=== PATIENT | male | born 1945 | race Caucasian/White ===

== ENCOUNTER 2017-07-08 20:18 | Inpatient (IN) | payer MEDICARE, SELFPAY ==
[2017-07-08 20:19] VITALS: BP 157/92; PULSE 97; RESP 16; TEMP 36.9; O2SAT 94; BMI 36.1
--- NOTE | 2017-07-08 20:49 | CT_ITS ---
STUDY: CT ABDOMEN AND PELVIS WITH CONTRAST REASON FOR EXAM: Male, 71 years old. Abdominal pain and constipation RADIATION DOSAGE (If Supplied By Facility): CTDIvol = ( 16.93 ) mGy, DLP = ( 1282.82 ) mGycm TECHNIQUE: Transaxial images were obtained from the dome of the diaphragm to the symphysis pubis without oral contrast. 100 ml of Isovue 300 contrast was administered. Sagittal and coronal images were reconstructed. Individualized dose optimization techniques were used for this CT. COMPARISON: None. FINDINGS: The visualized lung bases are unremarkable. Calcific aortic valve disease. Normal liver. Normal gallbladder and extrahepatic biliary system. Normal spleen. Normal pancreas. Normal bilateral adrenal glands. Normal right kidney. Normal left kidney. Normal visualized stomach. Normal small intestine. There is a sigmoid volvulus with swirling of the mesentery noted near its root. There is increased gas and stool throughout the colon. There is no bowel wall thickening or pneumatosis. Appendix is not visualized. Normal abdominal aorta. Normal inferior vena cava. Normal retroperitoneum. Normal urinary bladder. There are bilateral fat-containing inguinal hernias. Normal abdominal wall. Mild dextroconvex scoliosis. CT/Abdomen/Pelvis W IV Cont ONLY IMPRESSION: Sigmoid volvulus and colonic ileus. N.B. : The above information has been verbally conveyed by Papa Duke MD to , Covering Physician, on 07/08/2017 22:25:05 (ET). Electronically Signed: Papa Duke MD at 22:22 EST , Service support , N.B. : The above information has been verbally conveyed by Papa Duke MD to , Covering Physician, on 07/08/2017 22:25:05 (ET).
--- NOTE | 2017-07-08 20:53 | ED.VISSUMM ---
- ER Visit Summary Date of Service: 07/08/17 Chief Complaint: Periumbilical abdominal pain History of Present Illness: The patient is a 71 M no prior abdominal surgeries. Patient states that he has had periumbilical abdominal pain since Sunday. Associated constipation with no bowel movement since Sunday. Denies any back pain. No history of aneurysms. Denies any fever. No dysuria. No melena. He has had this before but has never had diverticulitis. States his primary care physician put him on Cipro because that typically seems to help. He denies any fever. He denies any abdominal trauma. Physical Examination: Well-appearing older male. Vital signs are stable afebrile. He does not look septic or toxic. He is in no acute distress. HEENT exam unremarkable. Neck nontender. Lungs clear to auscultation bilaterally. Heart for 6 systolic ejection murmur history of a murmur. Abdomen is distended but soft. Positive bowel sounds. No peritoneal signs. No hernias or masses. Both the right upper right lower quadrants are unremarkable. I do not appreciate any pulsatile mass. He is moving all 4 extremities. Neurovascular intact. Back exam nontender. Neurologically is awake alert without focal deficits. Test Results: CBC normal with a white count 7 H&H 15 and 42. BMP unremarkable potassium of 3.2 with normal BUN and creatinine and gap. Liver enzymes normal. Lipase normal. UA normal. Recent labs including clinic I reviewed his brought and they were unremarkable. CT abdomen pelvis done with IV contrast only as read by the radiologist shows a sigmoid volvulus. No perforation. I did review the CAT scan. Emergency Department Course and Treatment: Abdominal labs and a CT abdomen and we obtained with IV contrast only. He will be treated with IV fluids, morphine and Zofran. Treatment Plan: I spoke with Dr. Heydi Bean general surgeon education paraprofessional should be and evaluate the patient. Disposition: [] Impression: Acute abdominal pain secondary to acute sigmoid volvulus This note was generated with [employer] dictation software. It may contain incorrect words, spelling, and punctuation that were not noted in review of the chart prior to signing ED Disposition - Plan for ED Patient: Chief Complaint: Abd Pain Referrals: Antonio Rangel MD [Primary Care Provider] -
[2017-07-08 21:14] LABS: Absolute Lymphocyte Count 0.68 X10^3/ul (0.83-4.51); Absolute Neutrophil Count 5.7 X10^3/uL (2.0-7.7); Basophil# 0.01 X10^3/uL; Basophil% 0.1 % (0-1); Eosinophil# 0.07 X10^3/uL; Hematocrit 42.3 % (40-54); Lymphocyte # 0.68 X10^3/ul (4.0); Lymphocyte % 9.7 % (19-41); Mean Corp Hgb Conc 35.5 g/gl (32-36); Mean Corpuscular Hgb 30.7 pg (27.0-32.0); Mean Corpuscular Volume 86.7 fL (80-94); Mean Platelet Vol. 10.6 fl (6.2-12.0); Monocyte# 0.56 X10^3/uL; Neutrophil # 5.68 X10^3/uL (2.7-7.7); Neutrophil % 81.1 % (47-70); Platelet Count 151 K/mm3 (150-450); RBC Distribution Width CV 14.1 % (11.6-14.6); RBC Distribution Width SD 44.2 fl (35.1-43.9); Red Blood Count 4.88 M/mm3 (4.6-6.2)
[2017-07-08 21:17] LABS: POSITIVE COUNT NO; POSITIVE DIFFERENTIAL NO; POSITIVE MORPHOLOGY NO
[2017-07-08] MEDS: 0.9% Normal Saline 1,000 ML 125 ML IV (21:22)
[2017-07-08 21:27] LABS: AST(SGOT) 19 U/L (15-37); Alanine Aminotransfer ALT/SGPT 34 U/L (16-61); Alkaline Phosphatase 73 U/L (45-117); Anion Gap 10 (5-15); BUN 13 mg/dL (7-18); Bilirubin, Direct 0.15 mg/dL (0.00-0.30); Calcium,Total 8.7 mg/dL (8.5-10.1); Chloride 101 mmol/L (98-107); Creatinine, Serum 0.86 mg/dL (0.70-1.30); EST Glomerular Filtration Rate 93 mL/min (>60); Est Glom Filt Rate - Afr Amer 112 mL/min (>60); Estimated Creatinine Clearance 88.98 ml/min; Globulin 3.4 g/dL (2.2-4.2); Glucose 113 mg/dL (74-106); Lipase 64 U/L (73-393); Potassium 3.2 mmol/L (3.5-5.1); Protein, Total 7.4 g/dL (6.4-8.2); Sodium Level 138 mmol/L (136-145)
[2017-07-08 21:30] LABS: Bacteria 0 SEEN /hpf (None Seen); Mucous, Urine 0 SEEN /hpf (<or=2+); Red Blood Cells-Urine 0 SEEN /hpf (0-5); White Blood Cells 0 SEEN /hpf (0-5)
[2017-07-08 21:32] LABS: Color, Urine Yellow (Yellow); Glucose, Dipstick Normal (Normal); Ketone-Dipstick 5 mg/dl (Negative); Leukocyte Esterase-Dipstick Negative /ul (Negative); Nitrite-Dipstick Negative (Negative); Occult Blood-Urine Negative /ul (Negative); Protein-Dipstick Negative (Negative); Specific Gravity, Urine 1.015 (1.002-1.030); Urine Bilirubin Dipstick Negative (Negative); Urine Clarity Sl. Cloudy (Clear); Urine Urobilinogen Normal (Normal)
[2017-07-08 21:41] LABS: Squamous Epithelial Cells - UA 0-5 SEEN /hpf (0-5)
[2017-07-08] MEDS: HYDROcodone Bitartrate/Apap 5/325 Tablet PO (22:29)
[2017-07-08 23:09] VITALS: BP 166/95; PULSE 111; RESP 15; TEMP 36.9; O2SAT 94; BMI 36.1
--- NOTE | 2017-07-08 23:16 | ED.RN ---
Dr. Bean at bedside.
--- NOTE | 2017-07-08 23:48 | HP.PCM_ITS ---
History and Physical Date of Admission: 07/08/17 Chief Complaint: abdominal pain History of Present Illness: 71 y/o WM presents with abdominal pain. Noted since Sunday (4 days prior to presentation), has had previous episodes of such pain, he states usually treated with Cipro. He has been dx'd with colitis in past. Denies blood in stools. Has never had a complete colonoscopy, attempts were made at 2014, then had a virtual colonoscopy in 2015. Had attempted colonoscopy in 2009 - could not reach past hepatic flexure. Has constipation, but usually with a bowel movement every day or every other day. Has not had a bowel movement since Sunday, last passed normal flatus on . Denies nausea/emesis. 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 surgery vein laser surgery Medications: flomax effexor ativan bentyl proscar protonix mobic calcium MVI Allergies: augmentin ibuprofen Social history: TOB use denies , lives with Review of Systems: General - denies fevers, denies weight loss Cardiovascular denies chest pain, denies history of heart attack, has known mild aortic stenosis Pulmonary denies shortness of breath, denies coughing up blood Gastrointestinal as per HPI, denies blood in stools Neurological denies numbness/weakness of extremities, denies seizures, denies history of stroke Genitourinary denies burning with urination, denies blood in urine Hematological denies spontaneous/prolonged bleeding Skin denies open nonhealing wounds, has had BCCa removed from face Musculoskeletal has chronic joint pain due to eosinophilic fasciitis, right shoulder pain Endocrine denies diabetes Psychological denies hallucinations Physical examination: Vital signs Ht: 6' Wt: 271# Temp 98.5 HR 97 RR 16 BP 157/92 General WD/WN obese WM in no apparent distress, alert and oriented HEENT Normocephalic. EOM intact with sclera clear and no icterus noted. Wearing glasses. Neck is supple with no jugular venous distention noted. Trachea is midline. Lungs clear to auscultation, normal breath sounds in all lung murray. No rales/rhonchi/wheezing noted. No labored breathing noted, such as retractions. Heart normal S1 and S2 auscultated. No rubs/clicks/murmurs noted. Abdomen soft and tender but no peritoneal signs, distended, protuberant/ obese, difficult to determine if any masses due to body habitus. Extremities no calf tenderness noted. Genitourinary/Rectal deferred Skin normal skin integrity. Neurological non focal. Psychological normal affect, patient is calm and appropriate Impression: bowel obstruction sigmoid volvulus Discussion/Plan: I have discussed the above with the patient and his who is present with him. Will attempt decompressive colonoscopy and placement of rectal tube. Recommend laparoscopic sigmoid colectomy in the near future. However, given the fact that the patient has a known tortuous and redundant colon (no one has been able to complete a colonoscopy on this patient), this may not be successful. In which case, then I will proceed to open sigmoid colectomy. I have counseled the patient as to the risks of the procedure, including but not limited to: infection, bleeding, injury to any blood vessels/nerves, scar tissue, injury to any intraabdominal organs, injury to kidney/ureters, injury to bowel/bladder, intraabdominal abscess/bleeding, hernias at incisional sites, wound infections, need for colostomy, complications of anesthesia, postoperative pneumonia/cardiac problems/blood clots etc. the patient understands. I have answered all questions to the patient?s satisfaction and the patient has no further questions.
[2017-07-09] VITALS (10 sets, daily range): BP systolic 112–157; BP diastolic 50–92; PULSE 60–83; RESP 16–18; TEMP 36.4–36.9; O2SAT 93–99; BMI 35.4; BMI 35.5
--- NOTE | 2017-07-09 00:07 | EKG12_ITS ---
Test Reason : PRE OP Blood Pressure : / mmHG Vent. Rate : 095 BPM Atrial Rate : 095 BPM P-R Int : 258 ms QRS Dur : 120 ms QT Int : 360 ms P-R-T Axes : 043 -24 037 degrees QTc Int : 452 ms Sinus rhythm with 1st degree A-V block Right bundle branch block Abnormal ECG Confirmed by RADHA SOLIMAN, RAUDEL ([id number]), film and video editor CONSTANZA MENA ([id number]) on 07/11/2017 1:48:56 PM Referred By: JOSSY Confirmed By:RAUDEL GARCIA MD
[2017-07-09] MEDS: 0.9% Normal Saline 1,000 ML 125 ML IV ×3 (04:36→20:05)
--- NOTE | 2017-07-09 04:42 | PCM.IMDPSTOP ---
Immediate Post-Op Note Date of Procedure: 07/09/17 Primary Surgeon/Physician: Heydi Bean vision specialist: NOT,DEFINED Pre-Operative Diagnosis: sigmoid volvulus Post-Operative Diagnosis: same Surgery/Procedure Performed:: flexible sigmoidoscopy, placement of rectal tube Description of Surgical Findings:: sigmoid volvulus, no evidence of gangrene Estimated Blood Loss: none Specimen's removed: none Type of Anesthesia:: General/Supplemental, IV Sedation - 5 mg versed, 100 micrograms of fentayl ASA Class: ASA3 Plus Emergency - Admit VTE Documentation VTE Present on Admission: Yes VTE Mechan Device Prophylaxis: SCD's
--- NOTE | 2017-07-09 04:43 | PCM.OPRPT ---
Report of Operation Date of Procedure: 07/09/17 Pre-Operative Diagnosis: sigmoid volvulus Post-Operative Diagnosis: same Surgery/Procedure Performed:: colonoscopy to hepatic flexure for decompression, placement of rectal tube Description of Surgical Findings:: sigmoid volvulus, no evidence of gangrene coding advisor: NOT,DEFINED Type of Anesthesia:: IV Sedation - 5 mg versed, 100 micrograms of fentayl Anesthesiologist: Heydi Bean Specimen's removed: none Estimated Blood Loss (mL): none Fluids Replaced: 300 ml RL Description of Procedure: After informed consent was given, the patient was brought to the endoscopy suite and placed in the supine position. Appropriate time out protocol was followed. Appropriate cardiac, blood pressure, and pulse oximetry monitoring was placed. After stable vital signs were noted, the patient was given intravenous conscious sedation by me. The patient was then placed in the left lateral decubitis position. The colonoscope was lubricated and carefully inserted into the patients anus. It was then advanced into the rectum. Very carefully it was advanced to the apex and with gentle dilatation with air, the colonoscope was then advanced past the point of volvulus into the left descending colon. The colonoscopy was advanced past the splenic flexure, into the transverse colon. However, the scope could not be advanced beyond the hepatic flexure into the ascending colon. The patient had a redundant and tortuous colon. At this point, the colonoscope was slowly retracted back. There was no evidence of gangrene, the mucosa appeared pink and healthy. No masses or ulcers were noted. No mucosal changes were noted. Where feasible, any insufflated gas was aspirated out to further decompress the bowel. A 36 Fr Pezzar catheter was placed proximal to the point of volvulus. It was taped to the patient's buttocks. The colonoscope was removed intact. Patient tolerated procedure well. - Complications none noted - Admit VTE Documentation VTE Present on Admission: Yes VTE Mechan Device Prophylaxis: SCD's
--- NOTE | 2017-07-09 04:46 | OP.PCM_ITS ---
Report of Operation Date of Procedure: 07/09/17 Pre-Operative Diagnosis: sigmoid volvulus Post-Operative Diagnosis: same Surgery/Procedure Performed:: colonoscopy to hepatic flexure for decompression, placement of rectal tube Description of Surgical Findings:: sigmoid volvulus, no evidence of gangrene yoke presser: NOT,DEFINED Type of Anesthesia:: IV Sedation - 5 mg versed, 100 micrograms of fentayl Anesthesiologist: Heydi Bean Specimen's removed: none Estimated Blood Loss (mL): none Fluids Replaced: 300 ml RL Description of Procedure: After informed consent was given, the patient was brought to the endoscopy suite and placed in the supine position. Appropriate time out protocol was followed. Appropriate cardiac, blood pressure, and pulse oximetry monitoring was placed. After stable vital signs were noted, the patient was given intravenous conscious sedation by me. The patient was then placed in the left lateral decubitis position. The colonoscope was lubricated and carefully inserted into the patient?s anus. It was then advanced into the rectum. Very carefully it was advanced to the apex and with gentle dilatation with air, the colonoscope was then advanced past the point of volvulus into the left descending colon. The colonoscopy was advanced past the splenic flexure, into the transverse colon. However, the scope could not be advanced beyond the hepatic flexure into the ascending colon. The patient had a redundant and tortuous colon. At this point, the colonoscope was slowly retracted back. There was no evidence of gangrene, the mucosa appeared pink and healthy. No masses or ulcers were noted. No mucosal changes were noted. Where feasible, any insufflated gas was aspirated out to further decompress the bowel. A 36 Fr Pezzar catheter was placed proximal to the point of volvulus. It was taped to the patient's buttocks. The colonoscope was removed intact. Patient tolerated procedure well. - Complications none noted - Admit VTE Documentation VTE Present on Admission: Yes VTE Mechan Device Prophylaxis: SCD's
--- NOTE | 2017-07-09 07:39 | PCM.PN.SRG ---
Subjective: Patient feeling much improved, slight lower abdominal crampy discomfort, passing flatus, has had liquid bowel movements - Physical Exam General: Alert Oral: Moist Mucosa Neck: Supple Abdomen: Bowel Sounds Present, Soft Vital Signs Temp Pulse Resp BP Pulse Ox 98.5 F 75 18 139/72 H 93 07/09/17 02:10 07/09/17 02:10 07/09/17 02:10 07/09/17 02:10 07/09/17 02:10 Oxygen Flow Rate 2 Oxygen Delivery Method Room Air Weight: 118.7 kg Body Mass Index (BMI) 35.4 Intake and Output for Last 24 Hours 07/07/17 07/08/17 07/09/17 23:59 23:59 23:59 Intake Total 646 / 646 Output Total 700 / 700 Balance -54 / -54 Assessment/Plan Impression: sigmoid volvulus, s/p decompressive colonoscopy Plan: Recommend laparoscopic sigmoid colectomy, will discuss with Dr. Fox for date and time
--- NOTE | 2017-07-09 10:42 | CASEMGMT ---
RN MARY Face to Face with patient for initial transition planning/care coordination assessment. RN CM introduced self and role at [facility]. Patient lying in bed, alert and oriented. Patient willing to participate in assessment and is able to answer all questions appropriately. Care providers, pharmacy, and demographics verified. See link attached. Patient wishes to discharge home, denies need for home health at this time. Patient states he has no further needs or concerns at this time. CM to follow for discharge planning needs that may arise. Disposition Plan: Patient to discharge home with family support and follow-up plans in place.
[2017-07-09] MEDS: Tamsulosin HCl 0.4 MG Capsule PO (11:16)
[2017-07-09] MEDS: Venlafaxine XR 37.5 MG Capsule PO (11:16)
[2017-07-09] MEDS: Finasteride 5 MG Tablet PO (21:51)
[2017-07-09] MEDS: LORazepam 0.5 MG Tablet PO (23:21)
[2017-07-10 02:50] VITALS: BP 116/54; PULSE 67; RESP 14; TEMP 36.6; O2SAT 97
[2017-07-10] MEDS: 0.9% Normal Saline 1,000 ML 125 ML IV ×3 (02:59→19:43)
[2017-07-10 10:08] VITALS: BP 138/73; PULSE 74; RESP 20; TEMP 36.7; O2SAT 95
[2017-07-10] MEDS: Tamsulosin HCl 0.4 MG Capsule PO (10:10)
[2017-07-10] MEDS: Venlafaxine XR 37.5 MG Capsule PO (10:10)
[2017-07-10] MEDS: Electrolyte Solution/Peg's 4000 ML PO (10:10)
[2017-07-10] MEDS: Meloxicam 15 MG Tablet PO (10:10)
[2017-07-10] MEDS: Pantoprazole Sodium 40 MG Tablet PO (10:10)
[2017-07-10] MEDS: 0.9% NaCl Peripheral Flush Adult/Peds IV (10:46)
[2017-07-10 15:43] VITALS: BP 148/86; PULSE 77; RESP 18; TEMP 36.5; O2SAT 98
--- NOTE | 2017-07-10 17:36 | ECHOD_ITS ---
Reason For Study: MURMUR Procedure This was a 2D Doppler, Color Flow transthoracic echocardiogram. Contrast injection was performed. The study was technically difficult. Exam performed portable in patient room. Left Ventricle Normal size and thickness. The estimated ejection fraction is 65 %. Stage 2 diastolic dysfunction. No regional wall motion abnormalities noted. Right Ventricle Normal size and thickness. Normal systolic function. Atria The left atrium is mildly enlarged. The right atrium is mildly enlarged. Normal atrial septum. Mitral Valve The mitral valve is structurally normal. No prolapse or stenosis seen. Trivial mitral valve insufficiency. Tricuspid Valve Normal tricuspid valve. Trivial tricuspid valve insufficiency. Right ventricular systolic pressure estimated to be 22 mmHg. Aortic Valve Trisinus/trileaflet aortic valve. Severe focal aortic valve thickening. Mild focal aortic valve calcification. Fixed non coronary cusp, normal opening of left and right coronary cusps. Moderate aortic stenosis. Peak aortic valve gradient 33 mmHg. Mean aortic valve gradient 20 mmHg. Calculated aortic valve area (continuity equation) is 1.3 cm2. Pulmonic Valve The pulmonic valve is not well visualized. Great Vessels Calcified aortic root. Normal arch. Normal inferior vena cava. Inferior vena cava collapse with sniff. Pericardium/Pleural No pericardial effusion. Medication Diluted definity 3ml given slow IV push to enhance endocardial definition. MMode/2D Measurements & Calculations LVIDd: 4.0 cm IVSd: 0.84 cm LVOT diam: 2.2 cm LVIDs: 2.8 cm LVPWd: 0.95 cm LVOT area: 3.7 cm2 RVDd: 3.3 cm FS: 30.1 % Ao root diam: 3.8 cm LAV(MOD-bp): 63.4 ml EDV(MOD-sp4): 149.6 ml LA dimension: 4.4 cm LAV(MOD-bp) Indexed: 26.6 ml/m2 ESV(MOD-sp4): 39.7 ml LAV(MOD-sp2): 68.8 ml EF(MOD-sp4): 73.5 % LAV(MOD-sp4): 56.5 ml EDV(MOD-sp2): 84.4 ml SV(MOD-sp4): 110.0 ml SV(MOD-sp2): 57.2 ml EF(MOD-sp2): 67.7 % LA A4 area: 20.9 cm2 RA A4 area: 20.5 cm2 Doppler Measurements & Calculations MV E max anna: 111.9 cm/sec Ao V2 max: 287.3 cm/sec LV V1 max: 102.7 cm/sec MV A max anna: 67.9 cm/sec Ao max P.2 mmHg LV V1 max P.2 mmHg MV E/A: 1.6 Ao V2 mean: 201.3 cm/sec LV V1 mean P.0 mmHg Ao mean P.0 mmHg LV V1 mean: 64.8 cm/sec Ao V2 VTI: 64.1 cm LV V1 VTI: 23.5 cm ADRIANA(I,D): 1.3 cm2 ADRIANA(V,D): 1.3 cm2 SV(LVOT): 85.9 ml PA V2 max: 116.3 cm/sec TR max anna: 204.9 cm/sec TR max P.8 mmHg Interpretation Summary The estimated ejection fraction is 65 %. Stage 2 diastolic dysfunction. Trivial mitral valve insufficiency. Trivial tricuspid valve insufficiency. Right ventricular systolic pressure estimated to be 22 mmHg. Fixed non coronary cusp, normal opening of left and right coronary cusps. Moderate aortic stenosis by estimated aortic valve area. The study was technically difficult. Contrast injection was performed. There is no comparison study available. Ordering Physician: Jordan Fox Referring Physician: TALITA STEWART Performed By: Anuradha Zhang, JONNIE, RVT
--- NOTE | 2017-07-10 17:52 | EKG12_ITS ---
Test Reason : Blood Pressure : / mmHG Vent. Rate : 074 BPM Atrial Rate : 074 BPM P-R Int : 282 ms QRS Dur : 122 ms QT Int : 396 ms P-R-T Axes : 043 -41 021 degrees QTc Int : 439 ms Sinus rhythm with 1st degree A-V block Left axis deviation Right bundle branch block Abnormal ECG When compared with ECG of 08-JUL-2017 23:55, MANUAL COMPARISON REQUIRED, DATA IS UNCONFIRMED Confirmed by RADHA SOLIMAN, RAUDEL ([id number]), photography editor CONSTANZA MENA ([id number]) on 07/23/2017 3:30:56 PM Referred By: JOSSY Confirmed By:RAUDEL GARCIA MD
--- NOTE | 2017-07-10 18:33 | PCM.PN.SRG ---
Subjective: moving bowels, with slow bowel prep, mild abdominal discomfort - Physical Exam General: Alert, Oriented x3, Cooperative Lungs: Clear to auscultation, Normal air movement Cardiovascular: Regular rate, Murmur - systolic ejection murmur that radiates Abdomen: Bowel Sounds Present, Soft, Non Tender, Distended Vital Signs Temp Pulse Resp BP Pulse Ox 97.7 F L 77 18 148/86 H 98 07/10/17 15:43 07/10/17 15:43 07/10/17 15:43 07/10/17 15:43 07/10/17 15:43 Oxygen Flow Rate 2 Oxygen Delivery Method Room Air Weight: 118.7 kg Body Mass Index (BMI) 35.4 Intake and Output for Last 24 Hours 07/08/17 07/09/17 07/10/17 23:59 23:59 23:59 Intake Total 4540 / 4540 1216 / 1216 Output Total 2350 / 2350 1425 / 1425 Balance 2190 / 2190 -209 / -209 Assessment/Plan patient with sigmoid volvulus, status post decompressive colonoscopy and rectal tube placement. Rectal tube has since fallen out. the patient is currently comfortable and tolerating a slow bowel prep with some abdominal distention but no obstipation or constipation. We will plan for neomycin and Flagyl later tonight. We'll make the patient nothing by mouth at 6 AM and then plan for laparoscopic assisted sigmoid colectomy for volvulus tomorrow afternoon. Patient notes an allergy to amoxicillin, but has had no issues with Keflex. We will plan for 2 g of cefotetan on-call to surgery. Patient has a history of aortic stenosis. Last echocardiogram was 1 year previously and this demonstrated aortic valve area of 1.26. Spoke with Dr. Melisa ruff. Will obtain repeat echocardiogram and EKG in morning. Potassium mildly low 2 days previously, we will recheck labs in morning and adjust electrolytes as necessary. Plan for SCDs for DVT prophylaxis. Will have incentive spirometry for pulmonary toilet now and postoperatively.
[2017-07-10] MEDS: metroNIDAZOLE 500 MG Tablet PO ×2 (19:33→21:30)
[2017-07-10 20:00] VITALS: BP 136/80; PULSE 76; RESP 18; TEMP 36.6; O2SAT 97
[2017-07-10] MEDS: Finasteride 5 MG Tablet PO (21:30)
[2017-07-11] VITALS (11 sets, daily range): BP systolic 139–166; BP diastolic 74–92; PULSE 65–88; RESP 16–18; TEMP 36.4–36.9; O2SAT 84–100; BMI 35.4
[2017-07-11] MEDS: 0.9% Normal Saline 1,000 ML 125 ML IV ×3 (03:54→22:06)
[2017-07-11] MEDS: metroNIDAZOLE 500 MG Tablet PO (05:27)
[2017-07-11 06:42] LABS: Absolute Lymphocyte Count 0.66 X10^3/ul (0.83-4.51); Absolute Neutrophil Count 2.8 X10^3/uL (2.0-7.7); Basophil# 0.02 X10^3/uL; Basophil% 0.5 % (0-1); Eosinophil# 0.14 X10^3/uL; Eosinophils% 3.6 % (0-5); Hematocrit 39.5 % (40-54); Hemoglobin 13.4 g/dl (13.0-16.5); Lymphocyte # 0.66 X10^3/ul (4.0); Lymphocyte % 17.1 % (19-41); Mean Corp Hgb Conc 33.9 g/gl (32-36); Mean Corpuscular Volume 88.6 fL (80-94); Mean Platelet Vol. 10.6 fl (6.2-12.0); Monocyte# 0.27 X10^3/uL; Neutrophil # 2.77 X10^3/uL (2.7-7.7); Neutrophil % 71.8 % (47-70); Platelet Count 128 K/mm3 (150-450); Red Blood Count 4.46 M/mm3 (4.6-6.2); White Blood Count 3.9 K/mm3 (4.4-11.0)
[2017-07-11 06:46] LABS: POSITIVE COUNT NO; POSITIVE DIFFERENTIAL NO; POSITIVE MORPHOLOGY NO
--- NOTE | 2017-07-11 07:01 | RAD_ITS ---
STUDY: X-RAY - ABDOMEN/PELVIS REASON FOR EXAM: Male, 71 years old. Abdominal pain. History of sigmoid volvulus. TECHNIQUE: AP supine and upright views of the abdomen and pelvis. COMPARISON: Comparison is made with prior CT scan of the abdomen dated July 08, 2017. FINDINGS: Gaseous distention of the colon. Findings suggestive of a sigmoid volvulus with the dilated sigmoid and the right mid abdomen. There is no demonstrated free abdominal air. The visualized liver, spleen and kidneys are grossly normal in size and morphology. Normal soft tissue structures. There are diffuse degenerative changes of the visualized lumbar spine. Dextroscoliosis of the lumbar spine. RAD/Abd Inc Decub and/or Erect IMPRESSION: Findings in keeping with a sigmoid volvulus and colonic distention. Electronically Signed: Waqas Yee MD at 12:28 EST Tel [phone], Service support ,
[2017-07-11 07:02] LABS: Anion Gap 8 (5-15); BUN 5 mg/dL (7-18); Chloride 108 mmol/L (98-107); Creatinine, Serum 0.83 mg/dL (0.70-1.30); EST Glomerular Filtration Rate 97 mL/min (>60); Est Glom Filt Rate - Afr Amer 118 mL/min (>60); Glucose 104 mg/dL (74-106); Sodium Level 143 mmol/L (136-145)
[2017-07-11] MEDS: Venlafaxine XR 37.5 MG Capsule PO (08:41)
[2017-07-11] MEDS: Tamsulosin HCl 0.4 MG Capsule PO (08:41)
--- NOTE | 2017-07-11 15:00 | COL_PTH ---
PATIENT: JAHAIRA MAYORGA LOC: [id number] U#:[id number] AGE/SX: 71/M ROOM: [facility] [place] RE07/08/[address]: Dr. Heydi Bean MD : [id number] BED: 1 DIS: 07/14/2017 SPEC #: [id number] RECD: 07/12/17 12:12 STATUS: DANITA REJaime #: [id number] NICHOLAS: 07/11/17 15:[address]: Heydi Bean DEPT: SURGICAL PATHOLOGY RECD BY: Jordan Coreas ENTERED: 07/12/17 13:12 SP TYPE: COLON OTHR DR: Dr. Antonio Rangel MD Tissues: Colon, NOS Procedures: Surgery Specimen Level V HEADER OPERATION: Sigmoid colectomy PRE-OP DIAGNOSIS: Bowel obstruction, sigmoid volvulus TISSUE SUBMITTED: Sigmoid colon MICROSCOPIC DIAGNOSIS Sigmoid colon, colectomy: Dilated portion of sigmoid colon, consistent with clinical impression of sigmoid volvulus. Focal minimal diverticulosis. Focal changes consistent with hyperplastic polyp. Pericolonic adipose tissue a minute benign lymph node. RAAD:wesley 07/16/17 MICROSCOPIC DESCRIPTION Slides are reviewed. GROSS DESCRIPTION Received in fixative is one container labeled with the patient's name and designated sigmoid colon. The specimen consists of a dilated segment of colon with attached pericolonic adipose tissue measuring 47 cm in length and 3 to 8 cm in diameter. The serosal surface shows a glistening, focal congested area. No mucosal lesion is identified. The mucosa in the dilated portion of the bowel shows reduced to flattened mucosal fold. At one end, a 16 cm segment of mucosa show normal mucosal fold. Both resection margins are stapled. Sections will be submitted after overnight fixation. Attached pericolonic adipose tissue focally also show portion of omental tissue. / RAAD:wesley 07/12/17 The mucosa shows a focally thickened area. Sections of the nondilated portion of the bowel also reveal a few small diverticula. No ruptured diverticula are noted. Sections of the pericolonic adipose tissue do not reveal any obviously enlarged lymph nodes. Society Reporter sections are submitted in eight cassettes as follows: 1 ? resection margin, dilated portion of the bowel, 2 - opposite resection margin, 3 ? focally thickened mucosal area, 4 & 5 - healthcare representative sections from the dilated portion of the bowel, 6 & 7 ? diverticula, 8 ? pericolonic adipose tissue. / RAAD:wesley 07/13/17 TC:5 [facility]: [id number]
[2017-07-11] MEDS: Bupivacaine 0.25% 30 ML Vial (18:38)
--- NOTE | 2017-07-11 18:38 | PCM.OPRPT ---
Report of Operation Date of Procedure: 07/11/17 Pre-Operative Diagnosis: sigmoid volvulus Post-Operative Diagnosis: sigmoid volvulus Surgery/Procedure Performed:: segmental sigmoid resection digital color press operator: Rosaura Gallardo Type of Anesthesia:: General Anesthesiologist: Familia Steele - ASA3 Specimen's removed: sigmoid colon Estimated Blood Loss (mL): 50 Fluids Replaced: 1600 Description of Procedure: The patient was brought to the operating suite. Sign in was performed verifying patient, site, procedure, position, and DVT prophylaxis with SCDs. Patient 2 g of cefotetan. Preoperative bowel prep of mechanical and antibiotic comprised of GoLYTELY and then neomycin and Flagyl 1 g 3 doses evening before was given Following induction of general anesthetic. The patients abdomen was prepped and draped in the usual fashion. Timeout was performed verifying patient, site, position. Local anesthetic was injected below the umbilicus. Incision made and dissection carried down to the umbilical root fascia. . A 10 mm Rucker trocar was inserted and secured with the stay sutures. Pneumoperitoneum to 15 mmHg was insufflated. Visual inspection revealed significantly distended colon, consistent with a sigmoid volvulus with an inability to make any other good visualization . 2 5mm ports were placed in the standard midline position. The umbilical incision was extended inferiorly to a length of about 6 cm and a wound protector placed. the loop of sigmoid colon was brought up through the incision proximally and distally as far as possible.. Complete division of the mesentery to the bowel was undertaken sequentially using harmonic scalpel, with larger vessels ligated with 0 Vicryl ties and then divided. The proximal and distal bowel was transected with an intestinal load echelon stapler. Following this a functional stapled end-to-end anastomosis was performed between the two divided colon ends with an echelon stapler. The staple line was checked for hemostasis and following this the anastomosis closed with a TA stapler creating a wide triangle opening that was easily palpable. A 3-0 silk suture was used to take tension off the apex of the staple line. Gown and gloves were changed. The umbilical fascial defect was closed with a running 0 Prolene suture. Subcutaneous fat reapproximated with interrupted 3-0 Vicryl sutures. Skin was closed with 4-0 Monocryl subcuticular sutures. Steri-Strips and bandages were applied. The patient was brought to recovery room in stable condition. - Admit VTE Documentation VTE Present on Admission: No VTE Mechan Device Prophylaxis: SCD's
[2017-07-11] MEDS: Finasteride 5 MG Tablet PO (22:05)
[2017-07-12] VITALS: BP 139/75; PULSE 79; RESP 16; TEMP 37; O2SAT 92
[2017-07-12 04:00] VITALS: BP 123/61; PULSE 74; RESP 16; TEMP 36.9; O2SAT 97
[2017-07-12] MEDS: 0.9% Normal Saline 1,000 ML 125 ML IV (04:43)
[2017-07-12 06:41] LABS: Absolute Lymphocyte Count 0.28 X10^3/ul (0.83-4.51); Hematocrit 37.9 % (40-54); Lymphocyte # 0.28 X10^3/ul (4.0); Mean Corp Hgb Conc 34.3 g/gl (32-36); Mean Corpuscular Hgb 30.1 pg (27.0-32.0); Mean Corpuscular Volume 87.7 fL (80-94); Mean Platelet Vol. 10.8 fl (6.2-12.0); Monocyte# 0.33 X10^3/uL; Monocyte% 5.9 % (0-10); Neutrophil # 5.02 X10^3/uL (2.7-7.7); Neutrophil % 88.9 % (47-70); Platelet Count 125 K/mm3 (150-450); RBC Distribution Width CV 13.7 % (11.6-14.6); Red Blood Count 4.32 M/mm3 (4.6-6.2); White Blood Count 5.6 K/mm3 (4.4-11.0)
[2017-07-12 06:43] LABS: POSITIVE COUNT NO; POSITIVE DIFFERENTIAL YES; POSITIVE MORPHOLOGY NO
[2017-07-12 06:44] LABS: Differential Indicated SCAN CRITERIA MET
[2017-07-12 06:55] LABS: AST(SGOT) 16 U/L (15-37); Alanine Aminotransfer ALT/SGPT 21 U/L (16-61); Alkaline Phosphatase 58 U/L (45-117); Anion Gap 6 (5-15); BUN 6 mg/dL (7-18); BUN/Creat Ratio 6.3 RATIO (10-20); Chloride 105 mmol/L (98-107); Creatinine, Serum 0.96 mg/dL (0.70-1.30); EST Glomerular Filtration Rate 83 mL/min (>60); Est Glom Filt Rate - Afr Amer 100 mL/min (>60); Estimated Creatinine Clearance 79.71 ml/min; Glucose 109 mg/dL (74-106); Magnesium 2.1 mg/dL (1.6-2.6); Phosphorus 3.8 mg/dL (2.5-4.9); Potassium 3.6 mmol/L (3.5-5.1); Sodium Level 140 mmol/L (136-145)
[2017-07-12 08:00] VITALS: RESP 18
[2017-07-12 08:41] VITALS: BP 138/72; PULSE 91; RESP 18; TEMP 37.5; O2SAT 97
[2017-07-12] MEDS: Pantoprazole Sodium 40 MG Tablet PO (11:03)
[2017-07-12] MEDS: Venlafaxine XR 37.5 MG Capsule PO (11:03)
[2017-07-12] MEDS: Tamsulosin HCl 0.4 MG Capsule PO (11:03)
[2017-07-12] MEDS: Meloxicam 15 MG Tablet PO (11:03)
[2017-07-12] MEDS: oxyCODONE 5 MG Tablet PO (12:47)
--- NOTE | 2017-07-12 13:41 | PCM.PN.SRG ---
Subjective: mild incisional pain - Physical Exam General: Alert, Oriented x3, Cooperative Lungs: Clear to auscultation, Normal air movement Cardiovascular: Regular rate, Murmur - systolic ejection murmur 2 out of 6 Abdomen: Bowel Sounds Present, Soft, Non Tender, - - incision had some bloody drainage. The dressing was changed. The incision is otherwise clean/dry/intact Vital Signs Temp Pulse Resp BP Pulse Ox 99.5 F H 91 18 138/72 H 97 07/12/17 08:41 07/12/17 08:41 07/12/17 08:41 07/12/17 08:41 07/12/17 08:41 Oxygen Flow Rate 2 Oxygen Delivery Method Room Air Weight: 118.7 kg Body Mass Index (BMI) 35.4 Intake and Output for Last 24 Hours 07/10/17 07/11/17 07/12/17 23:59 23:59 23:59 Intake Total 4752 / 4752 4745 / 4745 Output Total 2625 / 2625 900 / 900 400 / 400 Balance 2127 / 2127 3845 / 3845 -400 / -400 Laboratory Tests Past 24 Hrs 07/12/17 07/12/17 05:44 05:44 WBC 5.6 RBC 4.32 L Hgb 13.0 Hct 37.9 L MCV 87.7 MCH 30.1 MCHC 34.3 RDW 13.7 RDW Differential 43.0 Plt Count 125 L MPV 10.8 Immature Gran % (Auto) 0.200 Neut % (Auto) 88.9 H Lymph % (Auto) 5.0 L Sheridan % (Auto) 5.9 Eos % (Auto) 0.0 Baso % (Auto) 0.0 Absolute Neuts (auto) 5.0 Absolute Lymphs (auto) 0.28 L Total Counted Not Reportable Sodium 140 Potassium 3.6 Chloride 105 Carbon Dioxide 29.0 Anion Gap 6 BUN 6 L Creatinine 0.96 Estim Creat Clear Calc 79.71 Est GFR (MDRD) Af Amer 100 Est GFR (MDRD) Non-Af 83 BUN/Creatinine Ratio 6.3 L Glucose 109 H Calcium 8.0 L Phosphorus 3.8 Magnesium 2.1 Total Bilirubin 0.40 AST 16 ALT 21 Alkaline Phosphatase 58 Total Protein 6.0 L Albumin 3.0 L Globulin 3.0 Albumin/Globulin Ratio 1.0 Assessment/Plan patient with sigmoid volvulus, status post decompressive colonoscopy and rectal tube placement - postoperative #1 status post segmental sigmoid colectomy for volvulus patient is currently postoperative day one. He has minimal abdominal tenderness. His incision is intact. He has good bowel sounds without had flatus yet. We will have him maintained on clear liquids but could not advance his diet until he has flatus. If he becomes distended, we will pull back on oral intake. Patient notes frequent urination.-Will decrease IV fluids. This patient tolerating liquids Patient has a history of aortic stenosis. Last echocardiogram was 1 year previously and this demonstrated aortic valve area of 1.26. Spoke with Dr. Valera preoperatively. Repeat echocardiogram and EKG the morning of surgery demonstrated stable cardiac findings. The patient is doing well perioperatively with no cardiac events. Potassium was low preoperatively. Patient given 4 10 mEq K riders. Potassium level and a 3.6., Plan for SCDs for DVT prophylaxis. Will have incentive spirometry for pulmonary toilet now and postoperatively.
[2017-07-12 14:54] VITALS: BP 140/80; PULSE 85; RESP 18; TEMP 36.9; O2SAT 97
[2017-07-12] MEDS: 0.9% Normal Saline 1,000 ML 40 ML IV (14:56)
[2017-07-12 20:40] VITALS: BP 168/96; PULSE 71; RESP 17; TEMP 36.8; O2SAT 95
[2017-07-12] MEDS: Finasteride 5 MG Tablet PO (21:39)
[2017-07-12] MEDS: LORazepam 0.5 MG Tablet PO (21:41)
[2017-07-13 02:06] VITALS: BP 154/85; PULSE 71; RESP 17; TEMP 36.8; O2SAT 94
--- NOTE | 2017-07-13 06:39 | PN.SURG_ITS ---
Subjective: stool x 2, some gas cramping - Physical Exam General: Alert, Oriented x3, Cooperative Lungs: Clear to auscultation, Normal air movement Cardiovascular: Regular rate, No murmurs Abdomen: Bowel Sounds Present, Soft, Non Tender Vital Signs Temp Pulse Resp BP Pulse Ox 98.3 F 71 17 154/85 H 94 07/13/17 02:06 07/13/17 02:06 07/13/17 02:06 07/13/17 02:06 07/13/17 02:06 Oxygen Flow Rate 2 Oxygen Delivery Method Room Air Weight: 118.7 kg Body Mass Index (BMI) 35.4 Intake and Output for Last 24 Hours 07/11/17 07/12/17 07/13/17 23:59 23:59 23:59 Intake Total 4745 / 4745 1883 / 1883 643 / 643 Output Total 900 / 900 1999 / 1999 1525 / 1525 Balance 3845 / 3845 -117 / -117 -882 / -882 Laboratory Tests Past 24 Hrs 07/12/17 07/12/17 05:44 05:44 WBC 5.6 RBC 4.32 L Hgb 13.0 Hct 37.9 L MCV 87.7 MCH 30.1 MCHC 34.3 RDW 13.7 RDW Differential 43.0 Plt Count 125 L MPV 10.8 Immature Gran % (Auto) 0.200 Neut % (Auto) 88.9 H Lymph % (Auto) 5.0 L Coffee % (Auto) 5.9 Eos % (Auto) 0.0 Baso % (Auto) 0.0 Absolute Neuts (auto) 5.0 Absolute Lymphs (auto) 0.28 L Total Counted Not Reportable Sodium 140 Potassium 3.6 Chloride 105 Carbon Dioxide 29.0 Anion Gap 6 BUN 6 L Creatinine 0.96 Estim Creat Clear Calc 79.71 Est GFR (MDRD) Af Amer 100 Est GFR (MDRD) Non-Af 83 BUN/Creatinine Ratio 6.3 L Glucose 109 H Calcium 8.0 L Phosphorus 3.8 Magnesium 2.1 Total Bilirubin 0.40 AST 16 ALT 21 Alkaline Phosphatase 58 Total Protein 6.0 L Albumin 3.0 L Globulin 3.0 Albumin/Globulin Ratio 1.0 Assessment/Plan patient with sigmoid volvulus, status post decompressive colonoscopy and rectal tube placement - postoperative day #2 status post segmental sigmoid colectomy for volvulus . He has minimal abdominal tenderness. His incision is intact. He has good bowel sounds scant flatus but 2 liquid BM. We will have him maintained on clear liquids advance his diet tomorrow if tolerating. If he becomes distended , we will pull back on oral intake. Patient has a history of aortic stenosis. Last echocardiogram was 1 year previously and this demonstrated aortic valve area of 1.26. Spoke with Dr. Valera preoperatively. Repeat echocardiogram and EKG the morning of surgery demonstrated stable cardiac findings. The patient is doing well perioperatively with no cardiac events. Potassium was low preoperatively. Patient given 4 10 mEq K riders. Potassium level and a 3.6., Plan for SCDs for DVT prophylaxis. Will have incentive spirometry for pulmonary toilet now and postoperatively.
[2017-07-13 08:03] VITALS: BP 161/92; PULSE 78; RESP 16; TEMP 36.9; O2SAT 95
[2017-07-13 08:10] VITALS: PULSE 76
[2017-07-13] MEDS: 0.9% Normal Saline 1,000 ML 40 ML IV (08:11)
[2017-07-13] MEDS: Tamsulosin HCl 0.4 MG Capsule PO (09:44)
[2017-07-13] MEDS: Venlafaxine XR 37.5 MG Capsule PO (09:44)
--- NOTE | 2017-07-13 13:00 | CASEMGMT ---
RN CM in to follow-up with patient regarding discharge needs. Patient denies need for HHC or DME at this time and patient plans to discharge home when appropriate. RN CM will continue to follow this patient and plan for a safe discharge.
[2017-07-13 14:00] VITALS: BP 152/92; PULSE 71; RESP 18; TEMP 36.7; O2SAT 96
[2017-07-13 21:45] VITALS: BP 140/96; PULSE 66; RESP 18; TEMP 36.7; O2SAT 97
[2017-07-13] MEDS: Finasteride 5 MG Tablet PO (22:11)
[2017-07-14 05:25] VITALS: BP 138/80; PULSE 67; RESP 18; TEMP 36.7; O2SAT 92
[2017-07-14 07:23] VITALS: BP 147/88; PULSE 71; RESP 18; TEMP 36.7; O2SAT 99
--- NOTE | 2017-07-14 07:31 | PCM.DC.REC ---
Discharge Diet: No Restrictions Discharge Activity: Return to Normal Activity, May Not Drive - while taking narcotic pain medications. Additional Activity Instructions:: Do not drive or work with heavy equipment or sign legal documents for 24 hours. Be aware that pain medications may cause nausea. You should typically eat light foods as you take your pain medications. Pain medications may also cause constipation, if you have difficulty with this please discuss with your doctor. Allergies/Adverse Reactions: Allergies amoxicillin [From Augmentin] Adverse Reaction (Verified 07/09/17 02:28) Abd cramps/diarrhea clavulanic acid [From Augmentin] Adverse Reaction (Verified 07/09/17 02:28) Abd cramps/diarrhea ibuprofen [From Motrin] Adverse Reaction (Verified 07/08/17 20:20) Other Medications to take at Discharge Calcium Citrate - Vit D Tablet 600 mg PO DAILY 07/08/17 Ciprofloxacin [Cipro] 500 mg PO BID 07/08/17 Finasteride [Proscar] 5 mg PO QHS 07/08/17 L.acidoph,Paracasei, B.lactis [Probiotic] 1 each PO DAILY 07/08/17 Lorazepam [Ativan] 0.5 mg PO DAILY PRN PRN 07/08/17 Meloxicam [Mobic] 15 mg PO QODAY 07/08/17 Multivit-Min/FA/Lycopen/Lutein [Centrum Silver Men Tablet] 1 tab PO DAILY 07/08/17 Pantoprazole Sodium [Protonix] 40 mg PO QODAY 07/08/17 Tamsulosin HCl [Flomax] 0.4 mg PO DAILY 07/08/17 Venlafaxine HCl [Effexor] 37.5 mg PO DAILY 07/08/17 Finasteride [Proscar] 5 mg PO QHS tablet 07/14/17 Oxycodone [Oxyir] 5 mg PO Q4H PRN PRN 7 Days #20 tab 07/14/17 Venlafaxine XR [Effexor Xr] 37.5 mg PO DAILY capsule 07/14/17 The following prescriptions were given: Oxycodone [Oxyir] 5 mg PO Q4H PRN PRN 7 Days #20 tab PRN Reason: Severe Pain (6-10/10) Primary Care Physician: Antonio Rangel MD [Primary Care Provider] - Please Follow Up With: Jordan Fox MD - [phone] When: Plan to have a follow up approximately 7 days after surgery.
--- NOTE | 2017-07-14 08:12 | PCM.DC.SUM ---
Discharge Date and Diagnosis Date of Admission: 07/08/17 Date of Discharge: 07/14/17 - Primary Discharge Diagnosis sigmoid volvulus Hospital Course and Treatment Operations: colectomy Summary of Care Provided: The patient is a 71 year old M who presented with an acute sigmoid volvulus. The patient was taken for endoscopy and had a decompressive colonoscopy. Placement of a rectal tube by Dr. Bean. I performed a segmental colon resection on July 11. The patient had return of bowel function on postoperative day 1. He was given clear liquids and advanced to a low-residue diet which he tolerated well. He is ready for discharge to home on postoperative day 3. Discharge Diet: No Restrictions Discharge Activity: Return to Normal Activity, May Not Drive - while taking narcotic pain medications. Additional Activity Instructions:: Do not drive or work with heavy equipment or sign legal documents for 24 hours. Be aware that pain medications may cause nausea. You should typically eat light foods as you take your pain medications. Pain medications may also cause constipation, if you have difficulty with this please discuss with your doctor. Home Medications: Medications to take at Discharge Calcium Citrate - Vit D Tablet 600 mg PO DAILY 07/08/17 Ciprofloxacin [Cipro] 500 mg PO BID 07/08/17 Finasteride [Proscar] 5 mg PO QHS 07/08/17 L.acidoph,Paracasei, B.lactis [Probiotic] 1 each PO DAILY 07/08/17 Lorazepam [Ativan] 0.5 mg PO DAILY PRN PRN 07/08/17 Meloxicam [Mobic] 15 mg PO QODAY 07/08/17 Multivit-Min/FA/Lycopen/Lutein [Centrum Silver Men Tablet] 1 tab PO DAILY 07/08/17 Pantoprazole Sodium [Protonix] 40 mg PO QODAY 07/08/17 Tamsulosin HCl [Flomax] 0.4 mg PO DAILY 07/08/17 Venlafaxine HCl [Effexor] 37.5 mg PO DAILY 07/08/17 Finasteride [Proscar] 5 mg PO QHS tablet 07/14/17 Oxycodone [Oxyir] 5 mg PO Q4H PRN PRN 7 Days #20 tab 07/14/17 Venlafaxine XR [Effexor Xr] 37.5 mg PO DAILY capsule 07/14/17 Following Prescrptions Were Given to Patient: Oxycodone [Oxyir] 5 mg PO Q4H PRN PRN 7 Days #20 tab PRN Reason: Severe Pain (-02/20) Primary Care Physician: Antonio Rangel MD [Primary Care Provider] - Please Follow Up With: Jordan Fox MD - [phone] When: Plan to have a follow up approximately 7 days after surgery. Meaningful Use Info Meaningful Use Diagnoses (Choose all that apply): None applicable
[2017-07-14] MEDS: Tamsulosin HCl 0.4 MG Capsule PO (08:17)
[2017-07-14] MEDS: Pantoprazole Sodium 40 MG Tablet PO (08:17)
[2017-07-14] MEDS: Venlafaxine XR 37.5 MG Capsule PO (08:17)
== END 2017-07-14 09:15 | disposition home or self-care (01) | DRG 331 ==
LOC: ED 22:51 → SDC 23:12 → AC 23:15 → SDC 07-09 00:20 → MS3 07-09 00:20
PROVIDERS: Surgery; Admitting Provider Surgery; Emergency Provider Emergency Medicine; Family Provider Family Medicine; PCP Family Medicine; Visit Provider Surgery
PROC: 0DTN0ZZ Resection of Sigmoid Colon, Open Approach (ICD-10-PCS; principal; 2017-07-11 14:35)
DX: K56.2 Volvulus (principal); I35.0 Nonrheumatic aortic (valve) stenosis
CPT/HCPCS: 36415; 74019; 74177; 80048; 80053; 80076; 81001; 83690; 83735; 84100; 85025; 88307; 93005; 93306; 99283; J7030; Q9957; Q9967; A4216; C8929; J2405

== ENCOUNTER 2017-07-20 21:39 | Emergency (ER) | payer MEDICARE, SELFPAY ==
[2017-07-20 21:40] VITALS: BP 163/80; PULSE 109; RESP 16; TEMP 36.2; O2SAT 95; BMI 35.2
--- NOTE | 2017-07-20 22:14 | CT_ITS ---
STUDY: CT ABDOMEN AND PELVIS WITHOUT CONTRAST REASON FOR EXAM: Male, 71 years old. Right-sided abdominal pain. Postop bowel obstruction 10 days ago. RADIATION DOSAGE (If Supplied By Facility): CTDIvol = ( 21.39 ) mGy, DLP = ( 1090.34 ) mGycm TECHNIQUE: Transaxial images were obtained from the dome of the diaphragm to the symphysis pubis without oral contrast, and without intravenous contrast. Sagittal and coronal images were reconstructed. Individualized dose optimization techniques were used for this CT. COMPARISON: Prior abdomen and pelvic CT exam of July 08, 2017. FINDINGS: The visualized lung bases are unremarkable. The visualized portions of the heart are within normal limits. Normal liver. Normal gallbladder and extrahepatic biliary system. Normal spleen. Normal pancreas. Normal bilateral adrenal glands. Atrophic changes and focal areas of scarring in the right kidney. Multiple 1 mm nonobstructing stones of the right kidney without hydronephrosis or ureteral stones. The right ureter is herniated into a large fatty right inguinal hernia and then returns to the pelvis. Only the herniated portion of the ureter is dilated. Normal left kidney without hydronephrosis or stones normal course of the left ureter. Normal visualized stomach. Normal small intestine. Only a mild increase in colonic bowel gas in nondependent loops. Generally the colon is not distended. Unremarkable sigmoid anastomosis with mild postoperative changes of the pelvis without focal fluid collection or abscess. There is non-visualization of the appendix. Mild calcified plaque of the aorta. Normal inferior vena cava. Normal retroperitoneum. Nondistended urinary bladder. Mild prostate enlargement. Postoperative changes of the abdominal wall without a substantial hematoma or abscess. There are diffuse degenerative changes of the visualized lumbar spine. CT/Abdomen/Pelvis without Cont IMPRESSION: Mild nonspecific increase in colonic bowel gas in nondependent portions of the colon with moderate proximal stool. Much less colonic distention than on the prior examination. Unremarkable sigmoid anastomosis with mild generalized postoperative changes of the pelvis without evidence of bowel perforation, focal fluid collection or abscess. Mild postoperative changes of the anterior abdominal wall without a substantial hematoma or abscess. Atrophic changes and focal areas of cortical scarring in the right kidney with multiple 1 mm nonobstructing stones without hydronephrosis or ureteral stones. 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 The ureter returns and enters the bladder. Only the herniated portion of the ureter is dilated. This same finding was present on the prior examination. Normal left kidney without hydronephrosis or stones. Bilateral fatty inguinal hernias. Mild prostate enlargement. Electronically Signed: Natali Lema MD at 23:32 EST , Service support ,
--- NOTE | 2017-07-20 22:15 | ED.VISSUMM ---
- ER Visit Summary Date of Service: 07/20/17 Chief Complaint: Abdominal pain History of Present Illness: The patient is a 71 M postop date [address] Thomas, performed electively after diagnosed volvulus 4 days prior. Doing fine up until today. Sudden abdominal pain right lateral to umbilicus pain to the scrotum at 5 PM this evening. No urinary symptoms. Call her surgeon, was told to take a Percocet for treat took at 8 PM with minimal relief. Denies any increasing activities or lifting. No nausea or vomiting. No fevers. No drainage from incisions. Denies history of kidney stones. Pain is currently a 6. States had loose stools post surgery, started Metamucil yesterday after follow-up appointment. Physical Examination: General: Alert and oriented ?3, no acute distress HEENT: Normocephalic, atraumatic. Moist mucosa membranes Neck: supple, nontender. Cardiovascular: Regular rate and rhythm, no murmurs Respiratory: Normal breath sounds, symmetric, no distress Abdomen: Soft, nondistended, Slight tenderness lateral to the umbilicus on the right,no guarding or rebound. midline incision inferior to umbilicus with Steri-Strips clean, dry, intact. No erythema. Back: No CVA tenderness. Follow-up. Extremities: Nontender, no edema, pulses intact ?4 Neuro: no focal neurological deficits. Test Results: WBC 9.1. Hemoglobin 14.3. Creatinine 0.99. Lipase 82. Liver enzymes normal. UA negative. CT abdomen pelvis, postop changes, herniated right ureter with mild hydro-with bilateral inguinal fat hernias, stable from previous Emergency Department Course and Treatment: Patient presents with right lateral abdominal pain pain into his scrotum. Abdominal incision looks clean, dry, intact. Renal stone protocol for evaluation. Morphine helped his symptoms. Abdominal labs normal. Urine negative. CT per radiology report notes postop changes that are stable. He had a an elongated right ureter that is herniated with his fat inguinal hernias stable from previous CTs. I did do hernia evaluation, had no pain in the groin region. However symptoms right abdominal pain radiating to the scrotum concerns of possible referred pain from his ureters currently. Patient states this is known to his surgeon and urologist, Dr. Kendall. Discussed with patient currently this is possibly symptoms from this ureter. Currently does not have those symptoms. He will monitor. I did speak with Dr. Thomas, updated and he will follow-up next week in the office for reevaluation. He will continue his Percocet as needed. No NSAID use due to his history of gastric ulcers. Patient and spouse updated and agrees with plan. Treatment Plan: [] Disposition: Discharge Impression: 1. Abdominal pain 2. Postop partial colectomy 3. Right hydroureter 4. Bilateral inguinal hernia This note was generated with [employer] software. It may contain incorrect words, spelling, and punctuation that were not noted in review of the chart prior to signing ED Disposition - Plan for ED Patient: Disposition: Home or Assisted Living Chief Complaint: Abd Pain Diagnosis: Post-op pain, Hydroureter, right, Bilateral inguinal hernia Instructions: ED Post Op Pain, ED Hernia Inguinal Referrals: Antonio Rangel MD [Primary Care Provider] - Jordan Fox MD [STAFF PHYSICIAN] - 5-7 Days Additional Instructions: Stable bilateral fat-containing inguinal hernia with elongated right ureter in the hernia that mildly dilated, stable from previous. Follow-up with Dr. Thomas for reevaluation.
[2017-07-20] MEDS: 0.9% Normal Saline 1,000 ML 125 ML IV (22:31)
[2017-07-20 22:46] LABS: Bacteria 0 SEEN /hpf (None Seen); Mucous, Urine 0 SEEN /hpf (<or=2+); White Blood Cells 0 SEEN /hpf (0-5)
[2017-07-20 22:51] LABS: Color, Urine Yellow (Yellow); Glucose, Dipstick Normal (Normal); Ketone-Dipstick Negative (Negative); Leukocyte Esterase-Dipstick Negative /ul (Negative); Nitrite-Dipstick Negative (Negative); Occult Blood-Urine Negative /ul (Negative); Protein-Dipstick Negative (Negative); Specific Gravity, Urine 1.015 (1.002-1.030); Urine Bilirubin Dipstick Negative (Negative); Urine Clarity Clear (Clear); Urine Urobilinogen Normal (Normal)
[2017-07-20 22:52] LABS: Absolute Lymphocyte Count 0.45 X10^3/ul (0.83-4.51); Absolute Neutrophil Count 8.1 X10^3/uL (2.0-7.7); Basophil# 0.01 X10^3/uL; Basophil% 0.1 % (0-1); Differential Indicated SCAN CRITERIA MET; Eosinophil# 0.05 X10^3/uL; Eosinophils% 0.5 % (0-5); Hematocrit 42.5 % (40-54); Hemoglobin 14.3 g/dl (13.0-16.5); Lymphocyte # 0.45 X10^3/ul (4.0); Lymphocyte % 4.9 % (19-41); Mean Corp Hgb Conc 33.6 g/gl (32-36); Mean Corpuscular Hgb 29.8 pg (27.0-32.0); Mean Corpuscular Volume 88.5 fL (80-94); Mean Platelet Vol. 10.3 fl (6.2-12.0); Monocyte# 0.48 X10^3/uL; Monocyte% 5.3 % (0-10); Neutrophil # 8.09 X10^3/uL (2.7-7.7); POSITIVE COUNT NO; POSITIVE DIFFERENTIAL YES; POSITIVE MORPHOLOGY NO; Platelet Count 176 K/mm3 (150-450); RBC Distribution Width CV 13.8 % (11.6-14.6); RBC Distribution Width SD 44.7 fl (35.1-43.9); White Blood Count 9.1 K/mm3 (4.4-11.0)
[2017-07-20 22:57] LABS: Red Blood Cells-Urine 0-5 SEEN /hpf (0-5)
[2017-07-20 22:58] LABS: Squamous Epithelial Cells - UA 0-5 SEEN /hpf (0-5)
[2017-07-20 23:03] LABS: AST(SGOT) 16 U/L (15-37); Alanine Aminotransfer ALT/SGPT 33 U/L (16-61); Albumin, Serum 3.9 g/dL (3.2-5.0); Alkaline Phosphatase 75 U/L (45-117); Anion Gap 8 (5-15); BUN 15 mg/dL (7-18); Calcium,Total 8.7 mg/dL (8.5-10.1); Chloride 99 mmol/L (98-107); Creatinine, Serum 0.94 mg/dL (0.70-1.30); EST Glomerular Filtration Rate 85 mL/min (>60); Est Glom Filt Rate - Afr Amer 103 mL/min (>60); Estimated Creatinine Clearance 81.41 ml/min; Globulin 3.9 g/dL (2.2-4.2); Glucose 100 mg/dL (74-106); Lipase 82 U/L (73-393); Potassium 4.1 mmol/L (3.5-5.1); Protein, Total 7.8 g/dL (6.4-8.2); Sodium Level 137 mmol/L (136-145)
[2017-07-20 23:11] LABS: Differential Comment SCANNED
[2017-07-21 00:53] VITALS: PULSE 93; RESP 18; O2SAT 97
== END 2017-07-21 00:54 | disposition home or self-care (01) ==
PROVIDERS: Emergency Provider Emergency Medicine; Family Provider Family Medicine; PCP Family Medicine
DX: K40.20 Bilateral inguinal hernia, without obstruction or gangrene, not specified as recurrent (principal); N13.4 Hydroureter; R10.33 Periumbilical pain; Z90.49 Acquired absence of other specified parts of digestive tract; K21.9 Gastro-esophageal reflux disease without esophagitis; M17.9 Osteoarthritis of knee, unspecified; N40.0 Benign prostatic hyperplasia without lower urinary tract symptoms; Z79.1 Long term (current) use of non-steroidal anti-inflammatories (NSAID); Z79.899 Other long term (current) drug therapy
CPT/HCPCS: 74176; 80053; 81001; 83690; 85025; 96361; 96374; 99283; J7030

== ENCOUNTER 2018-03-29 08:15 | Outpatient (RCR) | payer MEDICARE, SELFPAY ==
[2018-03-15 10:27] VITALS: BP 134/71; PULSE 73; RESP 18; TEMP 36.3; BMI 36.6
--- NOTE | 2018-03-15 11:12 | PCM.WC.HP ---
(1) Peripheral vascular disease of lower extremity with ulceration Status: Acute Current Visit: Yes Code(s): I73.9 - Peripheral vascular disease, unspecified; L97.909 - Non-pressure chronic ulcer of unspecified part of unspecified lower leg with unspecified severity (2) Open wound Status: Acute Current Visit: Yes Code(s): T14.8XXA - Other injury of unspecified body region, initial encounter (3) Non-healing wound of lower extremity Status: Acute Current Visit: Yes Code(s): S81.809A - Unspecified open wound, unspecified lower leg, initial encounter History of Present Illness Chief Complaint: Follow-up left lower leg ulcer inner ankle area History of Wound: 72-year-old white male woke up since Sunday with a slit in his lower left leg inner ankle area by Sunday it was an open ulcer. Has had histories of these before has peripheral vascular disease had the right leg ablated but not the left. History of vascular studies done around [address] Jurado ablated the right leg. Past Medical History Past Medical History: Peripheral vascular disease Allergies/Adverse Reactions: Allergies amoxicillin [From Augmentin] Adverse Reaction (Verified 07/20/17 22:35) Abd cramps/diarrhea clavulanic acid [From Augmentin] Adverse Reaction (Verified 07/20/17 22:35) Abd cramps/diarrhea ibuprofen [From Motrin] Adverse Reaction (Verified 07/20/17 22:35) Other Home Medications: Ambulatory Orders Medication Instructions Recorded Calcium Citrate - Vit D Tablet 600 mg PO DAILY 07/08/17 Finasteride [Proscar] 5 mg PO QHS 07/08/17 L.acidoph,Paracasei, B.lactis 1 each PO DAILY 07/08/17 [Probiotic] Lorazepam [Ativan] 0.5 mg PO DAILY PRN PRN 07/08/17 Meloxicam [Mobic] 15 mg PO QODAY 07/08/17 Multivit-Min/FA/Lycopen/Lutein 1 tab PO DAILY 07/08/17 [Centrum Silver Men Tablet] Pantoprazole Sodium [Protonix] 40 mg PO QODAY 07/08/17 Tamsulosin HCl [Flomax] 0.4 mg PO DAILY 07/08/17 Oxycodone [Oxyir] 5 mg PO Q4H PRN PRN 7 Days #20 tab 07/14/17 Venlafaxine XR [Effexor Xr] 37.5 mg PO DAILY capsule 07/14/17 Smoking Status: Never smoker Review of Systems Constitutional: Denies: Chills, Fever Eyes: Denies: Blurred vision, Drainage, Pain HEENT: Denies: Difficulty Hearing, Difficulty Swallowing, Sore Throat, Visual Changes Cardiovascular: Denies: Chest Pain, Palpitations, Syncope Respiratory: Denies: Cough, Shortness of Breath Gastrointestinal: Denies: Abdominal Pain, Nausea, Vomiting Genitourinary: Denies: Dysuria, Frequency Musculoskeletal: Denies: Joint Pain, Muscle pain Skin: Denies: Jaundice, Rash Neurological: Denies: Balance problems, Change in Speech, Difficulty swallowing, Focal weakness Psychiatric: Denies: Anxiety, Depression Endocrine: Denies: Change in Body Habitus Hematologic/ Lymphatic: Denies: Adenopathy - Physical Exam Vital Signs Temp Pulse Resp BP 97.3 F L 73 18 134/71 H 03/15/18 10:27 03/15/18 10:27 03/15/18 10:27 03/15/18 10:27 General: Oriented x3, Cooperative, Well developed HEENT: Atraumatic, PERRLA Oral: Moist Mucosa Neck: Supple, No JVD Lungs: Clear to auscultation, Normal air movement Cardiovascular: Regular rate, Regular Rhythm Abdomen: Bowel Sounds Present, Soft, Non Tender, No Hepato-splenomegaly Extremities: No clubbing, No edema Wound Measurements and Assessment WC - Nurse 1 - General Ulcer Measurement Start: 03/15/18 10:26 Freq: Status: Active Protocol: Activity Type Activity Date Activity User E-Sign Co-Sign Detail Recorded Client Recorded Date Recorded By Document 03/15/18 10:27 AN [id number] 03/15/18 10:48 AN 03/15/18 10:27 Wound Center Nurse 1 [Ulcer Assessment] #1 LEFT LOWER LEG -Combined with other wound No -Current Size (cm) - Length 0.8 -Current Size (cm) - Width 0.5 -Current Size (cm) - Depth 0.1 -Total Square Cm 0.40 -Date of Last Picture (Recall this 03/15/18 field) -Photo Taken Yes -Epithelialization None Present -Tunneling No -Undermining/Tunneling No -Circular Undermining No -Classification - Thickness Full Thickness without Exposed Support Structure -Exudate Amt Small (1-33%) -Exudate Type Serosanguineous -Wound Margin Distinct, Outline Attached -Granulation Amt Large (67-100%) -Slough/Fibrin Yes -Necrosis Amt Small (1-33%) -Necrotic Tissue Type Adherent Slough -Structure Exposed Fat Layer Exposed -Texture (Aye-wound Skin Appearance) No Abnormality -Moisture (Aye-wound Skin Appearance No Abnormality ) -Color (Aye-wound Skin Appearance) Hemosiderin Staining -Temperature (Aye-wound Skin No Abnormality Appearance) (Pt Warm) -Tenderness on Palpation (Aye-wound Yes Skin Appearance) -Ulcer Cleansing Rinsed/ Irrigated with Saline -Foul Odor after Cleansing No -Anesthetic Used 4% Lidocaine Solution [Edema Assessment] -Right Calf (cm) 40 -Right Ankle (cm) 23 -Left Calf (cm) 39 -Left Ankle (cm) 23.5 WC - Nurse 2 - General Ulcer CM Notes Start: 03/15/18 10:26 Freq: Status: Active Protocol: Activity Type Activity Date Activity User E-Sign Co-Sign Detail Recorded Client Recorded Date Recorded By Document 03/15/18 11:05 MW [id number] 03/15/18 11:08 MW 03/15/18 11:05 Wound Center Nurse 2 [Procedure/Treatment] #1 LEFT LOWER LEG -Time 11:05 -Correct Patient Yes -Correct Side, Site, Position Yes -Correct Procedure Yes -Procedure Performed Yes -Type of Procedure Debridement -Clinical Debridement Subcutaneous -Post Debridement Size (cm) - Length 1.0 -Post Debridement Size (cm) - Width 1.0 -Post Debridement Size (cm) - Depth 0.1 -Total Square Cm 1.00 -Wound/Ulcer Outcome Not Healed -Ulcer Cleansing Rinsed/ Irrigated with Saline -Foul Odor after Cleansing No -Bioengineered Tissue No -Bleeding Controlled with Pressure -Treatment Response Procedure Tolerated Well [See Physician Procedure note for Specifics] Pain Scale: 0-10 Numeric [Pain] -Is Patient Pain Free? Yes Musculoskeletal: No Tenderness to Palpation of Joints or Extremities Lymphatic: No Cervical, Supraclavicular, or Inguinal Adenopathy Neurological: Cranial nerves II-XII grossly intact, Neuro grossly intact Psych/Mental Status: Normal Affect, Appropriate Debridement Note Post-Debridement Measurements/Treatment WC - Nurse 2 - General Ulcer CM Notes Start: 03/15/18 10:26 Freq: Status: Active Protocol: Activity Type Activity Date Activity User E-Sign Co-Sign Detail Recorded Client Recorded Date Recorded By Document 03/15/18 11:05 MW [id number] 03/15/18 11:08 MW 03/15/18 11:05 Wound Center Nurse 2 #1 LEFT LOWER LEG -Time 11:05 -Correct Patient Yes -Correct Side, Site, Position Yes -Correct Procedure Yes -Procedure Performed Yes -Type of Procedure Debridement -Clinical Debridement Subcutaneous -Post Debridement Size (cm) - Length 1.0 -Post Debridement Size (cm) - Width 1.0 -Post Debridement Size (cm) - Depth 0.1 -Total Square Cm 1.00 -Wound/Ulcer Outcome Not Healed -Ulcer Cleansing Rinsed/ Irrigated with Saline -Foul Odor after Cleansing No -Bioengineered Tissue No -Bleeding Controlled with Pressure -Treatment Response Procedure Tolerated Well Pain Scale: 0-10 Numeric Is Patient Pain Free? Yes Wound debrided: Left lower leg ulcer Type of Debridement: Excisional debridement Anesthesia Used: 5% Lidocaine Gel Depth: Down to and including healthy tissue, in the subcutaneous layer Percentage of wound debrided: 100 Instrument Used: 7mm curette Tissue Removed: Fibrin Severity: Limited To Skin Breakdown Amount of bleeding with debridement: Mild Bleeding Controlled with: Compression and gauze Patient tolerated procedure well Assessment/Plan Active Problems Peripheral vascular disease of lower extremity with ulceration (Acute) Open wound (Acute) Non-healing wound of lower extremity (Acute) Assessment: Peripheral vascular disease with ulcer. Open ulcer left lower leg ankle. Nonhealing ulcer left lower leg Plan: Wash leg with Hibiclens. Apply Aquacel silver moistened with Adaptic gauze and Emilie. Double layer Tubigrip. Follow-up one week
[2018-03-22 08:15] VITALS: BP 135/57; PULSE 83; RESP 16; TEMP 36.8; BMI 36.6
--- NOTE | 2018-03-22 08:30 | PCM.WC.PN ---
(1) Peripheral vascular disease of lower extremity with ulceration Status: Acute Current Visit: Yes Code(s): I73.9 - Peripheral vascular disease, unspecified; L97.909 - Non-pressure chronic ulcer of unspecified part of unspecified lower leg with unspecified severity (2) Open wound Status: Acute Current Visit: Yes Code(s): T14.8XXA - Other injury of unspecified body region, initial encounter (3) Non-healing wound of lower extremity Status: Acute Current Visit: Yes Code(s): S81.809A - Unspecified open wound, unspecified lower leg, initial encounter Type of Wound Chief Complaint: Follow-up left lower leg ulcer inner ankle area History of Wound: 72-year-old white male woke up since Sunday with a slit in his lower left leg inner ankle area by Sunday it was an open ulcer. Has had histories of these before has peripheral vascular disease had the right leg ablated but not the left. History of vascular studies done around [address] Jurado ablated the right leg. Progress of Wound: Today the ulcer is about the same size were then tried Promogran this time and see if we could close it up. Ulcer appears clean. - Physical Exam Vital Signs Temp Pulse Resp BP 98.2 F 83 16 135/57 H 03/22/18 08:15 03/22/18 08:15 03/22/18 08:15 03/22/18 08:15 General: Oriented x3, Cooperative, Well developed HEENT: Atraumatic, PERRLA Oral: Moist Mucosa Neck: Supple, No JVD Lungs: Clear to auscultation, Normal air movement Cardiovascular: Regular rate, Regular Rhythm Abdomen: Bowel Sounds Present, Soft, Non Tender, No Hepato-splenomegaly Extremities: No clubbing, No edema, - - Left lower leg inner calf ulcer Wound Measurements and Assessment WC - Nurse 1 - General Ulcer Measurement Start: 03/15/18 10:26 Freq: Status: Active Protocol: Activity Type Activity Date Activity User E-Sign Co-Sign Detail Recorded Client Recorded Date Recorded By Document 03/22/18 08:15 [id number] 03/22/18 08:21 03/22/18 08:15 Wound Center Nurse 1 [Ulcer Assessment] #2 LEFT LOWER LEG -Combined with other wound No -Current Size (cm) - Length 1 -Current Size (cm) - Width 0.8 -Current Size (cm) - Depth 0.1 -Total Square Cm 0.8 -Photo Taken No -Epithelialization None Present -Tunneling No -Undermining/Tunneling No -Circular Undermining No -Exudate Amt Medium (34-66%) -Exudate Type Serosanguineous -Wound Margin Distinct, Outline Attached -Granulation Quality Pale -Slough/Fibrin Yes -Necrosis Amt None Present (0 %) -Necrotic Tissue Type Adherent Slough -Structure Exposed None/Limited to Skin Breakdown -Texture (Aye-wound Skin Appearance) No Abnormality Assessed -Moisture (Aye-wound Skin Appearance No Abnormality ) Assessed -Color (Aye-wound Skin Appearance) Assessed Hemosiderin Staining -Temperature (Aye-wound Skin No Abnormality Appearance) (Pt Warm) -Tenderness on Palpation (Aye-wound No Skin Appearance) -Ulcer Cleansing Rinsed/ Irrigated with Saline -Foul Odor after Cleansing No -Anesthetic Used 4% Lidocaine Solution [Edema Assessment] -Lower Limb Edema Present No -Left Calf (cm) 38.5 -Left Ankle (cm) 23.7 WC - Nurse 2 - General Ulcer CM Notes Start: 03/15/18 10:26 Freq: Status: Active Protocol: Activity Type Activity Date Activity User E-Sign Co-Sign Detail Recorded Client Recorded Date Recorded By Document 03/22/18 08:27 MW [id number] 03/22/18 08:28 MW 03/22/18 08:27 Wound Center Nurse 2 [Procedure/Treatment] #2 LEFT LOWER LEG -Time 08:28 -Correct Patient Yes -Correct Side, Site, Position Yes -Correct Procedure Yes -Procedure Performed Yes -Type of Procedure Debridement -Clinical Debridement Subcutaneous -Post Debridement Size (cm) - Length 0.9 -Post Debridement Size (cm) - Width 0.9 -Post Debridement Size (cm) - Depth 0.2 -Total Square Cm 0.81 -Wound/Ulcer Outcome Not Healed -Ulcer Cleansing Rinsed/ Irrigated with Saline -Foul Odor after Cleansing No -Bioengineered Tissue No -Bleeding Controlled with Pressure -Treatment Response Procedure Tolerated Well [See Physician Procedure note for Specifics] Pain Scale: 0-10 Numeric [Pain] -Is Patient Pain Free? Yes Musculoskeletal: No Tenderness to Palpation of Joints or Extremities Lymphatic: No Cervical, Supraclavicular, or Inguinal Adenopathy Neurological: Cranial nerves II-XII grossly intact, Neuro grossly intact Psych/Mental Status: Normal Affect, Appropriate Debridement Note Post-Debridement Measurements/Treatment WC - Nurse 2 - General Ulcer CM Notes Start: 03/15/18 10:26 Freq: Status: Active Protocol: Activity Type Activity Date Activity User E-Sign Co-Sign Detail Recorded Client Recorded Date Recorded By Document 03/15/18 11:05 MW [id number] 03/15/18 11:08 MW Document 03/22/18 08:27 MW [id number] 03/22/18 08:28 MW 03/15/18 03/22/18 11:05 08:27 Wound Center Nurse 2 #2 LEFT LOWER LEG -Time 11:05 08:28 -Correct Patient Yes Yes -Correct Side, Site, Position Yes Yes -Correct Procedure Yes Yes -Procedure Performed Yes Yes -Type of Procedure Debridement Debridement -Clinical Debridement Subcutaneous Subcutaneous -Post Debridement Size (cm) - Length 1.0 0.9 -Post Debridement Size (cm) - Width 1.0 0.9 -Post Debridement Size (cm) - Depth 0.1 0.2 -Total Square Cm 1.00 0.81 -Wound/Ulcer Outcome Not Healed Not Healed -Ulcer Cleansing Rinsed/ Rinsed/ Irrigated with Irrigated with Saline Saline -Foul Odor after Cleansing No No -Bioengineered Tissue No No -Bleeding Controlled with Pressure Pressure -Treatment Response Procedure Procedure Tolerated Well Tolerated Well Pain Scale: 0-10 Numeric Is Patient Pain Free? Yes Yes Wound debrided: Peripheral vascular disease with ulcer left leg Type of Debridement: Excisional debridement Anesthesia Used: 5% Lidocaine Gel Depth: Down to and including healthy tissue, in the subcutaneous layer Percentage of wound debrided: 100 Instrument Used: 3mm curette Tissue Removed: Fibrin Severity: Limited To Skin Breakdown Amount of bleeding with debridement: Mild Bleeding Controlled with: Compression and gauze Patient tolerated procedure well Assessment/Plan Active Problems Peripheral vascular disease of lower extremity with ulceration (Acute) Open wound (Acute) Non-healing wound of lower extremity (Acute) Assessment: Peripheral vascular disease with ulcer. Open ulcer left lower leg ankle. Nonhealing ulcer left lower leg Plan: Wash leg with Hibiclens. Apply Promogran moistened with Adaptic gauze and Emilie every other day. Double layer Tubigrip. Follow-up one week
[2018-03-29 08:33] VITALS: BP 144/68; PULSE 83; RESP 18; TEMP 36.3; BMI 36.6
--- NOTE | 2018-03-29 10:36 | PCM.WC.PN ---
(1) Peripheral vascular disease of lower extremity with ulceration Status: Acute Current Visit: Yes Code(s): I73.9 - Peripheral vascular disease, unspecified; L97.909 - Non-pressure chronic ulcer of unspecified part of unspecified lower leg with unspecified severity (2) Open wound Status: Acute Current Visit: Yes Code(s): T14.8XXA - Other injury of unspecified body region, initial encounter (3) Non-healing wound of lower extremity Status: Acute Current Visit: Yes Code(s): S81.809A - Unspecified open wound, unspecified lower leg, initial encounter Type of Wound Chief Complaint: Follow-up left lower leg ulcer inner ankle area History of Wound: 72-year-old white male woke up since Sunday with a slit in his lower left leg inner ankle area by Sunday it was an open ulcer. Has had histories of these before has peripheral vascular disease had the right leg ablated but not the left. History of vascular studies done around [address] Jurado ablated the right leg. Progress of Wound: Today the ulcer is healed and patient will be discharged from the wound center a referral to Dr. Jones for further studies. - Physical Exam Vital Signs Temp Pulse Resp BP 97.3 F L 83 18 144/68 H 03/29/18 08:33 03/29/18 08:33 03/29/18 08:33 03/29/18 08:33 General: Oriented x3, Cooperative, Well developed HEENT: Atraumatic, PERRLA Oral: Moist Mucosa Neck: Supple, No JVD Lungs: Clear to auscultation, Normal air movement Cardiovascular: Regular rate, Regular Rhythm Abdomen: Bowel Sounds Present, Soft, Non Tender, No Hepato-splenomegaly Extremities: No clubbing, No edema Skin: Ulcer/ Wound - Left inner calf wound Wound Measurements and Assessment WC - Nurse 1 - General Ulcer Measurement Start: 03/15/18 10:26 Freq: Status: Active Protocol: Activity Type Activity Date Activity User E-Sign Co-Sign Detail Recorded Client Recorded Date Recorded By Document 03/29/18 08:33 DL [id number] 03/29/18 08:40 DL 03/29/18 08:33 Wound Center Nurse 1 [Ulcer Assessment] #2 LEFT LOWER LEG -Current Size (cm) - Length 0.6 -Current Size (cm) - Width 0.6 -Current Size (cm) - Depth 0.1 -Total Square Cm 0.36 -Photo Taken No -Exudate Amt None Present (0 %) -Wound Margin Distinct, Outline Attached -Granulation Amt None Present (0 %) -Necrosis Amt Large (67-100%) -Necrotic Tissue Type Adherent Slough -Structure Exposed N/A -Texture (Aye-wound Skin Appearance) Scarring -Moisture (Aye-wound Skin Appearance No Abnormality ) -Color (Aye-wound Skin Appearance) Rubor -Temperature (Aye-wound Skin No Abnormality Appearance) (Pt Warm) -Ulcer Cleansing Rinsed/ Irrigated with Saline -Foul Odor after Cleansing No -Anesthetic Used 4% Lidocaine Solution [Edema Assessment] -Left Calf (cm) 37 -Left Ankle (cm) 22 WC - Nurse 2 - General Ulcer CM Notes Start: 03/15/18 10:26 Freq: Status: Active Protocol: Activity Type Activity Date Activity User E-Sign Co-Sign Detail Recorded Client Recorded Date Recorded By Document 03/29/18 08:46 MW [id number] 03/29/18 08:47 MW 03/29/18 08:46 Wound Center Nurse 2 [Procedure/Treatment] #2 LEFT LOWER LEG -Time 08:46 -Correct Patient Yes -Correct Side, Site, Position Yes -Correct Procedure Yes -Procedure Performed No -Post Debridement Size (cm) - Length 0 -Post Debridement Size (cm) - Width 0 -Post Debridement Size (cm) - Depth 0 -Total Square Cm 0 -Wound/Ulcer Outcome Healed- Epithelialized -Ulcer Cleansing Not Cleansed -Foul Odor after Cleansing No -Bleeding Controlled with NA -Treatment Response Procedure Tolerated Well [See Physician Procedure note for Specifics] Pain Scale: 0-10 Numeric [Pain] -Is Patient Pain Free? Yes Musculoskeletal: No Tenderness to Palpation of Joints or Extremities Lymphatic: No Cervical, Supraclavicular, or Inguinal Adenopathy Neurological: Cranial nerves II-XII grossly intact, Neuro grossly intact Psych/Mental Status: Normal Affect, Appropriate Debridement Note Post-Debridement Measurements/Treatment - Nurse 2 - General Ulcer CM Notes Start: 03/15/18 10:26 Freq: Status: Active Protocol: Activity Type Activity Date Activity User E-Sign Co-Sign Detail Recorded Client Recorded Date Recorded By Document 03/15/18 11:05 MW [id number] 03/15/18 11:08 MW Document 03/22/18 08:27 MW [id number] 03/22/18 08:28 MW Document 03/29/18 08:46 MW [id number] 03/29/18 08:47 MW 03/15/18 03/22/18 03/29/18 11:05 08:27 08:46 Wound Center Nurse 2 #2 LEFT LOWER LEG -Time 11:05 08:28 08:46 -Correct Patient Yes Yes Yes -Correct Side, Site, Position Yes Yes Yes -Correct Procedure Yes Yes Yes -Procedure Performed Yes Yes No -Type of Procedure Debridement Debridement -Clinical Debridement Subcutaneous Subcutaneous -Post Debridement Size (cm) - Length 1.0 0.9 0 -Post Debridement Size (cm) - Width 1.0 0.9 0 -Post Debridement Size (cm) - Depth 0.1 0.2 0 -Total Square Cm 1.00 0.81 0 -Wound/Ulcer Outcome Not Healed Not Healed Healed- Epithelialized -Ulcer Cleansing Rinsed/ Rinsed/ Not Cleansed Irrigated with Irrigated with Saline Saline -Foul Odor after Cleansing No No No -Bioengineered Tissue No No -Bleeding Controlled with Pressure Pressure NA -Treatment Response Procedure Procedure Procedure Tolerated Well Tolerated Well Tolerated Well Pain Scale: 0-10 Numeric Is Patient Pain Free? Yes Yes Yes No debridement was completed today Assessment/Plan Active Problems Peripheral vascular disease of lower extremity with ulceration (Acute) Open wound (Acute) Non-healing wound of lower extremity (Acute) Assessment: Peripheral vascular disease with ulcer. Open ulcer left lower leg ankle resolved. Nonhealing ulcer left lower leg resolved Plan: Discharge from the wound center. Continue wearing compression Tubigrip's till seen by Dr. Jones. Referral made. Follow-up as needed
--- NOTE | 2018-03-29 10:39 | PN.PCM_ITS ---
(1) Peripheral vascular disease of lower extremity with ulceration Status: Acute Current Visit: Yes Code(s): I73.9 - Peripheral vascular disease, unspecified; L97.909 - Non-pressure chronic ulcer of unspecified part of unspecified lower leg with unspecified severity (2) Open wound Status: Acute Current Visit: Yes Code(s): T14.8XXA - Other injury of unspecified body region, initial encounter (3) Non-healing wound of lower extremity Status: Acute Current Visit: Yes Code(s): S81.809A - Unspecified open wound, unspecified lower leg, initial encounter Type of Wound Chief Complaint: Follow-up left lower leg ulcer inner ankle area History of Wound: 72-year-old white male woke up since Sunday with a slit in his lower left leg inner ankle area by Sunday it was an open ulcer. Has had histories of these before has peripheral vascular disease had the right leg ablated but not the left. History of vascular studies done around [address] Jurado ablated the right leg. Progress of Wound: Today the ulcer is healed and patient will be discharged from the wound center a referral to Dr. Jones for further studies. - Physical Exam Vital Signs Temp Pulse Resp BP 97.3 F L 83 18 144/68 H 03/29/18 08:33 03/29/18 08:33 03/29/18 08:33 03/29/18 08:33 General: Oriented x3, Cooperative, Well developed HEENT: Atraumatic, PERRLA Oral: Moist Mucosa Neck: Supple, No JVD Lungs: Clear to auscultation, Normal air movement Cardiovascular: Regular rate, Regular Rhythm Abdomen: Bowel Sounds Present, Soft, Non Tender, No Hepato-splenomegaly Extremities: No clubbing, No edema Skin: Ulcer/ Wound - Left inner calf wound Wound Measurements and Assessment WC - Nurse 1 - General Ulcer Measurement Start: 03/15/18 10:26 Freq: Status: Active Protocol: Activity Type Activity Date Activity User E-Sign Co-Sign Detail Recorded Client Recorded Date Recorded By Document 03/29/18 08:33 DL [id number] 03/29/18 08:40 DL 03/29/18 08:33 Wound Center Nurse 1 [Ulcer Assessment] #2 LEFT LOWER LEG -Current Size (cm) - Length 0.6 -Current Size (cm) - Width 0.6 -Current Size (cm) - Depth 0.1 -Total Square Cm 0.36 -Photo Taken No -Exudate Amt None Present (0 %) -Wound Margin Distinct, Outline Attached -Granulation Amt None Present (0 %) -Necrosis Amt Large (67-100%) -Necrotic Tissue Type Adherent Slough -Structure Exposed N/A -Texture (Aye-wound Skin Appearance) Scarring -Moisture (Aye-wound Skin Appearance No Abnormality ) -Color (Aye-wound Skin Appearance) Rubor -Temperature (Aye-wound Skin No Abnormality Appearance) (Pt Warm) -Ulcer Cleansing Rinsed/ Irrigated with Saline -Foul Odor after Cleansing No -Anesthetic Used 4% Lidocaine Solution [Edema Assessment] -Left Calf (cm) 37 -Left Ankle (cm) 22 WC - Nurse 2 - General Ulcer CM Notes Start: 03/15/18 10:26 Freq: Status: Active Protocol: Activity Type Activity Date Activity User E-Sign Co-Sign Detail Recorded Client Recorded Date Recorded By Document 03/29/18 08:46 MW [id number] 03/29/18 08:47 MW 03/29/18 08:46 Wound Center Nurse 2 [Procedure/Treatment] #2 LEFT LOWER LEG -Time 08:46 -Correct Patient Yes -Correct Side, Site, Position Yes -Correct Procedure Yes -Procedure Performed No -Post Debridement Size (cm) - Length 0 -Post Debridement Size (cm) - Width 0 -Post Debridement Size (cm) - Depth 0 -Total Square Cm 0 -Wound/Ulcer Outcome Healed- Epithelialized -Ulcer Cleansing Not Cleansed -Foul Odor after Cleansing No -Bleeding Controlled with NA -Treatment Response Procedure Tolerated Well [See Physician Procedure note for Specifics] Pain Scale: 0-10 Numeric [Pain] -Is Patient Pain Free? Yes Musculoskeletal: No Tenderness to Palpation of Joints or Extremities Lymphatic: No Cervical, Supraclavicular, or Inguinal Adenopathy Neurological: Cranial nerves II-XII grossly intact, Neuro grossly intact Psych/Mental Status: Normal Affect, Appropriate Debridement Note Post-Debridement Measurements/Treatment - Nurse 2 - General Ulcer CM Notes Start: 03/15/18 10:26 Freq: Status: Active Protocol: Activity Type Activity Date Activity User E-Sign Co-Sign Detail Recorded Client Recorded Date Recorded By Document 03/15/18 11:05 MW [id number] 03/15/18 11:08 MW Document 03/22/18 08:27 MW [id number] 03/22/18 08:28 MW Document 03/29/18 08:46 MW [id number] 03/29/18 08:47 MW 03/15/18 03/22/18 03/29/18 11:05 08:27 08:46 Wound Center Nurse 2 #2 LEFT LOWER LEG -Time 11:05 08:28 08:46 -Correct Patient Yes Yes Yes -Correct Side, Site, Position Yes Yes Yes -Correct Procedure Yes Yes Yes -Procedure Performed Yes Yes No -Type of Procedure Debridement Debridement -Clinical Debridement Subcutaneous Subcutaneous -Post Debridement Size (cm) - Length 1.0 0.9 0 -Post Debridement Size (cm) - Width 1.0 0.9 0 -Post Debridement Size (cm) - Depth 0.1 0.2 0 -Total Square Cm 1.00 0.81 0 -Wound/Ulcer Outcome Not Healed Not Healed Healed- Epithelialized -Ulcer Cleansing Rinsed/ Rinsed/ Not Cleansed Irrigated with Irrigated with Saline Saline -Foul Odor after Cleansing No No No -Bioengineered Tissue No No -Bleeding Controlled with Pressure Pressure NA -Treatment Response Procedure Procedure Procedure Tolerated Well Tolerated Well Tolerated Well Pain Scale: 0-10 Numeric Is Patient Pain Free? Yes Yes Yes No debridement was completed today Assessment/Plan Active Problems Peripheral vascular disease of lower extremity with ulceration (Acute) Open wound (Acute) Non-healing wound of lower extremity (Acute) Assessment: Peripheral vascular disease with ulcer. Open ulcer left lower leg ankle resolved. Nonhealing ulcer left lower leg resolved Plan: Discharge from the wound center. Continue wearing compression Tubigrip's till seen by Dr. Jones. Referral made. Follow-up as needed
== END 2018-04-12 23:59 ==
LOC: WC 08:15
PROVIDERS: Family Provider Family Medicine; PCP Family Medicine; Visit Provider Nurse Practitioner
DX: I73.9 Peripheral vascular disease, unspecified (principal); L97.321 Non-pressure chronic ulcer of left ankle limited to breakdown of skin
CPT/HCPCS: 11042; 99213; G0463

== ENCOUNTER 2018-05-13 12:00 | Outpatient (RCR) | payer MEDICARE, SELFPAY ==
[2018-04-13 00:19] VITALS: BP 144/68; PULSE 83; RESP 18; TEMP 36.3
[2018-04-19 09:05] VITALS: BP 139/71; PULSE 78; RESP 20; TEMP 35.9; BMI 36.6
--- NOTE | 2018-04-19 09:36 | PN.PCM_ITS ---
(1) Non-healing wound of lower extremity Status: Acute Current Visit: Yes Code(s): S81.809A - Unspecified open wound, unspecified lower leg, initial encounter (2) Open wound Status: Acute Current Visit: Yes Code(s): T14.8XXA - Other injury of unspecified body region, initial encounter (3) Peripheral vascular disease of lower extremity with ulceration Status: Chronic Current Visit: Yes Code(s): I73.9 - Peripheral vascular disease, unspecified; L97.909 - Non-pressure chronic ulcer of unspecified part of unspecified lower leg with unspecified severity Type of Wound Chief Complaint: Follow-up left lower leg ulcer inner ankle area History of Wound: 72-year-old white male woke up since Sunday with a slit in his lower left leg inner ankle area by Sunday it was an open ulcer. Has had histories of these before has peripheral vascular disease had the right leg ablated but not the left. History of vascular studies done around [address] Jurado ablated the right leg. Progress of Wound: The ulcer had been discharged and has now reopened patient has not made the appointment for his ablation of this left lower leg. He is disappointed with reopening he has slough in the base no redness no swelling denies pain. - Physical Exam Vital Signs Temp Pulse Resp BP 96.6 F L 78 20 H 139/71 H 04/19/18 09:05 04/19/18 09:05 04/19/18 09:05 04/19/18 09:05 General: Oriented x3, Cooperative, Well developed HEENT: Atraumatic, PERRLA Oral: Moist Mucosa Neck: Supple, No JVD Lungs: Clear to auscultation, Normal air movement Cardiovascular: Regular rate, Regular Rhythm Abdomen: Bowel Sounds Present, Soft, Non Tender, No Hepato-splenomegaly Extremities: No clubbing, No edema, - - Lower leg peripheral vascular ulcer Wound Measurements and Assessment WC - Nurse 1 - General Ulcer Measurement Start: 04/19/18 09:04 Freq: Status: Active Protocol: Activity Type Activity Date Activity User E-Sign Co-Sign Detail Recorded Client Recorded Date Recorded By Document 04/19/18 09:05 RB [id number] 04/19/18 09:15 RB 04/19/18 09:05 Wound Center Nurse 1 [Ulcer Assessment] #2 LEFT LOWER LEG -Combined with other wound No -Current Size (cm) - Length 0.7 -Current Size (cm) - Width 0.7 -Current Size (cm) - Depth 0.2 -Total Square Cm 0.49 -Photo Taken Yes -Tunneling No -Undermining/Tunneling No -Circular Undermining No -Exudate Amt Small (1-33%) -Exudate Type Serosanguineous -Wound Margin Distinct, Outline Attached -Granulation Amt Medium (34-66%) -Granulation Quality [place] -Slough/Fibrin Yes -Necrosis Amt Small (1-33%) -Necrotic Tissue Type Adherent Slough -Structure Exposed N/A -Texture (Aye-wound Skin Appearance) Assessed -Moisture (Aye-wound Skin Appearance Assessed ) -Color (Aye-wound Skin Appearance) Assessed Hemosiderin Staining -Temperature (Aye-wound Skin No Abnormality Appearance) (Pt Warm) -Tenderness on Palpation (Aye-wound No Skin Appearance) -Ulcer Cleansing Rinsed/ Irrigated with Saline -Foul Odor after Cleansing No -Anesthetic Used 5% Lidocaine Gel [Edema Assessment] -Lower Limb Edema Present Yes -Left Calf (cm) 39.2 -Left Ankle (cm) 23.5 WC - Nurse 2 - General Ulcer CM Notes Start: 04/19/18 09:04 Freq: Status: Active Protocol: Activity Type Activity Date Activity User E-Sign Co-Sign Detail Recorded Client Recorded Date Recorded By Document 04/19/18 09:24 MW [id number] 04/19/18 09:26 MW 04/19/18 09:24 Wound Center Nurse 2 [Procedure/Treatment] #2 LEFT LOWER LEG -Time 09:24 -Correct Patient Yes -Correct Side, Site, Position Yes -Correct Procedure Yes -Procedure Performed Yes -Type of Procedure Debridement -Clinical Debridement Subcutaneous -Post Debridement Size (cm) - Length 0.6 -Post Debridement Size (cm) - Width 0.6 -Post Debridement Size (cm) - Depth 0.2 -Total Square Cm 0.36 -Wound/Ulcer Outcome Not Healed -Ulcer Cleansing Rinsed/ Irrigated with Saline -Foul Odor after Cleansing No -Bioengineered Tissue No -Bleeding Controlled with Pressure -Offloading No -Treatment Response Procedure Tolerated Well [See Physician Procedure note for Specifics] Pain Scale: 0-10 Numeric [Pain] -Is Patient Pain Free? Yes Musculoskeletal: No Tenderness to Palpation of Joints or Extremities Lymphatic: No Cervical, Supraclavicular, or Inguinal Adenopathy Neurological: Cranial nerves II-XII grossly intact, Neuro grossly intact Psych/Mental Status: Normal Affect, Appropriate Debridement Note Post-Debridement Measurements/Treatment WC - Nurse 2 - General Ulcer CM Notes Start: 04/19/18 09:04 Freq: Status: Active Protocol: Activity Type Activity Date Activity User E-Sign Co-Sign Detail Recorded Client Recorded Date Recorded By Document 04/19/18 09:24 MW [id number] 04/19/18 09:26 MW 04/19/18 09:24 Wound Center Nurse 2 #2 LEFT LOWER LEG -Time 09:24 -Correct Patient Yes -Correct Side, Site, Position Yes -Correct Procedure Yes -Procedure Performed Yes -Type of Procedure Debridement -Clinical Debridement Subcutaneous -Post Debridement Size (cm) - Length 0.6 -Post Debridement Size (cm) - Width 0.6 -Post Debridement Size (cm) - Depth 0.2 -Total Square Cm 0.36 -Wound/Ulcer Outcome Not Healed -Ulcer Cleansing Rinsed/ Irrigated with Saline -Foul Odor after Cleansing No -Bioengineered Tissue No -Bleeding Controlled with Pressure -Offloading No -Treatment Response Procedure Tolerated Well Pain Scale: 0-10 Numeric Is Patient Pain Free? Yes Wound debrided: Lower leg ulcer Laterality: Left Type of Debridement: Excisional debridement Anesthesia Used: 5% Lidocaine Gel Depth: Down to and including healthy tissue, in the subcutaneous layer Percentage of wound debrided: 100 Instrument Used: 3mm curette Tissue Removed: Slough Severity: Limited To Skin Breakdown Amount of bleeding with debridement: None Bleeding Controlled with: Compression and gauze Patient tolerated procedure well Assessment/Plan Active Problems Peripheral vascular disease of lower extremity with ulceration (Chronic) Open wound (Acute) Non-healing wound of lower extremity (Acute) Assessment: Peripheral vascular disease with ulcer. Open ulcer left lower leg ankle. Nonhealing ulcer left lower leg Plan: Wash leg with Hibiclens. Apply [place]al[place] to the wound base moistened Adaptic over top every other day. Cover with dressing and double layer Tubigrip. Follow-up in 1 week
[2018-04-29 14:03] VITALS: BP 153/85; PULSE 89; RESP 18; TEMP 36.6; BMI 36.6
--- NOTE | 2018-04-29 15:24 | PCM.WC.HP ---
(1) Chronic venous insufficiency Status: Chronic Current Visit: Yes Code(s): I87.2 - Venous insufficiency (chronic) (peripheral) (2) Venous hypertension, chronic, with ulcer and inflammation Status: Chronic Current Visit: Yes Qualifiers: Laterality: left Qualified Code(s): I87.332 - Chronic venous hypertension (idiopathic) with ulcer and inflammation of left lower extremity; L97.929 - Non-pressure chronic ulcer of unspecified part of left lower leg with unspecified severity Code(s): I87.339 - Chronic venous hypertension (idiopathic) with ulcer and inflammation of unspecified lower extremity; L97.909 - Non-pressure chronic ulcer of unspecified part of unspecified lower leg with unspecified severity (3) Venous stasis ulcer Status: Chronic Current Visit: Yes Qualifiers: Venous stasis ulcer site: calf Varicose vein presence: with varicose veins Laterality: left Non-pressure ulcer stage: with fat layer exposed Qualified Code(s): I83.022 - Varicose veins of left lower extremity with ulcer of calf; L97.222 - Non-pressure chronic ulcer of left calf with fat layer exposed Code(s): I83.009 - Varicose veins of unspecified lower extremity with ulcer of unspecified site; L97.909 - Non-pressure chronic ulcer of unspecified part of unspecified lower leg with unspecified severity (4) Hyperpigmentation Status: Chronic Current Visit: Yes Code(s): L81.9 - Disorder of pigmentation, unspecified (5) Lipodermatosclerosis Status: Chronic Current Visit: Yes Code(s): I83.10 - Varicose veins of unspecified lower extremity with inflammation (6) Obesity (BMI 30-39.9) Status: Chronic Current Visit: Yes Code(s): E66.9 - Obesity, unspecified History of Present Illness Chief Complaint: Chronic venous insufficiency, venous hypertension with inflammation and ulceration, venous stasis ulceration?left medial calf History of Wound: This is a 72-year-old male with an ulceration of the left medial calf, which has been present since February 2018. Patient has a history of chronic venous insufficiency, venous hypertension with inflammation and ulceration, and venous stasis ulceration. He has been treated at the [facility] since February 2018, relative to the ulceration on the left medial calf. It temporarily healed, but recurred within a matter of days. He has previously undergone endothermal ablation of incompetent superficial veins in the right lower extremity, performed in 2012. A venous study performed in April 2013 reveals successful ablation of the right great saphenous vein anterior accessory saphenous veins. A noninvasive lower extremity arterial study performed in June 2012 reveals triphasic waveforms at all levels, and normal ankle-brachial indices bilaterally. There was no evidence of significant arterial occlusive disease. In recent months, the patient has been using Shalonda topically to the ulceration on the left medial calf, and had undergone serial debridements. He owns graduated compression stockings of 20-30 mmHg compression, which he typically wears on a daily basis. The patient denies a history of thrombophlebitis. 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 The patient has a known history of chronic venous insufficiency. Surgical History: - - The patient has previously undergone endovenous laser ablation of incompetent superficial veins in the right lower extremity. He also has undergone several anorectal surgical procedures. A sigmoid colon resection was performed in June 2017. Allergies/Adverse Reactions: Allergies amoxicillin [From Augmentin] Adverse Reaction (Verified 07/20/17 22:35) Abd cramps/diarrhea clavulanic acid [From Augmentin] Adverse Reaction (Verified 07/20/17 22:35) Abd cramps/diarrhea ibuprofen [From Motrin] Adverse Reaction (Verified 07/20/17 22:35) Other Home Medications: Ambulatory Orders Medication Instructions Recorded Calcium Citrate - Vit D Tablet 600 mg PO DAILY 07/08/17 Finasteride [Proscar] 5 mg PO QHS 07/08/17 L.acidoph,Paracasei, B.lactis 1 each PO DAILY 07/08/17 [Probiotic] Lorazepam [Ativan] 0.5 mg PO DAILY PRN PRN 07/08/17 Meloxicam [Mobic] 15 mg PO QODAY 07/08/17 Multivit-Min/FA/Lycopen/Lutein 1 tab PO DAILY 07/08/17 [Centrum Silver Men Tablet] Pantoprazole Sodium [Protonix] 40 mg PO QODAY 07/08/17 Tamsulosin HCl [Flomax] 0.4 mg PO DAILY 07/08/17 Oxycodone [Oxyir] 5 mg PO Q4H PRN PRN 7 Days #20 tab 07/14/17 Venlafaxine XR [Effexor Xr] 37.5 mg PO DAILY capsule 07/14/17 - Family History Paternal - - The patient's father at the age of 80 with a history of coronary artery disease. Maternal - - The patient's mother at the age of 90 with a history of renal insufficiency. Smoking Status: Never smoker Tobacco Use: Non-smoker Alcohol: Occasional - The patient consumes 1 beer daily. Drugs: None Review of Systems Constitutional: Denies: Chills, Fever, Weight Change Eyes: Denies: Pain, Vision Change HEENT: Denies: Difficulty Hearing, Difficulty Swallowing, Sinus Congestion Cardiovascular: Denies: Chest Pain, Palpitations Respiratory: Denies: Cough, Shortness of Breath Gastrointestinal: Denies: Diarrhea, Nausea, Vomiting Genitourinary: Denies: Dysuria, Hematuria Endocrine: Denies: Heat/ Cold Intolerance, Polydipsia, Polyuria Hematologic/ Lymphatic: Denies: Easy Bruising, Easy Bleeding - Physical Exam Vital Signs Temp Pulse Resp BP 97.8 F 89 18 153/85 H 04/29/18 14:03 04/29/18 14:03 04/29/18 14:03 04/29/18 14:03 General: Alert, Oriented x3, Cooperative, No apparent distress, Well developed, Well nourished HEENT: Atraumatic, PERRLA, EOMI, Normocephalic Oral: Moist Mucosa Neck: No JVD Lungs: Normal air movement Abdomen: Non-Distended Extremities: No clubbing, No cyanosis, No Calf Tenderness, - - Minimal swelling and edema is noted in the left lower extremity. Hyperpigmentation and lipodermatosclerosis are noted bilaterally in the medial calves, more pronounced in the right lower extremity. There is a small ulceration on the left medial calf. Dimensions are documented elsewhere. There is no sign of infection or cellulitis. The base of the ulceration demonstrates a moderate amount of bioburden and nonviable tissue. Skin: No rashes Wound Measurements and Assessment WC - Nurse 1 - General Ulcer Measurement Start: 04/19/18 09:04 Freq: Status: Active Protocol: Activity Type Activity Date Activity User E-Sign Co-Sign Detail Recorded Client Recorded Date Recorded By Document 04/29/18 14:03 DL [id number] 04/29/18 14:08 DL 04/29/18 14:03 Wound Center Nurse 1 [Ulcer Assessment] #2 LEFT LOWER LEG -Current Size (cm) - Length 0.6 -Current Size (cm) - Width 0.5 -Current Size (cm) - Depth 0.1 -Total Square Cm 0.30 -Photo Taken No -Exudate Amt Small (1-33%) -Exudate Type Serosanguineous -Wound Margin Distinct, Outline Attached -Granulation Amt None Present (0 %) -Necrosis Amt Large (67-100%) -Necrotic Tissue Type Adherent Slough -Structure Exposed N/A -Texture (Aye-wound Skin Appearance) Localized Edema Scarring -Moisture (Aye-wound Skin Appearance No Abnormality ) -Color (Aye-wound Skin Appearance) Hemosiderin Staining Rubor -Temperature (Aye-wound Skin No Abnormality Appearance) (Pt Warm) -Tenderness on Palpation (Aye-wound No Skin Appearance) -Ulcer Cleansing Rinsed/ Irrigated with Saline -Anesthetic Used 4% Lidocaine Solution [Edema Assessment] -Left Calf (cm) 36.6 -Left Ankle (cm) 22.2 WC - Nurse 2 - General Ulcer CM Notes Start: 04/19/18 09:04 Freq: Status: Active Protocol: Activity Type Activity Date Activity User E-Sign Co-Sign Detail Recorded Client Recorded Date Recorded By Document 04/29/18 15:03 JS [id number] 04/29/18 15:16 JS 04/29/18 15:03 Wound Center Nurse 2 [Procedure/Treatment] #2 LEFT LOWER LEG -Time 15:04 -Correct Patient Yes -Correct Side, Site, Position Yes -Correct Procedure Yes -Procedure Performed Yes -Type of Procedure Debridement -Clinical Debridement Subcutaneous -Post Debridement Size (cm) - Length 0.7 -Post Debridement Size (cm) - Width 0.5 -Post Debridement Size (cm) - Depth 0.3 -Total Square Cm 0.35 -Wound/Ulcer Outcome Not Healed -Ulcer Cleansing Rinsed/ Irrigated with Saline -Foul Odor after Cleansing No -Bioengineered Tissue No -Injectable Lidocaine (%) 4 -Injectable Lidocaine w/ Epi (%) 5 -Offloading No -Treatment Response Procedure Tolerated Well [See Physician Procedure note for Specifics] Pain Scale: 0-10 Numeric [Pain] -Is Patient Pain Free? Yes Pain Scale: Adult NonVerbal [Pain] -Is Patient Pain Free? Yes Musculoskeletal: No Muscle Wasting Neurological: Cranial nerves II-XII grossly intact, Neuro grossly intact Psych/Mental Status: Normal Affect, Appropriate, Alert and oriented to time, place, person, mood and affect Debridement Note Post-Debridement Measurements/Treatment WC - Nurse 2 - General Ulcer CM Notes Start: 04/19/18 09:04 Freq: Status: Active Protocol: Activity Type Activity Date Activity User E-Sign Co-Sign Detail Recorded Client Recorded Date Recorded By Document 04/19/18 09:24 MW [id number] 04/19/18 09:26 MW Document 04/29/18 15:03 JS [id number] 04/29/18 15:16 JS 04/19/18 04/29/18 09:24 15:03 Wound Center Nurse 2 #2 LEFT LOWER LEG -Time 09:24 15:04 -Correct Patient Yes Yes -Correct Side, Site, Position Yes Yes -Correct Procedure Yes Yes -Procedure Performed Yes Yes -Type of Procedure Debridement Debridement -Clinical Debridement Subcutaneous Subcutaneous -Post Debridement Size (cm) - Length 0.6 0.7 -Post Debridement Size (cm) - Width 0.6 0.5 -Post Debridement Size (cm) - Depth 0.2 0.3 -Total Square Cm 0.36 0.35 -Wound/Ulcer Outcome Not Healed Not Healed -Ulcer Cleansing Rinsed/ Rinsed/ Irrigated with Irrigated with Saline Saline -Foul Odor after Cleansing No No -Bioengineered Tissue No No -Injectable Lidocaine (%) 4 -Injectable Lidocaine w/ Epi (%) 5 -Bleeding Controlled with Pressure -Offloading No No -Treatment Response Procedure Procedure Tolerated Well Tolerated Well Pain Scale: 0-10 Numeric Is Patient Pain Free? Yes Yes Pain Scale: Adult NonVerbal Is Patient Pain Free? 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 He presents with an ulceration of the left medial calf, appearing to be related to his chronic venous disease. He is otherwise generally healthy. Plan: Conservative treatment measures are to be implemented. Patient is to continue sleeping on a flat mattress at night. He is to elevate his legs to heart level, or higher, even during daytime hours. Avoidance of vital standing and sitting has been recommended. The patient is to remain active. Activity has been encouraged. Weight loss has been advised. Compression is to be continued by means of graduated compression stockings of 20-30 mmHg compression, which the patient possesses. We are to implement the use of collagenase Santyl topically on a daily basis relative to the small ulceration on the left medial calf. The patient is to return in 2 weeks for reassessment. We are to obtain updated vascular studies, both a venous duplex examination of the lower extremities as well as ankle brachial indices bilaterally. We are to request recent laboratory studies from the [facility], which have been recently performed. The patient is non-smoker. Influenza vaccine was not administered today. Patient weighs 270 pounds. He stands 6 feet 0 inches in height. BMI is 36.6. This places him in a class II obesity category. Weight loss has been recommended, in collaboration with the patient's primary care physician has been advised.
--- NOTE | 2018-05-10 13:05 | VDLE_ITS ---
Reason For Study: ULCER RIGHT LEFT CFV is compressible, spontaneous, phasic, CFV is compressible, spontaneous, phasic, competent and demonstrates normal competent, and demonstrates normal augmentation. augmentation. FV is compressible, spontaneous, phasic, FV is compressible, spontaneous, phasic, competent and demonstrates normal competent and demonstrates normal augmentation. augmentation. POP V is compressible, spontaneous, phasic, POP V is compressible, spontaneous, phasic, competent and demonstrates normal competent and demonstrates normal augmentation. augmentation. T/P Trunk is compressible. T/P Trunk is compressible. PTV is compressible. PTV is compressible. RT PerV is compressible. LT PerV is compressible. Hx RT EVLA of GSV, SSV, and ASV. RT GSV at SFJ is compressible and INCOMPETENT Procedure for greater than .5 sec. Exam performed in department. RT GSV is copmpressible and INCOMPETENT above the knee for greater than .5 seconds and measures .4 x .4 cm. RT GSV below the knee is compressible and INCOMPETENT for greater than .5 seconds and measures .3 x .36 cm Left SSV is compressible and INCOMPETENT for greater than .5 seconds and measures .3 x .35 cm. Interpretation Summary Deep veins of the lower extremities are bilaterally patent and compressible segmentally. There is no evidence of deep vein thrombosis on either side. Valvular competence appears intact within the proximal deep venous systems bilaterally. The left greater saphenous vein appears patent and compressible segmentally. The left sapheno-femoral junction is incompetent . The left greater saphenous vein appears segmentally incompetent. The left small saphenous vein is patent and incompetent. The right greater saphenous vein, small saphenous vein, and accessory saphenous vein have been previously ablated. Ordering Physician: Sourav Jurado Referring Physician: Sourav Jurado Performed By: Anuradha Zhang, RDCS, RVT
--- NOTE | 2018-05-10 13:05 | ART_ITS ---
Reason For Study: PAD Procedure A bilateral lower extremity continuous wave Doppler with analog waveform analysis and ankle brachial indexes. Left Segmental Pressures Left brachial= 131mmHg. Left posterior tibial artery = 156mmHg. Left dorsalis pedis artery = 177mmHg. The left ankle waveforms are triphasic. Right Segmental Pressures Right brachial= 127mmHg. Right posterior tibial artery = 175mmHg. Right dorsalis pedis artery = 162mmHg. The right ankle waveforms are triphasic. Indices The right ankle brachial index by the dorsalis pedis is 1.35. The right ankle brachial index by the posterior tibial artery is 1.19. The left ankle brachial index by the dorsalis pedis is 1.24. The left ankle brachial index by the posterior tibial artery is 1.34. Interpretation Summary Triphasic waveforms are noted at ankle level bilaterally. Resting ankle-brachial indices appear bilaterally normal. There is no evidence of significant arterial occlusive disease. Ordering Physician: Sourav Jurado Referring Physician: Sourav Jurado Performed By: [facility]
[2018-05-13 12:05] VITALS: BP 164/86; PULSE 83; RESP 16; TEMP 37; BMI 36.6
--- NOTE | 2018-05-13 12:23 | PCM.WC.HP ---
(1) Chronic venous insufficiency Status: Chronic Current Visit: Yes Code(s): I87.2 - Venous insufficiency (chronic) (peripheral) (2) Venous hypertension, chronic, with ulcer and inflammation Status: Chronic Current Visit: Yes Qualifiers: Laterality: left Qualified Code(s): I87.332 - Chronic venous hypertension (idiopathic) with ulcer and inflammation of left lower extremity; L97.929 - Non-pressure chronic ulcer of unspecified part of left lower leg with unspecified severity Code(s): I87.339 - Chronic venous hypertension (idiopathic) with ulcer and inflammation of unspecified lower extremity; L97.909 - Non-pressure chronic ulcer of unspecified part of unspecified lower leg with unspecified severity (3) Venous stasis ulcer Status: Chronic Current Visit: Yes Qualifiers: Venous stasis ulcer site: calf Varicose vein presence: with varicose veins Laterality: left Non-pressure ulcer stage: with fat layer exposed Qualified Code(s): I83.022 - Varicose veins of left lower extremity with ulcer of calf; L97.222 - Non-pressure chronic ulcer of left calf with fat layer exposed Code(s): I83.009 - Varicose veins of unspecified lower extremity with ulcer of unspecified site; L97.909 - Non-pressure chronic ulcer of unspecified part of unspecified lower leg with unspecified severity (4) Hyperpigmentation Status: Chronic Current Visit: Yes Code(s): L81.9 - Disorder of pigmentation, unspecified (5) Lipodermatosclerosis Status: Chronic Current Visit: Yes Code(s): I83.10 - Varicose veins of unspecified lower extremity with inflammation (6) Obesity (BMI 30-39.9) Status: Chronic Current Visit: Yes Code(s): E66.9 - Obesity, unspecified History of Present Illness Chief Complaint: Chronic venous insufficiency, venous hypertension with inflammation and ulceration, venous stasis ulceration?left medial calf History of Wound: This is a 72-year-old male with an ulceration of the left medial calf, which has been present since February 2018. Patient has a history of chronic venous insufficiency, venous hypertension with inflammation and ulceration, and venous stasis ulceration. He has been treated at the [facility] since February 2018, relative to the ulceration on the left medial calf. It temporarily healed, but recurred within a matter of days. He has previously undergone endothermal ablation of incompetent superficial veins in the right lower extremity, performed in 2012. A venous study performed in April 2013 reveals successful ablation of the right great saphenous vein anterior accessory saphenous veins. A noninvasive lower extremity arterial study performed in June 2012 reveals triphasic waveforms at all levels, and normal ankle-brachial indices bilaterally. There was no evidence of significant arterial occlusive disease. In recent months, the patient has been using Shalonda topically to the ulceration on the left medial calf, and had undergone serial debridements. He owns graduated compression stockings of 20-30 mmHg compression, which he typically wears on a daily basis. The patient denies a history of thrombophlebitis. 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 He also has undergone several anorectal surgical procedures. A sigmoid colon resection was performed in June 2017. Allergies/Adverse Reactions: Allergies amoxicillin [From Augmentin] Adverse Reaction (Verified 07/20/17 22:35) Abd cramps/diarrhea clavulanic acid [From Augmentin] Adverse Reaction (Verified 07/20/17 22:35) Abd cramps/diarrhea ibuprofen [From Motrin] Adverse Reaction (Verified 07/20/17 22:35) Other Home Medications: Ambulatory Orders Medication Instructions Recorded Calcium Citrate - Vit D Tablet 600 mg PO DAILY 07/08/17 Finasteride [Proscar] 5 mg PO QHS 07/08/17 L.acidoph,Paracasei, B.lactis 1 each PO DAILY 07/08/17 [Probiotic] Lorazepam [Ativan] 0.5 mg PO DAILY PRN PRN 07/08/17 Meloxicam [Mobic] 15 mg PO QODAY 07/08/17 Multivit-Min/FA/Lycopen/Lutein 1 tab PO DAILY 07/08/17 [Centrum Silver Men Tablet] Pantoprazole Sodium [Protonix] 40 mg PO QODAY 07/08/17 Tamsulosin HCl [Flomax] 0.4 mg PO DAILY 07/08/17 Oxycodone [Oxyir] 5 mg PO Q4H PRN PRN 7 Days #20 tab 07/14/17 Venlafaxine XR [Effexor Xr] 37.5 mg PO DAILY capsule 07/14/17 - Family History Paternal - - The patient's father at the age of 80 with a history of coronary artery disease. Maternal - - The patient's mother at the age of 90 with a history of renal insufficiency. Smoking Status: Never smoker Tobacco Use: Non-smoker Alcohol: Occasional - The patient consumes 1 beer daily. Drugs: None Review of Systems Constitutional: Denies: Chills, Fever, Weight Change Eyes: Denies: Pain, Vision Change HEENT: Denies: Difficulty Hearing, Difficulty Swallowing, Sinus Congestion Cardiovascular: Denies: Chest Pain, Palpitations Respiratory: Denies: Cough, Shortness of Breath Gastrointestinal: Denies: Diarrhea, Nausea, Vomiting Genitourinary: Denies: Dysuria, Hematuria Endocrine: Denies: Heat/ Cold Intolerance, Polydipsia, Polyuria Hematologic/ Lymphatic: Denies: Easy Bruising, Easy Bleeding - Physical Exam Vital Signs Temp Pulse Resp BP 98.6 F 83 16 164/86 H 05/13/18 12:05 05/13/18 12:05 05/13/18 12:05 05/13/18 12:05 General: Alert, Oriented x3, Cooperative, No apparent distress, Well developed, Well nourished HEENT: Atraumatic, PERRLA, EOMI, Normocephalic Oral: Moist Mucosa Neck: No JVD Lungs: Normal air movement Abdomen: Non-Distended Extremities: No clubbing, No cyanosis, No edema, No Calf Tenderness, - - There is no significant swelling or edema in the left lower extremity. The ulceration on the left medial calf persists, but appears slightly smaller in size. Dimensions are documented elsewhere. The base of the ulceration demonstrates a moderate amount of bioburden. Ulcer margins are well beveled. There is no sign of infection or cellulitis. Chronic hyperpigmentation is noted in association with the ulcerated area. Skin: No rashes Wound Measurements and Assessment WC - Nurse 1 - General Ulcer Measurement Start: 04/19/18 09:04 Freq: Status: Active Protocol: Activity Type Activity Date Activity User E-Sign Co-Sign Detail Recorded Client Recorded Date Recorded By Document 05/13/18 12:05 CS [id number] 05/13/18 12:13 CS 05/13/18 12:05 Wound Center Nurse 1 [Ulcer Assessment] #2 LEFT LOWER LEG -Combined with other wound No -Current Size (cm) - Length 0.7 -Current Size (cm) - Width 0.7 -Current Size (cm) - Depth 0.2 -Total Square Cm 0.49 -Photo Taken No -Epithelialization None Present -Tunneling No -Undermining/Tunneling No -Circular Undermining No -Exudate Amt Medium (34-66%) -Exudate Type Serosanguineous -Wound Margin Distinct, Outline Attached -Granulation Amt None Present (0 %) -Granulation Quality N/A -Slough/Fibrin Yes -Necrosis Amt Large (67-100%) -Necrotic Tissue Type Adherent Slough -Texture (Aye-wound Skin Appearance) No Abnormality Assessed -Moisture (Aye-wound Skin Appearance No Abnormality ) Assessed -Color (Aye-wound Skin Appearance) Hemosiderin Staining -Temperature (Aye-wound Skin No Abnormality Appearance) (Pt Warm) -Tenderness on Palpation (Aye-wound No Skin Appearance) -Ulcer Cleansing Rinsed/ Irrigated with Saline -Foul Odor after Cleansing No -Anesthetic Used 4% Lidocaine Solution [Edema Assessment] -Lower Limb Edema Present No -Left Calf (cm) 40 -Left Ankle (cm) 23.6 Musculoskeletal: No Muscle Wasting Neurological: Cranial nerves II-XII grossly intact, Neuro grossly intact Psych/Mental Status: Normal Affect, Appropriate, Alert and oriented to time, place, person, mood and affect Debridement Note Post-Debridement Measurements/Treatment WC - Nurse 2 - General Ulcer CM Notes Start: 04/19/18 09:04 Freq: Status: Active Protocol: Activity Type Activity Date Activity User E-Sign Co-Sign Detail Recorded Client Recorded Date Recorded By Document 04/19/18 09:24 MW [id number] 04/19/18 09:26 MW Document 04/29/18 15:03 JS [id number] 04/29/18 15:16 JS 04/19/18 04/29/18 09:24 15:03 Wound Center Nurse 2 #2 LEFT LOWER LEG -Time 09:24 15:04 -Correct Patient Yes Yes -Correct Side, Site, Position Yes Yes -Correct Procedure Yes Yes -Procedure Performed Yes Yes -Type of Procedure Debridement Debridement -Clinical Debridement Subcutaneous Subcutaneous -Post Debridement Size (cm) - Length 0.6 0.7 -Post Debridement Size (cm) - Width 0.6 0.5 -Post Debridement Size (cm) - Depth 0.2 0.3 -Total Square Cm 0.36 0.35 -Wound/Ulcer Outcome Not Healed Not Healed -Ulcer Cleansing Rinsed/ Rinsed/ Irrigated with Irrigated with Saline Saline -Foul Odor after Cleansing No No -Bioengineered Tissue No No -Injectable Lidocaine (%) 4 -Injectable Lidocaine w/ Epi (%) 5 -Bleeding Controlled with Pressure -Offloading No No -Treatment Response Procedure Procedure Tolerated Well Tolerated Well Pain Scale: 0-10 Numeric Is Patient Pain Free? Yes Yes Pain Scale: Adult NonVerbal Is Patient Pain Free? 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 He presents with an ulceration of the left medial calf, appearing to be related to his chronic venous disease. He is otherwise generally healthy. The patient's recent venous duplex examination reveals incompetence of the left great and small saphenous veins. His noninvasive lower extremity arterial study is normal. Plan: Conservative treatment measures have been implemented. Patient is to continue sleeping on a flat mattress at night. He is to elevate his legs to heart level, or higher, even during daytime hours. Avoidance of idle standing and sitting has been recommended. The patient is to remain active. Activity has been encouraged. Weight loss has been advised. Compression is to be continued by means of graduated compression stockings of 20-30 mmHg compression, which the patient possesses. We are to continue the use of collagenase Santyl topically on a daily basis relative to the small ulceration on the left medial calf. The patient is to return in 1 week for reassessment. We are to request recent laboratory studies from the [facility], which have been recently performed. We have briefly discussed the possibility of endovenous ablation of the incompetent superficial veins in the left lower extremity, a procedure which may be of benefit at some point in the future. The patient is non-smoker. Influenza vaccine was not administered today. Patient weighs 270 pounds. He stands 6 feet 0 inches in height. BMI is 36.6. This places him in a class II obesity category. Weight loss has been recommended, in collaboration with the patient's primary care physician has been advised.
--- NOTE | 2018-05-13 12:27 | HP.PCM_ITS ---
(1) Chronic venous insufficiency Status: Chronic Current Visit: Yes Code(s): I87.2 - Venous insufficiency (chronic) (peripheral) (2) Venous hypertension, chronic, with ulcer and inflammation Status: Chronic Current Visit: Yes Qualifiers: Laterality: left Qualified Code(s): I87.332 - Chronic venous hypertension (idiopathic) with ulcer and inflammation of left lower extremity; L97.929 - Non- pressure chronic ulcer of unspecified part of left lower leg with unspecified severity Code(s): I87.339 - Chronic venous hypertension (idiopathic) with ulcer and inflammation of unspecified lower extremity; L97.909 - Non-pressure chronic ulcer of unspecified part of unspecified lower leg with unspecified severity (3) Venous stasis ulcer Status: Chronic Current Visit: Yes Qualifiers: Venous stasis ulcer site: calf Varicose vein presence: with varicose veins Laterality: left Non-pressure ulcer stage: with fat layer exposed Qualified Code(s): I83.022 - Varicose veins of left lower extremity with ulcer of calf; L97.222 - Non-pressure chronic ulcer of left calf with fat layer exposed Code(s): I83.009 - Varicose veins of unspecified lower extremity with ulcer of unspecified site; L97.909 - Non-pressure chronic ulcer of unspecified part of unspecified lower leg with unspecified severity (4) Hyperpigmentation Status: Chronic Current Visit: Yes Code(s): L81.9 - Disorder of pigmentation, unspecified (5) Lipodermatosclerosis Status: Chronic Current Visit: Yes Code(s): I83.10 - Varicose veins of unspecified lower extremity with inflammation (6) Obesity (BMI 30-39.9) Status: Chronic Current Visit: Yes Code(s): E66.9 - Obesity, unspecified History of Present Illness Chief Complaint: Chronic venous insufficiency, venous hypertension with inflammation and ulceration, venous stasis ulceration?left medial calf History of Wound: This is a 72-year-old male with an ulceration of the left medial calf, which has been present since February 2018. Patient has a history of chronic venous insufficiency, venous hypertension with inflammation and ulceration, and venous stasis ulceration. He has been treated at the [facility] since February 2018, relative to the ulceration on the left medial calf. It temporarily healed, but recurred within a matter of days. He has previously undergone endothermal ablation of inc ompetent superficial veins in the right lower extremity, performed in 2012. A venous study performed in April 2013 reveals successful ablation of the right great saphenous vein anterior accessory saphenous veins. A noninvasive lower extremity arterial study performed in June 2012 reveals triphasic waveforms at all levels, and normal ankle-brachial indices bilaterally. There was no evidence of significant arterial occlusive disease. In recent months, the patient has been using Shalonda topically to the ulceration on the left medial calf, and had undergone serial debridements. He owns graduated compression stockings of 20-30 mmHg compression, which he typically wears on a daily basis. The patient denies a history of thrombophlebitis. 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 He also has undergone several anorectal surgical procedures. A sigmoid colon resection was performed in June 2017. Allergies/Adverse Reactions: Allergies amoxicillin [From Augmentin] Adverse Reaction (Verified 07/20/17 22:35) Abd cramps/diarrhea clavulanic acid [From Augmentin] Adverse Reaction (Verified 07/20/17 22:35) Abd cramps/diarrhea ibuprofen [From Motrin] Adverse Reaction (Verified 07/20/17 22:35) Other Home Medications: Ambulatory Orders Medication Instructions Recorded Calcium Citrate - Vit D Tablet 600 mg PO DAILY 07/08/17 Finasteride [Proscar] 5 mg PO QHS 07/08/17 L.acidoph,Paracasei, B.lactis 1 each PO DAILY 07/08/17 [Probiotic] Lorazepam [Ativan] 0.5 mg PO DAILY PRN PRN 07/08/17 Meloxicam [Mobic] 15 mg PO QODAY 07/08/17 Multivit-Min/FA/Lycopen/Lutein 1 tab PO DAILY 07/08/17 [Centrum Silver Men Tablet] Pantoprazole Sodium [Protonix] 40 mg PO QODAY 07/08/17 Tamsulosin HCl [Flomax] 0.4 mg PO DAILY 07/08/17 Oxycodone [Oxyir] 5 mg PO Q4H PRN PRN 7 Days #20 tab 07/14/17 Venlafaxine XR [Effexor Xr] 37.5 mg PO DAILY capsule 07/14/17 - Family History Paternal - - The patient's father at the age of 80 with a history of coronary artery disease. Maternal - - The patient's mother at the age of 90 with a history of renal insufficiency. Smoking Status: Never smoker Tobacco Use: Non-smoker Alcohol: Occasional - The patient consumes 1 beer daily. Drugs: None Review of Systems Constitutional: Denies: Chills, Fever, Weight Change Eyes: Denies: Pain, Vision Change HEENT: Denies: Difficulty Hearing, Difficulty Swallowing, Sinus Congestion Cardiovascular: Denies: Chest Pain, Palpitations Respiratory: Denies: Cough, Shortness of Breath Gastrointestinal: Denies: Diarrhea, Nausea, Vomiting Genitourinary: Denies: Dysuria, Hematuria Endocrine: Denies: Heat/ Cold Intolerance, Polydipsia, Polyuria Hematologic/ Lymphatic: Denies: Easy Bruising, Easy Bleeding - Physical Exam Vital Signs Temp Pulse Resp BP 98.6 F 83 16 164/86 H 05/13/18 12:05 05/13/18 12:05 05/13/18 12:05 05/13/18 12:05 General: Alert, Oriented x3, Cooperative, No apparent distress, Well developed, Well nourished HEENT: Atraumatic, PERRLA, EOMI, Normocephalic Oral: Moist Mucosa Neck: No JVD Lungs: Normal air movement Abdomen: Non-Distended Extremities: No clubbing, No cyanosis, No edema, No Calf Tenderness, - - There is no significant swelling or edema in the left lower extremity. The ulceration on the left medial calf persists, but appears slightly smaller in size. Dimensions are documented elsewhere. The base of the ulceration demonstrates a moderate amount of bioburden. Ulcer margins are well beveled. There is no sign of infection or cellulitis. Chronic hyperpigmentation is noted in association with the ulcerated area. Skin: No rashes Wound Measurements and Assessment WC - Nurse 1 - General Ulcer Measurement Start: 04/19/18 09:04 Freq: Status: Active Protocol: Activity Type Activity Date Activity User E-Sign Co-Sign Detail Recorded Client Recorded Date Recorded By Document 05/13/18 12:05 CS [id number] 05/13/18 12:13 CS 05/13/18 12:05 Wound Center Nurse 1 [Ulcer Assessment] #2 LEFT LOWER LEG -Combined with other wound No -Current Size (cm) - Length 0.7 -Current Size (cm) - Width 0.7 -Current Size (cm) - Depth 0.2 -Total Square Cm 0.49 -Photo Taken No -Epithelialization None Present -Tunneling No -Undermining/Tunneling No -Circular Undermining No -Exudate Amt Medium (34-66%) -Exudate Type Serosanguineous -Wound Margin Distinct, Outline Attached -Granulation Amt None Present (0 %) -Granulation Quality N/A -Slough/Fibrin Yes -Necrosis Amt Large (67-100%) -Necrotic Tissue Type Adherent Slough -Texture (Aye-wound Skin Appearance) No Abnormality Assessed -Moisture (Aye-wound Skin Appearance No Abnormality ) Assessed -Color (Aye-wound Skin Appearance) Hemosiderin Staining -Temperature (Aye-wound Skin No Abnormality Appearance) (Pt Warm) -Tenderness on Palpation (Aye-wound No Skin Appearance) -Ulcer Cleansing Rinsed/ Irrigated with Saline -Foul Odor after Cleansing No -Anesthetic Used 4% Lidocaine Solution [Edema Assessment] -Lower Limb Edema Present No -Left Calf (cm) 40 -Left Ankle (cm) 23.6 Musculoskeletal: No Muscle Wasting Neurological: Cranial nerves II-XII grossly intact, Neuro grossly intact Psych/Mental Status: Normal Affect, Appropriate, Alert and oriented to time, place, person, mood and affect Debridement Note Post-Debridement Measurements/Treatment WC - Nurse 2 - General Ulcer CM Notes Start: 04/19/18 09:04 Freq: Status: Active Protocol: Activity Type Activity Date Activity User E-Sign Co-Sign Detail Recorded Client Recorded Date Recorded By Document 04/19/18 09:24 MW [id number] 04/19/18 09:26 MW Document 04/29/18 15:03 JS [id number] 04/29/18 15:16 JS 04/19/18 04/29/18 09:24 15:03 Wound Center Nurse 2 #2 LEFT LOWER LEG -Time 09:24 15:04 -Correct Patient Yes Yes -Correct Side, Site, Position Yes Yes -Correct Procedure Yes Yes -Procedure Performed Yes Yes -Type of Procedure Debridement Debridement -Clinical Debridement Subcutaneous Subcutaneous -Post Debridement Size (cm) - Length 0.6 0.7 -Post Debridement Size (cm) - Width 0.6 0.5 -Post Debridement Size (cm) - Depth 0.2 0.3 -Total Square Cm 0.36 0.35 -Wound/Ulcer Outcome Not Healed Not Healed -Ulcer Cleansing Rinsed/ Rinsed/ Irrigated with Irrigated with Saline Saline -Foul Odor after Cleansing No No -Bioengineered Tissue No No -Injectable Lidocaine (%) 4 -Injectable Lidocaine w/ Epi (%) 5 -Bleeding Controlled with Pressure -Offloading No No -Treatment Response Procedure Procedure Tolerated Well Tolerated Well Pain Scale: 0-10 Numeric Is Patient Pain Free? Yes Yes Pain Scale: Adult NonVerbal Is Patient Pain Free? Yes Laterality: Left - Medial calf Type of Debridement: Excisional debridement Anesthesia Used: 5% Lidocaine Gel Depth: Down to and including healthy tissue, in the subcutaneous layer Percentage of wound debrided: 100 Instrument Used: 3mm curette Severity: Fat Layer Exposed Amount of bleeding with debridement: Mild Bleeding Controlled with: Compression and gauze Patient tolerated procedure well Assessment/Plan Active Problems Peripheral vascular disease of lower extremity with ulceration (Chronic) Open wound (Acute) Non-healing wound of lower extremity (Acute) Chronic venous insufficiency (Chronic) Venous hypertension, chronic, with ulcer and inflammation (Chronic) Venous stasis ulcer (Chronic) Hyperpigmentation (Chronic) Lipodermatosclerosis (Chronic) Obesity (BMI 30-39.9) (Chronic) Assessment: This is a 72-year-old mal with a long-standing history of chronic ve nous insufficiency, venous hypertension with inflammation and ulceration, etc. He presents with an ulceration of the left medial calf, appearing to be related to his chronic venous disease. He is otherwise generally healthy. The patient's recent venous duplex examination reveals incompetence of the left great and small saphenous veins. His noninvasive lower extremity arterial study is normal. Plan: Conservative treatment measures have been implemented. Patient is to continue sleeping on a flat mattress at night. He is to elevate his legs to heart level, or higher, even during daytime hours. Avoidance of idle standing and sitting has been recommended. The patient is to remain active. Activity has been encouraged. Weight loss has been advised. Compression is to be continued by means of graduated compression stockings of 20-30 mmHg compression, which the patient possesses. We are to continue the use of collagenase Santyl topically on a daily basis relative to the small ulceration on the left medial calf. The patient is to return in 1 week for reassessment. We are to request recent laboratory studies from the [facility], which have been recently performed. We have briefly discussed the possibility of endovenous ablation of the incompetent superficial veins in the left lower extremity, a procedure which may be of benefit at some point in the future. The patient is non-smoker. Influenza vaccine was not administered today. Patient weighs 270 pounds. He stands 6 feet 0 inches in height. BMI is 36.6. This places him in a class II o besity category. Weight loss has been recommended, in collaboration with the patient's primary care physician has been advised.
== END 2018-05-13 23:59 ==
LOC: WC 12:00
PROVIDERS: Family Provider Family Medicine; PCP Family Medicine; Referring Provider Surgery; Visit Provider Surgery
DX: I83.222 Varicose veins of left lower extremity with both ulcer of calf and inflammation (principal); L97.321 Non-pressure chronic ulcer of left ankle limited to breakdown of skin; I73.9 Peripheral vascular disease, unspecified; L97.222 Non-pressure chronic ulcer of left calf with fat layer exposed; E66.9 Obesity, unspecified; Z68.36 Body mass index [BMI] 36.0-36.9, adult; Z71.3 Dietary counseling and surveillance
CPT/HCPCS: 11042; 93922; 93970

== ENCOUNTER 2018-06-10 12:00 | Outpatient (RCR) | payer MEDICARE, SELFPAY ==
[2018-05-14 00:27] VITALS: BP 164/86; PULSE 83; RESP 16; TEMP 37
[2018-05-20 12:22] VITALS: BP 160/86; PULSE 84; TEMP 37.2; BMI 36.6
--- NOTE | 2018-05-20 13:14 | HP.PCM_ITS ---
(1) Open wound Status: Chronic Current Visit: Yes Code(s): T14.8XXA - Other injury of unspecified body region, initial encounter (2) Non-healing wound of lower extremity Status: Chronic Current Visit: Yes Qualifiers: Encounter type: subsequent encounter Laterality: left Qualified Code(s): S81.802D - Unspecified open wound, left lower leg, subsequent encounter Code(s): S81.809A - Unspecified open wound, unspecified lower leg, initial encounter (3) Chronic venous insufficiency Status: Chronic Current Visit: Yes Code(s): I87.2 - Venous insufficiency (chronic) (peripheral) (4) Venous hypertension, chronic, with ulcer and inflammation Status: Chronic Current Visit: Yes Qualifiers: Laterality: left Code(s): I87.339 - Chronic venous hypertension (idiopathic) with ulcer and inflammation of unspecified lower extremity; L97.909 - Non-pressure chronic ulcer of unspecified part of unspecified lower leg with unspecified severity (5) Venous stasis ulcer Status: Chronic Current Visit: Yes Qualifiers: Venous stasis ulcer site: calf Varicose vein presence: with varicose veins Laterality: left Code(s): I83.009 - Varicose veins of unspecified lower extremity with ulcer of unspecified site; L97.909 - Non-pressure chronic ulcer of unspecified part of unspecified lower leg with unspecified severity (6) Hyperpigmentation Status: Chronic Current Visit: Yes Code(s): L81.9 - Disorder of pigmentation, unspecified (7) Lipodermatosclerosis Status: Chronic Current Visit: Yes Code(s): I83.10 - Varicose veins of unspecified lower extremity with inflammation (8) Obesity (BMI 30-39.9) Status: Chronic Current Visit: No Code(s): E66.9 - Obesity, unspecified History of Present Illness Chief Complaint: Chronic venous insufficiency, venous hypertension with inflammation and ulceration, venous stasis ulceration?left medial calf History of Wound: This is a 72-year-old male with an ulceration of the left medial calf, which has been present since February 2018. Patient has a history of chronic venous insufficiency, venous hypertension with inflammation and ulceration, and venous stasis ulceration. He has been treated at the [facility] since February 2018, relative to the ulceration on the left medial calf. It temporarily healed, but recurred within a matter of days. He has previously undergone endothermal ablation of incompetent superficial veins in the right lower extremity, performed in 2012. A venous study performed in April 2013 reveals successful ablation of the right great saphenous vein anterior accessory saphenous veins. In recent months, the patient had been using Shalonda topically to the ulceration on the left medial calf, and had undergone serial debridements. He owns graduated compression stockings of 20-30 mmHg compression, which he typically wears on a daily basis. The patient denies a history of thrombophlebitis. Patient has recently undergone a noninvasive lower extremity arterial study, dated May 10, 2018, which revealed no evidence of significant arterial occlusive disease in the lower extremities. Venous duplex examination revealed valvular incompetence involving the left great saphenous vein in the left small saphenous vein. 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 He also has undergone several anorectal surgical procedures. A sigmoid colon resection was performed in June 2017. Allergies/Adverse Reactions: Allergies amoxicillin [From Augmentin] Adverse Reaction (Verified 07/20/17 22:35) Abd cramps/diarrhea clavulanic acid [From Augmentin] Adverse Reaction (Verified 07/20/17 22:35) Abd cramps/diarrhea ibuprofen [From Motrin] Adverse Reaction (Verified 07/20/17 22:35) Other Home Medications: Ambulatory Orders Medication Instructions Recorded Calcium Citrate - Vit D Tablet 600 mg PO DAILY 07/08/17 Finasteride [Proscar] 5 mg PO QHS 07/08/17 L.acidoph,Paracasei, B.lactis 1 each PO DAILY 07/08/17 [Probiotic] Lorazepam [Ativan] 0.5 mg PO DAILY PRN PRN 07/08/17 Meloxicam [Mobic] 15 mg PO QODAY 07/08/17 Multivit-Min/FA/Lycopen/Lutein 1 tab PO DAILY 07/08/17 [Centrum Silver Men Tablet] Pantoprazole Sodium [Protonix] 40 mg PO QODAY 07/08/17 Tamsulosin HCl [Flomax] 0.4 mg PO DAILY 07/08/17 Oxycodone [Oxyir] 5 mg PO Q4H PRN PRN 7 Days #20 tab 07/14/17 Venlafaxine XR [Effexor Xr] 37.5 mg PO DAILY capsule 07/14/17 - Family History Paternal - - The patient's father at the age of 80 with a history of coronary artery disease. Maternal - - The patient's mother at the age of 90 with a history of renal insufficiency. Smoking Status: Never smoker Tobacco Use: Non-smoker Review of Systems Constitutional: Denies: Chills, Fever, Weight Change Eyes: Denies: Pain, Vision Change HEENT: Denies: Difficulty Hearing, Difficulty Swallowing, Sinus Congestion Cardiovascular: Denies: Chest Pain, Palpitations Respiratory: Denies: Cough, Shortness of Breath Gastrointestinal: Denies: Diarrhea, Nausea, Vomiting Genitourinary: Denies: Dysuria, Hematuria Endocrine: Denies: Heat/ Cold Intolerance, Polydipsia, Polyuria Hematologic/ Lymphatic: Denies: Easy Bruising, Easy Bleeding - Physical Exam Vital Signs Temp Pulse Resp BP 98.9 F 84 16 160/86 H 05/20/18 12:22 05/20/18 12:22 05/14/18 00:27 05/20/18 12:22 General: Alert, Oriented x3, Cooperative, No apparent distress, Well developed, Well nourished HEENT: Atraumatic, PERRLA, EOMI, Normocephalic Oral: Moist Mucosa Neck: No JVD Lungs: Normal air movement Abdomen: Non-Distended Extremities: No clubbing, No cyanosis, No Calf Tenderness, - - Swelling and edema in the left lower extremity appears to be well controlled. There is no significant swelling or edema. The ulceration on the left medial calf persists, but is smaller in size. Dimensions are documented elsewhere. There is no sign of infection or cellulitis. There is a moderate amount of bioburden. Ulcer margins are well beveled. Hyperpigmentation is noted in the medial gaiter area of the left lower extremity, in the vicinity of the patient's ulceration. Wound Measurements and Assessment - Nurse 1 - General Ulcer Measurement Start: 05/20/18 12:21 Freq: Status: Active Protocol: Activity Type Activity Date Activity User E-Sign Co-Sign Detail Recorded Client Recorded Date Recorded By Document 05/20/18 12:22 ANA ROSA [id number] 05/20/18 12:27 05/20/18 12:22 Wound Center Nurse 1 [Ulcer Assessment] #2 LEFT LOWER LEG -Combined with other wound No -Current Size (cm) - Length 0.7 -Current Size (cm) - Width 0.7 -Current Size (cm) - Depth 0.2 -Total Square Cm 0.49 -Photo Taken No -Epithelialization None Present -Tunneling No -Undermining/Tunneling No -Circular Undermining No -Exudate Amt Small (1-33%) -Exudate Type Serosanguineous -Wound Margin Distinct, Outline Attached -Granulation Amt None Present (0 %) -Granulation Quality N/A -Necrosis Amt Large (67-100%) -Necrotic Tissue Type Adherent Slough -Structure Exposed None/Limited to Skin Breakdown -Texture (Aye-wound Skin Appearance) No Abnormality Assessed -Moisture (Aye-wound Skin Appearance No Abnormality ) Assessed -Color (Aye-wound Skin Appearance) Hemosiderin Staining -Temperature (Aye-wound Skin No Abnormality Appearance) (Pt Warm) -Tenderness on Palpation (Aye-wound Yes Skin Appearance) -Ulcer Cleansing Rinsed/ Irrigated with Saline -Foul Odor after Cleansing No -Anesthetic Used 4% Lidocaine Solution [Edema Assessment] -Lower Limb Edema Present No -Left Calf (cm) 41 -Left Ankle (cm) 23 - Nurse 2 - General Ulcer CM Notes Start: 05/20/18 12:21 Freq: Status: Active Protocol: Activity Type Activity Date Activity User E-Sign Co-Sign Detail Recorded Client Recorded Date Recorded By Document 05/20/18 12:38 SYLVAIN [id number] 05/20/18 13:05 SYLVAIN 05/20/18 12:38 Wound Center Nurse 2 [Procedure/Treatment] #2 LEFT LOWER LEG -Time 12:39 -Correct Patient Yes -Correct Side, Site, Position Yes -Correct Procedure Yes -Procedure Performed Yes -Type of Procedure Debridement -Clinical Debridement Subcutaneous -Post Debridement Size (cm) - Length 0.6 -Post Debridement Size (cm) - Width 0.7 -Post Debridement Size (cm) - Depth 0.4 -Total Square Cm 0.42 -Wound/Ulcer Outcome Amputation -Ulcer Cleansing Rinsed/ Irrigated with Saline -Foul Odor after Cleansing No -Bioengineered Tissue No -Topical Lidocaine (%) 4 -Lidocaine (ml) 5 -Bleeding Controlled with NA -Offloading No -Treatment Response Procedure Tolerated Well [See Physician Procedure note for Specifics] Pain Scale: 0-10 Numeric [Pain] -Is Patient Pain Free? Yes Musculoskeletal: No Muscle Wasting Neurological: Cranial nerves II-XII grossly intact, Neuro grossly intact Psych/Mental Status: Normal Affect, Appropriate, Alert and oriented to time, place, person, mood and affect Debridement Note Post-Debridement Measurements/Treatment WC - Nurse 2 - General Ulcer CM Notes Start: 05/20/18 12:21 Freq: Status: Active Protocol: Activity Type Activity Date Activity User E-Sign Co-Sign Detail Recorded Client Recorded Date Recorded By Document 05/20/18 12:38 SYLVAIN [id number] 05/20/18 13:05 SYLVAIN 05/20/18 12:38 Wound Center Nurse 2 #2 LEFT LOWER LEG -Time 12:39 -Correct Patient Yes -Correct Side, Site, Position Yes -Correct Procedure Yes -Procedure Performed Yes -Type of Procedure Debridement -Clinical Debridement Subcutaneous -Post Debridement Size (cm) - Length 0.6 -Post Debridement Size (cm) - Width 0.7 -Post Debridement Size (cm) - Depth 0.4 -Total Square Cm 0.42 -Wound/Ulcer Outcome Amputation -Ulcer Cleansing Rinsed/ Irrigated with Saline -Foul Odor after Cleansing No -Bioengineered Tissue No -Topical Lidocaine (%) 4 -Lidocaine (ml) 5 -Bleeding Controlled with NA -Offloading No -Treatment Response Procedure Tolerated Well Pain Scale: 0-10 Numeric Is Patient Pain Free? Yes Laterality: Left - Medial calf Type of Debridement: Excisional debridement Anesthesia Used: 5% Lidocaine Gel Depth: Down to and including healthy tissue, in the subcutaneous layer Percentage of wound debrided: 100 Instrument Used: 3mm curette Severity: Fat Layer Exposed Amount of bleeding with debridement: Mild Bleeding Controlled with: Compression and gauze Patient tolerated procedure well Assessment/Plan Active Problems Open wound (Acute) Non-healing wound of lower extremity (Chronic) Chronic venous insufficiency (Chronic) Venous hypertension, chronic, with ulcer and inflammation (Chronic) Venous stasis ulcer (Chronic) Hyperpigmentation (Chronic) Lipodermatosclerosis (Chronic) Assessment: This is a 72-year-old male with a long-standing history of chronic venous insufficiency, venous hypertension with inflammation and ulceration, etc. He presents with an ulceration of the left medial calf, appearing to be related to his chronic venous disease. He is otherwise generally healthy. The patient's recent venous duplex examination reveals incompetence of the left great and small saphenous veins. His noninvasive lower extremity arterial study is normal. Plan: Conservative treatment measures have been implemented. Patient is to continue sleeping on a flat mattress at night. He is to elevate his legs to heart level, or higher, even during daytime hours. Avoidance of idle standing and sitting has been recommended. The patient is to remain active. Activity has been encouraged. Weight loss has been advised. Compression is to be continued by means of graduated compression stockings of 20-30 mmHg compression, which the patient possesses. We are to continue the use of collagenase Santyl topically on a daily basis relative to the small ulceration on the left medial calf. The patient is to return in 1 week for reassessment. We have discussed the possibility of endovenous ablation of the incompetent superficial veins in the left lower extremity, a procedure which may be of benefit at some point in the future. The patient is non-smoker. Influenza vaccine was not administered today. Patient weighs 270 pounds. He stands 6 feet 0 inches in height. BMI is 36.6. This places him in a class II obesity category. Weight loss has been recommended, in collaboration with the patient's primary care physician has been advised.
[2018-05-27 12:19] VITALS: BP 147/73; PULSE 72; RESP 18; TEMP 36; BMI 36.6
--- NOTE | 2018-05-27 12:42 | PCM.WC.HP ---
(1) Open wound Status: Chronic Current Visit: Yes Code(s): T14.8XXA - Other injury of unspecified body region, initial encounter (2) Non-healing wound of lower extremity Status: Chronic Current Visit: Yes Qualifiers: Encounter type: subsequent encounter Laterality: left Qualified Code(s): S81.802D - Unspecified open wound, left lower leg, subsequent encounter Code(s): S81.809A - Unspecified open wound, unspecified lower leg, initial encounter (3) Chronic venous insufficiency Status: Chronic Current Visit: Yes Code(s): I87.2 - Venous insufficiency (chronic) (peripheral) (4) Venous hypertension, chronic, with ulcer and inflammation Status: Chronic Current Visit: Yes Qualifiers: Laterality: left Code(s): I87.339 - Chronic venous hypertension (idiopathic) with ulcer and inflammation of unspecified lower extremity; L97.909 - Non-pressure chronic ulcer of unspecified part of unspecified lower leg with unspecified severity (5) Venous stasis ulcer Status: Chronic Current Visit: Yes Qualifiers: Venous stasis ulcer site: calf Varicose vein presence: with varicose veins Laterality: left Code(s): I83.009 - Varicose veins of unspecified lower extremity with ulcer of unspecified site; L97.909 - Non-pressure chronic ulcer of unspecified part of unspecified lower leg with unspecified severity (6) Hyperpigmentation Status: Chronic Current Visit: Yes Code(s): L81.9 - Disorder of pigmentation, unspecified (7) Lipodermatosclerosis Status: Chronic Current Visit: Yes Code(s): I83.10 - Varicose veins of unspecified lower extremity with inflammation (8) Obesity (BMI 30-39.9) Status: Chronic Current Visit: No Code(s): E66.9 - Obesity, unspecified History of Present Illness Chief Complaint: Chronic venous insufficiency, venous hypertension with inflammation and ulceration, venous stasis ulceration?left medial calf History of Wound: This is a 72-year-old male with an ulceration of the left medial calf, which has been present since February 2018. Patient has a history of chronic venous insufficiency, venous hypertension with inflammation and ulceration, and venous stasis ulceration. He has been treated at the [facility] since February 2018, relative to the ulceration on the left medial calf. It temporarily healed, but recurred within a matter of days. He has previously undergone endothermal ablation of incompetent superficial veins in the right lower extremity, performed in 2012. A venous study performed in April 2013 reveals successful ablation of the right great saphenous vein anterior accessory saphenous veins. In recent months, the patient had been using Shalonda topically to the ulceration on the left medial calf, and had undergone serial debridements. He owns graduated compression stockings of 20-30 mmHg compression, which he typically wears on a daily basis. The patient denies a history of thrombophlebitis. Patient has recently undergone a noninvasive lower extremity arterial study, dated May 10, 2018, which revealed no evidence of significant arterial occlusive disease in the lower extremities. Venous duplex examination revealed valvular incompetence involving the left great saphenous vein in the left small saphenous vein. 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 He also has undergone several anorectal surgical procedures. A sigmoid colon resection was performed in June 2017. Allergies/Adverse Reactions: Allergies amoxicillin [From Augmentin] Adverse Reaction (Verified 07/20/17 22:35) Abd cramps/diarrhea clavulanic acid [From Augmentin] Adverse Reaction (Verified 07/20/17 22:35) Abd cramps/diarrhea ibuprofen [From Motrin] Adverse Reaction (Verified 07/20/17 22:35) Other Home Medications: Ambulatory Orders Medication Instructions Recorded Calcium Citrate - Vit D Tablet 600 mg PO DAILY 07/08/17 Finasteride [Proscar] 5 mg PO QHS 07/08/17 L.acidoph,Paracasei, B.lactis 1 each PO DAILY 07/08/17 [Probiotic] Lorazepam [Ativan] 0.5 mg PO DAILY PRN PRN 07/08/17 Meloxicam [Mobic] 15 mg PO QODAY 07/08/17 Multivit-Min/FA/Lycopen/Lutein 1 tab PO DAILY 07/08/17 [Centrum Silver Men Tablet] Pantoprazole Sodium [Protonix] 40 mg PO QODAY 07/08/17 Tamsulosin HCl [Flomax] 0.4 mg PO DAILY 07/08/17 Oxycodone [Oxyir] 5 mg PO Q4H PRN PRN 7 Days #20 tab 07/14/17 Venlafaxine XR [Effexor Xr] 37.5 mg PO DAILY capsule 07/14/17 - Family History Paternal - - The patient's father at the age of 80 with a history of coronary artery disease. Maternal - - The patient's mother at the age of 90 with a history of renal insufficiency. Smoking Status: Never smoker Tobacco Use: Non-smoker Review of Systems Constitutional: Denies: Chills, Fever, Weight Change Eyes: Denies: Pain, Vision Change HEENT: Denies: Difficulty Hearing, Difficulty Swallowing, Sinus Congestion Cardiovascular: Denies: Chest Pain, Palpitations Respiratory: Denies: Cough, Shortness of Breath Gastrointestinal: Denies: Diarrhea, Nausea, Vomiting Genitourinary: Denies: Dysuria, Hematuria Endocrine: Denies: Heat/ Cold Intolerance, Polydipsia, Polyuria Hematologic/ Lymphatic: Denies: Easy Bruising, Easy Bleeding - Physical Exam Vital Signs Temp Pulse Resp BP 96.8 F L 72 18 147/73 H 05/27/18 12:19 05/27/18 12:19 05/27/18 12:19 05/27/18 12:19 General: Alert, Oriented x3, Cooperative, No apparent distress, Well developed, Well nourished HEENT: Atraumatic, PERRLA, EOMI, Normocephalic Oral: Moist Mucosa Neck: No JVD Lungs: Normal air movement Abdomen: Non-Distended Extremities: No clubbing, No cyanosis, No edema, No Calf Tenderness, - - There is no significant swelling or edema in his left lower extremity. The ulceration persists on the left medial calf. Dimensions are documented elsewhere. There is a moderate amount of bioburden. There is no evidence of infection or cellulitis. Chronic hyperpigmentation persists about the ulceration. Skin: No rashes Wound Measurements and Assessment WC - Nurse 1 - General Ulcer Measurement Start: 05/20/18 12:21 Freq: Status: Active Protocol: Activity Type Activity Date Activity User E-Sign Co-Sign Detail Recorded Client Recorded Date Recorded By Document 05/27/18 12:19 MW [id number] 05/27/18 12:26 MW 05/27/18 12:19 Wound Center Nurse 1 [Ulcer Assessment] #2 LEFT LOWER LEG -Combined with other wound No -Current Size (cm) - Length 0.6 -Current Size (cm) - Width 0.8 -Current Size (cm) - Depth 0.2 -Total Square Cm 0.48 -Date of Last Picture (Recall this 05/27/18 field) -Photo Taken Yes -Epithelialization Small 1-33% -Tunneling No -Undermining/Tunneling No -Circular Undermining No -Exudate Amt None Present -Wound Margin Flat & Intact -Granulation Amt None Present (0 %) -Granulation Quality N/A -Slough/Fibrin Yes -Necrosis Amt Large (67-100%) -Necrotic Tissue Type Adherent Slough -Structure Exposed N/A -Texture (Aye-wound Skin Appearance) Assessed Localized Edema Scarring -Moisture (Aye-wound Skin Appearance Assessed ) -Temperature (Aye-wound Skin No Abnormality Appearance) (Pt Warm) -Tenderness on Palpation (Aye-wound No Skin Appearance) -Ulcer Cleansing Rinsed/ Irrigated with Saline -Foul Odor after Cleansing No -Anesthetic Used 4% Lidocaine Solution 5% Lidocaine Gel [Edema Assessment] -Lower Limb Edema Present Yes -Left Calf (cm) 40.6 -Left Ankle (cm) 20.4 WC - Nurse 2 - General Ulcer CM Notes Start: 05/20/18 12:21 Freq: Status: Active Protocol: Activity Type Activity Date Activity User E-Sign Co-Sign Detail Recorded Client Recorded Date Recorded By Document 05/27/18 12:38 DV [id number] 05/27/18 12:41 DV 05/27/18 12:38 Wound Center Nurse 2 [Procedure/Treatment] #2 LEFT LOWER LEG -Time 12:39 -Correct Patient Yes -Correct Side, Site, Position Yes -Correct Procedure Yes -Procedure Performed Yes -Type of Procedure Debridement -Clinical Debridement Subcutaneous -Post Debridement Size (cm) - Length 0.7 -Post Debridement Size (cm) - Width 1.0 -Post Debridement Size (cm) - Depth 0.4 -Total Square Cm 0.70 -Wound/Ulcer Outcome Not Healed -Ulcer Cleansing Rinsed/ Irrigated with Saline -Foul Odor after Cleansing No -Bioengineered Tissue No -Bleeding Controlled with Pressure -Offloading No -Treatment Response Procedure Tolerated Well [See Physician Procedure note for Specifics] Pain Scale: 0-10 Numeric [Pain] -Is Patient Pain Free? Yes Musculoskeletal: No Muscle Wasting Neurological: Cranial nerves II-XII grossly intact, Neuro grossly intact Psych/Mental Status: Normal Affect, Appropriate, Alert and oriented to time, place, person, mood and affect Debridement Note Post-Debridement Measurements/Treatment WC - Nurse 2 - General Ulcer CM Notes Start: 05/20/18 12:21 Freq: Status: Active Protocol: Activity Type Activity Date Activity User E-Sign Co-Sign Detail Recorded Client Recorded Date Recorded By Document 05/20/18 12:38 JS [id number] 05/20/18 13:05 JS Document 05/27/18 12:38 DV [id number] 05/27/18 12:41 DV 05/20/18 05/27/18 12:38 12:38 Wound Center Nurse 2 #2 LEFT LOWER LEG -Time 12:39 12:39 -Correct Patient Yes Yes -Correct Side, Site, Position Yes Yes -Correct Procedure Yes Yes -Procedure Performed Yes Yes -Type of Procedure Debridement Debridement -Clinical Debridement Subcutaneous Subcutaneous -Post Debridement Size (cm) - Length 0.6 0.7 -Post Debridement Size (cm) - Width 0.7 1.0 -Post Debridement Size (cm) - Depth 0.4 0.4 -Total Square Cm 0.42 0.70 -Wound/Ulcer Outcome Amputation Not Healed -Ulcer Cleansing Rinsed/ Rinsed/ Irrigated with Irrigated with Saline Saline -Foul Odor after Cleansing No No -Bioengineered Tissue No No -Topical Lidocaine (%) 4 -Lidocaine (ml) 5 -Bleeding Controlled with NA Pressure -Offloading No No -Treatment Response Procedure Procedure Tolerated Well Tolerated Well Pain Scale: 0-10 Numeric Is Patient Pain Free? Yes Yes Laterality: Left - Medial calf Type of Debridement: Excisional debridement Anesthesia Used: 5% Lidocaine Gel Depth: Down to and including healthy tissue, in the subcutaneous layer Percentage of wound debrided: 100 Instrument Used: 3mm curette Severity: Fat Layer Exposed Amount of bleeding with debridement: Mild Bleeding Controlled with: Compression and gauze Patient tolerated procedure well Assessment/Plan Active Problems Open wound (Chronic) Non-healing wound of lower extremity (Chronic) Chronic venous insufficiency (Chronic) Venous hypertension, chronic, with ulcer and inflammation (Chronic) Venous stasis ulcer (Chronic) Hyperpigmentation (Chronic) Lipodermatosclerosis (Chronic) Assessment: This is a 72-year-old male with a long-standing history of chronic venous insufficiency, venous hypertension with inflammation and ulceration, etc. He presents with an ulceration of the left medial calf, appearing to be related to his chronic venous disease. He is otherwise generally healthy. The patient's recent venous duplex examination reveals incompetence of the left great and small saphenous veins. His noninvasive lower extremity arterial study is normal. Plan: Conservative treatment measures have been implemented. Patient is to continue sleeping on a flat mattress at night. He is to elevate his legs to heart level, or higher, even during daytime hours. Avoidance of idle standing and sitting has been recommended. The patient is to remain active. Activity has been encouraged. Weight loss has been advised. Compression is to be continued by means of graduated compression stockings of 20-30 mmHg compression, which the patient possesses. We are to continue the use of collagenase Santyl topically on a daily basis relative to the small ulceration on the left medial calf. The patient is to return in 1 week for reassessment. We have discussed the possibility of endovenous ablation of the incompetent superficial veins in the left lower extremity, a procedure which may be of benefit at some point in the future. The patient is non-smoker. Influenza vaccine was not administered today. Patient weighs 270 pounds. He stands 6 feet 0 inches in height. BMI is 36.6. This places him in a class II obesity category. Weight loss has been recommended, in collaboration with the patient's primary care physician has been advised.
[2018-06-04 09:06] VITALS: BP 153/78; PULSE 84; RESP 18; TEMP 35.8; BMI 36.6
--- NOTE | 2018-06-04 09:59 | PCM.WC.HP ---
(1) Open wound Status: Chronic Current Visit: Yes Code(s): T14.8XXA - Other injury of unspecified body region, initial encounter (2) Non-healing wound of lower extremity Status: Chronic Current Visit: Yes Qualifiers: Encounter type: subsequent encounter Laterality: left Qualified Code(s): S81.802D - Unspecified open wound, left lower leg, subsequent encounter Code(s): S81.809A - Unspecified open wound, unspecified lower leg, initial encounter (3) Chronic venous insufficiency Status: Chronic Current Visit: Yes Code(s): I87.2 - Venous insufficiency (chronic) (peripheral) (4) Venous hypertension, chronic, with ulcer and inflammation Status: Chronic Current Visit: Yes Qualifiers: Laterality: left Code(s): I87.339 - Chronic venous hypertension (idiopathic) with ulcer and inflammation of unspecified lower extremity; L97.909 - Non-pressure chronic ulcer of unspecified part of unspecified lower leg with unspecified severity (5) Venous stasis ulcer Status: Chronic Current Visit: Yes Qualifiers: Venous stasis ulcer site: calf Varicose vein presence: with varicose veins Laterality: left Code(s): I83.009 - Varicose veins of unspecified lower extremity with ulcer of unspecified site; L97.909 - Non-pressure chronic ulcer of unspecified part of unspecified lower leg with unspecified severity (6) Hyperpigmentation Status: Chronic Current Visit: Yes Code(s): L81.9 - Disorder of pigmentation, unspecified (7) Lipodermatosclerosis Status: Chronic Current Visit: Yes Code(s): I83.10 - Varicose veins of unspecified lower extremity with inflammation (8) Obesity (BMI 30-39.9) Status: Chronic Current Visit: No Code(s): E66.9 - Obesity, unspecified History of Present Illness Chief Complaint: Chronic venous insufficiency, venous hypertension with inflammation and ulceration, venous stasis ulceration?left medial calf History of Wound: This is a 72-year-old male with an ulceration of the left medial calf, which has been present since February 2018. Patient has a history of chronic venous insufficiency, venous hypertension with inflammation and ulceration, and venous stasis ulceration. He has been treated at the [facility] since February 2018, relative to the ulceration on the left medial calf. It temporarily healed, but recurred within a matter of days. He has previously undergone endothermal ablation of incompetent superficial veins in the right lower extremity, performed in 2012. A venous study performed in April 2013 reveals successful ablation of the right great saphenous vein anterior accessory saphenous veins. In recent months, the patient had been using Shalonda topically to the ulceration on the left medial calf, and had undergone serial debridements. He owns graduated compression stockings of 20-30 mmHg compression, which he typically wears on a daily basis. The patient denies a history of thrombophlebitis. Patient has recently undergone a noninvasive lower extremity arterial study, dated May 10, 2018, which revealed no evidence of significant arterial occlusive disease in the lower extremities. Venous duplex examination revealed valvular incompetence involving the left great saphenous vein and the left small saphenous vein. 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 He also has undergone several anorectal surgical procedures. A sigmoid colon resection was performed in June 2017. Allergies/Adverse Reactions: Allergies amoxicillin [From Augmentin] Adverse Reaction (Verified 07/20/17 22:35) Abd cramps/diarrhea clavulanic acid [From Augmentin] Adverse Reaction (Verified 07/20/17 22:35) Abd cramps/diarrhea ibuprofen [From Motrin] Adverse Reaction (Verified 07/20/17 22:35) Other Home Medications: Ambulatory Orders Medication Instructions Recorded Calcium Citrate - Vit D Tablet 600 mg PO DAILY 07/08/17 Finasteride [Proscar] 5 mg PO QHS 07/08/17 L.acidoph,Paracasei, B.lactis 1 each PO DAILY 07/08/17 [Probiotic] Lorazepam [Ativan] 0.5 mg PO DAILY PRN PRN 07/08/17 Meloxicam [Mobic] 15 mg PO QODAY 07/08/17 Multivit-Min/FA/Lycopen/Lutein 1 tab PO DAILY 07/08/17 [Centrum Silver Men Tablet] Pantoprazole Sodium [Protonix] 40 mg PO QODAY 07/08/17 Tamsulosin HCl [Flomax] 0.4 mg PO DAILY 07/08/17 Oxycodone [Oxyir] 5 mg PO Q4H PRN PRN 7 Days #20 tab 07/14/17 Venlafaxine XR [Effexor Xr] 37.5 mg PO DAILY capsule 07/14/17 - Family History Paternal - - The patient's father at the age of 80 with a history of coronary artery disease. Maternal - - The patient's mother at the age of 90 with a history of renal insufficiency. Smoking Status: Never smoker Tobacco Use: Non-smoker Review of Systems Constitutional: Denies: Chills, Fever, Weight Change Eyes: Denies: Pain, Vision Change HEENT: Denies: Difficulty Hearing, Difficulty Swallowing, Sinus Congestion Cardiovascular: Denies: Chest Pain, Palpitations Respiratory: Denies: Cough, Shortness of Breath Gastrointestinal: Denies: Diarrhea, Nausea, Vomiting Genitourinary: Denies: Dysuria, Hematuria Endocrine: Denies: Heat/ Cold Intolerance, Polydipsia, Polyuria Hematologic/ Lymphatic: Denies: Easy Bruising, Easy Bleeding - Physical Exam Vital Signs Temp Pulse Resp BP 96.4 F L 84 18 153/78 H 06/04/18 09:06 06/04/18 09:06 06/04/18 09:06 06/04/18 09:06 General: Alert, Oriented x3, Cooperative, No apparent distress, Well developed, Well nourished HEENT: Atraumatic, PERRLA, EOMI, Normocephalic Oral: Moist Mucosa Neck: No JVD Lungs: Normal air movement Abdomen: Non-Distended Extremities: No clubbing, No cyanosis, No edema, No Calf Tenderness, - - There is no significant swelling or edema in the patient's left lower extremity. The ulceration on the left medial calf persists, relatively unchanged in size. There is no sign of infection or cellulitis. Dimensions are documented elsewhere. There is a moderate amount of bioburden. There are surrounding chronic changes of hyperpigmentation and lipodermatosclerosis. Skin: No rashes Wound Measurements and Assessment WC - Nurse 1 - General Ulcer Measurement Start: 05/20/18 12:21 Freq: Status: Active Protocol: Activity Type Activity Date Activity User E-Sign Co-Sign Detail Recorded Client Recorded Date Recorded By Document 06/04/18 09:06 AN [id number] 06/04/18 09:10 AN 06/04/18 09:06 Wound Center Nurse 1 [Ulcer Assessment] #2 LEFT LOWER LEG -Photo Taken No -Epithelialization None Present -Undermining/Tunneling No -Circular Undermining No -Classification - Thickness Full Thickness without Exposed Support Structure -Exudate Amt Small -Exudate Type Serosanguineous -Wound Margin Distinct, Outline Attached -Granulation Amt Small (1-33%) -Granulation Quality Pale -Slough/Fibrin Yes -Necrosis Amt Large (67-100%) -Necrotic Tissue Type Adherent Slough -Texture (Aye-wound Skin Appearance) Assessed Scarring -Moisture (Aye-wound Skin Appearance Assessed ) -Color (Aye-wound Skin Appearance) Assessed Erythema -Temperature (Aye-wound Skin No Abnormality Appearance) (Pt Warm) -Tenderness on Palpation (Aye-wound Yes Skin Appearance) -Ulcer Cleansing Rinsed/ Irrigated with Saline -Foul Odor after Cleansing No -Anesthetic Used 4% Lidocaine Solution [Edema Assessment] -Left Calf (cm) 38.6 -Left Ankle (cm) 23.3 - Nurse 2 - General Ulcer CM Notes Start: 05/20/18 12:21 Freq: Status: Active Protocol: Activity Type Activity Date Activity User E-Sign Co-Sign Detail Recorded Client Recorded Date Recorded By Document 06/04/18 09:51 DV [id number] 06/04/18 09:55 DV 06/04/18 09:51 Wound Center Nurse 2 [Procedure/Treatment] #2 LEFT LOWER LEG -Time 09:52 -Correct Patient Yes -Correct Side, Site, Position Yes -Correct Procedure Yes -Procedure Performed Yes -Type of Procedure Debridement -Clinical Debridement Subcutaneous -Post Debridement Size (cm) - Length 0.8 -Post Debridement Size (cm) - Width 1.0 -Post Debridement Size (cm) - Depth 0.3 -Total Square Cm 0.80 -Wound/Ulcer Outcome Not Healed -Ulcer Cleansing Rinsed/ Irrigated with Saline -Foul Odor after Cleansing No -Bioengineered Tissue No -Bleeding Controlled with Pressure -Offloading No -Treatment Response Procedure Tolerated Well [See Physician Procedure note for Specifics] Pain Scale: 0-10 Numeric [Pain] -Is Patient Pain Free? Yes Musculoskeletal: No Muscle Wasting Neurological: Cranial nerves II-XII grossly intact, Neuro grossly intact Psych/Mental Status: Normal Affect, Appropriate, Alert and oriented to time, place, person, mood and affect Debridement Note Post-Debridement Measurements/Treatment WC - Nurse 2 - General Ulcer CM Notes Start: 05/20/18 12:21 Freq: Status: Active Protocol: Activity Type Activity Date Activity User E-Sign Co-Sign Detail Recorded Client Recorded Date Recorded By Document 05/20/18 12:38 JS [id number] 05/20/18 13:05 JS Document 05/27/18 12:38 DV [id number] 05/27/18 12:41 DV Document 06/04/18 09:51 DV [id number] 06/04/18 09:55 DV 05/20/18 05/27/18 06/04/18 12:38 12:38 09:51 Wound Center Nurse 2 #2 LEFT LOWER LEG -Time 12:39 12:39 09:52 -Correct Patient Yes Yes Yes -Correct Side, Site, Position Yes Yes Yes -Correct Procedure Yes Yes Yes -Procedure Performed Yes Yes Yes -Type of Procedure Debridement Debridement Debridement -Clinical Debridement Subcutaneous Subcutaneous Subcutaneous -Post Debridement Size (cm) - Length 0.6 0.7 0.8 -Post Debridement Size (cm) - Width 0.7 1.0 1.0 -Post Debridement Size (cm) - Depth 0.4 0.4 0.3 -Total Square Cm 0.42 0.70 0.80 -Wound/Ulcer Outcome Amputation Not Healed Not Healed -Ulcer Cleansing Rinsed/ Rinsed/ Rinsed/ Irrigated with Irrigated with Irrigated with Saline Saline Saline -Foul Odor after Cleansing No No No -Bioengineered Tissue No No No -Topical Lidocaine (%) 4 -Lidocaine (ml) 5 -Bleeding Controlled with NA Pressure Pressure -Offloading No No No -Treatment Response Procedure Procedure Procedure Tolerated Well Tolerated Well Tolerated Well Pain Scale: 0-10 Numeric Is Patient Pain Free? Yes Yes Yes Laterality: Left - Medial calf Type of Debridement: Excisional debridement Anesthesia Used: 5% Lidocaine Gel Depth: Down to and including healthy tissue, in the subcutaneous layer Percentage of wound debrided: 100 Instrument Used: 3mm curette Severity: Fat Layer Exposed Amount of bleeding with debridement: Mild Bleeding Controlled with: Compression and gauze Patient tolerated procedure well Assessment/Plan Active Problems Open wound (Chronic) Non-healing wound of lower extremity (Chronic) Chronic venous insufficiency (Chronic) Venous hypertension, chronic, with ulcer and inflammation (Chronic) Venous stasis ulcer (Chronic) Hyperpigmentation (Chronic) Lipodermatosclerosis (Chronic) Assessment: This is a 72-year-old male with a long-standing history of chronic venous insufficiency, venous hypertension with inflammation and ulceration, etc. He presents with an ulceration of the left medial calf, appearing to be related to his chronic venous disease. He is otherwise generally healthy. The patient's recent venous duplex examination reveals incompetence of the left great and small saphenous veins. His noninvasive lower extremity arterial study is normal. Plan: Conservative treatment measures have been implemented. Patient is to continue sleeping on a flat mattress at night. He is to elevate his legs to heart level, or higher, even during daytime hours. Avoidance of idle standing and sitting has been recommended. The patient is to remain active. Activity has been encouraged. Weight loss has been advised. Compression is to be continued by means of graduated compression stockings of 20-30 mmHg compression, which the patient possesses. We are to continue the use of collagenase Santyl topically on a daily basis relative to the small ulceration on the left medial calf. There had been some misunderstandings regarding the use of topical agent for the patient's ulceration. Despite instructions to use collagenase Santyl topically, the patient had not been given the appropriate prescription, and the intended product has not been used. Instead, the patient has been using collagen hydrogel topically on a daily basis. She has now been given a prescription for collagenase Santyl, which will be initiated henceforth. The patient is to return in 1 week for reassessment. We have discussed the possibility of endovenous ablation of the incompetent superficial veins in the left lower extremity, a procedure which may be of benefit at some point in the future. The patient is non-smoker. Influenza vaccine was not administered today. Patient weighs 270 pounds. He stands 6 feet 0 inches in height. BMI is 36.6. This places him in a class II obesity category. Weight loss has been recommended, in collaboration with the patient's primary care physician has been advised.
[2018-06-10 12:21] VITALS: BP 138/69; PULSE 76; RESP 16; TEMP 37; BMI 36.6
--- NOTE | 2018-06-10 12:54 | PCM.WC.HP ---
(1) Open wound Status: Chronic Current Visit: Yes Code(s): T14.8XXA - Other injury of unspecified body region, initial encounter (2) Non-healing wound of lower extremity Status: Chronic Current Visit: Yes Qualifiers: Encounter type: subsequent encounter Laterality: left Qualified Code(s): S81.802D - Unspecified open wound, left lower leg, subsequent encounter Code(s): S81.809A - Unspecified open wound, unspecified lower leg, initial encounter (3) Chronic venous insufficiency Status: Chronic Current Visit: Yes Code(s): I87.2 - Venous insufficiency (chronic) (peripheral) (4) Venous hypertension, chronic, with ulcer and inflammation Status: Chronic Current Visit: Yes Qualifiers: Laterality: left Code(s): I87.339 - Chronic venous hypertension (idiopathic) with ulcer and inflammation of unspecified lower extremity; L97.909 - Non-pressure chronic ulcer of unspecified part of unspecified lower leg with unspecified severity (5) Venous stasis ulcer Status: Chronic Current Visit: Yes Qualifiers: Venous stasis ulcer site: calf Varicose vein presence: with varicose veins Laterality: left Code(s): I83.009 - Varicose veins of unspecified lower extremity with ulcer of unspecified site; L97.909 - Non-pressure chronic ulcer of unspecified part of unspecified lower leg with unspecified severity (6) Hyperpigmentation Status: Chronic Current Visit: Yes Code(s): L81.9 - Disorder of pigmentation, unspecified (7) Lipodermatosclerosis Status: Chronic Current Visit: Yes Code(s): I83.10 - Varicose veins of unspecified lower extremity with inflammation (8) Obesity (BMI 30-39.9) Status: Chronic Current Visit: No Code(s): E66.9 - Obesity, unspecified History of Present Illness Chief Complaint: Chronic venous insufficiency, venous hypertension with inflammation and ulceration, venous stasis ulceration?left medial calf History of Wound: This is a 72-year-old male with an ulceration of the left medial calf, which has been present since February 2018. Patient has a history of chronic venous insufficiency, venous hypertension with inflammation and ulceration, and venous stasis ulceration. He has been treated at the [facility] since February 2018, relative to the ulceration on the left medial calf. It temporarily healed, but recurred within a matter of days. He has previously undergone endothermal ablation of incompetent superficial veins in the right lower extremity, performed in 2012. A venous study performed in April 2013 reveals successful ablation of the right great saphenous vein anterior accessory saphenous veins. In recent months, the patient had been using Shalonda topically to the ulceration on the left medial calf, and had undergone serial debridements. He owns graduated compression stockings of 20-30 mmHg compression, which he typically wears on a daily basis. The patient denies a history of thrombophlebitis. Patient has recently undergone a noninvasive lower extremity arterial study, dated May 10, 2018, which revealed no evidence of significant arterial occlusive disease in the lower extremities. Venous duplex examination revealed valvular incompetence involving the left great saphenous vein and the left small saphenous vein. 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 He also has undergone several anorectal surgical procedures. A sigmoid colon resection was performed in June 2017. Allergies/Adverse Reactions: Allergies amoxicillin [From Augmentin] Adverse Reaction (Verified 07/20/17 22:35) Abd cramps/diarrhea clavulanic acid [From Augmentin] Adverse Reaction (Verified 07/20/17 22:35) Abd cramps/diarrhea ibuprofen [From Motrin] Adverse Reaction (Verified 07/20/17 22:35) Other Home Medications: Ambulatory Orders Medication Instructions Recorded Calcium Citrate - Vit D Tablet 600 mg PO DAILY 07/08/17 Finasteride [Proscar] 5 mg PO QHS 07/08/17 L.acidoph,Paracasei, B.lactis 1 each PO DAILY 07/08/17 [Probiotic] Lorazepam [Ativan] 0.5 mg PO DAILY PRN PRN 07/08/17 Meloxicam [Mobic] 15 mg PO QODAY 07/08/17 Multivit-Min/FA/Lycopen/Lutein 1 tab PO DAILY 07/08/17 [Centrum Silver Men Tablet] Pantoprazole Sodium [Protonix] 40 mg PO QODAY 07/08/17 Tamsulosin HCl [Flomax] 0.4 mg PO DAILY 07/08/17 Oxycodone [Oxyir] 5 mg PO Q4H PRN PRN 7 Days #20 tab 07/14/17 Venlafaxine XR [Effexor Xr] 37.5 mg PO DAILY capsule 07/14/17 - Family History Paternal - - The patient's father at the age of 80 with a history of coronary artery disease. Maternal - - The patient's mother at the age of 90 with a history of renal insufficiency. Smoking Status: Never smoker Tobacco Use: Non-smoker Review of Systems Constitutional: Denies: Chills, Fever, Weight Change Eyes: Denies: Pain, Vision Change HEENT: Denies: Difficulty Hearing, Difficulty Swallowing, Sinus Congestion Cardiovascular: Denies: Chest Pain, Palpitations Respiratory: Denies: Cough, Shortness of Breath Gastrointestinal: Denies: Diarrhea, Nausea, Vomiting Genitourinary: Denies: Dysuria, Hematuria Endocrine: Denies: Heat/ Cold Intolerance, Polydipsia, Polyuria Hematologic/ Lymphatic: Denies: Easy Bruising, Easy Bleeding - Physical Exam Vital Signs Temp Pulse Resp BP 98.6 F 76 16 138/69 H 06/10/18 12:21 06/10/18 12:21 06/10/18 12:21 06/10/18 12:21 General: Alert, Oriented x3, Cooperative, No apparent distress, Well developed, Well nourished HEENT: Atraumatic, PERRLA, EOMI, Normocephalic Oral: Moist Mucosa Neck: No JVD Lungs: Normal air movement Abdomen: Non-Distended Extremities: No clubbing, No cyanosis, No edema, No Calf Tenderness, - - The ulceration located on the left medial calf persists. It is basically pink and healthy in appearance, much healthier in appearance than previously noted. There is only a small amount of bioburden. There is no sign of infection or cellulitis. The chronic changes of hyperpigmentation and lipodermatosclerosis persist. Wound Measurements and Assessment WC - Nurse 1 - General Ulcer Measurement Start: 05/20/18 12:21 Freq: Status: Active Protocol: Activity Type Activity Date Activity User E-Sign Co-Sign Detail Recorded Client Recorded Date Recorded By Document 06/10/18 12:21 [facility] [id number] 06/10/18 12:22 [facility] 06/10/18 12:21 Wound Center Nurse 1 [Ulcer Assessment] #2 LEFT LOWER LEG -Combined with other wound No -Current Size (cm) - Length 0.7 -Current Size (cm) - Width 1 -Current Size (cm) - Depth 0.3 -Total Square Cm 0.7 -Date of Last Picture (Recall this 06/10/18 field) -Photo Taken Yes -Epithelialization None Present -Tunneling No -Undermining/Tunneling No -Circular Undermining No -Exudate Amt None Present -Wound Margin Flat & Intact -Granulation Amt Medium (34-66%) -Granulation Quality Red -Slough/Fibrin Yes -Necrosis Amt Small (1-33%) -Necrotic Tissue Type Adherent Slough -Texture (Aye-wound Skin Appearance) Assessed Scarring -Moisture (Aye-wound Skin Appearance Assessed ) -Color (Aye-wound Skin Appearance) Assessed -Temperature (Aye-wound Skin No Abnormality Appearance) (Pt Warm) -Tenderness on Palpation (Aye-wound No Skin Appearance) -Ulcer Cleansing Rinsed/ Irrigated with Saline -Foul Odor after Cleansing No -Anesthetic Used 4% Lidocaine Solution WC - Nurse 2 - General Ulcer CM Notes Start: 05/20/18 12:21 Freq: Status: Active Protocol: Activity Type Activity Date Activity User E-Sign Co-Sign Detail Recorded Client Recorded Date Recorded By Document 06/10/18 12:48 MW [id number] 06/10/18 12:53 MW 06/10/18 12:48 Wound Center Nurse 2 [Procedure/Treatment] -Time 12:48 -Correct Patient Yes -Correct Side, Site, Position Yes -Correct Procedure Yes -Procedure Performed Yes -Type of Procedure Debridement -Clinical Debridement Subcutaneous -Post Debridement Size (cm) - Length 0.7 -Post Debridement Size (cm) - Width 0.8 -Post Debridement Size (cm) - Depth 0.2 -Total Square Cm 0.56 -Wound/Ulcer Outcome Not Healed -Ulcer Cleansing Rinsed/ Irrigated with Saline -Foul Odor after Cleansing No -Bioengineered Tissue No -Bleeding Controlled with Pressure -Offloading No -Treatment Response Procedure Tolerated Well [See Physician Procedure note for Specifics] Pain Scale: 0-10 Numeric [Pain] -Is Patient Pain Free? Yes Musculoskeletal: No Muscle Wasting Neurological: Cranial nerves II-XII grossly intact, Neuro grossly intact Psych/Mental Status: Normal Affect, Appropriate, Alert and oriented to time, place, person, mood and affect Debridement Note Post-Debridement Measurements/Treatment WC - Nurse 2 - General Ulcer CM Notes Start: 05/20/18 12:21 Freq: Status: Active Protocol: Activity Type Activity Date Activity User E-Sign Co-Sign Detail Recorded Client Recorded Date Recorded By Document 05/20/18 12:38 JS [id number] 05/20/18 13:05 JS Document 05/27/18 12:38 DV [id number] 05/27/18 12:41 DV Document 06/04/18 09:51 DV [id number] 06/04/18 09:55 DV Document 06/10/18 12:48 MW [id number] 06/10/18 12:53 MW 05/20/18 05/27/18 06/04/18 12:38 12:38 09:51 Wound Center Nurse 2 #2 LEFT LOWER LEG -Time 12:39 12:39 09:52 -Correct Patient Yes Yes Yes -Correct Side, Site, Position Yes Yes Yes -Correct Procedure Yes Yes Yes -Procedure Performed Yes Yes Yes -Type of Procedure Debridement Debridement Debridement -Clinical Debridement Subcutaneous Subcutaneous Subcutaneous -Post Debridement Size (cm) - Length 0.6 0.7 0.8 -Post Debridement Size (cm) - Width 0.7 1.0 1.0 -Post Debridement Size (cm) - Depth 0.4 0.4 0.3 -Total Square Cm 0.42 0.70 0.80 -Wound/Ulcer Outcome Amputation Not Healed Not Healed -Ulcer Cleansing Rinsed/ Rinsed/ Rinsed/ Irrigated with Irrigated with Irrigated with Saline Saline Saline -Foul Odor after Cleansing No No No -Bioengineered Tissue No No No -Topical Lidocaine (%) 4 -Lidocaine (ml) 5 -Bleeding Controlled with NA Pressure Pressure -Offloading No No No -Treatment Response Procedure Procedure Procedure Tolerated Well Tolerated Well Tolerated Well Pain Scale: 0-10 Numeric Is Patient Pain Free? Yes Yes Yes 06/10/18 12:48 Wound Center Nurse 2 #2 LEFT LOWER LEG -Time 12:48 -Correct Patient Yes -Correct Side, Site, Position Yes -Correct Procedure Yes -Procedure Performed Yes -Type of Procedure Debridement -Clinical Debridement Subcutaneous -Post Debridement Size (cm) - Length 0.7 -Post Debridement Size (cm) - Width 0.8 -Post Debridement Size (cm) - Depth 0.2 -Total Square Cm 0.56 -Wound/Ulcer Outcome Not Healed -Ulcer Cleansing Rinsed/ Irrigated with Saline -Foul Odor after Cleansing No -Bioengineered Tissue No -Topical Lidocaine (%) -Lidocaine (ml) -Bleeding Controlled with Pressure -Offloading No -Treatment Response Procedure Tolerated Well Pain Scale: 0-10 Numeric Is Patient Pain Free? Yes Laterality: Left - Medial calf Type of Debridement: Excisional debridement Anesthesia Used: 5% Lidocaine Gel Depth: Down to and including healthy tissue, in the subcutaneous layer Percentage of wound debrided: 100 Instrument Used: 3mm curette Severity: Fat Layer Exposed Amount of bleeding with debridement: Mild Bleeding Controlled with: Compression and gauze Patient tolerated procedure well Assessment/Plan Active Problems Open wound (Chronic) Non-healing wound of lower extremity (Chronic) Chronic venous insufficiency (Chronic) Venous hypertension, chronic, with ulcer and inflammation (Chronic) Venous stasis ulcer (Chronic) Hyperpigmentation (Chronic) Lipodermatosclerosis (Chronic) Assessment: This is a 72-year-old male with a long-standing history of chronic venous insufficiency, venous hypertension with inflammation and ulceration, etc. He presents with an ulceration of the left medial calf, appearing to be related to his chronic venous disease. He is otherwise generally healthy. The patient's recent venous duplex examination reveals incompetence of the left great and small saphenous veins. His noninvasive lower extremity arterial study is normal. Plan: Conservative treatment measures have been implemented. Patient is to continue sleeping on a flat mattress at night. He is to elevate his legs to heart level, or higher, even during daytime hours. Avoidance of idle standing and sitting has been recommended. The patient is to remain active. Activity has been encouraged. Weight loss has been advised. Compression is to be continued by means of graduated compression stockings of 20-30 mmHg compression, which the patient possesses. We are to continue the use of collagenase Santyl topically on a daily basis relative to the small ulceration on the left medial calf. The patient indicates that he will be traveling out of town for the next several weeks, so his next appointment will be in 3 weeks. The patient has been granted approval to transition himself from the use of collagenase Santyl to Shalonda, which he possesses, in 1 week, if his ulceration remains pink and healthy in appearance. This transition may prove of benefit in promoting epithelialization. We have discussed the possibility of endovenous ablation of the incompetent superficial veins in the left lower extremity, a procedure which may be of benefit at some point in the future. The patient is non-smoker. Influenza vaccine was not administered today. Patient weighs 270 pounds. He stands 6 feet 0 inches in height. BMI is 36.6. This places him in a class II obesity category. Weight loss has been recommended, in collaboration with the patient's primary care physician has been advised.
== END 2018-06-13 23:59 ==
LOC: WC 12:00
PROVIDERS: Family Provider Family Medicine; PCP Family Medicine; Referring Provider Surgery; Visit Provider Surgery
DX: I83.222 Varicose veins of left lower extremity with both ulcer of calf and inflammation (principal); I73.9 Peripheral vascular disease, unspecified; L97.222 Non-pressure chronic ulcer of left calf with fat layer exposed; E66.9 Obesity, unspecified; Z68.36 Body mass index [BMI] 36.0-36.9, adult; Z71.3 Dietary counseling and surveillance
CPT/HCPCS: 11042; 99213; G0463

== ENCOUNTER 2018-07-08 13:00 | Outpatient (RCR) | payer MEDICARE, SELFPAY ==
[2018-06-14 00:55] VITALS: BP 138/69; PULSE 76; RESP 16; TEMP 37
[2018-07-01 12:28] VITALS: BP 138/77; PULSE 79; RESP 18; TEMP 36.7; BMI 36.6
--- NOTE | 2018-07-01 12:50 | PCM.WC.HP ---
(1) Open wound Status: Chronic Current Visit: Yes Code(s): T14.8XXA - Other injury of unspecified body region, initial encounter (2) Non-healing wound of lower extremity Status: Chronic Current Visit: Yes Qualifiers: Encounter type: subsequent encounter Laterality: left Qualified Code(s): S81.802D - Unspecified open wound, left lower leg, subsequent encounter Code(s): S81.809A - Unspecified open wound, unspecified lower leg, initial encounter (3) Chronic venous insufficiency Status: Chronic Current Visit: Yes Code(s): I87.2 - Venous insufficiency (chronic) (peripheral) (4) Venous hypertension, chronic, with ulcer and inflammation Status: Chronic Current Visit: Yes Qualifiers: Laterality: left Code(s): I87.339 - Chronic venous hypertension (idiopathic) with ulcer and inflammation of unspecified lower extremity; L97.909 - Non-pressure chronic ulcer of unspecified part of unspecified lower leg with unspecified severity (5) Venous stasis ulcer Status: Chronic Current Visit: Yes Qualifiers: Venous stasis ulcer site: calf Laterality: left Code(s): I83.009 - Varicose veins of unspecified lower extremity with ulcer of unspecified site; L97.909 - Non-pressure chronic ulcer of unspecified part of unspecified lower leg with unspecified severity (6) Hyperpigmentation Status: Chronic Current Visit: Yes Code(s): L81.9 - Disorder of pigmentation, unspecified (7) Lipodermatosclerosis Status: Chronic Current Visit: Yes Qualifiers: Laterality: bilateral Qualified Code(s): I83.11 - Varicose veins of right lower extremity with inflammation; I83.12 - Varicose veins of left lower extremity with inflammation Code(s): I83.10 - Varicose veins of unspecified lower extremity with inflammation (8) Obesity (BMI 30-39.9) Status: Chronic Current Visit: No Code(s): E66.9 - Obesity, unspecified History of Present Illness Chief Complaint: Chronic venous insufficiency, venous hypertension with inflammation and ulceration, venous stasis ulceration?left medial calf History of Wound: This is a 72-year-old male with an ulceration of the left medial calf, which has been present since February 2018. Patient has a history of chronic venous insufficiency, venous hypertension with inflammation and ulceration, and venous stasis ulceration. He has been treated at the [facility] since February 2018, relative to the ulceration on the left medial calf. It temporarily healed, but recurred within a matter of days. He has previously undergone endothermal ablation of incompetent superficial veins in the right lower extremity, performed in 2012. A venous study performed in April 2013 reveals successful ablation of the right great saphenous vein anterior accessory saphenous veins. In recent months, the patient had been using Shalonda topically to the ulceration on the left medial calf, and had undergone serial debridements. He owns graduated compression stockings of 20-30 mmHg compression, which he typically wears on a daily basis. The patient denies a history of thrombophlebitis. Patient has recently undergone a noninvasive lower extremity arterial study, dated May 10, 2018, which revealed no evidence of significant arterial occlusive disease in the lower extremities. Venous duplex examination revealed valvular incompetence involving the left great saphenous vein and the left small saphenous vein. 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 He also has undergone several anorectal surgical procedures. A sigmoid colon resection was performed in June 2017. Allergies/Adverse Reactions: Allergies amoxicillin [From Augmentin] Adverse Reaction (Verified 07/20/17 22:35) Abd cramps/diarrhea clavulanic acid [From Augmentin] Adverse Reaction (Verified 07/20/17 22:35) Abd cramps/diarrhea ibuprofen [From Motrin] Adverse Reaction (Verified 07/20/17 22:35) Other Home Medications: Ambulatory Orders Medication Instructions Recorded Calcium Citrate - Vit D Tablet 600 mg PO DAILY 07/08/17 Finasteride [Proscar] 5 mg PO QHS 07/08/17 L.acidoph,Paracasei, B.lactis 1 each PO DAILY 07/08/17 [Probiotic] Lorazepam [Ativan] 0.5 mg PO DAILY PRN PRN 07/08/17 Meloxicam [Mobic] 15 mg PO QODAY 07/08/17 Multivit-Min/FA/Lycopen/Lutein 1 tab PO DAILY 07/08/17 [Centrum Silver Men Tablet] Pantoprazole Sodium [Protonix] 40 mg PO QODAY 07/08/17 Tamsulosin HCl [Flomax] 0.4 mg PO DAILY 07/08/17 Oxycodone [Oxyir] 5 mg PO Q4H PRN PRN 7 Days #20 tab 07/14/17 Venlafaxine XR [Effexor Xr] 37.5 mg PO DAILY capsule 07/14/17 - Family History Paternal - - The patient's father at the age of 80 with a history of coronary artery disease. Maternal - - The patient's mother at the age of 90 with a history of renal insufficiency. Smoking Status: Never smoker Tobacco Use: Non-smoker Review of Systems Constitutional: Denies: Chills, Fever, Weight Change Eyes: Denies: Pain, Vision Change HEENT: Denies: Difficulty Hearing, Difficulty Swallowing, Sinus Congestion Cardiovascular: Denies: Chest Pain, Palpitations Respiratory: Denies: Cough, Shortness of Breath Gastrointestinal: Denies: Diarrhea, Nausea, Vomiting Genitourinary: Denies: Dysuria, Hematuria Endocrine: Denies: Heat/ Cold Intolerance, Polydipsia, Polyuria Hematologic/ Lymphatic: Denies: Easy Bruising, Easy Bleeding - Physical Exam Vital Signs Temp Pulse Resp BP 98.0 F 79 18 138/77 H 07/01/18 12:28 07/01/18 12:28 07/01/18 12:28 07/01/18 12:28 General: Alert, Oriented x3, Cooperative, No apparent distress, Well developed, Well nourished HEENT: Atraumatic, PERRLA, EOMI, Normocephalic Oral: Moist Mucosa Neck: No JVD Lungs: Normal air movement Abdomen: Non-Distended Extremities: No clubbing, No cyanosis, No edema, No Calf Tenderness, - - The left medial calf ulceration persists. It is little changed in size or appearance. There is a moderate amount of bioburden. There is no sign of infection or cellulitis. Chronic changes in the lower extremities persist, namely hyperpigmentation and lipodermatosclerosis. Wound Measurements and Assessment WC - Nurse 1 - General Ulcer Measurement Start: 07/01/18 12:28 Freq: Status: Active Protocol: Activity Type Activity Date Activity User E-Sign Co-Sign Detail Recorded Client Recorded Date Recorded By Document 07/01/18 12:28 AN [id number] 07/01/18 12:35 AN 07/01/18 12:28 Wound Center Nurse 1 [Ulcer Assessment] #2 LEFT LOWER LEG -Current Size (cm) - Length 0.8 -Current Size (cm) - Width 0.7 -Current Size (cm) - Depth 0.2 -Total Square Cm 0.56 -Epithelialization None Present -Tunneling No -Undermining/Tunneling No -Classification - Thickness Full Thickness without Exposed Support Structure -Exudate Amt Small -Exudate Type Serosanguineous -Wound Margin Distinct, Outline Attached -Granulation Amt Small (1-33%) -Granulation Quality Red -Slough/Fibrin Yes -Necrosis Amt Large (67-100%) -Necrotic Tissue Type Adherent Slough -Structure Exposed None/Limited to Skin Breakdown -Texture (Aye-wound Skin Appearance) Assessed Callus -Moisture (Aye-wound Skin Appearance Assessed ) -Color (Aye-wound Skin Appearance) Assessed -Temperature (Aye-wound Skin No Abnormality Appearance) (Pt Warm) -Tenderness on Palpation (Aye-wound No Skin Appearance) -Ulcer Cleansing Rinsed/ Irrigated with Saline -Foul Odor after Cleansing No -Anesthetic Used 5% Lidocaine Gel - Nurse 2 - General Ulcer CM Notes Start: 07/01/18 12:28 Freq: Status: Active Protocol: Activity Type Activity Date Activity User E-Sign Co-Sign Detail Recorded Client Recorded Date Recorded By Document 07/01/18 12:47 DV [id number] 07/01/18 12:48 DV 07/01/18 12:47 Wound Center Nurse 2 [Procedure/Treatment] -Time 12:47 -Correct Patient Yes -Correct Side, Site, Position Yes -Correct Procedure Yes -Procedure Performed Yes -Type of Procedure Debridement -Clinical Debridement Subcutaneous -Post Debridement Size (cm) - Length 0.6 -Post Debridement Size (cm) - Width 0.7 -Post Debridement Size (cm) - Depth 0.2 -Total Square Cm 0.42 -Wound/Ulcer Outcome Not Healed -Ulcer Cleansing Rinsed/ Irrigated with Saline -Foul Odor after Cleansing No -Bioengineered Tissue No -Bleeding Controlled with Pressure -Offloading No -Treatment Response Procedure Tolerated Well [See Physician Procedure note for Specifics] Pain Scale: 0-10 Numeric [Pain] -Is Patient Pain Free? Yes Musculoskeletal: No Muscle Wasting Neurological: Cranial nerves II-XII grossly intact, Neuro grossly intact Psych/Mental Status: Normal Affect, Appropriate, Alert and oriented to time, place, person, mood and affect Debridement Note Post-Debridement Measurements/Treatment WC - Nurse 2 - General Ulcer CM Notes Start: 07/01/18 12:28 Freq: Status: Active Protocol: Activity Type Activity Date Activity User E-Sign Co-Sign Detail Recorded Client Recorded Date Recorded By Document 07/01/18 12:47 DV [id number] 07/01/18 12:48 DV 07/01/18 12:47 Wound Center Nurse 2 #2 LEFT LOWER LEG -Time 12:47 -Correct Patient Yes -Correct Side, Site, Position Yes -Correct Procedure Yes -Procedure Performed Yes -Type of Procedure Debridement -Clinical Debridement Subcutaneous -Post Debridement Size (cm) - Length 0.6 -Post Debridement Size (cm) - Width 0.7 -Post Debridement Size (cm) - Depth 0.2 -Total Square Cm 0.42 -Wound/Ulcer Outcome Not Healed -Ulcer Cleansing Rinsed/ Irrigated with Saline -Foul Odor after Cleansing No -Bioengineered Tissue No -Bleeding Controlled with Pressure -Offloading No -Treatment Response Procedure Tolerated Well Pain Scale: 0-10 Numeric Is Patient Pain Free? Yes Laterality: Left - Medial calf Type of Debridement: Excisional debridement Anesthesia Used: 5% Lidocaine Gel Depth: Down to and including healthy tissue, in the subcutaneous layer Percentage of wound debrided: 100 Instrument Used: 3mm curette Severity: Fat Layer Exposed Amount of bleeding with debridement: Mild Bleeding Controlled with: Compression and gauze Patient tolerated procedure well Assessment/Plan Active Problems Open wound (Chronic) Non-healing wound of lower extremity (Chronic) Chronic venous insufficiency (Chronic) Venous hypertension, chronic, with ulcer and inflammation (Chronic) Venous stasis ulcer (Chronic) Hyperpigmentation (Chronic) Lipodermatosclerosis (Chronic) Assessment: This is a 72-year-old male with a long-standing history of chronic venous insufficiency, venous hypertension with inflammation and ulceration, etc. He presents with an ulceration of the left medial calf, appearing to be related to his chronic venous disease. He is otherwise generally healthy. The patient's recent venous duplex examination reveals incompetence of the left great and small saphenous veins. His noninvasive lower extremity arterial study is normal. Plan: Conservative treatment measures have been implemented. Patient is to continue sleeping on a flat mattress at night. He is to elevate his legs to heart level, or higher, even during daytime hours. Avoidance of idle standing and sitting has been recommended. The patient is to remain active. Activity has been encouraged. Weight loss has been advised. Compression is to be continued by means of graduated compression stockings of 20-30 mmHg compression, which the patient possesses. We are to continue the use of Shalonda topically, on a daily basis. We have considered the use of skin graft substitutes, but the small size of the patient's current ulceration appears to reduce the likelihood of achieving preauthorization. Therefore, we are to implement the use of Promogran topically. We have discussed the possibility of endovenous ablation of the incompetent superficial veins in the left lower extremity, a procedure which may be of benefit at some point in the future. The patient is non-smoker. Influenza vaccine was not administered today. Patient weighs 270 pounds. He stands 6 feet 0 inches in height. BMI is 36.6. This places him in a class II obesity category. Weight loss has been recommended, in collaboration with the patient's primary care physician has been advised.
[2018-07-08 13:07] VITALS: BP 134/75; PULSE 106; RESP 18; TEMP 36.9; BMI 36.6
--- NOTE | 2018-07-08 13:50 | TISS_PTH ---
PATIENT: JAHAIRA MAYORGA LOC: U#:[id number] AGE/SX: 72/M ROOM: RE07/08/[address]: Dr. Sourav Jurado MD : [id number] BED: DIS: 07/11/2018 SPEC #: [id number] RECD: 07/08/18 14:49 STATUS: DANITA VETO #: [id number] NICHOLAS: 07/08/18 13:[address]: Sourav Jurado DEPT: SURGICAL PATHOLOGY RECD BY: Simon Melgar ENTERED: 07/08/18 15:03 SP TYPE: Tissue Bx HAI DR: Dr. Antonio Rangel MD Tissues: Left leg Procedures: Surgery Specimen Level IV HEADER OPERATION: Excisional tissue biopsy from LLE ulcer PRE-OP DIAGNOSIS: Nonhealing ulcer >6 month; history of NLD TISSUE SUBMITTED: Tissue biopsy of LLE ulcer MICROSCOPIC DIAGNOSIS LLE ulcer, tissue biopsy: Pieces of skin with underlying tissue with chronic inflammation, granulation tissue reaction and hyperkeratosis. Negative for malignancy. RAAD:wesley 07/09/18 MICROSCOPIC DESCRIPTION Slides are reviewed. GROSS DESCRIPTION Received in fixative is one container labeled with the patient's name and designated tissue from [facility]. The specimen consists of two pieces of bradford soft tissue measuring in aggregate 0.7 x 0.3 x 0.2 cm. The specimen is totally submitted in one cassette. / RAAD:wesley 07/08/18 TC:3 CPT: 63663
--- NOTE | 2018-07-08 13:58 | PCM.WC.HP ---
(1) Open wound Status: Chronic Current Visit: Yes Code(s): T14.8XXA - Other injury of unspecified body region, initial encounter (2) Non-healing wound of lower extremity Status: Chronic Current Visit: Yes Qualifiers: Encounter type: subsequent encounter Laterality: left Qualified Code(s): S81.802D - Unspecified open wound, left lower leg, subsequent encounter Code(s): S81.809A - Unspecified open wound, unspecified lower leg, initial encounter (3) Chronic venous insufficiency Status: Chronic Current Visit: Yes Code(s): I87.2 - Venous insufficiency (chronic) (peripheral) (4) Venous hypertension, chronic, with ulcer and inflammation Status: Chronic Current Visit: Yes Qualifiers: Laterality: left Code(s): I87.339 - Chronic venous hypertension (idiopathic) with ulcer and inflammation of unspecified lower extremity; L97.909 - Non-pressure chronic ulcer of unspecified part of unspecified lower leg with unspecified severity (5) Venous stasis ulcer Status: Chronic Current Visit: Yes Qualifiers: Venous stasis ulcer site: calf Laterality: left Code(s): I83.009 - Varicose veins of unspecified lower extremity with ulcer of unspecified site; L97.909 - Non-pressure chronic ulcer of unspecified part of unspecified lower leg with unspecified severity (6) Hyperpigmentation Status: Chronic Current Visit: Yes Code(s): L81.9 - Disorder of pigmentation, unspecified (7) Lipodermatosclerosis Status: Chronic Current Visit: Yes Qualifiers: Laterality: bilateral Qualified Code(s): I83.11 - Varicose veins of right lower extremity with inflammation; I83.12 - Varicose veins of left lower extremity with inflammation Code(s): I83.10 - Varicose veins of unspecified lower extremity with inflammation (8) Obesity (BMI 30-39.9) Status: Chronic Current Visit: No Code(s): E66.9 - Obesity, unspecified History of Present Illness Chief Complaint: Chronic venous insufficiency, venous hypertension with inflammation and ulceration, venous stasis ulceration?left medial calf History of Wound: This is a 72-year-old male with an ulceration of the left medial calf, which has been present since February 2018. Patient has a history of chronic venous insufficiency, venous hypertension with inflammation and ulceration, and venous stasis ulceration. He has been treated at the [facility] since February 2018, relative to the ulceration on the left medial calf. It temporarily healed, but recurred within a matter of days. He has previously undergone endothermal ablation of incompetent superficial veins in the right lower extremity, performed in 2012. A venous study performed in April 2013 reveals successful ablation of the right great saphenous vein anterior accessory saphenous veins. In recent months, the patient had been using Shalonda topically to the ulceration on the left medial calf, and had undergone serial debridements. He owns graduated compression stockings of 20-30 mmHg compression, which he typically wears on a daily basis. The patient denies a history of thrombophlebitis. Patient has recently undergone a noninvasive lower extremity arterial study, dated May 10, 2018, which revealed no evidence of significant arterial occlusive disease in the lower extremities. Venous duplex examination revealed valvular incompetence involving the left great saphenous vein and the left small saphenous vein. 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 He also has undergone several anorectal surgical procedures. A sigmoid colon resection was performed in June 2017. Allergies/Adverse Reactions: Allergies amoxicillin [From Augmentin] Adverse Reaction (Verified 07/20/17 22:35) Abd cramps/diarrhea clavulanic acid [From Augmentin] Adverse Reaction (Verified 07/20/17 22:35) Abd cramps/diarrhea ibuprofen [From Motrin] Adverse Reaction (Verified 07/20/17 22:35) Other Home Medications: Ambulatory Orders Medication Instructions Recorded Calcium Citrate - Vit D Tablet 600 mg PO DAILY 07/08/17 Finasteride [Proscar] 5 mg PO QHS 07/08/17 L.acidoph,Paracasei, B.lactis 1 each PO DAILY 07/08/17 [Probiotic] Lorazepam [Ativan] 0.5 mg PO DAILY PRN PRN 07/08/17 Meloxicam [Mobic] 15 mg PO QODAY 07/08/17 Multivit-Min/FA/Lycopen/Lutein 1 tab PO DAILY 07/08/17 [Centrum Silver Men Tablet] Pantoprazole Sodium [Protonix] 40 mg PO QODAY 07/08/17 Tamsulosin HCl [Flomax] 0.4 mg PO DAILY 07/08/17 Oxycodone [Oxyir] 5 mg PO Q4H PRN PRN 7 Days #20 tab 07/14/17 Venlafaxine XR [Effexor Xr] 37.5 mg PO DAILY capsule 07/14/17 - Family History Paternal - - The patient's father at the age of 80 with a history of coronary artery disease. Maternal - - The patient's mother at the age of 90 with a history of renal insufficiency. Smoking Status: Never smoker Tobacco Use: Non-smoker Review of Systems Constitutional: Denies: Chills, Fever, Weight Change Eyes: Denies: Pain, Vision Change HEENT: Denies: Difficulty Hearing, Difficulty Swallowing, Sinus Congestion Cardiovascular: Denies: Chest Pain, Palpitations Respiratory: Denies: Cough, Shortness of Breath Gastrointestinal: Denies: Diarrhea, Nausea, Vomiting Genitourinary: Denies: Dysuria, Hematuria Endocrine: Denies: Heat/ Cold Intolerance, Polydipsia, Polyuria Hematologic/ Lymphatic: Denies: Easy Bruising, Easy Bleeding - Physical Exam Vital Signs Temp Pulse Resp BP 98.4 F 106 H 18 134/75 H 07/08/18 13:07 07/08/18 13:07 07/08/18 13:07 07/08/18 13:07 General: Alert, Oriented x3, Cooperative, No apparent distress, Well developed, Well nourished HEENT: Atraumatic, PERRLA, EOMI, Normocephalic Oral: Moist Mucosa Neck: No JVD Lungs: Normal air movement Abdomen: Non-Distended Extremities: No clubbing, No cyanosis, No edema, No Calf Tenderness, - - There is no significant swelling or edema in the lower extremities. The ulceration on the left medial calf persists, little changed in size or appearance. There is some depth. Dimensions are documented elsewhere. There is no sign of infection or cellulitis. There is a mild amount of bioburden. Chronic hyperpigmentation is also noted in the area of the ulceration. Wound Measurements and Assessment WC - Nurse 1 - General Ulcer Measurement Start: 07/01/18 12:28 Freq: Status: Active Protocol: Activity Type Activity Date Activity User E-Sign Co-Sign Detail Recorded Client Recorded Date Recorded By Document 07/08/18 13:07 AN [id number] 07/08/18 13:22 AN 07/08/18 13:07 Wound Center Nurse 1 [Ulcer Assessment] #2 LEFT LOWER LEG -Current Size (cm) - Length 0.7 -Current Size (cm) - Width 0.8 -Current Size (cm) - Depth 0.1 -Total Square Cm 0.56 -Photo Taken No -Tunneling No -Circular Undermining No -Classification - Thickness Full Thickness without Exposed Support Structure -Exudate Amt Small -Exudate Type Serous -Wound Margin Distinct, Outline Attached -Granulation Amt Small (1-33%) -Granulation Quality Pale Stewardson -Slough/Fibrin Yes -Necrosis Amt Large (67-100%) -Necrotic Tissue Type Adherent Slough -Structure Exposed None/Limited to Skin Breakdown -Texture (Aye-wound Skin Appearance) Assessed Scarring -Moisture (Aye-wound Skin Appearance Assessed ) -Color (Aye-wound Skin Appearance) Assessed Hemosiderin Staining -Temperature (Aye-wound Skin No Abnormality Appearance) (Pt Warm) -Tenderness on Palpation (Aye-wound No Skin Appearance) -Ulcer Cleansing Rinsed/ Irrigated with Saline -Foul Odor after Cleansing No -Anesthetic Used 5% Lidocaine Gel [Edema Assessment] -Left Calf (cm) 38 -Left Ankle (cm) 23.1 - Nurse 2 - General Ulcer CM Notes Start: 07/01/18 12:28 Freq: Status: Active Protocol: Activity Type Activity Date Activity User E-Sign Co-Sign Detail Recorded Client Recorded Date Recorded By Document 07/08/18 13:38 DV [id number] 07/08/18 13:54 DV 07/08/18 13:38 Wound Center Nurse 2 [Procedure/Treatment] #2 LEFT LOWER LEG -Time 13:39 -Correct Patient Yes -Correct Side, Site, Position Yes -Correct Procedure Yes -Procedure Performed Yes -Type of Procedure Debridement -Clinical Debridement Subcutaneous -Post Debridement Size (cm) - Length 0.8 -Post Debridement Size (cm) - Width 0.8 -Post Debridement Size (cm) - Depth 0.3 -Total Square Cm 0.64 -Wound/Ulcer Outcome Not Healed -Ulcer Cleansing Rinsed/ Irrigated with Saline -Foul Odor after Cleansing No -Bioengineered Tissue No -Bleeding Controlled with Pressure -Offloading No -Treatment Response Procedure Tolerated Well [See Physician Procedure note for Specifics] Pain Scale: 0-10 Numeric [Pain] -Is Patient Pain Free? Yes Musculoskeletal: No Muscle Wasting Neurological: Cranial nerves II-XII grossly intact, Neuro grossly intact Psych/Mental Status: Normal Affect, Appropriate, Alert and oriented to time, place, person, mood and affect Debridement Note Post-Debridement Measurements/Treatment WC - Nurse 2 - General Ulcer CM Notes Start: 07/01/18 12:28 Freq: Status: Active Protocol: Activity Type Activity Date Activity User E-Sign Co-Sign Detail Recorded Client Recorded Date Recorded By Document 07/01/18 12:47 DV [id number] 07/01/18 12:48 DV Document 07/08/18 13:38 DV [id number] 07/08/18 13:54 DV 07/01/18 07/08/18 12:47 13:38 Wound Center Nurse 2 #2 LEFT LOWER LEG -Time 12:47 13:39 -Correct Patient Yes Yes -Correct Side, Site, Position Yes Yes -Correct Procedure Yes Yes -Procedure Performed Yes Yes -Type of Procedure Debridement Debridement -Clinical Debridement Subcutaneous Subcutaneous -Post Debridement Size (cm) - Length 0.6 0.8 -Post Debridement Size (cm) - Width 0.7 0.8 -Post Debridement Size (cm) - Depth 0.2 0.3 -Total Square Cm 0.42 0.64 -Wound/Ulcer Outcome Not Healed Not Healed -Ulcer Cleansing Rinsed/ Rinsed/ Irrigated with Irrigated with Saline Saline -Foul Odor after Cleansing No No -Bioengineered Tissue No No -Bleeding Controlled with Pressure Pressure -Offloading No No -Treatment Response Procedure Procedure Tolerated Well Tolerated Well Pain Scale: 0-10 Numeric Is Patient Pain Free? Yes Yes Laterality: Left - Medial calf Type of Debridement: Excisional debridement Anesthesia Used: 5% Lidocaine Gel Depth: Down to and including healthy tissue, in the subcutaneous layer Percentage of wound debrided: 100 Instrument Used: 5mm curette Severity: Fat Layer Exposed Amount of bleeding with debridement: Mild Bleeding Controlled with: Compression and gauze Patient tolerated procedure well Following the routine excisional debridement, biopsies of the patient's ulceration/wound were obtained. Initially, lidocaine with epinephrine was injected subcutaneously following a prep of alcohol topically. A sterile 3 mm punch was then used to obtain 2 specimens at the wound margin for biopsy/pathology purposes. The specimens, once obtained, were placed within formalin, to be sent to the Pathology department for histology. Assessment/Plan Active Problems Open wound (Chronic) Non-healing wound of lower extremity (Chronic) Chronic venous insufficiency (Chronic) Venous hypertension, chronic, with ulcer and inflammation (Chronic) Venous stasis ulcer (Chronic) Hyperpigmentation (Chronic) Lipodermatosclerosis (Chronic) Assessment: This is a 72-year-old male with a long-standing history of chronic venous insufficiency, venous hypertension with inflammation and ulceration, etc. He presents with an ulceration of the left medial calf, appearing to be related to his chronic venous disease. He is otherwise generally healthy. The patient's recent venous duplex examination reveals incompetence of the left great and small saphenous veins. His noninvasive lower extremity arterial study is normal. Plan: Conservative treatment measures have been implemented. Patient is to continue sleeping on a flat mattress at night. He is to elevate his legs to heart level, or higher, even during daytime hours. Avoidance of idle standing and sitting has been recommended. The patient is to remain active. Activity has been encouraged. Weight loss has been advised. Compression is to be continued by means of graduated compression stockings of 20-30 mmHg compression, which the patient possesses. We are to continue the use of Promogran topically on a daily basis. We have considered the use of skin graft substitutes, but the small size of the patient's current ulceration appears to reduce the likelihood of achieving preauthorization. We have again discussed the possibility of endovenous ablation of the incompetent superficial veins in the left lower extremity, a procedure which may be of benefit. We have also discussed the potential benefits of VenaSeal, venous ablation technique using a medical adhesive. Both thermal ablation and VenaSeal have been explained in detail. The indications and risks of the procedure have been discussed in detail. Appropriate expectations also been explained. The patient indicates his desire to proceed, and preauthorization will be undertaken as a prelude to likely intervention. We will await the results of the patient's biopsy results. The patient is non-smoker. Influenza vaccine was not administered today. Patient weighs 270 pounds. He stands 6 feet 0 inches in height. BMI is 36.6. This places him in a class II obesity category. Weight loss has been recommended, in collaboration with the patient's primary care physician has been advised.
== END 2018-07-11 23:59 ==
LOC: WC 13:00
PROVIDERS: Family Provider Family Medicine; PCP Family Medicine; Referring Provider Surgery; Visit Provider Surgery
DX: I83.222 Varicose veins of left lower extremity with both ulcer of calf and inflammation (principal); E66.9 Obesity, unspecified; Z68.36 Body mass index [BMI] 36.0-36.9, adult; Z71.3 Dietary counseling and surveillance; Z79.899 Other long term (current) drug therapy; L97.222 Non-pressure chronic ulcer of left calf with fat layer exposed
CPT/HCPCS: 11042; 11104; 88305; 99213; G0463

== ENCOUNTER 2018-08-06 09:00 | Outpatient (RCR) | payer MEDICARE, SELFPAY ==
[2018-07-12 00:46] VITALS: BP 134/75; PULSE 106; RESP 18; TEMP 36.9
[2018-07-15 12:22] VITALS: BP 151/79; PULSE 83; RESP 16; TEMP 36.7; BMI 36.6
--- NOTE | 2018-07-15 13:10 | HP.PCM_ITS ---
(1) Peripheral vascular disease of lower extremity with ulceration Status: Chronic Current Visit: Yes Code(s): I73.9 - Peripheral vascular disease, unspecified; L97.909 - Non-pressure chronic ulcer of unspecified part of unspecified lower leg with unspecified severity (2) Open wound Status: Chronic Current Visit: Yes Code(s): T14.8XXA - Other injury of unspecified body region, initial encounter (3) Non-healing wound of lower extremity Status: Chronic Current Visit: Yes Qualifiers: Encounter type: subsequent encounter Laterality: left Qualified Code(s): S81.802D - Unspecified open wound, left lower leg, subsequent encounter Code(s): S81.809A - Unspecified open wound, unspecified lower leg, initial encounter (4) Chronic venous insufficiency Status: Chronic Current Visit: Yes Code(s): I87.2 - Venous insufficiency (chronic) (peripheral) (5) Venous hypertension, chronic, with ulcer and inflammation Status: Chronic Current Visit: Yes Qualifiers: Laterality: left Code(s): I87.339 - Chronic venous hypertension (idiopathic) with ulcer and inflammation of unspecified lower extremity; L97.909 - Non-pressure chronic ulcer of unspecified part of unspecified lower leg with unspecified severity (6) Venous stasis ulcer Status: Chronic Current Visit: Yes Qualifiers: Venous stasis ulcer site: calf Varicose vein presence: without varicose veins Laterality: left Code(s): I83.009 - Varicose veins of unspecified lower extremity with ulcer of unspecified site; L97.909 - Non-pressure chronic ulcer of unspecified part of unspecified lower leg with unspecified severity (7) Hyperpigmentation Status: Chronic Current Visit: Yes Code(s): L81.9 - Disorder of pigmentation, unspecified (8) Lipodermatosclerosis Status: Chronic Current Visit: Yes Qualifiers: Code(s): I83.10 - Varicose veins of unspecified lower extremity with inflammation (9) Obesity (BMI 30-39.9) Status: Chronic Current Visit: No Code(s): E66.9 - Obesity, unspecified History of Present Illness Chief Complaint: Chronic venous insufficiency, venous hypertension with inflammation and ulceration, venous stasis ulceration?left medial calf History of Wound: This is a 72-year-old male with an ulceration of the left medial calf, which has been present since February 2018. Patient has a history of chronic venous insufficiency, venous hypertension with inflammation and ulceration, and venous stasis ulceration. He has been treated at the [facility] since February 2018, relative to the ulceration on the left medial calf. It temporarily healed, but recurred within a matter of days. He has previously undergone endothermal ablation of incompetent superficial veins in the right lower extremity, performed in 2012. A venous study performed in April 2013 reveals successful ablation of the right great saphenous vein anterior accessory saphenous veins. In recent months, the patient had been using Shalonda topically to the ulceration on the left medial calf, and had undergone serial debridements. He owns graduated compression stockings of 20-30 mmHg compression, which he typically wears on a daily basis. The patient denies a history of thrombophlebitis. Patient has recently undergone a noninvasive lower extremity arterial study, dated May 10, 2018, which revealed no evidence of significant arterial occlusive disease in the lower extremities. Venous duplex examination revealed valvular incompetence involving the left great saphenous vein and the left small saphenous vein. 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 He also has undergone several anorectal surgical procedures. A sigmoid colon resection was performed in June 2017. Allergies/Adverse Reactions: Allergies amoxicillin [From Augmentin] Adverse Reaction (Verified 07/20/17 22:35) Abd cramps/diarrhea clavulanic acid [From Augmentin] Adverse Reaction (Verified 07/20/17 22:35) Abd cramps/diarrhea ibuprofen [From Motrin] Adverse Reaction (Verified 07/20/17 22:35) Other Home Medications: Ambulatory Orders Medication Instructions Recorded Calcium Citrate - Vit D Tablet 600 mg PO DAILY 07/08/17 Finasteride [Proscar] 5 mg PO QHS 07/08/17 L.acidoph,Paracasei, B.lactis 1 each PO DAILY 07/08/17 [Probiotic] Lorazepam [Ativan] 0.5 mg PO DAILY PRN PRN 07/08/17 Meloxicam [Mobic] 15 mg PO QODAY 07/08/17 Multivit-Min/FA/Lycopen/Lutein 1 tab PO DAILY 07/08/17 [Centrum Silver Men Tablet] Pantoprazole Sodium [Protonix] 40 mg PO QODAY 07/08/17 Tamsulosin HCl [Flomax] 0.4 mg PO DAILY 07/08/17 Oxycodone [Oxyir] 5 mg PO Q4H PRN PRN 7 Days #20 tab 07/14/17 Venlafaxine XR [Effexor Xr] 37.5 mg PO DAILY capsule 07/14/17 - Family History Paternal - - The patient's father at the age of 80 with a history of coronary artery disease. Maternal - - The patient's mother at the age of 90 with a history of renal insufficiency. Smoking Status: Never smoker Tobacco Use: Non-smoker Review of Systems Constitutional: Denies: Chills, Fever, Weight Change Eyes: Denies: Pain, Vision Change HEENT: Denies: Difficulty Hearing, Difficulty Swallowing, Sinus Congestion Cardiovascular: Denies: Chest Pain, Palpitations Respiratory: Denies: Cough, Shortness of Breath Gastrointestinal: Denies: Diarrhea, Nausea, Vomiting Genitourinary: Denies: Dysuria, Hematuria Endocrine: Denies: Heat/ Cold Intolerance, Polydipsia, Polyuria Hematologic/ Lymphatic: Denies: Easy Bruising, Easy Bleeding - Physical Exam Vital Signs Temp Pulse Resp BP 98.0 F 83 16 151/79 H 07/15/18 12:22 07/15/18 12:22 07/15/18 12:22 07/15/18 12:22 General: Alert, Oriented x3, Cooperative, No apparent distress, Well developed, Well nourished HEENT: Atraumatic, PERRLA, EOMI, Normocephalic Oral: Moist Mucosa Neck: No JVD Lungs: Normal air movement Abdomen: Non-Distended Extremities: No clubbing, No cyanosis, No edema, No Calf Tenderness, - - There is no significant swelling or edema in the patient's left lower extremity. The ulceration on the left medial calf appears to be improved, and somewhat smaller. Mentions are documented elsewhere. There is no sign of infection or cellulitis. There is evidence of epithelialization and healthy granulation tissue. There is only a small amount of bioburden. Skin: No rashes Wound Measurements and Assessment WC - Nurse 1 - General Ulcer Measurement Start: 07/15/18 12:22 Freq: Status: Active Protocol: Activity Type Activity Date Activity User E-Sign Co-Sign Detail Recorded Client Recorded Date Recorded By Document 07/15/18 12:22 MW [id number] 07/15/18 12:28 MW 07/15/18 12:22 Wound Center Nurse 1 [Ulcer Assessment] #2 LEFT LOWER LEG -Combined with other wound No -Current Size (cm) - Length 0.5 -Current Size (cm) - Width 0.7 -Current Size (cm) - Depth 0.1 -Total Square Cm 0.35 -Photo Taken Yes -Epithelialization Small 1-33% -Tunneling No -Undermining/Tunneling No -Circular Undermining No -Exudate Amt None Present -Wound Margin Flat & Intact -Granulation Amt None Present (0 %) -Slough/Fibrin Yes -Necrosis Amt Large (67-100%) -Necrotic Tissue Type Adherent Slough -Structure Exposed N/A -Texture (Aye-wound Skin Appearance) Assessed Localized Edema Scarring -Moisture (Aye-wound Skin Appearance Assessed ) -Color (Aye-wound Skin Appearance) Assessed -Temperature (Aye-wound Skin No Abnormality Appearance) (Pt Warm) -Tenderness on Palpation (Aye-wound No Skin Appearance) -Ulcer Cleansing SOAP AND WATER -Foul Odor after Cleansing No -Anesthetic Used 5% Lidocaine Gel [Edema Assessment] -Lower Limb Edema Present Yes -Left Calf (cm) 39.0 -Left Ankle (cm) 23.7 WC - Nurse 2 - General Ulcer CM Notes Start: 07/15/18 12:22 Freq: Status: Active Protocol: Activity Type Activity Date Activity User E-Sign Co-Sign Detail Recorded Client Recorded Date Recorded By Document 07/15/18 12:52 DV [id number] 07/15/18 12:59 DV 07/15/18 12:52 Wound Center Nurse 2 [Procedure/Treatment] #2 LEFT LOWER LEG -Time 12:53 -Correct Patient Yes -Correct Side, Site, Position Yes -Correct Procedure Yes -Procedure Performed Yes -Type of Procedure Debridement -Clinical Debridement Selective -Post Debridement Size (cm) - Length 1.0 -Post Debridement Size (cm) - Width 1.1 -Post Debridement Size (cm) - Depth 0.1 -Total Square Cm 1.10 -Wound/Ulcer Outcome Not Healed -Ulcer Cleansing Rinsed/ Irrigated with Saline -Foul Odor after Cleansing No -Bioengineered Tissue No -Bleeding Controlled with Pressure -Offloading No -Treatment Response Procedure Tolerated Well [See Physician Procedure note for Specifics] Pain Scale: 0-10 Numeric [Pain] -Is Patient Pain Free? Yes Musculoskeletal: No Muscle Wasting Neurological: Cranial nerves II-XII grossly intact, Neuro grossly intact Psych/Mental Status: Normal Affect, Appropriate, Alert and oriented to time, place, person, mood and affect Debridement Note Post-Debridement Measurements/Treatment WC - Nurse 2 - General Ulcer CM Notes Start: 07/15/18 12:22 Freq: Status: Active Protocol: Activity Type Activity Date Activity User E-Sign Co-Sign Detail Recorded Client Recorded Date Recorded By Document 07/15/18 12:52 DV [id number] 07/15/18 12:59 DV 07/15/18 12:52 Wound Center Nurse 2 #2 LEFT LOWER LEG -Time 12:53 -Correct Patient Yes -Correct Side, Site, Position Yes -Correct Procedure Yes -Procedure Performed Yes -Type of Procedure Debridement -Clinical Debridement Selective -Post Debridement Size (cm) - Length 1.0 -Post Debridement Size (cm) - Width 1.1 -Post Debridement Size (cm) - Depth 0.1 -Total Square Cm 1.10 -Wound/Ulcer Outcome Not Healed -Ulcer Cleansing Rinsed/ Irrigated with Saline -Foul Odor after Cleansing No -Bioengineered Tissue No -Bleeding Controlled with Pressure -Offloading No -Treatment Response Procedure Tolerated Well Pain Scale: 0-10 Numeric Is Patient Pain Free? Yes Laterality: Left - Medial calf Type of Debridement: Selective debridement Anesthesia Used: 5% Lidocaine Gel Depth: Down to and including healthy tissue Percentage of wound debrided: 100 Instrument Used: 3mm curette Severity: Limited To Skin Breakdown Amount of bleeding with debridement: Mild Bleeding Controlled with: Compression and gauze Patient tolerated procedure well Assessment/Plan Active Problems Peripheral vascular disease of lower extremity with ulceration (Chronic) Open wound (Chronic) Non-healing wound of lower extremity (Chronic) Chronic venous insufficiency (Chronic) Venous hypertension, chronic, with ulcer and inflammation (Chronic) Venous stasis ulcer (Chronic) Hyperpigmentation (Chronic) Lipodermatosclerosis (Chronic) Assessment: This is a 72-year-old male with a long-standing history of chronic venous insufficiency, venous hypertension with inflammation and ulceration, etc. He presents with an ulceration of the left medial calf, appearing to be related to his chronic venous disease. He is otherwise generally healthy. The patient's recent venous duplex examination reveals incompetence of the left great and small saphenous veins. His noninvasive lower extremity arterial study is normal. The patient's recent biopsy of the left calf ulceration is negative for malignancy, and reveals results as expected, namely chronic inflammatory processes. Plan: Conservative treatment measures have been implemented. Patient is to continue sleeping on a flat mattress at night. He is to elevate his legs to heart level, or higher, even during daytime hours. Avoidance of idle standing and sitting has been recommended. The patient is to remain active. Activity has been encouraged. Weight loss has been advised. Compression is to be continued by means of graduated compression stockings of 20-30 mmHg compression, which the patient possesses. We are to continue the use of Promogran topically on a daily basis. We have considered the use of skin graft substitutes, but the small size of the patient's current ulceration appears to reduce the likelihood of achieving preauthorization. We have again discussed the possibility of endovenous ablation of the incompetent superficial veins in the left lower extremity, a procedure which may be of benefit. We have also discussed the potential benefits of VenaSeal, venous ablation technique using a medical adhesive. Both thermal ablation and VenaSeal have been explained in detail. The indications and risks of the procedure have been discussed in detail. Appropriate expectations also been explained. The patient indicates his desire to proceed, and preauthorization will be undertaken as a prelude to likely intervention. The patient is non-smoker. Influenza vaccine was not administered today. Patient weighs 270 pounds. He stands 6 feet 0 inches in height. BMI is 36.6. This places him in a class II obesity category. Weight loss has been recommended, in collaboration with the patient's primary care physician has been advised.
[2018-07-22 12:21] VITALS: BP 136/75; PULSE 81; RESP 16; TEMP 36.6; BMI 36.6
--- NOTE | 2018-07-22 12:59 | PCM.WC.HP ---
(1) Peripheral vascular disease of lower extremity with ulceration Status: Chronic Current Visit: Yes Code(s): I73.9 - Peripheral vascular disease, unspecified; L97.909 - Non-pressure chronic ulcer of unspecified part of unspecified lower leg with unspecified severity (2) Open wound Status: Chronic Current Visit: Yes Code(s): T14.8XXA - Other injury of unspecified body region, initial encounter (3) Non-healing wound of lower extremity Status: Chronic Current Visit: Yes Qualifiers: Encounter type: subsequent encounter Laterality: left Qualified Code(s): S81.802D - Unspecified open wound, left lower leg, subsequent encounter Code(s): S81.809A - Unspecified open wound, unspecified lower leg, initial encounter (4) Chronic venous insufficiency Status: Chronic Current Visit: Yes Code(s): I87.2 - Venous insufficiency (chronic) (peripheral) (5) Venous hypertension, chronic, with ulcer and inflammation Status: Chronic Current Visit: Yes Qualifiers: Laterality: left Code(s): I87.339 - Chronic venous hypertension (idiopathic) with ulcer and inflammation of unspecified lower extremity; L97.909 - Non-pressure chronic ulcer of unspecified part of unspecified lower leg with unspecified severity (6) Venous stasis ulcer Status: Chronic Current Visit: Yes Qualifiers: Venous stasis ulcer site: calf Varicose vein presence: without varicose veins Laterality: left Code(s): I83.009 - Varicose veins of unspecified lower extremity with ulcer of unspecified site; L97.909 - Non-pressure chronic ulcer of unspecified part of unspecified lower leg with unspecified severity (7) Hyperpigmentation Status: Chronic Current Visit: Yes Code(s): L81.9 - Disorder of pigmentation, unspecified (8) Lipodermatosclerosis Status: Chronic Current Visit: Yes Qualifiers: Code(s): I83.10 - Varicose veins of unspecified lower extremity with inflammation (9) Obesity (BMI 30-39.9) Status: Chronic Current Visit: No Code(s): E66.9 - Obesity, unspecified History of Present Illness Chief Complaint: Chronic venous insufficiency, venous hypertension with inflammation and ulceration, venous stasis ulceration?left medial calf History of Wound: This is a 72-year-old male with an ulceration of the left medial calf, which has been present since February 2018. Patient has a history of chronic venous insufficiency, venous hypertension with inflammation and ulceration, and venous stasis ulceration. He has been treated at the [facility] since February 2018, relative to the ulceration on the left medial calf. It temporarily healed, but recurred within a matter of days. He has previously undergone endothermal ablation of incompetent superficial veins in the right lower extremity, performed in 2012. A venous study performed in April 2013 revealed successful ablation of the right great saphenous vein anterior accessory saphenous veins. In recent months, the patient has been using Shalonda or Promogran topically to the ulceration on the left medial calf, and has undergone serial debridements. He owns graduated compression stockings of 20-30 mmHg compression, which he typically wears on a daily basis. The patient denies a history of thrombophlebitis. Patient has recently undergone a noninvasive lower extremity arterial study, dated May 10, 2018, which revealed no evidence of significant arterial occlusive disease in the lower extremities. Venous duplex examination revealed valvular incompetence involving the left great saphenous vein and the left small saphenous vein. 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 He also has undergone several anorectal surgical procedures. A sigmoid colon resection was performed in June 2017. Allergies/Adverse Reactions: Allergies amoxicillin [From Augmentin] Adverse Reaction (Verified 07/20/17 22:35) Abd cramps/diarrhea clavulanic acid [From Augmentin] Adverse Reaction (Verified 07/20/17 22:35) Abd cramps/diarrhea ibuprofen [From Motrin] Adverse Reaction (Verified 07/20/17 22:35) Other Home Medications: Ambulatory Orders Medication Instructions Recorded Calcium Citrate - Vit D Tablet 600 mg PO DAILY 07/08/17 Finasteride [Proscar] 5 mg PO QHS 07/08/17 L.acidoph,Paracasei, B.lactis 1 each PO DAILY 07/08/17 [Probiotic] Lorazepam [Ativan] 0.5 mg PO DAILY PRN PRN 07/08/17 Meloxicam [Mobic] 15 mg PO QODAY 07/08/17 Multivit-Min/FA/Lycopen/Lutein 1 tab PO DAILY 07/08/17 [Centrum Silver Men Tablet] Pantoprazole Sodium [Protonix] 40 mg PO QODAY 07/08/17 Tamsulosin HCl [Flomax] 0.4 mg PO DAILY 07/08/17 Oxycodone [Oxyir] 5 mg PO Q4H PRN PRN 7 Days #20 tab 07/14/17 Venlafaxine XR [Effexor Xr] 37.5 mg PO DAILY capsule 07/14/17 - Family History Paternal - - The patient's father at the age of 80 with a history of coronary artery disease. Maternal - - The patient's mother at the age of 90 with a history of renal insufficiency. Smoking Status: Never smoker Tobacco Use: Non-smoker Review of Systems Constitutional: Denies: Chills, Fever, Weight Change Eyes: Denies: Pain, Vision Change HEENT: Denies: Difficulty Hearing, Difficulty Swallowing, Sinus Congestion Cardiovascular: Denies: Chest Pain, Palpitations Respiratory: Denies: Cough, Shortness of Breath Gastrointestinal: Denies: Diarrhea, Nausea, Vomiting Genitourinary: Denies: Dysuria, Hematuria Endocrine: Denies: Heat/ Cold Intolerance, Polydipsia, Polyuria Hematologic/ Lymphatic: Denies: Easy Bruising, Easy Bleeding - Physical Exam Vital Signs Temp Pulse Resp BP 97.8 F 81 16 136/75 H 07/22/18 12:21 07/22/18 12:21 07/22/18 12:21 07/22/18 12:21 General: Alert, Oriented x3, Cooperative, No apparent distress, Well developed, Well nourished HEENT: Atraumatic, PERRLA, EOMI, Normocephalic Oral: Moist Mucosa Neck: No JVD Lungs: Normal air movement Abdomen: Non-Distended Extremities: No clubbing, No cyanosis, No edema, No Calf Tenderness, - - The ulceration on the left medial calf persists. Dimensions are documented elsewhere. Visually, it appears slightly smaller. Ulcer margins are well beveled. The base of the ulceration is generally pink and healthy in appearance, with active granulation tissue. There is a mild amount of bioburden. There is no sign of infection or cellulitis. Chronic hyperpigmentation surrounds the ulceration near the left medial calf. Wound Measurements and Assessment WC - Nurse 1 - General Ulcer Measurement Start: 07/15/18 12:22 Freq: Status: Active Protocol: Activity Type Activity Date Activity User E-Sign Co-Sign Detail Recorded Client Recorded Date Recorded By Document 07/22/18 12:21 JF [id number] 07/22/18 12:26 07/22/18 12:21 Wound Center Nurse 1 [Ulcer Assessment] #2 LEFT LOWER LEG -Combined with other wound No -Current Size (cm) - Length 0.7 -Current Size (cm) - Width 0.8 -Current Size (cm) - Depth 0.1 -Total Square Cm 0.56 -Photo Taken No -Epithelialization None Present -Tunneling No -Undermining/Tunneling No -Circular Undermining No -Exudate Amt None Present -Wound Margin Indistinct, Non -Visible -Granulation Amt None Present (0 %) -Slough/Fibrin Yes -Necrosis Amt Large (67-100%) -Necrotic Tissue Type Adherent Slough -Structure Exposed N/A -Texture (Aye-wound Skin Appearance) Assessed Localized Edema Scarring -Moisture (Aye-wound Skin Appearance Assessed ) Dry/Scaly -Color (Aye-wound Skin Appearance) Assessed Hemosiderin Staining -Temperature (Aey-wound Skin No Abnormality Appearance) (Pt Warm) -Tenderness on Palpation (Aye-wound No Skin Appearance) -Ulcer Cleansing Rinsed/ Irrigated with Saline -Foul Odor after Cleansing No -Anesthetic Used 5% Lidocaine Gel [Edema Assessment] -Lower Limb Edema Present Yes -Left Calf (cm) 39.2 -Left Ankle (cm) 22.6 WC - Nurse 2 - General Ulcer CM Notes Start: 07/15/18 12:22 Freq: Status: Active Protocol: Activity Type Activity Date Activity User E-Sign Co-Sign Detail Recorded Client Recorded Date Recorded By Document 07/22/18 12:54 DV [id number] 07/22/18 12:59 DV 07/22/18 12:54 Wound Center Nurse 2 [Procedure/Treatment] #2 LEFT LOWER LEG -Time 12:55 -Correct Patient Yes -Correct Side, Site, Position Yes -Correct Procedure Yes -Procedure Performed Yes -Type of Procedure Debridement -Clinical Debridement Subcutaneous -Post Debridement Size (cm) - Length 0.8 -Post Debridement Size (cm) - Width 0.7 -Post Debridement Size (cm) - Depth 0.1 -Total Square Cm 0.56 -Wound/Ulcer Outcome Not Healed -Ulcer Cleansing Rinsed/ Irrigated with Saline -Foul Odor after Cleansing No -Bioengineered Tissue No -Bleeding Controlled with Pressure -Offloading No -Treatment Response Procedure Tolerated Well [See Physician Procedure note for Specifics] Pain Scale: 0-10 Numeric [Pain] -Is Patient Pain Free? Yes Musculoskeletal: No Muscle Wasting Neurological: Cranial nerves II-XII grossly intact, Neuro grossly intact Psych/Mental Status: Normal Affect, Appropriate, Alert and oriented to time, place, person, mood and affect Debridement Note Post-Debridement Measurements/Treatment WC - Nurse 2 - General Ulcer CM Notes Start: 07/15/18 12:22 Freq: Status: Active Protocol: Activity Type Activity Date Activity User E-Sign Co-Sign Detail Recorded Client Recorded Date Recorded By Document 07/15/18 12:52 DV [id number] 07/15/18 12:59 DV Document 07/22/18 12:54 DV [id number] 07/22/18 12:59 DV 07/15/18 07/22/18 12:52 12:54 Wound Center Nurse 2 #2 LEFT LOWER LEG -Time 12:53 12:55 -Correct Patient Yes Yes -Correct Side, Site, Position Yes Yes -Correct Procedure Yes Yes -Procedure Performed Yes Yes -Type of Procedure Debridement Debridement -Clinical Debridement Selective Subcutaneous -Post Debridement Size (cm) - Length 1.0 0.8 -Post Debridement Size (cm) - Width 1.1 0.7 -Post Debridement Size (cm) - Depth 0.1 0.1 -Total Square Cm 1.10 0.56 -Wound/Ulcer Outcome Not Healed Not Healed -Ulcer Cleansing Rinsed/ Rinsed/ Irrigated with Irrigated with Saline Saline -Foul Odor after Cleansing No No -Bioengineered Tissue No No -Bleeding Controlled with Pressure Pressure -Offloading No No -Treatment Response Procedure Procedure Tolerated Well Tolerated Well Pain Scale: 0-10 Numeric Is Patient Pain Free? Yes Yes Laterality: Left - Medial calf Type of Debridement: Excisional debridement Anesthesia Used: 5% Lidocaine Gel Depth: Down to and including healthy tissue, in the subcutaneous layer Percentage of wound debrided: 100 Instrument Used: 5mm curette Tissue Removed: Nonviable tissue and senescent material Severity: Fat Layer Exposed Amount of bleeding with debridement: Mild Bleeding Controlled with: Compression and gauze Patient tolerated procedure well Assessment/Plan Active Problems Peripheral vascular disease of lower extremity with ulceration (Chronic) Open wound (Chronic) Non-healing wound of lower extremity (Chronic) Chronic venous insufficiency (Chronic) Venous hypertension, chronic, with ulcer and inflammation (Chronic) Venous stasis ulcer (Chronic) Hyperpigmentation (Chronic) Lipodermatosclerosis (Chronic) Assessment: This is a 72-year-old male with a long-standing history of chronic venous insufficiency, venous hypertension with inflammation and ulceration, etc. He presents with an ulceration of the left medial calf, appearing to be related to his chronic venous disease. He is otherwise generally healthy. The patient's recent venous duplex examination reveals incompetence of the left great and small saphenous veins. His noninvasive lower extremity arterial study is normal. The patient's recent biopsy of the left calf ulceration is negative for malignancy, and reveals results as expected, namely chronic inflammatory processes. Plan: Conservative treatment measures have been implemented. Patient is to continue sleeping on a flat mattress at night. He is to elevate his legs to heart level, or higher, even during daytime hours. Avoidance of idle standing and sitting has been recommended. The patient is to remain active. Activity has been encouraged. Weight loss has been advised. Compression is to be continued by means of graduated compression stockings of 20-30 mmHg compression, which the patient possesses. We are to continue the use of Promogran topically every other day. We have considered the use of skin graft substitutes, but the small size of the patient's current ulceration appears to reduce the likelihood of achieving preauthorization. We have again discussed the possibility of endovenous ablation of the incompetent superficial veins in the left lower extremity, a procedure which may be of benefit. We have also discussed the potential benefits of VenaSeal, venous ablation technique using a medical adhesive. Both thermal ablation and VenaSeal have been explained in detail. The indications and risks of the procedure have been discussed in detail. Approval has been obtained for endovenous laser ablation. The endovenous laser ablation procedure is currently being scheduled for the near future. Appropriate expectations have also been explained. The patient indicates his desire to proceed. The patient is non-smoker. Influenza vaccine was not administered today. Patient weighs 270 pounds. He stands 6 feet 0 inches in height. BMI is 36.6. This places him in a class II obesity category. Weight loss has been recommended, in collaboration with the patient's primary care physician has been advised.
[2018-08-06 09:32] VITALS: BP 141/76; PULSE 80; RESP 16; TEMP 36.6; BMI 36.6
--- NOTE | 2018-08-06 10:08 | PCM.WC.HP ---
(1) Peripheral vascular disease of lower extremity with ulceration Status: Chronic Current Visit: Yes Code(s): I73.9 - Peripheral vascular disease, unspecified; L97.909 - Non-pressure chronic ulcer of unspecified part of unspecified lower leg with unspecified severity (2) Open wound Status: Chronic Current Visit: Yes Code(s): T14.8XXA - Other injury of unspecified body region, initial encounter (3) Non-healing wound of lower extremity Status: Chronic Current Visit: Yes Qualifiers: Encounter type: subsequent encounter Laterality: left Qualified Code(s): S81.802D - Unspecified open wound, left lower leg, subsequent encounter Code(s): S81.809A - Unspecified open wound, unspecified lower leg, initial encounter (4) Chronic venous insufficiency Status: Chronic Current Visit: Yes Code(s): I87.2 - Venous insufficiency (chronic) (peripheral) (5) Venous hypertension, chronic, with ulcer and inflammation Status: Chronic Current Visit: Yes Qualifiers: Laterality: left Code(s): I87.339 - Chronic venous hypertension (idiopathic) with ulcer and inflammation of unspecified lower extremity; L97.909 - Non-pressure chronic ulcer of unspecified part of unspecified lower leg with unspecified severity (6) Venous stasis ulcer Status: Chronic Current Visit: Yes Qualifiers: Venous stasis ulcer site: calf Varicose vein presence: without varicose veins Laterality: left Code(s): I83.009 - Varicose veins of unspecified lower extremity with ulcer of unspecified site; L97.909 - Non-pressure chronic ulcer of unspecified part of unspecified lower leg with unspecified severity (7) Hyperpigmentation Status: Chronic Current Visit: Yes Code(s): L81.9 - Disorder of pigmentation, unspecified (8) Lipodermatosclerosis Status: Chronic Current Visit: Yes Qualifiers: Code(s): I83.10 - Varicose veins of unspecified lower extremity with inflammation (9) Obesity (BMI 30-39.9) Status: Chronic Current Visit: No Code(s): E66.9 - Obesity, unspecified History of Present Illness Chief Complaint: Chronic venous insufficiency, venous hypertension with inflammation and ulceration, venous stasis ulceration?left medial calf History of Wound: This is a 72-year-old male with an ulceration of the left medial calf, which has been present since February 2018. Patient has a history of chronic venous insufficiency, venous hypertension with inflammation and ulceration, and venous stasis ulceration. He has been treated at the [facility] since February 2018, relative to the ulceration on the left medial calf. It temporarily healed, but recurred within a matter of days. He has previously undergone endothermal ablation of incompetent superficial veins in the right lower extremity, performed in 2012. A venous study performed in April 2013 revealed successful ablation of the right great saphenous vein anterior accessory saphenous veins. In recent months, the patient has been using Shalonda or Promogran topically to the ulceration on the left medial calf, and has undergone serial debridements. He owns graduated compression stockings of 20-30 mmHg compression, which he typically wears on a daily basis. The patient denies a history of thrombophlebitis. Patient has recently undergone a noninvasive lower extremity arterial study, dated May 10, 2018, which revealed no evidence of significant arterial occlusive disease in the lower extremities. Venous duplex examination revealed valvular incompetence involving the left great saphenous vein and the left small saphenous vein. 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 He also has undergone several anorectal surgical procedures. A sigmoid colon resection was performed in June 2017. Allergies/Adverse Reactions: Allergies amoxicillin [From Augmentin] Adverse Reaction (Verified 07/20/17 22:35) Abd cramps/diarrhea clavulanic acid [From Augmentin] Adverse Reaction (Verified 07/20/17 22:35) Abd cramps/diarrhea ibuprofen [From Motrin] Adverse Reaction (Verified 07/20/17 22:35) Other Home Medications: Ambulatory Orders Medication Instructions Recorded Calcium Citrate - Vit D Tablet 600 mg PO DAILY 07/08/17 Finasteride [Proscar] 5 mg PO QHS 07/08/17 L.acidoph,Paracasei, B.lactis 1 each PO DAILY 07/08/17 [Probiotic] Lorazepam [Ativan] 0.5 mg PO DAILY PRN PRN 07/08/17 Meloxicam [Mobic] 15 mg PO QODAY 07/08/17 Multivit-Min/FA/Lycopen/Lutein 1 tab PO DAILY 07/08/17 [Centrum Silver Men Tablet] Pantoprazole Sodium [Protonix] 40 mg PO QODAY 07/08/17 Tamsulosin HCl [Flomax] 0.4 mg PO DAILY 07/08/17 Oxycodone [Oxyir] 5 mg PO Q4H PRN PRN 7 Days #20 tab 07/14/17 Venlafaxine XR [Effexor Xr] 37.5 mg PO DAILY capsule 07/14/17 - Family History Paternal - - The patient's father at the age of 80 with a history of coronary artery disease. Maternal - - The patient's mother at the age of 90 with a history of renal insufficiency. Smoking Status: Never smoker Tobacco Use: Non-smoker Review of Systems Constitutional: Denies: Chills, Fever, Weight Change Eyes: Denies: Pain, Vision Change HEENT: Denies: Difficulty Hearing, Difficulty Swallowing, Sinus Congestion Cardiovascular: Denies: Chest Pain, Palpitations Respiratory: Denies: Cough, Shortness of Breath Gastrointestinal: Denies: Diarrhea, Nausea, Vomiting Genitourinary: Denies: Dysuria, Hematuria Endocrine: Denies: Heat/ Cold Intolerance, Polydipsia, Polyuria Hematologic/ Lymphatic: Denies: Easy Bruising, Easy Bleeding - Physical Exam Vital Signs Temp Pulse Resp BP 97.8 F 80 16 141/76 H 08/06/18 09:32 08/06/18 09:32 08/06/18 09:32 08/06/18 09:32 General: Alert, Oriented x3, Cooperative, No apparent distress, Well developed, Well nourished HEENT: Atraumatic, PERRLA, EOMI, Normocephalic Oral: Moist Mucosa Neck: No JVD Lungs: Normal air movement Abdomen: Non-Distended Extremities: No clubbing, No cyanosis, No edema, No Calf Tenderness, - - There is no significant swelling or edema in the left lower extremity. The ulceration on the left medial calf is little changed in size or appearance. It is surrounded by mild hyperpigmentation. There is no sign of infection or cellulitis. Mentions are documented elsewhere. There is a moderate amount of bioburden. Wound Measurements and Assessment WC - Nurse 1 - General Ulcer Measurement Start: 07/15/18 12:22 Freq: Status: Active Protocol: Activity Type Activity Date Activity User E-Sign Co-Sign Detail Recorded Client Recorded Date Recorded By Document 08/06/18 09:32 MW [id number] 08/06/18 09:37 MW 08/06/18 09:32 Wound Center Nurse 1 [Ulcer Assessment] #2 LEFT LOWER LEG -Combined with other wound No -Current Size (cm) - Length 0.8 -Current Size (cm) - Width 0.7 -Current Size (cm) - Depth 0.1 -Total Square Cm 0.56 -Photo Taken No -Epithelialization None Present -Tunneling No -Undermining/Tunneling No -Circular Undermining No -Exudate Amt Small -Exudate Type Serosanguineous -Wound Margin Flat & Intact -Granulation Amt Small (1-33%) -Granulation Quality Pale -Slough/Fibrin Yes -Necrosis Amt Large (67-100%) -Necrotic Tissue Type Adherent Slough -Structure Exposed N/A -Texture (Aye-wound Skin Appearance) Assessed Scarring -Moisture (Aye-wound Skin Appearance No Abnormality ) Assessed -Color (Aye-wound Skin Appearance) Assessed Hemosiderin Staining -Temperature (Aye-wound Skin No Abnormality Appearance) (Pt Warm) -Tenderness on Palpation (Aye-wound No Skin Appearance) -Ulcer Cleansing Rinsed/ Irrigated with Saline -Foul Odor after Cleansing No -Anesthetic Used 4% Lidocaine Solution 5% Lidocaine Gel Musculoskeletal: No Muscle Wasting Neurological: Cranial nerves II-XII grossly intact, Neuro grossly intact Psych/Mental Status: Normal Affect, Appropriate, Alert and oriented to time, place, person, mood and affect Debridement Note Post-Debridement Measurements/Treatment WC - Nurse 2 - General Ulcer CM Notes Start: 07/15/18 12:22 Freq: Status: Active Protocol: Activity Type Activity Date Activity User E-Sign Co-Sign Detail Recorded Client Recorded Date Recorded By Document 07/15/18 12:52 DV [id number] 07/15/18 12:59 DV Document 07/22/18 12:54 DV [id number] 07/22/18 12:59 DV 07/15/18 07/22/18 12:52 12:54 Wound Center Nurse 2 #2 LEFT LOWER LEG -Time 12:53 12:55 -Correct Patient Yes Yes -Correct Side, Site, Position Yes Yes -Correct Procedure Yes Yes -Procedure Performed Yes Yes -Type of Procedure Debridement Debridement -Clinical Debridement Selective Subcutaneous -Post Debridement Size (cm) - Length 1.0 0.8 -Post Debridement Size (cm) - Width 1.1 0.7 -Post Debridement Size (cm) - Depth 0.1 0.1 -Total Square Cm 1.10 0.56 -Wound/Ulcer Outcome Not Healed Not Healed -Ulcer Cleansing Rinsed/ Rinsed/ Irrigated with Irrigated with Saline Saline -Foul Odor after Cleansing No No -Bioengineered Tissue No No -Bleeding Controlled with Pressure Pressure -Offloading No No -Treatment Response Procedure Procedure Tolerated Well Tolerated Well Pain Scale: 0-10 Numeric Is Patient Pain Free? Yes Yes Laterality: Left - Medial calf Type of Debridement: Excisional debridement Anesthesia Used: 5% Lidocaine Gel Depth: Down to and including healthy tissue, in the subcutaneous layer Percentage of wound debrided: 100 Instrument Used: 3mm curette Tissue Removed: Nonviable and senescent material Severity: Fat Layer Exposed Amount of bleeding with debridement: Mild Bleeding Controlled with: Compression and gauze Patient tolerated procedure well Swab cultures were obtained, both for aerobic and anaerobic growth Assessment/Plan Active Problems Peripheral vascular disease of lower extremity with ulceration (Chronic) Open wound (Chronic) Non-healing wound of lower extremity (Chronic) Chronic venous insufficiency (Chronic) Venous hypertension, chronic, with ulcer and inflammation (Chronic) Venous stasis ulcer (Chronic) Hyperpigmentation (Chronic) Lipodermatosclerosis (Chronic) Assessment: This is a 72-year-old male with a long-standing history of chronic venous insufficiency, venous hypertension with inflammation and ulceration, etc. He presents with an ulceration of the left medial calf, appearing to be related to his chronic venous disease. He is otherwise generally healthy. The patient's recent venous duplex examination reveals incompetence of the left great and small saphenous veins. His noninvasive lower extremity arterial study is normal. The patient's recent biopsy of the left calf ulceration is negative for malignancy, and reveals results as expected, namely chronic inflammatory processes. Plan: Conservative treatment measures have been implemented. Patient is to continue sleeping on a flat mattress at night. He is to elevate his legs to heart level, or higher, even during daytime hours. Avoidance of idle standing and sitting has been recommended. The patient is to remain active. Activity has been encouraged. Weight loss has been advised. Compression is to be continued by means of graduated compression stockings of 20-30 mmHg compression, which the patient possesses. We are to continue the use of Promogran topically every other day. We have considered the use of skin graft substitutes, and will seek preauthorization for the use of Epifix or Grafix. Cultures have been obtained, and results will be awaited. Patient has recently been treated for a sinus infection, and has completed a recent course of Cefdinir. We have again discussed the possibility of endovenous ablation of the incompetent superficial veins in the left lower extremity, a procedure which may be of benefit. We have also discussed the potential benefits of VenaSeal, venous ablation technique using a medical adhesive. Both thermal ablation and VenaSeal have been explained in detail. The indications and risks of the procedure have been discussed in detail. Approval has been obtained for endovenous laser ablation. The endovenous laser ablation procedure is currently being scheduled for the near future. Appropriate expectations have also been explained. The patient indicates his desire to proceed. The patient is to return in 1 week for reevaluation. The patient is non-smoker. Influenza vaccine was not administered today. Patient weighs 270 pounds. He stands 6 feet 0 inches in height. BMI is 36.6. This places him in a class II obesity category. Weight loss has been recommended, in collaboration with the patient's primary care physician has been advised.
== END 2018-08-11 23:59 ==
LOC: WC 09:00
PROVIDERS: Family Provider Family Medicine; PCP Family Medicine; Referring Provider Surgery; Visit Provider Surgery
DX: I83.222 Varicose veins of left lower extremity with both ulcer of calf and inflammation (principal); L97.222 Non-pressure chronic ulcer of left calf with fat layer exposed; E66.9 Obesity, unspecified; Z68.36 Body mass index [BMI] 36.0-36.9, adult; Z71.3 Dietary counseling and surveillance; Z79.899 Other long term (current) drug therapy
CPT/HCPCS: 11042; 87070; 87075; 87077; 87186; 87205; 97597

== ENCOUNTER 2018-09-10 08:00 | Outpatient (RCR) | payer MEDICARE, SELFPAY ==
[2018-08-12 00:42] VITALS: BP 141/76; PULSE 80; RESP 16; TEMP 36.6
[2018-08-20 08:12] VITALS: BP 136/68; PULSE 76; RESP 16; TEMP 36.1; BMI 36.6
--- NOTE | 2018-08-20 08:43 | HP.PCM_ITS ---
(1) Peripheral vascular disease of lower extremity with ulceration Status: Inactive Current Visit: No Code(s): I73.9 - Peripheral vascular disease, unspecified; L97.909 - Non-pressure chronic ulcer of unspecified part of unspecified lower leg with unspecified severity (2) Open wound Status: Chronic Current Visit: Yes Code(s): T14.8XXA - Other injury of unspecified body region, initial encounter (3) Non-healing wound of lower extremity Status: Chronic Current Visit: Yes Qualifiers: Encounter type: subsequent encounter Laterality: left Qualified Code(s): S81.802D - Unspecified open wound, left lower leg, subsequent encounter Code(s): S81.809A - Unspecified open wound, unspecified lower leg, initial encounter (4) Chronic venous insufficiency Status: Chronic Current Visit: No Code(s): I87.2 - Venous insufficiency (chronic) (peripheral) (5) Venous hypertension, chronic, with ulcer and inflammation Status: Chronic Current Visit: Yes Qualifiers: Laterality: left Code(s): I87.339 - Chronic venous hypertension (idiopathic) with ulcer and inflammation of unspecified lower extremity; L97.909 - Non-pressure chronic ulcer of unspecified part of unspecified lower leg with unspecified severity (6) Venous stasis ulcer Status: Chronic Current Visit: Yes Qualifiers: Venous stasis ulcer site: calf Varicose vein presence: with varicose veins Laterality: left Non-pressure ulcer stage: with fat layer exposed Qualified Code(s): I83.022 - Varicose veins of left lower extremity with ulcer of calf; L97.222 - Non-pressure chronic ulcer of left calf with fat layer exposed Code(s): I83.009 - Varicose veins of unspecified lower extremity with ulcer of unspecified site; L97.909 - Non-pressure chronic ulcer of unspecified part of unspecified lower leg with unspecified severity (7) Hyperpigmentation Status: Chronic Current Visit: Yes Code(s): L81.9 - Disorder of pigmentation, unspecified (8) Lipodermatosclerosis Status: Chronic Current Visit: Yes Qualifiers: Laterality: left Qualified Code(s): I83.12 - Varicose veins of left lower extremity with inflammation Code(s): I83.10 - Varicose veins of unspecified lower extremity with inflammation (9) Obesity (BMI 30-39.9) Status: Chronic Current Visit: No Code(s): E66.9 - Obesity, unspecified History of Present Illness Chief Complaint: Chronic venous insufficiency, venous hypertension with inflammation and ulceration, venous stasis ulceration?left medial calf History of Wound: This is a 72-year-old male with an ulceration of the left medial calf, which has been present since February 2018. Patient has a history of chronic venous insufficiency, venous hypertension with inflammation and ulceration, and venous stasis ulceration. He has been treated at the [facility] since February 2018, relative to the ulceration on the left medial calf. It temporarily healed, but recurred within a matter of days. He has previously undergone endothermal ablation of incompetent superficial veins in the right lower extremity, performed in 2012. A venous study performed in April 2013 revealed successful ablation of the right great saphenous vein anterior accessory saphenous veins. In recent months, the patient has been using Shalonda or Promogran topically to the ulceration on the left medial calf, and has undergone serial debridements. He owns graduated compression stockings of 20-30 mmHg compression, which he typically wears on a daily basis. The patient denies a history of thrombophlebitis. Patient has recently undergone a noninvasive lower extremity arterial study, dated May 10, 2018, which revealed no evidence of significant arterial occlusive disease in the lower extremities. Venous duplex examination revealed valvular incompetence involving the left great saphenous vein and the left small saphenous vein. Past Medical History Past Medical History: Chronic Problems Open wound (Chronic) Non-healing wound of lower extremity (Chronic) Chronic venous insufficiency (Chronic) Venous hypertension, chronic, with ulcer and inflammation (Chronic) Venous stasis ulcer (Chronic) Hyperpigmentation (Chronic) Lipodermatosclerosis (Chronic) Obesity (BMI 30-39.9) (Chronic) Surgical History: - - The patient has previously undergone endovenous laser ablation of incompetent superficial veins in the right lower extremity. He also has undergone several anorectal surgical procedures. A sigmoid colon resection was performed in June 2017. Allergies/Adverse Reactions: Allergies amoxicillin [From Augmentin] Adverse Reaction (Verified 07/20/17 22:35) Abd cramps/diarrhea clavulanic acid [From Augmentin] Adverse Reaction (Verified 07/20/17 22:35) Abd cramps/diarrhea ibuprofen [From Motrin] Adverse Reaction (Verified 07/20/17 22:35) Other Home Medications: Ambulatory Orders Medication Instructions Recorded Calcium Citrate - Vit D Tablet 600 mg PO DAILY 07/08/17 Finasteride [Proscar] 5 mg PO QHS 07/08/17 L.acidoph,Paracasei, B.lactis 1 each PO DAILY 07/08/17 [Probiotic] Lorazepam [Ativan] 0.5 mg PO DAILY PRN PRN 07/08/17 Meloxicam [Mobic] 15 mg PO QODAY 07/08/17 Multivit-Min/FA/Lycopen/Lutein 1 tab PO DAILY 07/08/17 [Centrum Silver Men Tablet] Pantoprazole Sodium [Protonix] 40 mg PO QODAY 07/08/17 Tamsulosin HCl [Flomax] 0.4 mg PO DAILY 07/08/17 Oxycodone [Oxyir] 5 mg PO Q4H PRN PRN 7 Days #20 tab 07/14/17 Venlafaxine XR [Effexor Xr] 37.5 mg PO DAILY capsule 07/14/17 - Family History Paternal - - The patient's father at the age of 80 with a history of coronary artery disease. Maternal - - The patient's mother at the age of 90 with a history of renal insufficiency. Smoking Status: Never smoker Tobacco Use: Non-smoker Review of Systems Constitutional: Denies: Chills, Fever, Weight Change Eyes: Denies: Pain, Vision Change HEENT: Denies: Difficulty Hearing, Difficulty Swallowing, Sinus Congestion Cardiovascular: Denies: Chest Pain, Palpitations Respiratory: Denies: Cough, Shortness of Breath Gastrointestinal: Denies: Diarrhea, Nausea, Vomiting Genitourinary: Denies: Dysuria, Hematuria Endocrine: Denies: Heat/ Cold Intolerance, Polydipsia, Polyuria Hematologic/ Lymphatic: Denies: Easy Bruising, Easy Bleeding - Physical Exam Vital Signs Temp Pulse Resp BP 96.9 F L 76 16 136/68 H 08/20/18 08:12 08/20/18 08:12 08/20/18 08:12 08/20/18 08:12 General: Alert, Oriented x3, Cooperative, No apparent distress, Well developed, Well nourished HEENT: Atraumatic, PERRLA, EOMI, Normocephalic Oral: Moist Mucosa Neck: No JVD Lungs: Normal air movement Abdomen: Non-Distended Extremities: No clubbing, No cyanosis, No edema, No Calf Tenderness, - - Chronic skin changes persist on the left medial calf, namely hyperpigmentation and lipodermatosclerosis. The ulceration on the left medial calf is slightly smaller in size. Dimensions are documented elsewhere. The base of the ulceration is generally pink and healthy in appearance, with evidence of active granulation tissue. There is a small amount of bioburden. There is no evidence of infection or cellulitis. There is no significant swelling or edema in the left lower extremity. Wound Measurements and Assessment WC - Nurse 1 - General Ulcer Measurement Start: 08/20/18 08:12 Freq: Status: Active Protocol: Activity Type Activity Date Activity User E-Sign Co-Sign Detail Recorded Client Recorded Date Recorded By Document 08/20/18 08:12 MICAH [id number] 08/20/18 08:17 MICAH 08/20/18 08:12 Wound Center Nurse 1 [Ulcer Assessment] #2 LEFT LOWER LEG -Combined with other wound No -Current Size (cm) - Length 0.9 -Current Size (cm) - Width 0.7 -Current Size (cm) - Depth 0.1 -Total Square Cm 0.63 -Photo Taken No -Epithelialization Small 1-33% -Tunneling No -Undermining/Tunneling No -Circular Undermining No -Exudate Amt None Present -Wound Margin Flat & Intact -Granulation Amt None Present (0 %) -Slough/Fibrin Yes -Necrosis Amt Large (67-100%) -Necrotic Tissue Type Adherent Slough -Structure Exposed N/A -Texture (Aye-wound Skin Appearance) Assessed Localized Edema -Moisture (Aye-wound Skin Appearance Assessed ) Dry/Scaly -Color (Aye-wound Skin Appearance) Assessed Hemosiderin Staining -Temperature (Aye-wound Skin No Abnormality Appearance) (Pt Warm) -Tenderness on Palpation (Aye-wound No Skin Appearance) -Ulcer Cleansing Rinsed/ Irrigated with Saline -Foul Odor after Cleansing No -Anesthetic Used 4% Lidocaine Solution [Edema Assessment] -Lower Limb Edema Present Yes -Left Calf (cm) 37.8 -Left Ankle (cm) 22.6 WC - Nurse 2 - General Ulcer CM Notes Start: 08/20/18 08:12 Freq: Status: Active Protocol: Activity Type Activity Date Activity User E-Sign Co-Sign Detail Recorded Client Recorded Date Recorded By Document 08/20/18 08:35 DV [id number] 08/20/18 08:37 DV 08/20/18 08:35 Wound Center Nurse 2 [Procedure/Treatment] #2 LEFT LOWER LEG -Time 08:35 -Correct Patient Yes -Correct Side, Site, Position Yes -Correct Procedure Yes -Procedure Performed Yes -Type of Procedure Debridement -Clinical Debridement Subcutaneous -Post Debridement Size (cm) - Length 0.9 -Post Debridement Size (cm) - Width 0.8 -Post Debridement Size (cm) - Depth 0.1 -Total Square Cm 0.72 -Wound/Ulcer Outcome Not Healed -Ulcer Cleansing Rinsed/ Irrigated with Saline -Foul Odor after Cleansing No -Bioengineered Tissue No -Bleeding Controlled with Pressure -Offloading No -Treatment Response Procedure Tolerated Well [See Physician Procedure note for Specifics] Pain Scale: 0-10 Numeric [Pain] -Is Patient Pain Free? Yes Musculoskeletal: No Muscle Wasting Neurological: Cranial nerves II-XII grossly intact, Neuro grossly intact Psych/Mental Status: Normal Affect, Appropriate, Alert and oriented to time, place, person, mood and affect Debridement Note Post-Debridement Measurements/Treatment WC - Nurse 2 - General Ulcer CM Notes Start: 08/20/18 08:12 Freq: Status: Active Protocol: Activity Type Activity Date Activity User E-Sign Co-Sign Detail Recorded Client Recorded Date Recorded By Document 08/20/18 08:35 DV [id number] 08/20/18 08:37 DV 08/20/18 08:35 Wound Center Nurse 2 #2 LEFT LOWER LEG -Time 08:35 -Correct Patient Yes -Correct Side, Site, Position Yes -Correct Procedure Yes -Procedure Performed Yes -Type of Procedure Debridement -Clinical Debridement Subcutaneous -Post Debridement Size (cm) - Length 0.9 -Post Debridement Size (cm) - Width 0.8 -Post Debridement Size (cm) - Depth 0.1 -Total Square Cm 0.72 -Wound/Ulcer Outcome Not Healed -Ulcer Cleansing Rinsed/ Irrigated with Saline -Foul Odor after Cleansing No -Bioengineered Tissue No -Bleeding Controlled with Pressure -Offloading No -Treatment Response Procedure Tolerated Well Pain Scale: 0-10 Numeric Is Patient Pain Free? Yes Laterality: Left - Medial calf Type of Debridement: Excisional debridement Anesthesia Used: 5% Lidocaine Gel Depth: Down to and including healthy tissue, in the subcutaneous layer Percentage of wound debrided: 100 Instrument Used: 5mm curette Severity: Fat Layer Exposed Amount of bleeding with debridement: Mild Bleeding Controlled with: Compression and gauze Patient tolerated procedure well Assessment/Plan Active Problems Open wound (Chronic) Non-healing wound of lower extremity (Chronic) Venous hypertension, chronic, with ulcer and inflammation (Chronic) Venous stasis ulcer (Chronic) Hyperpigmentation (Chronic) Lipodermatosclerosis (Chronic) Assessment: This is a 72-year-old male with a long-standing history of chronic venous insufficiency, venous hypertension with inflammation and ulceration, etc. He presents with an ulceration of the left medial calf, appearing to be related to his chronic venous disease. He is otherwise generally healthy. The patient's recent venous duplex examination reveals incompetence of the left great and small saphenous veins. His noninvasive lower extremity arterial study is normal. The patient's recent biopsy of the left calf ulceration is negative for malignancy, and reveals results as expected, namely chronic inflammatory processes. The patient's recent culture results have been noted, and discussed with the patient. Rare Staphylococcus epidermidis were noted, thought to be skin myles, not thought to be worthy of antibiotic administration. Plan: Conservative treatment measures have been implemented, and will be continued. Patient is to continue sleeping on a flat mattress at night. He is to elevate his legs to heart level, or higher, even during daytime hours. Avoidance of idle standing and sitting has been recommended. The patient is to remain active. Activity has been encouraged. Weight loss has been advised. Compression is to be continued by means of graduated compression stockings of 20-30 mmHg compression, which the patient possesses. We are to continue the use of Promogran topically every other day. We have considered the use of skin graft substitutes, and will seek preauthorization for the use of Epifix or Grafix. We have again discussed the possibility of endovenous ablation of the incompetent superficial veins in the left lower extremity, a procedure which may be of benefit. We have also discussed the potential benefits of VenaSeal, venous ablation technique using a medical adhesive. Both thermal ablation and VenaSeal have been explained in detail. The indications and risks of the procedure have been discussed in detail. Approval has been obtained for endovenous laser ablation. The endovenous laser ablation procedure is scheduled for the near future. Appropriate expectations have also been explained. The patient indicates his desire to proceed. The patient is to return in 2 weeks for reevaluation. The patient is non-smoker. Influenza vaccine was not ad ministered today. Patient weighs 270 pounds. He stands 6 feet 0 inches in height. BMI is 36.6. This places him in a class II obesity category. Weight loss has been recommended, in collaboration with the patient's primary care physician has been advised.
--- NOTE | 2018-08-26 13:56 | PCM.WC.HP ---
(1) Open wound Status: Chronic Current Visit: Yes Code(s): T14.8XXA - Other injury of unspecified body region, initial encounter (2) Non-healing wound of lower extremity Status: Chronic Current Visit: Yes Qualifiers: Encounter type: subsequent encounter Laterality: left Qualified Code(s): S81.802D - Unspecified open wound, left lower leg, subsequent encounter Code(s): S81.809A - Unspecified open wound, unspecified lower leg, initial encounter (3) Chronic venous insufficiency Status: Chronic Current Visit: Yes Code(s): I87.2 - Venous insufficiency (chronic) (peripheral) (4) Venous hypertension, chronic, with ulcer and inflammation Status: Chronic Current Visit: Yes Qualifiers: Laterality: left Code(s): I87.339 - Chronic venous hypertension (idiopathic) with ulcer and inflammation of unspecified lower extremity; L97.909 - Non-pressure chronic ulcer of unspecified part of unspecified lower leg with unspecified severity (5) Venous stasis ulcer Status: Chronic Current Visit: Yes Qualifiers: Venous stasis ulcer site: calf Varicose vein presence: with varicose veins Laterality: left Non-pressure ulcer stage: with fat layer exposed Qualified Code(s): I83.022 - Varicose veins of left lower extremity with ulcer of calf; L97.222 - Non-pressure chronic ulcer of left calf with fat layer exposed Code(s): I83.009 - Varicose veins of unspecified lower extremity with ulcer of unspecified site; L97.909 - Non-pressure chronic ulcer of unspecified part of unspecified lower leg with unspecified severity (6) Hyperpigmentation Status: Chronic Current Visit: Yes Code(s): L81.9 - Disorder of pigmentation, unspecified (7) Lipodermatosclerosis Status: Chronic Current Visit: Yes Qualifiers: Laterality: left Qualified Code(s): I83.12 - Varicose veins of left lower extremity with inflammation Code(s): I83.10 - Varicose veins of unspecified lower extremity with inflammation (8) Obesity (BMI 30-39.9) Status: Chronic Current Visit: No Code(s): E66.9 - Obesity, unspecified History of Present Illness Chief Complaint: Chronic venous insufficiency, venous hypertension with inflammation and ulceration, venous stasis ulceration?left medial calf History of Wound: This is a 72-year-old male with an ulceration of the left medial calf, which has been present since February 2018. Patient has a history of chronic venous insufficiency, venous hypertension with inflammation and ulceration, and venous stasis ulceration. He has been treated at the [facility] since February 2018, relative to the ulceration on the left medial calf. It temporarily healed, but recurred within a matter of days. He has previously undergone endothermal ablation of incompetent superficial veins in the right lower extremity, performed in 2012. A venous study performed in April 2013 revealed successful ablation of the right great saphenous vein anterior accessory saphenous veins. In recent months, the patient has been using Shalonda or Promogran topically to the ulceration on the left medial calf, and has undergone serial debridements. He owns graduated compression stockings of 20-30 mmHg compression, which he typically wears on a daily basis. The patient denies a history of thrombophlebitis. Patient has recently undergone a noninvasive lower extremity arterial study, dated May 10, 2018, which revealed no evidence of significant arterial occlusive disease in the lower extremities. Venous duplex examination revealed valvular incompetence involving the left great saphenous vein and the left small saphenous vein. Past Medical History Past Medical History: Chronic Problems Open wound (Chronic) Non-healing wound of lower extremity (Chronic) Chronic venous insufficiency (Chronic) Venous hypertension, chronic, with ulcer and inflammation (Chronic) Venous stasis ulcer (Chronic) Hyperpigmentation (Chronic) Lipodermatosclerosis (Chronic) Obesity (BMI 30-39.9) (Chronic) Surgical History: - - The patient has previously undergone endovenous laser ablation of incompetent superficial veins in the right lower extremity. He also has undergone several anorectal surgical procedures. A sigmoid colon resection was performed in June 2017. Allergies/Adverse Reactions: Allergies amoxicillin [From Augmentin] Adverse Reaction (Verified 07/20/17 22:35) Abd cramps/diarrhea clavulanic acid [From Augmentin] Adverse Reaction (Verified 07/20/17 22:35) Abd cramps/diarrhea ibuprofen [From Motrin] Adverse Reaction (Verified 07/20/17 22:35) Other Home Medications: Ambulatory Orders Medication Instructions Recorded Calcium Citrate - Vit D Tablet 600 mg PO DAILY 07/08/17 Finasteride [Proscar] 5 mg PO QHS 07/08/17 L.acidoph,Paracasei, B.lactis 1 each PO DAILY 07/08/17 [Probiotic] Lorazepam [Ativan] 0.5 mg PO DAILY PRN PRN 07/08/17 Meloxicam [Mobic] 15 mg PO QODAY 07/08/17 Multivit-Min/FA/Lycopen/Lutein 1 tab PO DAILY 07/08/17 [Centrum Silver Men Tablet] Pantoprazole Sodium [Protonix] 40 mg PO QODAY 07/08/17 Tamsulosin HCl [Flomax] 0.4 mg PO DAILY 07/08/17 Oxycodone [Oxyir] 5 mg PO Q4H PRN PRN 7 Days #20 tab 07/14/17 Venlafaxine XR [Effexor Xr] 37.5 mg PO DAILY capsule 07/14/17 - Family History Paternal - - The patient's father at the age of 80 with a history of coronary artery disease. Maternal - - The patient's mother at the age of 90 with a history of renal insufficiency. Smoking Status: Never smoker Tobacco Use: Non-smoker Review of Systems Constitutional: Denies: Chills, Fever, Weight Change Eyes: Denies: Pain, Vision Change HEENT: Denies: Difficulty Hearing, Difficulty Swallowing, Sinus Congestion Cardiovascular: Denies: Chest Pain, Palpitations Respiratory: Denies: Cough, Shortness of Breath Gastrointestinal: Denies: Diarrhea, Nausea, Vomiting Genitourinary: Denies: Dysuria, Hematuria Endocrine: Denies: Heat/ Cold Intolerance, Polydipsia, Polyuria Hematologic/ Lymphatic: Denies: Easy Bruising, Easy Bleeding - Physical Exam Vital Signs Temp Pulse Resp BP 96.9 F L 76 16 136/68 H 08/20/18 08:12 08/20/18 08:12 08/20/18 08:12 08/20/18 08:12 General: Alert, Oriented x3, Cooperative, No apparent distress, Well developed, Well nourished HEENT: Atraumatic, PERRLA, EOMI, Normocephalic Oral: Moist Mucosa Neck: No JVD Lungs: Normal air movement Abdomen: Non-Distended Extremities: No clubbing, No cyanosis, No edema, No Calf Tenderness, - - The ulceration on the left medial calf is little changed in size or appearance. Dimensions are documented elsewhere. There is no sign of infection or cellulitis. There is only a minimal amount of bioburden. The base of the ulceration is generally pink and healthy in appearance, and appears to be well vascularized. Skin: No rashes Wound Measurements and Assessment WC - Nurse 2 - General Ulcer CM Notes Start: 08/20/18 08:12 Freq: Status: Active Protocol: Activity Type Activity Date Activity User E-Sign Co-Sign Detail Recorded Client Recorded Date Recorded By Document 08/26/18 13:45 DV [id number] 08/26/18 13:54 DV 08/26/18 13:45 Wound Center Nurse 2 [Procedure/Treatment] #2 LEFT LOWER LEG -Time 13:46 -Correct Patient Yes -Correct Side, Site, Position Yes -Correct Procedure Yes -Procedure Performed Yes -Type of Procedure Debridement -Clinical Debridement Subcutaneous -Post Debridement Size (cm) - Length 1.0 -Post Debridement Size (cm) - Width 1.2 -Post Debridement Size (cm) - Depth 0.1 -Total Square Cm 1.20 -Wound/Ulcer Outcome Not Healed -Ulcer Cleansing Rinsed/ Irrigated with Saline -Foul Odor after Cleansing No -Bioengineered Tissue Yes -Type of bioengineered Tissue EPIFIX -Expiration Date 01/12/23 -Product Lot Number [id number] -Percent Used 100 -Bleeding Controlled with Pressure -Treatment Response Procedure Tolerated Well [See Physician Procedure note for Specifics] Pain Scale: 0-10 Numeric [Pain] -Is Patient Pain Free? No Musculoskeletal: No Muscle Wasting Neurological: Cranial nerves II-XII grossly intact, Neuro grossly intact Psych/Mental Status: Normal Affect, Appropriate, Alert and oriented to time, place, person, mood and affect Debridement Note Post-Debridement Measurements/Treatment WC - Nurse 2 - General Ulcer CM Notes Start: 08/20/18 08:12 Freq: Status: Active Protocol: Activity Type Activity Date Activity User E-Sign Co-Sign Detail Recorded Client Recorded Date Recorded By Document 08/20/18 08:35 DV [id number] 08/20/18 08:37 DV Document 08/26/18 13:45 DV [id number] 08/26/18 13:54 DV 08/20/18 08/26/18 08:35 13:45 Wound Center Nurse 2 #2 LEFT LOWER LEG -Time 08:35 13:46 -Correct Patient Yes Yes -Correct Side, Site, Position Yes Yes -Correct Procedure Yes Yes -Procedure Performed Yes Yes -Type of Procedure Debridement Debridement -Clinical Debridement Subcutaneous Subcutaneous -Post Debridement Size (cm) - Length 0.9 1.0 -Post Debridement Size (cm) - Width 0.8 1.2 -Post Debridement Size (cm) - Depth 0.1 0.1 -Total Square Cm 0.72 1.20 -Wound/Ulcer Outcome Not Healed Not Healed -Ulcer Cleansing Rinsed/ Rinsed/ Irrigated with Irrigated with Saline Saline -Foul Odor after Cleansing No No -Bioengineered Tissue No Yes -Type of bioengineered Tissue EPIFIX -Expiration Date 01/12/23 -Product Lot Number [id number] -Percent Used 100 -Bleeding Controlled with Pressure Pressure -Offloading No -Treatment Response Procedure Procedure Tolerated Well Tolerated Well Pain Scale: 0-10 Numeric Is Patient Pain Free? Yes No Laterality: Left - Medial calf Type of Debridement: Excisional debridement Anesthesia Used: 5% Lidocaine Gel Depth: Down to and including healthy tissue, in the subcutaneous layer Percentage of wound debrided: 100 Instrument Used: 3mm curette Severity: Fat Layer Exposed Amount of bleeding with debridement: Mild Bleeding Controlled with: Compression and gauze Patient tolerated procedure well Following a routine excisional debridement, which was well tolerated, an 18 mm EpiFix allograft was applied topically to the ulcer surface. Upon removal from its sterile packaging, the epi fix was cut and fashioned to the appropriate size and dimensions. He was then placed topically. The small amount of blood from the recent debridement was sufficient to moisten the allograft. A nonadherent layer of wound veil, then gauze, was applied topically, and anchored in place with Steri-Strips. The patient tolerated the procedure well. Assessment/Plan Active Problems Open wound (Chronic) Non-healing wound of lower extremity (Chronic) Chronic venous insufficiency (Chronic) Venous hypertension, chronic, with ulcer and inflammation (Chronic) Venous stasis ulcer (Chronic) Hyperpigmentation (Chronic) Lipodermatosclerosis (Chronic) Assessment: This is a 72-year-old male with a long-standing history of chronic venous insufficiency, venous hypertension with inflammation and ulceration, etc. He presents with an ulceration of the left medial calf, appearing to be related to his chronic venous disease. He is otherwise generally healthy. The patient's recent venous duplex examination reveals incompetence of the left great and small saphenous veins. His noninvasive lower extremity arterial study is normal. The patient's recent biopsy of the left calf ulceration is negative for malignancy, and reveals results as expected, namely chronic inflammatory processes. The patient's recent culture results have been noted, and discussed with the patient. Rare Staphylococcus epidermidis were noted, thought to be skin myles, not thought to be worthy of antibiotic administration. Plan: Conservative treatment measures have been implemented, and will be continued. Patient is to continue sleeping on a flat mattress at night. He is to elevate his legs to heart level, or higher, even during daytime hours. Avoidance of idle standing and sitting has been recommended. The patient is to remain active. Activity has been encouraged. Weight loss has been advised. Compression is to be continued by means of graduated compression stockings of 20-30 mmHg compression, which the patient possesses. The patient is to leave his allograft and associated dressing in place and undisturbed for the next week. He will return in 1 week for reassessment, where it is anticipated that another allograft will be placed. We have again discussed endovenous ablation of the incompetent superficial veins in the left lower extremity, a procedure which may be of benefit. The procedure has been explained in detail. The indications and risks of the procedure have been thoroughly discussed. Approval has been obtained for endovenous laser ablation. The endovenous laser ablation procedure is scheduled for the near future. Appropriate expectations have also been explained. The patient indicates his desire to proceed. The patient is to return in 1 week for reevaluation. The patient is non-smoker. Influenza vaccine was not administered today. Patient weighs 270 pounds. He stands 6 feet 0 inches in height. BMI is 36.6. This places him in a class II obesity category. Weight loss has been recommended, in collaboration with the patient's primary care physician has been advised.
[2018-09-02 12:02] VITALS: BP 151/75; PULSE 73; RESP 18; TEMP 35.8; BMI 36.6
--- NOTE | 2018-09-02 12:50 | PCM.WC.HP ---
(1) Open wound Status: Chronic Current Visit: Yes Code(s): T14.8XXA - Other injury of unspecified body region, initial encounter (2) Non-healing wound of lower extremity Status: Chronic Current Visit: Yes Qualifiers: Encounter type: subsequent encounter Laterality: left Qualified Code(s): S81.802D - Unspecified open wound, left lower leg, subsequent encounter Code(s): S81.809A - Unspecified open wound, unspecified lower leg, initial encounter (3) Chronic venous insufficiency Status: Chronic Current Visit: Yes Code(s): I87.2 - Venous insufficiency (chronic) (peripheral) (4) Venous hypertension, chronic, with ulcer and inflammation Status: Chronic Current Visit: Yes Qualifiers: Laterality: left Code(s): I87.339 - Chronic venous hypertension (idiopathic) with ulcer and inflammation of unspecified lower extremity; L97.909 - Non-pressure chronic ulcer of unspecified part of unspecified lower leg with unspecified severity (5) Venous stasis ulcer Status: Chronic Current Visit: Yes Qualifiers: Venous stasis ulcer site: calf Varicose vein presence: with varicose veins Laterality: left Non-pressure ulcer stage: with fat layer exposed Qualified Code(s): I83.022 - Varicose veins of left lower extremity with ulcer of calf; L97.222 - Non-pressure chronic ulcer of left calf with fat layer exposed Code(s): I83.009 - Varicose veins of unspecified lower extremity with ulcer of unspecified site; L97.909 - Non-pressure chronic ulcer of unspecified part of unspecified lower leg with unspecified severity (6) Hyperpigmentation Status: Chronic Current Visit: Yes Code(s): L81.9 - Disorder of pigmentation, unspecified (7) Lipodermatosclerosis Status: Chronic Current Visit: Yes Qualifiers: Laterality: left Qualified Code(s): I83.12 - Varicose veins of left lower extremity with inflammation Code(s): I83.10 - Varicose veins of unspecified lower extremity with inflammation (8) Obesity (BMI 30-39.9) Status: Chronic Current Visit: No Code(s): E66.9 - Obesity, unspecified History of Present Illness Chief Complaint: Chronic venous insufficiency, venous hypertension with inflammation and ulceration, venous stasis ulceration?left medial calf History of Wound: This is a 72-year-old male with an ulceration of the left medial calf, which has been present since February 2018. Patient has a history of chronic venous insufficiency, venous hypertension with inflammation and ulceration, and venous stasis ulceration. He has been treated at the [facility] since February 2018, relative to the ulceration on the left medial calf. It temporarily healed, but recurred within a matter of days. He has previously undergone endothermal ablation of incompetent superficial veins in the right lower extremity, performed in 2012. A venous study performed in April 2013 revealed successful ablation of the right great saphenous vein anterior accessory saphenous veins. In recent months, the patient has been using Shalonda or Promogran topically to the ulceration on the left medial calf, and has undergone serial debridements. He owns graduated compression stockings of 20-30 mmHg compression, which he typically wears on a daily basis. The patient denies a history of thrombophlebitis. Patient has recently undergone a noninvasive lower extremity arterial study, dated May 10, 2018, which revealed no evidence of significant arterial occlusive disease in the lower extremities. Venous duplex examination revealed valvular incompetence involving the left great saphenous vein and the left small saphenous vein. Past Medical History Past Medical History: Chronic Problems Open wound (Chronic) Non-healing wound of lower extremity (Chronic) Chronic venous insufficiency (Chronic) Venous hypertension, chronic, with ulcer and inflammation (Chronic) Venous stasis ulcer (Chronic) Hyperpigmentation (Chronic) Lipodermatosclerosis (Chronic) Obesity (BMI 30-39.9) (Chronic) Surgical History: - - The patient has previously undergone endovenous laser ablation of incompetent superficial veins in the right lower extremity. He also has undergone several anorectal surgical procedures. A sigmoid colon resection was performed in June 2017. Allergies/Adverse Reactions: Allergies amoxicillin [From Augmentin] Adverse Reaction (Verified 07/20/17 22:35) Abd cramps/diarrhea clavulanic acid [From Augmentin] Adverse Reaction (Verified 07/20/17 22:35) Abd cramps/diarrhea ibuprofen [From Motrin] Adverse Reaction (Verified 07/20/17 22:35) Other Home Medications: Ambulatory Orders Medication Instructions Recorded Calcium Citrate - Vit D Tablet 600 mg PO DAILY 07/08/17 Finasteride [Proscar] 5 mg PO QHS 07/08/17 L.acidoph,Paracasei, B.lactis 1 each PO DAILY 07/08/17 [Probiotic] Lorazepam [Ativan] 0.5 mg PO DAILY PRN PRN 07/08/17 Meloxicam [Mobic] 15 mg PO QODAY 07/08/17 Multivit-Min/FA/Lycopen/Lutein 1 tab PO DAILY 07/08/17 [Centrum Silver Men Tablet] Pantoprazole Sodium [Protonix] 40 mg PO QODAY 07/08/17 Tamsulosin HCl [Flomax] 0.4 mg PO DAILY 07/08/17 Oxycodone [Oxyir] 5 mg PO Q4H PRN PRN 7 Days #20 tab 07/14/17 Venlafaxine XR [Effexor Xr] 37.5 mg PO DAILY capsule 07/14/17 - Family History Paternal - - The patient's father at the age of 80 with a history of coronary artery disease. Maternal - - The patient's mother at the age of 90 with a history of renal insufficiency. Smoking Status: Never smoker Tobacco Use: Non-smoker Review of Systems Constitutional: Denies: Chills, Fever, Weight Change Eyes: Denies: Pain, Vision Change HEENT: Denies: Difficulty Hearing, Difficulty Swallowing, Sinus Congestion Cardiovascular: Denies: Chest Pain, Palpitations Respiratory: Denies: Cough, Shortness of Breath Gastrointestinal: Denies: Diarrhea, Nausea, Vomiting Genitourinary: Denies: Dysuria, Hematuria Endocrine: Denies: Heat/ Cold Intolerance, Polydipsia, Polyuria Hematologic/ Lymphatic: Denies: Easy Bruising, Easy Bleeding - Physical Exam Vital Signs Temp Pulse Resp BP 96.4 F L 73 18 151/75 H 09/02/18 12:02 09/02/18 12:02 09/02/18 12:02 09/02/18 12:02 General: Alert, Oriented x3, Cooperative, No apparent distress, Well developed, Well nourished HEENT: Atraumatic, PERRLA, EOMI, Normocephalic Oral: Moist Mucosa Neck: No JVD Lungs: Normal air movement Abdomen: Non-Distended Extremities: No clubbing, No cyanosis, No edema, No Calf Tenderness, - - There is no significant swelling or edema in the left lower extremity. The ulceration on the left medial calf persists. It is slightly smaller in size. Dimensions are documented elsewhere. There is no sign of infection or cellulitis. There is a small amount of bioburden. Base of the ulceration is generally pink and healthy in appearance, with active granulation tissue. Skin: No rashes Wound Measurements and Assessment WC - Nurse 1 - General Ulcer Measurement Start: 08/20/18 08:12 Freq: Status: Active Protocol: Activity Type Activity Date Activity User E-Sign Co-Sign Detail Recorded Client Recorded Date Recorded By Document 09/02/18 12:02 DL [id number] 09/02/18 12:13 DL 09/02/18 12:02 Wound Center Nurse 1 [Ulcer Assessment] #2 LEFT LOWER LEG -Current Size (cm) - Length 0.4 -Current Size (cm) - Width 0.3 -Current Size (cm) - Depth 0.1 -Total Square Cm 0.12 -Photo Taken No -Exudate Amt Small -Exudate Type Serosanguineous -Wound Margin Distinct, Outline Attached -Granulation Amt Small (1-33%) -Granulation Quality [place] -Necrosis Amt None Present (0 %) -Structure Exposed N/A -Texture (Aye-wound Skin Appearance) Scarring -Moisture (Aye-wound Skin Appearance No Abnormality ) -Color (Aye-wound Skin Appearance) Hemosiderin Staining -Tenderness on Palpation (Aye-wound No Skin Appearance) -Ulcer Cleansing Wound Cleanser -Foul Odor after Cleansing No -Anesthetic Used 5% Lidocaine Gel [Edema Assessment] -Left Calf (cm) 37.5 -Left Ankle (cm) 22.2 WC - Nurse 2 - General Ulcer CM Notes Start: 08/20/18 08:12 Freq: Status: Active Protocol: Activity Type Activity Date Activity User E-Sign Co-Sign Detail Recorded Client Recorded Date Recorded By Document 09/02/18 12:47 DV [id number] 09/02/18 12:49 DV 09/02/18 12:47 Wound Center Nurse 2 [Procedure/Treatment] #2 LEFT LOWER LEG -Time 12:47 -Correct Patient Yes -Correct Side, Site, Position Yes -Correct Procedure Yes -Procedure Performed Yes -Type of Procedure Debridement -Clinical Debridement Subcutaneous -Post Debridement Size (cm) - Length 0.4 -Post Debridement Size (cm) - Width 0.9 -Post Debridement Size (cm) - Depth 0.2 -Total Square Cm 0.36 -Wound/Ulcer Outcome Not Healed -Ulcer Cleansing Rinsed/ Irrigated with Saline -Foul Odor after Cleansing No -Bioengineered Tissue Yes -Type of bioengineered Tissue EPIFIX -Expiration Date 02/11/23 -Product Lot Number [id number] -Percent Used 100 -Saline Lot Number [id number] -Topical Lidocaine (%) 5 -Bleeding Controlled with Pressure -Offloading No -Treatment Response Procedure Tolerated Well [See Physician Procedure note for Specifics] Pain Scale: 0-10 Numeric [Pain] -Is Patient Pain Free? Yes Musculoskeletal: No Muscle Wasting Neurological: Cranial nerves II-XII grossly intact, Neuro grossly intact Psych/Mental Status: Normal Affect, Appropriate, Alert and oriented to time, place, person, mood and affect Debridement Note Post-Debridement Measurements/Treatment WC - Nurse 2 - General Ulcer CM Notes Start: 08/20/18 08:12 Freq: Status: Active Protocol: Activity Type Activity Date Activity User E-Sign Co-Sign Detail Recorded Client Recorded Date Recorded By Document 08/20/18 08:35 DV [id number] 08/20/18 08:37 DV Document 08/26/18 13:45 DV [id number] 08/26/18 13:54 DV Document 09/02/18 12:47 DV [id number] 09/02/18 12:49 DV 08/20/18 08/26/18 09/02/18 08:35 13:45 12:47 Wound Center Nurse 2 #2 LEFT LOWER LEG -Time 08:35 13:46 12:47 -Correct Patient Yes Yes Yes -Correct Side, Site, Position Yes Yes Yes -Correct Procedure Yes Yes Yes -Procedure Performed Yes Yes Yes -Type of Procedure Debridement Debridement Debridement -Clinical Debridement Subcutaneous Subcutaneous Subcutaneous -Post Debridement Size (cm) - Length 0.9 1.0 0.4 -Post Debridement Size (cm) - Width 0.8 1.2 0.9 -Post Debridement Size (cm) - Depth 0.1 0.1 0.2 -Total Square Cm 0.72 1.20 0.36 -Wound/Ulcer Outcome Not Healed Not Healed Not Healed -Ulcer Cleansing Rinsed/ Rinsed/ Rinsed/ Irrigated with Irrigated with Irrigated with Saline Saline Saline -Foul Odor after Cleansing No No No -Bioengineered Tissue No Yes Yes -Type of bioengineered Tissue EPIFIX EPIFIX -Expiration Date 01/12/23 02/11/23 -Product Lot Number [id number] -Percent Used 100 100 -Saline Lot Number [id number] -Topical Lidocaine (%) 5 -Bleeding Controlled with Pressure Pressure Pressure -Offloading No No -Treatment Response Procedure Procedure Procedure Tolerated Well Tolerated Well Tolerated Well Pain Scale: 0-10 Numeric Is Patient Pain Free? Yes No Yes Laterality: Left - Medial calf Type of Debridement: Excisional debridement Anesthesia Used: 5% Lidocaine Gel Depth: Down to and including healthy tissue, in the subcutaneous layer Percentage of wound debrided: 100 Instrument Used: 5mm curette Severity: Fat Layer Exposed Amount of bleeding with debridement: Mild Bleeding Controlled with: Compression and gauze Patient tolerated procedure well Following a routine excisional debridement, which was well tolerated by the patient, an 18 mm EpiFix allograft was applied topically. After removing the allograft from its sterile packaging, it was cut and fashioned to the appropriate size and shape. It was then placed topically, and moistened with sterile saline. Wound veil and gauze were applied, which were then anchored in place using Steri-Strips. The procedure was well tolerated. Assessment/Plan Active Problems Open wound (Chronic) Non-healing wound of lower extremity (Chronic) Chronic venous insufficiency (Chronic) Venous hypertension, chronic, with ulcer and inflammation (Chronic) Venous stasis ulcer (Chronic) Hyperpigmentation (Chronic) Lipodermatosclerosis (Chronic) Assessment: This is a 72-year-old male with a long-standing history of chronic venous insufficiency, venous hypertension with inflammation and ulceration, etc. He presents with an ulceration of the left medial calf, appearing to be related to his chronic venous disease. He is otherwise generally healthy. The patient's recent venous duplex examination reveals incompetence of the left great and small saphenous veins. His noninvasive lower extremity arterial study is normal. The patient's recent biopsy of the left calf ulceration is negative for malignancy, and reveals results as expected, namely chronic inflammatory processes. The patient's recent culture results have been noted, and discussed with the patient. Rare Staphylococcus epidermidis were noted, thought to be skin myles, not thought to be worthy of antibiotic administration. Plan: Conservative treatment measures have been implemented, and will be continued. Patient is to continue sleeping on a flat mattress at night. He is to elevate his legs to heart level, or higher, even during daytime hours. Avoidance of idle standing and sitting has been recommended. The patient is to remain active. Activity has been encouraged. Weight loss has been advised. Compression is to be continued by means of graduated compression stockings of 20-30 mmHg compression, which the patient possesses. The patient is to leave his allograft and associated dressing in place and undisturbed for the next week. Today's allograft application represents the second such of EpiFix The patient will return in 1 week for reassessment, where it is anticipated that another allograft will be placed. We have again discussed endovenous ablation of the incompetent superficial veins in the left lower extremity, a procedure which may be of benefit. The procedure has been explained in detail. The indications and risks of the procedure have been thoroughly discussed. Approval has been obtained for endovenous laser ablation. The endovenous laser ablation procedure is scheduled for the near future. Appropriate expectations have also been explained. The patient indicates his desire to proceed. The patient is to return in 1 week for reevaluation. The patient is non-smoker. Influenza vaccine was not administered today. Patient weighs 270 pounds. He stands 6 feet 0 inches in height. BMI is 36.6. This places him in a class II obesity category. Weight loss has been recommended, in collaboration with the patient's primary care physician has been advised.
--- NOTE | 2018-09-02 12:55 | HP.PCM_ITS ---
(1) Open wound Status: Chronic Current Visit: Yes Code(s): T14.8XXA - Other injury of unspecified body region, initial encounter (2) Non-healing wound of lower extremity Status: Chronic Current Visit: Yes Qualifiers: Encounter type: subsequent encounter Laterality: left Qualified Code(s): S81.802D - Unspecified open wound, left lower leg, subsequent encounter Code(s): S81.809A - Unspecified open wound, unspecified lower leg, initial encounter (3) Chronic venous insufficiency Status: Chronic Current Visit: Yes Code(s): I87.2 - Venous insufficiency (chronic) (peripheral) (4) Venous hypertension, chronic, with ulcer and inflammation Status: Chronic Current Visit: Yes Qualifiers: Laterality: left Code(s): I87.339 - Chronic venous hypertension (idiopathic) with ulcer and inflammation of unspecified lower extremity; L97.909 - Non-pressure chronic ulcer of unspecified part of unspecified lower leg with unspecified severity (5) Venous stasis ulcer Status: Chronic Current Visit: Yes Qualifiers: Venous stasis ulcer site: calf Varicose vein presence: with varicose veins Laterality: left Non-pressure ulcer stage: with fat layer exposed Qualified Code(s): I83.022 - Varicose veins of left lower extremity with ulcer of calf; L97.222 - Non-pressure chronic ulcer of left calf with fat layer exposed Code(s): I83.009 - Varicose veins of unspecified lower extremity with ulcer of unspecified site; L97.909 - Non-pressure chronic ulcer of unspecified part of unspecified lower leg with unspecified severity (6) Hyperpigmentation Status: Chronic Current Visit: Yes Code(s): L81.9 - Disorder of pigmentation, unspecified (7) Lipodermatosclerosis Status: Chronic Current Visit: Yes Qualifiers: Laterality: left Qualified Code(s): I83.12 - Varicose veins of left lower extremity with inflammation Code(s): I83.10 - Varicose veins of unspecified lower extremity with inflammation (8) Obesity (BMI 30-39.9) Status: Chronic Current Visit: No Code(s): E66.9 - Obesity, unspecified History of Present Illness Chief Complaint: Chronic venous insufficiency, venous hypertension with inflammation and ulceration, venous stasis ulceration?left medial calf History of Wound: This is a 72-year-old male with an ulceration of the left medial calf, which has been present since February 2018. Patient has a history of chronic venous insufficiency, venous hypertension with inflammation and ulceration, and venous stasis ulceration. He has been treated at the [facility] since February 2018, relative to the ulceration on the left medial calf. It temporarily healed, but recurred within a matter of days. He has previously undergone endothermal ablation of incompetent superficial veins in the right lower extremity, performed in 2012. A venous study performed in April 2013 revealed successful ablation of the right great saphenous vein anterior accessory saphenous veins. In recent months, the patient has been using Shalonda or Promogran topically to the ulceration on the left medial calf, and has undergone serial debridements. He owns graduated compression stockings of 20-30 mmHg compression, which he typically wears on a daily basis. The patient denies a history of thrombophlebitis. Patient has recently undergone a noninvasive lower extremity arterial study, dated May 10, 2018, which revealed no evidence of significant arterial occlusive disease in the lower extremities. Venous duplex examination revealed valvular incompetence involving the left great saphenous vein and the left small saphenous vein. Past Medical History Past Medical History: Chronic Problems Open wound (Chronic) Non-healing wound of lower extremity (Chronic) Chronic venous insufficiency (Chronic) Venous hypertension, chronic, with ulcer and inflammation (Chronic) Venous stasis ulcer (Chronic) Hyperpigmentation (Chronic) Lipodermatosclerosis (Chronic) Obesity (BMI 30-39.9) (Chronic) Surgical History: - - The patient has previously undergone endovenous laser ablation of incompetent superficial veins in the right lower extremity. He also has undergone several anorectal surgical procedures. A sigmoid colon resection was performed in June 2017. Allergies/Adverse Reactions: Allergies amoxicillin [From Augmentin] Adverse Reaction (Verified 07/20/17 22:35) Abd cramps/diarrhea clavulanic acid [From Augmentin] Adverse Reaction (Verified 07/20/17 22:35) Abd cramps/diarrhea ibuprofen [From Motrin] Adverse Reaction (Verified 07/20/17 22:35) Other Home Medications: Ambulatory Orders Medication Instructions Recorded Calcium Citrate - Vit D Tablet 600 mg PO DAILY 07/08/17 Finasteride [Proscar] 5 mg PO QHS 07/08/17 L.acidoph,Paracasei, B.lactis 1 each PO DAILY 07/08/17 [Probiotic] Lorazepam [Ativan] 0.5 mg PO DAILY PRN PRN 07/08/17 Meloxicam [Mobic] 15 mg PO QODAY 07/08/17 Multivit-Min/FA/Lycopen/Lutein 1 tab PO DAILY 07/08/17 [Centrum Silver Men Tablet] Pantoprazole Sodium [Protonix] 40 mg PO QODAY 07/08/17 Tamsulosin HCl [Flomax] 0.4 mg PO DAILY 07/08/17 Oxycodone [Oxyir] 5 mg PO Q4H PRN PRN 7 Days #20 tab 07/14/17 Venlafaxine XR [Effexor Xr] 37.5 mg PO DAILY capsule 07/14/17 - Family History Paternal - - The patient's father at the age of 80 with a history of coronary artery disease. Maternal - - The patient's mother at the age of 90 with a history of renal insufficiency. Smoking Status: Never smoker Tobacco Use: Non-smoker Review of Systems Constitutional: Denies: Chills, Fever, Weight Change Eyes: Denies: Pain, Vision Change HEENT: Denies: Difficulty Hearing, Difficulty Swallowing, Sinus Congestion Cardiovascular: Denies: Chest Pain, Palpitations Respiratory: Denies: Cough, Shortness of Breath Gastrointestinal: Denies: Diarrhea, Nausea, Vomiting Genitourinary: Denies: Dysuria, Hematuria Endocrine: Denies: Heat/ Cold Intolerance, Polydipsia, Polyuria Hematologic/ Lymphatic: Denies: Easy Bruising, Easy Bleeding - Physical Exam Vital Signs Temp Pulse Resp BP 96.4 F L 73 18 151/75 H 09/02/18 12:02 09/02/18 12:02 09/02/18 12:02 09/02/18 12:02 General: Alert, Oriented x3, Cooperative, No apparent distress, Well developed, Well nourished HEENT: Atraumatic, PERRLA, EOMI, Normocephalic Oral: Moist Mucosa Neck: No JVD Lungs: Normal air movement Abdomen: Non-Distended Extremities: No clubbing, No cyanosis, No edema, No Calf Tenderness, - - There is no significant swelling or edema in the left lower extremity. The ulceration on the left medial calf persists. It is slightly smaller in size. Dimensions are documented elsewhere. There is no sign of infection or cellulitis. There is a small amount of bioburden. Base of the ulceration is generally pink and healthy in appearance, with active granulation tissue. Skin: No rashes Wound Measurements and Assessment WC - Nurse 1 - General Ulcer Measurement Start: 08/20/18 08:12 Freq: Status: Active Protocol: Activity Type Activity Date Activity User E-Sign Co-Sign Detail Recorded Client Recorded Date Recorded By Document 09/02/18 12:02 DL [id number] 09/02/18 12:13 DL 09/02/18 12:02 Wound Center Nurse 1 [Ulcer Assessment] #2 LEFT LOWER LEG -Current Size (cm) - Length 0.4 -Current Size (cm) - Width 0.3 -Current Size (cm) - Depth 0.1 -Total Square Cm 0.12 -Photo Taken No -Exudate Amt Small -Exudate Type Serosanguineous -Wound Margin Distinct, Outline Attached -Granulation Amt Small (1-33%) -Granulation Quality [place] -Necrosis Amt None Present (0 %) -Structure Exposed N/A -Texture (Aye-wound Skin Appearance) Scarring -Moisture (Aye-wound Skin Appearance No Abnormality ) -Color (Aye-wound Skin Appearance) Hemosiderin Staining -Tenderness on Palpation (Aye-wound No Skin Appearance) -Ulcer Cleansing Wound Cleanser -Foul Odor after Cleansing No -Anesthetic Used 5% Lidocaine Gel [Edema Assessment] -Left Calf (cm) 37.5 -Left Ankle (cm) 22.2 WC - Nurse 2 - General Ulcer CM Notes Start: 08/20/18 08:12 Freq: Status: Active Protocol: Activity Type Activity Date Activity User E-Sign Co-Sign Detail Recorded Client Recorded Date Recorded By Document 09/02/18 12:47 DV [id number] 09/02/18 12:49 DV 09/02/18 12:47 Wound Center Nurse 2 [Procedure/Treatment] #2 LEFT LOWER LEG -Time 12:47 -Correct Patient Yes -Correct Side, Site, Position Yes -Correct Procedure Yes -Procedure Performed Yes -Type of Procedure Debridement -Clinical Debridement Subcutaneous -Post Debridement Size (cm) - Length 0.4 -Post Debridement Size (cm) - Width 0.9 -Post Debridement Size (cm) - Depth 0.2 -Total Square Cm 0.36 -Wound/Ulcer Outcome Not Healed -Ulcer Cleansing Rinsed/ Irrigated with Saline -Foul Odor after Cleansing No -Bioengineered Tissue Yes -Type of bioengineered Tissue EPIFIX -Expiration Date 02/11/23 -Product Lot Number [id number] -Percent Used 100 -Saline Lot Number [id number] -Topical Lidocaine (%) 5 -Bleeding Controlled with Pressure -Offloading No -Treatment Response Procedure Tolerated Well [See Physician Procedure note for Specifics] Pain Scale: 0-10 Numeric [Pain] -Is Patient Pain Free? Yes Musculoskeletal: No Muscle Wasting Neurological: Cranial nerves II-XII grossly intact, Neuro grossly intact Psych/Mental Status: Normal Affect, Appropriate, Alert and oriented to time, place, person, mood and affect Debridement Note Post-Debridement Measurements/Treatment WC - Nurse 2 - General Ulcer CM Notes Start: 08/20/18 08:12 Freq: Status: Active Protocol: Activity Type Activity Date Activity User E-Sign Co-Sign Detail Recorded Client Recorded Date Recorded By Document 08/20/18 08:35 DV [id number] 08/20/18 08:37 DV Document 08/26/18 13:45 DV [id number] 08/26/18 13:54 DV Document 09/02/18 12:47 DV [id number] 09/02/18 12:49 DV 08/20/18 08/26/18 09/02/18 08:35 13:45 12:47 Wound Center Nurse 2 #2 LEFT LOWER LEG -Time 08:35 13:46 12:47 -Correct Patient Yes Yes Yes -Correct Side, Site, Position Yes Yes Yes -Correct Procedure Yes Yes Yes -Procedure Performed Yes Yes Yes -Type of Procedure Debridement Debridement Debridement -Clinical Debridement Subcutaneous Subcutaneous Subcutaneous -Post Debridement Size (cm) - Length 0.9 1.0 0.4 -Post Debridement Size (cm) - Width 0.8 1.2 0.9 -Post Debridement Size (cm) - Depth 0.1 0.1 0.2 -Total Square Cm 0.72 1.20 0.36 -Wound/Ulcer Outcome Not Healed Not Healed Not Healed -Ulcer Cleansing Rinsed/ Rinsed/ Rinsed/ Irrigated with Irrigated with Irrigated with Saline Saline Saline -Foul Odor after Cleansing No No No -Bioengineered Tissue No Yes Yes -Type of bioengineered Tissue EPIFIX EPIFIX -Expiration Date 01/12/23 02/11/23 -Product Lot Number [id number] -Percent Used 100 100 -Saline Lot Number [id number] -Topical Lidocaine (%) 5 -Bleeding Controlled with Pressure Pressure Pressure -Offloading No No -Treatment Response Procedure Procedure Procedure Tolerated Well Tolerated Well Tolerated Well Pain Scale: 0-10 Numeric Is Patient Pain Free? Yes No Yes Laterality: Left - Medial calf Type of Debridement: Excisional debridement Anesthesia Used: 5% Lidocaine Gel Depth: Down to and including healthy tissue, in the subcutaneous layer Percentage of wound debrided: 100 Instrument Used: 5mm curette Severity: Fat Layer Exposed Amount of bleeding with debridement: Mild Bleeding Controlled with: Compression and gauze Patient tolerated procedure well Following a routine excisional debridement, which was well tolerated by the patient, an 18 mm EpiFix allograft was applied topically. After removing the allograft from its sterile packaging, it was cut and fashioned to the appropriate size and shape. It was then placed topically, and moistened with sterile saline. Wound veil and gauze were applied, which were then anchored in place using Steri-Strips. The procedure was well tolerated. Assessment/Plan Active Problems Open wound (Chronic) Non-healing wound of lower extremity (Chronic) Chronic venous insufficiency (Chronic) Venous hypertension, chronic, with ulcer and inflammation (Chronic) Venous stasis ulcer (Chronic) Hyperpigmentation (Chronic) Lipodermatosclerosis (Chronic) Assessment: This is a 72-year-old male with a long-standing history of chronic venous insufficiency, venous hypertension with inflammation and ulceration, etc. He presents with an ulceration of the left medial calf, appearing to be related to his chronic venous disease. He is otherwise generally healthy. The patient's recent venous duplex examination reveals incompetence of the left great and small saphenous veins. His noninvasive lower extremity arterial study is normal. The patient's recent biopsy of the left calf ulceration is negative for malignancy, and reveals results as expected, namely chronic inflammatory processes. The patient's recent culture results have been noted, and discussed with the patient. Rare Staphylococcus epidermidis were noted, thought to be skin myles, not thought to be worthy of antibiotic administration. Plan: Conservative treatment measures have been implemented, and will be continued. Patient is to continue sleeping on a flat mattress at night. He is to elevate his legs to heart level, or higher, even during daytime hours. Avoidance of idle standing and sitting has been recommended. The patient is to remain active. Activity has been encouraged. Weight loss has been advised. Compression is to be continued by means of graduated compression stockings of 20-30 mmHg compression, which the patient possesses. The patient is to leave his allograft and associated dressing in place and undisturbed for the next week. Today's allograft application represents the second such of EpiFix The patient will return in 1 week for reassessment, where it is anticipated that another allograft will be placed. We have again discussed endovenous ablation of the incompetent superficial veins in the left lower extremity, a procedure which may be of benefit. The procedure has been explained in detail. The indications and risks of the procedure have been thoroughly discussed. Approval has been obtained for endovenous laser ablation. The endovenous laser ablation procedure is scheduled for the near future. Appropriate expectations have also been explained. The patient indicates his desire to proceed. The patient is to return in 1 week for reevaluation. The patient is non-smoker. Influenza vaccine was not administered today. Patient weighs 270 pounds. He stands 6 feet 0 inches in height. BMI is 36.6. This places him in a class II obesity category. Weight loss has been recommended, in collaboration with the patient's primary care physician has been advised.
[2018-09-10 08:06] VITALS: BP 142/81; PULSE 71; RESP 16; TEMP 35.8; BMI 36.6
--- NOTE | 2018-09-10 08:44 | PCM.WC.HP ---
(1) Open wound Status: Chronic Current Visit: Yes Code(s): T14.8XXA - Other injury of unspecified body region, initial encounter (2) Non-healing wound of lower extremity Status: Chronic Current Visit: Yes Qualifiers: Encounter type: subsequent encounter Laterality: left Qualified Code(s): S81.802D - Unspecified open wound, left lower leg, subsequent encounter Code(s): S81.809A - Unspecified open wound, unspecified lower leg, initial encounter (3) Chronic venous insufficiency Status: Chronic Current Visit: Yes Code(s): I87.2 - Venous insufficiency (chronic) (peripheral) (4) Venous hypertension, chronic, with ulcer and inflammation Status: Chronic Current Visit: Yes Qualifiers: Laterality: left Code(s): I87.339 - Chronic venous hypertension (idiopathic) with ulcer and inflammation of unspecified lower extremity; L97.909 - Non-pressure chronic ulcer of unspecified part of unspecified lower leg with unspecified severity (5) Venous stasis ulcer Status: Chronic Current Visit: Yes Qualifiers: Venous stasis ulcer site: calf Varicose vein presence: with varicose veins Laterality: left Non-pressure ulcer stage: with fat layer exposed Qualified Code(s): I83.022 - Varicose veins of left lower extremity with ulcer of calf; L97.222 - Non-pressure chronic ulcer of left calf with fat layer exposed Code(s): I83.009 - Varicose veins of unspecified lower extremity with ulcer of unspecified site; L97.909 - Non-pressure chronic ulcer of unspecified part of unspecified lower leg with unspecified severity (6) Hyperpigmentation Status: Chronic Current Visit: Yes Code(s): L81.9 - Disorder of pigmentation, unspecified (7) Lipodermatosclerosis Status: Chronic Current Visit: Yes Qualifiers: Laterality: left Qualified Code(s): I83.12 - Varicose veins of left lower extremity with inflammation Code(s): I83.10 - Varicose veins of unspecified lower extremity with inflammation (8) Obesity (BMI 30-39.9) Status: Chronic Current Visit: No Code(s): E66.9 - Obesity, unspecified History of Present Illness Chief Complaint: Chronic venous insufficiency, venous hypertension with inflammation and ulceration, venous stasis ulceration?left medial calf History of Wound: This is a 72-year-old male with an ulceration of the left medial calf, which has been present since February 2018. Patient has a history of chronic venous insufficiency, venous hypertension with inflammation and ulceration, and venous stasis ulceration. He has been treated at the [facility] since February 2018, relative to the ulceration on the left medial calf. It temporarily healed, but recurred within a matter of days. He has previously undergone endothermal ablation of incompetent superficial veins in the right lower extremity, performed in 2012. A venous study performed in April 2013 revealed successful ablation of the right great saphenous vein anterior accessory saphenous veins. In recent months, the patient has been using Shalonda or Promogran topically to the ulceration on the left medial calf, and has undergone serial debridements. He owns graduated compression stockings of 20-30 mmHg compression, which he typically wears on a daily basis. The patient denies a history of thrombophlebitis. Patient has recently undergone a noninvasive lower extremity arterial study, dated May 10, 2018, which revealed no evidence of significant arterial occlusive disease in the lower extremities. Venous duplex examination revealed valvular incompetence involving the left great saphenous vein and the left small saphenous vein. Past Medical History Past Medical History: Chronic Problems Open wound (Chronic) Non-healing wound of lower extremity (Chronic) Chronic venous insufficiency (Chronic) Venous hypertension, chronic, with ulcer and inflammation (Chronic) Venous stasis ulcer (Chronic) Hyperpigmentation (Chronic) Lipodermatosclerosis (Chronic) Obesity (BMI 30-39.9) (Chronic) Surgical History: - - The patient has previously undergone endovenous laser ablation of incompetent superficial veins in the right lower extremity. He also has undergone several anorectal surgical procedures. A sigmoid colon resection was performed in June 2017. Allergies/Adverse Reactions: Allergies amoxicillin [From Augmentin] Adverse Reaction (Verified 07/20/17 22:35) Abd cramps/diarrhea clavulanic acid [From Augmentin] Adverse Reaction (Verified 07/20/17 22:35) Abd cramps/diarrhea ibuprofen [From Motrin] Adverse Reaction (Verified 07/20/17 22:35) Other Home Medications: Ambulatory Orders Medication Instructions Recorded Calcium Citrate - Vit D Tablet 600 mg PO DAILY 07/08/17 Finasteride [Proscar] 5 mg PO QHS 07/08/17 L.acidoph,Paracasei, B.lactis 1 each PO DAILY 07/08/17 [Probiotic] Lorazepam [Ativan] 0.5 mg PO DAILY PRN PRN 07/08/17 Meloxicam [Mobic] 15 mg PO QODAY 07/08/17 Multivit-Min/FA/Lycopen/Lutein 1 tab PO DAILY 07/08/17 [Centrum Silver Men Tablet] Pantoprazole Sodium [Protonix] 40 mg PO QODAY 07/08/17 Tamsulosin HCl [Flomax] 0.4 mg PO DAILY 07/08/17 Oxycodone [Oxyir] 5 mg PO Q4H PRN PRN 7 Days #20 tab 07/14/17 Venlafaxine XR [Effexor Xr] 37.5 mg PO DAILY capsule 07/14/17 - Family History Paternal - - The patient's father at the age of 80 with a history of coronary artery disease. Maternal - - The patient's mother at the age of 90 with a history of renal insufficiency. Smoking Status: Never smoker Tobacco Use: Non-smoker Review of Systems Constitutional: Denies: Chills, Fever, Weight Change Eyes: Denies: Pain, Vision Change HEENT: Denies: Difficulty Hearing, Difficulty Swallowing, Sinus Congestion Cardiovascular: Denies: Chest Pain, Palpitations Respiratory: Denies: Cough, Shortness of Breath Gastrointestinal: Denies: Diarrhea, Nausea, Vomiting Genitourinary: Denies: Dysuria, Hematuria Endocrine: Denies: Heat/ Cold Intolerance, Polydipsia, Polyuria Hematologic/ Lymphatic: Denies: Easy Bruising, Easy Bleeding - Physical Exam Vital Signs Temp Pulse Resp BP 96.4 F L 71 16 142/81 H 09/10/18 08:06 09/10/18 08:06 09/10/18 08:06 09/10/18 08:06 General: Alert, Oriented x3, Cooperative, No apparent distress, Well developed, Well nourished HEENT: Atraumatic, PERRLA, EOMI, Normocephalic Oral: Moist Mucosa Neck: No JVD Lungs: Normal air movement Abdomen: Non-Distended Extremities: No clubbing, No cyanosis, No edema, No Calf Tenderness, - - There is no significant swelling or edema in the patient's left lower extremity. The ulceration on the medial aspect of the left calf is smaller in size. There is evidence of peripheral epithelialization. The base of the ulceration is generally pink and healthy in appearance, with only a small amount of bioburden. There is no sign of infection or cellulitis. Dimensions are documented elsewhere. Skin: No rashes Wound Measurements and Assessment WC - Nurse 1 - General Ulcer Measurement Start: 08/20/18 08:12 Freq: Status: Active Protocol: Activity Type Activity Date Activity User E-Sign Co-Sign Detail Recorded Client Recorded Date Recorded By Document 09/10/18 08:06 MW [id number] 09/10/18 08:14 MW 09/10/18 08:06 Wound Center Nurse 1 [Ulcer Assessment] #2 LEFT LOWER LEG -Combined with other wound No -Current Size (cm) - Length 0.5 -Current Size (cm) - Width 0.5 -Current Size (cm) - Depth 0.1 -Total Square Cm 0.25 -Photo Taken No -Epithelialization Small 1-33% -Tunneling No -Undermining/Tunneling No -Circular Undermining No -Exudate Amt Small -Exudate Type Serous -Wound Margin Flat & Intact -Granulation Amt Medium (34-66%) -Granulation Quality [place] -Slough/Fibrin Yes -Necrosis Amt Small (1-33%) -Necrotic Tissue Type Adherent Slough -Structure Exposed N/A -Texture (Aye-wound Skin Appearance) Assessed Scarring -Moisture (Aye-wound Skin Appearance No Abnormality ) Assessed -Color (Aye-wound Skin Appearance) Assessed Hemosiderin Staining -Temperature (Aye-wound Skin No Abnormality Appearance) (Pt Warm) -Tenderness on Palpation (Aye-wound Yes Skin Appearance) -Ulcer Cleansing soap and water -Foul Odor after Cleansing No -Anesthetic Used 4% Lidocaine Solution [Edema Assessment] -Lower Limb Edema Present No WC - Nurse 2 - General Ulcer CM Notes Start: 08/20/18 08:12 Freq: Status: Active Protocol: Activity Type Activity Date Activity User E-Sign Co-Sign Detail Recorded Client Recorded Date Recorded By Document 09/10/18 08:26 DV [id number] 09/10/18 08:40 DV 09/10/18 08:26 Wound Center Nurse 2 [Procedure/Treatment] #2 LEFT LOWER LEG -Time 08:27 -Correct Patient Yes -Correct Side, Site, Position Yes -Correct Procedure Yes -Procedure Performed Yes -Type of Procedure Debridement -Clinical Debridement Subcutaneous -Post Debridement Size (cm) - Length 0.5 -Post Debridement Size (cm) - Width 0.6 -Post Debridement Size (cm) - Depth 0.1 -Total Square Cm 0.30 -Wound/Ulcer Outcome Not Healed -Ulcer Cleansing Rinsed/ Irrigated with Saline -Foul Odor after Cleansing No -Bioengineered Tissue Yes -Type of bioengineered Tissue EPIFIX -Expiration Date 02/11/23 -Product Lot Number [id number] -Percent Used 50 -Saline Lot Number [id number] -Topical Lidocaine (%) 5 -Bleeding Controlled with Pressure -Offloading No -Treatment Response Procedure Tolerated Well [See Physician Procedure note for Specifics] Pain Scale: 0-10 Numeric [Pain] -Is Patient Pain Free? Yes Musculoskeletal: No Muscle Wasting Neurological: Cranial nerves II-XII grossly intact, Neuro grossly intact Psych/Mental Status: Normal Affect, Appropriate, Alert and oriented to time, place, person, mood and affect Debridement Note Post-Debridement Measurements/Treatment WC - Nurse 2 - General Ulcer CM Notes Start: 08/20/18 08:12 Freq: Status: Active Protocol: Activity Type Activity Date Activity User E-Sign Co-Sign Detail Recorded Client Recorded Date Recorded By Document 08/20/18 08:35 DV [id number] 08/20/18 08:37 DV Document 08/26/18 13:45 DV [id number] 08/26/18 13:54 DV Document 09/02/18 12:47 DV [id number] 09/02/18 12:49 DV Document 09/10/18 08:26 DV [id number] 09/10/18 08:40 DV 08/20/18 08/26/18 09/02/18 08:35 13:45 12:47 Wound Center Nurse 2 #2 LEFT LOWER LEG -Time 08:35 13:46 12:47 -Correct Patient Yes Yes Yes -Correct Side, Site, Position Yes Yes Yes -Correct Procedure Yes Yes Yes -Procedure Performed Yes Yes Yes -Type of Procedure Debridement Debridement Debridement -Clinical Debridement Subcutaneous Subcutaneous Subcutaneous -Post Debridement Size (cm) - Length 0.9 1.0 0.4 -Post Debridement Size (cm) - Width 0.8 1.2 0.9 -Post Debridement Size (cm) - Depth 0.1 0.1 0.2 -Total Square Cm 0.72 1.20 0.36 -Wound/Ulcer Outcome Not Healed Not Healed Not Healed -Ulcer Cleansing Rinsed/ Rinsed/ Rinsed/ Irrigated with Irrigated with Irrigated with Saline Saline Saline -Foul Odor after Cleansing No No No -Bioengineered Tissue No Yes Yes -Type of bioengineered Tissue EPIFIX EPIFIX -Expiration Date 01/12/23 02/11/23 -Product Lot Number [id number] -Percent Used 100 100 -Saline Lot Number [id number] -Topical Lidocaine (%) 5 -Bleeding Controlled with Pressure Pressure Pressure -Offloading No No -Treatment Response Procedure Procedure Procedure Tolerated Well Tolerated Well Tolerated Well Pain Scale: 0-10 Numeric Is Patient Pain Free? Yes No Yes 09/10/18 08:26 Wound Center Nurse 2 #2 LEFT LOWER LEG -Time 08:27 -Correct Patient Yes -Correct Side, Site, Position Yes -Correct Procedure Yes -Procedure Performed Yes -Type of Procedure Debridement -Clinical Debridement Subcutaneous -Post Debridement Size (cm) - Length 0.5 -Post Debridement Size (cm) - Width 0.6 -Post Debridement Size (cm) - Depth 0.1 -Total Square Cm 0.30 -Wound/Ulcer Outcome Not Healed -Ulcer Cleansing Rinsed/ Irrigated with Saline -Foul Odor after Cleansing No -Bioengineered Tissue Yes -Type of bioengineered Tissue EPIFIX -Expiration Date 02/11/23 -Product Lot Number [id number] -Percent Used 50 -Saline Lot Number [id number] -Topical Lidocaine (%) 5 -Bleeding Controlled with Pressure -Offloading No -Treatment Response Procedure Tolerated Well Pain Scale: 0-10 Numeric Is Patient Pain Free? Yes Laterality: Left - Medial calf Type of Debridement: Excisional debridement Anesthesia Used: 5% Lidocaine Gel Depth: Down to and including healthy tissue, in the subcutaneous layer Percentage of wound debrided: 100 Instrument Used: 3mm curette Tissue Removed: Bioburden Severity: Fat Layer Exposed Amount of bleeding with debridement: Mild Bleeding Controlled with: Compression and gauze Patient tolerated procedure well A standard excisional debridement was performed, which was tolerated well by the patient. Following the completion of the excisional debridement, an 18 mm EpiFix allograft was selected for placement. Upon removal from its sterile packaging, the allograft was fashioned to the appropriate size and shape. There was then applied topically. It was then covered with wound veil and gauze, and the site was anchored securely using Steri-Strips. Patient tolerated the procedure well. Today's allograft application represents the third such application of EpiFix. Assessment/Plan Active Problems Open wound (Chronic) Non-healing wound of lower extremity (Chronic) Chronic venous insufficiency (Chronic) Venous hypertension, chronic, with ulcer and inflammation (Chronic) Venous stasis ulcer (Chronic) Hyperpigmentation (Chronic) Lipodermatosclerosis (Chronic) Assessment: This is a 72-year-old male with a long-standing history of chronic venous insufficiency, venous hypertension with inflammation and ulceration, etc. He presents with an ulceration of the left medial calf, appearing to be related to his chronic venous disease. He is otherwise generally healthy. The patient's recent venous duplex examination reveals incompetence of the left great and small saphenous veins. His noninvasive lower extremity arterial study is normal. The patient's recent biopsy of the left calf ulceration is negative for malignancy, and reveals results as expected, namely chronic inflammatory processes. The patient's recent culture results have been noted, and discussed with the patient. Rare Staphylococcus epidermidis were noted, thought to be skin myles, not thought to be worthy of antibiotic administration. Plan: Conservative treatment measures have been implemented, and will be continued. Patient is to continue sleeping on a flat mattress at night. He is to elevate his legs to heart level, or higher, even during daytime hours. Avoidance of idle standing and sitting has been recommended. The patient is to remain active. Activity has been encouraged. Weight loss has been advised. Compression is to be continued by means of graduated compression stockings of 20-30 mmHg compression, which the patient possesses. The patient is to leave his allograft and associated dressing in place and undisturbed for the next week. Today's allograft application represents the 3rd such of EpiFix The patient will return in 1 week for reassessment, where it is anticipated that another allograft will be placed. We have again discussed endovenous ablation of the incompetent superficial veins in the left lower extremity, a procedure which may be of benefit. The procedure has been explained in detail. The indications and risks of the procedure have been thoroughly discussed. Approval has been obtained for endovenous laser ablation. The endovenous laser ablation procedure is scheduled for the near future. Appropriate expectations have also been explained. The patient indicates his desire to proceed. The patient is to return in 1 week for reevaluation. The patient is non-smoker. Influenza vaccine was not administered today. Patient weighs 270 pounds. He stands 6 feet 0 inches in height. BMI is 36.6. This places him in a class II obesity category. Weight loss has been recommended, in collaboration with the patient's primary care physician has been advised.
--- NOTE | 2018-09-10 08:48 | HP.PCM_ITS ---
(1) Open wound Status: Chronic Current Visit: Yes Code(s): T14.8XXA - Other injury of unspecified body region, initial encounter (2) Non-healing wound of lower extremity Status: Chronic Current Visit: Yes Qualifiers: Encounter type: subsequent encounter Laterality: left Qualified Code(s): S81.802D - Unspecified open wound, left lower leg, subsequent encounter Code(s): S81.809A - Unspecified open wound, unspecified lower leg, initial encounter (3) Chronic venous insufficiency Status: Chronic Current Visit: Yes Code(s): I87.2 - Venous insufficiency (chronic) (peripheral) (4) Venous hypertension, chronic, with ulcer and inflammation Status: Chronic Current Visit: Yes Qualifiers: Laterality: left Code(s): I87.339 - Chronic venous hypertension (idiopathic) with ulcer and inflammation of unspecified lower extremity; L97.909 - Non-pressure chronic ulcer of unspecified part of unspecified lower leg with unspecified severity (5) Venous stasis ulcer Status: Chronic Current Visit: Yes Qualifiers: Venous stasis ulcer site: calf Varicose vein presence: with varicose veins Laterality: left Non-pressure ulcer stage: with fat layer exposed Qualified Code(s): I83.022 - Varicose veins of left lower extremity with ulcer of calf; L97.222 - Non-pressure chronic ulcer of left calf with fat layer exposed Code(s): I83.009 - Varicose veins of unspecified lower extremity with ulcer of unspecified site; L97.909 - Non-pressure chronic ulcer of unspecified part of unspecified lower leg with unspecified severity (6) Hyperpigmentation Status: Chronic Current Visit: Yes Code(s): L81.9 - Disorder of pigmentation, unspecified (7) Lipodermatosclerosis Status: Chronic Current Visit: Yes Qualifiers: Laterality: left Qualified Code(s): I83.12 - Varicose veins of left lower extremity with inflammation Code(s): I83.10 - Varicose veins of unspecified lower extremity with inflammation (8) Obesity (BMI 30-39.9) Status: Chronic Current Visit: No Code(s): E66.9 - Obesity, unspecified History of Present Illness Chief Complaint: Chronic venous insufficiency, venous hypertension with inflammation and ulceration, venous stasis ulceration?left medial calf History of Wound: This is a 72-year-old male with an ulceration of the left medial calf, which has been present since February 2018. Patient has a history of chronic venous insufficiency, venous hypertension with inflammation and ulceration, and venous stasis ulceration. He has been treated at the [facility] since February 2018, relative to the ulceration on the left medial calf. It temporarily healed, but recurred within a matter of days. He has previously undergone endothermal ablation of incompetent superficial veins in the right lower extremity, performed in 2012. A venous study performed in April 2013 revealed successful ablation of the right great saphenous vein anterior accessory saphenous veins. In recent months, the patient has been using Shalonda or Promogran topically to the ulceration on the left medial calf, and has undergone serial debridements. He owns graduated compression stockings of 20-30 mmHg compression, which he typically wears on a daily basis. The patient denies a history of thrombophlebitis. Patient has recently undergone a noninvasive lower extremity arterial study, dated May 10, 2018, which revealed no evidence of significant arterial occlusive disease in the lower extremities. Venous duplex examination revealed valvular incompetence involving the left great saphenous vein and the left small saphenous vein. Past Medical History Past Medical History: Chronic Problems Open wound (Chronic) Non-healing wound of lower extremity (Chronic) Chronic venous insufficiency (Chronic) Venous hypertension, chronic, with ulcer and inflammation (Chronic) Venous stasis ulcer (Chronic) Hyperpigmentation (Chronic) Lipodermatosclerosis (Chronic) Obesity (BMI 30-39.9) (Chronic) Surgical History: - - The patient has previously undergone endovenous laser ablation of incompetent superficial veins in the right lower extremity. He also has undergone several anorectal surgical procedures. A sigmoid colon resection was performed in June 2017. Allergies/Adverse Reactions: Allergies amoxicillin [From Augmentin] Adverse Reaction (Verified 07/20/17 22:35) Abd cramps/diarrhea clavulanic acid [From Augmentin] Adverse Reaction (Verified 07/20/17 22:35) Abd cramps/diarrhea ibuprofen [From Motrin] Adverse Reaction (Verified 07/20/17 22:35) Other Home Medications: Ambulatory Orders Medication Instructions Recorded Calcium Citrate - Vit D Tablet 600 mg PO DAILY 07/08/17 Finasteride [Proscar] 5 mg PO QHS 07/08/17 L.acidoph,Paracasei, B.lactis 1 each PO DAILY 07/08/17 [Probiotic] Lorazepam [Ativan] 0.5 mg PO DAILY PRN PRN 07/08/17 Meloxicam [Mobic] 15 mg PO QODAY 07/08/17 Multivit-Min/FA/Lycopen/Lutein 1 tab PO DAILY 07/08/17 [Centrum Silver Men Tablet] Pantoprazole Sodium [Protonix] 40 mg PO QODAY 07/08/17 Tamsulosin HCl [Flomax] 0.4 mg PO DAILY 07/08/17 Oxycodone [Oxyir] 5 mg PO Q4H PRN PRN 7 Days #20 tab 07/14/17 Venlafaxine XR [Effexor Xr] 37.5 mg PO DAILY capsule 07/14/17 - Family History Paternal - - The patient's father at the age of 80 with a history of coronary artery disease. Maternal - - The patient's mother at the age of 90 with a history of renal insufficiency. Smoking Status: Never smoker Tobacco Use: Non-smoker Review of Systems Constitutional: Denies: Chills, Fever, Weight Change Eyes: Denies: Pain, Vision Change HEENT: Denies: Difficulty Hearing, Difficulty Swallowing, Sinus Congestion Cardiovascular: Denies: Chest Pain, Palpitations Respiratory: Denies: Cough, Shortness of Breath Gastrointestinal: Denies: Diarrhea, Nausea, Vomiting Genitourinary: Denies: Dysuria, Hematuria Endocrine: Denies: Heat/ Cold Intolerance, Polydipsia, Polyuria Hematologic/ Lymphatic: Denies: Easy Bruising, Easy Bleeding - Physical Exam Vital Signs Temp Pulse Resp BP 96.4 F L 71 16 142/81 H 09/10/18 08:06 09/10/18 08:06 09/10/18 08:06 09/10/18 08:06 General: Alert, Oriented x3, Cooperative, No apparent distress, Well developed, Well nourished HEENT: Atraumatic, PERRLA, EOMI, Normocephalic Oral: Moist Mucosa Neck: No JVD Lungs: Normal air movement Abdomen: Non-Distended Extremities: No clubbing, No cyanosis, No edema, No Calf Tenderness, - - There is no significant swelling or edema in the patient's left lower extremity. The ulceration on the medial aspect of the left calf is smaller in size. There is evidence of peripheral epithelialization. The base of the ulceration is generally pink and healthy in appearance, with only a small amount of bioburden. There is no sign of infection or cellulitis. Dimensions are documented elsewhere. Skin: No rashes Wound Measurements and Assessment WC - Nurse 1 - General Ulcer Measurement Start: 08/20/18 08:12 Freq: Status: Active Protocol: Activity Type Activity Date Activity User E-Sign Co-Sign Detail Recorded Client Recorded Date Recorded By Document 09/10/18 08:06 MW [id number] 09/10/18 08:14 MW 09/10/18 08:06 Wound Center Nurse 1 [Ulcer Assessment] #2 LEFT LOWER LEG -Combined with other wound No -Current Size (cm) - Length 0.5 -Current Size (cm) - Width 0.5 -Current Size (cm) - Depth 0.1 -Total Square Cm 0.25 -Photo Taken No -Epithelialization Small 1-33% -Tunneling No -Undermining/Tunneling No -Circular Undermining No -Exudate Amt Small -Exudate Type Serous -Wound Margin Flat & Intact -Granulation Amt Medium (34-66%) -Granulation Quality Healy -Slough/Fibrin Yes -Necrosis Amt Small (1-33%) -Necrotic Tissue Type Adherent Slough -Structure Exposed N/A -Texture (Aye-wound Skin Appearance) Assessed Scarring -Moisture (Aye-wound Skin Appearance No Abnormality ) Assessed -Color (Aye-wound Skin Appearance) Assessed Hemosiderin Staining -Temperature (Aye-wound Skin No Abnormality Appearance) (Pt Warm) -Tenderness on Palpation (Aye-wound Yes Skin Appearance) -Ulcer Cleansing soap and water -Foul Odor after Cleansing No -Anesthetic Used 4% Lidocaine Solution [Edema Assessment] -Lower Limb Edema Present No WC - Nurse 2 - General Ulcer CM Notes Start: 08/20/18 08:12 Freq: Status: Active Protocol: Activity Type Activity Date Activity User E-Sign Co-Sign Detail Recorded Client Recorded Date Recorded By Document 09/10/18 08:26 DV [id number] 09/10/18 08:40 DV 09/10/18 08:26 Wound Center Nurse 2 [Procedure/Treatment] #2 LEFT LOWER LEG -Time 08:27 -Correct Patient Yes -Correct Side, Site, Position Yes -Correct Procedure Yes -Procedure Performed Yes -Type of Procedure Debridement -Clinical Debridement Subcutaneous -Post Debridement Size (cm) - Length 0.5 -Post Debridement Size (cm) - Width 0.6 -Post Debridement Size (cm) - Depth 0.1 -Total Square Cm 0.30 -Wound/Ulcer Outcome Not Healed -Ulcer Cleansing Rinsed/ Irrigated with Saline -Foul Odor after Cleansing No -Bioengineered Tissue Yes -Type of bioengineered Tissue EPIFIX -Expiration Date 02/11/23 -Product Lot Number [id number] -Percent Used 50 -Saline Lot Number [id number] -Topical Lidocaine (%) 5 -Bleeding Controlled with Pressure -Offloading No -Treatment Response Procedure Tolerated Well [See Physician Procedure note for Specifics] Pain Scale: 0-10 Numeric [Pain] -Is Patient Pain Free? Yes Musculoskeletal: No Muscle Wasting Neurological: Cranial nerves II-XII grossly intact, Neuro grossly intact Psych/Mental Status: Normal Affect, Appropriate, Alert and oriented to time, place, person, mood and affect Debridement Note Post-Debridement Measurements/Treatment WC - Nurse 2 - General Ulcer CM Notes Start: 08/20/18 08:12 Freq: Status: Active Protocol: Activity Type Activity Date Activity User E-Sign Co-Sign Detail Recorded Client Recorded Date Recorded By Document 08/20/18 08:35 DV [id number] 08/20/18 08:37 DV Document 08/26/18 13:45 DV [id number] 08/26/18 13:54 DV Document 09/02/18 12:47 DV [id number] 09/02/18 12:49 DV Document 09/10/18 08:26 DV [id number] 09/10/18 08:40 DV 08/20/18 08/26/18 09/02/18 08:35 13:45 12:47 Wound Center Nurse 2 #2 LEFT LOWER LEG -Time 08:35 13:46 12:47 -Correct Patient Yes Yes Yes -Correct Side, Site, Position Yes Yes Yes -Correct Procedure Yes Yes Yes -Procedure Performed Yes Yes Yes -Type of Procedure Debridement Debridement Debridement -Clinical Debridement Subcutaneous Subcutaneous Subcutaneous -Post Debridement Size (cm) - Length 0.9 1.0 0.4 -Post Debridement Size (cm) - Width 0.8 1.2 0.9 -Post Debridement Size (cm) - Depth 0.1 0.1 0.2 -Total Square Cm 0.72 1.20 0.36 -Wound/Ulcer Outcome Not Healed Not Healed Not Healed -Ulcer Cleansing Rinsed/ Rinsed/ Rinsed/ Irrigated with Irrigated with Irrigated with Saline Saline Saline -Foul Odor after Cleansing No No No -Bioengineered Tissue No Yes Yes -Type of bioengineered Tissue EPIFIX EPIFIX -Expiration Date 01/12/23 02/11/23 -Product Lot Number [id number] -Percent Used 100 100 -Saline Lot Number [id number] -Topical Lidocaine (%) 5 -Bleeding Controlled with Pressure Pressure Pressure -Offloading No No -Treatment Response Procedure Procedure Procedure Tolerated Well Tolerated Well Tolerated Well Pain Scale: 0-10 Numeric Is Patient Pain Free? Yes No Yes 09/10/18 08:26 Wound Center Nurse 2 #2 LEFT LOWER LEG -Time 08:27 -Correct Patient Yes -Correct Side, Site, Position Yes -Correct Procedure Yes -Procedure Performed Yes -Type of Procedure Debridement -Clinical Debridement Subcutaneous -Post Debridement Size (cm) - Length 0.5 -Post Debridement Size (cm) - Width 0.6 -Post Debridement Size (cm) - Depth 0.1 -Total Square Cm 0.30 -Wound/Ulcer Outcome Not Healed -Ulcer Cleansing Rinsed/ Irrigated with Saline -Foul Odor after Cleansing No -Bioengineered Tissue Yes -Type of bioengineered Tissue EPIFIX -Expiration Date 02/11/23 -Product Lot Number [id number] -Percent Used 50 -Saline Lot Number [id number] -Topical Lidocaine (%) 5 -Bleeding Controlled with Pressure -Offloading No -Treatment Response Procedure Tolerated Well Pain Scale: 0-10 Numeric Is Patient Pain Free? Yes Laterality: Left - Medial calf Type of Debridement: Excisional debridement Anesthesia Used: 5% Lidocaine Gel Depth: Down to and including healthy tissue, in the subcutaneous layer Percentage of wound debrided: 100 Instrument Used: 3mm curette Tissue Removed: Bioburden Severity: Fat Layer Exposed Amount of bleeding with debridement: Mild Bleeding Controlled with: Compression and gauze Patient tolerated procedure well A standard excisional debridement was performed, which was tolerated well by the patient. Following the completion of the excisional debridement, an 18 mm EpiFix allograft was selected for placement. Upon removal from its sterile packaging, the allograft was fashioned to the appropriate size and shape. There was then applied topically. It was then covered with wound veil and gauze, and the site was anchored securely using Steri-Strips. Patient tolerated the procedure well. Today's allograft application represents the third such application of EpiFix. Assessment/Plan Active Problems Open wound (Chronic) Non-healing wound of lower extremity (Chronic) Chronic venous insufficiency (Chronic) Venous hypertension, chronic, with ulcer and inflammation (Chronic) Venous stasis ulcer (Chronic) Hyperpigmentation (Chronic) Lipodermatosclerosis (Chronic) Assessment: This is a 72-year-old male with a long-standing history of chronic venous insufficiency, venous hypertension with inflammation and ulceration, etc. He presents with an ulceration of the left medial calf, appearing to be related to his chronic venous disease. He is otherwise generally healthy. The patient's recent venous duplex examination reveals incompetence of the left great and small saphenous veins. His noninvasive lower extremity arterial study is normal. The patient's recent biopsy of the left calf ulceration is negative for malignancy, and reveals results as expected, namely chronic inflammatory processes. The patient's recent culture results have been noted, and discussed with the patient. Rare Staphylococcus epidermidis were noted, thought to be skin myles, not thought to be worthy of antibiotic administration. Plan: Conservative treatment measures have been implemented, and will be continued. Patient is to continue sleeping on a flat mattress at night. He is to elevate his legs to heart level, or higher, even during daytime hours. Avoidance of idle standing and sitting has been recommended. The patient is to remain active. Activity has been encouraged. Weight loss has been advised. Compression is to be continued by means of graduated compression stockings of 20-30 mmHg compression, which the patient possesses. The patient is to leave his allograft and associated dressing in place and undisturbed for the next week. Today's allograft application represents the 3rd such of EpiFix The patient will return in 1 week for reassessment, where it is anticipated that another allograft will be placed. We have again discussed endovenous ablation of the incompetent superficial veins in the left lower extremity, a procedure which may be of benefit. The procedure has been explained in detail. The indications and risks of the procedure have been thoroughly discussed. Approval has been obtained for endovenous laser ablation. The endovenous laser ablation procedure is scheduled for the near future. Appropriate expectations have also been explained. The patient indicates his desire to proceed. The patient is to return in 1 week for reevaluation. The patient is non-smoker. Influenza vaccine was not administered today. Patient weighs 270 pounds. He stands 6 feet 0 inches in height. BMI is 36.6. This places him in a class II obesity category. Weight loss has been recommended, in collaboration with the patient's primary care physician has been advised.
== END 2018-09-10 23:59 ==
LOC: WC 08:00
PROVIDERS: Family Provider Family Medicine; PCP Family Medicine; Referring Provider Surgery; Visit Provider Surgery
DX: I83.222 Varicose veins of left lower extremity with both ulcer of calf and inflammation (principal); L97.222 Non-pressure chronic ulcer of left calf with fat layer exposed; E66.9 Obesity, unspecified; Z68.36 Body mass index [BMI] 36.0-36.9, adult; Z71.3 Dietary counseling and surveillance
CPT/HCPCS: 11042; 15271; Q4186

== ENCOUNTER 2018-10-01 08:00 | Outpatient (RCR) | payer MEDICARE, SELFPAY ==
[2018-09-11 00:53] VITALS: BP 142/81; PULSE 71; RESP 16; TEMP 35.8
[2018-09-17 08:11] VITALS: BP 119/70; PULSE 71; RESP 18; TEMP 36.5; BMI 36.6
--- NOTE | 2018-09-17 08:39 | HP.PCM_ITS ---
(1) Peripheral vascular disease of lower extremity with ulceration Status: Inactive Current Visit: No Code(s): I73.9 - Peripheral vascular disease, unspecified; L97.909 - Non-pressure chronic ulcer of unspecified part of unspecified lower leg with unspecified severity (2) Open wound Status: Chronic Current Visit: Yes Code(s): T14.8XXA - Other injury of unspecified body region, initial encounter (3) Non-healing wound of lower extremity Status: Chronic Current Visit: Yes Qualifiers: Encounter type: subsequent encounter Laterality: left Qualified Code(s): S81.802D - Unspecified open wound, left lower leg, subsequent encounter Code(s): S81.809A - Unspecified open wound, unspecified lower leg, initial encounter (4) Chronic venous insufficiency Status: Chronic Current Visit: Yes Code(s): I87.2 - Venous insufficiency (chronic) (peripheral) (5) Venous hypertension, chronic, with ulcer and inflammation Status: Chronic Current Visit: Yes Qualifiers: Laterality: left Code(s): I87.339 - Chronic venous hypertension (idiopathic) with ulcer and inflammation of unspecified lower extremity; L97.909 - Non-pressure chronic ulcer of unspecified part of unspecified lower leg with unspecified severity (6) Venous stasis ulcer Status: Chronic Current Visit: Yes Qualifiers: Venous stasis ulcer site: calf Laterality: left Non-pressure ulcer stage: with fat layer exposed Code(s): I83.009 - Varicose veins of unspecified lower extremity with ulcer of unspecified site; L97.909 - Non-pressure chronic ulcer of unspecified part of unspecified lower leg with unspecified severity (7) Hyperpigmentation Status: Chronic Current Visit: Yes Code(s): L81.9 - Disorder of pigmentation, unspecified (8) Lipodermatosclerosis Status: Chronic Current Visit: Yes Qualifiers: Laterality: left Code(s): I83.10 - Varicose veins of unspecified lower extremity with inflammation (9) Obesity (BMI 30-39.9) Status: Chronic Current Visit: No Code(s): E66.9 - Obesity, unspecified History of Present Illness Chief Complaint: Chronic venous insufficiency, venous hypertension with inflammation and ulceration, venous stasis ulceration?left medial calf History of Wound: This is a 72-year-old male with an ulceration of the left medial calf, which has been present since February 2018. Patient has a history of chronic venous insufficiency, venous hypertension with inflammation and ulceration, and venous stasis ulceration. He has been treated at the [facility] since February 2018, relative to the ulceration on the left medial calf. It temporarily healed, but recurred within a matter of days. He has previously undergone endothermal ablation of incompetent superficial veins in the right lower extremity, performed in 2012. A venous study performed in April 2013 revealed successful ablation of the right great saphenous vein anterior accessory saphenous veins. In recent months, the patient has been using Shalonda or Promogran topically to the ulceration on the left medial calf, and has undergone serial debridements. He owns graduated compression stockings of 20-30 mmHg compression, which he typically wears on a daily basis. The patient denies a history of thrombophlebitis. Patient has recently undergone a noninvasive lower extremity arterial study, dated May 10, 2018, which revealed no evidence of significant arterial occlusive disease in the lower extremities. Venous duplex examination revealed valvular incompetence involving the left great saphenous vein and the left small saphenous vein. Past Medical History Past Medical History: Chronic Problems Open wound (Chronic) Non-healing wound of lower extremity (Chronic) Chronic venous insufficiency (Chronic) Venous hypertension, chronic, with ulcer and inflammation (Chronic) Venous stasis ulcer (Chronic) Hyperpigmentation (Chronic) Lipodermatosclerosis (Chronic) Obesity (BMI 30-39.9) (Chronic) Surgical History: - - The patient has previously undergone endovenous laser ablation of incompetent superficial veins in the right lower extremity. He also has undergone several anorectal surgical procedures. A sigmoid colon resection was performed in June 2017. Allergies/Adverse Reactions: Allergies amoxicillin [From Augmentin] Adverse Reaction (Verified 07/20/17 22:35) Abd cramps/diarrhea clavulanic acid [From Augmentin] Adverse Reaction (Verified 07/20/17 22:35) Abd cramps/diarrhea ibuprofen [From Motrin] Adverse Reaction (Verified 07/20/17 22:35) Other Home Medications: Ambulatory Orders Medication Instructions Recorded Calcium Citrate - Vit D Tablet 600 mg PO DAILY 07/08/17 Finasteride [Proscar] 5 mg PO QHS 07/08/17 L.acidoph,Paracasei, B.lactis 1 each PO DAILY 07/08/17 [Probiotic] Lorazepam [Ativan] 0.5 mg PO DAILY PRN PRN 07/08/17 Meloxicam [Mobic] 15 mg PO QODAY 07/08/17 Multivit-Min/FA/Lycopen/Lutein 1 tab PO DAILY 07/08/17 [Centrum Silver Men Tablet] Pantoprazole Sodium [Protonix] 40 mg PO QODAY 07/08/17 Tamsulosin HCl [Flomax] 0.4 mg PO DAILY 07/08/17 Oxycodone [Oxyir] 5 mg PO Q4H PRN PRN 7 Days #20 tab 07/14/17 Venlafaxine XR [Effexor Xr] 37.5 mg PO DAILY capsule 07/14/17 - Family History Paternal - - The patient's father at the age of 80 with a history of coronary artery disease. Maternal - - The patient's mother at the age of 90 with a history of renal insufficiency. Smoking Status: Never smoker Tobacco Use: Non-smoker Review of Systems Constitutional: Denies: Chills, Fever, Weight Change Eyes: Denies: Pain, Vision Change HEENT: Denies: Difficulty Hearing, Difficulty Swallowing, Sinus Congestion Cardiovascular: Denies: Chest Pain, Palpitations Respiratory: Denies: Cough, Shortness of Breath Gastrointestinal: Denies: Diarrhea, Nausea, Vomiting Genitourinary: Denies: Dysuria, Hematuria Endocrine: Denies: Heat/ Cold Intolerance, Polydipsia, Polyuria Hematologic/ Lymphatic: Denies: Easy Bruising, Easy Bleeding - Physical Exam Vital Signs Temp Pulse Resp BP 97.7 F L 71 18 119/70 09/17/18 08:11 09/17/18 08:11 09/17/18 08:11 09/17/18 08:11 General: Alert, Oriented x3, Cooperative, No apparent distress, Well developed, Well nourished HEENT: Atraumatic, PERRLA, EOMI, Normocephalic Oral: Moist Mucosa Neck: No JVD Lungs: Normal air movement Abdomen: Non-Distended Extremities: No clubbing, No cyanosis, No edema, No Calf Tenderness, - - No significant swelling or edema are noted in the left lower extremity. Chronic hyperpigmentation and lipodermatosclerosis are noted on the medial aspect of the left calf. The ulceration of the left medial calf appears to now be essentially healed and epithelialized. There is no sign of infection or cellulitis. Skin: No rashes Wound Measurements and Assessment WC - Nurse 1 - General Ulcer Measurement Start: 09/17/18 08:10 Freq: Status: Active Protocol: Activity Type Activity Date Activity User E-Sign Co-Sign Detail Recorded Client Recorded Date Recorded By Document 09/17/18 08:11 DL [id number] 09/17/18 08:19 DL 09/17/18 08:11 Wound Center Nurse 1 [Ulcer Assessment] #2 LEFT LOWER LEG -Current Size (cm) - Length 0.1 -Current Size (cm) - Width 0.1 -Current Size (cm) - Depth 0.1 -Total Square Cm 0.01 -Photo Taken Yes -Exudate Amt None Present -Wound Margin Flat & Intact -Granulation Amt Large (67-100%) -Granulation Quality [place] -Necrosis Amt Small (1-33%) -Necrotic Tissue Type Adherent Slough -Structure Exposed N/A -Texture (Aye-wound Skin Appearance) Scarring -Moisture (Aey-wound Skin Appearance No Abnormality ) -Color (Aye-wound Skin Appearance) Hemosiderin Staining -Temperature (Aye-wound Skin No Abnormality Appearance) (Pt Warm) -Tenderness on Palpation (Aye-wound No Skin Appearance) -Ulcer Cleansing Rinsed/ Irrigated with Saline -Foul Odor after Cleansing No -Anesthetic Used 5% Lidocaine Gel WC - Nurse 2 - General Ulcer CM Notes Start: 09/17/18 08:10 Freq: Status: Active Protocol: Activity Type Activity Date Activity User E-Sign Co-Sign Detail Recorded Client Recorded Date Recorded By Document 09/17/18 08:31 DV [id number] 09/17/18 08:32 DV 09/17/18 08:31 Wound Center Nurse 2 [Procedure/Treatment] -Time 08:31 -Correct Patient Yes -Correct Side, Site, Position Yes -Correct Procedure No -Procedure Performed No -Wound/Ulcer Outcome Healed- Epithelialized [See Physician Procedure note for Specifics] Pain Scale: 0-10 Numeric [Pain] -Is Patient Pain Free? Yes Musculoskeletal: No Muscle Wasting Neurological: Cranial nerves II-XII grossly intact, Neuro grossly intact Psych/Mental Status: Normal Affect, Appropriate, Alert and oriented to time, place, person, mood and affect Debridement Note Post-Debridement Measurements/Treatment WC - Nurse 2 - General Ulcer CM Notes Start: 09/17/18 08:10 Freq: Status: Active Protocol: Activity Type Activity Date Activity User E-Sign Co-Sign Detail Recorded Client Recorded Date Recorded By Document 09/17/18 08:31 DV [id number] 09/17/18 08:32 DV 09/17/18 08:31 Wound Center Nurse 2 #2 LEFT LOWER LEG -Time 08:31 -Correct Patient Yes -Correct Side, Site, Position Yes -Correct Procedure No -Procedure Performed No -Wound/Ulcer Outcome Healed- Epithelialized Pain Scale: 0-10 Numeric Is Patient Pain Free? Yes No debridement was completed today - The patient's left medial calf ulceration appears to be essentially healed. Assessment/Plan Active Problems Open wound (Chronic) Non-healing wound of lower extremity (Chronic) Chronic venous insufficiency (Chronic) Venous hypertension, chronic, with ulcer and inflammation (Chronic) Venous stasis ulcer (Chronic) Hyperpigmentation (Chronic) Lipodermatosclerosis (Chronic) Assessment: This is a 72-year-old male with a long-standing history of chronic venous insufficiency, venous hypertension with inflammation and ulceration, etc. He presents with an ulceration of the left medial calf, appearing to be related to his chronic venous disease. He is otherwise generally healthy. The patient's recent venous duplex examination reveals incompetence of the left great and small saphenous veins. His noninvasive lower extremity arterial study is normal. The patient's recent biopsy of the left calf ulceration is negative for malignancy, and reveals results as expected, namely chronic inflammatory processes. The patient's recent culture results have been noted, and discussed with the patient. Rare Staphylococcus epidermidis were noted, thought to be skin myles, not thought to be worthy of antibiotic administration. Plan: The ulceration on the medial aspect of the patient's left calf appears to be totally healed and epithelialized at this juncture. We have elected to observe the site for an additional several weeks. No specific wound care product will be used. Rather, Adaptic and gauze will be placed over the site on a daily basis. The patient is to return in 1 week for reassessment, in an effort to assure complete healing has transpired. The patient is to continue with other conservative treatment measures which have been implemented. Patient is to continue sleeping on a flat mattress at night. He is to elevate his legs to heart level, or higher, even during daytime hours. Avoidance of idle standing and sitting has been recommended. The patient is to remain active. Activity has been encouraged. Weight loss has been advised. Compression is to be continued by means of graduated compression stockings of 20-30 mmHg compression, which the patient possesses. We have again discussed endovenous ablation of the incompetent superficial veins in the left lower extremity, a procedure which may be of benefit. The procedure has been explained in detail. The indications and risks of the procedure have been thoroughly discussed. Approval has been obtained for endovenous laser ablation. The endovenous laser ablation procedure is scheduled for the near future. Appropriate expectations have also been explained. The patient indicates his desire to proceed. The patient is to return in 2 weeks for reevaluation. The patient is non-smoker. Influenza vaccine was not administered today. Patient weighs 270 pounds. He stands 6 feet 0 inches in height. BMI is 36.6. This places him in a class II obesity category. Weight loss has been recommended, in collaboration with the patient's primary care physician has been advised.
[2018-10-01 08:12] VITALS: BP 134/69; PULSE 71; RESP 18; TEMP 36; BMI 36.6
--- NOTE | 2018-10-01 08:27 | PCM.WC.HP ---
(1) Open wound Status: Chronic Current Visit: Yes Code(s): T14.8XXA - Other injury of unspecified body region, initial encounter (2) Non-healing wound of lower extremity Status: Chronic Current Visit: Yes Qualifiers: Encounter type: subsequent encounter Laterality: left Qualified Code(s): S81.802D - Unspecified open wound, left lower leg, subsequent encounter Code(s): S81.809A - Unspecified open wound, unspecified lower leg, initial encounter (3) Chronic venous insufficiency Status: Chronic Current Visit: Yes Code(s): I87.2 - Venous insufficiency (chronic) (peripheral) (4) Venous hypertension, chronic, with ulcer and inflammation Status: Chronic Current Visit: Yes Qualifiers: Laterality: left Code(s): I87.339 - Chronic venous hypertension (idiopathic) with ulcer and inflammation of unspecified lower extremity; L97.909 - Non-pressure chronic ulcer of unspecified part of unspecified lower leg with unspecified severity (5) Venous stasis ulcer Status: Chronic Current Visit: Yes Qualifiers: Venous stasis ulcer site: calf Laterality: left Non-pressure ulcer stage: with fat layer exposed Code(s): I83.009 - Varicose veins of unspecified lower extremity with ulcer of unspecified site; L97.909 - Non-pressure chronic ulcer of unspecified part of unspecified lower leg with unspecified severity (6) Hyperpigmentation Status: Chronic Current Visit: Yes Code(s): L81.9 - Disorder of pigmentation, unspecified (7) Lipodermatosclerosis Status: Chronic Current Visit: Yes Qualifiers: Laterality: left Code(s): I83.10 - Varicose veins of unspecified lower extremity with inflammation (8) Obesity (BMI 30-39.9) Status: Chronic Current Visit: No Code(s): E66.9 - Obesity, unspecified History of Present Illness Chief Complaint: Chronic venous insufficiency, venous hypertension with inflammation and ulceration, venous stasis ulceration?left medial calf History of Wound: This is a 72-year-old male with an ulceration of the left medial calf, which has been present since February 2018. Patient has a history of chronic venous insufficiency, venous hypertension with inflammation and ulceration, and venous stasis ulceration. He has been treated at the [facility] since February 2018, relative to the ulceration on the left medial calf. It temporarily healed, but recurred within a matter of days. He has previously undergone endothermal ablation of incompetent superficial veins in the right lower extremity, performed in 2012. A venous study performed in April 2013 revealed successful ablation of the right great saphenous vein anterior accessory saphenous veins. In recent months, the patient has been using Shalonda or Promogran topically to the ulceration on the left medial calf, and has undergone serial debridements. He owns graduated compression stockings of 20-30 mmHg compression, which he typically wears on a daily basis. The patient denies a history of thrombophlebitis. Patient has recently undergone a noninvasive lower extremity arterial study, dated May 10, 2018, which revealed no evidence of significant arterial occlusive disease in the lower extremities. Venous duplex examination revealed valvular incompetence involving the left great saphenous vein and the left small saphenous vein. Past Medical History Past Medical History: Chronic Problems Open wound (Chronic) Non-healing wound of lower extremity (Chronic) Chronic venous insufficiency (Chronic) Venous hypertension, chronic, with ulcer and inflammation (Chronic) Venous stasis ulcer (Chronic) Hyperpigmentation (Chronic) Lipodermatosclerosis (Chronic) Obesity (BMI 30-39.9) (Chronic) Surgical History: - - The patient has previously undergone endovenous laser ablation of incompetent superficial veins in the right lower extremity. He also has undergone several anorectal surgical procedures. A sigmoid colon resection was performed in June 2017. Allergies/Adverse Reactions: Allergies amoxicillin [From Augmentin] Adverse Reaction (Verified 07/20/17 22:35) Abd cramps/diarrhea clavulanic acid [From Augmentin] Adverse Reaction (Verified 07/20/17 22:35) Abd cramps/diarrhea ibuprofen [From Motrin] Adverse Reaction (Verified 07/20/17 22:35) Other Home Medications: Ambulatory Orders Medication Instructions Recorded Calcium Citrate - Vit D Tablet 600 mg PO DAILY 07/08/17 Finasteride [Proscar] 5 mg PO QHS 07/08/17 L.acidoph,Paracasei, B.lactis 1 each PO DAILY 07/08/17 [Probiotic] Lorazepam [Ativan] 0.5 mg PO DAILY PRN PRN 07/08/17 Meloxicam [Mobic] 15 mg PO QODAY 07/08/17 Multivit-Min/FA/Lycopen/Lutein 1 tab PO DAILY 07/08/17 [Centrum Silver Men Tablet] Pantoprazole Sodium [Protonix] 40 mg PO QODAY 07/08/17 Tamsulosin HCl [Flomax] 0.4 mg PO DAILY 07/08/17 Oxycodone [Oxyir] 5 mg PO Q4H PRN PRN 7 Days #20 tab 07/14/17 Venlafaxine XR [Effexor Xr] 37.5 mg PO DAILY capsule 07/14/17 - Family History Paternal - - The patient's father at the age of 80 with a history of coronary artery disease. Maternal - - The patient's mother at the age of 90 with a history of renal insufficiency. Smoking Status: Never smoker Tobacco Use: Non-smoker Review of Systems Constitutional: Denies: Chills, Fever, Weight Change Eyes: Denies: Pain, Vision Change HEENT: Denies: Difficulty Hearing, Difficulty Swallowing, Sinus Congestion Cardiovascular: Denies: Chest Pain, Palpitations Respiratory: Denies: Cough, Shortness of Breath Gastrointestinal: Denies: Diarrhea, Nausea, Vomiting Genitourinary: Denies: Dysuria, Hematuria Endocrine: Denies: Heat/ Cold Intolerance, Polydipsia, Polyuria Hematologic/ Lymphatic: Denies: Easy Bruising, Easy Bleeding - Physical Exam Vital Signs Temp Pulse Resp BP 96.8 F L 71 18 134/69 H 10/01/18 08:12 10/01/18 08:12 10/01/18 08:12 10/01/18 08:12 General: Alert, Oriented x3, Cooperative, No apparent distress, Well developed, Well nourished HEENT: Atraumatic, PERRLA, EOMI, Normocephalic Oral: Moist Mucosa Neck: No JVD Lungs: Normal air movement Abdomen: Non-Distended Extremities: No clubbing, No cyanosis, No edema, No Calf Tenderness, - - There is no significant swelling or edema in the patient's lower extremities. The ulceration on the medial left calf is now completely epithelialized. The left calf ulceration is totally healed. There is no sign of infection or cellulitis. Skin: No rashes, No breakdown Wound Measurements and Assessment WC - Nurse 1 - General Ulcer Measurement Start: 09/17/18 08:10 Freq: Status: Active Protocol: Activity Type Activity Date Activity User E-Sign Co-Sign Detail Recorded Client Recorded Date Recorded By Document 10/01/18 08:12 AN [id number] 10/01/18 08:14 AN 10/01/18 08:12 Wound Center Nurse 1 [Ulcer Assessment] #2 LEFT LOWER LEG -Current Size (cm) - Length 0.1 -Current Size (cm) - Width 0.1 -Current Size (cm) - Depth 0.1 -Total Square Cm 0.01 - Nurse 2 - General Ulcer CM Notes Start: 09/17/18 08:10 Freq: Status: Active Protocol: Activity Type Activity Date Activity User E-Sign Co-Sign Detail Recorded Client Recorded Date Recorded By Document 10/01/18 08:26 DV [id number] 10/01/18 08:27 DV 10/01/18 08:26 Wound Center Nurse 2 [Procedure/Treatment] -Time 08:26 -Correct Patient Yes -Correct Side, Site, Position Yes -Correct Procedure No -Procedure Performed No -Post Debridement Size (cm) - Length 0 -Post Debridement Size (cm) - Width 0 -Post Debridement Size (cm) - Depth 0 -Total Square Cm 0 -Wound/Ulcer Outcome Healed- Epithelialized [See Physician Procedure note for Specifics] Musculoskeletal: No Muscle Wasting Neurological: Cranial nerves II-XII grossly intact, Neuro grossly intact Psych/Mental Status: Normal Affect, Appropriate, Alert and oriented to time, place, person, mood and affect Debridement Note Post-Debridement Measurements/Treatment - Nurse 2 - General Ulcer CM Notes Start: 09/17/18 08:10 Freq: Status: Active Protocol: Activity Type Activity Date Activity User E-Sign Co-Sign Detail Recorded Client Recorded Date Recorded By Document 09/17/18 08:31 DV [id number] 09/17/18 08:32 DV Document 10/01/18 08:26 DV [id number] 10/01/18 08:27 DV 09/17/18 10/01/18 08:31 08:26 Wound Center Nurse 2 #2 LEFT LOWER LEG -Time 08:31 08:26 -Correct Patient Yes Yes -Correct Side, Site, Position Yes Yes -Correct Procedure No No -Procedure Performed No No -Post Debridement Size (cm) - Length 0 -Post Debridement Size (cm) - Width 0 -Post Debridement Size (cm) - Depth 0 -Total Square Cm 0 -Wound/Ulcer Outcome Healed- Healed- Epithelialized Epithelialized Pain Scale: 0-10 Numeric Is Patient Pain Free? Yes No debridement was completed today Assessment/Plan Active Problems Open wound (Chronic) Non-healing wound of lower extremity (Chronic) Chronic venous insufficiency (Chronic) Venous hypertension, chronic, with ulcer and inflammation (Chronic) Venous stasis ulcer (Chronic) Hyperpigmentation (Chronic) Lipodermatosclerosis (Chronic) Assessment: This is a 72-year-old male with a long-standing history of chronic venous insufficiency, venous hypertension with inflammation and ulceration, etc. He presented with an ulceration of the left medial calf, appearing to be related to his chronic venous disease. He is otherwise generally healthy. The patient's recent venous duplex examination reveals incompetence of the left great and small saphenous veins. His noninvasive lower extremity arterial study was normal. The patient's recent biopsy of the left calf ulceration was negative for malignancy, and revealed results as expected, namely chronic inflammatory processes. He now appears to be completely healed and epithelialized. Plan: The ulceration on the medial aspect of the patient's left calf is totally healed and epithelialized. The [facility] The patient is to continue with conservative treatment measures which have been implemented. Patient is to continue sleeping on a flat mattress at night. He is to elevate his legs to heart level, or higher, even during daytime hours. Avoidance of idle standing and sitting has been recommended. The patient is to remain active. Activity has been encouraged. Weight loss has been advised. Compression is to be continued by means of graduated compression stockings of 20-30 mmHg compression, which the patient possesses. We have again discussed endovenous ablation of the incompetent superficial veins in the left lower extremity, a procedure which may be of benefit. The procedure has been explained in detail. The indications and risks of the procedure have been thoroughly discussed. Approval has been obtained for endovenous ablation. The endovenous ablation procedure is scheduled for the near future. Appropriate expectations have also been explained. The patient indicates his desire to proceed. The patient is to be discharged from further management at the [facility], as his left medial calf ulceration appears completely healed. The patient is non-smoker. Influenza vaccine was not administered today. Patient weighs 270 pounds. He stands 6 feet 0 inches in height. BMI is 36.6. This places him in a class II obesity category. Weight loss has been recommended, in collaboration with the patient's primary care physician has been advised.
== END 2018-10-11 23:59 ==
LOC: WC 08:00
PROVIDERS: Family Provider Family Medicine; PCP Family Medicine; Referring Provider Surgery; Visit Provider Surgery
DX: Z09 Encounter for follow-up examination after completed treatment for conditions other than malignant neoplasm (principal); I87.2 Venous insufficiency (chronic) (peripheral); E66.9 Obesity, unspecified; Z71.3 Dietary counseling and surveillance; Z68.36 Body mass index [BMI] 36.0-36.9, adult
CPT/HCPCS: 99212; G0463

== ENCOUNTER → 2019-01-06 | Outpatient (CLI) | payer MEDICARE, SELFPAY ==
[2018-12-10 10:27] VITALS: BMI 36.8
--- NOTE | 2019-01-06 09:52 | ECHOCS_ITS ---
Reason For Study: AO STENOSIS Procedure This was a 2D Doppler, Color Flow transthoracic echocardiogram. The study was technically difficult. Contrast injection was performed. Exam performed in department. Left Ventricle Normal size and thickness. The estimated ejection fraction is 65 %. Stage 2 diastolic dysfunction. No regional wall motion abnormalities noted. Right Ventricle Mildly dilated right ventricle. Normal systolic function. Atria The left atrium is mildly enlarged. Normal right atrium. Normal atrial septum. Mitral Valve The mitral valve is structurally normal. No prolapse or stenosis seen. Trivial posteriorly directed mitral valve insufficiency. Tricuspid Valve Normal tricuspid valve. Mild (1+) tricuspid valve insufficiency. Right ventricular systolic pressure estimated to be 14 mmHg. Aortic Valve Moderate focal aortic valve thickening. Moderate restriction of the aortic valve. Probably fixed non coronary cusp with relatively normal opening of right and left coronary cusps. Moderate aortic stenosis. Peak aortic valve gradient 50 mmHg. Mean aortic valve gradient 30 mmHg. Calculated aortic valve area (continuity equation) is 1.4 cm2. Pulmonic Valve Normal pulmonic valve. Great Vessels Normal aortic root. Normal arch. Normal inferior vena cava. Inferior vena cava collapse with sniff. Pericardium/Pleural No pericardial effusion. Medication 22 gauge I.V. with prn adaptor inserted into right arm. Diluted definity 3ml given slow IV push to enhance endocardial definition. MMode/2D Measurements & Calculations LVIDd: 4.5 cm IVSd: 1.1 cm LVOT diam: 2.2 cm LVIDs: 2.9 cm LVPWd: 0.98 cm RVDd: 4.2 cm FS: 35.8 % LVOT area: 3.8 cm2 LAV(MOD-bp): 64.6 ml EDV(MOD-sp4): 143.5 ml EDV(MOD-sp2): 121.8 ml LAV(MOD-bp) Indexed: 26.5 ml/m2 ESV(MOD-sp4): 49.6 ml EF(MOD-sp2): 59.3 % LAV(MOD-sp2): 51.1 ml EF(MOD-sp4): 65.4 % LAV(MOD-sp4): 80.5 ml SV(MOD-sp4): 93.9 ml SV(MOD-sp2): 72.2 ml LA A4 area: 25.6 cm2 LA dimension(2D): 3.9 cm RA A4 area: 18.0 cm2 Time Measurements MV dec time: 0.30 sec Doppler Measurements & Calculations MV E max matt: 95.5 cm/sec Lat Peak E' Matt: 6.9 cm/sec Med Peak E' Matt: 7.0 cm/sec MV A max matt: 96.7 cm/sec E/E' lat: 13.8 E/E' med: 13.6 MV E/A: 0.99 MV V2 max: 105.3 cm/sec Ao V2 max: 345.3 cm/sec LV V1 max: 124.9 cm/sec MV max P.4 mmHg Ao max P.7 mmHg LV V1 max P.2 mmHg MV V2 mean: 79.0 cm/sec Ao V2 mean: 257.0 cm/sec LV V1 mean P.7 mmHg MV mean P.7 mmHg Ao mean P.9 mmHg LV V1 mean: 90.4 cm/sec MV V2 VTI: 22.0 cm Ao V2 VTI: 71.7 cm LV V1 VTI: 26.5 cm MVA(VTI): 4.6 cm2 ADRIANA(I,D): 1.4 cm2 ADRIANA(V,D): 1.4 cm2 SV(LVOT): 101.2 ml PA V2 max: 118.0 cm/sec TR max matt: 148.2 cm/sec TR max P.8 mmHg MV P1/2t-pr_phl: 95.1 msec Interpretation Summary The estimated ejection fraction is 65 %. Stage 2 diastolic dysfunction. Mildly dilated right ventricle. The left atrium is mildly enlarged. Trivial posteriorly directed mitral valve insufficiency. Mild (1+) tricuspid valve insufficiency. Right ventricular systolic pressure estimated to be 14 mmHg. Probably fixed non coronary cusp with relatively normal opening of right and left coronary cusps. Moderate aortic stenosis. Peak aortic valve gradient 50 mmHg. Mean aortic valve gradient 30 mmHg. Calculated aortic valve area (continuity equation) is 1.4 cm2. Compared to echo report dated 07/11/2017, LV Function has remained the same, but aortic valvular gradients are worse. ADRIANA is about the same. Ordering Physician: Sohan Shukla Referring Physician: TALITA STEWART Performed By: Anuradha Zhang RDCS, RVT
== END | disposition home or self-care (01) ==
PROVIDERS: Family Provider Family Medicine; PCP Family Medicine; Referring Provider Internal Medicine Cardiovascular Disease; Visit Provider Internal Medicine Cardiovascular Disease
DX: I35.0 Nonrheumatic aortic (valve) stenosis (principal)
CPT/HCPCS: 93306; Q9957; A4216; C8929

== ENCOUNTER → 2019-01-08 | Outpatient (CLI) | payer MEDICARE, SELFPAY ==
[2018-12-10 10:27] VITALS: BMI 36.8
--- NOTE | 2019-01-08 09:29 | STEWCON_ITS ---
Reason For Study: Valve Replacement-Eval, Stress Results Protocol: Modified Shayne Protocol Maximum Predicted HR: 149 bpm Target HR: 127 bpm % Maximum Predicted HR: 90 % Heart Stage Duration Rate BP Comment (mm:ss) (bpm) Baseline 79 128/72No Chest Pain; Diluted Definity 3 ML Given Modified Shayne Protocol Stage 0 3:00 123 142/64No Chest Pain; Mild Dyspnea Modified Shayne Protocol Stage 1/2 3:00 125 154/64No Chest Pain; Mild Dyspnea Modified Shayne Protocol No Chest Pain; Moderate Dyspnea; Audible Soft Stage 1 3:00 134 184/70Expiratory Wheezes Recovery 86 130/70No Chest Pain Stress Duration: 9:00 mm:ss Maximum Stress HR: 134 bpm METS: 4 Baseline Echocardiogram Findings The estimated ejection fraction is 65 %. Stress Echo Wall motion Data Resting WM Intermediate WM Stress WM Resting Wall Motion Wall Motion Stress No regional wall motion No regional wall motion abnormalities noted. abnormalities noted. EKG Data The baseline ECG displays normal sinus rhythm. During stress, there were no ST or T wave changes noted to suggest ischemia. No clinical angina was noted. Doppler Measurements & Calculations Ao V2 max: 399.9 cm/sec Ao max P.0 mmHg Ao V2 mean: 294.2 cm/sec Ao mean P.8 mmHg Ao V2 VTI: 67.4 cm Interpretation Summary The estimated ejection fraction is 65 %. Normal, adequate, modified Shayne treadmill echocardiogram. Negative for ischemia by EKG and echocardiographic criteria. No anginal symptoms noted. Rare PVC noted. Appropriate blood pressure response to exercise. Average exercise capacity for age. Test terminated due to dyspnea and bilateral knee pain. Final LVEF is 75%. Decreased sensitivity due to failure to reach difficult echo windows requiring Definity agent. No complications. Peak/mean aortic gradients at peak exercise were 67/40mm Hg respectively. The study was technically difficult. Contrast injection was performed. Ordering Physician: Sohan Shukla Referring Physician: Antonio Rangel Performed By: Le Gamble, JONNIE, RVT
== END | disposition home or self-care (01) ==
PROVIDERS: Family Provider Family Medicine; PCP Family Medicine; Referring Provider Internal Medicine Cardiovascular Disease; Visit Provider Internal Medicine Cardiovascular Disease
DX: R06.02 Shortness of breath (principal); I35.0 Nonrheumatic aortic (valve) stenosis; E78.5 Hyperlipidemia, unspecified; I10 Essential (primary) hypertension
CPT/HCPCS: 93017; 93350; Q9957; A4216; C8928

== ENCOUNTER → 2019-06-17 08:23 | Outpatient (CLI) | payer MEDICARE, SELFPAY ==
[2019-06-12 10:19] VITALS: BMI 38.3
[2019-06-17 11:35] LABS: AST(SGOT) 21 U/L (15-37); Alanine Aminotransfer ALT/SGPT 34 U/L (16-61); Albumin, Serum 3.7 g/dL (3.2-5.0); Alkaline Phosphatase 59 U/L (45-117); Bilirubin, Direct 0.11 mg/dL (0.00-0.30); Cholesterol 178 mg/dL (200); Globulin 3.3 g/dL (2.2-4.2); High Density Lipoprotein 44 mg/dL; Triglycerides 87 mg/dL; Very Low Density Lipoprotein 17 mg/dL (5-40)
== END ==
PROVIDERS: PCP Family Medicine; Referring Provider Internal Medicine Cardiovascular Disease; Visit Provider Internal Medicine Cardiovascular Disease
DX: E78.5 Hyperlipidemia, unspecified (principal)
CPT/HCPCS: 36415; 80061; 80076

== ENCOUNTER → 2019-09-19 08:15 | Outpatient (CLI) | payer MEDICARE, SELFPAY ==
[2019-06-12 10:19] VITALS: BMI 38.3
[2019-09-19 09:23] LABS: AST(SGOT) 19 U/L (15-37); Alanine Aminotransfer ALT/SGPT 35 U/L (16-61); Albumin, Serum 3.6 g/dL (3.2-5.0); Alkaline Phosphatase 59 U/L (45-117); Bilirubin, Direct 0.16 mg/dL (0.00-0.30); Cholesterol 141 mg/dL (200); Globulin 3.4 g/dL (2.2-4.2); High Density Lipoprotein 39 mg/dL; Triglycerides 106 mg/dL; Very Low Density Lipoprotein 21 mg/dL (5-40)
== END ==
PROVIDERS: PCP Family Medicine; Referring Provider Internal Medicine Cardiovascular Disease; Visit Provider Internal Medicine Cardiovascular Disease
DX: E78.00 Pure hypercholesterolemia, unspecified (principal); E78.5 Hyperlipidemia, unspecified
CPT/HCPCS: 36415; 80061; 80076

== ENCOUNTER → 2019-12-31 08:55 | Outpatient (CLI) | payer MEDICARE, SELFPAY ==
[2019-06-12 10:19] VITALS: BMI 38.3
--- NOTE | 2019-12-31 08:59 | ECHOCS_ITS ---
Reason For Study: Valve evaluation Procedure This was a 2D Doppler, Color Flow transthoracic echocardiogram. The study was technically difficult. Contrast injection was performed. Exam performed in department. Left Ventricle Moderate concentric left ventricular hypertrophy. The estimated ejection fraction is 65 %. Stage 1 diastolic dysfunction. No regional wall motion abnormalities noted. Right Ventricle Normal size and thickness. Normal systolic function. Atria The left atrium is mildly enlarged. Normal right atrium. Normal atrial septum. Mitral Valve The mitral valve is structurally normal. No prolapse or stenosis seen. Tricuspid Valve Normal tricuspid valve. Unable to estimate RV systolic pressure due to insufficient tricuspid regurgitant envelope. Aortic Valve Moderate diffuse aortic valve thickening. Moderate focal aortic valve calcification. Moderate restriction of the aortic valve. Moderate aortic stenosis. Peak aortic valve gradient 49 mmHg. Mean aortic valve gradient 26 mmHg. Calculated aortic valve area (continuity equation) is 1.1 cm2. Pulmonic Valve Normal pulmonic valve. Great Vessels Normal aortic root. Normal arch. Normal inferior vena cava. Inferior vena cava collapse with sniff. Pericardium/Pleural No pericardial effusion. Medication 22 gauge I.V. with prn adaptor inserted into right arm. Diluted definity 3ml given slow IV push to enhance endocardial definition. MMode/2D Measurements & Calculations LVIDd: 4.6 cm IVSd: 1.5 cm LVOT diam: 2.2 cm LVIDs: 2.9 cm LVPWd: 1.3 cm RVDd: 3.6 cm FS: 36.8 % LVOT area: 3.8 cm2 ACS: 1.1 cm LAV(MOD-bp): 73.3 ml LA A4 area: 23.8 cm2 LAV(MOD-bp) Indexed: 30.0 ml/m2 LAV(MOD-sp2): 71.4 ml LAV(MOD-sp4): 73.1 ml RA A4 area: 19.4 cm2 Time Measurements MV dec time: 0.19 sec Doppler Measurements & Calculations MV E max matt: 89.8 cm/sec Lat Peak E' Matt: 8.9 cm/sec Med Peak E' Matt: 7.0 cm/sec MV A max matt: 100.4 cm/sec E/E' lat: 10.1 E/E' med: 12.8 MV E/A: 0.89 MV V2 max: 110.7 cm/sec MV P1/2t max matt: 103.5 cm/sec Ao V2 max: 345.4 cm/sec MV max P.9 mmHg MV P1/2t: 56.6 msec Ao max P.7 mmHg MV V2 mean: 70.6 cm/sec MV dec slope: 535.4 cm/sec2 Ao V2 mean: 235.8 cm/sec MV mean P.4 mmHg Ao mean P.4 mmHg MV V2 VTI: 20.8 cm MVA(P1/2t): 3.9 cm2 Ao V2 VTI: 75.1 cm MVA(VTI): 3.8 cm2 ADRIANA(I,D): 1.1 cm2 ADRIANA(V,D): 1.0 cm2 LV V1 max: 90.4 cm/sec SV(LVOT): 79.1 ml PA V2 max: 118.5 cm/sec LV V1 max P.3 mmHg LV V1 mean P.7 mmHg LV V1 mean: 61.8 cm/sec LV V1 VTI: 20.7 cm Interpretation Summary Moderate concentric left ventricular hypertrophy. The estimated ejection fraction is 65 %. Stage 1 diastolic dysfunction. The left atrium is mildly enlarged. Unable to estimate RV systolic pressure due to insufficient tricuspid regurgitant envelope. Moderate restriction of the aortic valve. Moderate aortic stenosis. Peak aortic valve gradient 49 mmHg. Mean aortic valve gradient 26 mmHg. Calculated aortic valve area (continuity equation) is 1.1 cm2. Compared to echo report dated 01/06/2019, LV function and aortic valvular gradient have remained the same, no appreciable changes noted. The study was technically difficult. Contrast injection was performed. Ordering Physician: Sohan Shukla Referring Physician: rainer conroy Performed By: Oswaldo Miller RCS
== END ==
PROVIDERS: PCP Family Medicine; Referring Provider Internal Medicine Cardiovascular Disease; Visit Provider Internal Medicine Cardiovascular Disease
DX: I35.0 Nonrheumatic aortic (valve) stenosis (principal)
CPT/HCPCS: 93306; Q9957; A4216; C8929

== ENCOUNTER → 2020-01-07 09:23 | Outpatient (CLI) | payer MEDICARE, SELFPAY ==
[2019-06-12 10:19] VITALS: BMI 38.3
--- NOTE | 2020-01-07 09:26 | STEWCON_ITS ---
Reason For Study: VALVE REPLACEMENT-EVAL Stress Results Protocol: Modified Carly Protocol With Definity Maximum Predicted HR: 148 bpm Target HR: 126 bpm % Maximum Predicted HR: 122 % DurationHeart Rate Stage (mm:ss) (bpm) BP Comment BASELINE 78 142/76 MOD CARLY STAGE 0 3:00 129 172/82 MOD CARLY STAGE 0/1 3:00 180 80/ SLIGHT SOB, NO CHEST PAIN MOD CARLY STAGE 1 3:00 142 172/82SOB NO CHEST PAIN RECOVERY 89 150/865 CC TOTAL DEFINITY FOR TEST Stress Duration: 9:00 mm:ss Maximum Stress HR: 180 bpm Baseline Echocardiogram Findings The estimated ejection fraction is 65 %. Stress Echo Wall motion Data Resting WM Intermediate WM Stress WM Resting Wall Motion Wall Motion Stress No regional wall motion No regional wall motion abnormalities noted. abnormalities noted. EKG Data The baseline ECG displays normal sinus rhythm. The maximum heart rate attained was 142 beats per minute. This was 95% of maximum predicted heart rate. The patient exercised into stage 2 of the Carly protocol. During stress, there were no ST or T wave changes noted to suggest ischemia. No clinical angina was noted. Interpretation Summary The estimated ejection fraction is 65 %. Normal, adequate, modified Carly treadmill echocardiogram. Negative for ischemia by EKG and echocardiographic criteria. No anginal symptoms noted. No arrhythmias noted. Appropriate blood pressure response to exercise. Below average exercise capacity for age. Final LVEF is 75%. Decrease sensitivity due to poor echo windows requiring Definity agent. No complications. The study was technically difficult. Contrast injection was performed. Ordering Physician: Sohan Shukla Referring Physician: Sohan Shukla Performed By: Reanna Delatorre RDCS
== END ==
PROVIDERS: PCP Family Medicine; Referring Provider Internal Medicine Cardiovascular Disease; Visit Provider Internal Medicine Cardiovascular Disease
DX: Z01.810 Encounter for preprocedural cardiovascular examination (principal); I35.0 Nonrheumatic aortic (valve) stenosis; E78.5 Hyperlipidemia, unspecified
CPT/HCPCS: 93017; 93350; Q9957; A4216; C8928

== ENCOUNTER → 2020-11-19 07:46 | Outpatient (CLI) | payer MEDICARE, SELFPAY ==
[2019-06-12 10:19] VITALS: BMI 38.3
--- NOTE | 2020-11-19 07:51 | VDLE_ITS ---
Reason For Study: CABG Pre op testing RIGHT LEFT Rt GSV previous EVLA. Lt GSV previous Venaseal. SSV prox, 0.21 x 0.20 cm. SSV prox, 0.24 x 0.25 cm. SSV mid, 0.14 x 0.14 cm. SSV mid, 0.20 x 0.21 cm. SSV distal, 0.12 x 0.13 cm. SSV distal, 0.22 x 0.22 cm. Procedure This is a venous duplex using B-mode, color flow and spectral Doppler. Exam performed in department. The study was technically limited. VL/Saphenous Vein Mapping, Bilat Interpretation Summary Findings suggest previous ablative treatment to bilateral great saphenous veins Bilateral small saphenous veins patent and compressible Right small saphenous vein noted to be generally diminutive This study was suggested to be technically limited Ordering Physician: MELA JANE Referring Physician: Antonio Rangel Performed By: Ani Moreland RVT
== END ==
PROVIDERS: PCP Family Medicine
DX: Z01.818 Encounter for other preprocedural examination (principal); I73.9 Peripheral vascular disease, unspecified; I25.10 Atherosclerotic heart disease of native coronary artery without angina pectoris; I35.0 Nonrheumatic aortic (valve) stenosis
CPT/HCPCS: 93970

== ENCOUNTER 2020-12-31 16:04 | Emergency (ER) | payer MEDICARE, SELFPAY ==
[2020-12-31 16:05] VITALS: BP 114/64; PULSE 80; RESP 16; TEMP 37.1; O2SAT 93; BMI 36.1
--- NOTE | 2020-12-31 16:38 | ED.VIS.FALL ---
HPI HPI - Fall History of Present Illness Chief Complaint: Fall Informant: patient and spouse/S.O. Narrative Narrative: Patient presents with anterior medial left knee pain after mechanical fall today. Patient has had some difficulty walking since his bypass and valve surgery in November of this year. He is also had bilateral lower extremity edema ever since surgery. He has been seeing his physicians managing this. He is on Eliquis. He is also on both Zaroxolyn and Lasix. He states he just kind of tripped and fell. He landed over mostly on his right shoulder. He does not have pain in his shoulder or chest. He never hit his head. He states the only thing that hurts is his left knee. Everything else feels fine. Motion or weightbearing makes it worse. Rest makes it better. [facility] Medical History (Updated 12/31/20 @ 22:[address] Soren Solares MD) Anal fissure Aortic stenosis Bilateral inguinal hernia without obstruction or gangrene BPH (benign prostatic hyperplasia) Cerebral aneurysm Chronic venous insufficiency Degeneration of intervertebral disc Eosinophilic fasciitis Essential hypertension GERD (gastroesophageal reflux disease) Hyperlipidemia Hyperpigmentation Lipodermatosclerosis Non-healing wound of lower extremity Obesity (BMI 30-39.9) Open wound Peripheral vascular disease of lower extremity with ulceration Rosacea Venous hypertension, chronic, with ulcer and inflammation Venous stasis ulcer Vertigo Home Medications finasteride 5 mg PO QHS 07/08/17 [History Last Taken 07/08/17] lorazepam 0.5 mg PO DAILY PRN PRN 07/08/17 [History Last Taken Unknown] xxfopqvj-[id number]-GQ-lycopen-lutein 1 tab PO DAILY 07/08/17 [History Last Taken 07/07/17] pantoprazole 40 mg PO QODAY 07/08/17 [History Last Taken 07/08/17] tamsulosin 0.4 mg PO DAILY 07/08/17 [History Last Taken 07/08/17] venlafaxine 37.5 mg PO DAILY cap 07/14/17 [Rx Last Taken Unknown] biotin 10,000 mcg capsule mcg PO cap 11/27/18 [History Last Taken Unknown] calcium carbonate-vitamin D3 600 mg calcium-200 unit capsule 1 cap PO BID cap 11/27/18 [History Last Taken Unknown] docusate sodium 100 mg capsule 100 mg PO DAILY 11/27/18 [History Last Taken Unknown] ibuprofen 800 mg tablet 800 mg PO Q6H PRN 11/27/18 [History Last Taken Unknown] magnesium 250 mg tablet 500 mg PO DAILY tab 11/27/18 [History Last Taken Unknown] polyethylene glycol 3350 17 gram/dose oral powder 17 g PO DAILY 11/27/18 [History Last Taken Unknown] vitamin B complex 1 tab PO DAILY 11/27/18 [History Last Taken Unknown] zinc 50 mg tablet 50 mg PO DAILY 11/27/18 [History Last Taken Unknown] aspirin 81 mg tablet,delayed release 81 mg PO DAILY 06/12/19 [History Last Taken Unknown] apixaban [Eliquis] mg 12/31/20 [History Last Taken Unknown] clindamycin HCl 150 mg PO Q6H 12/31/20 [History Last Taken Unknown] furosemide [Lasix] 20 mg PO DAILY 12/31/20 [History Last Taken Unknown] metolazone 5 mg PO DAILY 12/31/20 [History Last Taken Unknown] metoprolol tartrate 50 mg PO Q12H 12/31/20 [History Last Taken Unknown] potassium chloride 20 meq PO DAILY 12/31/20 [History Last Taken Unknown] Allergy/AdvReac Type Severity Reaction Status Date / Time amoxicillin [From Augmentin] AdvReac Abd Verified 12/31/20 16:08 cramps/diarrhea clavulanic acid AdvReac Abd Verified 12/31/20 16:08 [From Augmentin] cramps/diarrhea ibuprofen [From Motrin] AdvReac GI bleed Verified 12/31/20 16:08 Family History Mother Cancer uterine Father Cancer skin Diabetes CAD (coronary artery disease) CABG Surgical History History of basal cell carcinoma (BCC) excision History of colectomy History of excision of pilonidal cyst History of rectal sphincterotomy Social History Smoking Status: Unknown if ever smoked how long ago did patient quit smokin years ago alcohol intake: current alcohol intake frequency: 0-2 drinks per day Alcohol type: beer substance use type: does not use ROS ROS ED Constitutional Constitutional ED: Denies chills or fever(s) Eyes Eyes: Denies blurry vision or change in vision ENT ENT ED: Denies rhinorrhea Cardiovascular Cardiovascular: Reports other Details: No pain in sternal incision. No new clicking or sense of motion. ; Denies chest pain, palpitations or racing heartbeat Respiratory/Chest Respiratory/Chest: Denies cough or dyspnea Gastrointestinal Gastrointestinal: Denies abdominal pain or nausea Musculoskeletal Musculoskeletal: Reports other Details: See history of present illness. ; Denies back pain or neck pain Integumentary Denies rash Neurologic Neurologic: Denies headache(s), paresthesias or weakness Endocrine Endocrinology: Denies polydipsia or polyuria Hematologic/Lymphatic Hematologic/Lymphatic: Reports easy bleeding and easy bruising Allergic/Immunologic Allergic/Immunologic ED: Denies urticaria EXAM Physical Exam Const Vital Signs: 12/31/20 16:05 12/31/20 20:42 Temperature 98.8 F Temperature Source Oral Pulse Rate 80 76 Respiratory Rate 16 Blood Pressure 114/64 124/56 H Blood Pressure Mean 80 78 Pulse Ox 93 Oxygen Delivery Method Room Air Positive well developed General Appearance ED: well developed and NAD HEENT atraumatic; Negative for trauma Eyes EOMs intact bilaterally Neck supple General: Negative for tenderness Chest Wall palpation of chest normal Resp normal respiratory effort and clear to auscultation bilaterally Cardio regular rate and regular rhythm GI non-tender and non-distended Palpation: soft Extremity Extremity Narrative: Both extremities show a fair amount of edema. This edema does go all the way up and involve testicles. This is evidently not acute. He has some erythema of the lower extremities consistent with his history of recent cellulitis for which he is being treated. The erythema is actually within and appears to have retracted back from demarcation lines drawn with a pen. He has some tenderness in the anterior medial left knee. There is no focal skin change. I see no contusion at this point. There is no deformity. Neuro oriented x3 Sensorium / Orientation: alert Psych mental status grossly normal Skin Lesions: no lesions Rashes: no rashes MDM MDM MDM Narrative Medical decision making narrative: Patient's x-ray showed effusion but no fracture. My suspicion is this is likely a hemarthrosis as he is on Eliquis. He really wants to go home. However, we got him up and walked and he was very unstable. With 2 or more people we could get him up and he can move just slightly with his walker. However he cannot get up by himself. We tried to see if his could assist him and it was not safe. They do not feel comfortable going home. I think he is at high risk of fall with injuring both himself and his if he goes home. Since he is just a month out of surgery I think this could have a very poor outcome. I did do some baseline labs. He has anemia but his white count is normal. Electrolytes show no marked abnormality. I did discuss case with our hospitalist. We both agree that with this patient's complex recent history, bypass surgery, valve surgery, peripheral edema, on antibiotics for cellulitis he is likely best served back at the hospital where he had all his care. Patient does feel as though his cellulitis is improving somewhat. But his doctor had talked about putting him in the hospital for IV antibiotics if it does not continue to improve. I discussed the case with [facility]. Dr. Pinto will accept the patient in transfer. I notified the family. Lab Data Attestation: I reviewed the patient's lab results. Labs: Laboratory Results - last 24 hr 12/31/20 12/31/20 20:25 20:25 WBC 8.0 RBC 3.26 L Hgb 9.4 L Hct 29.9 L MCV 91.7 MCH 28.8 MCHC 31.4 L RDW Std Deviation 50.4 H RDW Coeff of Devorah 15.2 H Plt Count 190 MPV 9.8 Immature Gran % (Auto) 0.400 Neut % (Auto) 82.0 H Lymph % (Auto) 6.3 L [place] % (Auto) 6.8 Eos % (Auto) 4.0 Baso % (Auto) 0.5 Absolute Neuts (auto) 6.6 Absolute Lymphs (auto) 0.50 L Nucleated RBC % 0 Differential Comment SCANNED Sodium 133 L Potassium 3.4 L Chloride 94 L Carbon Dioxide 32.0 Anion Gap 7 BUN 18 Creatinine 0.81 Estim Creat Clear Calc 89.15 Est GFR (MDRD) Af Amer 120 Est GFR (MDRD) Non-Af 99 BUN/Creatinine Ratio 22.2 H Glucose 104 Calcium 7.9 L Total Bilirubin 0.50 AST 22 ALT 36 Alkaline Phosphatase 76 Total Protein 6.4 Albumin 3.0 L Globulin 3.4 Albumin/Globulin Ratio 0.9 Radiography Diagnostic Testing: Radiology Impression Knee X-Ray 12/31/20 16:56 IMPRESSION: 1. Moderate soft tissue swelling 2. Large knee joint effusion. Electronically Signed: Jeremy Vuong MD at 18:02 EDT , Service support , Discharge Plan Triage Chief Complaint: Fall ED Provider: Soren Solares Dx/Rx/DC Orders Clinical Impression: Fall at home, Hemarthrosis of knee, left, Bilateral edema of lower extremity, Bilateral lower leg cellulitis, Inability to ambulate due to multiple joints Prescriptions: No Action zinc 50 mg tablet 50 mg PO DAILY RF: 0 biotin [Etienne Biotin] 10,000 mcg capsule PO RF: 0 docusate sodium 100 mg capsule 100 mg PO DAILY RF: 0 polyethylene glycol 3350 17 gram/dose powder 17 g PO DAILY RF: 0 magnesium 250 mg tablet 500 mg PO DAILY RF: 0 vitamin B complex Tablet 1 tab PO DAILY RF: 0 calcium carbonate-vitamin D3 600 mg calcium-200 unit capsule 600 mg calcium- 200 unit capsule 1 cap PO BID RF: 0 ibuprofen 800 mg tablet 800 mg PO Q6H PRN (Reason: pain) RF: 0 aspirin [Adult Aspirin Regimen] 81 mg tablet,delayed release (DR/EC) 81 mg PO DAILY RF: 0 tamsulosin 0.4 MG capsule 0.4 mg PO DAILY RF: 0 finasteride 5 MG tablet 5 mg PO QHS RF: 0 pantoprazole 40 MG tablet 40 mg PO QODAY RF: 0 pggwxinf-wgc-AC-lycopen-lutein 1 EACH tablet 1 tab PO DAILY RF: 0 lorazepam 0.5 MG tablet 0.5 mg PO DAILY PRN PRN (Reason: Anxiety) RF: 0 venlafaxine 37.5 MG capsule 37.5 mg PO DAILY RF: 0 metolazone 2.5 mg Tablet 5 mg PO DAILY RF: 0 clindamycin HCl 150 mg Capsule 150 mg PO Q6H RF: 0 metoprolol tartrate 50 mg Tablet 50 mg PO Q12H RF: 0 furosemide [Lasix] 20 mg Tablet 20 mg PO DAILY RF: 0 Eliquis 5 mg Tablet RF: 0 potassium chloride 20 mEq Tablet Extended Release 20 meq PO DAILY RF: 0 Primary Care Provider: Antonio Rangel Referrals: Antonio Rangel MD [Primary Care Provider] - Disposition Disposition: Acute Care Hospital Discharge Location: [facility]
--- NOTE | 2020-12-31 16:56 | RAD_ITS ---
STUDY: X-RAY - LEFT KNEE REASON FOR EXAM: Male, 75 years old. PAIN AND SWELLING S/P FALL ALSO HAS POST OP CELLULITIS TO LOWER EXTREMITIES TECHNIQUE: 4 view(s) of the knee. COMPARISON: None. FINDINGS: Normal visualized distal femur. Normal visualized proximal tibia and fibula. Normal proximal tibiofibular articulation. There is no demonstrated fracture. Normal medial femorotibial compartment. Normal lateral femorotibial compartment. There is mild degenerative arthrosis of the patellofemoral articulation. There is a large volume joint effusion. Moderate soft tissue swelling is present. RAD/Knee 4 or More Views IMPRESSION: 1. Moderate soft tissue swelling 2. Large knee joint effusion. Electronically Signed: Jeremy Vuong MD at 18:02 EDT , Service support ,
[2020-12-31] MEDS: Acetaminophen 325 MG Tablet 650 MG PO (18:49)
[2020-12-31 20:29] LABS: Absolute Neutrophil Count 6.6 X10^3/uL (2.0-7.7); Basophil# 0.04 X10^3/uL; Basophil% 0.5 % (0-1); Eosinophil# 0.32 X10^3/uL; Hematocrit 29.9 % (40-54); Hemoglobin 9.4 g/dL (13.0-16.5); Lymphocyte % 6.3 % (19-41); Mean Corp Hgb Conc 31.4 g/dL (32-36); Mean Corpuscular Hgb 28.8 pg (27.0-32.0); Mean Corpuscular Volume 91.7 fL (80-94); Mean Platelet Vol. 9.8 fl (6.2-12.0); Monocyte# 0.54 X10^3/uL; Monocyte% 6.8 % (0-10); NRBC Flagged by Analyzer 0 % (0-5); Neutrophil # 6.55 X10^3/uL (2.7-7.7); POSITIVE DIFFERENTIAL YES; Platelet Count 190 K/mm3 (150-450); RBC Distribution Width CV 15.2 % (11.6-14.6); RBC Distribution Width SD 50.4 fl (35.1-43.9); Red Blood Count 3.26 M/mm3 (4.6-6.2)
[2020-12-31 20:42] VITALS: BP 124/56; PULSE 76
[2020-12-31 20:48] LABS: Differential Indicated SCAN CRITERIA MET
[2020-12-31 20:52] LABS: ALB/GLOB Ratio 0.9 RATIO (0.9-2.4); AST(SGOT) 22 U/L (15-37); Alanine Aminotransfer ALT/SGPT 36 U/L (16-61); Alkaline Phosphatase 76 U/L (45-117); Anion Gap 7 (5-15); BUN 18 mg/dL (7-18); BUN/Creat Ratio 22.2 RATIO (10-20); Calcium,Total 7.9 mg/dL (8.5-10.1); Chloride 94 mmol/L (98-107); Creatinine, Serum 0.81 mg/dL (0.70-1.30); EST Glomerular Filtration Rate 99 mL/min (>60); Est Glom Filt Rate - Afr Amer 120 mL/min (>60); Estimated Creatinine Clearance 89.15 ml/min; Globulin 3.4 g/dL (2.2-4.2); Glucose 104 mg/dL (74-106); Potassium 3.4 mmol/L (3.5-5.1); Protein, Total 6.4 g/dL (6.4-8.2); Sodium Level 133 mmol/L (136-145)
[2020-12-31 20:54] LABS: Differential Comment SCANNED
[2020-12-31 23:12] VITALS: BP 135/51
--- NOTE | 2020-12-31 23:33 | ED.RN ---
dr. carney aware patient needs evening meds and wants to take his home medications. dr. carney okay with that.
[2021-01-01 01:04] VITALS: BP 121/58; PULSE 76; RESP 16; O2SAT 98
[2021-01-01] MEDS: Acetaminophen 325 MG Tablet 650 MG PO (01:05)
== END 2021-01-01 02:30 | disposition short-term general hospital (02) ==
PROVIDERS: Emergency Provider Emergency Medicine; PCP Family Medicine
DX: M25.062 Hemarthrosis, left knee (principal); R60.0 Localized edema; L03.116 Cellulitis of left lower limb; L03.115 Cellulitis of right lower limb; N40.0 Benign prostatic hyperplasia without lower urinary tract symptoms; I10 Essential (primary) hypertension; K21.9 Gastro-esophageal reflux disease without esophagitis; W01.0XXA Fall on same level from slipping, tripping and stumbling without subsequent striking against object, initial encounter; Z79.01 Long term (current) use of anticoagulants; Z79.899 Other long term (current) drug therapy
CPT/HCPCS: 73564; 80053; 85025; 99285; A4216

== ENCOUNTER 2021-01-08 14:22 | Inpatient (IN) | payer MEDICARE, SELFPAY ==
[2021-01-08 14:46] VITALS: BP 120/55; PULSE 77; RESP 18; TEMP 35.9; O2SAT 91; BMI 34.4
--- NOTE | 2021-01-08 16:03 | PCM.HP.STD ---
[facility] - General General Date of Admission: 01/08/21 [facility] Narrative 12/31/2020 JAHAIRA MAYORGA, is a 75 Male who presents to [facility] with fall. Fall, left knee pain, landed on right shoulder. November, CABG, Aortic valve replacement, suffered bilateral extremity edema, difficulty walking since then. X-ray left knee shows effusion, suspect hemarthrosis due to Eliquis. Walk unstable, unable to stand by himself. Hemoglobin 9.4, on clindamycin for bilateral lower extremity cellulitis. Transfer to [facility] where he had CABG, Aortic valve replacement. 01/01/2021 Admit to [facility]. Lasix IV twice daily, compression stockings, low salt diet, daily weights for bilateral lower extremity edema. Percocet, PT/OT, Orthopedics consult for left knee pain with effusion. Continue Clindamycin for bilateral lower extremity cellulitis. 01/01/2021 Orthopedics recommended weight bearing as tolerated, compression to left knee for left knee pain with effusion. 01/03/2021 Echo Left ventricular systolic function normal. EF 63%. Lasix 40mg IV twice daily to Po twice daily. Continue Aldactone 25mg for bilateral lower extremity edema. Medical records limited. 01/08/2021 Admit to TCU with debility, here for rehabilitation, strengthening, prior to discharge home with . [facility] Medical History (Updated 01/08/21 @ 16:[address] Melvin Giles MD) Anal fissure Aortic stenosis Bilateral inguinal hernia without obstruction or gangrene BPH (benign prostatic hyperplasia) Cerebral aneurysm Chronic venous insufficiency Degeneration of intervertebral disc Eosinophilic fasciitis Essential hypertension GERD (gastroesophageal reflux disease) Hyperlipidemia Hyperpigmentation Lipodermatosclerosis Non-healing wound of lower extremity Obesity (BMI 30-39.9) Open wound Peripheral vascular disease of lower extremity with ulceration Rosacea Venous hypertension, chronic, with ulcer and inflammation Venous stasis ulcer Vertigo Home Medications finasteride 5 mg PO QHS 07/08/17 [History Last Taken 07/08/17] lorazepam 0.5 mg PO TID PRN PRN 07/08/17 [History Last Taken Unknown] maybnnhq-ksr-RL-lycopen-lutein 1 tab PO DAILY 07/08/17 [History Last Taken 07/07/17] pantoprazole 40 mg PO QODAY 07/08/17 [History Last Taken 01/08/21] tamsulosin 0.4 mg PO DAILY 07/08/17 [History Last Taken 07/08/17] biotin 10,000 mcg capsule 10,000 mcg PO DAILY cap 11/27/18 [History Last Taken Unknown] calcium carbonate-vitamin D3 600 mg calcium-200 unit capsule 1 cap PO BID cap 11/27/18 [History Last Taken Unknown] docusate sodium 100 mg capsule 100 mg PO DAILY 11/27/18 [History Last Taken Unknown] ibuprofen 800 mg tablet 800 mg PO Q6H PRN 11/27/18 [History Last Taken Unknown] magnesium 250 mg tablet 400 mg PO DAILY tab 11/27/18 [History Last Taken Unknown] polyethylene glycol 3350 17 gram/dose oral powder 17 g PO DAILY 11/27/18 [History Last Taken Unknown] vitamin B complex 1 tab PO DAILY 11/27/18 [History Last Taken Unknown] zinc 50 mg tablet 50 mg PO DAILY 11/27/18 [History Last Taken Unknown] aspirin 81 mg tablet,delayed release 81 mg PO DAILY 06/12/19 [History Last Taken Unknown] apixaban [Eliquis] 5 mg PO BID 12/31/20 [History Last Taken Unknown] clindamycin HCl 150 mg PO Q6H 12/31/20 [History Last Taken Unknown] furosemide [Lasix] 40 mg PO BID 12/31/20 [History Last Taken Unknown] metolazone 5 mg PO DAILY 12/31/20 [History Last Taken Unknown] metoprolol tartrate 50 mg PO Q12H 12/31/20 [History Last Taken Unknown] potassium chloride 20 meq PO DAILY 12/31/20 [History Last Taken Unknown] acetaminophen 500 mg PO Q6H PRN 01/08/21 [History Last Taken Unknown] amlodipine 5 mg PO DAILY 01/08/21 [History Last Taken Unknown] cholecalciferol (vitamin D3) [Vitamin D3] 125 mcg PO DAILY 01/08/21 [History Last Taken Unknown] docusate sodium [Colace] 50 mg PO DAILY 01/08/21 [History Last Taken Unknown] melatonin 3 mg PO QHS 01/08/21 [History Last Taken Unknown] mv,Ca,ods-itna-AG-lycopene [Centrum Men] 1 tab PO 01/08/21 [History Last Taken Unknown] uz-ovf-BE-Ye-Nj-brwbbhf-lutein [Centrum] 1 tab PO DAILY 01/08/21 [History Last Taken Unknown] rosuvastatin 20 mg PO DAILY 01/08/21 [History Last Taken Unknown] sennosides-docusate sodium [Senna-S] 1 tab PO BID 01/08/21 [History Last Taken Unknown] simethicone 80 mg PO Q4H PRN PRN 01/08/21 [History Last Taken Unknown] venlafaxine 37.5 mg PO DAILY 01/08/21 [History Last Taken Unknown] Allergy/AdvReac Type Severity Reaction Status Date / Time amoxicillin [From Augmentin] AdvReac Abd Verified 12/31/20 16:08 cramps/diarrhea clavulanic acid AdvReac Abd Verified 12/31/20 16:08 [From Augmentin] cramps/diarrhea ibuprofen [From Motrin] AdvReac GI bleed Verified 12/31/20 16:08 Family History Mother Cancer uterine Father Cancer skin Diabetes CAD (coronary artery disease) CABG Surgical History (Updated 01/08/21 @ 16:[address] Melvin Giles MD) History of aortic valve replacement History of basal cell carcinoma (BCC) excision History of colectomy History of excision of pilonidal cyst History of rectal sphincterotomy S/P CABG x 3 Social History (Updated 01/08/21 @ 16:[address] Melvin Giles MD) household members: spouse Smoking Status: Former smoker how long ago did patient quit smokin years ago alcohol intake: current alcohol intake frequency: 0-2 drinks per day Alcohol type: beer substance use type: does not use ROS Constitutional Constitutional: Denies chills, fever(s) or weight gain ENT HEENT: Denies headache(s), nasal congestion or nasal discharge Cardiovascular Cardiovascular: Denies chest pain or palpitations Respiratory/Chest Respiratory/Chest: Denies cough, excessive phlegm production or shortness of breath with exertion Gastrointestinal Gastrointestinal: Denies abdominal pain, nausea or vomiting Genitourinary Genitourinary: Denies dysuria Musculoskeletal Musculoskeletal: Denies joint pain or joint swelling Integumentary Integumentary: Denies rash or wounds Neurologic Neurologic: Denies focal weakness, numbness or tingling Psychiatric Psychiatric: Reports auditory hallucinations; Denies anxiety, depression, homicidal ideation or suicidal ideation Vital Signs Vital Signs Vital Signs: 01/08/21 14:46 Temperature 96.7 F L Temperature Source Temporal Pulse Rate 77 Pulse Rhythm Regular Pulse Strength Normal (2+) Respiratory Rate 18 Respiratory Effort Normal Non-Labored Respiratory Depth Normal Respiratory Pattern Normal Blood Pressure 120/55 L Blood Pressure Mean 76 Blood Pressure Source Monitor Blood Pressure Position Sitting Blood Pressure Location Right Arm Pulse Ox 91 Oxygen Delivery Method Room Air Physical Exam Const alert and oriented x3 General Appearance: cooperative HEENT normocephalic Eyes PERRL and EOMs intact bilaterally Neck supple, no JVD and no carotid bruits Resp normal respiratory effort, normal air movement and clear to auscultation bilaterally Cardio regular rate and regular rhythm GI normal to inspection, nondistended, normoactive bowel sounds, non-tender and non-distended Extremity normal capillary refill General Extremity: Negative for edema Skin no rashes or lesions noted General Skin Exam: no breakdown Psych affect normal Appearance: appropriate Results Lab / Micro Data Result Diagrams: 01/09/21 06:44 01/09/21 06:44 Assessment & Plan Assessment/Plan (1) Debility: (2) Fall at home: (3) Bilateral cellulitis of lower leg: (4) Left knee pain: (5) Effusion, left knee: (6) Lymphedema: (7) Acute on chronic diastolic congestive heart failure: (8) Coronary artery disease: (9) Aortic stenosis: (10) Benign prostate hyperplasia: (11) Anxiety: (12) Gastroesophageal reflux disease: (13) Depression: (14) Hypomagnesemia: (15) Fecal impaction of colon: (16) Hypokalemia: (17) Venous stasis dermatitis: (18) Atrial fibrillation: PLAN: 75 year old male with below past medical history hospitalized for left knee pain with effusion, unable to walk, complicated by bilateral lower extremity cellulitis, acute on chronic diastolic congestive heart failure, admitted to TCU with debility, here for rehabilitation, strengthening, prior to discharge home with . Debility - PT/OT. Pain - Tylenol 1000mg Q6H, Oxycodone 5MG Q4H PRN pain (4-10). Bowel - Miralax 17gm daily, Senna/colace 2 tablets twice daily, Dulcolax 10mg daily prn. Adult immunization - Administer prevnar 13, pneumovax 23, fluzone, covid19 vaccine as appropriate. DVT prophylaxis - Not necessary, already on Eliquis. Hypertension - Metoprolol 50mg Q12H, Amlodipine 5mg daily. Atrial fibrillation - Metoprolol 50mg Q12H, Eliquis 5mg twice daily. Coronary artery disease - Metoprolol 50mg Q12H, Eliquis 5mg twice daily. Hyperlipidemia - Atorvastatin 40mg QHS. Calcium deficiency - Calcium 1 tablet twice daily. Vitamin D deficiency - D3 5000iu daily. BPH - Finasteride 5mg QHS, Tamsulosin 0.4mg daily. Chronic diastolic congestive heart failure - Metoprolol 50mg Q12H, Lasix 40mg twice daily. Anxiety - Ativan 0.5mg tid PRN, stable chronic long-term use, GDR not recommended. Hypomagnesemia - Magnesium 128mg daily. Insomnia - Melatonin 3mg QHS. GERD - Pantoprazole 40mg every other day. Gas - Simethicone 80mg Q4H PRN. Depression - Venlafaxine XR 37.5mg daily, stable chronic long-term use, GDR not recommended. Leg cramp - Vitamin B complex daily. Zinc deficiency - Zinic 50mg daily.
[2021-01-08] MEDS: APIXABAN 5 MG TABLET PO (17:59)
[2021-01-08 18:00] VITALS: PULSE 77
[2021-01-08] MEDS: Metoprolol Tartrate 50 MG Tablet PO (18:00)
[2021-01-08] MEDS: Furosemide 40 MG Tablet PO (18:00)
[2021-01-08] MEDS: Acetaminophen 500 MG Tablet 1000 MG PO ×2 (18:01→23:47)
[2021-01-08] MEDS: Senna/Docusate Sodium 1 Tablet 2 TABLET PO (18:01)
[2021-01-08] MEDS: MELATONIN 3 MG TABLET PO (21:55)
[2021-01-08] MEDS: Finasteride 5 MG Tablet PO (21:55)
[2021-01-09] MEDS: APIXABAN 5 MG TABLET PO (06:46)
[2021-01-09] MEDS: Polyethylene Glycol 3350 17 GM PACKET PO (06:46)
[2021-01-09 06:47] VITALS: BP 116/55; PULSE 73
[2021-01-09] MEDS: Tamsulosin HCl 0.4 MG Capsule PO (06:47)
[2021-01-09] MEDS: Atorvastatin Calcium 40 MG Tablet PO (06:47)
[2021-01-09] MEDS: amLODIPine 5 MG Tablet PO (06:47)
[2021-01-09] MEDS: Metoprolol Tartrate 50 MG Tablet PO ×2 (06:47→17:51)
[2021-01-09] MEDS: Senna/Docusate Sodium 1 Tablet 2 TABLET PO (06:47)
[2021-01-09] MEDS: Venlafaxine XR 37.5 MG Capsule PO (06:47)
[2021-01-09] MEDS: Furosemide 40 MG Tablet PO ×2 (06:47→17:48)
[2021-01-09] MEDS: Magnesium Chloride 64 MG Delay Rel.Tablet 128 MG PO (06:48)
[2021-01-09] MEDS: Cholecalciferol (VIT D3) 25 MCG TABLET (1,000 UNITS) 125 MCG PO (06:48)
[2021-01-09] MEDS: Acetaminophen 500 MG Tablet 1000 MG PO ×4 (06:53→23:06)
[2021-01-09 06:55] VITALS: BP 116/55; PULSE 73; RESP 16; TEMP 36.6; O2SAT 93
[2021-01-09 07:24] LABS: Absolute Lymphocyte Count 0.77 X10^3/uL (0.83-4.51); Absolute Neutrophil Count 3.6 X10^3/uL (2.0-7.7); Basophil# 0.06 X10^3/uL; Basophil% 1.1 % (0-1); Eosinophil# 0.35 X10^3/uL; Eosinophils% 6.3 % (0-5); Hemoglobin 8.7 g/dL (13.0-16.5); Lymphocyte # 0.77 X10^3/ul (0.83-4.51); Lymphocyte % 13.9 % (19-41); Mean Corpuscular Volume 90.1 fL (80-94); Mean Platelet Vol. 9.3 fl (6.2-12.0); Monocyte# 0.65 X10^3/uL; Monocyte% 11.8 % (0-10); NRBC Flagged by Analyzer 0 % (0-5); Neutrophil # 3.64 X10^3/uL (2.7-7.7); Neutrophil % 65.8 % (47-70); Platelet Count 292 K/mm3 (150-450); RBC Distribution Width CV 14.9 % (11.6-14.6); RBC Distribution Width SD 49.3 fl (35.1-43.9); Red Blood Count 3.22 M/mm3 (4.6-6.2); White Blood Count 5.5 K/mm3 (4.4-11.0)
[2021-01-09 07:45] LABS: Anion Gap 5 (5-15); BUN 21 mg/dL (7-18); BUN/Creat Ratio 27.9 RATIO (10-20); Calcium,Total 8.8 mg/dL (8.5-10.1); Chloride 95 mmol/L (98-107); Creatinine, Serum 0.75 mg/dL (0.70-1.30); EST Glomerular Filtration Rate 108 mL/min (>60); Est Glom Filt Rate - Afr Amer 130 mL/min (>60); Estimated Creatinine Clearance 72.21 ml/min; Glucose 102 mg/dL (74-106); Potassium 4.1 mmol/L (3.5-5.1); Sodium Level 131 mmol/L (136-145)
[2021-01-09] MEDS: Multivitamins,Ther W-Minerals Tablet 1 TABLET PO (08:21)
[2021-01-09] MEDS: Calcium Carb/Vitamin D 1 TABLET Tablet PO ×2 (08:21→17:44)
[2021-01-09] MEDS: Vitamin B Comp W-C Capsule 1 CAP PO (08:21)
[2021-01-09] MEDS: Tuberculin,Purif.prot.deriv. 50 TU/ML Vial 0.1 ML ID (10:53)
[2021-01-09 17:51] VITALS: BP 128/56; PULSE 84
--- NOTE | 2021-01-09 20:42 | NURSING ---
Dressing changed to L foot per orders.
[2021-01-09] MEDS: Finasteride 5 MG Tablet PO (21:36)
[2021-01-09] MEDS: MELATONIN 3 MG TABLET PO (21:36)
--- NOTE | 2021-01-10 02:08 | NURSING ---
Pt calls reporting numbness to bilateral feet. Has been performing ankle pumps which increases discomfort. In no acute distress. Has experienced this symptom in the past. Hospital socks in place. Dressing to left foot tight and right foot slightly loose. Dressing removed and pt verbalizes some relief. Pedal pulses +2 bilateral. Posterior tibial pulses +3 bilateral. Skin pink, warm, and dry w/ some hemosiderin stating to anterior aspects of LEs. Adaptic applied to dry patches and small pink open area to dorsal aspect of left foot, then applied hospital socks. BLE elevated on a folded blanket. Ice chips given. Call light w/ in reach. Will continue to monitor.
[2021-01-10 06:17] VITALS: BP 133/69; PULSE 75; RESP 16; TEMP 36.3; O2SAT 95
[2021-01-10] MEDS: Polyethylene Glycol 3350 17 GM PACKET PO (06:20)
[2021-01-10] MEDS: Acetaminophen 500 MG Tablet 1000 MG PO ×4 (06:21→23:47)
[2021-01-10] MEDS: Magnesium Chloride 64 MG Delay Rel.Tablet 128 MG PO (06:21)
[2021-01-10 06:22] VITALS: BP 133/69; PULSE 75
[2021-01-10] MEDS: amLODIPine 5 MG Tablet PO (06:22)
[2021-01-10] MEDS: Senna/Docusate Sodium 1 Tablet 2 TABLET PO (06:22)
[2021-01-10] MEDS: Metoprolol Tartrate 50 MG Tablet PO ×2 (06:22→17:10)
[2021-01-10] MEDS: Pantoprazole Sodium 40 MG Tablet PO (06:25)
[2021-01-10] MEDS: Cholecalciferol (VIT D3) 25 MCG TABLET (1,000 UNITS) 125 MCG PO (06:25)
--- NOTE | 2021-01-10 07:39 | NURSING ---
Pt requesting Lipitor, Flomax,and Effexor to be administered at hs. Communication sent to pharmacy.
[2021-01-10] MEDS: Iron Polysaccharide Complex 150 MG CAPSULE PO (09:02)
[2021-01-10] MEDS: Multivitamins,Ther W-Minerals Tablet 1 TABLET PO (09:02)
[2021-01-10] MEDS: Furosemide 40 MG Tablet PO ×2 (09:02→17:11)
[2021-01-10] MEDS: Calcium Carb/Vitamin D 1 TABLET Tablet PO ×2 (09:02→17:11)
[2021-01-10] MEDS: Vitamin B Comp W-C Capsule 1 CAP PO (09:03)
--- NOTE | 2021-01-10 09:52 | CASEMGMT ---
Social Work Met with pt for initial assessment. SW discussed code status with pt and assisted pt in completing MOLST form. PT wishes Full code with intubation. MOLST form communicated to physician and placed in pt chart. SW explained [employer] benefit with NRD 01/11 and continued stay is not guaranteed. Pt plans to return home with at time of discharge. Pt is currently active with [facility] for RN/PT. SW will follow. CHRISTIANO Lam
--- NOTE | 2021-01-10 15:37 | WOUNDNOTE ---
skin photo: bilateral lower legs
--- NOTE | 2021-01-10 15:38 | WOUNDNOTE ---
skin photo: right foot
--- NOTE | 2021-01-10 15:38 | WOUNDNOTE ---
wound photo: left foot
[2021-01-10 16:07] VITALS: BP 122/62; PULSE 87; RESP 18; TEMP 35.9; O2SAT 98
[2021-01-10 17:10] VITALS: BP 122/62; PULSE 87
[2021-01-10 19:49] VITALS: PULSE 72; RESP 16; O2SAT 93
[2021-01-10] MEDS: Tamsulosin HCl 0.4 MG Capsule PO (21:55)
[2021-01-10] MEDS: Atorvastatin Calcium 40 MG Tablet PO (21:55)
[2021-01-10] MEDS: MELATONIN 3 MG TABLET PO (21:55)
[2021-01-10] MEDS: Venlafaxine XR 37.5 MG Capsule PO (21:55)
[2021-01-10] MEDS: Finasteride 5 MG Tablet PO (21:55)
[2021-01-11] MEDS: Polyethylene Glycol 3350 17 GM PACKET PO (05:37)
[2021-01-11 05:38] VITALS: BP 138/61; PULSE 85
[2021-01-11] MEDS: amLODIPine 5 MG Tablet PO (05:38)
[2021-01-11] MEDS: Acetaminophen 500 MG Tablet 1000 MG PO ×3 (05:38→17:14)
[2021-01-11] MEDS: Metoprolol Tartrate 50 MG Tablet PO ×2 (05:38→17:13)
[2021-01-11] MEDS: Magnesium Chloride 64 MG Delay Rel.Tablet 128 MG PO (05:38)
[2021-01-11] MEDS: Cholecalciferol (VIT D3) 25 MCG TABLET (1,000 UNITS) 125 MCG PO (05:38)
[2021-01-11 05:47] LABS: Hematocrit 28.1 % (40-54); Hemoglobin 8.3 g/dL (13.0-16.5)
[2021-01-11] MEDS: Vitamin B Comp W-C Capsule 1 CAP PO (09:27)
[2021-01-11] MEDS: Furosemide 40 MG Tablet PO ×2 (09:27→17:13)
[2021-01-11] MEDS: Calcium Carb/Vitamin D 1 TABLET Tablet PO ×2 (09:27→17:13)
[2021-01-11] MEDS: Multivitamins,Ther W-Minerals Tablet 1 TABLET PO (09:27)
[2021-01-11] MEDS: Iron Polysaccharide Complex 150 MG CAPSULE PO (09:27)
[2021-01-11 10:50] VITALS: PULSE 77; RESP 18; O2SAT 94
--- NOTE | 2021-01-11 13:37 | PCM.PN.RX ---
Progress Note - Pharmacy Subjective: TCU Admission Objective: Allergies amoxicillin [From Augmentin] Adverse Reaction (Verified 12/31/20 16:08) Abd cramps/diarrhea clavulanic acid [From Augmentin] Adverse Reaction (Verified 12/31/20 16:08) Abd cramps/diarrhea ibuprofen [From Motrin] Adverse Reaction (Verified 12/31/20 16:08) GI bleed Current Medications Generic Name Dose Route Start Last Admin Trade Name Freq PRN Reason Stop Dose Admin Acetaminophen 1,000 mg 01/08/21 18:00 01/11/21 11:59 Acetaminophen 500 Mg Tablet PO 1,000 mg Q6 JAMIN Administration Amlodipine Besylate 5 mg 01/09/21 06:00 01/11/21 05:38 Amlodipine 5 Mg Tablet PO 5 mg DAILY JAMIN Administration Apixaban 5 mg 01/08/21 18:00 01/09/21 06:46 Apixaban 5 Mg Tablet PO 5 mg BID JAMIN Administration Atorvastatin Calcium 40 mg 01/10/21 22:00 01/10/21 21:55 Atorvastatin Calcium 40 Mg Tablet PO 40 mg QHS JAMIN Administration Bisacodyl 10 mg 01/08/21 16:26 Bisacodyl 5 Mg Tablet PO DAILY PRN PRN Constipation Calcium/Vitamin D 1 tablet 01/09/21 08:00 01/11/21 09:27 Calcium Carb/Vitamin D 1 Tablet Tablet PO 1 tablet BIDCM JAMIN Administration Cholecalciferol 125 mcg 01/09/21 06:00 01/11/21 05:38 Cholecalciferol (Vit D3) 25 Mcg Tablet (1,000 Units) PO 125 mcg DAILY JAMIN Administration Finasteride 5 mg 01/08/21 22:00 01/10/21 21:55 Finasteride 5 Mg Tablet PO 5 mg QHS JAMIN Administration Furosemide 40 mg 01/09/21 09:00 01/11/21 09:27 Furosemide 40 Mg Tablet PO 40 mg BID@0900,1800 JAMIN Administration Lorazepam 0.5 mg 01/08/21 15:14 Lorazepam 0.5 Mg Tablet PO TID PRN PRN ANXIETY Magnesium Chloride 128 mg 01/09/21 06:00 01/11/21 05:38 Magnesium Chloride 64 Mg Delay Rel.Tablet PO 128 mg DAILY JAMIN Administration Melatonin 3 mg 01/08/21 22:00 01/10/21 21:55 Melatonin 3 Mg Tablet PO 3 mg QHS JAMIN Administration Metoprolol Tartrate 50 mg 01/08/21 18:00 01/11/21 05:38 Metoprolol Tartrate 50 Mg Tablet PO 50 mg Q12 JAMIN Administration Multivitamins 1 capsule 01/09/21 08:00 01/11/21 09:27 Vitamin B Comp W-C Capsule PO 1 capsule BREAKFAST JAMIN Administration Multivitamins/Minerals 1 tablet 01/09/21 08:00 01/11/21 09:27 Multivitamins,Ther W-Minerals Tablet PO 1 tablet BREAKFAST JAMIN Administration Oxycodone HCl 5 mg 01/08/21 16:26 Oxycodone 5 Mg Tablet PO Q4H PRN PRN Pain Score 6-10 Pantoprazole Sodium 40 mg 01/10/21 10:00 01/10/21 06:25 Pantoprazole Sodium 40 Mg Tablet PO 40 mg QODAY [facility] Administration Polyethylene Glycol 17 gm 01/09/21 06:00 01/11/21 05:37 Polyethylene Glycol 3350 17 Gm Packet PO 17 gm DAILY [facility] Administration Polysaccharide Iron Complex 150 mg 01/10/21 08:00 01/11/21 09:27 Iron Polysaccharide Complex 150 Mg Capsule PO 150 mg DAILYCM [facility] Administration Senna/Docusate Sodium 2 tablet 01/10/21 17:37 Senna/Docusate Sodium 1 Tablet PO BID PRN PRN Constipation Simethicone 80 mg 01/08/21 15:14 Simethicone 80 Mg Tablet PO Q4H PRN PRN Abdominal Discomfort Tamsulosin HCl 0.4 mg 01/10/21 22:00 01/10/21 21:55 Tamsulosin Hcl 0.4 Mg Capsule PO 0.4 mg QHS [facility] Administration Tuberculin PPD 0.1 ml 01/16/21 10:00 Tuberculin,Purif.Prot.Deriv. 50 Tu/Ml Vial ID 01/16/21 10:01 X1 ONE Venlafaxine HCl 37.5 mg 01/10/21 22:00 01/10/21 21:55 Venlafaxine Xr 37.5 Mg Capsule PO 37.5 mg QHS [facility] Administration Zinc Sulfate 220 mg 01/09/21 06:00 01/11/21 05:38 Zinc Sulfate (50mg Elemental) 220 Mg Capsule PO 220 mg DAILY [facility] Administration Problem List (Last Reviewed 01/08/21 @ 16:[address] Melvin Giles MD) Atrial fibrillation (Acute) Venous stasis dermatitis (Acute) Hypokalemia (Acute) Fecal impaction of colon (Acute) Hypomagnesemia (Acute) Depression (Acute) Gastroesophageal reflux disease (Acute) Anxiety (Acute) Benign prostate hyperplasia (Acute) Aortic stenosis (Acute) Coronary artery disease (Acute) Acute on chronic diastolic congestive heart failure (Chronic) Lymphedema (Acute) Effusion, left knee (Acute) Left knee pain (Acute) Bilateral cellulitis of lower leg (Acute) Debility (Acute) Fall at home (Acute) Vital Signs Temp Pulse Resp BP Pulse Ox 96.7 F L 85 16 138/61 H 93 01/10/21 16:07 01/11/21 05:38 01/10/21 19:49 01/11/21 05:38 01/10/21 19:49 Oxygen Delivery Method Room Air Weight: 113.568 kg Body Mass Index (BMI) 34.4 Sodium 131 mmol/L (136-145) L 01/09/21 06:44 Potassium 4.1 mmol/L (3.5-5.1) 01/09/21 06:44 Chloride 95 mmol/L (98-107) L 01/09/21 06:44 Carbon Dioxide 31.0 mmol/L (21.0-32.0) 01/09/21 06:44 Anion Gap 5 (5-15) 01/09/21 06:44 BUN 21 mg/dL (7-18) H 01/09/21 06:44 Creatinine 0.75 mg/dL (0.70-1.30) 01/09/21 06:44 Est GFR (MDRD) Af Amer 130 mL/min (>60) 01/09/21 06:44 Est GFR (MDRD) Non-Af 108 mL/min (>60) 01/09/21 06:44 BUN/Creatinine Ratio 27.9 RATIO (10-20) H 01/09/21 06:44 Glucose 102 mg/dL (74-106) 01/09/21 06:44 Assessment/Plan: 1. Pain: acetaminophen 1000mg PO Q6 and oxycodone 5mg PO Q4H PRN pain 6-10/10. Please continue to monitor for increased pain and PRN usage. 2. Hypertension/atrial fibrillation/CHF/CAD: metoprolol tartrate 50mg PO BID, amlodipine 5mg PO daily, apixaban 5mg PO BID, and furosemide 40mg PO BID. Please continue to monitor HR (last 85), BP (last 138/61), S/S of bleeding, hemoglobin (last 8.3g/dL), swelling, potassium (last 4.1mmol/L) and renal function. *3. Hyperlipidemia: atorvastatin 40mg PO QHS. Please consider ordering a lipid panel. Last panel from 09/2019. Thanks. Please continue to monitor for muscle pain. 4. BPH: finasteride 5mg PO QHS and tamsulosin 0.4mg PO QHS. Please continue to monitor for hypotension and S/S of BPH. 5. Insomnia: melatonin 3mg PO QHS. Please continue to monitor for excessive drowsiness. 6. GERD: pantoprazole 40mg PO QODAY. Please continue to monitor for S/S of GERD and diarrhea. 7. Gas: simethicone 80mg PO Q4H PRN abdominal discomfort. Please continue to monitor for PRN usage. 8. Hypomagnesemia: magnesium chloride 128mg PO daily. Please continue to monitor magnesium (last 2.1mg/dL). *9. Leg cramp: vitamin B complex 1C PO breakfast. Please consider ordering a vitamin B level. I did not see one in the patient's chart. Thanks. *10. Vitamin D deficiency/calcium deficiency/zinc deficiency/overall nutrition: calcium/vitamin D 1T PO BIDCM, cholecalciferol 125mcg PO daily, zinc sulfate 50mg (elemental) PO daily and multivitamin with minerals 1T PO breakfast. Please continue to monitor calcium levels (last 8.8mg/dL). Pateint does not have a vitamin D level in the chart. Please consider ordering a vitamin D level. Thanks. 11. Iron deficiency (hemoglobin 8.3g/dL): Ferrex 150mg PO DAILYCM. Please continue to monitor hemoglobin, constipation and dark stools. Psychotropic Medications: 1. Depression: venlafaxine XR 37.5mg PO daily. Please see physician note regarding GDR. 2. Anxiety: lorazepam 0.5mg PO TID PRN anxiety. Please see physician note regarding GDR. Unnecessary Medications: None Bowel Regimen: Miralax 17gm PO daily, senna/docusate 2T PO BID PRN constipation and bisacodyl 10mg PO daily PRN constipation. Please continue to monitor for constipation and PRN usage. Date of Note:: 01/11/21
--- NOTE | 2021-01-11 13:37 | NURSING ---
Spoke with nurse Castillo in Dr. Philip Nicole's office who is the patients glove stitcher. Per Anna the patient is to be on a 2000ml fluid restriction.
--- NOTE | 2021-01-11 14:34 | MDS.RN ---
Resident and spouse, Aileen, notified of COVID status on the unit.
[2021-01-11 16:29] VITALS: BP 123/60; PULSE 85; RESP 18; TEMP 36.3; O2SAT 94
[2021-01-11 17:13] VITALS: BP 123/60; PULSE 85
[2021-01-11] MEDS: Tamsulosin HCl 0.4 MG Capsule PO (22:39)
[2021-01-11] MEDS: Atorvastatin Calcium 40 MG Tablet PO (22:39)
[2021-01-11] MEDS: Venlafaxine XR 37.5 MG Capsule PO (22:40)
[2021-01-11] MEDS: Finasteride 5 MG Tablet PO (22:40)
[2021-01-11] MEDS: MELATONIN 3 MG TABLET PO (22:40)
[2021-01-12 06:41] VITALS: BP 144/58; PULSE 92; RESP 16; TEMP 35.7; O2SAT 94
[2021-01-12] MEDS: Magnesium Chloride 64 MG Delay Rel.Tablet 128 MG PO (06:44)
[2021-01-12] MEDS: Cholecalciferol (VIT D3) 25 MCG TABLET (1,000 UNITS) 125 MCG PO (06:44)
[2021-01-12] MEDS: Pantoprazole Sodium 40 MG Tablet PO (06:45)
[2021-01-12 06:46] VITALS: BP 144/58; PULSE 92
[2021-01-12] MEDS: amLODIPine 5 MG Tablet PO (06:46)
[2021-01-12] MEDS: Metoprolol Tartrate 50 MG Tablet PO ×2 (06:46→18:21)
[2021-01-12] MEDS: Acetaminophen 500 MG Tablet 1000 MG PO ×4 (06:47→20:09)
[2021-01-12] MEDS: Polyethylene Glycol 3350 17 GM PACKET PO (06:49)
--- NOTE | 2021-01-12 07:57 | NURSING ---
Leida held this am d/t concerns w/ recent low Hgb. Pt also verbalizes concerns w/ taking Eliquis until Hbg level will be rechecked, which is scheduled for 01/13.
[2021-01-12] MEDS: Multivitamins,Ther W-Minerals Tablet 1 TABLET PO (08:37)
[2021-01-12] MEDS: Vitamin B Comp W-C Capsule 1 CAP PO (08:38)
[2021-01-12] MEDS: Iron Polysaccharide Complex 150 MG CAPSULE PO (08:38)
[2021-01-12] MEDS: Furosemide 40 MG Tablet PO ×2 (08:38→18:21)
[2021-01-12] MEDS: Calcium Carb/Vitamin D 1 TABLET Tablet PO ×2 (08:38→18:21)
--- NOTE | 2021-01-12 11:53 | CASEMGMT ---
Social Work Plan of care meeting held with pt present and pt on conference call. Pt is receiving PT/OT and making progress with therapy. [facility] and [facility] is not guaranteed. Pt lives at home with his and plans to return home upon discharge. is able to provide some assistance but pt does need to continue to progress prior to return home. Will continue with treatment plan on TCU at this time. CHRISTIANO Lam
--- NOTE | 2021-01-12 15:56 | NURSING ---
Called Dr. Adkins's office and spoke with city secretary let them know that pharmacy does not carry But[facility] Patches. Awaiting call back.
[2021-01-12 16:00] VITALS: BP 123/63; PULSE 86; RESP 16; TEMP 35.8; O2SAT 97
[2021-01-12 18:21] VITALS: BP 128/65; PULSE 97
[2021-01-12] MEDS: Tamsulosin HCl 0.4 MG Capsule PO ×2 (20:10→20:11)
[2021-01-12] MEDS: MELATONIN 3 MG TABLET PO (20:11)
[2021-01-12] MEDS: Atorvastatin Calcium 40 MG Tablet PO (20:11)
[2021-01-12] MEDS: Finasteride 5 MG Tablet PO (20:12)
[2021-01-12 22:17] VITALS: PULSE 89; RESP 14
[2021-01-12] MEDS: Venlafaxine XR 37.5 MG Capsule PO (22:33)
[2021-01-13] MEDS: Polyethylene Glycol 3350 17 GM PACKET PO (05:20)
[2021-01-13] MEDS: Cholecalciferol (VIT D3) 25 MCG TABLET (1,000 UNITS) 125 MCG PO (05:22)
[2021-01-13] MEDS: amLODIPine 5 MG Tablet PO (05:22)
[2021-01-13] MEDS: Pantoprazole Sodium 40 MG Tablet PO (05:22)
[2021-01-13] MEDS: Magnesium Chloride 64 MG Delay Rel.Tablet 128 MG PO (05:23)
[2021-01-13 05:24] VITALS: BP 103/51; PULSE 76
[2021-01-13] MEDS: Metoprolol Tartrate 50 MG Tablet PO ×2 (05:24→18:16)
[2021-01-13] MEDS: Senna/Docusate Sodium 1 Tablet 2 TABLET PO (05:30)
[2021-01-13 05:38] LABS: Hematocrit 28.7 % (40-54); Hemoglobin 8.4 g/dL (13.0-16.5)
[2021-01-13] MEDS: Acetaminophen 500 MG Tablet 1000 MG PO ×2 (06:58→21:49)
[2021-01-13] MEDS: Furosemide 40 MG Tablet PO ×2 (08:36→18:16)
[2021-01-13] MEDS: Iron Polysaccharide Complex 150 MG CAPSULE PO (08:36)
[2021-01-13] MEDS: Vitamin B Comp W-C Capsule 1 CAP PO (08:36)
[2021-01-13] MEDS: Multivitamins,Ther W-Minerals Tablet 1 TABLET PO (08:36)
[2021-01-13] MEDS: Calcium Carb/Vitamin D 1 TABLET Tablet PO ×2 (08:36→18:16)
[2021-01-13] MEDS: APIXABAN 5 MG TABLET PO ×2 (09:09→18:16)
[2021-01-13 15:23] VITALS: BP 124/67; PULSE 78; RESP 18; TEMP 36.5; O2SAT 96
[2021-01-13 18:16] VITALS: BP 132/56; PULSE 85
[2021-01-13] MEDS: Finasteride 5 MG Tablet PO (21:48)
[2021-01-13] MEDS: Venlafaxine XR 37.5 MG Capsule PO (21:48)
[2021-01-13] MEDS: Atorvastatin Calcium 40 MG Tablet PO (21:49)
[2021-01-13] MEDS: MELATONIN 3 MG TABLET PO (21:49)
[2021-01-14 06:30] VITALS: BP 120/64; PULSE 90
[2021-01-14] MEDS: Polyethylene Glycol 3350 17 GM PACKET PO (06:31)
[2021-01-14] MEDS: Mineral Oil/Petrolatum Cr 1.75oz Bottle 1 APPLIC TOPICAL (06:31)
[2021-01-14] MEDS: Magnesium Chloride 64 MG Delay Rel.Tablet 128 MG PO (06:31)
[2021-01-14] MEDS: Cholecalciferol (VIT D3) 25 MCG TABLET (1,000 UNITS) 125 MCG PO (06:31)
[2021-01-14 06:32] VITALS: BP 120/64; PULSE 90
[2021-01-14] MEDS: Metoprolol Tartrate 50 MG Tablet PO ×2 (06:32→16:40)
[2021-01-14] MEDS: Pantoprazole Sodium 40 MG Tablet PO (06:32)
[2021-01-14] MEDS: amLODIPine 5 MG Tablet PO (06:32)
[2021-01-14] MEDS: APIXABAN 5 MG TABLET PO ×2 (06:32→16:41)
[2021-01-14 08:29] VITALS: BP 119/56; PULSE 75; RESP 16; TEMP 36.6; O2SAT 93
[2021-01-14] MEDS: Furosemide 40 MG Tablet PO ×2 (08:33→16:41)
[2021-01-14] MEDS: Vitamin B Comp W-C Capsule 1 CAP PO (08:33)
[2021-01-14] MEDS: Iron Polysaccharide Complex 150 MG CAPSULE PO (08:33)
[2021-01-14] MEDS: Calcium Carb/Vitamin D 1 TABLET Tablet PO ×2 (08:33→16:41)
[2021-01-14] MEDS: Multivitamins,Ther W-Minerals Tablet 1 TABLET PO (08:33)
--- NOTE | 2021-01-14 10:00 | MDS.RN ---
Pain interview conducted for DAYANA 01/15/21
--- NOTE | 2021-01-14 12:18 | CASEMGMT ---
BIMS and PHQ9 interviews completed on this date for MDS Assessment. CHRISTIANO Lam
[2021-01-14 16:40] VITALS: PULSE 88
[2021-01-14] MEDS: Venlafaxine XR 37.5 MG Capsule PO (20:44)
[2021-01-14] MEDS: Atorvastatin Calcium 40 MG Tablet PO (20:49)
[2021-01-14] MEDS: Tamsulosin HCl 0.4 MG Capsule PO (20:50)
[2021-01-14] MEDS: MELATONIN 3 MG TABLET PO (20:50)
[2021-01-14] MEDS: Finasteride 5 MG Tablet PO (20:51)
[2021-01-15] MEDS: Polyethylene Glycol 3350 17 GM PACKET PO (06:05)
[2021-01-15] MEDS: Mineral Oil/Petrolatum Cr 1.75oz Bottle 1 APPLIC TOPICAL (06:05)
[2021-01-15 06:06] VITALS: BP 120/60; PULSE 90
[2021-01-15] MEDS: Magnesium Chloride 64 MG Delay Rel.Tablet 128 MG PO (06:06)
[2021-01-15] MEDS: Pantoprazole Sodium 40 MG Tablet PO (06:06)
[2021-01-15] MEDS: APIXABAN 5 MG TABLET PO ×2 (06:06→17:16)
[2021-01-15] MEDS: Cholecalciferol (VIT D3) 25 MCG TABLET (1,000 UNITS) 125 MCG PO (06:06)
[2021-01-15] MEDS: amLODIPine 5 MG Tablet PO (06:06)
[2021-01-15] MEDS: Metoprolol Tartrate 50 MG Tablet PO ×2 (06:06→17:16)
[2021-01-15] MEDS: Calcium Carb/Vitamin D 1 TABLET Tablet PO ×2 (07:58→17:16)
[2021-01-15] MEDS: Iron Polysaccharide Complex 150 MG CAPSULE PO (07:58)
[2021-01-15] MEDS: Multivitamins,Ther W-Minerals Tablet 1 TABLET PO (07:58)
[2021-01-15] MEDS: Vitamin B Comp W-C Capsule 1 CAP PO (07:58)
[2021-01-15] MEDS: Furosemide 40 MG Tablet PO ×2 (07:59→17:16)
[2021-01-15 10:00] VITALS: PULSE 74; RESP 16; O2SAT 97
[2021-01-15] MEDS: Acetaminophen 500 MG Tablet 1000 MG PO ×2 (13:26→17:16)
[2021-01-15 17:04] VITALS: BP 94/61; PULSE 84; RESP 15; TEMP 36.1; O2SAT 97
[2021-01-15 17:16] VITALS: PULSE 84
[2021-01-15 20:35] VITALS: BP 118/53; PULSE 75; RESP 18; O2SAT 95
--- NOTE | 2021-01-15 20:35 | NURSING ---
Called into pt bathroom by Ramona MINOR, states pt fell. Pt sitting on the floor in bathroom, alert and oriented x3, states he is so mad at myself, this is the last thing I need right now. Pt states he was done on the toilet, stood up to go back to bed and realized his shorts were still around his legs, so I went to kick them off with my foot and fell on my butt. States he bumped his head on the wall but states it wasn't hard, denies dizziness, head /neck pain, back of head assessed for injury, none noted. Neurochecks WNL, pt had lt knee brace on and states he thinks it stayed straight when he fell, states he did not hit his knee, only fell on his buttocks . SPANISH INSTRUCTOR Ramona agrees, states she was beside him but could not keep him from falling when he started. Pt assisted up on his feet with 5 assists without issues, assisted to sit in wheelchair, pt still denies lightheaded or dizziness. Vitals obtained, WNL. When sitting in wc, noted to have abrasion to lt posterior shoulder that was bleeding, pt thinks he hit it on the toilet paper sultana. Cleaned with NS and steri strips applied. Pt then assisted to bed with 2 assists, able to walk, states his knee does not hurt more than it was before. brace removed and assessed for bleeding or injury, none noted. [employer] and Dr. Giles notified, new order for post fall neuro checks. Will continue to monitor.
[2021-01-15] MEDS: Finasteride 5 MG Tablet PO (22:19)
[2021-01-15] MEDS: Venlafaxine XR 37.5 MG Capsule PO (22:19)
[2021-01-15] MEDS: Atorvastatin Calcium 40 MG Tablet PO (22:19)
[2021-01-15] MEDS: MELATONIN 3 MG TABLET PO (22:20)
[2021-01-15] MEDS: Tamsulosin HCl 0.4 MG Capsule PO (22:21)
[2021-01-16] MEDS: Magnesium Chloride 64 MG Delay Rel.Tablet 128 MG PO (04:44)
[2021-01-16] MEDS: amLODIPine 5 MG Tablet PO (04:45)
[2021-01-16 04:46] VITALS: BP 120/61; PULSE 87
[2021-01-16] MEDS: Cholecalciferol (VIT D3) 25 MCG TABLET (1,000 UNITS) 125 MCG PO (04:46)
[2021-01-16] MEDS: Pantoprazole Sodium 40 MG Tablet PO (04:46)
[2021-01-16] MEDS: Metoprolol Tartrate 50 MG Tablet PO ×2 (04:46→17:22)
[2021-01-16] MEDS: APIXABAN 5 MG TABLET PO ×2 (04:47→17:22)
[2021-01-16] MEDS: Polyethylene Glycol 3350 17 GM PACKET PO (04:47)
[2021-01-16] MEDS: Mineral Oil/Petrolatum Cr 1.75oz Bottle 1 APPLIC TOPICAL (04:56)
[2021-01-16 04:57] VITALS: BP 120/61; PULSE 87; RESP 15; TEMP 37.1; O2SAT 92
[2021-01-16] MEDS: Iron Polysaccharide Complex 150 MG CAPSULE PO (08:36)
[2021-01-16] MEDS: Multivitamins,Ther W-Minerals Tablet 1 TABLET PO (08:36)
[2021-01-16] MEDS: Vitamin B Comp W-C Capsule 1 CAP PO (08:37)
[2021-01-16] MEDS: Calcium Carb/Vitamin D 1 TABLET Tablet PO ×2 (08:37→17:22)
[2021-01-16 08:38] LABS: Absolute Neutrophil Count 5.1 X10^3/uL (2.0-7.7); Basophil# 0.04 X10^3/uL; Basophil% 0.6 % (0-1); Eosinophil# 0.22 X10^3/uL; Eosinophils% 3.4 % (0-5); Hemoglobin 8.6 g/dL (13.0-16.5); Lymphocyte % 9.4 % (19-41); Mean Corp Hgb Conc 29.7 g/dL (32-36); Mean Corpuscular Hgb 27.3 pg (27.0-32.0); Mean Corpuscular Volume 92.1 fL (80-94); Mean Platelet Vol. 9.6 fl (6.2-12.0); Monocyte# 0.45 X10^3/uL; NRBC Flagged by Analyzer 0 % (0-5); Neutrophil # 5.05 X10^3/uL (2.7-7.7); POSITIVE DIFFERENTIAL YES; Platelet Count 215 K/mm3 (150-450); RBC Distribution Width CV 15.9 % (11.6-14.6); RBC Distribution Width SD 52.9 fl (35.1-43.9); Red Blood Count 3.15 M/mm3 (4.6-6.2); White Blood Count 6.4 K/mm3 (4.4-11.0)
[2021-01-16] MEDS: Furosemide 40 MG Tablet PO ×2 (08:38→17:22)
[2021-01-16 08:43] LABS: Differential Indicated SCAN CRITERIA MET
[2021-01-16 08:52] LABS: Anion Gap 4 (5-15); BUN 24 mg/dL (7-18); BUN/Creat Ratio 34.5 RATIO (10-20); Calcium,Total 8.6 mg/dL (8.5-10.1); Chloride 103 mmol/L (98-107); EST Glomerular Filtration Rate 118 mL/min (>60); Est Glom Filt Rate - Afr Amer 143 mL/min (>60); Estimated Creatinine Clearance 72.21 ml/min; Glucose 93 mg/dL (74-106); Potassium 3.7 mmol/L (3.5-5.1); Sodium Level 138 mmol/L (136-145)
[2021-01-16 09:31] LABS: Hypochromasia 1+
[2021-01-16 10:00] VITALS: PULSE 83; RESP 16; O2SAT 96
[2021-01-16] MEDS: Tuberculin,Purif.prot.deriv. 50 TU/ML Vial 0.1 ML ID (11:06)
[2021-01-16] MEDS: Acetaminophen 500 MG Tablet 1000 MG PO ×2 (11:06→17:22)
[2021-01-16 14:54] VITALS: BP 117/58; PULSE 84; RESP 16; TEMP 36.1; O2SAT 97
[2021-01-16 17:22] VITALS: PULSE 84
[2021-01-16] MEDS: Tamsulosin HCl 0.4 MG Capsule PO (21:25)
[2021-01-16] MEDS: Atorvastatin Calcium 40 MG Tablet PO (21:25)
[2021-01-16] MEDS: MELATONIN 3 MG TABLET PO (21:25)
[2021-01-16] MEDS: Venlafaxine XR 37.5 MG Capsule PO (21:25)
[2021-01-16] MEDS: Finasteride 5 MG Tablet PO (21:25)
[2021-01-17 06:00] VITALS: BP 119/61; PULSE 83
[2021-01-17] MEDS: amLODIPine 5 MG Tablet PO (06:04)
[2021-01-17] MEDS: Pantoprazole Sodium 40 MG Tablet PO (06:04)
[2021-01-17] MEDS: Cholecalciferol (VIT D3) 25 MCG TABLET (1,000 UNITS) 125 MCG PO (06:04)
[2021-01-17] MEDS: Polyethylene Glycol 3350 17 GM PACKET PO (06:04)
[2021-01-17 06:05] VITALS: BP 119/61; PULSE 83
[2021-01-17] MEDS: Magnesium Chloride 64 MG Delay Rel.Tablet 128 MG PO (06:05)
[2021-01-17] MEDS: Metoprolol Tartrate 50 MG Tablet PO ×2 (06:05→17:25)
[2021-01-17] MEDS: Acetaminophen 500 MG Tablet 1000 MG PO (06:05)
[2021-01-17] MEDS: APIXABAN 5 MG TABLET PO ×2 (06:06→17:25)
[2021-01-17] MEDS: Mineral Oil/Petrolatum Cr 1.75oz Bottle 1 APPLIC TOPICAL (06:09)
[2021-01-17] MEDS: Iron Polysaccharide Complex 150 MG CAPSULE PO (08:32)
[2021-01-17] MEDS: Calcium Carb/Vitamin D 1 TABLET Tablet PO ×2 (08:32→17:25)
[2021-01-17] MEDS: Multivitamins,Ther W-Minerals Tablet 1 TABLET PO (08:32)
[2021-01-17] MEDS: Vitamin B Comp W-C Capsule 1 CAP PO (08:33)
[2021-01-17] MEDS: Furosemide 40 MG Tablet PO ×2 (08:33→17:25)
[2021-01-17 11:05] VITALS: RESP 16; O2SAT 99
[2021-01-17 15:00] VITALS: BP 132/70; PULSE 86; RESP 18; TEMP 36.2; O2SAT 91
[2021-01-17 17:25] VITALS: BP 128/67; PULSE 90
--- NOTE | 2021-01-17 21:22 | NURSING ---
Spoke w/ Dr. Giles via phone informing him pt would like to speak with him when he is on the unit.
[2021-01-17] MEDS: Finasteride 5 MG Tablet PO (21:40)
[2021-01-17] MEDS: MELATONIN 3 MG TABLET PO (21:40)
[2021-01-17] MEDS: Tamsulosin HCl 0.4 MG Capsule PO (21:40)
[2021-01-17] MEDS: Atorvastatin Calcium 40 MG Tablet PO (21:40)
[2021-01-17] MEDS: Venlafaxine XR 37.5 MG Capsule PO (21:40)
[2021-01-18 05:50] VITALS: BP 127/61; PULSE 86
[2021-01-18] MEDS: Polyethylene Glycol 3350 17 GM PACKET PO (05:51)
[2021-01-18 05:52] VITALS: BP 127/61; PULSE 86
[2021-01-18] MEDS: Metoprolol Tartrate 50 MG Tablet PO ×2 (05:52→17:59)
[2021-01-18] MEDS: amLODIPine 5 MG Tablet PO (05:53)
[2021-01-18] MEDS: Pantoprazole Sodium 40 MG Tablet PO (05:53)
[2021-01-18] MEDS: Cholecalciferol (VIT D3) 25 MCG TABLET (1,000 UNITS) 125 MCG PO (05:54)
[2021-01-18] MEDS: Acetaminophen 500 MG Tablet 1000 MG PO (05:55)
[2021-01-18] MEDS: APIXABAN 5 MG TABLET PO ×2 (05:56→17:59)
[2021-01-18] MEDS: Magnesium Chloride 64 MG Delay Rel.Tablet 128 MG PO (05:56)
[2021-01-18] MEDS: Mineral Oil/Petrolatum Cr 1.75oz Bottle 1 APPLIC TOPICAL (05:58)
[2021-01-18] MEDS: Iron Polysaccharide Complex 150 MG CAPSULE PO (08:43)
[2021-01-18] MEDS: Calcium Carb/Vitamin D 1 TABLET Tablet PO ×2 (08:43→17:59)
[2021-01-18] MEDS: Multivitamins,Ther W-Minerals Tablet 1 TABLET PO (08:43)
[2021-01-18] MEDS: Vitamin B Comp W-C Capsule 1 CAP PO (08:43)
[2021-01-18] MEDS: Furosemide 40 MG Tablet PO ×2 (08:46→17:59)
[2021-01-18 16:12] VITALS: BP 116/58; PULSE 81; RESP 16; TEMP 35.8; O2SAT 98
[2021-01-18 17:59] VITALS: PULSE 81
[2021-01-18] MEDS: Finasteride 5 MG Tablet PO (20:59)
[2021-01-18] MEDS: Venlafaxine XR 37.5 MG Capsule PO (20:59)
[2021-01-18] MEDS: Atorvastatin Calcium 40 MG Tablet PO (20:59)
[2021-01-18] MEDS: Tamsulosin HCl 0.4 MG Capsule PO (20:59)
[2021-01-18] MEDS: MELATONIN 3 MG TABLET PO (20:59)
[2021-01-18 22:26] VITALS: PULSE 92
[2021-01-19] MEDS: Polyethylene Glycol 3350 17 GM PACKET PO (06:36)
[2021-01-19] MEDS: Cholecalciferol (VIT D3) 25 MCG TABLET (1,000 UNITS) 125 MCG PO (06:36)
[2021-01-19] MEDS: Magnesium Chloride 64 MG Delay Rel.Tablet 128 MG PO (06:36)
[2021-01-19] MEDS: APIXABAN 5 MG TABLET PO ×2 (06:37→17:34)
[2021-01-19] MEDS: Pantoprazole Sodium 40 MG Tablet PO (06:38)
[2021-01-19] MEDS: amLODIPine 5 MG Tablet PO (06:38)
[2021-01-19 06:42] VITALS: BP 125/70; PULSE 82
[2021-01-19] MEDS: Metoprolol Tartrate 50 MG Tablet PO ×2 (06:42→17:33)
[2021-01-19] MEDS: Multivitamins,Ther W-Minerals Tablet 1 TABLET PO (07:58)
[2021-01-19] MEDS: Iron Polysaccharide Complex 150 MG CAPSULE PO (07:58)
[2021-01-19] MEDS: Vitamin B Comp W-C Capsule 1 CAP PO (07:58)
[2021-01-19] MEDS: Calcium Carb/Vitamin D 1 TABLET Tablet PO ×2 (07:58→17:34)
[2021-01-19] MEDS: Mineral Oil/Petrolatum Cr 1.75oz Bottle 1 APPLIC TOPICAL (07:59)
[2021-01-19] MEDS: Furosemide 40 MG Tablet PO ×2 (07:59→17:34)
[2021-01-19] MEDS: Senna/Docusate Sodium 1 Tablet 2 TABLET PO (08:01)
--- NOTE | 2021-01-19 08:48 | NURSING ---
Addendum entered by Naomi Hendricks 01/19/21 08:56: Physical therapy reports pt has limited ROM, performing ADLs has been difficult, pt has stairs going into his home and he is unable to complete stairs at this time, pt wears a knee brace with ambulation which helps but still exhibits gait disturbance. Original Note: Pt expresses concern for left knee stating the pain is not getting worse but it has failed to subside, swelling has also been consistent and does not seem to be improving either. Pt states he has only had an xray in ED and feels there may be more going on in the soft tissue that is preventing him from recovery. Pt also reports he has difficulty walking and does not seem to be improving.
[2021-01-19 16:42] VITALS: BP 132/72; PULSE 84; RESP 16; TEMP 36.6; O2SAT 96
[2021-01-19 17:33] VITALS: BP 124/57; PULSE 91
[2021-01-19] MEDS: Tamsulosin HCl 0.4 MG Capsule PO (21:32)
[2021-01-19] MEDS: Atorvastatin Calcium 40 MG Tablet PO (21:32)
[2021-01-19] MEDS: Venlafaxine XR 37.5 MG Capsule PO (21:33)
[2021-01-19] MEDS: Finasteride 5 MG Tablet PO (21:33)
[2021-01-19] MEDS: MELATONIN 3 MG TABLET PO (21:33)
[2021-01-20] MEDS: APIXABAN 5 MG TABLET PO ×2 (06:35→17:53)
[2021-01-20] MEDS: amLODIPine 5 MG Tablet PO (06:35)
[2021-01-20] MEDS: Pantoprazole Sodium 40 MG Tablet PO (06:35)
[2021-01-20] MEDS: Polyethylene Glycol 3350 17 GM PACKET PO (06:35)
[2021-01-20] MEDS: Cholecalciferol (VIT D3) 25 MCG TABLET (1,000 UNITS) 125 MCG PO (06:35)
[2021-01-20 06:36] VITALS: BP 111/58; PULSE 82
[2021-01-20] MEDS: Magnesium Chloride 64 MG Delay Rel.Tablet 128 MG PO (06:36)
[2021-01-20] MEDS: Metoprolol Tartrate 50 MG Tablet PO ×2 (06:36→17:54)
[2021-01-20] MEDS: Vitamin B Comp W-C Capsule 1 CAP PO (07:56)
[2021-01-20] MEDS: Calcium Carb/Vitamin D 1 TABLET Tablet PO ×2 (07:56→17:53)
[2021-01-20] MEDS: Multivitamins,Ther W-Minerals Tablet 1 TABLET PO (07:57)
[2021-01-20] MEDS: Iron Polysaccharide Complex 150 MG CAPSULE PO (07:57)
[2021-01-20] MEDS: Furosemide 40 MG Tablet PO ×2 (08:00→17:54)
[2021-01-20] MEDS: Mineral Oil/Petrolatum Cr 1.75oz Bottle 1 APPLIC TOPICAL (09:40)
--- NOTE | 2021-01-20 14:03 | MDS.RN ---
Information for the mds was obtained from review of the clinical record, interview of resident, staff, and direct observation of resident's care.
[2021-01-20 14:16] VITALS: BP 119/57; PULSE 77; RESP 17; TEMP 35.9; O2SAT 98
[2021-01-20 17:54] VITALS: BP 119/57; PULSE 77
--- NOTE | 2021-01-20 18:55 | NURSING ---
PT STATED TO THIS NURSE THAT HE IS VERY CONCERNED WITH HIS KNEE AND FEELS THERE IS SOME THING ELSE GOING ON WITH IT AND SCHEDULED 2 DOCTOR APPOINTMENTS FOR . EXPLAINED TO PT THAT WE ARE STILL WAITING ON THE PRECERT FOR AND MRI ON HIS KNEE AND WILL LET HIM KNOW WHEN WE HEAR SOME THING. PT STATED OK AND THANK YOU. RN AWARE
[2021-01-20] MEDS: Tamsulosin HCl 0.4 MG Capsule PO (20:51)
[2021-01-20] MEDS: Atorvastatin Calcium 40 MG Tablet PO (20:51)
[2021-01-20] MEDS: Venlafaxine XR 37.5 MG Capsule PO (20:51)
[2021-01-20] MEDS: Finasteride 5 MG Tablet PO (20:52)
[2021-01-20] MEDS: MELATONIN 3 MG TABLET PO (20:53)
[2021-01-20 22:00] VITALS: PULSE 79; O2SAT 95
[2021-01-21] MEDS: Pantoprazole Sodium 40 MG Tablet PO (04:42)
[2021-01-21 04:43] VITALS: BP 121/64; PULSE 82
[2021-01-21] MEDS: Cholecalciferol (VIT D3) 25 MCG TABLET (1,000 UNITS) 125 MCG PO (04:43)
[2021-01-21] MEDS: Magnesium Chloride 64 MG Delay Rel.Tablet 128 MG PO (04:43)
[2021-01-21] MEDS: APIXABAN 5 MG TABLET PO ×2 (04:43→18:43)
[2021-01-21] MEDS: Metoprolol Tartrate 50 MG Tablet PO ×2 (04:43→18:45)
[2021-01-21] MEDS: amLODIPine 5 MG Tablet PO (04:43)
[2021-01-21] MEDS: Mineral Oil/Petrolatum Cr 1.75oz Bottle 1 APPLIC TOPICAL (04:47)
[2021-01-21] MEDS: Vitamin B Comp W-C Capsule 1 CAP PO (08:36)
[2021-01-21] MEDS: Calcium Carb/Vitamin D 1 TABLET Tablet PO ×2 (08:36→18:41)
[2021-01-21] MEDS: Iron Polysaccharide Complex 150 MG CAPSULE PO (08:36)
[2021-01-21] MEDS: Furosemide 40 MG Tablet PO ×2 (08:36→18:46)
[2021-01-21] MEDS: Multivitamins,Ther W-Minerals Tablet 1 TABLET PO (08:36)
[2021-01-21] MEDS: Polyethylene Glycol 3350 17 GM PACKET PO (08:38)
--- NOTE | 2021-01-21 09:16 | NURSING ---
Left knee palpated, tender to touch and feels significantly warmer than other areas of his body, pt is expressing increased concern, pt on anticoagulant therapy at this but was previously on hold d/t effusion. Pt previously on ATB for cellulitis. Tristin was called to check on status of precert and update on increased warmth, Tristin said to allow 15 days for review
--- NOTE | 2021-01-21 10:03 | CASEMGMT ---
Social Work SW met with pt and informed that NRD with insurance is 01/25 and insurance indicates continued stay will not be approved at that time if improvement is not shown. Pt is understanding and plans to return home with at time of discharge. Pt does not want to consider ECF placement. Pt does have a hospital bed, lift chair, walker and cane. Pt states he is uncertain if his walker can fit through the bathroom door and therefore he may need a BSC. Pt is agreeable to continue with [facility] at time of discharge. Discussed stairs into house and pt is concerned about this. SW informed that [facility] could assess for feasibility of a temporary ramp, but unsure if they can install in a weeks time. Pt states he will consider this and knows how to contact them if he thinks this is necessary. Pt concerned about knee and feels there is something wrong with it that has not been diagnosed. MRI has been requested and waiting on precert from insurance. SW will continue to follow. CHRISTIANO Lam
[2021-01-21 11:49] VITALS: BP 116/60; PULSE 77; RESP 15; TEMP 35.8; O2SAT 94
[2021-01-21 13:01] VITALS: PULSE 78; RESP 16; O2SAT 96
[2021-01-21 13:58] LABS: Absolute Lymphocyte Count 0.64 X10^3/uL (0.83-4.51); Absolute Neutrophil Count 4.4 X10^3/uL (2.0-7.7); Basophil# 0.05 X10^3/uL; Basophil% 0.9 % (0-1); Eosinophil# 0.23 X10^3/uL; Eosinophils% 4.1 % (0-5); Hematocrit 33.1 % (40-54); Hemoglobin 9.7 g/dL (13.0-16.5); Lymphocyte # 0.64 X10^3/ul (0.83-4.51); Lymphocyte % 11.4 % (19-41); Mean Corp Hgb Conc 29.3 g/dL (32-36); Mean Corpuscular Hgb 27.1 pg (27.0-32.0); Mean Corpuscular Volume 92.5 fL (80-94); Mean Platelet Vol. 9.6 fl (6.2-12.0); Monocyte# 0.33 X10^3/uL; Monocyte% 5.9 % (0-10); NRBC Flagged by Analyzer 0 % (0-5); Neutrophil # 4.35 X10^3/uL (2.7-7.7); Neutrophil % 77.3 % (47-70); Platelet Count 185 K/mm3 (150-450); RBC Distribution Width CV 15.8 % (11.6-14.6); RBC Distribution Width SD 53.1 fl (35.1-43.9); Red Blood Count 3.58 M/mm3 (4.6-6.2); White Blood Count 5.6 K/mm3 (4.4-11.0)
[2021-01-21] MEDS: Clindamycin HCl 150 MG Capsule 300 MG PO ×2 (14:34→21:44)
[2021-01-21] MEDS: Doxycycline 100 MG CAPSULE PO (18:42)
[2021-01-21 18:45] VITALS: BP 124/68; PULSE 83
[2021-01-21] MEDS: MELATONIN 3 MG TABLET PO (21:44)
[2021-01-21] MEDS: Venlafaxine XR 37.5 MG Capsule PO (21:44)
[2021-01-21] MEDS: Finasteride 5 MG Tablet PO (21:44)
[2021-01-21] MEDS: Atorvastatin Calcium 40 MG Tablet PO (21:45)
[2021-01-21] MEDS: Tamsulosin HCl 0.4 MG Capsule PO (21:45)
[2021-01-22 05:42] VITALS: BP 104/59; PULSE 78
[2021-01-22] MEDS: Polyethylene Glycol 3350 17 GM PACKET PO (05:43)
[2021-01-22] MEDS: Pantoprazole Sodium 40 MG Tablet PO (05:43)
[2021-01-22] MEDS: Cholecalciferol (VIT D3) 25 MCG TABLET (1,000 UNITS) 125 MCG PO (05:43)
[2021-01-22 05:44] VITALS: PULSE 78
[2021-01-22] MEDS: Magnesium Chloride 64 MG Delay Rel.Tablet 128 MG PO (05:44)
[2021-01-22] MEDS: amLODIPine 5 MG Tablet PO (05:44)
[2021-01-22] MEDS: Metoprolol Tartrate 50 MG Tablet PO ×2 (05:44→17:43)
[2021-01-22] MEDS: APIXABAN 5 MG TABLET PO ×2 (05:44→17:43)
[2021-01-22] MEDS: Doxycycline 100 MG CAPSULE PO ×2 (05:44→17:43)
[2021-01-22] MEDS: Clindamycin HCl 150 MG Capsule 300 MG PO ×3 (05:46→21:59)
[2021-01-22] MEDS: Mineral Oil/Petrolatum Cr 1.75oz Bottle 1 APPLIC TOPICAL (05:47)
[2021-01-22] MEDS: Iron Polysaccharide Complex 150 MG CAPSULE PO (08:05)
[2021-01-22] MEDS: Furosemide 40 MG Tablet PO ×2 (08:05→17:43)
[2021-01-22] MEDS: Calcium Carb/Vitamin D 1 TABLET Tablet PO ×2 (08:05→17:43)
[2021-01-22] MEDS: Vitamin B Comp W-C Capsule 1 CAP PO (08:06)
[2021-01-22] MEDS: Multivitamins,Ther W-Minerals Tablet 1 TABLET PO (08:06)
[2021-01-22 16:34] VITALS: BP 117/53; PULSE 79; RESP 18; TEMP 36.8; O2SAT 98
[2021-01-22 17:43] VITALS: PULSE 79
[2021-01-22] MEDS: Atorvastatin Calcium 40 MG Tablet PO (21:59)
[2021-01-22] MEDS: MELATONIN 3 MG TABLET PO (21:59)
[2021-01-22] MEDS: Tamsulosin HCl 0.4 MG Capsule PO (21:59)
[2021-01-22] MEDS: Venlafaxine XR 37.5 MG Capsule PO (22:00)
[2021-01-22] MEDS: Finasteride 5 MG Tablet PO (22:00)
[2021-01-23] MEDS: Polyethylene Glycol 3350 17 GM PACKET PO (05:49)
[2021-01-23 05:50] VITALS: BP 102/60; PULSE 75
[2021-01-23] MEDS: Doxycycline 100 MG CAPSULE PO ×2 (05:50→17:12)
[2021-01-23] MEDS: APIXABAN 5 MG TABLET PO ×2 (05:50→17:12)
[2021-01-23] MEDS: Metoprolol Tartrate 50 MG Tablet PO ×2 (05:50→17:12)
[2021-01-23] MEDS: Magnesium Chloride 64 MG Delay Rel.Tablet 128 MG PO (05:50)
[2021-01-23] MEDS: Cholecalciferol (VIT D3) 25 MCG TABLET (1,000 UNITS) 125 MCG PO (05:50)
[2021-01-23] MEDS: Clindamycin HCl 150 MG Capsule 300 MG PO ×3 (05:51→22:19)
[2021-01-23] MEDS: amLODIPine 5 MG Tablet PO (05:51)
[2021-01-23] MEDS: Pantoprazole Sodium 40 MG Tablet PO (05:51)
[2021-01-23] MEDS: Mineral Oil/Petrolatum Cr 1.75oz Bottle 1 APPLIC TOPICAL (05:55)
[2021-01-23 07:12] LABS: Absolute Lymphocyte Count 0.52 X10^3/uL (0.83-4.51); Absolute Neutrophil Count 3.2 X10^3/uL (2.0-7.7); Basophil# 0.03 X10^3/uL; Basophil% 0.7 % (0-1); Eosinophil# 0.22 X10^3/uL; Hemoglobin 9.7 g/dL (13.0-16.5); Lymphocyte # 0.52 X10^3/ul (0.83-4.51); Lymphocyte % 11.9 % (19-41); Mean Corp Hgb Conc 29.4 g/dL (32-36); Mean Corpuscular Hgb 27.1 pg (27.0-32.0); Mean Corpuscular Volume 92.2 fL (80-94); Mean Platelet Vol. 10.1 fl (6.2-12.0); Monocyte# 0.37 X10^3/uL; Monocyte% 8.5 % (0-10); NRBC Flagged by Analyzer 0 % (0-5); Neutrophil # 3.21 X10^3/uL (2.7-7.7); Neutrophil % 73.4 % (47-70); POSITIVE DIFFERENTIAL YES; Platelet Count 173 K/mm3 (150-450); RBC Distribution Width CV 15.7 % (11.6-14.6); RBC Distribution Width SD 52.7 fl (35.1-43.9); Red Blood Count 3.58 M/mm3 (4.6-6.2); White Blood Count 4.4 K/mm3 (4.4-11.0)
[2021-01-23 07:15] LABS: Differential Indicated SCAN CRITERIA MET
[2021-01-23 07:59] LABS: Anion Gap 6 (5-15); BUN 17 mg/dL (7-18); BUN/Creat Ratio 21.8 RATIO (10-20); Calcium,Total 8.6 mg/dL (8.5-10.1); Chloride 101 mmol/L (98-107); Creatinine, Serum 0.78 mg/dL (0.70-1.30); EST Glomerular Filtration Rate 104 mL/min (>60); Est Glom Filt Rate - Afr Amer 125 mL/min (>60); Estimated Creatinine Clearance 72.21 ml/min; Glucose 113 mg/dL (74-106); Potassium 3.7 mmol/L (3.5-5.1); Sodium Level 138 mmol/L (136-145)
[2021-01-23 08:06] LABS: Differential Comment SCANNED
[2021-01-23] MEDS: Multivitamins,Ther W-Minerals Tablet 1 TABLET PO (09:09)
[2021-01-23] MEDS: Iron Polysaccharide Complex 150 MG CAPSULE PO (09:10)
[2021-01-23] MEDS: Calcium Carb/Vitamin D 1 TABLET Tablet PO ×2 (09:10→17:13)
[2021-01-23] MEDS: Vitamin B Comp W-C Capsule 1 CAP PO (09:10)
[2021-01-23] MEDS: Furosemide 40 MG Tablet PO ×2 (09:10→17:12)
[2021-01-23 10:17] VITALS: PULSE 68; RESP 16; O2SAT 96
[2021-01-23 14:16] VITALS: BP 129/55; PULSE 85; RESP 17; TEMP 36.1; O2SAT 91
[2021-01-23 17:12] VITALS: PULSE 85
[2021-01-23] MEDS: Atorvastatin Calcium 40 MG Tablet PO (22:19)
[2021-01-23] MEDS: Tamsulosin HCl 0.4 MG Capsule PO (22:19)
[2021-01-23] MEDS: Finasteride 5 MG Tablet PO (22:19)
[2021-01-23] MEDS: MELATONIN 3 MG TABLET PO (22:19)
[2021-01-23] MEDS: Venlafaxine XR 37.5 MG Capsule PO (22:19)
[2021-01-24 05:16] VITALS: BP 115/61; PULSE 82
[2021-01-24] MEDS: amLODIPine 5 MG Tablet PO (05:16)
[2021-01-24] MEDS: APIXABAN 5 MG TABLET PO ×2 (05:16→17:58)
[2021-01-24] MEDS: Cholecalciferol (VIT D3) 25 MCG TABLET (1,000 UNITS) 125 MCG PO (05:16)
[2021-01-24] MEDS: Metoprolol Tartrate 50 MG Tablet PO ×2 (05:16→17:59)
[2021-01-24] MEDS: Doxycycline 100 MG CAPSULE PO ×2 (05:17→17:57)
[2021-01-24] MEDS: Magnesium Chloride 64 MG Delay Rel.Tablet 128 MG PO (05:17)
[2021-01-24] MEDS: Pantoprazole Sodium 40 MG Tablet PO (05:17)
[2021-01-24] MEDS: Clindamycin HCl 150 MG Capsule 300 MG PO ×3 (05:18→21:34)
[2021-01-24] MEDS: Vitamin B Comp W-C Capsule 1 CAP PO (07:52)
[2021-01-24] MEDS: Furosemide 40 MG Tablet PO ×2 (07:53→17:59)
[2021-01-24] MEDS: Iron Polysaccharide Complex 150 MG CAPSULE PO (07:53)
[2021-01-24] MEDS: Calcium Carb/Vitamin D 1 TABLET Tablet PO ×2 (07:53→17:58)
[2021-01-24] MEDS: Multivitamins,Ther W-Minerals Tablet 1 TABLET PO (07:53)
[2021-01-24] MEDS: Mineral Oil/Petrolatum Cr 1.75oz Bottle 1 APPLIC TOPICAL (07:54)
--- NOTE | 2021-01-24 12:42 | NURSING ---
MRI precert approved, hard order and prior auth faxed to MRI.
[2021-01-24 14:14] VITALS: BP 114/54; PULSE 77; RESP 17; TEMP 36.9; O2SAT 96
[2021-01-24 17:59] VITALS: BP 130/72; PULSE 94
[2021-01-24 20:31] VITALS: PULSE 85; RESP 16; O2SAT 97
--- NOTE | 2021-01-24 21:01 | NURSING ---
Patient asked this Nurse to notify OT and let them know he did not want to do a shower in the morning d\t some bad news he received. I asked patient what bad news and he stated, My MRI results, I read them online myself. Explained to patient I was unable to call Therapy at this time, but I did not see why he couldn't still do his therapy session. Also told patient if I seen therapy in the morning I would advise them.
[2021-01-24] MEDS: Venlafaxine XR 37.5 MG Capsule PO (21:34)
[2021-01-24] MEDS: MELATONIN 3 MG TABLET PO (21:34)
[2021-01-24] MEDS: Tamsulosin HCl 0.4 MG Capsule PO (21:34)
[2021-01-24] MEDS: Finasteride 5 MG Tablet PO (21:34)
[2021-01-24] MEDS: Atorvastatin Calcium 40 MG Tablet PO (21:34)
--- NOTE | 2021-01-25 01:05 | NURSING ---
Patient's left foot dressing left CARLOS per patient request.
[2021-01-25] MEDS: Pantoprazole Sodium 40 MG Tablet PO (05:13)
[2021-01-25 05:14] VITALS: BP 137/71; PULSE 96
[2021-01-25] MEDS: Polyethylene Glycol 3350 17 GM PACKET PO (05:14)
[2021-01-25] MEDS: Magnesium Chloride 64 MG Delay Rel.Tablet 128 MG PO (05:14)
[2021-01-25] MEDS: Doxycycline 100 MG CAPSULE PO ×2 (05:14→17:03)
[2021-01-25] MEDS: Metoprolol Tartrate 50 MG Tablet PO ×2 (05:14→17:03)
[2021-01-25] MEDS: Clindamycin HCl 150 MG Capsule 300 MG PO ×3 (05:14→20:48)
[2021-01-25] MEDS: Cholecalciferol (VIT D3) 25 MCG TABLET (1,000 UNITS) 125 MCG PO (05:14)
[2021-01-25] MEDS: APIXABAN 5 MG TABLET PO (05:14)
[2021-01-25] MEDS: amLODIPine 5 MG Tablet PO (05:14)
--- NOTE | 2021-01-25 05:24 | NURSING ---
Patient requesting for Clindamycin and Doxy to be discontinued. Patient reviewed his own MRI results and states, I don't think that is the issue.
[2021-01-25] MEDS: Multivitamins,Ther W-Minerals Tablet 1 TABLET PO (08:20)
[2021-01-25] MEDS: Iron Polysaccharide Complex 150 MG CAPSULE PO (08:20)
[2021-01-25] MEDS: Vitamin B Comp W-C Capsule 1 CAP PO (08:20)
[2021-01-25] MEDS: Calcium Carb/Vitamin D 1 TABLET Tablet PO ×2 (08:20→17:03)
[2021-01-25] MEDS: Furosemide 40 MG Tablet PO ×2 (08:21→17:03)
[2021-01-25] MEDS: Mineral Oil/Petrolatum Cr 1.75oz Bottle 1 APPLIC TOPICAL (08:22)
--- NOTE | 2021-01-25 09:12 | NURSING ---
Dr. Giles updated on MRI results, N.O. for Dr. Novak consult.
[2021-01-25 10:00] VITALS: PULSE 75; RESP 18; O2SAT 93
--- NOTE | 2021-01-25 10:45 | CON.PCM.OR_ITS ---
HPI Consult Data Date of Consult: 01/25/21 HPI Narrative HPI Narrative: JAHAIRA MAYORGA, is a 75 M who is being consulted today after a fall on 12/31/2020 and an abnormal MRI of the left knee from 01/24/2021. Patient states he presented to the ED on 12/31/2020 after a fall an x-ray was done. He states he was then sent to [facility] due to having multiple issues - it was felt he would be best served going back to the facility where the heart surgery was done. Patient states he has had some difficulty walking and issues with fluid retention since his bypass and valve surgery in November of 2020. He was at [facility] for a week and then he was transported back to [facility] for rehab that was recommenced by PT at [facility]. He states that [facility] he could not take any steps without instability, however, now he can ambulate better down the spencer with a walker and knee brace. He states he is not in much pain today 06/23. His pain is felt above his left knee and in the area of his left patella. He states he has instability and locking instances. There was a concern about possible cellulitis in the left knee on 01/21/[address] Giles giuseppe fredo him clindamycin and doxycycline. He has a history of eosinophilic fascitis and was on retirement steroid for this. He had a bilateral leg ablations, left leg 2018 and right leg 2012. He has had E uflexxa and steroid injections in his left knee. He thinks his last injection was Euflexxa in June [address] Dickey. He is on Eliquis. [facility] Medical History (Updated 01/08/21 @ 16:[address] Melvin Giles MD) Anal fissure Aortic stenosis Bilateral inguinal hernia without obstruction or gangrene BPH (benign prostatic hyperplasia) Cerebral aneurysm Chronic venous insufficiency Degeneration of intervertebral disc Eosinophilic fasciitis Essential hypertension GERD (gastroesophageal reflux disease) Hyperlipidemia Hyperpigmentation Lipodermatosclerosis Non-healing wound of lower extremity Obesity (BMI 30-39.9) Open wound Peripheral vascular disease of lower extremity with ulceration Rosacea Venous hypertension, chronic, with ulcer and inflammation Venous stasis ulcer Vertigo Home Medications finasteride 5 mg PO QHS 07/08/17 [History Last Taken 07/08/17] lorazepam 0.5 mg PO TID PRN PRN 07/08/17 [History Last Taken Unknown] pantoprazole 40 mg PO QODAY 07/08/17 [History Last Taken 01/08/21] tamsulosin 0.4 mg PO DAILY 07/08/17 [History Last Taken 07/08/17] biotin 10,000 mcg capsule 10,000 mcg PO DAILY cap 11/27/18 [History Last Taken Unknown] calcium carbonate-vitamin D3 600 mg calcium-200 unit capsule 1 cap PO BID cap 11/27/18 [History Last Taken Unknown] docusate sodium 100 mg capsule 100 mg PO DAILY 11/27/18 [History Last Taken Unknown] magnesium 250 mg tablet 400 mg PO DAILY tab 11/27/18 [History Last Taken Unknown] polyethylene glycol 3350 17 gram/dose oral powder 17 g PO DAILY 11/27/18 [History Last Taken Unknown] vitamin B complex 1 tab PO DAILY 11/27/18 [History Last Taken Unknown] zinc 50 mg tablet 50 mg PO DAILY 11/27/18 [History Last Taken Unknown] aspirin 81 mg tablet,delayed release 81 mg PO DAILY 06/12/19 [History Last Taken Unknown] apixaban [Eliquis] 5 mg PO BID 12/31/20 [History Last Taken Unknown] furosemide [Lasix] 40 mg PO BID 12/31/20 [History Last Taken Unknown] metoprolol tartrate 50 mg PO Q12H 12/31/20 [History Last Taken Unknown] acetaminophen 500 mg PO Q6H PRN 01/08/21 [History Last Taken Unknown] amlodipine 5 mg PO DAILY 01/08/21 [History Last Taken Unknown] cholecalciferol (vitamin D3) [Vitamin D3] 125 mcg PO DAILY 01/08/21 [History Last Taken Unknown] docusate sodium [Colace] 50 mg PO DAILY 01/08/21 [History Last Taken Unknown] melatonin 3 mg PO QHS 01/08/21 [History Last Taken Unknown] mv,Ca,hap-dtdo-IZ-lycopene [Centrum Men] 1 tab PO DAILY 01/08/21 [History Last Taken Unknown] xq-tfy-KK-Rb-Nw-szubhuv-lutein [Centrum] 1 tab PO DAILY 01/08/21 [History Last Taken Unknown] rosuvastatin 20 mg PO DAILY 01/08/21 [History Last Taken Unknown] sennosides-docusate sodium [Senna-S] 1 tab PO BID 01/08/21 [History Last Taken Unknown] simethicone 80 mg PO Q4H PRN PRN 01/08/21 [History Last Taken Unknown] venlafaxine 37.5 mg PO DAILY 01/08/21 [History Last Taken Unknown] Allergy/AdvReac Type Severity Reaction Status Date / Time amoxicillin [From Augmentin] AdvReac Abd Verified 12/31/20 16:08 cramps/diarrhea clavulanic acid AdvReac Abd Verified 12/31/20 16:08 [From Augmentin] cramps/diarrhea ibuprofen [From Motrin] AdvReac GI bleed Verified 12/31/20 16:08 Family History Mother Cancer uterine Father Cancer skin Diabetes CAD (coronary artery disease) CABG Surgical History (Updated 01/08/21 @ 16:[address] Melvin Giles MD) History of aortic valve replacement History of basal cell carcinoma (BCC) excision History of colectomy History of excision of pilonidal cyst History of rectal sphincterotomy S/P CABG x 3 Social History (Updated 01/08/21 @ 16:[address] Melvin Giles MD) household members: spouse Smoking Status: Former smoker how long ago did patient quit smokin years ago alcohol intake: current alcohol intake frequency: 0-2 drinks per day Alcohol type: beer substance use type: does not use Vital Signs Vital Signs Vital Signs: 01/24/21 14:14 01/24/21 17:59 01/24/21 20:31 Temperature 98.4 F Temperature Source Oral Pulse Rate 77 94 85 Pulse Rhythm Regular Pulse Strength Normal (2+) Respiratory Rate 17 16 Respiratory Effort Normal Non-Labored Respiratory Depth Normal Respiratory Pattern Normal Blood Pressure 114/54 L 130/72 H Blood Pressure Mean 74 Blood Pressure Source Monitor Blood Pressure Position Sitting Blood Pressure Location Left Arm Pulse Ox 96 97 Oxygen Delivery Method Room Air Room Air 01/24/21 22:00 01/25/21 05:14 Temperature Temperature Source Pulse Rate 96 Pulse Rhythm Pulse Strength Normal (2+) Respiratory Rate Respiratory Effort Respiratory Depth Respiratory Pattern Blood Pressure 137/71 H Blood Pressure Mean Blood Pressure Source Blood Pressure Position Blood Pressure Location Pulse Ox Oxygen Delivery Method Weight Weight: 258 lb Body Mass Index (BMI) 34.4 Lab / Micro Data Result Diagrams: 01/23/21 06:50 01/23/21 06:50
--- NOTE | 2021-01-25 13:37 | PCM.CONS.GEN ---
Assessment & Plan Assessment/Plan (1) Rupture of left quadriceps tendon: QUALIFIERS: Encounter type: initial encounter Qualified Code(s): S76.112A - Strain of left quadriceps muscle, fascia and tendon, initial encounter PLAN: Delayed presentation of left quadriceps rupture date of injury 12/31/2020 Currently on Eliquis for recent cardiac surgery and left lower extremity cellulitis on antibiotics Will need left quadriceps tendon repair discussed this with the patient risk benefits alternatives of surgery versus nonsurgical treatment patient does wish to proceed with quadriceps tendon repair Due to his complicated cardiac recent history we will need to get medical clearance and cardiac clearance prior to proceeding surgically We will need okay from cardiology to stop Eliquis for 24 hours prior to surgery We will discuss with admitting physician about timing of surgery. HPI Consult Data Date of Consult: 01/25/21 HPI Narrative HPI Narrative: JAHAIRA MAYORGA, is a 75 M who is currently admitted to the transitional care unit. Patient had a mechanical fall on 12/31/2020 he presented to the emergency room department and it was felt the patient had hemarthrosis secondary to being on Eliquis and joint effusion. No fracture was visualized. He was unable to actively extend the leg however he was able to walk with a peg leg. Patient had cellulitis in the left lower extremity he has history of chronic lower extremity edema after his cardiac surgery this past November he was transferred to [facility]. He returned to the transitional care he has history of dorsal foot wound that is currently scabbed over on the left. He is currently on antibiotics for left lower extremity cellulitis. He is currently on Eliquis secondary to a recent coronary artery bypass graft and valve replacement surgery. Patient had recent MRI secondary to continued knee pain and joint effusion which showed a full-thickness quadriceps tendon rupture with retraction [facility] Medical History (Updated 01/25/21 @ 13:[address] Bryan Novak, DO) Anal fissure Aortic stenosis Bilateral inguinal hernia without obstruction or gangrene BPH (benign prostatic hyperplasia) Cerebral aneurysm Chronic venous insufficiency Degeneration of intervertebral disc Eosinophilic fasciitis Essential hypertension GERD (gastroesophageal reflux disease) Hyperlipidemia Hyperpigmentation Lipodermatosclerosis Non-healing wound of lower extremity Obesity (BMI 30-39.9) Open wound Peripheral vascular disease of lower extremity with ulceration Rosacea Venous hypertension, chronic, with ulcer and inflammation Venous stasis ulcer Vertigo Home Medications finasteride 5 mg PO QHS 07/08/17 [History Last Taken 07/08/17] lorazepam 0.5 mg PO TID PRN PRN 07/08/17 [History Last Taken Unknown] pantoprazole 40 mg PO QODAY 07/08/17 [History Last Taken 01/08/21] tamsulosin 0.4 mg PO DAILY 07/08/17 [History Last Taken 07/08/17] biotin 10,000 mcg capsule 10,000 mcg PO DAILY cap 11/27/18 [History Last Taken Unknown] calcium carbonate-vitamin D3 600 mg calcium-200 unit capsule 1 cap PO BID cap 11/27/18 [History Last Taken Unknown] docusate sodium 100 mg capsule 100 mg PO DAILY 11/27/18 [History Last Taken Unknown] magnesium 250 mg tablet 400 mg PO DAILY tab 11/27/18 [History Last Taken Unknown] polyethylene glycol 3350 17 gram/dose oral powder 17 g PO DAILY 11/27/18 [History Last Taken Unknown] vitamin B complex 1 tab PO DAILY 11/27/18 [History Last Taken Unknown] zinc 50 mg tablet 50 mg PO DAILY 11/27/18 [History Last Taken Unknown] aspirin 81 mg tablet,delayed release 81 mg PO DAILY 06/12/19 [History Last Taken Unknown] apixaban [Eliquis] 5 mg PO BID 12/31/20 [History Last Taken Unknown] furosemide [Lasix] 40 mg PO BID 12/31/20 [History Last Taken Unknown] metoprolol tartrate 50 mg PO Q12H 12/31/20 [History Last Taken Unknown] acetaminophen 500 mg PO Q6H PRN 01/08/21 [History Last Taken Unknown] amlodipine 5 mg PO DAILY 01/08/21 [History Last Taken Unknown] cholecalciferol (vitamin D3) [Vitamin D3] 125 mcg PO DAILY 01/08/21 [History Last Taken Unknown] docusate sodium [Colace] 50 mg PO DAILY 01/08/21 [History Last Taken Unknown] melatonin 3 mg PO QHS 01/08/21 [History Last Taken Unknown] mv,Ca,asp-smff-GQ-lycopene [Centrum Men] 1 tab PO DAILY 01/08/21 [History Last Taken Unknown] uj-ewl-PZ-Gj-He-hxtgiob-lutein [Centrum] 1 tab PO DAILY 01/08/21 [History Last Taken Unknown] rosuvastatin 20 mg PO DAILY 01/08/21 [History Last Taken Unknown] sennosides-docusate sodium [Senna-S] 1 tab PO BID 01/08/21 [History Last Taken Unknown] simethicone 80 mg PO Q4H PRN PRN 01/08/21 [History Last Taken Unknown] venlafaxine 37.5 mg PO DAILY 01/08/21 [History Last Taken Unknown] Allergy/AdvReac Type Severity Reaction Status Date / Time amoxicillin [From Augmentin] AdvReac Abd Verified 12/31/20 16:08 cramps/diarrhea clavulanic acid AdvReac Abd Verified 12/31/20 16:08 [From Augmentin] cramps/diarrhea ibuprofen [From Motrin] AdvReac GI bleed Verified 12/31/20 16:08 Family History Mother Cancer uterine Father Cancer skin Diabetes CAD (coronary artery disease) CABG Surgical History (Updated 01/08/21 @ 16:[address] Melvin Giles MD) History of aortic valve replacement History of basal cell carcinoma (BCC) excision History of colectomy History of excision of pilonidal cyst History of rectal sphincterotomy S/P CABG x 3 Social History (Updated 01/08/21 @ 16:[address] Melvin Giles MD) household members: spouse Smoking Status: Former smoker how long ago did patient quit smokin years ago alcohol intake: current alcohol intake frequency: 0-2 drinks per day Alcohol type: beer substance use type: does not use Physical Exam Const alert, oriented x3 and no apparent distress General Appearance: cooperative and comfortable Extremity Extremity Narrative: Bilateral lower extremity edema with Herrera wrap edema wraps. He does have a small 2 cm dorsal foot wound on the left without drainage superficial with scabbing. There is no erythema about the knee there is a joint effusion there is no collateral ligament instability he is unable to actively extend the knee and there is a palpable defect at the quadriceps insertion. I can passively extend him with pain Lab / Micro Data Result Diagrams: 01/23/21 06:50 01/23/21 06:50
--- NOTE | 2021-01-25 14:09 | NURSING ---
Dr. Danielle in to access pt, and ordered a cardiology consult for heart clearance for surgery. This nurse talked with Joel Pace regarding cardiology clearance, he is to see pt at 9am tomorrow 01/26/21, N.O. hold eliquis for surgery. Pt is scheduled to have surgery on 01/27/21 at 1330 as long as pt is cleared by cardiology.
[2021-01-25 14:10] VITALS: BP 115/57; PULSE 77; RESP 18; TEMP 36.1; O2SAT 98
[2021-01-25 17:03] VITALS: PULSE 77
[2021-01-25] MEDS: Venlafaxine XR 37.5 MG Capsule PO (20:48)
[2021-01-25] MEDS: Atorvastatin Calcium 40 MG Tablet PO (20:48)
[2021-01-25] MEDS: MELATONIN 3 MG TABLET PO (20:48)
[2021-01-25] MEDS: Tamsulosin HCl 0.4 MG Capsule PO (20:49)
[2021-01-25] MEDS: Finasteride 5 MG Tablet PO (20:51)
[2021-01-26 05:29] VITALS: BP 117/68; PULSE 85
[2021-01-26] MEDS: Doxycycline 100 MG CAPSULE PO ×2 (05:29→18:05)
[2021-01-26] MEDS: Clindamycin HCl 150 MG Capsule 300 MG PO ×3 (05:29→19:57)
[2021-01-26] MEDS: Metoprolol Tartrate 50 MG Tablet PO ×2 (05:29→18:05)
[2021-01-26] MEDS: Magnesium Chloride 64 MG Delay Rel.Tablet 128 MG PO (05:30)
[2021-01-26] MEDS: Cholecalciferol (VIT D3) 25 MCG TABLET (1,000 UNITS) 125 MCG PO (05:30)
[2021-01-26] MEDS: amLODIPine 5 MG Tablet PO (05:30)
[2021-01-26] MEDS: Pantoprazole Sodium 40 MG Tablet PO (05:30)
[2021-01-26] MEDS: Polyethylene Glycol 3350 17 GM PACKET PO (05:30)
[2021-01-26] MEDS: Mineral Oil/Petrolatum Cr 1.75oz Bottle 1 APPLIC TOPICAL (05:31)
[2021-01-26] MEDS: Iron Polysaccharide Complex 150 MG CAPSULE PO (07:50)
[2021-01-26] MEDS: Vitamin B Comp W-C Capsule 1 CAP PO (07:50)
[2021-01-26] MEDS: Multivitamins,Ther W-Minerals Tablet 1 TABLET PO (07:50)
[2021-01-26] MEDS: Calcium Carb/Vitamin D 1 TABLET Tablet PO ×2 (07:50→18:05)
--- NOTE | 2021-01-26 10:34 | NURSING ---
WERO CALLED AND STATED THAT THE PT IS GOOD TO GO FOR SURGERY TOMORROW AND WILL PUT NOTES IN LATER THIS AFTER NOON. RN AWARE
[2021-01-26] MEDS: Furosemide 40 MG Tablet PO ×2 (10:44→18:06)
--- NOTE | 2021-01-26 12:56 | NURSING ---
call put in to DR. RODRIGES OFFICE,WAITING TO HEAR BACK.
--- NOTE | 2021-01-26 13:21 | NURSING ---
DR. RODRIGES CALLED BACK AND STATED THAT THE PT WILL GO TO THE ACUTE SIDE AFTER SURGERY FOR OBSERVATION THEN BACK TO TCU WHEN READY. RN AND RABIA,SOC.WORKER AWARE.
--- NOTE | 2021-01-26 13:34 | CASEMGMT ---
Social Work Insurance issued LCD 01/28, [place] 01/29. Explained appeal rights. Pt stated he has surgery scheduled for 01/27. Confirmed with nursing. Nursing contacted Dr. Sierra to determine if pt would need overnight acute stay or return to TCU. stated overnight acute stay. Explained about to pt and that the social work supervisor/outpatient case manager on acute will assist with DC plans, whether that is home or if he requests TCU/SNF. Explained if pt choice is TCU/SNF, new precert would be needed and insurance will need to approve. Pt expressed understanding. Update nursing pt will DC for TCU to go to surgery. Plan: DC to surgery 01/27 CATHRYN Lou [employer]ERM[employer]
[2021-01-26 16:00] VITALS: BP 111/45; PULSE 84; RESP 20; TEMP 36; O2SAT 20
--- NOTE | 2021-01-26 16:32 | NURSING ---
IN TO SEE PT. STATED IF EVERY THING GOES WELL WITH SURGERY PT WILL COME BACK TO TCU DO T ACUTE IS SHORT ON BEDS. RN AND RABIA,SOC.WORKER UPDATED.
--- NOTE | 2021-01-26 16:38 | CASEMGMT ---
Addendum entered by Yessi He 01/27/21 16:00: Appeal completed - . Spoke with pt to plan DC needs. Pt requested [facility] PT/OT/SN, 3-in-1 commode, FWW, and will need w/c transport home d/t to immobilizer. [place] [facility] [place] Will schedule transport. Plan: pending appeal, DC 01/29, [facility] PT/OT/SN Original Note: Social Work Spoke with pt to discuss pt returning to TCU after surgery and insurance coverage. Pt elected to appeal insurance decision. Will await outcome from surgery and appeal. Yessi He, VICE PRESIDENT PAYER ENGRAVER [employer]
[2021-01-26 18:02] VITALS: BP 117/67; PULSE 86
[2021-01-26 18:05] VITALS: BP 117/67; PULSE 86
[2021-01-26] MEDS: Atorvastatin Calcium 40 MG Tablet PO (19:53)
[2021-01-26] MEDS: Tamsulosin HCl 0.4 MG Capsule PO (19:55)
[2021-01-26] MEDS: Venlafaxine XR 37.5 MG Capsule PO (19:55)
[2021-01-26] MEDS: Finasteride 5 MG Tablet PO (19:56)
[2021-01-26] MEDS: MELATONIN 3 MG TABLET PO (22:27)
[2021-01-27 05:53] VITALS: BP 125/63; PULSE 79
[2021-01-27] MEDS: Metoprolol Tartrate 50 MG Tablet PO ×2 (05:53→18:06)
[2021-01-27] MEDS: Pantoprazole Sodium 40 MG Tablet PO (05:53)
[2021-01-27] MEDS: amLODIPine 5 MG Tablet PO (05:53)
--- NOTE | 2021-01-27 11:02 | NURSING ---
Cleansed pt with CHG wipes, gown and socks changed. Clean linens applied to bed.
--- NOTE | 2021-01-27 11:58 | NURSING ---
pt off unit for surgery
--- NOTE | 2021-01-27 14:40 | PCM.OPRPT ---
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 He was seen at an outside facility and transferred to a transitional care unit upon which time an MRI was ordered of his knee demonstrating a full-thickness quadriceps rupture and hence my consultation he did admit to some chronic knee pain prior to this it was discussed with the patient risk benefits of surgery versus nonsurgical treatment, he understands that the delayed presentation increases the risk of postoperative stiffness and failure. risk benefits and alternatives were reviewed including risk of bleeding infection nerve, artery, bone, tissue damage, blood clot need for further surgery and continued pain. Procedure: Quadriceps tendon repair with #2 fiber tape and bio composite Arthrex 4.75 swivel lock x2 Patient was met the preoperative holding area once again the upper extremities and 5 up with patient position was marked. Patient was met by anesthesia brought back to the operating room wheeled cart transfer the upper table supine position. Anesthesia was started. A well-padded tourniquet was placed on the left upper thigh he was prepped and draped in usual sterile fashion a timeout was called to the proper patient procedure extremity being contemplated a midline incision was carried down through the skin and subcutaneous tissue over the quadriceps and patella there was hematoma which was removed the knee was thoroughly irrigated out there was no loose cartilage in the visualized portion of the knee. The quadriceps had a very degenerative appearance with poor delineation of muscle and tendon the end of the quadriceps was rongeured as well as the superior pole of the patella to attempt to aid in healing fiber tape was then passed in a Krak?w configuration up and down the quadriceps tendon with 2 fiber tapes leaving for fiber tape tails distally we then drilled tapped and placed 4.75 swivel locks into the patella we then secured the repair with additional FiberWire. The medial and lateral retinaculum were completely torn and were repaired again there is severe tissue degeneration however excellent repair was achieved. Following this a Betadine rinse followed by several liters of irrigation were used followed by closure with 2-0 Vicryl and sissy in the skin Aquacel Ag dressing thigh-high FENG hose and a T ROM was placed T ROM was locked in extension when unlocked was allowed to bend to 60 degrees. Patient was brought back to the PACU in stable condition all counts were correct no intraoperative complications. He will be allowed immediate weightbearing with the knee locked in full extension and he will be allowed to actively flex to 60 degrees with allow passive extension and active assisted extension at this time. Surgeon: Kishore
--- NOTE | 2021-01-27 14:48 | DCINST_ITS ---
Discharge Instructions Diet Discharge Diet: No restrictions Dressing / Incision Change Dressing in: 4 days Additional Dressing/Incision Instructions:: Patient is to leave dressing clean dry and intact on and in place and not removed for 4 days postoperatively. Patient is to wear T ROM knee brace locked in full extension when ambulating. He may unlock the brace to 60 degrees when not ambulating. He is not to actively extend the knee. Passive knee extension and active assisted extension is okay. Patient is to resume Eliquis 12 hours postoperatively. Patient will likely require pain medication and possibly muscle relaxants for quadricep spasm . Patient may remove brace with the knee extended while in bed but must have it on when performing any flexion and must have it locked in extension when ambulating. Patient is to follow-up in [address] Novak if he is still in the transitional care I will come and see him there. After the first 4 days patient may remove dressing and begin showering daily if not showering must have incision clean daily with antibacterial soap and warm water or Betadine and have dressing replaced with an ABD and thigh-high FENG hose. Call with any questions or concerns Follow Up Care Please Follow Up With: Bryan Novak DO When: 2 weeks Test Results: Test results from this visit will be discussed in further detail at your follow-up appointment, if applicable. Discharge Plan Admission Admit Date/Time: 01/08/21 14:22 Attending Provider: Melvin Giles Chi Primary Care Provider: Antonio Rangel Consulting Providers: Bryan Novak Discharge Orders/Prescriptions Prescriptions: No Action zinc 50 mg tablet 50 mg PO DAILY RF: 0 biotin [Etienne Biotin] 10,000 mcg capsule 10,000 mcg PO DAILY RF: 0 docusate sodium 100 mg capsule 100 mg PO DAILY RF: 0 polyethylene glycol 3350 17 gram/dose powder 17 g PO DAILY RF: 0 magnesium 250 mg tablet 400 mg PO DAILY RF: 0 vitamin B complex Tablet 1 tab PO DAILY RF: 0 calcium carbonate-vitamin D3 600 mg calcium-200 unit capsule 600 mg calcium- 200 unit capsule 1 cap PO BID RF: 0 aspirin [Adult Aspirin Regimen] 81 mg tablet,delayed release (DR/EC) 81 mg PO DAILY RF: 0 tamsulosin 0.4 MG capsule 0.4 mg PO DAILY RF: 0 finasteride 5 MG tablet 5 mg PO QHS RF: 0 pantoprazole 40 MG tablet 40 mg PO QODAY RF: 0 lorazepam 0.5 MG tablet 0.5 mg PO TID PRN PRN (Reason: Anxiety) RF: 0 metoprolol tartrate 50 mg Tablet 50 mg PO Q12H RF: 0 furosemide [Lasix] 20 mg Tablet 40 mg PO BID RF: 0 Eliquis 5 mg Tablet 5 mg PO BID RF: 0 sennosides-docusate sodium [Senna-S] 8.6-50 mg Tablet 1 tab PO BID RF: 0 Colace 50 mg Capsule 50 mg PO DAILY RF: 0 melatonin 3 mg Tablet 3 mg PO QHS RF: 0 amlodipine 5 mg Tablet 5 mg PO DAILY RF: 0 acetaminophen 500 mg Tablet 500 mg PO Q6H PRN (Reason: Pain) RF: 0 simethicone 80 mg Tablet,Chewable 80 mg PO Q4H PRN PRN (Reason: Abdominal Discomfort) RF: 0 rosuvastatin 20 mg Tablet 20 mg PO DAILY RF: 0 Centrum 0.4-162-18 mg Tablet 1 tab PO DAILY RF: 0 cholecalciferol (vitamin D3) [Vitamin D3] 125 mcg (5,000 unit) Tablet 125 mcg PO DAILY RF: 0 Centrum Men 8 mg iron- 200 mcg-600 mcg Tablet 1 tab PO DAILY RF: 0 venlafaxine 37.5 MG capsule,extended release 24hr 37.5 mg PO DAILY RF: 0 Disposition Discharge Orders: Discharge Patient (Routine); Ordered 01/27/21 Ordered By: Dr. Bryan Novak
--- NOTE | 2021-01-27 15:11 | PCM.PN.ORT ---
Subjective Subjective Awake and alert in the PACU doing well is having pain left knee has not received femoral block Objective Data Objective Data Vital Signs: Vital Signs Temp Pulse Resp BP Pulse Ox 96.8 F L 79 20 H 125/63 H 20 01/26/21 16:00 01/27/21 05:53 01/26/21 16:00 01/27/21 05:53 01/26/21 16:00 Oxygen Delivery Method Room Air Weight: 260 lb 3 oz Body Mass Index (BMI) 34.4 Intake & Output: Intake and Output for Last 24 Hours 01/25/21 01/26/21 01/27/21 23:59 23:59 23:59 Intake Total 690 / 690 1100 / 1100 150 / 150 Output Total 275 / 275 600 / 600 Balance 690 / 690 825 / 825 -450 / -450 Lab / Micro Data Result Diagrams: 01/23/21 06:50 01/23/21 06:50 Physical Exam Const alert and oriented x3 General Appearance: cooperative Extremity Extremity Narrative: Dressing clean dry and intact compartments soft neurovascular intact thigh-high and T ROM on Assessment & Plan Assessment/Plan (1) Quadriceps muscle rupture: QUALIFIERS: Encounter type: subsequent encounter Laterality: left Qualified Code(s): S76.112D - Strain of left quadriceps muscle, fascia and tendon, subsequent encounter PLAN: Postop day #0 left quadriceps tendon repair Start Eliquis 12 hours postoperatively FENG hose SCDs on nonoperative extremity Dressing to remain on for 4 days postoperatively then may remove prior to for shower, then should be clean daily with antibacterial soap and warm water and dry dressing replaced with thigh-high FENG hose over top PT OT weightbearing as tolerated Must have knee immobilizer locked in extension while ambulating May unlock brace to 60 degrees when not ambulating No active knee extension Active knee flexion to 60 degrees is okay but not past at this point Passive knee extension and active assisted extension with therapy is okay Ashley should be removed 14 to 17 days postop if patient is discharged he can follow-up in the office in 2 weeks if he is still in the transitional care please notify Dr. Novak and he will come and see the patient Pain control patient has significant spasming and retraction secondary to the timing of injury and surgery oxycodone 5 to 10 mg for now will increase to 15 mg if needed Call with any questions or concerns
--- NOTE | 2021-01-27 17:19 | NURSING ---
patient returned from surgery
[2021-01-27] MEDS: Calcium Carb/Vitamin D 1 TABLET Tablet PO (18:04)
[2021-01-27] MEDS: Acetaminophen 500 MG Tablet 1000 MG PO (18:04)
[2021-01-27] MEDS: Furosemide 40 MG Tablet PO (18:04)
[2021-01-27] MEDS: Doxycycline 100 MG CAPSULE PO (18:05)
[2021-01-27 18:06] VITALS: PULSE 89
[2021-01-27 18:09] VITALS: BP 119/65; PULSE 89; RESP 18; TEMP 35.8; O2SAT 95
[2021-01-27 22:10] VITALS: PULSE 94; RESP 16; O2SAT 93
[2021-01-27] MEDS: Venlafaxine XR 37.5 MG Capsule PO (22:17)
[2021-01-27] MEDS: Clindamycin HCl 150 MG Capsule 300 MG PO (22:17)
[2021-01-27] MEDS: MELATONIN 3 MG TABLET PO (22:18)
[2021-01-27] MEDS: Atorvastatin Calcium 40 MG Tablet PO (22:18)
[2021-01-27] MEDS: Finasteride 5 MG Tablet PO (22:18)
[2021-01-27] MEDS: Tamsulosin HCl 0.4 MG Capsule PO (22:18)
[2021-01-28] MEDS: Magnesium Chloride 64 MG Delay Rel.Tablet 128 MG PO (05:32)
[2021-01-28] MEDS: Clindamycin HCl 150 MG Capsule 300 MG PO ×2 (05:32→14:26)
[2021-01-28] MEDS: Polyethylene Glycol 3350 17 GM PACKET PO (05:32)
[2021-01-28 05:33] VITALS: BP 106/66; PULSE 78
[2021-01-28] MEDS: Pantoprazole Sodium 40 MG Tablet PO (05:33)
[2021-01-28] MEDS: Doxycycline 100 MG CAPSULE PO ×2 (05:33→18:26)
[2021-01-28] MEDS: Metoprolol Tartrate 50 MG Tablet PO ×2 (05:33→18:26)
[2021-01-28] MEDS: amLODIPine 5 MG Tablet PO (05:33)
[2021-01-28] MEDS: Cholecalciferol (VIT D3) 25 MCG TABLET (1,000 UNITS) 125 MCG PO (05:33)
[2021-01-28] MEDS: APIXABAN 5 MG TABLET PO ×2 (05:35→18:26)
[2021-01-28] MEDS: Mineral Oil/Petrolatum Cr 1.75oz Bottle 1 APPLIC TOPICAL (05:39)
[2021-01-28] MEDS: Iron Polysaccharide Complex 150 MG CAPSULE PO (08:09)
[2021-01-28] MEDS: Calcium Carb/Vitamin D 1 TABLET Tablet PO ×2 (08:09→18:25)
[2021-01-28] MEDS: Multivitamins,Ther W-Minerals Tablet 1 TABLET PO (08:09)
[2021-01-28] MEDS: Vitamin B Comp W-C Capsule 1 CAP PO (08:10)
[2021-01-28] MEDS: Furosemide 40 MG Tablet PO ×2 (08:11→18:26)
[2021-01-28] MEDS: Acetaminophen 500 MG Tablet 1000 MG PO ×2 (08:14→14:29)
--- NOTE | 2021-01-28 08:57 | PCM.PN.ORT ---
Subjective Subjective Upon entering the room the patient was seated and resting comfortably. He states he has not been in much pain except just briefly yesterday as the anesthesia wore off. He had no issues overnight. He is worried about going home because he is unsure if his will be able to help him. Denies chest pain, shortness of breath, nausea, vomiting, fevers, chills. He would like to be educated on the knee brace he was given. States that PT will be started today. Objective Data Objective Data Vital Signs: Vital Signs Temp Pulse Resp BP Pulse Ox 96.5 F L 78 16 106/66 93 01/27/21 18:09 01/28/21 05:33 01/27/21 22:10 01/28/21 05:33 01/27/21 22:10 Oxygen Delivery Method Room Air Weight: 260 lb 3 oz Body Mass Index (BMI) 34.4 Intake & Output: Intake and Output for Last 24 Hours 01/26/21 01/27/21 01/28/21 23:59 23:59 23:59 Intake Total 1100 / 1100 390 / 390 240 / 240 Output Total 275 / 275 600 / 600 700 / 700 Balance 825 / 825 -210 / -210 -460 / -460 Lab / Micro Data Result Diagrams: 01/23/21 06:50 01/23/21 06:50 Physical Exam Const alert, oriented x3 and no apparent distress General Appearance: cooperative and comfortable Extremity Extremity Narrative: Dressing clean, dry and intact. Palpable pedal pulses. Soft compartments. Neurovascularly intact. T-ROM in place. Assessment & Plan Assessment/Plan (1) Quadriceps muscle rupture: QUALIFIERS: Encounter type: subsequent encounter Laterality: left Qualified Code(s): S76.112D - Strain of left quadriceps muscle, fascia and tendon, subsequent encounter PLAN: Postop day #1 left quadriceps tendon repair: Start Eliquis 12 hours postoperatively FENG hose SCDs on nonoperative extremity Dressing to remain on for 4 days postoperatively then may remove prior to for shower, then should be clean daily with antibacterial soap and warm water and dry dressing replaced with thigh-high FENG hose over top PT/OT weightbearing as tolerated Must have knee immobilizer locked in extension while ambulating May unlock brace to 60 degrees when not ambulating No active knee extension Active knee flexion to 60 degrees is okay but not past at this point Passive knee extension and active assisted extension with therapy is okay In addition, as discussed with the patient he should start doing straight leg raises (quad sets) multiple times per day, as tolerated, due to quad atrophy. He does not need to wear his brace to do the straight leg raises. An order for straight leg raises, in addition to what is above, was placed for PT today. Ashley should be removed 14 to 17 days postop if patient is discharged he can follow-up in the office in 2 weeks if he is still in the transitional care please notify Dr. Novak and he will come and see the patient Pain control patient has significant spasming and retraction secondary to the timing of injury and surgery oxycodone 5 to 10 mg for now will increase to 15 mg if needed Call with any questions or concerns
--- NOTE | 2021-01-28 13:10 | CASEMGMT ---
Social Work BIMS and PHQ-9 completed for MDS assessment. 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
--- NOTE | 2021-01-28 14:57 | PCM.DC.SUM ---
Providers Date of Admission: 01/08/21 Primary Care Physician: Dr. Antonio Rangel MD Consultations 01/25/21 07:45 Consult: Orthopedics Routine Consulting Provider: Bryan Novak Reason for Consult: Left quadriceps tendon tear, left medial patellofemoral ligament tear. EMERGENT Consult: No MD Notified: Yes Date Notified: 01/25/21 Time Notified: 07:45 Method of Notification: phone call Reason For Visit: CELLULITIS Diagnosis Discharge Diagnosis (1) Quadriceps muscle rupture: Status: Acute Code(s): S76.119A - Strain of unspecified quadriceps muscle, fascia and tendon, initial encounter Qualifiers: Encounter type: subsequent encounter Laterality: left Qualified Code(s): S76.112D - Strain of left quadriceps muscle, fascia and tendon, subsequent encounter Medications at Discharge Home Medications finasteride 5 mg PO QHS 07/08/17 lorazepam 0.5 mg PO TID PRN PRN 07/08/17 pantoprazole 40 mg PO QODAY 07/08/17 tamsulosin 0.4 mg PO DAILY 07/08/17 biotin 10,000 mcg capsule 10,000 mcg PO DAILY cap 11/27/18 calcium carbonate-vitamin D3 600 mg calcium-200 unit capsule 1 cap PO BID cap 11/27/18 magnesium 250 mg tablet 400 mg PO DAILY tab 11/27/18 polyethylene glycol 3350 17 gram/dose oral powder 17 g PO DAILY 11/27/18 vitamin B complex 1 tab PO DAILY 11/27/18 zinc 50 mg tablet 50 mg PO DAILY 11/27/18 Eliquis 5 mg PO BID 12/31/20 furosemide [Lasix] 40 mg PO BID 12/31/20 metoprolol tartrate 50 mg PO Q12H 12/31/20 Centrum Men 1 tab PO DAILY 01/08/21 acetaminophen 500 mg PO Q6H PRN 01/08/21 amlodipine 5 mg PO DAILY 01/08/21 cholecalciferol (vitamin D3) [Vitamin D3] 125 mcg PO DAILY 01/08/21 melatonin 3 mg PO QHS 01/08/21 [id number]-GT-[id number]-Hy-cfanepb-lutein 1 tab PO DAILY 01/08/21 rosuvastatin 20 mg PO DAILY 01/08/21 sennosides-docusate sodium [Senna-S] 1 tab PO BID 01/08/21 simethicone 80 mg PO Q4H PRN PRN 01/08/21 venlafaxine 37.5 mg PO DAILY 01/08/21 oxycodone 5 - 10 mg PO Q4H PRN 7 Days tab 01/27/21 oxycodone 5 - 10 mg PO Q4H PRN PRN 7 Days #60 tab 01/27/21 apixaban [Eliquis] 5 mg PO BID #0 tab 01/28/21 polysaccharide iron complex [Ferrex 150] 150 mg PO DAILYCM 30 Days #30 cap 01/28/21 Hospital Course Operations - (Left quadricps tendon repair.) Procedures None Summary of Care Provided Minutes Spent on Discharge: 35 Hospital Course: 75 year old male with below past medical history hospitalized for left knee pain with effusion, unable to walk, complicated by bilateral lower extremity cellulitis, acute on chronic diastolic congestive heart failure, admitted to TCU with debility, here for rehabilitation, strengthening, prior to discharge home with . MRI left knee showed left quadriceps tendon rupture. 01/27/2021 Dr. Novak performed left quadriceps tendon repair. Discharge home with 01/29/2021, [facility] PT/OT/SN. Physical Exam Const alert and oriented x3 General Appearance: cooperative HEENT normocephalic Eyes PERRL and EOMs intact bilaterally Neck supple, no JVD and no carotid bruits Resp normal respiratory effort, normal air movement and clear to auscultation bilaterally Cardio regular rate and regular rhythm GI normal to inspection, nondistended, normoactive bowel sounds, non-tender and non-distended Extremity normal capillary refill Extremity Narrative: Left lower extremity immobilizer. General Extremity: Negative for edema Skin no rashes or lesions noted General Skin Exam: no breakdown Psych affect normal Appearance: appropriate Weight / BMI Weight Weight: 118.019 kg Body Mass Index (BMI) 34.4 ABG / Lab / Microbiology Data Result Diagrams: 01/23/21 06:50 01/23/21 06:50 D/C Instructions Discharge Diet: No restrictions Discharge Activity: Return to Normal Activity, May Shower and Use Walker Weight Bearing Status: Weight bearing as tolerated Call your doctor if you observe: Fever of 101 or Higher, Inability to urinate, Inability to have a bowel movement, Shortness of breath, Dizziness, Fainting spells, Chest pain and Uncontrolled pain Additional Dressing/Incision Instructions: Patient is to leave dressing clean dry and intact on and in place and not removed for 4 days postoperatively. Patient is to wear T ROM knee brace locked in full extension when ambulating. He may unlock the brace to 60 degrees when not ambulating. He is not to actively extend the knee. Passive knee extension and active assisted extension is okay. Patient is to resume Eliquis 12 hours postoperatively. Patient will likely require pain medication and possibly muscle relaxants for quadricep spasm. Patient may remove brace with the knee extended while in bed but must have it on when performing any flexion and must have it locked in extension when ambulating. Patient is to follow-up in [address] Novak if he is still in the transitional care I will come and see him there. After the first 4 days patient may remove dressing and begin showering daily if not showering must have incision clean daily with antibacterial soap and warm water or Betadine and have dressing replaced with an ABD and thigh-high FENG hose. Call with any questions or concerns Additional Instructions: Discharge home with 01/29/2021, [facility] PT/OT/SN. Please Follow Up With: Bryan Novak DO When: 2 weeks Meaningful Use Info Meaningful Use Diagnoses (Choose all that apply): None applicable Discharge Plan Admission Admit Date/Time: 01/08/21 14:22 Primary Reason for Your Visit: Debility. Attending Provider: Melvin Giles Chi Primary Care Provider: Antonio Rangel Consulting Providers: Bryan Novak Instructions Additional Instructions / Restrictions: [facility] Discharge Orders/Prescriptions Prescriptions: New oxycodone 5 mg tablet 5 - 10 mg PO Q4H PRN (Reason: pain) 7 Days RF: 0 oxycodone 5 mg tablet 5 - 10 mg PO Q4H PRN PRN (Reason: Pain Score 6-10) 7 Days Qty: 60 RF: 0 polysaccharide iron complex [Ferrex 150] 150 mg iron Capsule 150 mg PO DAILYCM 30 Days Qty: 30 RF: 0 Eliquis 5 mg Tablet 5 mg PO BID Qty: 0 RF: 0 Continued zinc 50 mg tablet 50 mg PO DAILY RF: 0 biotin [Etienne Biotin] 10,000 mcg capsule 10,000 mcg PO DAILY RF: 0 polyethylene glycol 3350 17 gram/dose powder 17 g PO DAILY RF: 0 magnesium 250 mg tablet 400 mg PO DAILY RF: 0 vitamin B complex Tablet 1 tab PO DAILY RF: 0 calcium carbonate-vitamin D3 600 mg calcium-200 unit capsule 600 mg calcium- 200 unit capsule 1 cap PO BID RF: 0 tamsulosin 0.4 MG capsule 0.4 mg PO DAILY RF: 0 finasteride 5 MG tablet 5 mg PO QHS RF: 0 pantoprazole 40 MG tablet 40 mg PO QODAY RF: 0 lorazepam 0.5 MG tablet 0.5 mg PO TID PRN PRN (Reason: Anxiety) RF: 0 metoprolol tartrate 50 mg Tablet 50 mg PO Q12H RF: 0 furosemide [Lasix] 20 mg Tablet 40 mg PO BID RF: 0 Eliquis 5 mg Tablet 5 mg PO BID RF: 0 sennosides-docusate sodium [Senna-S] 8.6-50 mg Tablet 1 tab PO BID RF: 0 melatonin 3 mg Tablet 3 mg PO QHS RF: 0 amlodipine 5 mg Tablet 5 mg PO DAILY RF: 0 acetaminophen 500 mg Tablet 500 mg PO Q6H PRN (Reason: Pain) RF: 0 simethicone 80 mg Tablet,Chewable 80 mg PO Q4H PRN PRN (Reason: Abdominal Discomfort) RF: 0 rosuvastatin 20 mg Tablet 20 mg PO DAILY RF: 0 gs-suo-IK-Am-Sq-gwfllpi-lutein 0.4-162-18 mg Tablet 1 tab PO DAILY RF: 0 cholecalciferol (vitamin D3) [Vitamin D3] 125 mcg (5,000 unit) Tablet 125 mcg PO DAILY RF: 0 Centrum Men 8 mg iron- 200 mcg-600 mcg Tablet 1 tab PO DAILY RF: 0 venlafaxine 37.5 MG capsule,extended release 24hr 37.5 mg PO DAILY RF: 0 Discontinued docusate sodium 100 mg capsule 100 mg PO DAILY RF: 0 aspirin [Adult Aspirin Regimen] 81 mg tablet,delayed release (DR/EC) 81 mg PO DAILY RF: 0 docusate sodium 50 mg Capsule 50 mg PO DAILY RF: 0 Referrals / Follow Up: Antonio Rangel MD [Primary Care Provider] - Disposition Disposition (needs filled in before D/C Order can be placed): Home Health Service
[2021-01-28 16:00] VITALS: BP 118/61; PULSE 81; RESP 17; TEMP 36.7; O2SAT 95
--- NOTE | 2021-01-28 16:37 | CASEMGMT ---
Social Work Pt lost appeal and is choosing to DC 01/29 as anticipated. W/C transport scheduled for 2 pm. Pt aware. Yessi He, PAY STATION COLLECTOR PROTECTION OFFICER
[2021-01-28 18:26] VITALS: PULSE 81
--- NOTE | 2021-01-28 20:26 | NURSING ---
DR.BORRSO Hoang IN TO LOOK AT PT KNEE TODAY.
[2021-01-28] MEDS: oxyCODONE 5 MG Tablet PO (22:29)
[2021-01-28] MEDS: Venlafaxine XR 37.5 MG Capsule PO (22:30)
[2021-01-28] MEDS: Atorvastatin Calcium 40 MG Tablet PO (22:31)
[2021-01-28] MEDS: MELATONIN 3 MG TABLET PO (22:31)
[2021-01-28] MEDS: Tamsulosin HCl 0.4 MG Capsule PO (22:31)
[2021-01-28] MEDS: Finasteride 5 MG Tablet PO (22:32)
[2021-01-29 00:48] VITALS: PULSE 71; RESP 16
[2021-01-29] MEDS: Polyethylene Glycol 3350 17 GM PACKET PO (08:17)
[2021-01-29] MEDS: Magnesium Chloride 64 MG Delay Rel.Tablet 128 MG PO (08:18)
[2021-01-29] MEDS: Pantoprazole Sodium 40 MG Tablet PO (08:18)
[2021-01-29 08:19] VITALS: BP 121/62; PULSE 79
[2021-01-29] MEDS: oxyCODONE 5 MG Tablet PO (08:19)
[2021-01-29] MEDS: Metoprolol Tartrate 50 MG Tablet PO (08:19)
[2021-01-29] MEDS: amLODIPine 5 MG Tablet PO (08:19)
[2021-01-29] MEDS: APIXABAN 5 MG TABLET PO (08:19)
[2021-01-29] MEDS: Cholecalciferol (VIT D3) 25 MCG TABLET (1,000 UNITS) 125 MCG PO (08:21)
[2021-01-29] MEDS: Mineral Oil/Petrolatum Cr 1.75oz Bottle 1 APPLIC TOPICAL (08:22)
[2021-01-29 08:23] VITALS: BP 121/72; PULSE 79; RESP 16; TEMP 36.1; O2SAT 96
[2021-01-29] MEDS: Calcium Carb/Vitamin D 1 TABLET Tablet PO (09:06)
[2021-01-29] MEDS: Vitamin B Comp W-C Capsule 1 CAP PO (09:06)
[2021-01-29] MEDS: Iron Polysaccharide Complex 150 MG CAPSULE PO (09:06)
[2021-01-29] MEDS: Furosemide 40 MG Tablet PO (09:07)
[2021-01-29] MEDS: Multivitamins,Ther W-Minerals Tablet 1 TABLET PO (09:07)
[2021-01-29 13:00] VITALS: PULSE 77; O2SAT 100
[2021-01-29 14:00] VITALS: BP 114/57; PULSE 77; RESP 18; TEMP 36.7; O2SAT 100
--- NOTE | 2021-01-31 10:45 | NURSING ---
faxed orders to [facility] per Bob request for disharge
== END 2021-01-29 13:40 | disposition home health service (06) | DRG 949 ==
PROVIDERS: Admitting Provider Family Medicine Geriatric Medicine; PCP Family Medicine; Visit Provider Family Medicine Geriatric Medicine
DX: S76.112D Strain of left quadriceps muscle, fascia and tendon, subsequent encounter (principal); L03.116 Cellulitis of left lower limb; I50.32 Chronic diastolic (congestive) heart failure; I11.0 Hypertensive heart disease with heart failure; I48.91 Unspecified atrial fibrillation; N40.0 Benign prostatic hyperplasia without lower urinary tract symptoms; I25.10 Atherosclerotic heart disease of native coronary artery without angina pectoris; K21.9 Gastro-esophageal reflux disease without esophagitis; E66.9 Obesity, unspecified; F32.9 Major depressive disorder, single episode, unspecified; F41.9 Anxiety disorder, unspecified; E78.5 Hyperlipidemia, unspecified; I73.9 Peripheral vascular disease, unspecified; Z95.2 Presence of prosthetic heart valve; Z95.1 Presence of aortocoronary bypass graft; Z68.34 Body mass index [BMI] 34.0-34.9, adult; Z79.899 Other long term (current) drug therapy; Z79.01 Long term (current) use of anticoagulants; Z87.891 Personal history of nicotine dependence; W19.XXXD Unspecified fall, subsequent encounter
CPT/HCPCS: 36415; 80048; 85014; 85018; 85025; 87635; 97110; 97116; 97162; 97165; 97530; 97535; 97802; U0005; U0003

== ENCOUNTER → 2021-01-21 14:48 | Outpatient (CLI) | payer MEDICARE, SELFPAY ==
--- NOTE | 2021-01-21 14:53 | VDLE_ITS ---
Reason For Study: Swelling RIGHT LEFT CFV is compressible, spontaneous, phasic, GSV is normal. competent and demonstrates normal CFV is compressible, spontaneous, phasic, augmentation. competent, and demonstrates normal Procedure augmentation. This is a venous duplex using B-mode, color FV is compressible, spontaneous, phasic, flow and spectral Doppler. competent and demonstrates normal Exam performed in department. augmentation. A preliminary report was called and/or faxed POP V is compressible, spontaneous, phasic, to TCU RN. competent and demonstrates normal augmentation. T/P Trunk is compressible. PTV is compressible. LT PerV is compressible. VL/Venous Duplex US, Unilateral Interpretation Summary Deep veins of the left lower extremity are patent and compressible segmentally. There is no evidence of left lower extremity deep vein thrombosis. Valvular competence appears intac t within the proximal deep venous system on the left . The left great saphenous vein appears patent a nd compressible segmentally. Ordering Physician: Melvin Giles Referring Physician: Antonio Rangel Performed By: Ani Moreland RVT
== END ==
PROVIDERS: PCP Family Medicine; Referring Provider Family Medicine Geriatric Medicine; Visit Provider Family Medicine Geriatric Medicine
DX: R22.42 Localized swelling, mass and lump, left lower limb (principal)
CPT/HCPCS: 93971

== ENCOUNTER → 2021-01-24 13:40 | Outpatient (CLI) | payer MEDICARE, SELFPAY ==
--- NOTE | 2021-01-24 13:57 | MRI_ITS ---
STUDY: MRI LEFT KNEE REASON FOR EXAM: Male, 75 years old. LEFT KNEE PAIN,HEMIARTHROSIS falls, unable to bear weight TECHNIQUE: Standardized fat and water weighted pulse sequences were obtained in all 3 orthogonal planes. 1 COMPARISON: Left knee x-ray dated December 31, 2020 FINDINGS: Mild patchy marrow edema is present in the anterior and central aspect of the medial femoral condyle compatible with a bony contusion. The quadriceps tendon is completely torn and retracted from the patella. The medial patellofemoral ligament and medial joint capsule is completely torn across a 1.23 cm region. Moderate subcutaneous edema is present around the knee joint. A small to moderate size knee joint effusion is also present. The medial patellar retinaculum is partially torn and/from the underlying bone. Normal lateral patellar retinaculum. Minimal lateral patellar subluxation is also present. Normal medial meniscus. Normal hyaline cartilage of the medial femorotibial compartment. Normal medial tibial plateau. Normal medial collateral ligamentous complex (MCL). Normal distal semimembranosus, gracilis and semitendinosus tendons. Normal lateral meniscus. There is diffuse, less than 50% thickness articular cartilage loss of the lateral femorotibial compartment. Normal lateral femoral condyle and tibial plateau. Normal proximal tibiofibular articulation. Normal lateral collateral (fibular) ligament. Normal popliteus tendon. Normal biceps femoris tendon. Normal anterior cruciate ligament (ACL). Normal posterior cruciate ligament (PCL). Small subchondral cyst are present in the patella. Normal hyaline cartilage of the patellofemoral compartment. Normal medial and lateral patellar retinaculum. . Normal patellar tendon. Normal Hoffa''s fat pad. MRI/Lower Ext Joint Only (Routine) IMPRESSION: 1. Mild patchy marrow edema is present in the anterior and central aspect of the medial femoral condyle compatible with a bony contusion. 2. The quadriceps tendon is completely torn and retracted from the patella. 3. The medial patellofemoral ligament and medial joint capsule is completely torn across a 1.23 cm region. 4. Moderate subcutaneous edema is present around the knee joint. 5. Small to moderate size knee joint effusion. The medial patellar retinaculum is partially torn and/from the underlying bone. Electronically Signed: Jeremy Vuong MD at 16:22 EDT , Service support ,
== END ==
PROVIDERS: PCP Family Medicine; Visit Provider Family Medicine Geriatric Medicine
DX: M25.562 Pain in left knee (principal); M25.00 Hemarthrosis, unspecified joint
CPT/HCPCS: 73721

== ENCOUNTER 2021-01-27 12:05 | Day surgery (SDC) | payer MEDICARE, SELFPAY ==
[2021-01-27] VITALS (13 sets, daily range): BP systolic 103–142; BP diastolic 58–83; PULSE 70–88; RESP 14–16; TEMP 35.9–36.7; O2SAT 91–98; BMI 34.5
[2021-01-27] MEDS: Cefazolin 2 GM in 0.9% Normal Saline 100 ML IV (13:03)
[2021-01-27] MEDS: oxyCODONE 5 MG Tablet PO (16:18)
[2021-01-27] MEDS: Cefazolin 1 GM/50 ML BAG IV (16:18)
--- NOTE | 2021-02-03 11:36 | PCM.HP.BLA ---
History and Physical Date of Admission: 01/27/21 MR#: [id number]:JAHAIRA MAYORGARep #:[id number]: [id number]: Bryan Novak DOPCP:Dr. Antonio Rangel MD Status:ADM INLocation: [id number] Assessment & Plan Assessment/Plan (1) Rupture of left quadriceps tendon: QUALIFIERS: Encounter type: initial encounter Qualified Code(s): S76.112A - Strain of left quadriceps muscle, fascia and tendon, initial encounter PLAN: Delayed presentation of left quadriceps rupture date of injury 12/31/2020 Currently on Eliquis for recent cardiac surgery and left lower extremity cellulitis on antibiotics Will need left quadriceps tendon repair discussed this with the patient risk benefits alternatives of surgery versus nonsurgical treatment patient does wish to proceed with quadriceps tendon repair Due to his complicated cardiac recent history we will need to get medical clearance and cardiac clearance prior to proceeding surgically We will need okay from cardiology to stop Eliquis for 24 hours prior to surgery We will discuss with admitting physician about timing of surgery. HPI Consult Data Date of Consult: 01/25/21 HPI Narrative HPI Narrative: JAHAIRA MAYORGA, is a 75 M who is currently admitted to the transitional care unit. Patient had a mechanical fall on 12/31/2020 he presented to the emergency room department and it was felt the patient had hemarthrosis secondary to being on Eliquis and joint effusion. No fracture was visualized. He was unable to actively extend the leg however he was able to walk with a peg leg. Patient had cellulitis in the left lower extremity he has history of chronic lower extremity edema after his cardiac surgery this past November he was transferred to [facility]. He returned to the transitional care he has history of dorsal foot wound that is currently scabbed over on the left. He is currently on antibiotics for left lower extremity cellulitis. He is currently on Eliquis secondary to a recent coronary artery bypass graft and valve replacement surgery. Patient had recent MRI secondary to continued knee pain and joint effusion which showed a full-thickness quadriceps tendon rupture with retraction [facility] Medical History (Updated 01/25/21 @ 13:[address] Bryan Novak, DO) Anal fissure Aortic stenosis Bilateral inguinal hernia without obstruction or gangrene BPH (benign prostatic hyperplasia) Cerebral aneurysm Chronic venous insufficiency Degeneration of intervertebral disc Eosinophilic fasciitis Essential hypertension GERD (gastroesophageal reflux disease) Hyperlipidemia Hyperpigmentation Lipodermatosclerosis Non-healing wound of lower extremity Obesity (BMI 30-39.9) Open wound Peripheral vascular disease of lower extremity with ulceration Rosacea Venous hypertension, chronic, with ulcer and inflammation Venous stasis ulcer Vertigo Home Medications finasteride 5 mg PO QHS 07/08/17 [History Last Taken 07/08/17] lorazepam 0.5 mg PO TID PRN PRN 07/08/17 [History Last Taken Unknown] pantoprazole 40 mg PO QODAY 07/08/17 [History Last Taken 01/08/21] tamsulosin 0.4 mg PO DAILY 07/08/17 [History Last Taken 07/08/17] biotin 10,000 mcg capsule 10,000 mcg PO DAILY cap 11/27/18 [History Last Taken Unknown] calcium carbonate-vitamin D3 600 mg calcium-200 unit capsule 1 cap PO BID cap 11/27/18 [History Last Taken Unknown] docusate sodium 100 mg capsule 100 mg PO DAILY 11/27/18 [History Last Taken Unknown] magnesium 250 mg tablet 400 mg PO DAILY tab 11/27/18 [History Last Taken Unknown] polyethylene glycol 3350 17 gram/dose oral powder 17 g PO DAILY 11/27/18 [History Last Taken Unknown] vitamin B complex 1 tab PO DAILY 11/27/18 [History Last Taken Unknown] zinc 50 mg tablet 50 mg PO DAILY 11/27/18 [History Last Taken Unknown] aspirin 81 mg tablet,delayed release 81 mg PO DAILY 06/12/19 [History Last Taken Unknown] apixaban [Eliquis] 5 mg PO BID 12/31/20 [History Last Taken Unknown] furosemide [Lasix] 40 mg PO BID 12/31/20 [History Last Taken Unknown] metoprolol tartrate 50 mg PO Q12H 12/31/20 [History Last Taken Unknown] acetaminophen 500 mg PO Q6H PRN 01/08/21 [History Last Taken Unknown] amlodipine 5 mg PO DAILY 01/08/21 [History Last Taken Unknown] cholecalciferol (vitamin D3) [Vitamin D3] 125 mcg PO DAILY 01/08/21 [History Last Taken Unknown] docusate sodium [Colace] 50 mg PO DAILY 01/08/21 [History Last Taken Unknown] melatonin 3 mg PO QHS 01/08/21 [History Last Taken Unknown] mv,Ca,faw-lrdt-EV-lycopene [Centrum Men] 1 tab PO DAILY 01/08/21 [History Last Taken Unknown] cy-srx-GJ-Ps-Ru-sbrzgro-lutein [Centrum] 1 tab PO DAILY 01/08/21 [History Last Taken Unknown] rosuvastatin 20 mg PO DAILY 01/08/21 [History Last Taken Unknown] sennosides-docusate sodium [Senna-S] 1 tab PO BID 01/08/21 [History Last Taken Unknown] simethicone 80 mg PO Q4H PRN PRN 01/08/21 [History Last Taken Unknown] venlafaxine 37.5 mg PO DAILY 01/08/21 [History Last Taken Unknown] Allergy/AdvReac Type Severity Reaction Status Date / Time amoxicillin [From Augmentin] AdvReac Abd Verified 12/31/20 16:08 cramps/diarrhea clavulanic acid AdvReac Abd Verified 12/31/20 16:08 [From Augmentin] cramps/diarrhea ibuprofen [From Motrin] AdvReac GI bleed Verified 12/31/20 16:08 Family History Mother Cancer uterine Father Cancer skin Diabetes CAD (coronary artery disease) CABG Surgical History (Updated 01/08/21 @ 16:[address] Melvin Giles MD) History of aortic valve replacement History of basal cell carcinoma (BCC) excision History of colectomy History of excision of pilonidal cyst History of rectal sphincterotomy S/P CABG x 3 Social History (Updated 01/08/21 @ 16:[address] Melvin Gilse MD) household members: spouse Smoking Status: Former smoker how long ago did patient quit smokin years ago alcohol intake: current alcohol intake frequency: 0-2 drinks per day Alcohol type: beer substance use type: does not use Physical Exam Const alert, oriented x3 and no apparent distress General Appearance: cooperative and comfortable Extremity Extremity Narrative: Bilateral lower extremity edema with Herrera wrap edema wraps. He does have a small 2 cm dorsal foot wound on the left without drainage superficial with scabbing. There is no erythema about the knee there is a joint effusion there is no collateral ligament instability he is unable to actively extend the knee and there is a palpable defect at the quadriceps insertion. I can passively extend him with pain Lab / Micro Data Result Diagrams: 01/23/21 06:50 document embedded image 01/23/21 06:50 document embedded image 01/25/21 1348 <Electronically signed by Bryan Novak DO> Cosigner Signature (if applicable): CC: Dr. Bryan Novak DO; Dr. Antonio Rangel MD~Signed ADDENDUM by Dr. Bryan Novak DO on 01/25/21 at 1409 Addendum correction to previous note. requesting 48hrs off eliquis. added on to OR Schedule for 01/27/2021 if medically/cardio cleared 01/25/21 1410<Electronically signed by Bryan Novak DO> Cosigner Signature (if applicable): cc: Dr. Bryan Novak DO; Dr. Antonio Rangel MD ~*Signed I have re-examined the patient. There are no clinical changes since date of exam
== END 2021-01-27 17:31 ==
LOC: SDC 12:05 → AC 12:06
PROVIDERS: PCP Family Medicine; Visit Provider Orthopaedic Surgery
PROC: (CPT 27385; principal; 2021-01-27 13:15)
DX: S76.112A Strain of left quadriceps muscle, fascia and tendon, initial encounter (principal); W19.XXXA Unspecified fall, initial encounter; Y93.9 Activity, unspecified; Y92.9 Unspecified place or not applicable; Y99.9 Unspecified external cause status; L03.116 Cellulitis of left lower limb; R60.0 Localized edema; N40.0 Benign prostatic hyperplasia without lower urinary tract symptoms; I87.2 Venous insufficiency (chronic) (peripheral); K21.9 Gastro-esophageal reflux disease without esophagitis; E78.5 Hyperlipidemia, unspecified; I11.0 Hypertensive heart disease with heart failure; I50.32 Chronic diastolic (congestive) heart failure; I48.91 Unspecified atrial fibrillation; I25.10 Atherosclerotic heart disease of native coronary artery without angina pectoris; F32.9 Major depressive disorder, single episode, unspecified; F41.9 Anxiety disorder, unspecified; I73.9 Peripheral vascular disease, unspecified; E66.9 Obesity, unspecified; Z68.34 Body mass index [BMI] 34.0-34.9, adult; Z79.899 Other long term (current) drug therapy; Z79.01 Long term (current) use of anticoagulants; Z95.1 Presence of aortocoronary bypass graft; Z95.2 Presence of prosthetic heart valve; Z79.82 Long term (current) use of aspirin; Z87.891 Personal history of nicotine dependence
CPT/HCPCS: 27385; C1713; J7120; A4216; J2405

== ENCOUNTER 2021-07-14 14:54 | Outpatient (CLI) | payer MEDICARE, SELFPAY ==
--- NOTE | 2021-07-14 15:01 | ECHOCS_ITS ---
Reason For Study: HISTORY OF VALVE REPLACEMENT Procedure This was a 2D Doppler, Color Flow transthoracic echocardiogram. The study was technically difficult. Exam performed in department. Left Ventricle Normal LV size. Left ventricular systolic function is normal. The estimated ejection fraction is 55 %. Normal diastology for age. No regional wall motion abnormalities noted. Right Ventricle Normal RV size. Normal systolic function. Atria Normal left atrium. Normal right atrium. Mitral Valve Normal mitral valve. Tricuspid Valve Normal tricuspid valve. Aortic Valve Peak aortic valve gradient 30 mmHg. Mean aortic valve gradient 17 mmHg. Bioprosthetic aortic valve. Pulmonic Valve Normal pulmonic valve. Great Vessels Normal aortic root. The pulmonary artery is normal size. Normal inferior vena cava. Pericardium/Pleural No pericardial effusion. Medication 22 gauge I.V. with prn adaptor inserted into right arm. Diluted definity 3ml given slow IV push to enhance endocardial definition. MMode/2D Measurements & Calculations LVIDd: 4.1 cm IVSd: 0.96 cm LVOT diam: 2.0 cm LVIDs: 2.8 cm LVPWd: 1.0 cm RVDd: 4.2 cm FS: 32.2 % LVOT area: 3.3 cm2 Ao root diam: 3.3 cm LAV(MOD-bp): 50.1 ml LVAd ap4: 37.8 cm2 LAV(MOD-bp) Indexed: 21.0 ml/m2 LVLd ap4: 9.6 cm LAV(MOD-sp2): 50.4 ml EDV(MOD-sp4): 123.9 ml LAV(MOD-sp4): 42.0 ml EDV(sp4-el): 126.3 ml LVAs ap4: 20.6 cm2 LVLs ap4: 8.3 cm ESV(MOD-sp4): 43.7 ml ESV(sp4-el): 43.6 ml EF(MOD-sp4): 64.7 % EF(sp4-el): 65.5 % SV(MOD-sp4): 80.1 ml SV(sp4-el): 82.7 ml LA A4 area: 16.8 cm2 LA dimension(2D): 4.0 cm RA A4 area: 17.0 cm2 Time Measurements MV dec time: 0.25 sec Doppler Measurements & Calculations MV E max matt: 93.2 cm/sec Lat Peak E' Amtt: 13.7 cm/sec Med Peak E' Matt: 7.5 cm/sec MV A max matt: 67.7 cm/sec E/E' lat: 6.8 E/E' med: 12.4 MV E/A: 1.4 Ao V2 max: 277.8 cm/sec LV V1 max: 129.6 cm/sec SV(LVOT): 105.3 ml Ao max P.9 mmHg LV V1 max P.7 mmHg Ao V2 mean: 192.4 cm/sec LV V1 mean P.6 mmHg Ao mean P.1 mmHg LV V1 mean: 86.4 cm/sec Ao V2 VTI: 63.6 cm LV V1 VTI: 32.2 cm ADRIANA(I,D): 1.7 cm2 ADRIANA(V,D): 1.5 cm2 PA V2 max: 114.7 cm/sec ECHO/Echo Complete W/ Contrast Interpretation Summary Normal LV size. Left ventricular systolic function is normal. The estimated ejection fraction is 55 %. Mean aortic valve gradient 17 mmHg. Bioprosthetic aortic valve. Contrast injection was performed. Ordering Physician: Joel Pace/Cory Tipton Referring Physician: TALITA STEWART Performed By: Reanna Delatorre RDCS
== END 2021-07-14 23:59 | disposition home or self-care (01) ==
PROVIDERS: PCP Family Medicine; Referring Provider Nurse Practitioner Family; Visit Provider Nurse Practitioner Family
DX: I35.0 Nonrheumatic aortic (valve) stenosis (principal)
CPT/HCPCS: 93306; C8929

== ENCOUNTER 2021-07-15 10:00 | Outpatient (RCR) | payer MEDICARE, SELFPAY ==
--- NOTE | 2021-02-15 11:12 | HP.PTEVAL_ITS ---
Patient's Visit Information JAHAIRA MAYORGA is a 75 year old M referred to Physical Therapy by Dr. Bryan Novak DO with a diagnosis of L quad tendon repair 01/27/21. Date of Evaluation: 02/15/21 Physical Therapist: Oneil Handley PT, ATC - Visit Plan Frequency: 2-3x /Week Duration: 4-6 Weeks Plan: SLR, locked in ext while ambulating, NWB to 90, AA ext ROM ok NO RESISTANCE - Subjective DOS: 01/27/2021. Pt reports he had a L quad tendon rupture repain at that time. Pt notes he tripped over something in his kitchen which resulted in him falling. Pt notes he thought he was OK from the fall until he attempted to stand and noticed something was really wrong. Pt denies any PMHx of quad pain previously. Pt denies any previous falls. Pt ambulates with the use of a WW this date but notes no AD prior to his surgery. Pt reports he is actually doing pretty well this date. Pt reports his pain is minimal. Pt notes his greatest complaint is keeping his knee brace where it belongs. No tingling or numbness in L LE. No sleep difficulty at this time secondary to pain. Pt is retired at this time. 0/10 pain at rest, 5/10 pain with trying to get dressed. Pt has stairs at home, but notes he hasnt attempted to negotiate them at this time. - Pain L knee Pain Intensity (Out of 10): 0 Pain Intensity Range: 5 - Objective Neuro: B LE sensation is WNL to light touch. Girth at joint line: L knee 45 cm, R knee 43 cm. MMT: R LE 4/5 throughout. L knee flex and ext 3-/5. ROM: R knee 0-10-110; L knee 0-15-90 - Balance/Special Test Scores Lower Extremity Functional Score: 17 - Goals Goal 1:: Decrease L knee pain x 50% to aid with ambulation Goal Time Frame: 4-6 Weeks Goal 2:: Increase L knee ROM x 30 degrees to aid with restoring a more normalized gait pattern Goal Time Frame: 4-6 Weeks Goal 3:: Increase L knee strength x 2 grades to aid with stair negotiation Goal Time Frame: 4-6 Weeks Goal 4:: I with HEP Goal Time Frame: 4-6 Weeks - Rehabilitation Potential Physical Therapy Diagnosis: L knee pain, weakness, and limited ROM secondary to quad tendon repair Rehabilitation Potential: Good - Anticipated Interventions Patient/Client Instruction: Educate patient on: Condition, Plan of Care For the Purpose of:: To improve self management Therapeutic Exercise to Include: Strength training, Endurance training, Balance training, Flexibilty training, Gait and locomotor training, Passive ROM, Active ROM, Dynamic Lumbar Stabilization For the Purpose of:: To decrease pain, To increase ROM, To improve muscle performance and motor function Cryotherapy (ice pack, ice massage): Yes For the Purpose of:: To decrease pain Thank you for the opportunity to evaluate your patient. For Medicare and Medicare HMO plans, please review the plan of care and approve it. It will need to be FAXED BACK to us at [phone] for Medicare purposes. For Medicare only, by signing this I certify the plan of care. Please let me know if there are questions or concerns regarding this plan of care. Physician Signature: Date:
--- NOTE | 2021-07-15 10:52 | HP.PTDCSUM ---
It has been my pleasure to treat JAHAIRA MAYORGA referred by Dr. Bryan Novak DO, with the diagnosis of L quad tendon repair 01/27/21 for a total of 32 visit(s). Discharge Date: Please see the following information for a summary of their discharge status. Subjective: Pain is minimal today L knee Pain Intensity (Out of 10): 2 % Improvement: 75 Objective/Function: Pt has 2/10 pain in L LE. L knee MMT: flex= 5/5, ext= 4/5 and painful due to degenerative changes. Pt is I with HEP. L knee ROM: 0-10-118. Rx goals achieved Goal 1:: Decrease L knee pain x 50% to aid with ambulation Goal Progress: Goal Met Goal 2:: Increase L knee ROM x 30 degrees to aid with restoring a more normalized gait pattern Goal 3:: Increase L knee strength x 2 grades to aid with stair negotiation Goal Progress: Goal Met Goal 4:: I with HEP Goal Progress: Goal Met Plan: Discharge to [facility] If there are questions or concerns regarding this patient's physical therapy, please feel free to call me at [phone]. Thank you for the referral of this patient. Sincerely, Oneil Handley, PT, ATC Balance/Gait/Functional tests - Balance/Special Test Scores Lower Extremity Functional Score: 51
== END 2021-07-15 12:15 | disposition home or self-care (01) ==
LOC: PT 10:00
PROVIDERS: PCP Family Medicine; Referring Provider Orthopaedic Surgery; Visit Provider Orthopaedic Surgery
DX: S76.112D Strain of left quadriceps muscle, fascia and tendon, subsequent encounter (principal); X58.XXXD Exposure to other specified factors, subsequent encounter; M62.552 Muscle wasting and atrophy, not elsewhere classified, left thigh; M62.89 Other specified disorders of muscle
CPT/HCPCS: 97110; 97161; 97164; Q9957

== ENCOUNTER → 2022-01-13 | Outpatient (CLI) | payer MEDICARE, SELFPAY ==
[2022-01-13 13:54] LABS: Anion Gap 6 (5-15); BUN 25 mg/dL (7-18); BUN/Creat Ratio 26.1 RATIO (10-20); Calcium,Total 8.9 mg/dL (8.5-10.1); Chloride 104 mmol/L (98-107); Creatinine, Serum 0.96 mg/dL (0.70-1.30); EST Glomerular Filtration Rate 82 mL/min (>60); Est Glom Filt Rate - Afr Amer 99 mL/min (>60); Glucose 100 mg/dL (74-106); Magnesium 2.1 mg/dL (1.6-2.6); Sodium Level 139 mmol/L (136-145)
== END | disposition home or self-care (01) ==
LOC: LAB 12:02
PROVIDERS: PCP Family Medicine; Referring Provider Nurse Practitioner Family; Visit Provider Nurse Practitioner Family
DX: I11.0 Hypertensive heart disease with heart failure (principal); I50.32 Chronic diastolic (congestive) heart failure; I48.0 Paroxysmal atrial fibrillation; I25.10 Atherosclerotic heart disease of native coronary artery without angina pectoris; R60.0 Localized edema; E78.5 Hyperlipidemia, unspecified; Z95.1 Presence of aortocoronary bypass graft
CPT/HCPCS: 36415; 80048; 83735

== ENCOUNTER → 2022-03-22 | Outpatient (CLI) | payer MEDICARE, SELFPAY ==
--- NOTE | 2022-03-22 09:30 | RAD_ITS ---
STUDY: X-RAY CHEST REASON FOR EXAM: Male, 76 years old. Cough. TECHNIQUE: Frontal and lateral views of the chest. COMPARISON: None. FINDINGS: Low volume inspiration with elevation of the left hemidiaphragm. There is no demonstrated pleural abnormality. Cardiomegaly with sternotomy wires and valve replacement changes. Normal mediastinum and nataliia. Normal visualized pulmonary arteries. Aortic tortuosity. Mild osteopenia of the thoracic spine with mild spondylosis. Normal visualized ribs, clavicles, and shoulders. There is no demonstrated abnormality of the visualized soft tissue structures of the upper abdomen. RAD/Chest PA and Lateral IMPRESSION: Cardiomegaly, sternotomy wires and changes of valve replacement and low volume to the lung murray. No focal consolidation or acute abnormality. Electronically Signed: Stephen Saxena, at 10:20 EST ,
== END | disposition home or self-care (01) ==
PROVIDERS: PCP Family Medicine; Visit Provider Otolaryngology
DX: R05.9 Cough, unspecified (principal)
CPT/HCPCS: 71046; 87070; 87205

== ENCOUNTER → 2022-04-28 | Outpatient (CLI) | payer MEDICARE, SELFPAY ==
[2022-04-28 13:18] LABS: Anion Gap 5 (5-15); BUN 17 mg/dL (7-18); BUN/Creat Ratio 17.9 RATIO (10-20); Calcium,Total 8.6 mg/dL (8.5-10.1); Chloride 102 mmol/L (98-107); Creatinine, Serum 0.95 mg/dL (0.70-1.30); EST Glomerular Filtration Rate 83 mL/min (>60); Est Glom Filt Rate - Afr Amer 100 mL/min (>60); Glucose 105 mg/dL (74-106); Sodium Level 138 mmol/L (136-145)
[2022-04-28 13:27] LABS: BNP,B-Type NATRIURETIC PEPTIDE 85.9 pg/mL (0-100)
== END | disposition home or self-care (01) ==
LOC: LAB 11:31
PROVIDERS: PCP Family Medicine; Referring Provider Nurse Practitioner Family; Visit Provider Nurse Practitioner Family
DX: I25.10 Atherosclerotic heart disease of native coronary artery without angina pectoris (principal); I50.32 Chronic diastolic (congestive) heart failure; I48.91 Unspecified atrial fibrillation; R60.0 Localized edema; Z95.1 Presence of aortocoronary bypass graft; Z95.3 Presence of xenogenic heart valve
CPT/HCPCS: 36415; 80048; 83880

== ENCOUNTER 2022-10-26 10:00 | Outpatient (RCR) | payer MEDICARE, OTHER, SELFPAY ==
--- NOTE | 2022-08-16 10:57 | HP.PTEVAL ---
Patient's Visit Information JAHAIRA MAYORGA is a 76 year old M referred to Physical Therapy by Dr. Bryan Novak DO with a diagnosis of B knee OA. Date of Evaluation: 08/16/22 Physical Therapist: Oneil Handley, PT, ATC - Visit Plan Frequency: 2-3x /Week Duration: 4-6 Weeks Plan: B knee stretching and strengthening, core stab ex's, balance and proprio, nustep, and HEP - Subjective Pt reports he has a lot of pain in his R knee. Pt notes he has had chronic pain for several years. Pt notes he has had injections into B knees which has made very little progress. Pt reports he had a ruptured L quad tendon in 2020. Pt reports he is able to perform most daily activities, but notes he is worried that he will soon have to get his R knee replaced and his L knee feels so weak. Pt reports he almost didn't come today secondary to having so much pain. Pt denies tingling or numbness in his LE's at this time. Pt denies sleep difficulty at this time. Pt reports no recent x-rays. Pt reports he has stairs at home that he has to negotiate one step at a time. L knee pain ranges from 0-4/10, R knee pain is constantly at 6/10. - Pain L knee Pain Intensity (Out of 10): 0 Pain Intensity Range: 3 R knee Pain Intensity (Out of 10): 6 Pain Intensity Range: 6 - Objective Neuro: B LE sensation is WNL to light touch. Palpation: pain along joint line of R knee. No obvious deformity at this time. ROM: L knee 0-30-117 degrees; R knee 0-15-110 degrees. MMT: L knee flex= 36, ext= 20; R knee flex= 26, ext= 35 #F. Gait: Pt is able to ambulate 140 feet from waiting room to eval room until needing a rest secondary to pain - Balance/Special Test Scores Lower Extremity Functional Score: 35 - Goals Goal 1:: Decrease B knee pain x 50% to aid with ambulation Goal Time Frame: 4-6 Weeks Goal 2:: Increase B knee strength x 10 #F to aid with stair negotiation Goal Time Frame: 4-6 Weeks Goal 3:: Pt will be able to ambulate greater than 340 feet to aid with community ambulation Goal Time Frame: 4-6 Weeks Goal 4:: I with HEP Goal Time Frame: 4-6 Weeks - Rehabilitation Potential Physical Therapy Diagnosis: Pt has B knee pain, weakness, and limited tolerance for ambulation. Rehabilitation Potential: Good - Anticipated Interventions Patient/Client Instruction: Educate patient on: Condition, Plan of Care For the Purpose of:: To improve self management Therapeutic Exercise to Include: Strength training, Endurance training, Balance training, Flexibilty training, Gait and locomotor training, Dynamic Lumbar Stabilization For the Purpose of:: To decrease pain, To increase ROM, To improve muscle performance and motor function Cryotherapy (ice pack, ice massage): Yes For the Purpose of:: To decrease pain Thank you for the opportunity to evaluate your patient. For Medicare and Medicare HMO plans, please review the plan of care and approve it. It will need to be FAXED BACK to us at [phone] for Medicare purposes. For Medicare only, by signing this I certify the plan of care. Please let me know if there are questions or concerns regarding this plan of care. Physician Signature: Date:
--- NOTE | 2022-09-15 12:04 | HP.PTREVAL ---
Dr. Bryan Novak, DO, It has been my pleasure to treat JAHAIRA MAYORGA over the last 6 visits for B knee OA. Please see the progress note below for an update on the physical therapy plan of care! Subjective: Pt reports no sig changes at this time. Pt notes his L LE still feels so weak Objective/Function: R knee pain ranges from 3-5/10. Gait: Pt is able to ambulate 270 feet until needing to rest. MMT: L knee flex= 33, ext= 13; R knee flex= 30, ext= 37 #F. Pt is progressing at this time but requires more strengthening for functional ambulation Plan Plan: B knee stretching and strengthening, core stab ex's, balance and proprio, nustep, and HEP Balance/Gait/Functional tests - Balance/Special Test Scores Lower Extremity Functional Score: 34 Goals Goal 1:: Decrease B knee pain x 50% to aid with ambulation Goal Time Frame: 4-6 Weeks Goal Progress: Progressing Goal 2:: Increase B knee strength x 10 #F to aid with stair negotiation Goal Time Frame: 4-6 Weeks Goal Progress: Not Progressing Goal 3:: Pt will be able to ambulate greater than 340 feet to aid with community ambulation Goal Time Frame: 4-6 Weeks Goal Progress: Progressing Goal 4:: I with HEP Goal Time Frame: 4-6 Weeks Goal Progress: Progressing Anticipated Interventions Patient/Client Instruction: Educate patient on: Condition, Plan of Care For the Purpose of:: To improve self management Therapeutic Exercise to Include: Strength training, Endurance training, Balance training, Flexibilty training, Gait and locomotor training, Dynamic Lumbar Stabilization For the Purpose of:: To decrease pain, To increase ROM, To improve muscle performance and motor function Cryotherapy (ice pack, ice massage): Yes For the Purpose of:: To decrease pain Please do not hesitate to contact me at [phone] by phone or if you have questions or concerns regarding this new plan of care! Sincerely, Oneil Handley, PT, ATC
--- NOTE | 2022-10-11 14:10 | HP.PTREVAL ---
Dr. Bryan Novak, DO, It has been my pleasure to treat JAHAIRA MAYORGA over the last 10 visits for B knee OA. Please see the progress note below for an update on the physical therapy plan of care! Subjective: Pt reports pain is not too bad todayu Objective/Function: MMT: L knee flex= 25, ext= 24 #F; R knee flex= 25, ext= 29 #F. B knee pain ranges from 2-4/10. Pt is able to ambulate 270 feet until needing to rest secondary to fatigue. Pt is progressing well at this time. Plan Plan: B knee stretching and strengthening, core stab ex's, balance and proprio, nustep, and HEP Balance/Gait/Functional tests - Balance/Special Test Scores Lower Extremity Functional Score: 43 Goals Goal 1:: Decrease B knee pain x 50% to aid with ambulation Goal Time Frame: 4-6 Weeks Goal Progress: Progressing Goal 2:: Increase B knee strength x 10 #F to aid with stair negotiation Goal Time Frame: 4-6 Weeks Goal Progress: Not Progressing Goal 3:: Pt will be able to ambulate greater than 340 feet to aid with community ambulation Goal Time Frame: 4-6 Weeks Goal Progress: Progressing Goal 4:: I with HEP Goal Time Frame: 4-6 Weeks Goal Progress: Progressing Anticipated Interventions Patient/Client Instruction: Educate patient on: Condition, Plan of Care For the Purpose of:: To improve self management Therapeutic Exercise to Include: Strength training, Endurance training, Balance training, Flexibilty training, Gait and locomotor training, Dynamic Lumbar Stabilization For the Purpose of:: To decrease pain, To increase ROM, To improve muscle performance and motor function Cryotherapy (ice pack, ice massage): Yes For the Purpose of:: To decrease pain Please do not hesitate to contact me at [phone] by phone or if you have questions or concerns regarding this new plan of care! Sincerely, Oneil Handley, PT, ATC
--- NOTE | 2022-10-26 10:49 | HP.PTDCSUM ---
It has been my pleasure to treat JAHAIRA MAYORGA referred by Dr. Bryan Novak DO, with the diagnosis of B knee OA for a total of 13 visit(s). Discharge Date: Please see the following information for a summary of their discharge status. Subjective: Pt reports he feels ready to be done with PT L knee Pain Intensity (Out of 10): 0 R knee Pain Intensity (Out of 10): 2 % Improvement: 40 Objective/Function: R knee pain is 2/10, L knee pain is 0/10. MMT: R knee flex= 30, ext= 34 #F; L knee flex= 34, ext= 32 #F. Pt is able to ambulate 340 feet until needing to rest secondary to fatigue. Pt is I with HEP. Rx goals achieved Goal 1:: Decrease B knee pain x 50% to aid with ambulation Goal Progress: Goal Met Goal 2:: Increase B knee strength x 10 #F to aid with stair negotiation Goal Progress: Goal Met Goal 3:: Pt will be able to ambulate greater than 340 feet to aid with community ambulation Goal Progress: Goal Met Goal 4:: I with HEP Goal Progress: Goal Met Plan: Discharge to HEP If there are questions or concerns regarding this patient's physical therapy, please feel free to call me at [phone]. Thank you for the referral of this patient. Sincerely, Oneil Handley, PT, ATC Balance/Gait/Functional tests - Balance/Special Test Scores Lower Extremity Functional Score: 43
== END 2022-10-26 12:38 | disposition home or self-care (01) ==
LOC: PT 10:00
PROVIDERS: PCP Family Medicine; Referring Provider Orthopaedic Surgery; Visit Provider Orthopaedic Surgery
DX: M17.0 Bilateral primary osteoarthritis of knee (principal); R29.898 Other symptoms and signs involving the musculoskeletal system
CPT/HCPCS: 97110; 97161; 97164

== ENCOUNTER 2023-01-03 10:30 | Inpatient (IN) | payer MEDICARE, OTHER, SELFPAY ==
[2023-01-03] VITALS (15 sets, daily range): BP systolic 103–155; BP diastolic 49–125; PULSE 69–96; RESP 16–24; TEMP 36.3–37.2; O2SAT 84–98; BMI 38.0
--- NOTE | 2023-01-03 10:58 | ED.VIS.DYS ---
HPI History of Present Illness Chief Complaint: Cough Informant: patient Onset/Context/Timing Onset: Yesterday Context: gradual Timing: Continuous Worsened by: Nothing Relieved by: Nothing Associated Symptoms cough, fever and yellow sputum; Negative for rhinorrhea, post nasal drip, ear pain, sore throat, chills, sweats, clear sputum, white sputum or green sputum Chest Pain: Positive for None Narrative Narrative: Patient presents with shortness of breath that has been getting worse since yesterday. Patient states it is gradually getting worse. Patient states she is coughing up some yellow sputum. Patient admits to a fever of 100 at home this morning. Patient denies any chills. Patient denies any sore throat or rhinorrhea. Patient denies any chest pain. Patient states he did have recent travel to [place]. Patient also states that his has been ill recently. PE Risk Factors: Positive for Cancer and Recent travel; Negative for OCP + Smoking + > 35, Prior DVT or PE, Recent immobilization or Recent surgery PFSH [facility] Medical History Alcohol use Anal fissure Anemia Anxiety Atherosclerosis of coronary artery without angina pectoris Back pain Benign prostate hyperplasia Bilateral edema of lower extremity Bilateral inguinal hernia without obstruction or gangrene Bilateral lower leg cellulitis Bladder disease BPH (benign prostatic hyperplasia) Cancer Cardiology follow-up encounter Cerebral aneurysm Chronic heart failure with preserved ejection fraction (HFpEF) Chronic venous insufficiency Debility Degeneration of intervertebral disc Depression Eosinophilic fasciitis Eosinophilic fasciitis Essential hypertension Former smoker Gastric reflux Gastroesophageal reflux disease Hemarthrosis of knee, left History of atrial fibrillation History of echocardiogram History of GI bleed History of hiatal hernia History of IBS History of stress test History of ulceration Hx of connective tissue disease Hyperlipidemia Hyperpigmentation Hypertension Inability to ambulate due to multiple joints Lateral meniscus tear Leg cramps Lipodermatosclerosis Migraine headache Non-healing wound of lower extremity Nonrheumatic aortic (valve) stenosis Nontraumatic rupture of tendon of right quadriceps muscle Obesity (BMI 30-39.9) Open wound Osteoarthritis of right knee Osteoarthritis of right knee Paroxysmal atrial fibrillation Peripheral vascular disease of lower extremity with ulceration Prostate disease Quadriceps tendon rupture Right knee pain Right knee pain Rosacea Seizures Shortness of breath on exertion Venous hypertension, chronic, with ulcer and inflammation Venous stasis dermatitis Venous stasis ulcer Vertigo Wears glasses Wears partial dentures Home Medications finasteride 5 mg tablet 5 mg PO QHS urinary retention 07/08/17 [History Last Taken 07/08/17] lorazepam 0.5 mg tablet 0.5 mg PO TID PRN PRN Anxiety 07/08/17 [History Last Taken Unknown] tamsulosin 0.4 mg capsule 0.4 mg PO DAILY retention 07/08/17 [History Last Taken 07/08/17] biotin 10,000 mcg capsule (Etienne Biotin) 10,000 mcg PO DAILY Supplement 11/27/18 [History Last Taken Unknown] vitamin B complex 1 tab PO DAILY Supplement 11/27/18 [History Last Taken Unknown] zinc 50 mg tablet 50 mg PO DAILY Supplement 11/27/18 [History Last Taken Unknown] metoprolol tartrate 50 mg tablet 50 mg PO Q12H BP 12/31/20 [History Last Taken Unknown] acetaminophen 500 mg tablet 500 mg PO Q6H PRN Pain 01/08/21 [History Last Taken Unknown] amlodipine 5 mg tablet 5 mg PO DAILY BP 01/08/21 [History Last Taken Unknown] cholecalciferol (vitamin D3) 125 mcg (5,000 unit) tablet (Vitamin D3) 125 mcg PO DAILY Supplement 01/08/21 [History Last Taken Unknown] melatonin 3 mg tablet 3 mg PO QHS Insomnia 01/08/21 [History Last Taken Unknown] multivit,Ca,min-iron 8 mg-folic acid 200 mcg-lycopene 600 mcg tablet (Centrum Men) 1 tab PO DAILY SUpplment 01/08/21 [History Last Taken Unknown] venlafaxine 37.5 mg capsule,extended release 24 hr 37.5 mg PO DAILY Antidepressant 01/08/21 [History Last Taken Unknown] aspirin 81 mg tablet,delayed release (Adult Aspirin Regimen) 81 mg PO DAILY 06/06/21 [History Last Taken Unknown] lactobacillus combination no.9 4 billion cell capsule (Adult 50 Plus Probiotic) 8,000 mmu cells PO DAILY 06/06/21 [History Last Taken Unknown] vitamin K2 100 mcg capsule 100 mcg PO DAILY 06/06/21 [History Last Taken Unknown] clindamycin HCl 300 mg capsule 600 mg (2 x 300 mg) PO .COMPLEX #2 caps 09/28/21 [Rx Last Taken Unknown] pantoprazole 40 mg tablet,delayed release 40 mg PO DAILY 11/30/21 [History Last Taken Unknown] polyethylene glycol 3350 17 gram/dose oral powder 17 g PO DAILY PRN Constipation 11/30/21 [History Last Taken Unknown] psyllium husk 3.4 gram/5.4 gram oral powder (Metamucil) 1 tsp PO DAILY PRN 11/30/21 [History Last Taken Unknown] rosuvastatin 20 mg tablet 20 mg PO DAILY Antidepressant #90 tabs 01/25/22 [Rx Last Taken Unknown] calcium carbonate 600 mg-vitamin D3 5 mcg (200 unit) capsule 1 cap PO DAILY SUpplement 06/08/22 [History Last Taken Unknown] dicyclomine 20 mg tablet 20 mg PO BID PRN 06/08/22 [History Last Taken Unknown] mometasone-formoterol HFA 100 mcg-5 mcg/actuation aerosol inhaler (Dulera) 2 puff inhalation BID 06/08/22 [History Last Taken Unknown] furosemide 40 mg tablet 40 mg PO DAILY dose increased from 20 mg to 40 mg daily #90 tabs 10/17/22 [Rx Last Taken Unknown] Allergy/AdvReac Type Severity Reaction Status Date / Time amoxicillin [From Augmentin] AdvReac Abd Verified 01/03/23 10:34 cramps/diarrhea clavulanic acid AdvReac Abd Verified 01/03/23 10:34 [From Augmentin] cramps/diarrhea hydromorphone [From Dilaudid] AdvReac Vomiting Verified 01/03/23 10:34 ibuprofen [From Motrin] AdvReac GI bleed Verified 01/03/23 10:34 Family History Mother Cancer uterine Father Cancer skin Diabetes CAD (coronary artery disease) CABG Surgical History H/O coronary artery bypass surgery (11/30/20) History of aortic valve replacement with bioprosthetic valve (11/30/20) History of basal cell carcinoma (BCC) excision History of cardiac catheterization History of colectomy History of excision of pilonidal cyst History of rectal sphincterotomy Social History household members: spouse Smoking Status: Former smoker how long ago did patient quit smokin years ago alcohol intake: current alcohol intake frequency: 0-2 drinks per day Alcohol type: beer substance use type: does not use caffeine: Yes Type: carbonated beverages Number of servings: 1 ROS ROS ED Constitutional Constitutional ED: Reports fever(s); Denies chills Eyes Eyes: Denies blurry vision or change in vision ENT ENT ED: Denies rhinorrhea or sore throat Cardiovascular Cardiovascular: Denies chest pain or palpitations Respiratory/Chest Respiratory/Chest: Reports cough and dyspnea Gastrointestinal Gastrointestinal: Denies nausea or vomiting Genitourinary Genitourinary ED: Denies dysuria or hematuria Musculoskeletal Musculoskeletal: Denies back pain or neck pain Integumentary Denies abscess or rash Neurologic Neurologic: Denies headache(s) or weakness Allergic/Immunologic Allergic/Immunologic ED: Denies mouth swelling or urticaria EXAM Physical Exam Const Vital Signs: 01/03/23 10:31 01/03/23 10:53 01/03/23 10:53 Temperature 97.4 F L 98.8 F 98.8 F Temperature Source Temporal Oral Oral Pulse Rate 96 88 86 Respiratory Rate 18 20 H 20 H Respiratory Effort Respiratory Depth Respiratory Pattern Blood Pressure 147/64 H 146/125 H 146/125 H Blood Pressure Mean 91 132 132 Pulse Ox 88 93 93 Oxygen Delivery Method Room Air Nasal Cannula Nasal Cannula Oxygen Flow Rate (L/min) 3 3 01/03/23 10:53 01/03/23 11:07 01/03/23 12:49 Temperature Temperature Source Pulse Rate 69 Respiratory Rate 19 H Respiratory Effort Short of Breath Respiratory Depth Normal Respiratory Pattern Tachypnea Blood Pressure 147/67 H Blood Pressure Mean 93 Pulse Ox 92 Oxygen Delivery Method Nasal Cannula Nasal Cannula Nasal Cannula Oxygen Flow Rate (L/min) 3 3 3 01/03/23 12:40 01/03/23 12:50 01/03/23 13:10 Temperature 98.1 F 97.7 F L Temperature Source Temporal Axillary Pulse Rate 69 71 Respiratory Rate 20 H 24 H Respiratory Effort Respiratory Depth Respiratory Pattern Blood Pressure 147/67 H 140/66 H Blood Pressure Mean 93 90 Pulse Ox 84 92 94 Oxygen Delivery Method Room Air Nasal Cannula Nasal Cannula Oxygen Flow Rate (L/min) 3 3 Positive well nourished, well developed and obese General Appearance ED: well developed and NAD Nutritional Appearance: obese HEENT Reports moist mucous membranes Neck supple and no JVD Resp normal respiratory effort Auscultation: rhonchi throughout Cardio regular rate and regular rhythm GI normal to inspection, nondistended, normoactive bowel sounds and non-tender Palpation: soft Extremity normal to inspection General Extremety ED: Negative for edema or tenderness General Extremity: Negative for edema Neuro oriented x3, CN's II-XII intact bilaterally and no sensory deficits noted Sensorium / Orientation: alert Motor Exam: strength 5/5 throughout Psych mental status grossly normal Skin no rashes or lesions noted MDM MDM MDM Narrative Medical decision making narrative: Differential diagnosis includes pneumonia, pneumothorax, pulmonary embolism, cardiac dysrhythmia, cardiac ischemia, and viral bronchitis. Chest CTA will be obtained to assess for pneumonia and pulmonary embolism. EKG will be obtained to assess for cardiac dysrhythmia and cardiac ischemia. CBC will be obtained to assess for leukocytosis and anemia. Basic metabolic profile will be obtained to assess for electrolyte abnormality and renal function. High-sensitivity troponin will be obtained to assess for cardiac ischemia. Lab Data Attestation: I reviewed the patient's lab results. Lab results narrative: CBC was reviewed and was within normal limits. Basic metabolic profile was reviewed and was essentially within normal limits. High-sensitivity troponin was reviewed and was normal at 13. Labs: Laboratory Results - last 24 hr 01/03/23 10:45 WBC 6.3 RBC 4.43 L Hgb 13.2 Hct 40.2 MCV 90.7 MCH 29.8 MCHC 32.8 RDW Std Deviation 48.0 H RDW Coeff of Devorah 14.3 Plt Count 141 L MPV 10.0 Immature Gran % (Auto) 0.500 Neut % (Auto) 84.6 H Lymph % (Auto) 5.3 L Winn % (Auto) 7.8 Eos % (Auto) 1.3 Baso % (Auto) 0.5 Absolute Neuts (auto) 5.3 Absolute Lymphs (auto) 0.33 L Nucleated RBC % 0 Differential Comment COMMENT Sodium 137 Potassium 3.8 Chloride 103 Carbon Dioxide 27.0 Anion Gap 7 BUN 19 H Creatinine 0.97 Estim Creat Clear Calc 72.22 Est GFR (MDRD) Af Amer 97 Est GFR (MDRD) Non-Af 80 BUN/Creatinine Ratio 19.5 Glucose 139 H Calcium 8.5 Troponin I High Sens 13 Radiography Diagnostic Testing: Clinical Impression(s) from Imaging Studies Chest CTA 01/03/23 11:57 IMPRESSION: No demonstrated pulmonary embolism or arterial dissection. Scattered groundglass opacities within the right upper lobe, a nonspecific finding may be secondary to edema and/or an infectious process. Atherosclerosis. Electronically Signed: Shannon Beasley MD at 12:45 EDT , CTA of the chest was obtained. There is no evidence of pulmonary embolism or aortic dissection. There are scattered groundglass opacities within the right upper lobe which may be edema and/or infectious process. This was interpreted by the radiologist and was also independently reviewed by myself. EKG Initial EKG: Attestation: I personally reviewed and interpreted this EKG as follows: Interpretation: Sinus Rhythm (With first-degree AV block with a rate of 81) and No Acute Injury Pattern Comments: EKG was obtained. On my independent interpretation, it showed a normal sinus rhythm with a first-degree AV block with a rate of 81. ID interval was prolonged at 328 ms. QRS interval was normal at 100 ms. QTc interval was normal at 439 ms. [place] was normal. There are no acute ST or T wave changes. Prior EKG tracings: available for review Prior: Unchanged (01/26/2021) Management Discussion w/another healthcare provider: Hospitalist Treatment and Re-Evaluation :: Patient was given aspirin here initially. Because of the cough, fever, and respiratory symptoms the groundglass opacities on the CT of the chest are likely to be from pneumonia. Blood cultures were obtained. Sputum culture was ordered. Patient was started on Rocephin and Zithromax. Since patient was hypoxic on room air upon arrival, I recommended admission to the hospital. Case was discussed with the hospitalist. He will admit the patient for observation. Patient and family understood and was agreeable with the plan. All questions were answered. Discharge Plan Triage Chief Complaint: Cough ED Provider: Tray Cortez Dx/Rx/DC Orders Clinical Impression: Hypoxia, Pneumonia Prescriptions: No Action zinc 50 mg tablet 50 mg PO DAILY biotin [Etienne Biotin] 10,000 mcg capsule 10,000 mcg PO DAILY vitamin B complex Tablet 1 tab PO DAILY polyethylene glycol 3350 17 gram/dose powder 17 g PO DAILY PRN (Reason: Constipation) calcium carbonate-vitamin D3 600 mg calcium-200 unit capsule 600 mg-5 mcg (200 unit) capsule 1 cap PO DAILY Adult 50 Plus Probiotic 4 billion cell capsule 8,000 mmu cells PO DAILY Rx Instructions: administer with a meal aspirin [Adult Aspirin Regimen] 81 mg tablet,delayed release (DR/EC) 81 mg PO DAILY vitamin K2 100 mcg capsule 100 mcg PO DAILY Metamucil 3.4 gram/5.4 gram powder 1 tsp PO DAILY PRN Rx Instructions: mix into at least 4 oz water or juice before administering dicyclomine 20 mg tablet 20 mg PO BID PRN pantoprazole 40 mg tablet,delayed release (DR/EC) 40 mg PO DAILY Dulera 100-5 mcg/actuation HFA aerosol inhaler 2 puff inhalation BID tamsulosin 0.4 MG capsule 0.4 mg PO DAILY Patient Comments: urinary retention finasteride 5 MG tablet 5 mg PO QHS Patient Comments: urinary retention lorazepam 0.5 MG tablet 0.5 mg PO TID PRN PRN (Reason: Anxiety) Patient Comments: anxiety metoprolol tartrate 50 mg Tablet 50 mg PO Q12H melatonin 3 mg Tablet 3 mg PO QHS amlodipine 5 mg Tablet 5 mg PO DAILY acetaminophen 500 mg Tablet 500 mg PO Q6H PRN (Reason: Pain) cholecalciferol (vitamin D3) [Vitamin D3] 125 mcg (5,000 unit) Tablet 125 mcg PO DAILY Centrum Men 8 mg iron- 200 mcg-600 mcg Tablet 1 tab PO DAILY venlafaxine 37.5 MG capsule,extended release 24hr 37.5 mg PO DAILY clindamycin HCl 300 mg capsule 600 mg PO .COMPLEX Qty: 2 3RF Rx Instructions: 600 mg PO 1 hour prior to dental procedure; rosuvastatin 20 mg tablet 20 mg PO DAILY Qty: 90 3RF furosemide 40 mg tablet 40 mg PO DAILY Qty: 90 3RF Primary Care Provider: Antonio Rangel Referrals: Antonio Rangel MD [Primary Care Provider] - Disposition Disposition: Acute Care Hospital [facility]
[2023-01-03] MEDS: Aspirin 81 MG TAB.CHEW 324 MG PO (11:11)
[2023-01-03 11:15] LABS: Absolute Lymphocyte Count 0.33 X10^3/uL (0.83-4.51); Absolute Neutrophil Count 5.3 X10^3/uL (2.0-7.7); Basophil# 0.03 X10^3/uL; Basophil% 0.5 % (0-1); Eosinophil# 0.08 X10^3/uL; Eosinophils% 1.3 % (0-5); Hematocrit 40.2 % (40-54); Hemoglobin 13.2 g/dL (13.0-16.5); Lymphocyte # 0.33 X10^3/ul (0.83-4.51); Lymphocyte % 5.3 % (19-41); Mean Corp Hgb Conc 32.8 g/dL (32-36); Mean Corpuscular Hgb 29.8 pg (27.0-32.0); Mean Corpuscular Volume 90.7 fL (80-94); Monocyte# 0.49 X10^3/uL; Monocyte% 7.8 % (0-10); NRBC Flagged by Analyzer 0 % (0-5); Neutrophil # 5.29 X10^3/uL (2.7-7.7); Neutrophil % 84.6 % (47-70); POSITIVE DIFFERENTIAL YES; Platelet Count 141 K/mm3 (150-450); RBC Distribution Width CV 14.3 % (11.6-14.6); Red Blood Count 4.43 M/mm3 (4.6-6.2); White Blood Count 6.3 K/mm3 (4.4-11.0)
[2023-01-03 11:17] LABS: Differential Indicated SCAN CRITERIA MET
[2023-01-03 11:31] LABS: Anion Gap 7 (5-15); BUN 19 mg/dL (7-18); BUN/Creat Ratio 19.5 RATIO (10-20); Calcium,Total 8.5 mg/dL (8.5-10.1); Chloride 103 mmol/L (98-107); Creatinine, Serum 0.97 mg/dL (0.70-1.30); EST Glomerular Filtration Rate 80 mL/min (>60); Est Glom Filt Rate - Afr Amer 97 mL/min (>60); Estimated Creatinine Clearance 72.22 ml/min; Glucose 139 mg/dL (74-106); Potassium 3.8 mmol/L (3.5-5.1); Sodium Level 137 mmol/L (136-145); Troponin-I HS (w/2H Reflex) 13 pg/mL (3.0-78.0)
--- NOTE | 2023-01-03 11:57 | CT_ITS ---
STUDY: CTA CHEST REASON FOR EXAM: Male, 77 years old. Pulmonary embolism RADIATION DOSAGE (If Supplied By Facility): CTDIvol = ( 15.04 ) mGy, DLP = ( 630.88 ) mGycm TECHNIQUE: The examination was performed with the intravenous administration of IV 100mL [id number]-370. Post-processing of the angiographic images was performed, with multiplanar reformation and 3D reconstruction. Individualized dose optimization techniques were used for this CT. COMPARISON: Prior study dated: CT of the abdomen and pelvis dated July 20, 2017 FINDINGS: Motion artifact degrades anatomic detail. There are scattered right upper lobe groundglass opacities. There is minimal left apical and bibasilar scarring and/or atelectasis. Normal enhancement of the main pulmonary artery and right and left pulmonary arteries. Normal enhancement of the bilateral peripheral pulmonary arteries. There is no demonstrated pulmonary embolism. There is atherosclerotic calcification of the aortic arch and descending thoracic aorta. There is no demonstrated aortic dissection.. There are calcifications of the coronary arteries. Sternal cerclage wires are present from a prior sternotomy. There is a prosthetic aortic valve in place. Normal mediastinum. Normal hilar regions. Normal visualized trachea and bronchi. Normal chest wall structures. There are degenerative changes of thoracic spine. Normal visualized upper abdomen. CT/CTA Chest W/WO Contrast IMPRESSION: No demonstrated pulmonary embolism or arterial dissection. Scattered groundglass opacities within the right upper lobe, a nonspecific finding may be secondary to edema and/or an infectious process. Atherosclerosis. Electronically Signed: Shannon Beasley MD at 12:45 EDT ,
[2023-01-03 13:10] LABS: Reflex Troponin-HS? (from REC) Y
--- NOTE | 2023-01-03 13:25 | PCM.HP.STD ---
HPI - General General Date of Admission: 01/03/23 Date of Service: 01/03/23 Chief Complaint: Community-acquired pneumonia HPI Narrative JAHAIRA MAYORGA is a 77 M with history of CAD s/p CABG (2020), surgical aortic valve replacement (2020), hypertension, asthma, BPH and anxiety/depression who presented to [facility] ED on 01/03/2023 with worsening shortness of breath and productive cough. Patient seen at bedside, present. Patient sitting up in bed, satting well on 2 L nasal cannula, conversing normally, in no acute distress. He does not exhibit any increased work of breathing. He does appear mildly fatigued. Patient states that his cough with yellowish sputum started yesterday at home. Notably, his was in the ED on Sunday with the same issue. Patient does have a history of asthma and feels somewhat wheezy at this point. He denies any chest pain or discomfort. He denies any fevers or chills. His main concern is that he is quite fatigued and has productive cough. He denies any other pain or discomfort at this time. Labs in the ED showed a normal WBC count of 6, normal electrolytes, normal troponin. CT PA showed no evidence of PE, did show scattered groundglass opacities within the right upper lobe. EKG was benign. [facility] Medical History Alcohol use Anal fissure Anemia Anxiety Atherosclerosis of coronary artery without angina pectoris Back pain Benign prostate hyperplasia Bilateral edema of lower extremity Bilateral inguinal hernia without obstruction or gangrene Bilateral lower leg cellulitis Bladder disease BPH (benign prostatic hyperplasia) Cancer Cardiology follow-up encounter Cerebral aneurysm Chronic heart failure with preserved ejection fraction (HFpEF) Chronic venous insufficiency Debility Degeneration of intervertebral disc Depression Eosinophilic fasciitis Eosinophilic fasciitis Essential hypertension Former smoker Gastric reflux Gastroesophageal reflux disease Hemarthrosis of knee, left History of atrial fibrillation History of echocardiogram History of GI bleed History of hiatal hernia History of IBS History of stress test History of ulceration Hx of connective tissue disease Hyperlipidemia Hyperpigmentation Hypertension Inability to ambulate due to multiple joints Lateral meniscus tear Leg cramps Lipodermatosclerosis Migraine headache Non-healing wound of lower extremity Nonrheumatic aortic (valve) stenosis Nontraumatic rupture of tendon of right quadriceps muscle Obesity (BMI 30-39.9) Open wound Osteoarthritis of right knee Osteoarthritis of right knee Paroxysmal atrial fibrillation Peripheral vascular disease of lower extremity with ulceration Prostate disease Quadriceps tendon rupture Right knee pain Right knee pain Rosacea Seizures Shortness of breath on exertion Venous hypertension, chronic, with ulcer and inflammation Venous stasis dermatitis Venous stasis ulcer Vertigo Wears glasses Wears partial dentures Home Medications finasteride 5 mg tablet 5 mg PO QHS URINARY RETENTION 07/08/17 [History Last Taken 01/02/23] lorazepam 0.5 mg tablet 0.5 mg PO TID PRN ANXIETY 07/08/17 [History Last Taken Unknown] tamsulosin 0.4 mg capsule 0.4 mg PO DAILY PROSTATE 07/08/17 [History Last Taken 01/03/23] biotin 10,000 mcg capsule (Etienne Biotin) 10,000 mcg PO DAILY SUPPLEMENT 11/27/18 [History Last Taken 01/03/23] vitamin B complex 1 tab PO DAILY SUPPLEMENT 11/27/18 [History Last Taken 01/03/23] zinc 50 mg tablet 50 mg PO DAILY SUPPLEMENT 11/27/18 [History Last Taken 01/03/23] metoprolol tartrate 50 mg tablet 50 mg PO BID BLOOD PRESSURE 12/31/20 [History Last Taken 01/03/23] acetaminophen 500 mg tablet 500 mg PO Q6H PRN Pain 01/08/21 [History Last Taken Unknown] amlodipine 5 mg tablet 5 mg PO DAILY BLOOD PRESSURE 01/08/21 [History Last Taken 01/03/23] cholecalciferol (vitamin D3) 125 mcg (5,000 unit) tablet (Vitamin D3) 125 mcg PO DAILY SUPPLEMENT 01/08/21 [History Last Taken 01/03/23] multivit,Ca,min-iron 8 mg-folic acid 200 mcg-lycopene 600 mcg tablet (Centrum Men) 1 tab PO DAILY SUPPLEMENT 01/08/21 [History Last Taken 01/03/23] venlafaxine 37.5 mg capsule,extended release 24 hr 37.5 mg PO DAILY ANTIDEPRESSANT 01/08/21 [History Last Taken 01/03/23] aspirin 81 mg tablet,delayed release (Adult Aspirin Regimen) 81 mg PO DAILY HEART HEALTH 06/06/21 [History Last Taken 01/03/23] lactobacillus combination no.9 4 billion cell capsule (Adult 50 Plus Probiotic) 8,000 mmu cells PO DAILY GUT HEALTH 06/06/21 [History Last Taken 01/03/23] vitamin K2 100 mcg capsule 100 mcg PO DAILY SUPPLEMENT 06/06/21 [History Last Taken 01/03/23] polyethylene glycol 3350 17 gram/dose oral powder 17 g PO DAILY PRN CONSTIPATION 11/30/21 [History Last Taken Unknown] psyllium husk 3.4 gram/5.4 gram oral powder (Metamucil) 1 tsp PO DAILY PRN CONSTIPATON 11/30/21 [History Last Taken Unknown] rosuvastatin 20 mg tablet 20 mg PO DAILY CHOLESTEROL #90 tabs 01/25/22 [Rx Last Taken 01/03/23] calcium carbonate 600 mg-vitamin D3 5 mcg (200 unit) capsule 1 cap PO DAILY SUPPLEMENT 06/08/22 [History Last Taken 01/03/23] dicyclomine 20 mg tablet 20 mg PO BID PRN IRRITABLE BOWELS 06/08/22 [History Last Taken Unknown] mometasone-formoterol HFA 100 mcg-5 mcg/actuation aerosol inhaler (Dulera) 2 puff inhalation BID ASTHMA 06/08/22 [History Last Taken 01/03/23] furosemide 40 mg tablet 40 mg PO DAILY FLUID #90 tabs 10/17/22 [Rx Last Taken 01/03/23] Allergy/AdvReac Type Severity Reaction Status Date / Time amoxicillin [From Augmentin] AdvReac Abd Verified 01/03/23 10:34 cramps/diarrhea clavulanic acid AdvReac Abd Verified 01/03/23 10:34 [From Augmentin] cramps/diarrhea hydromorphone [From Dilaudid] AdvReac Vomiting Verified 01/03/23 10:34 ibuprofen [From Motrin] AdvReac GI bleed Verified 01/03/23 10:34 Family History Mother Cancer uterine Father Cancer skin Diabetes CAD (coronary artery disease) CABG Surgical History H/O coronary artery bypass surgery (11/30/20) History of aortic valve replacement with bioprosthetic valve (11/30/20) History of basal cell carcinoma (BCC) excision History of cardiac catheterization History of colectomy History of excision of pilonidal cyst History of rectal sphincterotomy Social History household members: spouse Smoking Status: Former smoker how long ago did patient quit smokin years ago alcohol intake: current alcohol intake frequency: 0-2 drinks per day Alcohol type: beer substance use type: does not use caffeine: Yes Type: carbonated beverages Number of servings: 1 ROS Constitutional Constitutional: Reports fatigue and malaise; Denies chills or fever(s) Eyes Eyes: Denies change in vision Cardiovascular Cardiovascular: Denies chest pain, dyspnea on exertion, edema, lightheadedness or palpitations Respiratory/Chest Respiratory/Chest: Reports dyspnea, productive cough and wheezing Gastrointestinal Gastrointestinal: Denies abdominal pain Genitourinary Genitourinary: Denies dysuria Vital Signs Vital Signs Vital Signs: 01/03/23 10:31 01/03/23 10:53 01/03/23 10:53 Temperature 97.4 F L 98.8 F 98.8 F Temperature Source Temporal Oral Oral Pulse Rate 96 88 86 Respiratory Rate 18 20 H 20 H Respiratory Effort Respiratory Depth Respiratory Pattern Blood Pressure 147/64 H 146/125 H 146/125 H Blood Pressure Mean 91 132 132 Pulse Ox 88 93 93 Oxygen Delivery Method Room Air Nasal Cannula Nasal Cannula Oxygen Flow Rate (L/min) 3 3 01/03/23 10:53 01/03/23 11:07 01/03/23 12:49 Temperature Temperature Source Pulse Rate 69 Respiratory Rate 19 H Respiratory Effort Short of Breath Respiratory Depth Normal Respiratory Pattern Tachypnea Blood Pressure 147/67 H Blood Pressure Mean 93 Pulse Ox 92 Oxygen Delivery Method Nasal Cannula Nasal Cannula Nasal Cannula Oxygen Flow Rate (L/min) 3 3 3 01/03/23 12:40 01/03/23 12:50 01/03/23 13:10 Temperature 98.1 F 97.7 F L Temperature Source Temporal Axillary Pulse Rate 69 71 Respiratory Rate 20 H 24 H Respiratory Effort Respiratory Depth Respiratory Pattern Blood Pressure 147/67 H 140/66 H Blood Pressure Mean 93 90 Pulse Ox 84 92 94 Oxygen Delivery Method Room Air Nasal Cannula Nasal Cannula Oxygen Flow Rate (L/min) 3 3 Weight Weight: 127.006 kg Body Mass Index (BMI) 38.0 Physical Exam Const alert, oriented x3 and average body habitus Constitutional Narrative: Pleasant elderly male, sitting comfortably in bed, conversing normally, no acute distress. Does appear mild to moderately fatigued. General Appearance: cooperative and comfortable HEENT normocephalic, head/scalp atraumatic and hearing grossly normal bilaterally HEENT Narrative: Mucous membranes appear mildly dry. Eyes PERRL, EOMs intact bilaterally and conjunctivae normal Neck full ROM, no lymphadenopathy and supple Lymph Lymphatic: no lymphadenopathy noted Chest inspection of chest normal Resp normal respiratory effort Resp Narrative: Satting well on 2 L nasal cannula, no increased work of breathing noted. Does have mild wheezing bilaterally noted in upper airways. Good air movement throughout. Cardio regular rate, regular rhythm, no murmurs and peripheral pulses 2+ throughout GI normal to inspection, nondistended, normoactive bowel sounds, soft to palpation, non-tender and non-distended Back/Spine normal ROM Extremity normal to inspection, full ROM and no pedal edema Skin no rashes or lesions noted Psych mental status grossly normal Results Lab / Micro Data 01/03/23 10:45 01/03/23 10:45 Labs: Laboratory Results - last 24 hr 01/03/23 10:45: WBC 6.3, RBC 4.43 L, Hgb 13.2, Hct 40.2, MCV 90.7, MCH 29.8, MCHC 32.8, RDW Std Deviation 48.0 H, RDW Coeff of Devorah 14.3, Plt Count 141 L, MPV 10.0, Immature Gran % (Auto) 0.500, Neut % (Auto) 84.6 H, Lymph % (Auto) 5.3 L, Mcculloch % (Auto) 7.8, Eos % (Auto) 1.3, Baso % (Auto) 0.5, Absolute Neuts (auto) 5.3, Absolute Lymphs (auto) 0.33 L, Nucleated RBC % 0, Differential Comment COMMENT, Sodium 137, Potassium 3.8, Chloride 103, Carbon Dioxide 27.0, Anion Gap 7, BUN 19 H, Creatinine 0.97, Estim Creat Clear Calc 72.22, Est GFR (MDRD) Af Amer 97, Est GFR (MDRD) Non-Af 80, BUN/Creatinine Ratio 19.5, Glucose 139 H, Calcium 8.5, Troponin I High Sens 13 Radiology Impression Chest CTA 01/03/23 11:57 IMPRESSION: No demonstrated pulmonary embolism or arterial dissection. Scattered groundglass opacities within the right upper lobe, a nonspecific finding may be secondary to edema and/or an infectious process. Atherosclerosis. Electronically Signed: Shannon Beasley MD at 12:45 EDT , Assessment & Plan Assessment/Plan (1) Pneumonia: PLAN: Plan Patient is a 77 M with history of CAD s/p CABG (2020), surgical aortic valve replacement (2020), hypertension, asthma, BPH and anxiety/depression who presented to [facility] ED on 01/03/2023 with worsening shortness of breath and productive cough. 1. Hypoxia, Community-acquired pneumonia Likely viral pneumonia versus mild bacterial community-acquired pneumonia. Mildly hypoxic on admission with sats in high 80s on room air at rest. Labs on admit fairly benign, CT chest imaging with RUL groundglass opacities as noted above. Received 1 dose of both ceftriaxone and azithromycin in the ED. -Will plan for 5-day antibiotic course for CAP. Continue ceftriaxone and azithromycin for now. Blood cultures, sputum culture, respiratory PCR panel pending. Suspect hypoxia will improve with treatment of pneumonia. Plan for O2 walk test tomorrow morning on room air to assess home-going O2 needs. If improved, likely okay for discharge home tomorrow on oral antibiotics. 2. Asthma ? Home inhaler of mometasone?formoterol 2 puffs twice daily. Moderately wheezy on exam in ED, will schedule breathing treatments for every 4 hours till tomorrow and reassess. Continue home inhaler. 3. BPH ? Continue home Flomax and Proscar. 4. CAD status post CABG, essential hypertension ? Continue home aspirin, amlodipine, Lopressor. Hold home Lasix for today, can consider restarting at discharge. 5. Anxiety/depression ? Continue home venlafaxine and Ativan 3 times daily as needed. DVT prophylaxis: Lovenox CODE STATUS: Full code, verified Expected disposition: Home, 1 to 2 days Total clinical time spent by myself addressing the patient's medical issues, reviewing all the data, and collaborating with patient's care team: 55 minutes. Charges/Coding Visit Charges Inpatient E&M: 94212 Init Hosp L2
[2023-01-03 13:39] LABS: Troponin-I HS 13 pg/mL (3.0-78.0)
[2023-01-03] MEDS: Ipratropium/Albuterol Sulfate 3 ML AMPUL.NEB INHALATION ×3 (15:59→23:00)
[2023-01-03] MEDS: Budesonide Respules 0.5 MG/2 ML AMPUL.NEB. INHALATION (19:12)
[2023-01-03] MEDS: Acetaminophen 325 MG Tablet 650 MG PO (22:19)
[2023-01-03] MEDS: Finasteride 5 MG Tablet PO (22:19)
[2023-01-03] MEDS: Metoprolol Tartrate 50 MG Tablet PO (22:20)
[2023-01-03] MEDS: Atorvastatin Calcium 40 MG Tablet PO (22:29)
[2023-01-04] VITALS (15 sets, daily range): BP systolic 118–138; BP diastolic 60–75; PULSE 65–83; RESP 12–21; TEMP 36.6–36.8; O2SAT 90–98
[2023-01-04] MEDS: Ipratropium/Albuterol Sulfate 3 ML AMPUL.NEB INHALATION ×5 (07:27→23:04)
[2023-01-04] MEDS: Budesonide Respules 0.5 MG/2 ML AMPUL.NEB. INHALATION ×2 (07:27→19:23)
[2023-01-04] MEDS: Metoprolol Tartrate 50 MG Tablet PO ×2 (09:20→22:21)
[2023-01-04] MEDS: amLODIPine 5 MG Tablet PO (09:20)
[2023-01-04] MEDS: Venlafaxine XR 37.5 MG Capsule PO (09:21)
[2023-01-04] MEDS: Enoxaparin 40 MG/0.4 ML Syringe SC (09:21)
[2023-01-04] MEDS: Aspirin E.C. 81 MG Tablet PO (09:21)
--- NOTE | 2023-01-04 13:25 | PN_ITS ---
Subjective Subjective Patient seen and examined. He complains of wheezing and coughing; he is expectorating greenish sputum. He denies any fever or chills. Review of systems is otherwise negative. Objective Data Objective Data Vital Signs: Vital Signs Temp Pulse Resp BP Pulse Ox O2 Del Method O2 Flow Rate 98.3 F 77 21 H 126/75 H 97 Room Air 2 01/04/23 09:16 01/04/23 11:01 01/04/23 11:01 01/04/23 09:16 01/04/23 13:02 01/04/23 09:29 01/04/23 08:45 Oxygen Flow Rate (L/min) 2 Oxygen Delivery Method Room Air Weight: 280 lb Body Mass Index (BMI) 38.0 Intake & Output: Intake and Output for Last 24 Hours 01/02/23 01/03/23 01/04/23 23:59 23:59 23:59 Intake Total 305 / 305 200 / 200 Output Total 1275 / 1275 Balance 305 / 205 -1075 / -1075 Lab / Micro Data 01/03/23 10:45 01/03/23 10:45 Labs: Laboratory Results - last 24 hr 01/03/23 13:05: Troponin I High Sens 13 Micro: Microbiology 01/03/23 20:10 Sputum, Expectorated/Coughed Gram Stain - Final 01/03/23 15:49 Mucosa - Nasopharyngeal Respiratory Panel (PCR) - Final Rhinovirus 01/03/23 13:30 Nasal Secretion SARS-CoV-2 & FLU Antigen (Rapid) - Final Physical Exam Const alert, oriented x3 and no apparent distress General Appearance: cooperative HEENT normocephalic, head/scalp atraumatic, moist oral mucous membranes and oropharynx normal Eyes PERRL and EOMs intact bilaterally Neck no lymphadenopathy and supple Lymph Lymphatic: no lymphadenopathy noted and no lymphedema noted Resp Resp Narrative: mildly diminished breath sounds bibasally, no wheezes or crackles. Was on 1L of oxygen by nasal canula, though he was subsequently weaned off oxygen to room air. Cardio regular rate, regular rhythm, S1 normal heart sound, S2 normal heart sound and no murmurs GI normal to inspection, nondistended, normoactive bowel sounds, soft to palpation, non-tender and non-distended Extremity normal capillary refill, no clubbing, cyanosis or edema and no calf tenderness Skin General Skin Exam: no breakdown and turgor normal Neuro CN's II-XII intact bilaterally, no focal motor deficits, no sensory deficits noted and deep tendon reflexes 2+ bilaterally Motor Exam: strength 5/5 throughout Psych thought process normal, cooperative and affect normal Appearance: appropriate Assessment & Plan Assessment/Plan (1) Pneumonia: (2) Hypoxia: PLAN: Plan #HYpoxia due to community acquired pneumonia and rhinovirus infection. * Chest CT showed RUL groundglass opacities * now on room air * on IV ceftriaxone and azithromycin * respiratory panel positive for rhinovirus * blood and sputum cultures pending * titrate oxygen to maintain sats >90% * breathing treatment with bronchodilators * #Asthma: not in exacerbation. on breathing treatment with bronchdilators. #BPH: on flomax and proscar #CAD s/p CABG; on aspirin, amlodipine and metoprolol. #Anxiety and depression; on on venlafaxine and ativan. DVT prophylaxis: lovenox Disposition; anticipate dc over the next 24-48 hours. Charges/Coding Visit Charges Inpatient E&M: 38200 Subs Hosp L2
--- NOTE | 2023-01-04 16:12 | CASEMGMT ---
Met with patient to complete VELASCO form. VELASCO form explained to patient who voiced understanding and signed form. Original form placed in pt?s chart and copy provided to patient. Joanie Rasmussen, Discharge Planning Asst.?
--- NOTE | 2023-01-04 17:35 | CASEMGMT ---
RN?CM?PUBLIC HEALTH WORKER?CM?to room to meet with patient for initial transition planning/care coordination?assessment.?RN?CM?introduced self and role at [facility].? Pt voices understanding and consents to?assessment?at this time.? Pt sitting up in chair in no distress at this time.? at bedside. Pt is A/O at this time and answers all questions appropriately.?? Care providers, pharmacy, and demographics verified/updated at this time.? PCP:?Dr Rangel Specialists:?[facility]/Dr Tipton-cardiology, Dr PrasadWmhqc-ivbhbmq-GXF/Bora, Dr Ioana ShethRfszs-qqzkuyoenwx-BTH/Terri, Dr SwensonOyifd-yzadisnztuwy-RQV/Genevieve, Dr Novak-ortho Preferred Pharmacy:?[facility] Insurance:?MCR, AARP Prescription Benefit:??Yes, [employer] Living Will/HPOA:??Has both LW and HCPOA, who is his , Aileen POM[place]OK:? , Aileen. Son, Philip Living Arrangements:?Lives w/his in 2-story home w/2 steps to enter w/double railing. Bedroom on 2nd level w/double railing. Independent w/ADL's. and pt share home mgnt tasks. Transportation:?Pt states drives self and states no transportation concerns at this time.?? also drives DME: ?States has the following DME:?lift chair, grab bars, pulse ox, cane that he uses most of the time. Also has a shower chair and walker available, if needed. No home O2. ?Pt states no need for further DME at this time.?? HHC/SNF:?Hx: [facility] and has had [facility] in the past. Pt denies need for HHC or OP therapy and no needs identified. Pt wishes to return home and states has no concerns with going home at time of discharge.? CM?to follow for home oxygen needs and any discharge planning/needs.? Pt and voice no concerns/needs at this time.? Advised pt and to ask for?CM?if any questions/concerns/needs arise.? Voices understanding.? PLAN:??Home DG[place]uque BSN?RN?CM
[2023-01-04] MEDS: Doxycycline 100 MG CAPSULE PO (18:25)
[2023-01-04] MEDS: Atorvastatin Calcium 40 MG Tablet PO (22:20)
[2023-01-04] MEDS: Finasteride 5 MG Tablet PO (22:20)
[2023-01-05 03:43] VITALS: PULSE 82; RESP 12
[2023-01-05] MEDS: Ipratropium/Albuterol Sulfate 3 ML AMPUL.NEB INHALATION ×3 (03:43→10:59)
[2023-01-05 04:20] VITALS: BP 130/76; PULSE 73; RESP 18; TEMP 36.8; O2SAT 96
[2023-01-05 06:33] LABS: Absolute Lymphocyte Count 0.74 X10^3/uL (0.83-4.51); Absolute Neutrophil Count 1.9 X10^3/uL (2.0-7.7); Basophil# 0.02 X10^3/uL; Basophil% 0.6 % (0-1); Eosinophil# 0.06 X10^3/uL; Eosinophils% 1.9 % (0-5); Hematocrit 41.9 % (40-54); Hemoglobin 13.5 g/dL (13.0-16.5); Lymphocyte # 0.74 X10^3/ul (0.83-4.51); Lymphocyte % 23.3 % (19-41); Mean Corp Hgb Conc 32.2 g/dL (32-36); Mean Corpuscular Volume 93.1 fL (80-94); Mean Platelet Vol. 10.2 fl (6.2-12.0); Monocyte# 0.45 X10^3/uL; Monocyte% 14.2 % (0-10); NRBC Flagged by Analyzer 0 % (0-5); Neutrophil # 1.88 X10^3/uL (2.7-7.7); Neutrophil % 59.4 % (47-70); Platelet Count 126 K/mm3 (150-450); RBC Distribution Width CV 14.6 % (11.6-14.6); RBC Distribution Width SD 49.9 fl (35.1-43.9); White Blood Count 3.2 K/mm3 (4.4-11.0)
[2023-01-05 06:50] LABS: Anion Gap 5 (5-15); BUN 18 mg/dL (7-18); BUN/Creat Ratio 22.1 RATIO (10-20); Calcium,Total 8.3 mg/dL (8.5-10.1); Chloride 104 mmol/L (98-107); Creatinine, Serum 0.81 mg/dL (0.70-1.30); EST Glomerular Filtration Rate 98 mL/min (>60); Est Glom Filt Rate - Afr Amer 119 mL/min (>60); Estimated Creatinine Clearance 86.49 ml/min; Glucose 111 mg/dL (74-106); Potassium 3.4 mmol/L (3.5-5.1); Sodium Level 139 mmol/L (136-145)
[2023-01-05 07:20] VITALS: PULSE 77; RESP 21
[2023-01-05] MEDS: Budesonide Respules 0.5 MG/2 ML AMPUL.NEB. INHALATION (07:40)
[2023-01-05 09:12] VITALS: BP 140/44; PULSE 82; RESP 16; TEMP 36.6; O2SAT 94
[2023-01-05] MEDS: Potassium Chloride Oral Tablet 20 MEQ 40 MEQ PO (09:23)
[2023-01-05] MEDS: Aspirin E.C. 81 MG Tablet PO (09:23)
[2023-01-05] MEDS: Venlafaxine XR 37.5 MG Capsule PO (09:24)
[2023-01-05] MEDS: Doxycycline 100 MG CAPSULE PO (09:24)
[2023-01-05 09:25] VITALS: PULSE 82
[2023-01-05] MEDS: Metoprolol Tartrate 50 MG Tablet PO (09:25)
[2023-01-05] MEDS: amLODIPine 5 MG Tablet PO (09:25)
[2023-01-05] MEDS: Enoxaparin 40 MG/0.4 ML Syringe SC (09:25)
[2023-01-05 11:16] VITALS: PULSE 82; RESP 18
--- NOTE | 2023-01-05 12:00 | DCINST_ITS ---
Discharge Instructions Diet Discharge Diet: No restrictions Activity Discharge Activity: Return to Normal Activity Follow Up Care Test Results: Test results from this visit will be discussed in further detail at your follow- up appointment, if applicable. Discharge Plan Admission Admit Date/Time: 01/04/23 16:55 Primary Reason for Your Visit: Shortness of breath, rhinovirus Attending Provider: Tami Loza Primary Care Provider: Antonio Rangel Consulting Providers: Yevgeniy Ibarra; Guadalupe Red Instructions Patient Instructions: Understanding the Cold Virus Additional Instructions / Restrictions: DISCHARGE INSTRUCTIONS PLEASE READ *Please take this with you to your next doctors appointment* -You have to be discharged home doxycycline 100 mg twice daily to take through 01/08. Continue your home inhalers -Continue other home medications -Please call your primary care provider's office upon discharge to schedule a hospital follow up within 1 week. -For any concerning signs or symptoms please call 911 or proceed to the nearest emergency department Discharge Orders/Prescriptions Prescriptions: New doxycycline monohydrate 100 mg Capsule 100 mg PO BID 4 Days Qty: 7 0RF Continued zinc 50 mg tablet 50 mg PO DAILY biotin [Etienne Biotin] 10,000 mcg capsule 10,000 mcg PO DAILY vitamin B complex Tablet 1 tab PO DAILY polyethylene glycol 3350 17 gram/dose powder 17 g PO DAILY PRN (Reason: CONSTIPATION ) calcium carbonate-vitamin D3 600 mg calcium-200 unit capsule 600 mg-5 mcg (200 unit) capsule 1 cap PO DAILY Adult 50 Plus Probiotic 4 billion cell capsule 8,000 mmu cells PO DAILY Rx Instructions: administer with a meal aspirin [Adult Aspirin Regimen] 81 mg tablet,delayed release (DR/EC) 81 mg PO DAILY vitamin K2 100 mcg capsule 100 mcg PO DAILY Metamucil 3.4 gram/5.4 gram powder 1 tsp PO DAILY PRN (Reason: CONSTIPATON ) Rx Instructions: mix into at least 4 oz water or juice before administering dicyclomine 20 mg tablet 20 mg PO BID PRN (Reason: IRRITABLE BOWELS) Dulera 100-5 mcg/actuation HFA aerosol inhaler 2 puff inhalation BID tamsulosin 0.4 MG capsule 0.4 mg PO DAILY Patient Comments: PT STATES THAT THEY HAVE BEEN TRYING TO WEAN OFF OF THIS MEDICATIOIN PER DOCTORS APPROVAL finasteride 5 MG tablet 5 mg PO QHS lorazepam 0.5 MG tablet 0.5 mg PO TID PRN (Reason: ANXIETY ) metoprolol tartrate 50 mg Tablet 50 mg PO BID amlodipine 5 mg Tablet 5 mg PO DAILY acetaminophen 500 mg Tablet 500 mg PO Q6H PRN (Reason: Pain) cholecalciferol (vitamin D3) [Vitamin D3] 125 mcg (5,000 unit) Tablet 125 mcg PO DAILY Centrum Men 8 mg iron- 200 mcg-600 mcg Tablet 1 tab PO DAILY venlafaxine 37.5 MG capsule,extended release 24hr 37.5 mg PO DAILY rosuvastatin 20 mg tablet 20 mg PO DAILY Qty: 90 3RF furosemide 40 mg tablet 40 mg PO DAILY Qty: 90 3RF Referrals / Follow Up: Antonio Rangel MD [Primary Care Provider] - Within 1 Week Disposition Disposition (needs filled in before D/C Order can be placed): Home, Self Care
--- NOTE | 2023-01-05 12:03 | PCM.DC.SUM ---
Providers Date of Admission: 01/04/23 Date of Discharge: 01/05/23 Primary Care Physician: Dr. Antonio Rangel MD Reason For Visit: COMMUNITY ACQUIRED PNEUMONIA Diagnosis Discharge Diagnosis (1) Pneumonia: Status: Acute Code(s): J18.9 - Pneumonia, unspecified organism (2) Hypoxia: Status: Acute Code(s): R09.02 - Hypoxemia Plan #CAP #URI w/ Rhinovirus #BPH #GERD #CAD s/p CABG #pafib #surgical aortic valve replacement (2020), #HTN Medications at Discharge Home Medications finasteride 5 mg tablet 5 mg PO QHS URINARY RETENTION 07/08/17 lorazepam 0.5 mg tablet 0.5 mg PO TID PRN ANXIETY 07/08/17 tamsulosin 0.4 mg capsule 0.4 mg PO DAILY PROSTATE 07/08/17 biotin 10,000 mcg capsule (Etienne Biotin) 10,000 mcg PO DAILY SUPPLEMENT 11/27/18 vitamin B complex 1 tab PO DAILY SUPPLEMENT 11/27/18 zinc 50 mg tablet 50 mg PO DAILY SUPPLEMENT 11/27/18 metoprolol tartrate 50 mg tablet 50 mg PO BID BLOOD PRESSURE 12/31/20 acetaminophen 500 mg tablet 500 mg PO Q6H PRN Pain 01/08/21 amlodipine 5 mg tablet 5 mg PO DAILY BLOOD PRESSURE 01/08/21 cholecalciferol (vitamin D3) 125 mcg (5,000 unit) tablet (Vitamin D3) 125 mcg PO DAILY SUPPLEMENT 01/08/21 multivit,Ca,min-iron 8 mg-folic acid 200 mcg-lycopene 600 mcg tablet (Centrum Men) 1 tab PO DAILY SUPPLEMENT 01/08/21 venlafaxine 37.5 mg capsule,extended release 24 hr 37.5 mg PO DAILY ANTIDEPRESSANT 01/08/21 aspirin 81 mg tablet,delayed release (Adult Aspirin Regimen) 81 mg PO DAILY HEART HEALTH 06/06/21 lactobacillus combination no.9 4 billion cell capsule (Adult 50 Plus Probiotic) 8,000 mmu cells PO DAILY GUT HEALTH 06/06/21 vitamin K2 100 mcg capsule 100 mcg PO DAILY SUPPLEMENT 06/06/21 polyethylene glycol 3350 17 gram/dose oral powder 17 g PO DAILY PRN CONSTIPATION 11/30/21 psyllium husk 3.4 gram/5.4 gram oral powder (Metamucil) 1 tsp PO DAILY PRN CONSTIPATON 07/20/22 rosuvastatin 20 mg tablet 20 mg PO DAILY CHOLESTEROL #90 tabs 01/25/22 calcium carbonate 600 mg-vitamin D3 5 mcg (200 unit) capsule 1 cap PO DAILY SUPPLEMENT 06/08/22 dicyclomine 20 mg tablet 20 mg PO BID PRN IRRITABLE BOWELS 06/08/22 mometasone-formoterol HFA 100 mcg-5 mcg/actuation aerosol inhaler (Dulera) 2 puff inhalation BID ASTHMA 06/08/22 furosemide 40 mg tablet 40 mg PO DAILY FLUID #90 tabs 10/17/22 doxycycline monohydrate 100 mg capsule 100 mg PO BID 4 days #7 caps 01/05/23 Hospital Course Summary of Care Provided Minutes Spent on Discharge: 31 Hospital Course: JAHAIRA MAYORGA is a 77 M with history of CAD s/p CABG (2020), surgical aortic valve replacement (2020), hypertension, asthma, BPH and anxiety/depression who presented to [facility] ED on 01/03/2023 with worsening shortness of breath and productive cough. He was initially noted to be hypoxic with pulse ox of 84% on room air requiring O2 and hospitalist consulted for admission. CT chest with right upper lobe groundglass opacities. He was found to have rhinovirus but given his infiltrates with productive cough he was also covered with doxycycline. Patient improved significantly on present medications and was no longer hypoxic, up moving around without new complaints and felt comfortable going home. Discharge instructions as follows: -You have to be discharged home doxycycline 100 mg twice daily to take through 01/08. Continue your home inhalers -Continue other home medications -Please call your primary care provider's office upon discharge to schedule a hospital follow up within 1 week. -For any concerning signs or symptoms please call 911 or proceed to the nearest emergency department Physical Exam Narrative General: Alert, oriented, no apparent distress HEENT: Atraumatic, normocephalic Eyes: Anicteric, normal conjunctiva, extraocular movements grossly intact Neck: Supple Respiratory: Scattered wheezes, normal respiratory effort Cardiovascular: Regular rate GI: Soft, nontender, nondistended Extremities: No edema Musculoskeletal: Moving all extremities Neuro: No overt focal neurological deficits Skin: No rashes appreciated Psych: Cooperative Weight / BMI Weight Weight: 127.006 kg Body Mass Index (BMI) 38.0 ABG / Lab / Microbiology Data 01/05/23 05:40 01/05/23 05:40 Laboratory: Laboratory Results - last 24 hr 01/05/23 05:40: WBC 3.2 L, RBC 4.50 L, Hgb 13.5, Hct 41.9, MCV 93.1, MCH 30.0, MCHC 32.2, RDW Std Deviation 49.9 H, RDW Coeff of Devorah 14.6, Plt Count 126 L, MPV 10.2, Immature Gran % (Auto) 0.600, Neut % (Auto) 59.4, Lymph % (Auto) 23.3, Logan % (Auto) 14.2 H, Eos % (Auto) 1.9, Baso % (Auto) 0.6, Absolute Neuts (auto) 1.9 L, Absolute Lymphs (auto) 0.74 L, Nucleated RBC % 0, Sodium 139, Potassium 3.4 L, Chloride 104, Carbon Dioxide 30.0, Anion Gap 5, BUN 18, Creatinine 0.81, Estim Creat Clear Calc 86.49, Est GFR (MDRD) Af Amer 119, Est GFR (MDRD) Non-Af 98, BUN/Creatinine Ratio 22.1 H, Glucose 111 H, Calcium 8.3 L Microbiology: Microbiology 01/03/23 20:10 Sputum, Expectorated/Coughed Gram Stain - Final 01/03/23 20:10 Sputum, Expectorated/Coughed Respiratory Culture - Final Mixed normal respiratory myles. No Streptococcus pneumoniae, beta-hemolytic Streptococcus or Staphylococcus aureus isolated. 01/03/23 15:49 Mucosa - Nasopharyngeal Respiratory Panel (PCR) - Final Rhinovirus 01/03/23 13:30 Nasal Secretion SARS-CoV-2 & FLU Antigen (Rapid) - Final D/C Instructions Discharge Diet: No restrictions Meaningful Use Info Meaningful Use Diagnoses (Choose all that apply): None applicable Discharge Plan Admission Admit Date/Time: 01/04/23 16:55 Primary Reason for Your Visit: Shortness of breath, rhinovirus Attending Provider: Tami Loza Primary Care Provider: Antonio Rangel Consulting Providers: Yevgeniy Ibarra; Guadalupe Red Instructions Patient Instructions: Understanding the Cold Virus Additional Instructions / Restrictions: DISCHARGE INSTRUCTIONS PLEASE READ *Please take this with you to your next doctors appointment* -You have to be discharged home doxycycline 100 mg twice daily to take through 01/08. Continue your home inhalers -Continue other home medications -Please call your primary care provider's office upon discharge to schedule a hospital follow up within 1 week. -For any concerning signs or symptoms please call 911 or proceed to the nearest emergency department Discharge Orders/Prescriptions Prescriptions: New doxycycline monohydrate 100 mg Capsule 100 mg PO BID 4 Days Qty: 7 0RF Continued zinc 50 mg tablet 50 mg PO DAILY biotin [Etienne Biotin] 10,000 mcg capsule 10,000 mcg PO DAILY vitamin B complex Tablet 1 tab PO DAILY polyethylene glycol 3350 17 gram/dose powder 17 g PO DAILY PRN (Reason: CONSTIPATION ) calcium carbonate-vitamin D3 600 mg calcium-200 unit capsule 600 mg-5 mcg (200 unit) capsule 1 cap PO DAILY Adult 50 Plus Probiotic 4 billion cell capsule 8,000 mmu cells PO DAILY Rx Instructions: administer with a meal aspirin [Adult Aspirin Regimen] 81 mg tablet,delayed release (DR/EC) 81 mg PO DAILY vitamin K2 100 mcg capsule 100 mcg PO DAILY Metamucil 3.4 gram/5.4 gram powder 1 tsp PO DAILY PRN (Reason: CONSTIPATON ) Rx Instructions: mix into at least 4 oz water or juice before administering dicyclomine 20 mg tablet 20 mg PO BID PRN (Reason: IRRITABLE BOWELS) Dulera 100-5 mcg/actuation HFA aerosol inhaler 2 puff inhalation BID tamsulosin 0.4 MG capsule 0.4 mg PO DAILY Patient Comments: PT STATES THAT THEY HAVE BEEN TRYING TO WEAN OFF OF THIS MEDICATIOIN PER DOCTORS APPROVAL finasteride 5 MG tablet 5 mg PO QHS lorazepam 0.5 MG tablet 0.5 mg PO TID PRN (Reason: ANXIETY ) metoprolol tartrate 50 mg Tablet 50 mg PO BID amlodipine 5 mg Tablet 5 mg PO DAILY acetaminophen 500 mg Tablet 500 mg PO Q6H PRN (Reason: Pain) cholecalciferol (vitamin D3) [Vitamin D3] 125 mcg (5,000 unit) Tablet 125 mcg PO DAILY Centrum Men 8 mg iron- 200 mcg-600 mcg Tablet 1 tab PO DAILY venlafaxine 37.5 MG capsule,extended release 24hr 37.5 mg PO DAILY rosuvastatin 20 mg tablet 20 mg PO DAILY Qty: 90 3RF furosemide 40 mg tablet 40 mg PO DAILY Qty: 90 3RF Referrals / Follow Up: Antonio Rangel MD [Primary Care Provider] - Within 1 Week Disposition Disposition (needs filled in before D/C Order can be placed): Home, Self Care Charges/Coding Visit Charges Inpatient E&M: 43667 Disch Hosp >30min
--- NOTE | 2023-01-05 12:48 | CASEMGMT ---
ELAINE HERNANDEZ Discharge Planning Assessment: ELAINE HERNANDEZ to pt room to discuss discharge needs. Pt alert, standing bedside preparing to be discharged home. Pt states his is transporting him home and will be able to assist him at home if needed. Noted pt on RA. Pt denies any discharge needs at this time. DC Plan: Home w/. Janae Oneil RN CM
== END 2023-01-05 12:50 | disposition home or self-care (01) | DRG 194 ==
LOC: ED 13:27 → MS3 13:49
PROVIDERS: Student in an Organized Health Care Education/Training Program; Admitting Provider Hospitalist; Emergency Provider Emergency Medicine; PCP Family Medicine; Visit Provider Internal Medicine
DX: J18.9 Pneumonia, unspecified organism (principal); I50.32 Chronic diastolic (congestive) heart failure; I11.0 Hypertensive heart disease with heart failure; B97.89 Other viral agents as the cause of diseases classified elsewhere; I48.0 Paroxysmal atrial fibrillation; F32.A Depression, unspecified; J45.909 Unspecified asthma, uncomplicated; K21.9 Gastro-esophageal reflux disease without esophagitis; I25.10 Atherosclerotic heart disease of native coronary artery without angina pectoris; J06.9 Acute upper respiratory infection, unspecified; F41.9 Anxiety disorder, unspecified; Z95.2 Presence of prosthetic heart valve; N40.0 Benign prostatic hyperplasia without lower urinary tract symptoms; R09.02 Hypoxemia; Z95.1 Presence of aortocoronary bypass graft; Z79.51 Long term (current) use of inhaled steroids; Z79.82 Long term (current) use of aspirin; Z79.899 Other long term (current) drug therapy; Z87.891 Personal history of nicotine dependence
CPT/HCPCS: 36415; 71275; 80048; 84484; 85025; 87040; 87070; 87205; 87428; 87633; 93005; 94640; 94762; 97162; 97165; 99285; Q9967; A4216; J0696

== ENCOUNTER → 2023-06-12 | Outpatient (CLI) | payer MEDICARE, OTHER, SELFPAY ==
--- OUTSIDE RECORDS SUMMARY | 2023-06-12 10:00 | XMS RPT_ITS | CCD ---
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 Name Role Phone Antonio Stewart Unavailable Unavailable Pat, Antonio Unavailable Unavailable MADDY REAL Unavailable Unavailable Pat, Antonio Unavailable Unavailable MADDY REAL Unavailable Unavailable MADDY REAL Unavailable Unavailable Unavailable Primary Care Provider UnavailAntonio Mayfield MD Primary Care Provider Philip Nicole MD Unavailable Alec HENRY, Yudy Unavailable nAtonio Stewart MD Primary Care Provider Philip Nicole MD Unavailable Alec HENRY, Yudy Unavailable Antonio Stewart MD Primary Care Provider Alec HENRY, Yudy Unavailable Antonio Stewart MD Primary Care Provider Philip Nicole MD Unavailable Lyric Cruz RN Unavailable Unavailable PAUL PRASAD Attending Unavailabl e ANTONIO STEWART Referring Unavailable ANTONIO STEWART Primary Care Unavailable Lyric Cruz RN Unavailable Unavailable NATONIO STEWART Primary Care Unavailable ANTONIO STEWART Referring Unavailable IAONA LOU[place] Attending Unavailable ANTONIO STEWART Primary Care Unavailable NICHOLAS SORENSEN Attending Unavailable ANTONIO STEWART Primary Care Unavailable TOMMY PAYAN Referring Unavailable NICHOLAS SORENSEN Attending Unavailable PAUL PRASAD Referring Unavailabl ANTONIO Waldrop Primary Care Unavailable ANTONIO STEWART Primary Care Unavailable Juani DOUGLAS Attending Unavailable ANTONIO STEWART Primary Care Unavailable IOANA LOUIS Referring Unavailable ANTONIO STEWART J Primary Care Unavailable IOANA LOUIS Referring Unavailable PAT, ANTONIO Dyson Primary Care Unavailable Juani DOUGLAS Referring Unavailable PAT, ANTONIO Dyson Primary Care Unavailable LYRIC CARTAGENA Attending Unavailable PAT, ANTONIO Dyson Primary Care Unavailable PAUL PRASAD Referring Unavailabl e PAT, ANTONIO Dyson Attending Unavailable PAT, ANTONIO Dyson Primary Care Unavailable PAT, ANTONIO Dyson Primary Care Unavailable Juani DOUGLAS Referring Unavailable LYRIC CARTAGENA Attending Unavailable PAT, ANTONIO Dyson Primary Care Unavailable IOANA LOUIS Referring Unavailable PAT, ANTONIO Dyson Attending Unavailable PAT, ANTONIO Dyson Primary Care Unavailable PAT, ANTONIO Dyson Primary Care Unavailable Juani DOUGLAS Attending Unavailable PAT, ANTONIO Dyson Primary Care Unavailable PAT, ANTONIO Dyson Referring Unavailable PAT, ANTONIO Dyson Primary Care Unavailable PAT, ANTONIO Dyson Attending Unavailable PAT, ANTONIO Dyson Primary Care Unavailable STEVEN ROJAS Attending Unavailable PAT, ANTONIO Dyson Referring Unavailable PAT, ANTONIO Dyson Primary Care Unavailable PAT, ANTONIO Dyson Referring Unavailable PAT, ANTONIO Dyson Primary Care Unavailable PAT, ANTONIO Dyson Primary Care Unavailable PAUL PRASAD Referring Unavailabl e PAT, ANTONIO Dyson Primary Care Unavailable PAT, ANTONIO Dyson Attending Unavailable PAT, ANTONIO Dyson Primary Care Unavailable IOANA LOUIS Referring Unavailable Allergies Allergy Classification Reported Allergen(s) Allergy Type Date of Onset Reaction(s) Facility (20 sources) ibuprofen; Translations: [IBUPROFEN] Drug Allergy 0 Other: See Comments [facility] Repository (20 sources) AMOXICILLIN-POT CLAVULANATE; Translations: [AMOXICILLIN-PO T CLAVULANATE] Propensity to adverse reactions (disorder) 6 Diarrhea, GI Upset [facility] Repository (20 sources) Amitriptyline; Translations: [AMITRIPTYLINE] Drug Allergy 0 Mental Status Change [facility] (20 sources) Clavulanate; Translations: [CLAVULANIC ACID] Drug Allergy 9 Diarrhea [facility] (20 sources) HYDROmorphone; Translations: [HYDROMORPHONE] Drug Allergy 1 Other: See Comments [facility] Medications Current Medications Medication Drug Class(es) Dates Sig (Normalized) Sig (Original) LORazepam 0.5 mg oral tablet (20 sources) Benzodiazepine Start: 06-16-2020 End: 05-09-2023 take 1 tablet by mouth three times daily as needed LORazepam (ATIVAN) 0.5 mg Indications: Predominant disturbance of emotions Take 1 tablet by mouth three times a day as needed for up to 30 days. 30 tablet 0 04/09/2023 05/09/2023 Active Completed/Discontinued Medications Medication Drug Class(es) Dates Sig (Normalized) Sig (Original) acetaminophen 500 mg oral tablet (20 sources) Start: 12-14-2020 take 2 tablets by mouth every six hours acetaminophen (TYLENOL) 500 mg tablet Take 2 tablets by mouth every 6 hours. 0 12/14/2020 Active Problems Active Problems Problem Classification Problem Date Documented Da te Episodic/Chronic Asthma (15 sources) Cough variant asthma; Translations: [Cough variant asthma] Onset: 3 Chronic Cardiac dysrhythmias (20 sources) Paroxysmal atrial fibrillation; Translations: [Paroxysmal atrial fibrillation] Onset: 1 02-07-2021 Chronic Coagulation and hemorrhagic disorders (1 source) Thrombocytopenic disorder; Translations: [Thrombocytopenia, unspecified] Chronic Conduction disorders (20 sources) First degree atrioventricular block; Translations: [Atrioventricular block, first degree] Onset: 3 12-17-2012 Chronic Congestive heart failure; nonhypertensive (20 sources) Chronic diastolic heart failure; Translations: [Chronic diastolic (congestive) heart failure] Onset: 1 02-07-2021 Chronic Coronary atherosclerosis and other heart disease (20 sources) Coronary atherosclerosis; Translations: [Atherosclerotic heart disease of [place] coronary artery without angina pectoris] Onset: 1 02-07-2021 Chronic Diabetes mellitus without complication (2 sources) Hyperglycemia; Translations: [Hyperglycemia, unspecified] Episodic Disorders of lipid metabolism (20 sources) Hyperlipidemia; Translations: [Other hyperlipidemia] Onset: 1 09-20-2020 Chronic Esophageal disorders (20 sources) Gastroesophageal reflux disease; Translations: [Gastro-esophageal reflux disease without esophagitis] Onset: 8 08-20-2017 Chronic Genitourinary symptoms and ill-defined conditions (20 sources) Urgent desire to urinate; Translations: [Urgency of urination] Onset: 1 10-08-2020 Episodic Heart valve disorders (20 sources) Nonrheumatic aortic (valve) stenosis; Translations: [Aortic valve disorders] Onset: 7 10-28-2020 Chronic Hyperplasia of prostate (20 sources) Benign prostatic hypertrophy with outflow obstruction; Translations: [Benign prostatic hyperplasia with lower urinary tract symptoms] Onset: 8 08-10-2020 Chronic Influenza (1 source) Influenza-like illness; Translations: [Influenza due to unidentified influenza virus with other respiratory manifestations] Episodic Miscellaneous mental health disorders (2 sources) Emotional problems; Translations: [Other symptoms and signs involving emotional state] Episodic Osteoarthritis (5 sources) Bilateral osteoarthritis of knees; Translations: [Bilateral primary osteoarthritis of knee] Onset: 3 03-09-2023 Chronic Other aftercare (1 source) Post-discharge follow-up; Translations: [Encounter for follow-up examination after completed treatment for conditions other than malignant neoplasm] 01-24-2023 Episodic Other and ill-defined cerebrovascular disease (20 sources) Cerebral arterial aneurysm; Translations: [Cerebral aneurysm, nonruptured] Onset: 1 07-22-2020 Chronic Other and ill-defined cerebrovascular disease (1 source) Cerebral aneurysm, nonruptured; Translations: [Cerebral aneurysm, nonruptured] Onset: 2 Chronic Other bone disease and musculoskeletal deformities (1 source) Disorder of skeletal system; Translations: [Disorder of bone, unspecified] 10-04-2022 Episodic Other bone disease and musculoskeletal deformities (1 source) Disorder of bone; Translations: [Other specified disorders of bone density and structure, multiple sites] 10-04-2022 Episodic Other connective tissue disease (1 source) Pain in bilateral legs; Translations: [Pain in right leg] Episodic Other connective tissue disease (1 source) H/O: Disorder; Translations: [Personal history of other diseases of the musculoskeletal system and connective tissue] Episodic Other connective tissue disease (20 sources) Fasciitis with eosinophilia syndrome; Translations: [Diffuse (eosinophilic) fasciitis] Onset: 2 Episodic Other diseases of bladder and urethra (20 sources) Overactive bladder; Translations: [Overactive bladder] Onset: 1 08-10-2020 Chronic Other diseases of bladder and urethra (1 source) Overactive bladder; Translations: [Overactive bladder] Onset: 1 Chronic Other gastrointestinal disorders (1 source) Irritable bowel syndrome; Translations: [Irritable bowel syndrome without diarrhea] 02-16-2023 Chronic Other injuries and conditions due to external causes (5 sources) Muscle and tendon injury; Translations: [Other specified injury of left quadriceps muscle, fascia and tendon, sequela] Onset: 3 03-09-2023 Episodic Other lower respiratory disease (1 source) Cough; Translations: [Cough] Episodic Other lower respiratory disease (9 sources) Hypoxia; Translations: [Hypoxemia] Onset: 3 01-24-2023 Episodic Other male genital disorders (16 sources) Secondary erectile dysfunction; Translations: [Male erectile dysfunction, unspecified] Onset: 3 12-04-2022 Chronic Other male genital disorders (1 source) Male erectile dysfunction, unspecified; Translations: [ED (erectile dysfunction) of organic origin] Onset: 3 Chronic Other non-epithelial cancer of skin (20 sources) Malignant neoplasm of skin; Translations: [Other and unspecified malignant neoplasm of other specified sites of skin] Onset: 8 08-11-2009 Episodic Other non-traumatic joint disorders (2 sources) Pain in right knee; Translations: [Pain in joint, lower leg] Episodic Other non-traumatic joint disorders (1 source) Joint stiffness; Translations: [Stiffness of unspecified joint, not elsewhere classified] Episodic Other non-traumatic joint disorders (1 source) Multiple joint pain; Translations: [Pain in unspecified joint] Episodic Other nutritional; endocrine; and metabolic disorders (20 sources) Obesity; Translations: [Obesity, unspecified] Onset: 3 12-17-2012 Chronic Other nutritional; endocrine; and metabolic disorders (2 sources) Body mass index 30+ - obesity; Translations: [Obesity, unspecified] Chronic Other screening for suspected conditions (not mental disorders or infectious disease) (2 sources) Imaging of thorax abnormal; Translations: [Abnormal findings on diagnostic imaging of other specified body structures] Onset: 3 01-24-2023 Chronic Other upper respiratory infections (1 source) Acute upper respiratory infection; Translations: [Acute upper respiratory infection, unspecified] Episodic Peripheral and visceral atherosclerosis (20 sources) Peripheral vascular disease; Translations: [Peripheral vascular disease, unspecified] Onset: 2 12-08-2011 Chronic Spondylosis; intervertebral disc disorders; other back problems (20 sources) Degeneration of intervertebral disc; Translations: [Degeneration of intervertebral disc, site unspecified] Onset: 5 11-24-2014 Chronic Unclassified (1 source) Unknown / UNK(Unknown) Onset: 7 Unclassified (1 source) Vertigo of central origin; Translations: [Vertigo of central origin] Onset: 2 Past or Other Problems Problem Classification Problem Date Documented Da te Episodic/Chronic Abdominal hernia (20 sources) Bilateral inguinal hernia; Translations: [Bilateral inguinal hernia, without obstruction or gangrene, not specified as recurrent] Onset: 06-24-2016 06-24-2016 Episodic Anal and rectal conditions (20 sources) Anal fissure; Translations: [Anal fissure, unspecified] Onset: 05-19-2009 08-11-2009 Episodic Conditions associated with dizziness or vertigo (20 sources) Vertigo of central origin; Translations: [Vertigo of central origin] Onset: 02-14-2012 02-14-2012 Episodic Coronary atherosclerosis and other heart disease (1 source) Presence of aortocoronary bypass graft; Translations: [S/P CABG x 3] Onset: 12-14-2020 Episodic Fluid and electrolyte disorders (2 sources) Hypokalemia; Translations: [Hypokalemia] Onset: 01-22-2023 01-08-2023 Episodic Hemorrhoids (20 sources) Hemorrhoids; Translations: [Unspecified hemorrhoids] Onset: 11-27-2012 11-27-2012 Episodic Malaise and fatigue (4 sources) Fatigue; Translations: [Other fatigue] Onset: 07-24-2022 Episodic Other and unspecified benign neoplasm (20 sources) Polyp of colon; Translations: [Polyp of colon] Onset: 08-30-2009 09-16-2018 Episodic Other bone disease and musculoskeletal deformities (1 source) Disorder of bone, unspecified; Translations: [Disorder of bone and cartilage] Onset: 10-04-2022 Episodic Other bone disease and musculoskeletal deformities (1 source) Disorder of cartilage, unspecified; Translations: [Disorder of bone and cartilage] Onset: 10-04-2022 Episodic Other bone disease and musculoskeletal deformities (1 source) Other specified disorders of bone density and structure, multiple sites; Translations: [Other specified disorders of bone density and structure, multiple sites] Onset: 10-04-2022 Episodic Other connective tissue disease (20 sources) Spasm; Translations: [Other muscle spasm] Onset: 07-05-2011 08-27-2018 Episodic Other connective tissue disease (17 sources) Finding of thigh; Translations: [Other specified disorders of muscle] Onset: 07-28-2020 07-28-2020 Episodic Other connective tissue disease (17 sources) Thigh pain; Translations: [Pain in right thigh] Onset: 07-28-2020 07-28-2020 Episodic Other diseases of kidney and ureters (2 sources) Other obstructive and reflux uropathy; Translations: [BPH with obstruction/lower urinary tract symptoms] Onset: 08-10-2020 Episodic Other female genital disorders (20 sources) Pelvic floor dysfunction; Translations: [Other specified conditions associated with female genital organs and menstrual cycle] Onset: 05-16-2019 05-16-2019 Episodic Other female genital disorders (1 source) Other specified conditions associated with female genital organs and menstrual cycle; Translations: [High-tone pelvic floor dysfunction] Onset: 05-16-2019 Episodic Other lower respiratory disease (6 sources) Chronic cough; Translations: [Chronic cough] Onset: 05-29-2022 Episodic Other male genital disorders (20 sources) Disorder of male genital organ; Translations: [Hydrocele, unspecified] Onset: 05-21-2011 08-10-2020 Episodic Other male genital disorders (17 sources) Prostatic pain; Translations: [Prostatodynia syndrome] Onset: 09-21-2020 09-21-2020 Episodic Other male genital disorders (1 source) Hydrocele, unspecified; Translations: [Hydrocele, unspecified hydrocele type] Onset: 08-10-2020 Episodic Other non-traumatic joint disorders (1 source) Stiffness of unspecified joint, not elsewhere classified; Translations: [Stiffness in joint] Onset: 07-24-2022 Episodic Other skin disorders (20 sources) Degenerative skin disorder; Translations: [Other specified disorders of the skin and subcutaneous tissue] Onset: 11-03-2003 08-11-2009 Episodic Other skin disorders (20 sources) History of skin and/or subcutaneous tissue disease; Translations: [Personal history of diseases of the skin and subcutaneous tissue] Onset: 10-19-2007 08-11-2009 Episodic Pneumonia (except that caused by tuberculosis or sexually transmitted disease) (20 sources) Infective pneumonia; Translations: [Pneumonia, unspecified organism] Onset: 01-22-2023 01-08-2023 Episodic Residual codes; unclassified (1 source) Other specified postprocedural states; Translations: [History of rectal sphincterotomy] Onset: 07-14-2019 Episodic Skin and subcutaneous tissue infections (20 sources) Cellulitis; Translations: [Cellulitis, unspecified] Onset: 01-01-2021 01-01-2021 Episodic Spondylosis; intervertebral disc disorders; other back problems (20 sources) Neck pain; Translations: [Cervicalgia] Onset: 09-29-2008 08-11-2009 Episodic Results Test Name Value Interpretation Reference Range Facil ity Vital Signs Date Time Vital Sign Value Performing Clinician Facility 04-09-2023 10:27-0500 Body height 180.3 cm Antonio Stewart MD Work Phone: [facility] 04-09-2023 10:27-0500 Body weight 130.91 kg Antonio Stewart MD Work Phone: [facility] 04-09-2023 10:27-0500 Diastolic blood pressure 66 mm[Hg] Antonio Stewart MD Work Phone: [facility] 04-09-2023 10:27-0500 Heart rate 63 /min Antonio Stewart MD Work Phone: [facility] 04-09-2023 10:27-0500 Systolic blood pressure 105 mm[Hg] Antonio Stewart MD Work Phone: [facility] 01-31-2023 09:31-0400 Body weight 132 kg Lyric Cartagena PA-C Work Phone: [facility] 01-31-2023 09:31-0400 Diastolic blood pressure 76 mm[Hg] Lyric Cartagena PA-C Work Phone: [facility] 01-31-2023 09:31-0400 Heart rate 67 /min Lyric Cartagena PA-C Work Phone: [facility] 01-31-2023 09:31-0400 Respiratory rate 15 /min Lyric Pedro PA-C Work Phone: [facility] 01-31-2023 09:31-0400 SaO2% (BldA) [Mass fraction] 93 % Ylric Pedro PA-C Work Phone: [facility] 01-31-2023 09:31-0400 Systolic blood pressure 142 mm[Hg] Lyric Pedro PA-C Work Phone: [facility] 01-24-2023 16:15-0400 Body height 180.3 cm Antonio Stewart MD Work Phone: [facility] 01-24-2023 16:15-0400 Body weight 131.72 kg Antonio Stewart MD Work Phone: [facility] 01-24-2023 16:15-0400 Diastolic blood pressure 66 mm[Hg] Antonio Stewart MD Work Phone: [facility] 01-24-2023 16:15-0400 Heart rate 84 /min Antonio Stewart MD Work Phone: [facility] 01-24-2023 16:15-0400 SaO2% (BldA) [Mass fraction] 94 % Antonio Stewart MD Work Phone: [facility] 01-24-2023 16:15-0400 Systolic blood pressure 126 mm[Hg] Antonio Stewart MD Work Phone: [facility] 01-16-2023 10:49-0400 Body height 180.3 cm NA Douglas PA-C Work Phone: [facility] 01-16-2023 10:49-0400 Body temperature 98.6 [degF] NA Douglas PA-C Work Phone: [facility] 01-16-2023 10:49-0400 Body weight 131.81 kg NA Douglas PA-C Work Phone: [facility] 01-16-2023 10:49-0400 Diastolic blood pressure 74 mm[Hg] NA Douglas PA-C Work Phone: [facility] 01-16-2023 10:49-0400 Heart rate 76 /min NA Douglas PA-C Work Phone: [facility] 01-16-2023 10:49-0400 SaO2% (BldA) [Mass fraction] 93 % NA Douglas PA-C Work Phone: [facility] 01-16-2023 10:49-0400 Systolic blood pressure 144 mm[Hg] NA Douglas PA-C Work Phone: [facility] 01-08-2023 14:25-0400 Body height 180.3 cm Antonio Stewart MD Work Phone: [facility] 01-08-2023 14:25-0400 Body temperature 98.2 [degF] Antonio Stewart MD Work Phone: [facility] 01-08-2023 14:25-0400 Body weight 130.18 kg Antonio Stewart MD Work Phone: [facility] 01-08-2023 14:25-0400 Diastolic blood pressure 58 mm[Hg] Antonio Stewart MD Work Phone: [facility] 01-08-2023 14:25-0400 Heart rate 70 /min Antonio Stewart MD Work Phone: [facility] 01-08-2023 14:25-0400 SaO2% (BldA) [Mass fraction] 93 % Antonio Stewart MD Work Phone: [facility] 01-08-2023 14:25-0400 Systolic blood pressure 114 mm[Hg] Antonio Stewart MD Work Phone: [facility] 12-04-2022 09:44-0400 Body height 180.3 cm Paul Prasad MD Work Phone: [facility] 12-04-2022 09:44-0400 Heart rate 72 /min Paul Prasad MD Work Phone: [facility] 12-04-2022 09:44-0400 SaO2% (BldA) [Mass fraction] 95 % Paul Prasad MD Work Phone: [facility] 08-09-2022 10:18-0400 Body height 182.9 cm Steven Rojas MD Work Phone: [facility] 08-09-2022 10:18-0400 Body temperature 98.1 [degF] Steven Rojas MD Work Phone: [facility] 08-09-2022 10:18-0400 Body weight 129.28 kg Steven Rojas MD Work Phone: [facility] 08-09-2022 10:18-0400 Diastolic blood pressure 76 mm[Hg] Steven Rojas MD Work Phone: [facility] 08-09-2022 10:18-0400 Heart rate 66 /min Steven Rojas MD Work Phone: [facility] 08-09-2022 10:18-0400 Systolic blood pressure 134 mm[Hg] Steven Rojas MD Work Phone: [facility] 07-24-2022 12:03-0400 Body weight 128.37 kg NA Douglas PA-C Work Phone: [facility] 07-24-2022 12:03-0400 Diastolic blood pressure 62 mm[Hg] NA Douglas PA-C Work Phone: [facility] 07-24-2022 12:03-0400 Heart rate 63 /min NA Douglas PA-C Work Phone: [facility] 07-24-2022 12:03-0400 Respiratory rate 16 /min NA Douglas PA-C Work Phone: [facility] 07-24-2022 12:03-0400 SaO2% (BldA) [Mass fraction] 95 % NA Douglas PA-C Work Phone: [facility] 07-24-2022 12:03-0400 Systolic blood pressure 118 mm[Hg] NA Douglas PA-C Work Phone: [facility] 05-29-2022 09:25-0500 Body height 180.3 cm Ioana Louis MD Work Phone: [facility] 05-29-2022 09:25-0500 Body weight 124.74 kg Ioana Louis MD Work Phone: [facility] 05-29-2022 09:25-0500 Diastolic blood pressure 76 mm[Hg] Ioana Louis MD Work Phone: [facility] 05-29-2022 09:25-0500 Heart rate 69 /min Ioana Louis MD Work Phone: [facility] 05-29-2022 09:25-0500 Respiratory rate 14 /min Ioana Louis MD Work Phone: [facility] 05-29-2022 09:25-0500 SaO2% (BldA) [Mass fraction] 94 % Ioana Louis MD Work Phone: [facility] 05-29-2022 09:25-0500 Systolic blood pressure 144 mm[Hg] Ioana Louis MD Work Phone: [facility] 05-29-2022 09:07-0500 Body height 180.3 cm Pulm Wstr Work Phone: [facility] 05-29-2022 09:07-0500 Body weight 124.74 kg Pulm Wstr Work Phone: [facility] 05-29-2022 09:07-0500 Heart rate 69 /min Pulm Wstr Work Phone: [facility] 05-29-2022 09:07-0500 Respiratory rate 14 /min Pulm Wstr Work Phone: [facility] 05-29-2022 09:07-0500 SaO2% (BldA) [Mass fraction] 94 % Pulm Wstr Work Phone: [facility] 05-04-2022 09:58-0500 Diastolic blood pressure 69 mm[Hg] Mi Nurse Work Phone: [facility] 05-04-2022 09:58-0500 Heart rate 65 /min Mi Nurse Work Phone: [facility] 05-04-2022 09:58-0500 Systolic blood pressure 124 mm[Hg] Mi Nurse Work Phone: [facility] 04-17-2022 11:50-0500 Body temperature 100.09 [degF] Henrry Baird METEOROLOGICAL TECHNICIAN.TELECOM ASSISTANT Work Phone: [facility] 04-17-2022 11:50-0500 Body weight 125.92 kg Henrrytello Baird METEOROLOGICAL TECHNICIAN.TELECOM ASSISTANT Work Phone: [facility] 04-17-2022 11:50-0500 Diastolic blood pressure 74 mm[Hg] Henrry Oli METEOROLOGICAL TECHNICIAN.TELECOM ASSISTANT Work Phone: [facility] 04-17-2022 11:50-0500 Heart rate 90 /min Henrry King METEOROLOGICAL TECHNICIAN.TELECOM ASSISTANT Work Phone: [facility] 04-17-2022 11:50-0500 Respiratory rate 20 /min Henrry Oli METEOROLOGICAL TECHNICIAN.TELECOM ASSISTANT Work Phone: [facility] 04-17-2022 11:50-0500 SaO2% (BldA) [Mass fraction] 96 % Henrry Baird METEOROLOGICAL TECHNICIAN.TELECOM ASSISTANT Work Phone: [facility] 04-17-2022 11:50-0500 Systolic blood pressure 138 mm[Hg] Henrry Baird METEOROLOGICAL TECHNICIAN.TELECOM ASSISTANT Work Phone: [facility] 04-04-2022 15:49-0500 Body height 185.4 cm Antonio Stewart MD Work Phone: [facility] 04-04-2022 15:49-0500 Body weight 123.47 kg Antonio Stewart MD Work Phone: [facility] 04-04-2022 15:49-0500 Diastolic blood pressure 80 mm[Hg] Antonio Stewart MD Work Phone: [facility] 04-04-2022 15:49-0500 Heart rate 72 /min Antonio Stewart MD Work Phone: [facility] 04-04-2022 15:49-0500 SaO2% (BldA) [Mass fraction] 95 % Antonio Stewart MD Work Phone: [facility] 04-04-2022 15:49-0500 Systolic blood pressure 140 mm[Hg] Antonio Stewart MD Work Phone: [facility] 10-26-2021 14:00-0400 Body weight 122.47 kg Antonio Stewart MD Work Phone: [facility] 10-26-2021 14:00-0400 Diastolic blood pressure 64 mm[Hg] Antonio Stewart MD Work Phone: [facility] 10-26-2021 14:00-0400 Heart rate 64 /min Antonio Stewart MD Work Phone: [facility] 10-26-2021 14:00-0400 SaO2% (BldA) [Mass fraction] 95 % Antonio Stewart MD Work Phone: [facility] 10-26-2021 14:00-0400 Systolic blood pressure 110 mm[Hg] Antonio Stewart MD Work Phone: [facility] 10-12-2021 14:49-0400 Body weight 120.66 kg Antonio Stewart MD Work Phone: [facility] 10-12-2021 14:49-0400 Diastolic blood pressure 78 mm[Hg] Antonio Stewart MD Work Phone: [facility] 10-12-2021 14:49-0400 Heart rate 71 /min Antonio Stewart MD Work Phone: [facility] 10-12-2021 14:49-0400 Respiratory rate 16 /min Antonio Stewart MD Work Phone: [facility] 10-12-2021 14:49-0400 SaO2% (BldA) [Mass fraction] 98 % Antonio Stewart MD Work Phone: [facility] 10-12-2021 14:49-0400 Systolic blood pressure 134 mm[Hg] Antonio Stewart MD Work Phone: [facility] Encounters Encounter Date Encounter Type Care Provider Facility Start: 04-09-2023 End: 04-09-2023 ambulatory ANTONIO STEWART Facility:[facility] Start: 04-09-2023 End: 04-09-2023 Patient encounter procedure Antonio Stewart MD Work Phone: [facility] Procedures Date Procedure Procedure Detail Performing Clinician Start: 12-04-2022 Urnls dip stick/tablet rgnt auto w/o microscopy Paul Prasad MD Work Phone: Start: 10-04-2022 Dxa bone density study 1/> sites axial skel Antonio Stewart MD Work Phone: Start: 09-28-2022 Lipid 1996 panel - Serum or Plasma Antonio Stewart MD Work Phone: Start: 05-29-2022 Nitric oxide gas determination Ioana Louis MD Work Phone: Start: 05-29-2022 Brncdilat rspse spmtry pre&post-brncdilat admn Ioana Louis MD Work Phone: Start: 06-30-2021 Adult depression screening assessment Philip Nicole MD Work Phone: Start: 12-11-2020 History of coronary artery bypass grafting S/P CABG x 3 Philip Nicole MD Work Phone: Start: 10-09-2019 Colonoscopy Philip Nicole MD Work Phone: Start: 07-14-2019 H/O: surgery History of rectal sphincterotomy Philip Nicole MD Work Phone: History of coronary artery bypass grafting S/P CABG x 3 Antonio Stewart MD Work Phone: History of coronary artery bypass grafting S/P CABG x 3 M Weston Douglas PA-C Work Phone: History of coronary artery bypass grafting S/P CABG x 3 M Weston Douglas PA-C Work Phone: Plan of Treatment Date Care Activity Detail Author Start: 09-29-2027 Lipid 1996 panel - Serum or Plasma Lipid Screening [facility] Start: 09-29-2027 LIPID SCREEN LIPID SCREEN [facility] Start: 01-22-2026 Diabetes Screening Diabetes Screening [facility] Start: 12-27-2025 LIPID SCREEN LIPID SCREEN [facility] Start: 07-24-2025 DIABETES SCREEN DIABETES SCREEN [facility] Start: 04-11-2025 DIABETES SCREEN DIABETES SCREEN [facility] Start: 10-12-2024 DIABETES SCREEN DIABETES SCREEN [facility] Start: 10-08-2024 Colonoscopy COLONOSCOPY [facility] Start: 10-08-2024 COLORECTAL CANCER SCREENING COLORECTAL CANCER SCREENING [facility] Start: 08-09-2024 DIABETES SCREEN DIABETES SCREEN [facility] Start: 07-28-2024 DIABETES SCREEN DIABETES SCREEN [facility] Start: 04-09-2024 Annual PCP Team Chronic Disease Visit Annual PCP Team Chronic Disease Visit [facility] Start: 01-25-2024 Annual PCP Team Chronic Disease Visit Annual PCP Team Chronic Disease Visit [facility] Start: 01-17-2024 Annual PCP Team Chronic Disease Visit Annual PCP Team Chronic Disease Visit [facility] Start: 01-09-2024 ANNUAL PCP TEAM CHRONIC DISEASE VISIT ANNUAL PCP TEAM CHRONIC DISEASE VISIT [facility] Start: 10-08-2023 End: 01-07-2024 CBC W Auto Differential panel - Blood CBC + DIFF Lab Routine Coronary artery disease involving [place] coronary artery of [place] heart without angina pectoris Expected: 10/08/2023, Expires: 01/07/2024 [facility] Work Phone: Immunizations Immunization Date Immunization Notes Care Provider Fa jazmine 02-15-2023 influenza (aIIV4) vaccine, age 65+ yr, quadrivalent, PF (FLUAD QUAD) Antonio Stewart MD Work Phone: [facility] 02-02-2023 respiratory syncytia l virus (RSV) vaccine, adjuvanted (AREXVY) Antonio Stewart MD Work Phone: [facility] 09-27-2022 COVID-19 vaccine, ag e 12+ yr, bivalent ([employer]LED[employer]) Antonio Stewart MD Work Phone: [facility] 01-20-2022 COVID-19 booster vaccine, age 12+ yr, bivalent ([employer]-BIONTECH) Antonio Stewart MD Work Phone: [facility] 01-20-2022 COVID-19 booster vaccine, age 18+ yr, bivalent (MODERNA) Antonio Stewart MD Work Phone: [facility] 01-20-2022 influenza virus vacc ine, unspecified formulation Antonio Stewart MD Work Phone: [facility] 01-20-2022 influenza, high-dose , quadrivalent vaccine (FLUZONE HIGH DOSE QUADRIVALENT) Antonio Stewart MD Work Phone: [facility] 02-10-2021 influenza, high-dose , quadrivalent vaccine (FLUZONE HIGH DOSE QUADRIVALENT) Philip Nicole MD Work Phone: [facility] 07-07-2020 COVID-19 vaccine, ag e 12+ yr (PFIZER-BIONTECH - PURPLE TOP) Philip Nicole MD Work Phone: [facility] 06-16-2020 COVID-19 vaccine, ag e 12+ yr (PFIZER-BIONTECH - PURPLE TOP) Philip Nicole MD Work Phone: [facility] 02-20-2020 influenza, high-dose , quadrivalent vaccine (FLUZONE HIGH DOSE QUADRIVALENT) Philip Nicole MD Work Phone: [facility] 01-22-2019 influenza, high dose seasonal, preservative-free Philip Nicole MD Work Phone: [facility] Work Phone: 08-28-2018 zoster vaccine recombinant Philip Nicole MD Work Phone: [facility] 05-22-2018 zoster vaccine recombinant Philip Nicole MD Work Phone: [facility] 02-27-2018 influenza, high dose seasonal, preservative-free Philip Nicole MD Work Phone: [facility] 02-22-2017 influenza, high dose seasonal, preservative-free Philip Nicole MD Work Phone: [facility] 01-12-2017 influenza, seasonal, injectable, preservative free Philip Nicole MD Work Phone: [facility] 04-13-2016 influenza, high dose seasonal, preservative-free Philip Nicole MD Work Phone: [facility] 02-12-2015 influenza, high dose seasonal, preservative-free Philip Nicole MD Work Phone: [facility] 09-11-2014 pneumococcal conjuga te vaccine, 13 valent Philip Nicole MD Work Phone: [facility] 12-17-2012 pneumococcal polysaccharide vaccine, 23 valent Philip Nicole MD Work Phone: [facility] Work Phone: 12-08-2011 tetanus toxoid, redu fredo diphtheria toxoid, and acellular pertussis vaccine, adsorbed Philip Nicole MD Work Phone: [facility] Work Phone: 08-03-2010 zoster vaccine, live Philip izquierdo MD Work Phone: [facility] Work Phone: 05-18-2009 novel influenza-H1N1 -09, preservative-free, injectable Philip Nicole MD Work Phone: [facility] 03-17-2006 influenza virus vacc ine, unspecified formulation Philip Nicole MD Work Phone: [facility] Work Phone: 04-05-2005 influenza virus vacc ine, unspecified formulation Philip Nicole MD Work Phone: [facility] Work Phone: Payers Date Payer Category Payer Private Health Insurance [facility] AARP SUPPLEMENT [id number] 2022-Present [phone] [address] [place] [address] Indemnity [id number] 2022 Unknown [id number] 2021 Medicare [employer] MEDICARE A ETNA MEDICARE PPO [id number] 2021-Present [phone] [address] [place] [address] PPO [id number] 2012 Medicare [id number] 2012 Medicare [id number] Medicare [id number] Social History Date Type Detail Facility Tobacco smoking stat [facility] Unknown if ever smoked [facility] Work Phone: Start: 1945 Sex Assigned At Not on file [email or web address] Work Phone: Start: 12-31-2017 End: 05-29-2022 Tobacco smoking status SDIS Ex-smoker [facility] End: 11-19-1979 History of tobacco use Current smoker [facility] End: 11-19-1979 History of tobacco use Pipe Smoker [facility] Start: 08-01-2021 End: 04-09-2023 Alcohol intake Current drinker of alcohol (finding) [facility] Start: 07-26-2021 End: 04-03-2022 History SDOH Alcohol Frequency 5 [facility] Start: 07-26-2021 End: 04-03-2022 History SDOH Alcohol Std Drinks 1 [facility] Start: 12-31-2017 History SDOH Alcohol Comment 1 beer daily [facility] Start: 07-26-2021 End: 04-03-2022 History SDOH Social Connections Phone 4 [facility] Start: 07-26-2021 End: 04-03-2022 History SDOH Social Connections Get Together 2 [facility] Start: 07-26-2021 End: 04-03-2022 History SDOH Social Connections Living 3 [facility] Start: 09-08-2019 Education 18 [facility] Start: 02-24-2011 End: 04-04-2022 Tobacco Comment quit 30yrs ago [facility] Start: 1945 Sex Assigned At Male [facility] Start: 07-22-2021 End: 04-17-2022 Exposure to SARS-CoV-2 (event) Not sure [facility] Start: 12-31-2017 End: 05-29-2022 Tobacco use and exposure Smokeless tobacco non-user [facility] History of tobacco use Cigarette Smoker [facility] Work Phone: Start: 05-29-2022 Tobacco Comment quit 30yrs ago. 1 ppd for a few years [facility] Start: 04-03-2022 End: 10-06-2022 History of Social function [facility] Start: 04-03-2022 End: 10-06-2022 Social connection and isolation panel [facility] Do you belong to any clubs or organizations such as religion groups, unions, fraternal or athletic groups, or school groups? Yes [facility] Are you now , , , , never or living with a partner? [facility] How often to you hav e a drink containing alcohol? 4 or more times a week [facility] How many standard dr inks containing alcohol do you have on a typical day? 1 or 2 [facility] How often do you hav e 6 or more drinks on 1 occasion? Never [facility] How hard is it for y ou to pay for the very basics like food, housing, medical care, and heating Not very hard [facility] Adult Depression Screening Assessment 1 [facility] Work Phone: Do you feel stress - tense, restless, nervous, or anxious, or unable to sleep at night because your mind is troubled all the time - these days [OSQ] Not at all [facility] (I/We) worried nicola er (my/our) food would run out before (I/we) got money to buy more. Never true [facility] In the past 12 month s, was there a time when you were not able to pay the mortgage or rent on time? No [facility] Start: 09-17-2018 Gender identity Identifies as male gender (finding) [facility] Start: 09-17-2018 Sexual orientation Heterosexual (finding) [facility] Do you feel stress - tense, restless, nervous, or anxious, or unable to sleep at night because your mind is troubled all the time - these days [OSQ] Only a little [facility] Medical Equipment Procedure Code Equipment Code Equipment Original Text Equipment Identifier Dates Pledget Cardiova scular 3/16x.25in Thk1.65mm Rectangle Ptfe [place] - [id number] Start: 11-30-2020 Pledget Cardiova scular 3/16x.25in Thk1.65mm Rectangle Ptfe [place] - [id number] Start: 11-30-2020 Implant [employer] - [id number] Start: 09-09-2020 Implant [employer] - [id number] Start: 09-09-2020 Implant [employer]ift U[employer] - [id number] Start: 09-09-2020 Implant [employer]ift U[employer] - [id number] Start: 09-09-2020 Implant [employer]rolift U[employer] - [id number] Start: 09-09-2020 Implant [employer]ift [employer] - [id number] Start: 09-09-2020 Valve Hendricks In spiris Resilia 23mm Pericardial Aortic Bioprosthesis - [id number] Start: 11-30-2020 Goals Date Patient Goal Desired Activity /State Personal health goal Clinical Notes 11-30-2020 to 04-09-2023 Antonio Stewart MD - 04/09/2023 10:27 AM Nicholas Arias, PT - 03/20/2023 8:48 AM Nicholas Arias, PT - 03/09/2023 8:03 AM EDTTelephone Encounter - Joey Mcgrath MD - 02/16/2023 9:25 AM EDT Note Date & Type Note Facility 04-09-2023 Note HNO ID: [id number] Author: Antonio Stewart MD Service: ? Author Type: Physician Type: Progress Notes Filed: 04/09/2023 10:52 AM Note Text: Patient presents with: 6 Month Exam HPI: Patient presents today for office visit for follow up. HTN: Does not monitor BP at home Denies chest pain and shortness of breath Denies headaches and dizziness Denies palpitations No syncopal episodes No edema Followed by Cardiology, Pulm and Rheum and urology and dermatology. No myalgias Skin is doing well. Emotionally doing well. Breathing is stable. Occ wheezing Component Latest Ref Rng AND Units 01/22/2023 WBC 3.70 - 11.00 k/uL 7.09 RBC 4.20 - 6.00 m/uL 4.73 Hemoglobin 13.0 - 17.0 g/dL 14.2 Hematocrit 39.0 - 51.0 % 44.3 MCV 80.0 - 100.0 fL 93.7 MCH 26.0 - 34.0 pg 30.0 MCHC 30.5 - 36.0 g/dL 32.1 RDW-CV 11.5 - 15.0 % 14.6 Platelet Count 150 - 400 k/uL 172 MPV 9.0 - 12.7 fL 10.3 Neut% % 70.3 Abs Neut (ANC) 1.45 - 7.50 k/uL 4.99 Lymph% % 19.3 Abs Lymph 1.00 - 4.00 k/uL 1.37 Denali% % 7.1 Abs [place] <0.87 k/uL 0.50 Eosin% % 1.6 Abs Eosin <0.46 k/uL 0.11 Baso% % 0.6 Abs Baso <0.11 k/uL 0.04 Immature Gran % % 1.1 IMMATURE GRANS (ABS) <0.10 k/uL 0.08 NRBC /100 WBC 0.0 Absolute nRBC <0.01 k/uL <0.01 DTYPE Auto Glucose 74 - 99 mg/dL 128 (H) BUN 9 - 24 mg/dL 20 Creatinine 0.73 - 1.22 mg/dL 0.88 Sodium 136 - 144 mmol/L 141 Potassium 3.7 - 5.1 mmol/L 3.8 Chloride 97 - 105 mmol/L 101 CO2 22 - 30 mmol/L 28 Anion Gap 9 - 18 mmol/L 12 Calcium 8.5 - 10.2 mg/dL 8.7 eGFR >=60 mL/min/1.73mA? 90 Hemoglobin A1C 4.3 - 5.6 % 5.4 Estimated Average Glucose mg/dL 108 PSA <2.60 ng/mL 1.35 MEDICATIONS: Current Outpatient Medications Medication Sig dicyclomine (BENTYL) 20 mg tablet Take 1 tablet by mouth four times a day as needed. albuterol HFA (PROVENTIL HFA, VENTOLIN HFA) 90 mcg/actuation inhaler Inhale 2 Puffs as instructed every 6 hours as needed for wheezing/shortness of breath. tiZANidine (ZANAFLEX) 4 mg tablet 1/2 to 1 tab q8h as needed for pain/ spasm metoprolol tartrate, short acting, (LOPRESSOR) 50 mg tablet Take 1 tablet by mouth every 12 hours. amLODIPine (NORVASC) 5 mg tablet Take 1 tablet by mouth once daily. furosemide (LASIX) 20 mg tablet Take 2 tablets by mouth once daily. rosuvastatin (CRESTOR) 20 mg tablet Take 1 tablet by mouth daily at bedtime. ipratropium bromide (ATROVENT) 42 mcg (0.06 %) nasal spray Use 1 Center in the nose once daily. Lactobacillus acidophilus (PROBIOTIC ORAL) Take by mouth. finasteride (PROSCAR) 5 mg tablet Take 1 tablet by mouth once daily. mometasone-formoterol (DULERA) 100-5 mcg/actuation inhaler Inhale 2 Puffs as instructed twice daily. venlafaxine ER (EFFEXOR XR) 37.5 mg 24 hr capsule Take 1 capsule by mouth once daily. dilTIAZem ointment 2% (CPD) by RECTAL route twice daily. LORazepam (ATIVAN) 0.5 mg Take 1 tablet by mouth three times daily as needed for up to 30 days. acetaminophen (TYLENOL) 500 mg tablet Take 2 tablets by mouth every 6 hours. senna-docusate (SENNA-S) 8.6-50 mg per tablet Take 1 tablet by mouth twice daily. simethicone, chewable (MYLICON) 80 mg chewable tablet Take 1 tablet by mouth four times daily as needed. cholecalciferol, vitamin D3, (VITAMIN D3 ORAL) Take 1 capsule by mouth once daily. aspirin, enteric coated (ASPIRIN, ENTERIC COATED) 81 mg EC tablet Take 81 mg by mouth once daily. Zinc 50 mg tab Take by mouth once daily. Biotin 10,000 mcg cap Take by mouth once daily. docusate sodium (COLACE ORAL) Take by mouth as needed. polyethylene glycol 3350 (MIRALAX, GLYCOLAX) 17 gram/dose powder Take 17 g by mouth as needed. vitamin b complex tab Take 1 tablet by mouth once daily. calcium carbonate/vitamin d3(CALCIUM 600 WITH VITAMIN D3 600 MG (1,500)-200 UNIT TAB) Take one(1) tablet twice daily. CENTRUM TABLET Take one(1) tablet daily. No current facility-administered medications for this visit. ALLERGIES: ALLERGIES Allergen Reactions Amitriptyline Mental Status Change Augmentin [Amoxicil* Diarrhea, GI Upset Clavulanic Acid Diarrhea Hydromorphone Other: See Comments [place] very dopey and nauseated Ibuprofen Other: See Comments ulcer from high doses PAST MEDICAL HISTORY Diagnosis Date Anal fissure Aortic stenosis moderate Basal cell carcinoma of forehead 2010 BPH with obstruction/lower urinary tract symptoms Colon polyps Degenerative skin disorder 2003 venous leg ulcers. improved w Trental. Disorder of bone and cartilage, unspecified since 1994 mild -penia at femoral neck only Esophageal reflux Gastroesophageal reflux HLD (hyperlipidemia) HTN (hypertension) Hydrocele 05/21/2011 Personal history of unspecified disease eosinophilc fasciitis [id number]. remission since 1995. 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 [facility] 04-09-2023 History of Presen t illness Narrative Patient presents with: 6 Month Exam HPI: Patient presents today for office visit for follow up. HTN: Does not monitor BP at home Denies chest pain and shortness of breath Denies headaches and dizziness Denies palpitations No syncopal episodes No edema Followed by Cardiology, Pulm and Rheum and urology and dermatology. No myalgias Skin is doing well. Emotionally doing well. Breathing is stable. Occ wheezing Component Latest Ref Rng & Units 01/22/2023 WBC 3.70 - 11.00 k/uL 7.09 RBC 4.20 - 6.00 m/uL 4.73 Hemoglobin 13.0 - 17.0 g/dL 14.2 Hematocrit 39.0 - 51.0 % 44.3 MCV 80.0 - 100.0 fL 93.7 MCH 26.0 - 34.0 pg 30.0 MCHC 30.5 - 36.0 g/dL 32.1 RDW-CV 11.5 - 15.0 % 14.6 Platelet Count 150 - 400 k/uL 172 MPV 9.0 - 12.7 fL 10.3 Neut% % 70.3 Abs Neut (ANC) 1.45 - 7.50 k/uL 4.99 Lymph% % 19.3 Abs Lymph 1.00 - 4.00 k/uL 1.37 Denali% % 7.1 Abs [place] <0.87 k/uL 0.50 Eosin% % 1.6 Abs Eosin <0.46 k/uL 0.11 Baso% % 0.6 Abs Baso <0.11 k/uL 0.04 Immature Gran % % 1.1 IMMATURE GRANS (ABS) <0.10 k/uL 0.08 NRBC /100 WBC 0.0 Absolute nRBC <0.01 k/uL <0.01 DTYPE Auto Glucose 74 - 99 mg/dL 128 (H) BUN 9 - 24 mg/dL 20 Creatinine 0.73 - 1.22 mg/dL 0.88 Sodium 136 - 144 mmol/L 141 Potassium 3.7 - 5.1 mmol/L 3.8 Chloride 97 - 105 mmol/L 101 CO2 22 - 30 mmol/L 28 Anion Gap 9 - 18 mmol/L 12 Calcium 8.5 - 10.2 mg/dL 8.7 eGFR >=60 mL/min/1.73m 90 Hemoglobin A1C 4.3 - 5.6 % 5.4 Estimated Average Glucose mg/dL 108 PSA <2.60 ng/mL 1.35 MEDICATIONS: Current Outpatient Medications Medication Sig dicyclomine (BENTYL) 20 mg tablet Take 1 tablet by mouth four times a day as needed. albuterol HFA (PROVENTIL HFA, VENTOLIN HFA) 90 mcg/actuation inhaler Inhale 2 Puffs as instructed every 6 hours as needed for wheezing/shortness of breath. tiZANidine (ZANAFLEX) 4 mg tablet 1/2 to 1 tab q8h as needed for pain/ spasm metoprolol tartrate, short acting, (LOPRESSOR) 50 mg tablet Take 1 tablet by mouth every 12 hours. amLODIPine (NORVASC) 5 mg tablet Take 1 tablet by mouth once daily. furosemide (LASIX) 20 mg tablet Take 2 tablets by mouth once daily. rosuvastatin (CRESTOR) 20 mg tablet Take 1 tablet by mouth daily at bedtime. ipratropium bromide (ATROVENT) 42 mcg (0.06 %) nasal spray Use 1 Center in the nose once daily. Lactobacillus acidophilus (PROBIOTIC ORAL) Take by mouth. finasteride (PROSCAR) 5 mg tablet Take 1 tablet by mouth once daily. mometasone-formoterol (DULERA) 100-5 mcg/actuation inhaler Inhale 2 Puffs as instructed twice daily. venlafaxine ER (EFFEXOR XR) 37.5 mg 24 hr capsule Take 1 capsule by mouth once daily. dilTIAZem ointment 2% (CPD) by RECTAL route twice daily. LORazepam (ATIVAN) 0.5 mg Take 1 tablet by mouth three times daily as needed for up to 30 days. acetaminophen (TYLENOL) 500 mg tablet Take 2 tablets by mouth every 6 hours. senna-docusate (SENNA-S) 8.6-50 mg per tablet Take 1 tablet by mouth twice daily. simethicone, chewable (MYLICON) 80 mg chewable tablet Take 1 tablet by mouth four times daily as needed. cholecalciferol, vitamin D3, (VITAMIN D3 ORAL) Take 1 capsule by mouth once daily. aspirin, enteric coated (ASPIRIN, ENTERIC COATED) 81 mg EC tablet Take 81 mg by mouth once daily. Zinc 50 mg tab Take by mouth once daily. Biotin 10,000 mcg cap Take by mouth once daily. docusate sodium (COLACE ORAL) Take by mouth as needed. polyethylene glycol 3350 (MIRALAX, GLYCOLAX) 17 gram/dose powder Take 17 g by mouth as needed. vitamin b complex tab Take 1 tablet by mouth once daily. calcium carbonate/vitamin d3(CALCIUM 600 WITH VITAMIN D3 600 MG (1,500)-200 UNIT TAB) Take one(1) tablet twice daily. CENTRUM TABLET Take one(1) tablet daily. No current facility-administered medications for this visit. ALLERGIES: ALLERGIES Allergen Reactions Amitriptyline Mental Status Change Augmentin [Amoxicil* Diarrhea, GI Upset Clavulanic Acid Diarrhea Hydromorphone Other: See Comments [place] very dopey and nauseated Ibuprofen Other: See Comments ulcer from high doses PAST MEDICAL HISTORY Diagnosis Date Anal fissure Aortic stenosis moderate Basal cell carcinoma of forehead 2010 BPH with obstruction/lower urinary tract symptoms Colon polyps Degenerative skin disorder 2003 venous leg ulcers. improved w Trental. Disorder of bone and cartilage, unspecified since 1994 mild -penia at femoral neck only Esophageal reflux Gastroesophageal reflux HLD (hyperlipidemia) HTN (hypertension) Hydrocele 05/21/2011 Personal history of unspecified disease eosinophilc fasciitis [id number]. remission since 1995. 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 Shingles 2010 left facial - treated with antiviral and gabapentin PAST SURGICAL HISTORY Procedure Laterality Date CLSR ANAL FSTL W/RCT ADVMNT FLAP 1998 COLECTOMY PARTIAL W/ANASTOMOSIS 07/11/2017 For sigmoid volvulus COLONOSCOPY 09/2015 COLONOSCOPY FLX DX W/COLLJ SPEC WHEN PFRMD 10/09/2019 Colonoscopy EXCISION PILONIDAL CYST/SINUS SIMPLE 1972 PAST SURGICAL HISTORY OF 09/2010 Sphincterotomy PAST SURGICAL HISTORY OF 2013 fistulotomy PAST SURGICAL HISTORY OF Right Laser Ablation on veins PAST SURGICAL HISTORY OF 1998 sphincterotomy PAST SURGICAL HISTORY OF 11/2020 CABG/AVR PAST SURGICAL HISTORY OF Left Quadriceps tendon RPLCMT PROST AORTIC VALVE OPEN XCP HOMOGRF/STENT 11/30/2020 FAMILY HISTORY Problem Relation Age of Onset Cancer Mother uterine GI Mother colon resection for diverticulitis Cancer Father non-melanoma skin ca Diabetes Father around age 50 Ischemic Heart Disease Father bypass at age 70 Social History Tobacco Use Smoking status: Former Types: Pipe, Cigarettes Quit date: 11/19/1979 Years since quittin.4 Smokeless tobacco: Never Tobacco comments: quit 30yrs ago. 1 ppd for a few years Vaping Use Vaping Use: Never used Substance Use Topics Alcohol use: Yes Comment: 1 beer daily Drug use: No Reviewed current medications, allergies, past medical history, surgical history, family history and social history today. REVIEW OF SYSTEMS No falls or gi issues. All other reviewed and negative other than HPI. HEALTH MAINTENANCE: Reviewed health maintenance issues today and recommended the following in detail. Influenza Vaccine- was doing well. VITALS: BP 105/66 Pulse 63 Ht 180.3 cm (5' 11 ) Wt 130.9 kg (288 lb 9.6 oz) BMI 40.25 kg/m Last 4 Encounter Wt Readings: Date: Wt: 01/31/2023 132 kg (291 lb) 01/24/2023 131.7 kg (290 lb 6.4 oz) 01/16/2023 131.8 kg (290 lb 9.6 oz) 01/08/2023 130.2 kg (287 lb) PHYSICAL EXAMINATION: General appearance: Well appearing, alert, in no acute distress, well-hydrated, well nourished. Skin: Skin color, texture, turgor normal, no suspicious rashes or lesions Head: Normocephalic, no masses, lesions, tenderness or abnormalities Lungs: Lungs clear to auscultation. No wheezing, rhonchi, rales Heart: RRR without murmur, gallop, or rubs. No ectopy Abdomen: Normal abdominal exam, Abdomen soft, non-tender. Bowel sounds normal. No masses, organomegaly Extremities: No deformities, edema, skin discoloration, clubbing or cyanosis. Good capillary refill. Musculoskeletal: No joint swelling, deformity, or tenderness ASSESSMENT/PLAN: 1. Cerebral aneurysm, nonruptured - ICD9: 437.3, ICD10: I67.1 (primary diagnosis) - due to recheck to . No issues. 2. Malignant neoplasm of skin - ICD9: 173.90, ICD10: C44.90 - follows with derm. 3. Cough variant asthma - ICD9: 493.82, ICD10: J45.991 - no current issues. 4. Paroxysmal atrial fibrillation (HCC) - ICD9: 427.31, ICD10: I48.0 - stable. On asa a day. Per cardiology. 5. Coronary artery disease involving [place] coronary artery of [place] heart without angina pectoris - ICD9: 414.01, ICD10: I25.10 - doing well. 6. Chronic diastolic congestive heart failure (HCC) - ICD9: 428.32, 428.0, ICD10: I50.32 - stable. 7. Other hyperlipidemia - ICD9: 272.4, ICD10: E78.49 - stable. 8. Eosinophilic fasciitis - ICD9: 728.89, ICD10: M35.4, D72.18 - per rheum. 9. Anxiety. Needs refill on ativan. Aware of risks and benefits. Very rarely uses it. Oarrs done. Antonio Stewart MD documented in this encounter [facility] 03-20-2023 Note HNO ID: [id number] Author: Nicholas Sorensen PT Service: ? Author Type: Physical Therapist Type: Progress Notes Filed: 03/20/2023 8:51 AM Note Text: Upon reaching the treatment room pt explains that this may not be the right time to go through physical therapy. Pt reports his R knee hurts and he is getting injection in the knee now and wants to wait to continue with PT until after the series of injections are completed. Pt walked out of the PT area to cancel his appointments. Nicholas Sorensen PT [facility] 03-20-2023 History of Presen t illness Narrative Upon reaching the treatment room pt explains that this may not be the right time to go through physical therapy. Pt reports his R knee hurts and he is getting injection in the knee now and wants to wait to continue with PT until after the series of injections are completed. Pt walked out of the PT area to cancel his appointments. Nicholas Sorensen PT documented in this encounter [facility] 03-09-2023 Note HNO ID: [id number] Author: NICHOLAS SORENSEN PT Service: ? Author Type: Physical Therapist Type: Progress Notes Filed: 05/17/2023 08:56 Note Text: Episode Visit Count: 1 Therapist That Will Accept/Oversee The Plan Of Care: Nicholas Sorensen Start of Care Date: 03/09/23 Onset Date: 12/12/22 Plan of Care Certification Date: 03/09/23 Next Certification Due Date: 04/13/23 Patient Identified by Name and Date of : Yes REHABILITATION AND SPORTS THERAPY PHYSICAL THERAPY EVALUATION PLAN OF CARE: Assessment: Donald Mayorga presents with chief complaint of L quad weakness that interferes with stair negotiation, rising from a chair, walking . He presents with impairments in independence in exercise, overall function, and strength. PROMIS? (Patient-Reported Outcomes Measurement Information System) scores were reviewed and physical function domain identified as a rehabilitation concern. Prognosis for therapy is Fair due to: clinical presentation, multiple co- morbidities, chronic nature of impairments . Main findings is weakness and a quad lag of the LLE. He will benefit from skilled therapy services to meet the goals established for this plan of care as noted below. Goals for Episode of Care: created on 03/09/23 through 06/01/23 [place] in home exercise program. Increased strength of L quad to 4+/5 or greater for return to PLOF. Normal gait. Reciprocal stair negotiation. Patient Goals: Wants to be able to get up the stairs. Planned Interventions, Frequency, and Duration: Current Frequency: 2x/week Duration: 4 weeks Total Number of Visits Planned: 8 Planned Treatment Interventions: Therapeutic exercise (92287), Neuromuscular re-education (44996), Manual therapy (35817), Therapeutic activities (22464), Self-residential management (79780), Patient/Family/Caregiver Education PLAN FOR NEXT VISIT: Unable to use BFR based on medical history... however pt will reach out to his group fitness manager and another doctor who did a procedure for him in the past to get their opinion. Trial leg press if tolerated. Patient demonstrates good understanding of plan of care and treatment. The above goals and plan of care were discussed and agreed upon by patient/family. SUBJECTIVE: Decreased strength in the LLE. Needs BFR to help with strengthening. Fell back in december of 2020 and eventually was repaired (after 3 weeks). 6 weeks immobilized. Patient Goals: Wants to be able to get up the stairs. Functional Limitations: stair negotiation, rising from a chair, walking Prior Level of Function: Independent without limitations Intake Information: Prescription present Previous Treatment: Physical Therapy Falls Interview: No positive findings with falls interview Pain: Pain Pain Level: 0 ( Not very painful ) Pain Location: Knee - Left PROMIS Scales Higher is Better 03/06/2023 08/08/2022 06/30/2021 Phys Func - Score 39 (moderate dysfunction) 41 (mild dysfunction) 36 (moderate dysfunction) Phys Func - Percentile 14% 18% 8% Self-Eff Symptom - Score 43 (Average) - - Self-Eff Symptom - Percentile 24% - - T-scores: mean of general population = 50. 5 points is clinically meaningfully difference Percentiles provide an indication of how the patient's score ranks in relation to the general population. Higher percentile rankings indicate better function/quality of life. 50th percentile is the average of the general population and indicates half of respondents had a worse score. OBJECTIVE MEASURES WITH LEVEL OF FUNCTION: Knee Observations L Knee Presents with: Atrophy LE AROM R LE AROM: WFL L LE AROM: WFL LE Strength L LE Strength: Quad lag observed in sitting R Hip Flexion (L2): 4/5 R Knee Extension (L3): 4+/5 L Hip Flexion (L2): 5/5 L Knee Extension (L3): 3-/5 Functional Strength Functional Strength: Chellenging to perform a STS and needs to use BUE's to assist in order to get out of a chair Gait Gait Observation: Slow yesenia with decreased stability on the LLE. Using a SPC for balance. Education: Education Learning Preferences: Demonstration, Explanation, Performance, Printed Materials Barriers: None Learning/educational needs: Home exercise program, Plan of Care Education Provided: Yes, see treatment interventions for education provided Education Provided To: Patient Education Mode/Type: Explanation/Discussion, Demonstration, Literature/Printed Materials, Performance Response to Education/Teach Back: States/Identifies, Return Demonstration TREATMENT: PT Treatment Interventions: Therapeutic Exercise Evaluation Therapeutic Exercise: 1: Discussed therapy goals, exam findings, purpose of the HEP. Discussed enduring a safe surrounding when squatting at home and to avoid this exercises if it causes increased, lasting pain in the R knee. 2: Squats x 10 Skilled Intervention: Patient was educated in proper exercise technique and purpose for exercises. Skill (more content not included)... [facility] 03-09-2023 History of Presen t illness Narrative Episode Visit Count: 1 Therapist That Will Accept/Oversee The Plan Of Care: Nicholas Sorensen Start of Care Date: 03/09/23 Onset Date: 12/12/22 Plan of Care Certification Date: 03/09/23 Next Certification Due Date: 04/13/23 Patient Identified by Name and Date of : Yes REHABILITATION AND SPORTS THERAPY PHYSICAL THERAPY EVALUATION PLAN OF CARE: Assessment: Donald Mayorga presents with chief complaint of L quad weakness that interferes with stair negotiation, rising from a chair, walking . He presents with impairments in independence in exercise, overall function, and strength. PROMIS (Patient-Reported Outcomes Measurement Information System) scores were reviewed and physical function domain identified as a rehabilitation concern. Prognosis for therapy is Fair due to: clinical presentation, multiple co- morbidities, chronic nature of impairments . Main findings is weakness and a quad lag of the LLE. He will benefit from skilled therapy services to meet the goals established for this plan of care as noted below. Goals for Episode of Care: created on 03/09/23 through 06/01/23 [place] in home exercise program. Increased strength of L quad to 4+/5 or greater for return to PLOF. Normal gait. Reciprocal stair negotiation. Patient Goals: Wants to be able to get up the stairs. Planned Interventions, Frequency, and Duration: Current Frequency: 2x/week Duration: 4 weeks Total Number of Visits Planned: 8 Planned Treatment Interventions: Therapeutic exercise (66374), Neuromuscular re-education (14632), Manual therapy (02029), Therapeutic activities (73119), Self-residential management (22532), Patient/Family/Caregiver Education PLAN FOR NEXT VISIT: Unable to use BFR based on medical history... however pt will reach out to his group fitness manager and another doctor who did a procedure for him in the past to get their opinion. Trial leg press if tolerated. Patient demonstrates good understanding of plan of care and treatment. The above goals and plan of care were discussed and agreed upon by patient/family. SUBJECTIVE: Decreased strength in the LLE. Needs BFR to help with strengthening. Fell back in december of 2020 and eventually was repaired (after 3 weeks). 6 weeks immobilized. Patient Goals: Wants to be able to get up the stairs. Functional Limitations: stair negotiation, rising from a chair, walking Prior Level of Function: Independent without limitations Intake Information: Prescription present Previous Treatment: Physical Therapy Falls Interview: No positive findings with falls interview Pain: Pain Pain Level: 0 ( Not very painful ) Pain Location: Knee - Left PROMIS Scales Higher is Better 03/06/2023 08/08/2022 06/30/2021 Phys Func - Score 39 (moderate dysfunction) 41 (mild dysfunction) 36 (moderate dysfunction) Phys Func - Percentile 14 % 18 % 8 % Self-Eff Symptom - Score 43 (Average) - - Self-Eff Symptom - Percentile 24 % - - T-scores: mean of general population = 50. 5 points is clinically meaningfully difference Percentiles provide an indication of how the patient's score ranks in relation to the general population. Higher percentile rankings indicate better function/quality of life. 50th percentile is the average of the general population and indicates half of respondents had a worse score. OBJECTIVE MEASURES WITH LEVEL OF FUNCTION: Knee Observations L Knee Presents with: Atrophy LE AROM R LE AROM: WFL L LE AROM: WFL LE Strength L LE Strength: Quad lag observed in sitting R Hip Flexion (L2): 4/5 R Knee Extension (L3): 4+/5 L Hip Flexion (L2): 5/5 L Knee Extension (L3): 3-/5 Functional Strength Functional Strength: Chellenging to perform a STS and needs to use BUE's to assist in order to get out of a chair Gait Gait Observation: Slow yesenia with decreased stability on the LLE. Using a SPC for balance. Education: Education Learning Preferences: Demonstration, Explanation, Performance, Printed Materials Barriers: None Learning/educational needs: Home exercise program, Plan of Care Education Provided: Yes, see treatment interventions for education provided Education Provided To: Patient Education Mode/Type: Explanation/Discussion, Demonstration, Literature/Printed Materials, Performance Response to Education/Teach Back: States/Identifies, Return Demonstration TREATMENT: PT Treatment Interventions: Therapeutic Exercise Evaluation Therapeutic Exercise: 1: Discussed therapy goals, exam findings, purpose of the HEP. Discussed enduring a safe surrounding when squatting at home and to avoid this exercises if it causes increased, lasting pain in the R knee. 2: Squats x 10 Skilled Intervention: Patient was educated in proper exercise technique and purpose for exercises. Skilled judgment was used in selection of appropriate interventions. Provided written instruction for home exercise program to facilitate proper performance and compliance. Correct performance of therapeutic exercises was facilitated with verbal cuing. Billing * Evaluation Low Complexity: 1 Unit Therapeutic Exercise Treatment Minutes: 14 Skilled Treatment Time Minutes (timed and untimed codes): 42 Total Session Time (minutes): 42 Session Start Time : 08 Session Stop Time : 844 Nicholas Sorensen PT documented in this encounter [facility] 02-20-2023 Note HNO ID: [id number] Author: Richa Middleton RT(R) Service: Radiology Author Type: Technologist Type: Progress Notes Filed: 02/20/2023 11:28 AM Note Text: Radiology Service Progress Note PATIENT NAME: Donald Mayorga DATE OF SERVICE: February 20, 2023 TIME: 11:21 AM PATIENT IDENTITY VERIFICATION COMPLETED USING TWO (2) IDENTIFIERS: Name and Date of confirmed by patient verbally. FALL SCREENING: Has the patient had 2 falls in the last year or 1 fall with injury or currently using an Ambulatory Assistive Device (Walker, Cane, Wheelchair, Crutches, etc.)? No PATIENT GENDER DATA: Male PATIENT RELEVANT IMPLANT DATA REVIEWED: Not Applicable RADIOLOGY DEPARTMENT: General X-ray: Exam(s) Completed: Chest X-Ray PERIPHERAL IV DATA: Not applicable SIGNED BY: Richa Middleton, RT(R) February 20, 2023 11:21 AM [facility] 02-16-2023 Miscellaneous Notes The following approved medication requests have been transmitted electronically. Requested Prescriptions Signed Prescriptions Disp Refills dicyclomine (BENTYL) 20 mg tablet 30 tablet 1 Sig: Take 1 tablet by mouth four times a day as needed. Joey Mcgrath MD Patient has been identified by name and date of : Yes Requested Prescriptions Pending Prescriptions Disp Refills dicyclomine (BENTYL) 20 mg tablet 30 tablet 5 Sig: Take 1 tablet by mouth four times a day as needed. RX INSTRUCTIONS: Patient aware RX will be sent to pharmacy. No need to notify patient. Camila Ennis LPN documented in this encounter [facility] 01-31-2023 Note HNO ID: [id number] Author: Lyric Cartagena PA-C Service: ? Author Type: Physician Lathe Mechanic Type: Progress Notes Filed: 01/31/2023 12:19 PM Note Text: Patient: Donald Mayorga PCP: Antonio Stewart MD CC: follow up HPI: Donald Mayorga 77 year old former minimal pipe/cigarette smoker with PMH significant for remote eosinophilic fasciitis, GERD, HLD, HTN, BPH, CAD s/p CABG/AVR, Covid 04/2022, and cough variant asthma. Recently admitted to [facility] from 01/03 - 01/05 secondary to RUL pneumonia and rhinovirus. CTA chest demonstrated no pulmonary embolism or arterial dissection. Scattered groundglass opacities in the right upper lobe, nonspecific finding possibly secondary to edema or infectious process. Atherosclerosis. Respiratory panel negative for Covid and flu, positive for rhinovirus. Treated with IV Ceftriaxone and Azithromycin. Discharged home on Doxycycline. Current maintenance therapy consists of Dulera with as needed Albuterol. Today, patient states he is returning to baseline, but not 100%. Cough productive of clear to yellow sputum. No hemoptysis. Wheezing improved. Exertional dyspnea is not an issue. No fevers, chills or night sweats. No lower extremity edema. CXR obtained 01/22 showed hazy opacities overlying right lower lung. Follow up CXR ordered for 1 month. PAST MEDICAL HISTORY Diagnosis Date Anal fissure Aortic stenosis moderate Basal cell carcinoma of forehead 2010 BPH with obstruction/lower urinary tract symptoms Colon polyps Degenerative skin disorder 2003 venous leg ulcers. improved w Trental. Disorder of bone and cartilage, unspecified since 1994 mild -penia at femoral neck only Esophageal reflux Gastroesophageal reflux HLD (hyperlipidemia) HTN (hypertension) Hydrocele 05/21/2011 Personal history of unspecified disease eosinophilc fasciitis [id number]. remission since 1995. 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 Shingles 2010 left facial - treated with antiviral and gabapentin Allergies: Amitriptyline Mental Status Change Augmentin [Amoxicil* Diarrhea, GI Upset Clavulanic Acid Diarrhea Hydromorphone Other: See Comments Comment:[place] very dopey and nauseated Ibuprofen Other: See Comments Comment:ulcer from high doses tiZANidine (ZANAFLEX) 4 mg tablet 1/2 to 1 tab q8h as needed for pain/ spasm doxycycline monohydrate (MONODOX) 100 mg capsule Take 100 mg by mouth twice daily. (Patient not taking: Reported on 01/16/2023) metoprolol tartrate, short acting, (LOPRESSOR) 50 mg tablet Take 1 tablet by mouth every 12 hours. amLODIPine (NORVASC) 5 mg tablet Take 1 tablet by mouth once daily. furosemide (LASIX) 20 mg tablet Take 2 tablets by mouth once daily. rosuvastatin (CRESTOR) 20 mg tablet Take 1 tablet by mouth daily at bedtime. ipratropium bromide (ATROVENT) 42 mcg (0.06 %) nasal spray Use 1 Center in the nose once daily. Lactobacillus acidophilus (PROBIOTIC ORAL) Take by mouth. finasteride (PROSCAR) 5 mg tablet Take 1 tablet by mouth once daily. mometasone-formoterol (DULERA) 100-5 mcg/actuation inhaler Inhale 2 Puffs as instructed twice daily. venlafaxine ER (EFFEXOR XR) 37.5 mg 24 hr capsule Take 1 capsule by mouth once daily. dilTIAZem ointment 2% (CPD) by RECTAL route twice daily. LORazepam (ATIVAN) 0.5 mg Take 1 tablet by mouth three times daily as needed for up to 30 days. acetaminophen (TYLENOL) 500 mg tablet Take 2 tablets by mouth every 6 hours. senna-docusate (SENNA-S) 8.6-50 mg per tablet Take 1 tablet by mouth twice daily. simethicone, chewable (MYLICON) 80 mg chewable tablet Take 1 tablet by mouth four times daily as needed. cholecalciferol, vitamin D3, (VITAMIN D3 ORAL) Take 1 capsule by mouth once daily. aspirin, enteric coated (ASPIRIN, ENTERIC COATED) 81 mg EC tablet Take 81 mg by mouth once daily. Zinc 50 mg tab Take by mouth once daily. Biotin 10,000 mcg cap Take by mouth once daily. docusate sodium (COLACE ORAL) Take by mouth as needed. polyethylene glycol 3350 (MIRALAX, GLYCOLAX) 17 gram/dose powder Take 17 g by mouth as needed. vitamin b complex tab Take 1 tablet by mouth once daily. calcium carbonate/vitamin d3(CALCIUM 600 WITH VITAMIN D3 600 MG (1,500)-200 UNIT TAB) Take one(1) tablet twice daily. CENTRUM TABLET Take one(1) tablet daily. Social History Tobacco Use Smoking status: Former Types: Pipe, Cigarettes Quit date: 11/19/1979 Years since quittin.2 Smokeless tobacco: Never Tobacco comments: quit 30yrs ago. 1 ppd for a few years Vaping Use Vaping Use: Never used Substance Use Topics Alcohol use: Yes Comment: 1 beer daily Drug use: No Family History Problem Relation Age of Onset Cancer Mother uterine GI Mother colon resection for diverticuliti (more content not included)... [facility] 01-31-2023 History of Presen t illness Narrative Images from the original note were not included. Patient: Donald Mayorga PCP: Antonio Stewart MD CC: follow up HPI: Donald Mayorga 77 year old former minimal pipe/cigarette smoker with PMH significant for remote eosinophilic fasciitis, GERD, HLD, HTN, BPH, CAD s/p CABG/AVR, Covid 19 04/2022, and cough variant asthma. Recently admitted to [facility] from 01/03 - 01/05 secondary to RUL pneumonia and rhinovirus. CTA chest demonstrated no pulmonary embolism or arterial dissection. Scattered groundglass opacities in the right upper lobe, nonspecific finding possibly secondary to edema or infectious process. Atherosclerosis. Respiratory panel negative for Covid and flu, positive for rhinovirus. Treated with IV Ceftriaxone and Azithromycin. Discharged home on Doxycycline. Current maintenance therapy consists of Dulera with as needed Albuterol. Today, patient states he is returning to baseline, but not 100%. Cough productive of clear to yellow sputum. No hemoptysis. Wheezing improved. Exertional dyspnea is not an issue. No fevers, chills or night sweats. No lower extremity edema. CXR obtained 01/22 showed hazy opacities overlying right lower lung. Follow up CXR ordered for 1 month. PAST MEDICAL HISTORY Diagnosis Date Anal fissure Aortic stenosis moderate Basal cell carcinoma of forehead 2010 BPH with obstruction/lower urinary tract symptoms Colon polyps Degenerative skin disorder 2003 venous leg ulcers. improved w Trental. Disorder of bone and cartilage, unspecified since 1994 mild -penia at femoral neck only Esophageal reflux Gastroesophageal reflux HLD (hyperlipidemia) HTN (hypertension) Hydrocele 05/21/2011 Personal history of unspecified disease eosinophilc fasciitis [id number]. remission since 1995. 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 Shingles 2010 left facial - treated with antiviral and gabapentin Allergies: Amitriptyline Mental Status Change Augmentin [Amoxicil* Diarrhea, GI Upset Clavulanic Acid Diarrhea Hydromorphone Other: See Comments Comment:[place] very dopey and nauseated Ibuprofen Other: See Comments Comment:ulcer from high doses tiZANidine (ZANAFLEX) 4 mg tablet 1/2 to 1 tab q8h as needed for pain/ spasm doxycycline monohydrate (MONODOX) 100 mg capsule Take 100 mg by mouth twice daily. (Patient not taking: Reported on 01/16/2023) metoprolol tartrate, short acting, (LOPRESSOR) 50 mg tablet Take 1 tablet by mouth every 12 hours. amLODIPine (NORVASC) 5 mg tablet Take 1 tablet by mouth once daily. furosemide (LASIX) 20 mg tablet Take 2 tablets by mouth once daily. rosuvastatin (CRESTOR) 20 mg tablet Take 1 tablet by mouth daily at bedtime. ipratropium bromide (ATROVENT) 42 mcg (0.06 %) nasal spray Use 1 Center in the nose once daily. Lactobacillus acidophilus (PROBIOTIC ORAL) Take by mouth. finasteride (PROSCAR) 5 mg tablet Take 1 tablet by mouth once daily. mometasone-formoterol (DULERA) 100-5 mcg/actuation inhaler Inhale 2 Puffs as instructed twice daily. venlafaxine ER (EFFEXOR XR) 37.5 mg 24 hr capsule Take 1 capsule by mouth once daily. dilTIAZem ointment 2% (CPD) by RECTAL route twice daily. LORazepam (ATIVAN) 0.5 mg Take 1 tablet by mouth three times daily as needed for up to 30 days. acetaminophen (TYLENOL) 500 mg tablet Take 2 tablets by mouth every 6 hours. senna-docusate (SENNA-S) 8.6-50 mg per tablet Take 1 tablet by mouth twice daily. simethicone, chewable (MYLICON) 80 mg chewable tablet Take 1 tablet by mouth four times daily as needed. cholecalciferol, vitamin D3, (VITAMIN D3 ORAL) Take 1 capsule by mouth once daily. aspirin, enteric coated (ASPIRIN, ENTERIC COATED) 81 mg EC tablet Take 81 mg by mouth once daily. Zinc 50 mg tab Take by mouth once daily. Biotin 10,000 mcg cap Take by mouth once daily. docusate sodium (COLACE ORAL) Take by mouth as needed. polyethylene glycol 3350 (MIRALAX, GLYCOLAX) 17 gram/dose powder Take 17 g by mouth as needed. vitamin b complex tab Take 1 tablet by mouth once daily. calcium carbonate/vitamin d3(CALCIUM 600 WITH VITAMIN D3 600 MG (1,500)-200 UNIT TAB) Take one(1) tablet twice daily. CENTRUM TABLET Take one(1) tablet daily. Social History Tobacco Use Smoking status: Former Types: Pipe, Cigarettes Quit date: 11/19/1979 Years since quittin.2 Smokeless tobacco: Never Tobacco comments: quit 30yrs ago. 1 ppd for a few years Vaping Use Vaping Use: Never used Substance Use Topics Alcohol use: Yes Comment: 1 beer daily Drug use: No Family History Problem Relation Age of Onset Cancer Mother uterine GI Mother colon resection for diverticulitis Cancer Father non-melanoma skin ca Diabetes Father around age 50 Ischemic Heart Disease Father bypass at age 70 PAST SURGICAL HISTORY Procedure Laterality Date CLSR ANAL FSTL W/RCT ADVMNT FLAP 1998 COLECTOMY PARTIAL W/ANASTOMOSIS 07/11/2017 For sigmoid volvulus COLONOSCOPY 09/2015 COLONOSCOPY FLX DX W/COLLJ SPEC WHEN PFRMD 10/09/2019 Colonoscopy EXCISION PILONIDAL CYST/SINUS SIMPLE 1972 PAST SURGICAL HISTORY OF 09/2010 Sphincterotomy PAST SURGICAL HISTORY OF 2013 fistulotomy PAST SURGICAL HISTORY OF Right Laser Ablation on veins PAST SURGICAL HISTORY OF 1998 sphincterotomy PAST SURGICAL HISTORY OF 11/2020 CABG/AVR PAST SURGICAL HISTORY OF Left Quadriceps tendon RPLCMT PROST AORTIC VALVE OPEN XCP HOMOGRF/STENT 11/30/2020 I reviewed the past medical history, family history, social history and surgical history with changes noted above and updated in EMR. IMMUNIZATIONS Prevnar 13 - 09/11/2014 Pneumovax 23 - 12/17/2012 Influenza - 01/20/2022 COVID-19 - most recent 09/2022 ROS: General: Generally feels well. No fevers, chills, or night sweats. Appetite good. Eyes, Ears, nose, throat: Rhinorrhea. No post nasal drip, purulent nasal discharge, epistaxis. No hoarseness. Vision stable. Cardiac: No angina, edema, orthopnea. Resp: See HPI. GI: No heartburn, dysphagia. Musculoskeletal: Chronic back pain. Neuro: No headache, focal weakness, tremor. Skin: No new skin changes or rash. Otherwise negative. PHYSICAL EXAMINATION: BP 142/76 Pulse 67 Resp 15 Wt 132 kg (291 lb) SpO2 93% BMI 40.59 kg/m Gen: No acute distress. Cooperative with examination. HEENT: Normocephalic. Sclera, conjunctiva clear. Oral hygeine and dentition good. No thrush. Resp: No stridor, accessory respiratory muscle use, supra-sternal or intercostal retractions. No wheezes, crackles. CV: Regular rythm. Systolic murmur. Radial pulses normal. Abd: Non distended. MSK: No kyphoscoliosis. Ext: Warm and well perfused. No clubbing, cyanosis, edema. Skin: No rash, ecchymoses. Neuro: Mental status normal. Affect normal. No tremor. DATA: PFT, 05/2022 Exhaled nitric oxide ([place]), 05/2022: 18 (normal < 20). CXR, 01/22/2023 IMPRESSION: Questionable hazy opacities overlying the right lower lung. Consider follow-up. COMPARISON: Chest x-ray on 10/12/2021 RESULT: Lines, tubes, and devices: Evidence of aortic valve replacement. Lungs and pleura: There are questionable hazy opacities overlying the right lower lung. Left basilar atelectasis is again demonstrated. No solid mass. No pleural effusions or pneumothorax. Cardiomediastinal silhouette: Stable cardiac silhouette and mediastinal contour. Bones and soft tissues: Status post median sternotomy. The spine shows degenerative changes. CTA chest, 01/03/2023 [facility] [address] [place] [id number] CTA Chest W/WO Contrast MR#: [id number] Acct: [id number] Name: DONALD MAYORGA Rep #: [id number] : 1945 M 77 From: Shannon Beasley MD PCP: Dr. Antonio Stewart MD Status: [facility] ER Study: CTA Chest W/WO Contrast Date of Exam: 01/03/23 Exam# [id number] Ordering Dr: Tray Cortez DO STUDY: CTA CHEST REASON FOR EXAM: Male, 77 years old. Pulmonary embolism RADIATION DOSAGE (If Supplied By Facility): CTDIvol = ( 15.04 ) mGy, DLP = ( 630.88 ) mGycm TECHNIQUE: The examination was performed with the intravenous administration of IV 100mL Isovue-370. Post-processing of the angiographic images was performed, with multiplanar reformation and 3D reconstruction. Individualized dose optimization techniques were used for this CT. COMPARISON: Prior study dated: CT of the abdomen and pelvis dated July 20, 2017 ____ FINDINGS: Motion artifact degrades anatomic detail. There are scattered right upper lobe groundglass opacities. There is minimal left apical and bibasilar scarring and/or atelectasis. Normal enhancement of the main pulmonary artery and right and left pulmonary arteries. Normal enhancement of the bilateral peripheral pulmonary arteries. There is no demonstrated pulmonary embolism. There is atherosclerotic calcification of the aortic arch and descending thoracic aorta. There is no demonstrated aortic dissection.. There are calcifications of the coronary arteries. Sternal cerclage wires are present from a prior sternotomy. There is a prosthetic aortic valve in place. Normal mediastinum. Normal hilar regions. Normal visualized trachea and bronchi. Normal chest wall structures. There are degenerative changes of thoracic spine. Normal visualized upper abdomen. ____ CT/CTA Chest W/WO Contrast IMPRESSION: No demonstrated pulmonary embolism or arterial dissection. Scattered groundglass opacities within the right upper lobe, a nonspecific finding may be secondary to edema and/or an infectious process. Atherosclerosis. Electronically Signed: Shannon Beasley MD at 12:45 EDT , C: Dr. Tray Cortez, DO; Dr. Antonio Stewart MD M[employer] Grid And [employer] Inspector: Signed Kristie ASSESSMENT/PLAN: 1. Pneumonia of right upper lobe due to infectious organism - ICD9: 486, ICD10: J18.9 (primary diagnosis) Symptomatically doing well. CXR with hazy opacities. May have been too early. CXR in 1 month. If not resolved, will proceed with CT chest. 2. Cough variant asthma - ICD9: 493.82, ICD10: J45.991 Continue Dulera with as needed Albuterol. 3. Obesity (BMI 30-39.9) - ICD9: 278.00, ICD10: E66.9 Weight loss advised. Portions of this documentation were copied and pasted from previous office visit notes in order to provide a cohesive continuity of the history. The note has been reviewed and edited and updated as necessary. Lyirc Cartagena PA-C documented in this encounter [facility] 01-24-2023 Note HNO ID: [id number] Author: Antonio Stewart MD Service: ? Author Type: Physician Type: Progress Notes Filed: 01/24/2023 4:42 PM Note Text: Patient presents with: Follow Up HPI: Patient presents today for office visit for follow up for overnight hospital stay. 01/03/2023 presented to [facility] ER with complaint of cough Discharged 01/05/23 Dx with pneumonia. Cxr 01/22/23 still showing some mild haziness on right side. Refers to feeling better but not 100%. Still cough with congestion. Stopped Doxycycline after about a week. 5 days Prednisone completed. Is overall much better. Keflex was added due to sinus congestion. He still had keflex at home. Advised to complete No fever or chills. No shortness of breath. Is usually ok through the day. Has some congestion at night when laying down. Discussed adding some mucinex. No gi issues. His appetite is ok. Component Latest Ref Rng AND Units 01/22/2023 WBC 3.70 - 11.00 k/uL 7.09 RBC 4.20 - 6.00 m/uL 4.73 Hemoglobin 13.0 - 17.0 g/dL 14.2 Hematocrit 39.0 - 51.0 % 44.3 MCV 80.0 - 100.0 fL 93.7 MCH 26.0 - 34.0 pg 30.0 MCHC 30.5 - 36.0 g/dL 32.1 RDW-CV 11.5 - 15.0 % 14.6 Platelet Count 150 - 400 k/uL 172 MPV 9.0 - 12.7 fL 10.3 Neut% % 70.3 Abs Neut (ANC) 1.45 - 7.50 k/uL 4.99 Lymph% % 19.3 Abs Lymph 1.00 - 4.00 k/uL 1.37 Denali% % 7.1 Abs Denali <0.87 k/uL 0.50 Eosin% % 1.6 Abs Eosin <0.46 k/uL 0.11 Baso% % 0.6 Abs Baso <0.11 k/uL 0.04 Immature Gran % % 1.1 IMMATURE GRANS (ABS) <0.10 k/uL 0.08 NRBC /100 WBC 0.0 Absolute nRBC <0.01 k/uL <0.01 DTYPE Auto Glucose 74 - 99 mg/dL 128 (H) BUN 9 - 24 mg/dL 20 Creatinine 0.73 - 1.22 mg/dL 0.88 Sodium 136 - 144 mmol/L 141 Potassium 3.7 - 5.1 mmol/L 3.8 Chloride 97 - 105 mmol/L 101 CO2 22 - 30 mmol/L 28 Anion Gap 9 - 18 mmol/L 12 Calcium 8.5 - 10.2 mg/dL 8.7 eGFR >=60 mL/min/1.73mA? 90 Hemoglobin A1C 4.3 - 5.6 % 5.4 Estimated Average Glucose mg/dL 108 PSA <2.60 ng/mL 1.35 MEDICATIONS: Current Outpatient Medications Medication Sig metoprolol tartrate, short acting, (LOPRESSOR) 50 mg tablet Take 1 tablet by mouth every 12 hours. amLODIPine (NORVASC) 5 mg tablet Take 1 tablet by mouth once daily. furosemide (LASIX) 20 mg tablet Take 2 tablets by mouth once daily. rosuvastatin (CRESTOR) 20 mg tablet Take 1 tablet by mouth daily at bedtime. ipratropium bromide (ATROVENT) 42 mcg (0.06 %) nasal spray Use 1 Center in the nose once daily. Lactobacillus acidophilus (PROBIOTIC ORAL) Take by mouth. finasteride (PROSCAR) 5 mg tablet Take 1 tablet by mouth once daily. mometasone-formoterol (DULERA) 100-5 mcg/actuation inhaler Inhale 2 Puffs as instructed twice daily. venlafaxine ER (EFFEXOR XR) 37.5 mg 24 hr capsule Take 1 capsule by mouth once daily. dilTIAZem ointment 2% (CPD) by RECTAL route twice daily. LORazepam (ATIVAN) 0.5 mg Take 1 tablet by mouth three times daily as needed for up to 30 days. acetaminophen (TYLENOL) 500 mg tablet Take 2 tablets by mouth every 6 hours. senna-docusate (SENNA-S) 8.6-50 mg per tablet Take 1 tablet by mouth twice daily. simethicone, chewable (MYLICON) 80 mg chewable tablet Take 1 tablet by mouth four times daily as needed. cholecalciferol, vitamin D3, (VITAMIN D3 ORAL) Take 1 capsule by mouth once daily. aspirin, enteric coated (ASPIRIN, ENTERIC COATED) 81 mg EC tablet Take 81 mg by mouth once daily. Zinc 50 mg tab Take by mouth once daily. Biotin 10,000 mcg cap Take by mouth once daily. docusate sodium (COLACE ORAL) Take by mouth as needed. polyethylene glycol 3350 (MIRALAX, GLYCOLAX) 17 gram/dose powder Take 17 g by mouth as needed. vitamin b complex tab Take 1 tablet by mouth once daily. calcium carbonate/vitamin d3(CALCIUM 600 WITH VITAMIN D3 600 MG (1,500)-200 UNIT TAB) Take one(1) tablet twice daily. CENTRUM TABLET Take one(1) tablet daily. doxycycline monohydrate (MONODOX) 100 mg capsule Take 100 mg by mouth twice daily. (Patient not taking: Reported on 01/16/2023) No current facility-administered medications for this visit. ALLERGIES: ALLERGIES Allergen Reactions Amitriptyline Mental Status Change Augmentin [Amoxicil* Diarrhea, GI Upset Clavulanic Acid Diarrhea Hydromorphone Other: See Comments [place] very dopey and nauseated Ibuprofen Other: See Comments ulcer from high doses PAST MEDICAL HISTORY Diagnosis Date Anal fissure Aortic stenosis moderate Basal cell carcinoma of forehead 2010 BPH with obstruction/lower urinary tract symptoms Colon polyps Degenerative skin disorder 2003 venous leg ulcers. improved w Trental. 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 Post-operative nausea an (more content not included)... [facility] 01-24-2023 History of Presen t illness Narrative Patient presents with: Follow Up HPI: Patient presents today for office visit for follow up for overnight hospital stay. 01/03/2023 presented to [facility] ER with complaint of cough Discharged 01/05/23 Dx with pneumonia. Cxr 01/22/23 still showing some mild haziness on right side. Refers to feeling better but not 100%. Still cough with congestion. Stopped Doxycycline after about a week. 5 days Prednisone completed. Is overall much better. Keflex was added due to sinus congestion. He still had keflex at home. Advised to complete No fever or chills. No shortness of breath. Is usually ok through the day. Has some congestion at night when laying down. Discussed adding some mucinex. No gi issues. His appetite is ok. Component Latest Ref Rng & Units 01/22/2023 WBC 3.70 - 11.00 k/uL 7.09 RBC 4.20 - 6.00 m/uL 4.73 Hemoglobin 13.0 - 17.0 g/dL 14.2 Hematocrit 39.0 - 51.0 % 44.3 MCV 80.0 - 100.0 fL 93.7 MCH 26.0 - 34.0 pg 30.0 MCHC 30.5 - 36.0 g/dL 32.1 RDW-CV 11.5 - 15.0 % 14.6 Platelet Count 150 - 400 k/uL 172 MPV 9.0 - 12.7 fL 10.3 Neut% % 70.3 Abs Neut (ANC) 1.45 - 7.50 k/uL 4.99 Lymph% % 19.3 Abs Lymph 1.00 - 4.00 k/uL 1.37 Denali% % 7.1 Abs Denali <0.87 k/uL 0.50 Eosin% % 1.6 Abs Eosin <0.46 k/uL 0.11 Baso% % 0.6 Abs Baso <0.11 k/uL 0.04 Immature Gran % % 1.1 IMMATURE GRANS (ABS) <0.10 k/uL 0.08 NRBC /100 WBC 0.0 Absolute nRBC <0.01 k/uL <0.01 DTYPE Auto Glucose 74 - 99 mg/dL 128 (H) BUN 9 - 24 mg/dL 20 Creatinine 0.73 - 1.22 mg/dL 0.88 Sodium 136 - 144 mmol/L 141 Potassium 3.7 - 5.1 mmol/L 3.8 Chloride 97 - 105 mmol/L 101 CO2 22 - 30 mmol/L 28 Anion Gap 9 - 18 mmol/L 12 Calcium 8.5 - 10.2 mg/dL 8.7 eGFR >=60 mL/min/1.73m 90 Hemoglobin A1C 4.3 - 5.6 % 5.4 Estimated Average Glucose mg/dL 108 PSA <2.60 ng/mL 1.35 MEDICATIONS: Current Outpatient Medications Medication Sig metoprolol tartrate, short acting, (LOPRESSOR) 50 mg tablet Take 1 tablet by mouth every 12 hours. amLODIPine (NORVASC) 5 mg tablet Take 1 tablet by mouth once daily. furosemide (LASIX) 20 mg tablet Take 2 tablets by mouth once daily. rosuvastatin (CRESTOR) 20 mg tablet Take 1 tablet by mouth daily at bedtime. ipratropium bromide (ATROVENT) 42 mcg (0.06 %) nasal spray Use 1 Center in the nose once daily. Lactobacillus acidophilus (PROBIOTIC ORAL) Take by mouth. finasteride (PROSCAR) 5 mg tablet Take 1 tablet by mouth once daily. mometasone-formoterol (DULERA) 100-5 mcg/actuation inhaler Inhale 2 Puffs as instructed twice daily. venlafaxine ER (EFFEXOR XR) 37.5 mg 24 hr capsule Take 1 capsule by mouth once daily. dilTIAZem ointment 2% (CPD) by RECTAL route twice daily. LORazepam (ATIVAN) 0.5 mg Take 1 tablet by mouth three times daily as needed for up to 30 days. acetaminophen (TYLENOL) 500 mg tablet Take 2 tablets by mouth every 6 hours. senna-docusate (SENNA-S) 8.6-50 mg per tablet Take 1 tablet by mouth twice daily. simethicone, chewable (MYLICON) 80 mg chewable tablet Take 1 tablet by mouth four times daily as needed. cholecalciferol, vitamin D3, (VITAMIN D3 ORAL) Take 1 capsule by mouth once daily. aspirin, enteric coated (ASPIRIN, ENTERIC COATED) 81 mg EC tablet Take 81 mg by mouth once daily. Zinc 50 mg tab Take by mouth once daily. Biotin 10,000 mcg cap Take by mouth once daily. docusate sodium (COLACE ORAL) Take by mouth as needed. polyethylene glycol 3350 (MIRALAX, GLYCOLAX) 17 gram/dose powder Take 17 g by mouth as needed. vitamin b complex tab Take 1 tablet by mouth once daily. calcium carbonate/vitamin d3(CALCIUM 600 WITH VITAMIN D3 600 MG (1,500)-200 UNIT TAB) Take one(1) tablet twice daily. CENTRUM TABLET Take one(1) tablet daily. doxycycline monohydrate (MONODOX) 100 mg capsule Take 100 mg by mouth twice daily. (Patient not taking: Reported on 01/16/2023) No current facility-administered medications for this visit. ALLERGIES: ALLERGIES Allergen Reactions Amitriptyline Mental Status Change Augmentin [Amoxicil* Diarrhea, GI Upset Clavulanic Acid Diarrhea Hydromorphone Other: See Comments [place] very dopey and nauseated Ibuprofen Other: See Comments ulcer from high doses PAST MEDICAL HISTORY Diagnosis Date Anal fissure Aortic stenosis moderate Basal cell carcinoma of forehead 2010 BPH with obstruction/lower urinary tract symptoms Colon polyps Degenerative skin disorder 2003 venous leg ulcers. improved w Trental. Disorder of bone and cartilage, unspecified since 1994 mild -penia at femoral neck only Esophageal reflux Gastroesophageal reflux HLD (hyperlipidemia) HTN (hypertension) Hydrocele 05/21/2011 Personal history of unspecified disease eosinophilc fasciitis [id number]. remission since 1995. 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 Shingles 2010 left facial - treated with antiviral and gabapentin PAST SURGICAL HISTORY Procedure Laterality Date CLSR ANAL FSTL W/RCT ADVMNT FLAP 1998 COLECTOMY PARTIAL W/ANASTOMOSIS 07/11/2017 For sigmoid volvulus COLONOSCOPY 09/2015 COLONOSCOPY FLX DX W/COLLJ SPEC WHEN PFRMD 10/09/2019 Colonoscopy EXCISION PILONIDAL CYST/SINUS SIMPLE 1972 PAST SURGICAL HISTORY OF 09/2010 Sphincterotomy PAST SURGICAL HISTORY OF 2013 fistulotomy PAST SURGICAL HISTORY OF Right Laser Ablation on veins PAST SURGICAL HISTORY OF 1998 sphincterotomy PAST SURGICAL HISTORY OF 11/2020 CABG/AVR PAST SURGICAL HISTORY OF Left Quadriceps tendon RPLCMT PROST AORTIC VALVE OPEN XCP HOMOGRF/STENT 11/30/2020 FAMILY HISTORY Problem Relation Age of Onset Cancer Mother uterine GI Mother colon resection for diverticulitis Cancer Father non-melanoma skin ca Diabetes Father around age 50 Ischemic Heart Disease Father bypass at age 70 Social History Tobacco Use Smoking status: Former Types: Pipe, Cigarettes Quit date: 11/19/1979 Years since quittin.2 Smokeless tobacco: Never Tobacco comments: quit 30yrs ago. 1 ppd for a few years Vaping Use Vaping Use: Never used Substance Use Topics Alcohol use: Yes Comment: 1 beer daily Drug use: No Reviewed current medications, allergies, past medical history, surgical history, family history and social history today. REVIEW OF SYSTEMS All other reviewed and negative other than HPI. VITALS: BP 126/66 Pulse 84 Ht 180.3 cm (5' 11 ) Wt 131.7 kg (290 lb 6.4 oz) SpO2 94% BMI 40.50 kg/m Last 4 Encounter Wt Readings: Date: Wt: 01/16/2023 131.8 kg (290 lb 9.6 oz) 01/08/2023 130.2 kg (287 lb) 10/06/2022 130.2 kg (287 lb) 08/09/2022 129.3 kg (285 lb) PHYSICAL EXAMINATION: General appearance: Well appearing, alert, in no acute distress, well-hydrated, well nourished. Skin: Skin color, texture, turgor normal, no suspicious rashes or lesions Head: Normocephalic, no masses, lesions, tenderness or abnormalities Lungs: Lungs clear to auscultation. No wheezing, rhonchi, rales Heart: RRR without murmur, gallop, or rubs. No ectopy Abdomen: Normal abdominal exam, Abdomen soft, non-tender. Bowel sounds normal. No masses, organomegaly Extremities: No deformities, edema, skin discoloration, clubbing or cyanosis. Good capillary refill. ASSESSMENT/PLAN: 1. Bacterial pneumonia - ICD9: 482.9, ICD10: J15.9 - overall doing better. Anticipate the xray will clear completely as long as he continues to improve. Finish antibiotic. Recheck xray as ordered in one month. Call if symptoms worsen at all or if not better in one to two weeks - Antonio Stewart MD documented in this encounter [facility] documented as of this encounter (statuses as of 04/09/2023) [facility]09-13-2023 Miscellaneous Notes* Telephone Encounter - Antonio Stewart MD - 01/24/2023 12:11 PM EDT Disregard below. Just saw he is on my schedule for recheck * Telephone Encounter - Juani Douglas PA-C - 01/24/2023 11:53 AM EDT See notes from my visit. Would like to know if he improved with prednisone and Cephalexin. Thanks, Anatoliy Douglas PA-C * Telephone Encounter - Antonio Stewart MD - 01/24/2023 11:51 AM EDT Chest xray still shows some mild haziness on right side. See how feeling. [facility] Miscellaneous Notes* Telephone Encounter - Reina Zamora RN - 01/23/2023 9:38 AM EDT Pt called and is notified of providers results and instructions. Pt voices understanding. Lab was able to add the A1C onto blood already drawn. Reina Zamora RN * Telephone Encounter - Antonio Stewart MD - 01/23/2023 8:38 AM EDT Labs are ok other than sugar being slightly up. Recheck a1c. See if we can add it in. If not, please call and have him come in and draw in a few weeks. [facility] NoteHNO ID: [id number] Author: Rissa Mcelroy RT(R) Service: Radiology Author Type: Technologist Type: Progress Notes Filed: 01/22/2023 10:49 AM Note Text: Radiology Service Progress Note PATIENT NAME: Donald Mayorga DATE OF SERVICE: January 22, 2023 TIME: 10:41 AM PATIENT IDENTITY VERIFICATION COMPLETED USING TWO (2) IDENTIFIERS: Name and Date of confirmed by patient verbally. FALL SCREENING: Has the patient had 2 falls in the last year or 1 fall with injury or currently using an Ambulatory Assistive Device (Walker, Cane, Wheelchair, Crutches, etc.)? No PATIENT GENDER DATA: Male PATIENT RELEVANT IMPLANT DATA REVIEWED: Yes RADIOLOGY DEPARTMENT: General X-ray: Exam(s) Completed: Chest X-Ray PERIPHERAL IV DATA: Not applicable SIGNED BY: RT Diann(R) January 22, 2023 10:41 [facility]09-05-2023 NoteHNO ID: [id number] Author: Juani Douglas PA-C Service: ? Author Type: Physician Lathe Mechanic Type: Progress Notes Filed: 01/24/2023 11:57 AM Note Text: 77 year old male with c/o admitted Hospital discharge summary: Facility [facility] Date of admission 01/04/2023 Date of discharge 01/05/2023 Preadmission Hospital details: 01/03/2023 presented to [facility] ER with complaint of cough onset over 1 day, gradually worsening, alleviated by nothing, productive of yellow sputum, feverish, negative for nasal drip, ear pain, sore throat, chills, sputum. Noted increasing shortness of breath over 24 hours without chest pain. Did have recent travel to [place], also identified his 's been ill recently with upper respiratory symptoms. Vital signs: 97.4 F-96-18-147/64-88% RA which increased to 93% on O2 at 3 L per nasal cannula. Patient was noted to be short of breath on exam, well-hydrated, well developed and in no acute distress. Chest was auscultated for rhonchi throughout. Other exam essentially normal. CBC: WBC 6.3-Hgb 13.2-HCT 40.2-PLT 141 L with differential showing 84.6% neutrophil without increased absolute neutrophils. Chemistries demonstrate normal values except for BUN 19 with normal creatinine at 0.97, EGFR 80. Glucose 139. Calcium normal. Troponin 1 negative. Chest CTA: No demonstrated pulmonary embolism or arterial dissection. Scattered groundglass opacities in the right upper lobe, nonspecific finding possibly secondary to edema or infectious process. Atherosclerosis EKG demonstrated normal sinus rhythm with first-degree AV block, ventricular rate of 81 no injury pattern MDM: Case was reviewed with hospitalist and agreed to admit Admission assessment and plan: 1. Hypoxia, community-acquired pneumonia: Likely viral versus mild bacterial community-acquired pneumonia. Mildly hypoxic. Patient received 1 dose of ceftriaxone and azithromycin IV in the emergency department. We will plan for 5-day course with continued ceftriaxone and azithromycin. Sputum cultures ordered along with respiratory panel. Plan for O2 walk test in the morning. 2. Asthma: Continue home inhalers and breathing treatments every 4 hours as needed 3. BPH: Continue Flomax 4. Coronary artery disease status post CABG, essential hypertension: Continue home aspirin, amlodipine, Lopressor, hold Lasix until followed, consider restarting at discharge 5. Anxiety/depression: Continue venlafaxine and Ativan 3 times a day as needed 6. DVT prophylaxis Lovenox 7. Full code verified Discharge summary: Diagnoses: 1. Pneumonia, community-acquired unspecified organism 2. Hypoxia acute History as previously elicited. Hospital course: Found to have rhinovirus but given infiltrates and productive cough, he is also covered with doxycycline. Patient improved significantly, resolved hypoxia, was up and moving around and felt comfortable to go home. Discharge exam was stable Discharge weight 127.006 kg, BMI 38.0 01/05/2023 Labs: CBC WBC 3.2-Hgb 13.5-HCT 41.9-PLT 126 Chemistry: NA 139-CL 104-K3.4L-CO2 3.0-BUN 18-CRE 0.81-GLU 111 01/03/2023 cultures Sputum expectorated with Gram stain and respiratory culture: Mixed normal myles, no strep pneumoniae, beta-hemolytic Streptococcus or Staphylococcus isolated 01/03/2023 nasal mucosa respiratory panel: Final rhinovirus 01/03/2023 nasal secretion SARS-CoV-2 and flu antigen rapid negative Medication reconciliation: New prescriptions: Doxycycline 100 mg p.o. twice daily x4 days #7/0 Continue prescriptions: Zinc 50 mg tablet daily biotin 10,000 mcg capsule daily Vitamin B complex tablet daily polyethylene glycol 3350 17 g per dose powder 17 g daily as needed Calcium-vitamin D capsule 1 cap daily Adult 50+ probiotic 4 billion culture 1 capsule daily ASA 81 mg daily Vitamin K2 100 mcg capsule daily Metamucil 3.4 g / 5.4 g powder with at least 4 ounces of water or juice daily Dicyclomine 20 mg p.o. twice daily as needed Dulera 100-5 mcg per actuation HFA 2 puffs twice daily Tamsulosin 0.4 mg daily Finasteride 5 mg daily at bedtime Lorazepam 0.5 mg 3 times daily as needed Metoprolol 50 mg tablet p.o. twice daily Amlodipine 5 mg tablet daily Acetaminophen 500 mg every 6 hours as needed Vitamin D3 5000 units daily Centrum men vitamin daily Venlafaxine 37.5 capsule extended release daily Rosuvastatin 20 mg daily, #90/3 Furosemide 40 mg tablet daily, #90/[address] Stewart 01/08/2023: recommended lab and CXR rechecks in 2 weeks. Remains fever free Continue dry cough intermittently, some persistent shortness of breath, persistent white sputum without hemoptysis. Chest feels heavy/ tight like asthma. Denies chest pain, lightheadedness, dyspnea with exertion unless he is really straining, average exercise no problem. No irregular heart rhythms or flutters. Appetite is normal. Moving bowels routi (more content not included)...[facility] 01-16-2023 Instructions* Patient Instructions* Juani Douglas PA-C - 01/16/2023 11:12 AM EDT If symptoms fail to improve in 5-7 days, fever > 100.5F, general worsening: start Cephalexin as prescribed. If you should breakout in a rash, stop the medicine and call the office. Any antibiotic has the potential to cause diarrhea due to alteration in the normal bacterial myles of the gut. This can be reduced by eating yogurt with active cultures daily while on the medication.If diarrhea becomes severe (watery, large volumes or more than 3-4/day) call the office. If you do not like yogurt, ask the pharmacist for a probiotic supplement such as lactobacillus or acidophillus. Women may experience yeast vaginitis due to alteration in the vaginal myles. Symptoms include vaginal itching, irritation, and often a clumpy white discharge. If this occurs, there are several effective over the counter remedies available, including one-dose treatments. If these are unsuccessful, call the office. Antibiotics may interfer with control. If you are on oral contraceptives, use another form of protection (condoms, foams, jellies, diaphragm) throught the end of whatever pill pack you are on in 10 days. Facts About the Common Cold and Upper Respiratory Infection: Common symptoms include: sore throat, tender lymph nodes, low grade fever 99- 101F for first few days, watery nasal drip that progresses to thick yellow-green mucus on blowing and on coughing, facial/sinus pressure, headache, chest tightness and tiredness/ fatigue. Usually they peak with the worst symptoms about 5-7 days and take another 5-7 days to clear, in other words 10-14 days. Occasionally there will be a persistent nagging cough or some residual minor nasal congestion up to several weeks. Viral infections are not susceptible to antibiotics. Due to the critical issues with global antibiotic resistance, we do not prescribe antibiotics if we suspect viral sources. Antibiotics can cause serious complications and therefore should be reserved for only serious infections. Get plenty of rest. Force fluids daily with water and juices. Nasal saline spray may help to keep nose open and moist: 2-3 squirts each side every few hours. This also help to rinse out virus and bacteria causing infection. Cool mist humidifier in room during sleep. May use OTC Tylenol or Ibuprofen as direct for discomfort. For sore throat, warm salt water gargles, Chlorseptic spray, lozenges or other OTC sore throat remedies may help. Decongestants such as plain Sudafed or with expectorant such as Mucinex D may help with nasal stuffiness or facial and sinus pressure. Generics are fine. These are over the counter but require an adult signature. Oxymetolazine nasal decongestants (Afrin, Dristan, Dayo's) may also help (in place of oral decongestants) but should not be used longer than 48-72 hours due to potential rebound congestion. OTC antihistamines such Benadryl (make cause drowsiness) or Zyrtec/ Clariten/ Joanie (non-drowsy) may help watery nasal drainage though they are generally not recommended because they dry mucus and make it sticky. The flow of mucus is important to help your body rid the virus. If cough keeps you awake at night, try OTC remedies first, such as Nyquil, Delsym, Dayo's 44 or Mucinex DM. If this doesn't help you sleep, call the office for a prescription. Be careful if you are combining cough and cold medications that you aren't doubling the medicines. If you aren't sure: ask the pharmacist for help. Cough or sneeze into your sleeve to prevent spread of infected secretions. Wash your hands frequently. Try not to cough or sneeze on surfaces others might touch. Prednisone 40mg daily x 5 days If symptoms fail to improve in 5-7 days, fever > 100.5F, general worsening, or other concerning symptoms, return to [facility] or Antonio Stewart MD. [facility] of Present illness Narrative* Juani Douglas PA-C - 01/16/2023 10:56 AM EDT 77 year old male with c/o admitted Hospital discharge summary: Facility [facility] Date of admission 01/04/2023 Date of discharge 01/05/2023 Preadmission Hospital details: 01/03/2023 presented to [facility] ER with complaint of cough onset over 1 day, gradually worsening, alleviated by nothing, productive of yellow sputum, feverish, negative for nasal drip, ear pain, sore throat, chills, sputum. Noted increasing shortness of breath over 24 hours without chest pain. Did have recent travel to [place], also identified his 's been ill recently with upper respiratory symptoms. Vital signs: 97.4 F-96-18-147/64-88% RA which increased to 93% on O2 at 3 L per nasal cannula. Patient was noted to be short of breath on exam, well-hydrated, well developed and in no acute distress. Chest was auscultated for rhonchi throughout. Other exam essentially normal. CBC: WBC 6.3-Hgb 13.2-HCT 40.2-PLT 141 L with differential showing 84.6% neutrophil without increased absolute neutrophils. Chemistries demonstrate normal values except for BUN 19 with normal creatinine at 0.97, EGFR 80. Glucose 139. Calcium normal. Troponin 1 negative. Chest CTA: No demonstrated pulmonary embolism or arterial dissection. Scattered groundglass opacities in the right upper lobe, nonspecific finding possibly secondary to edema or infectious process. Atherosclerosis EKG demonstrated normal sinus rhythm with first-degree AV block, ventricular rate of 81 no injury pattern MDM: Case was reviewed with hospitalist and agreed to admit Admission assessment and plan: 1. Hypoxia, community-acquired pneumonia: Likely viral versus mild bacterial community-acquired pneumonia. Mildly hypoxic. Patient received 1 dose of ceftriaxone and azithromycin IV in the emergency department. We will plan for 5- day course with continued ceftriaxone and azithromycin. Sputum cultures ordered along with respiratory panel. Plan for O2 walk test in the morning. 2. Asthma: Continue home inhalers and breathing treatments every 4 hours as needed 3. BPH: Continue Flomax 4. Coronary artery disease status post CABG, essential hypertension: Continue home aspirin, amlodipine, Lopressor, hold Lasix until followed, consider restarting at discharge 5. Anxiety/depression: Continue venlafaxine and Ativan 3 times a day as needed 6. DVT prophylaxis Lovenox 7. Full code verified Discharge summary: Diagnoses: 1. Pneumonia, community-acquired unspecified organism 2. Hypoxia acute History as previously elicited. Hospital course: Found to have rhinovirus but given infiltrates and productive cough, he is also covered with doxycycline. Patient improved significantly, resolved hypoxia, was up and moving around and felt comfortable to go home. Discharge exam was stable Discharge weight 127.006 kg, BMI 38.0 01/05/2023 Labs: CBC WBC 3.2-Hgb 13.5-HCT 41.9-PLT 126 Chemistry: NA 139-CL 104-K3.4L-CO2 3.0-BUN 18-CRE 0.81-GLU 111 01/03/2023 cultures Sputum expectorated with Gram stain and respiratory culture: Mixed normal myles, no strep pneumoniae, beta-hemolytic Streptococcus or Staphylococcus isolated 01/03/2023 nasal mucosa respiratory panel: Final rhinovirus 01/03/2023 nasal secretion SARS-CoV-2 and flu antigen rapid negative Medication reconciliation: New prescriptions: Doxycycline 100 mg p.o. twice daily x4 days #7/0 Continue prescriptions: Zinc 50 mg tablet daily biotin 10,000 mcg capsule daily Vitamin B complex tablet daily polyethylene glycol 3350 17 g per dose powder 17 g daily as needed Calcium-vitamin D capsule 1 cap daily Adult 50+ probiotic 4 billion culture 1 capsule daily ASA 81 mg daily Vitamin K2 100 mcg capsule daily Metamucil 3.4 g / 5.4 g powder with at least 4 ounces of water or juice daily Dicyclomine 20 mg p.o. twice daily as needed Dulera 100-5 mcg per actuation HFA 2 puffs twice daily Tamsulosin 0.4 mg daily Finasteride 5 mg daily at bedtime Lorazepam 0.5 mg 3 times daily as needed Metoprolol 50 mg tablet p.o. twice daily Amlodipine 5 mg tablet daily Acetaminophen 500 mg every 6 hours as needed Vitamin D3 5000 units daily Centrum men vitamin daily Venlafaxine 37.5 capsule extended release daily Rosuvastatin 20 mg daily, #90/3 Furosemide 40 mg tablet daily, #90/[address] Stewart 01/08/2023: recommended lab and CXR rechecks in 2 weeks. Remains fever free Continue dry cough intermittently, some persistent shortness of breath, persistent white sputum without hemoptysis. Chest feels heavy/ tight like asthma. Denies chest pain, lightheadedness, dyspnea with exertion unless he is really straining, average exercise no problem. No irregular heart rhythms or flutters. Appetite is normal. Moving bowels routinely, no diarrhea, blood or black or tarry stools. Feels he is essentially back at baseline. HISTORIES FAMILY HISTORY Problem Relation Age of Onset Cancer Mother uterine GI Mother colon resection for diverticulitis Cancer Father non-melanoma skin ca Diabetes Father around age 50 Ischemic Heart Disease Father bypass at age 70 PAST MEDICAL HISTORY Diagnosis Date Anal fissure Aortic stenosis moderate Basal cell carcinoma of forehead 2010 BPH with obstruction/lower urinary tract symptoms Colon polyps Degenerative skin disorder 2003 venous leg ulcers. improved w [place]. 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 Shingles 2010 left facial - treated with antiviral and gabapentin PAST SURGICAL HISTORY Procedure Laterality Date CLSR ANAL FSTL W/RCT ADVMNT FLAP 1998 COLECTOMY PARTIAL W/ANASTOMOSIS 07/11/2017 For sigmoid volvulus COLONOSCOPY 09/2015 COLONOSCOPY FLX DX W/COLLJ SPEC WHEN PFRMD 10/09/2019 Colonoscopy EXCISION PILONIDAL CYST/SINUS SIMPLE 1971 PAST SURGICAL HISTORY OF 09/2010 Sphincterotomy PAST SURGICAL HISTORY OF 2013 fistulotomy PAST SURGICAL HISTORY OF Right Laser Ablation on veins PAST SURGICAL HISTORY OF 1998 sphincterotomy PAST SURGICAL HISTORY OF 11/2020 CABG/AVR PAST SURGICAL HISTORY OF Left Quadriceps tendon RPLCMT PROST AORTIC VALVE OPEN XCP HOMOGRF/STENT 11/30/2020 Social History Tobacco Use Smoking status: Former Types: Pipe, Cigarettes Quit date: 11/19/1979 Years since quittin.1 Smokeless tobacco: Never Tobacco comments: quit 30yrs ago. 1 ppd for a few years Vaping Use Vaping Use: Never used Substance Use Topics Alcohol use: Yes Comment: 1 beer daily Drug use: No ACTIVE PROBLEM LIST DEGENERATIVE SKIN DISORD- NLD Personal History of Diseases of Skin and Subcutaneous Tissue Malignant Neoplasm of Skin Cervicalgia Fissure in Ano Anal Fissure Colon Polyps Cerebral Aneurysm, Nonruptured Hydrocele Levator Spasm Pvd (Peripheral Vascular Disease) ([facility]) Vertigo of Central Origin Hemorrhoids First Degree Av Block Obesity Degeneration of Intervertebral Disc, Site Unspecified Bilateral Inguinal Hernia Without Obstruction Or Gangrene Bph With Obstruction/Lower Urinary Tract Symptoms Esophageal Reflux Anal Or Rectal Pain High-Tone Pelvic Floor Dysfunction History of Rectal Sphincterotomy Overactive Bladder Other Hyperlipidemia S/P Cabg X 3 S/P Avr (Aortic Valve Replacement) Cellulitis Coronary Artery Disease Involving [place] Coronary Artery of [place] Heart Without Angina Pectoris Chronic Diastolic Congestive Heart Failure (Hcc) Paroxysmal Atrial Fibrillation (Hcc) 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 180 tablet 3 amLODIPine (NORVASC) 5 mg tablet Take 1 tablet by mouth once daily. 90 tablet 3 furosemide (LASIX) 20 mg tablet Take 2 tablets by mouth once daily. rosuvastatin (CRESTOR) 20 mg tablet Take 1 tablet by mouth daily at bedtime. 90 tablet 3 ipratropium bromide (ATROVENT) 42 mcg (0.06 %) nasal spray Use 1 Center in the nose once daily. Lactobacillus acidophilus (PROBIOTIC ORAL) Take by mouth. finasteride (PROSCAR) 5 mg tablet Take 1 tablet by mouth once daily. 90 tablet 3 mometasone-formoterol (DULERA) 100-5 mcg/actuation inhaler Inhale 2 Puffs as instructed twice daily. 3 Each 3 venlafaxine ER (EFFEXOR XR) 37.5 mg 24 hr capsule Take 1 capsule by mouth once daily. 90 capsule 3 dilTIAZem ointment 2% (CPD) by RECTAL route twice daily. 30 g 1 LORazepam (ATIVAN) 0.5 mg Take 1 tablet by mouth three times daily as needed for up to 30 days. 30 tablet 0 acetaminophen (TYLENOL) 500 mg tablet Take 2 tablets by mouth every 6 hours. senna-docusate (SENNA-S) 8.6-50 mg per tablet Take 1 tablet by mouth twice daily. simethicone, chewable (MYLICON) 80 mg chewable tablet Take 1 tablet by mouth four times daily as needed. cholecalciferol, vitamin D3, (VITAMIN D3 ORAL) Take 1 capsule by mouth once daily. aspirin, enteric coated (ASPIRIN, ENTERIC COATED) 81 mg EC tablet Take 81 mg by mouth once daily. Zinc 50 mg tab Take by mouth once daily. Biotin 10,000 mcg cap Take by mouth once daily. docusate sodium (COLACE ORAL) Take by mouth as needed. polyethylene glycol 3350 (MIRALAX, GLYCOLAX) 17 gram/dose powder Take 17 g by mouth as needed. vitamin b complex tab Take 1 tablet by mouth once daily. calcium carbonate/vitamin d3(CALCIUM 600 WITH VITAMIN D3 600 MG (1,500)-200 UNIT TAB) Take one(1) tablet twice daily. 0 0 CENTRUM TABLET Take one(1) tablet daily. 0 doxycycline monohydrate (MONODOX) 100 mg capsule Take 100 mg by mouth twice daily. (Patient not taking: Reported on 01/16/2023) No current facility-administered medications for this visit. INFLUENZA(1) due on 01/12/2023 01/22/2023 CXR Questionable hazy opacities overlying the right lower lung. Consider follow-up. EXAM: BP 144/74 Pulse 76 Temp 37 C (98.6 F) Ht 180.3 cm (5' 11 ) Wt 131.8 kg (290 lb 9.6 oz) SpO2 93% BMI 40.53 kg/m Pleasant overweight adult man in no acute distress. Alert and oriented all spheres. Normal affect and cognition. Speech normal. No deficits to learning or comprehension. Skin warm, dry, pink to lips and nailbeds. Normal turgor. Respirations regular and unlabored. HEENT: NCAT. No scleral icterus or conjunctival injection. TM's clear. Nose and oropharynx free from injection or lesion. Oral membranes moist and pink. No cervical lymph nodes. Thyroid non-tender, no masses, or enlargement. Carotids pulses 2+/4+ without bruits. No JVD with HOB at 30 degrees. Chest is normal shape. Lungs are clear to all [place] with good air exchange through out. HRRR without murmur or gallop. No lifts, heaves, or rubs. Abdomen: active bowel sounds throughout, soft, nontender, no masses or organomegaly. No CVAT. Extrem: no clubbing or cyanosis. Edema: none lower legs. . Extremities are warm and pink with prompt capillary refill. Neuro grossly WNL. ASSESSMENT/PLAN: 1. Hospital discharge follow-up - ICD9: V67.59, ICD10: Z09 (primary diagnosis) Completed chart review does, problem list updates, medication reconciliation, and reviewed recommended follow-up which has been completed. 2. Community acquired pneumonia of right upper lobe of lung - ICD9: 486, ICD10: J18.9 Continue cough, congestion, somewhat worse in last few days. SOB with exertion, still tight. Will cover with cephalexin 500mg QID x 7 days with prednisone 40mg daily. Follow up after completion. 3. Hypoxia - ICD9: 799.02, ICD10: R09.02 Clinically resolved 4. Cough variant asthma - ICD9: 493.82, ICD10: J45.991 - Mild intermittent asthma stable - Continue current medications - Avoidance of triggers recommended 5. Coronary artery disease involving [place] coronary artery of [place] heart without angina pectoris- ICD9: 414.01, ICD10: I25.10 6. Chronic diastolic congestive heart failure (HCC) - ICD9: 428.32, 428.0, ICD10: I50.32 7. Paroxysmal atrial fibrillation (HCC) - ICD9: 427.31, ICD10: I48.0 8. S/P CABG x 3 - ICD9: V45.81, ICD10: Z95.1 Currently no ischemic symptoms or chest pain equivalents. 9. Other hyperlipidemia - ICD9: 272.4, ICD10: E78.49 Controlled 10. S/P AVR (aortic valve replacement) - ICD9: V43.3, ICD10: Z95.2 Stable, covered by antibiotics while in hospital. 11. PVD (peripheral vascular disease) (HCC) - ICD9: 443.9, ICD10: I73.9 No current symptoms. Follow-up as scheduled. Recheck CXR 2 weeks Juani Douglas PA-C [facility] NoteHNO ID: [id number] Author: Antonio Stewart MD Service: ? Author Type: Physician Type: Progress Notes Filed: 01/08/2023 2:59 PM Note Text: Patient presents with: Hospital F/U HPI: Patient presents today for office visit for hospital follow up. Admitted into [facility] on 01/03/23 for coughing. Discharged on Sunday01/05/23. Currently no discharge info available. Was hospitalized coughing and and wheezing with minor fever. Was initially hypoxic. Dx with Pneumonia. One more day left of Doxycycline. Doing better but not 100% Noticing he's more fatigued and worn out. Denies chest pain and shortness of breath Still has occasional productive cough. Mainly in the morning. No new or worsening wheezing CT showed right upper lung ground glass infiltrate. Was negative for covid and flu. Was positive for rhinovirus. No shortness of breath. Wheezing is better. Overall tolerating well. Was supplemented with some potassium MEDICATIONS: Current Outpatient Medications Medication Sig doxycycline monohydrate (MONODOX) 100 mg capsule Take 100 mg by mouth twice daily. metoprolol tartrate, short acting, (LOPRESSOR) 50 mg tablet Take 1 tablet by mouth every 12 hours. amLODIPine (NORVASC) 5 mg tablet Take 1 tablet by mouth once daily. furosemide (LASIX) 20 mg tablet Take 2 tablets by mouth once daily. rosuvastatin (CRESTOR) 20 mg tablet Take 1 tablet by mouth daily at bedtime. ipratropium bromide (ATROVENT) 42 mcg (0.06 %) nasal spray Use 1 Center in the nose once daily. Lactobacillus acidophilus (PROBIOTIC ORAL) Take by mouth. finasteride (PROSCAR) 5 mg tablet Take 1 tablet by mouth once daily. mometasone-formoterol (DULERA) 100-5 mcg/actuation inhaler Inhale 2 Puffs as instructed twice daily. venlafaxine ER (EFFEXOR XR) 37.5 mg 24 hr capsule Take 1 capsule by mouth once daily. dilTIAZem ointment 2% (CPD) by RECTAL route twice daily. LORazepam (ATIVAN) 0.5 mg Take 1 tablet by mouth three times daily as needed for up to 30 days. acetaminophen (TYLENOL) 500 mg tablet Take 2 tablets by mouth every 6 hours. senna-docusate (SENNA-S) 8.6-50 mg per tablet Take 1 tablet by mouth twice daily. simethicone, chewable (MYLICON) 80 mg chewable tablet Take 1 tablet by mouth four times daily as needed. cholecalciferol, vitamin D3, (VITAMIN D3 ORAL) Take 1 capsule by mouth once daily. aspirin, enteric coated (ASPIRIN, ENTERIC COATED) 81 mg EC tablet Take 81 mg by mouth once daily. Zinc 50 mg tab Take by mouth once daily. Biotin 10,000 mcg cap Take by mouth once daily. docusate sodium (COLACE ORAL) Take by mouth as needed. polyethylene glycol 3350 (MIRALAX, GLYCOLAX) 17 gram/dose powder Take 17 g by mouth as needed. vitamin b complex tab Take 1 tablet by mouth once daily. calcium carbonate/vitamin d3(CALCIUM 600 WITH VITAMIN D3 600 MG (1,500)-200 UNIT TAB) Take one(1) tablet twice daily. CENTRUM TABLET Take one(1) tablet daily. No current facility-administered medications for this visit. ALLERGIES: ALLERGIES Allergen Reactions Amitriptyline Mental Status Change Augmentin [Amoxicil* Diarrhea, GI Upset Clavulanic Acid Diarrhea Hydromorphone Other: See Comments [place] very dopey and nauseated Ibuprofen Other: See Comments ulcer from high doses PAST MEDICAL HISTORY Diagnosis Date Anal fissure Aortic stenosis moderate Basal cell carcinoma of forehead 2010 BPH with obstruction/lower urinary tract symptoms Colon polyps Degenerative skin disorder 2003 venous leg ulcers. improved w [place]. Disorder of bone and cartilage, unspecified since 1994 mild -penia at femoral neck only Esophageal reflux Gastroesophageal reflux HLD (hyperlipidemia) HTN (hypertension) Hydrocele 05/21/2011 Personal history of unspecified disease eosinophilc fasciitis [id number]. remission since 1995. 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 Shingles 2010 left facial - treated with antiviral and gabapentin PAST SURGICAL HISTORY Procedure Laterality Date CLSR ANAL FSTL W/RCT ADVMNT FLAP 1998 COLECTOMY PARTIAL W/ANASTOMOSIS 07/11/2017 For sigmoid volvulus COLONOSCOPY 09/2015 COLONOSCOPY FLX DX W/COLLJ SPEC WHEN PFRMD 10/09/2019 Colonoscopy EXCISION PILONIDAL CYST/SINUS SIMPLE 1972 PAST SURGICAL HISTORY OF 09/2010 Sphincterotomy PAST SURGICAL HISTORY OF 2013 fistulotomy PAST SURGICAL HISTORY OF Right Laser Ablation on veins PAST SURGICAL HISTORY OF 1998 sphincterotomy PAST SURGICAL HISTORY OF 11/2020 CABG/AVR PAST SURGICAL HISTORY OF Left Quadriceps tendon RPLCMT PROST AORTIC VALVE OPEN XCP HOMOGRF/STENT 11/30/2020 FAMILY HISTORY Problem Relation Age of Onset Cancer Mother uterine GI Mother colon resection for diverticulitis Cancer Father non-melanoma skin ca Diabetes Father around age 50 (more content not included)...[facility]08-28-2023 History of Present illness Narrative* Antonio Stewart MD - 01/08/2023 2:25 PM EDT Patient presents with: Hospital F/U HPI: Patient presents today for office visit for hospital follow up. Admitted into [facility] on 01/03/23 for coughing. Discharged on Sunday01/05/23. Currently no discharge info available. Was hospitalized coughing and and wheezing with minor fever. Was initially hypoxic. Dx with Pneumonia. One more day left of Doxycycline. Doing better but not 100% Noticing he's more fatigued and worn out. Denies chest pain and shortness of breath Still has occasional productive cough. Mainly in the morning. No new or worsening wheezing CT showed right upper lung ground glass infiltrate. Was negative for covid and flu. Was positive for rhinovirus. No shortness of breath. Wheezing is better. Overall tolerating well. Was supplemented with some potassium MEDICATIONS: Current Outpatient Medications Medication Sig doxycycline monohydrate (MONODOX) 100 mg capsule Take 100 mg by mouth twice daily. metoprolol tartrate, short acting, (LOPRESSOR) 50 mg tablet Take 1 tablet by mouth every 12 hours. amLODIPine (NORVASC) 5 mg tablet Take 1 tablet by mouth once daily. furosemide (LASIX) 20 mg tablet Take 2 tablets by mouth once daily. rosuvastatin (CRESTOR) 20 mg tablet Take 1 tablet by mouth daily at bedtime. ipratropium bromide (ATROVENT) 42 mcg (0.06 %) nasal spray Use 1 Center in the nose once daily. Lactobacillus acidophilus (PROBIOTIC ORAL) Take by mouth. finasteride (PROSCAR) 5 mg tablet Take 1 tablet by mouth once daily. mometasone-formoterol (DULERA) 100-5 mcg/actuation inhaler Inhale 2 Puffs as instructed twice daily. venlafaxine ER (EFFEXOR XR) 37.5 mg 24 hr capsule Take 1 capsule by mouth once daily. dilTIAZem ointment 2% (CPD) by RECTAL route twice daily. LORazepam (ATIVAN) 0.5 mg Take 1 tablet by mouth three times daily as needed for up to 30 days. acetaminophen (TYLENOL) 500 mg tablet Take 2 tablets by mouth every 6 hours. senna-docusate (SENNA-S) 8.6-50 mg per tablet Take 1 tablet by mouth twice daily. simethicone, chewable (MYLICON) 80 mg chewable tablet Take 1 tablet by mouth four times daily as needed. cholecalciferol, vitamin D3, (VITAMIN D3 ORAL) Take 1 capsule by mouth once daily. aspirin, enteric coated (ASPIRIN, ENTERIC COATED) 81 mg EC tablet Take 81 mg by mouth once daily. Zinc 50 mg tab Take by mouth once daily. Biotin 10,000 mcg cap Take by mouth once daily. docusate sodium (COLACE ORAL) Take by mouth as needed. polyethylene glycol 3350 (MIRALAX, GLYCOLAX) 17 gram/dose powder Take 17 g by mouth as needed. vitamin b complex tab Take 1 tablet by mouth once daily. calcium carbonate/vitamin d3(CALCIUM 600 WITH VITAMIN D3 600 MG (1,500)-200 UNIT TAB) Take one(1) tablet twice daily. CENTRUM TABLET Take one(1) tablet daily. No current facility-administered medications for this visit. ALLERGIES: ALLERGIES Allergen Reactions Amitriptyline Mental Status Change Augmentin [Amoxicil* Diarrhea, GI Upset Clavulanic Acid Diarrhea Hydromorphone Other: See Comments [place] very dopey and nauseated Ibuprofen Other: See Comments ulcer from high doses PAST MEDICAL HISTORY Diagnosis Date Anal fissure Aortic stenosis moderate Basal cell carcinoma of forehead 2010 BPH with obstruction/lower urinary tract symptoms Colon polyps Degenerative skin disorder 2003 venous leg ulcers. improved w Trental. Disorder of bone and cartilage, unspecified since 1994 mild -penia at femoral neck only Esophageal reflux Gastroesophageal reflux HLD (hyperlipidemia) HTN (hypertension) Hydrocele 05/21/2011 Personal history of unspecified disease eosinophilc fasciitis [id number]. remission since 1995. 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 Shingles 2010 left facial - treated with antiviral and gabapentin PAST SURGICAL HISTORY Procedure Laterality Date CLSR ANAL FSTL W/RCT ADVMNT FLAP 1998 COLECTOMY PARTIAL W/ANASTOMOSIS 07/11/2017 For sigmoid volvulus COLONOSCOPY 09/2015 COLONOSCOPY FLX DX W/COLLJ SPEC WHEN PFRMD 10/09/2019 Colonoscopy EXCISION PILONIDAL CYST/SINUS SIMPLE 1972 PAST SURGICAL HISTORY OF 09/2010 Sphincterotomy PAST SURGICAL HISTORY OF 2013 fistulotomy PAST SURGICAL HISTORY OF Right Laser Ablation on veins PAST SURGICAL HISTORY OF 1998 sphincterotomy PAST SURGICAL HISTORY OF 11/2020 CABG/AVR PAST SURGICAL HISTORY OF Left Quadriceps tendon RPLCMT PROST AORTIC VALVE OPEN XCP HOMOGRF/STENT 11/30/2020 FAMILY HISTORY Problem Relation Age of Onset Cancer Mother uterine GI Mother colon resection for diverticulitis Cancer Father non-melanoma skin ca Diabetes Father around age 50 Ischemic Heart Disease Father bypass at age 70 Social History Tobacco Use Smoking status: Former Types: Pipe, Cigarettes Quit date: 11/19/1979 Years since quittin.1 Smokeless tobacco: Never Tobacco comments: quit 30yrs ago. 1 ppd for a few years Vaping Use Vaping Use: Never used Substance Use Topics Alcohol use: Yes Comment: 1 beer daily Drug use: No Reviewed current medications, allergies, past medical history, surgical history, family history andsocial history today. REVIEW OF SYSTEMS Appetite is fine. No gi issues. All other reviewed and negative other than HPI. HEALTH MAINTENANCE: Reviewed health maintenance issues today and recommended the following in detail. There are no preventive care reminders to display for this patient. VITALS: BP 114/58 Pulse 70 Temp 36.8 C (98.2 F) Ht 180.3 cm (5' 11 ) Wt 130.2 kg (287 lb) SpO2 93% BMI 40.03 kg/m Last 4 Encounter Wt Readings: Date: Wt: 10/06/2022 130.2 kg (287 lb) 08/09/2022 129.3 kg (285 lb) 07/24/2022 128.4 kg (283 lb) 05/29/2022 124.7 kg (275 lb) PHYSICAL EXAMINATION: General appearance: Well appearing, alert, in no acute distress, well-hydrated, well nourished. Skin: Skin color, texture, turgor normal, no suspicious rashes or lesions Lungs: moving air well bilaterally. Some coarse breath sounds. No audible cough. Heart: RRR without murmur, gallop, or rubs. No ectopy Abdomen: Normal abdominal exam, Abdomen soft, non-tender. Bowel sounds normal. No masses, organomegaly Extremities: No deformities, edema, skin discoloration, clubbing or cyanosis. Good capillary refill. ASSESSMENT/PLAN: 1. Pneumonia of right upper lobe due to infectious organism - ICD9: 486, ICD10: J18.9 (primary diagnosis) - recheck xray and labs in two weeks. Red flags for re-assessment reviewed with patient in detail. - call if any issues. 2. Hypokalemia - ICD9: 276.8, ICD10: E87.6 - recheck labs. Antonio Stewart MD documented in this encounterHigh[facility]07-28-2023 Miscellaneous Notes* Telephone Encounter - Horacio Blackwell LPN - 12/08/2022 3:01 PM EDT Patient phones requesting refills as follows: Requested Prescriptions Pending Prescriptions Disp Refills metoprolol tartrate, short acting, (LOPRESSOR) 50 mg tablet 180 tablet 3 Sig: Take 1 tablet by mouth every 12 hours. amLODIPine (NORVASC) 5 mg tablet 90 tablet 3 Sig: Take 1 tablet by mouth once daily. DEL 10/06/22 NOV 04/09/23 Please review and advise. Horacio Blackwell LPN documented in this encounterHighland [facility]07-24-2023 NoteHNO ID: [id number] Author: Paul Prasad MD Service: ? Author Type: Physician Type: Progress Notes Filed: 12/06/2022 3:44 PM Note Text: ESTABLISHED PATIENT OFFICE VISIT PATIENT INFO: Donald Mayorga 77 year old HPI 12/04/2022 CC: bph Voiding issues are stable and he never tried to wean his Flomax of which he gets decreased ejaculation with and remains on Proscar He thinks he will try to wean the Flomax and see how he does off it but the erectile dysfunction issues no longer real concern for him as decreased desire and it sounds like not concerned He remains on Lasix Nocturia x1 and stream is okay and daytime voiding every 1-2 hours without gross hematuria or dysuria Dipstick urine today negative Follow-up 12 months with PSA Scores/PVR: Bladder scan/PVR: IPSS-; QoL-3/6 Past Urology Hx: 12/05/2021 CC: bph Still off his Eliquis and he is interacting with To see if he needs to restart that at some point Erectile dysfunction-cardiology in the past indicated Viagra not be a great idea Voiding issues okay on Flomax and Proscar and does have retrograde ejaculation with Flomax and thinks he will try to wean off that If still needs Flomax he might want to try Uroxatrol Lasix 40 mg only now Stream is good and has history of UroLift as noted below Satisfied with just following up PSA 12 months 04/01/2021 CC: bph Presents with his and since last seen had valve replaced and then fell and tore his left tendon and using a walker now On Eliquis and thinks might be off of it in the future Urine today is clear Can get urge leakage on way to bathroom but not on 80 mg of Lasix Remains on Flomax and Proscar Nocturia 1-2 and stream is okay Discussed program voiding and stay on present medications and he will follow up in 6 months to see how things are going by then 10/08/2020 CC: bph Status post UroLift and decreased frequency so pleased about that but still urges Stream is maybe a little better Remains on his Flomax and Proscar He already failed the Myrbetriq No Viagra per cardiology We will see him back in 6 months to things settle down and he can try for weaning the Flomax if desired 08/10/2020 CC: bph On Flomax and Proscar when saw Antonio Blanche and he refilled him Antonio Mancia's notes had no further Viagra per cardiology as patient has Presents for cystoscopy today which showed visually obstructive prostate as noted below Had seen Dr. Whiteside as noted below in the past and failed antispasmodic medication and even Myrbetriq Urinalysis-negative Patient on Mobic and he knows to stop 1 week prior to planned UroLift as that is how he wants to proceed He can stay on baby aspirin Has some enlargement of scrotum bilaterally and previous CT scan showed some bilateral inguinal hernia down to the scrotum area Urinalysis today-negative July 30, 2020-saw Antonio Mancia- 73 year old male with history of BPH, currently taking Flomax And Proscar States his LUTS are stable and not worsening, he had a trigger point injection with Dr. Potter but did ot seem to help do recommended not to do other [address] potter We discussed having a cystoscopy to evaluate the prostate and bladder , how would like to have this done next week PVR:0 ml February 05, 2019-saw -- 73-year-old male. Chief complaint is that of urgency, urinary frequency and urge incontinence. Patient utilizing Proscar and Flomax. Postvoid residual on bladder scan 43 mL. No longer utilizing Viagra due to aortic stenosis as advised by his group fitness manager. Does use Flexeril, Skelaxin and Effexor for orthopedic issues. Medical issues include PVD, first first-degree AV block, moderate aortic stenosis, and esophageal reflux. Patient's PSA in April of 2018 was 1.56. Day frequency is 12 to 15 times a day associated with urge incontinence, nocturnal frequency appears to be 1 to 2 times a night. He does not have enuresis. He has been treated for the urinary frequency with hyoscyamine which ultimately failed and also Detrol which had no effect whatsoever. I am going to start him on Myrbetriq both 25 and 50 mg. I will consider Botox as a reasonable option for him. Genital examination is normal. Prostate is +/- and nontender. . He is advised of course that with a PSA of 1.56 it is suppressed by finasteride and we will see whether in fact there is any change in that level. Follow up will be on a p.r.n. basis based upon his response to these medications. He will contact me, we will make a decision on how to proceed at that point. DISCHARGE DIAGNOSES: 1. Urge incontinence. 2. Benign prostatic hypertrophy with urinary retention. 3. Overactive bladder refractory to two previous medications. 4. Erectile dysfunction. DICTATED BY: Fabrice Whiteside M.D. RADS/LABS: September 09, 2020-cystoscopy, UroLift August 10, [id number] urethra (more content not included)...[facility]07-24-2023 Instructions* Patient Instructions* Paul Prasad MD - 12/04/2022 9:57 AM EDT INSTRUCTIONS FROM DR. PRASAD: Psa-12 mo You can always try to wean off the Flomax and see how you do documented in this encounterHighland [facility] Hospital07-24-2023 History of Present illness Narrative* Paul Prasad MD - 12/04/2022 9:45 AM EDT ESTABLISHED PATIENT OFFICE VISIT PATIENT INFO: Donald Mayorga 77 year old HPI 12/04/2022 CC: bph Voiding issues are stable and he never tried to wean his Flomax of which he gets decreased ejaculation with and remains on Proscar He thinks he will try to wean the Flomax and see how he does off it but the erectile dysfunction issues no longer real concern for him as decreased desire and it sounds like not concerned He remains on Lasix Nocturia x1 and stream is okay and daytime voiding every 1-2 hours without gross hematuria or dysuria Dipstick urine today negative Follow-up 12 months with PSA Scores/PVR: Bladder scan/PVR: IPSS-; QoL-3/6 Past Urology Hx: 12/05/2021 CC: bph Still off his Eliquis and he is interacting with To see if he needs to restart that at some point Erectile dysfunction-cardiology in the past indicated Viagra not be a great idea Voiding issues okay on Flomax and Proscar and does have retrograde ejaculation with Flomax and thinks he will try to wean off that If still needs Flomax he might want to try Uroxatrol Lasix 40 mg only now Stream is good and has history of UroLift as noted below Satisfied with just following up PSA 12 months 04/01/2021 CC: bph Presents with his and since last seen had valve replaced and then fell and tore his left tendon and using a walker now On Eliquis and thinks might be off of it in the future Urine today is clear Can get urge leakage on way to bathroom but not on 80 mg of Lasix Remains on Flomax and Proscar Nocturia 1-2 and stream is okay Discussed program voiding and stay on present medications and he will follow up in 6 months to see how things are going by then 10/08/2020 CC: bph Status post UroLift and decreased frequency so pleased about that but still urges Stream is maybe a little better Remains on his Flomax and Proscar He already failed the Myrbetriq No Viagra per cardiology We will see him back in 6 months to things settle down and he can try for weaning the Flomax if desired 08/10/2020 CC: bph On Flomax and Proscar when saw Antonio Mancia and he refilled him Antonio Mancia's notes had no further Viagra per cardiology as patient has Presents for cystoscopy today which showed visually obstructive prostate as noted below Had seen Dr. Whiteside as noted below in the past and failed antispasmodic medication and even Myrbetriq Urinalysis-negative Patient on Mobic and he knows to stop 1 week prior to planned UroLift as that is how he wants to proceed He can stay on baby aspirin Has some enlargement of scrotum bilaterally and previous CT scan showed some bilateral inguinal hernia down to the scrotum area Urinalysis today-negative July 30, 2020-saw Antonio Mancia- 73 year old male with history of BPH, currently taking Flomax And Proscar States his LUTS are stable and not worsening, he had a trigger point injection with Dr. Abbey to ot seem to help do recommended not to do other [address] potter We discussed having a cystoscopy to evaluate the prostate and bladder , how would like to have thisdone next week PVR:0 ml February 05, 2019-saw -- 73-year-old male. Chief complaint is that of urgency, urinary frequency and urge incontinence. Patient utilizing Proscar and Flomax. Postvoid residual on bladder scan 43 mL. No longer utilizing Viagra due to aortic stenosis as advised by his group fitness manager. Does use Flexeril, Skelaxin and Effexor for orthopedic issues. Medical issues include PVD, first first-degree AV block, moderate aortic stenosis, and esophageal reflux. Patient's PSA in April of 2018 was 1.56. Day frequency is 12 to 15 times a day associated with urge incontinence, nocturnal frequency appears to be 1 to 2 times a night. He does not have enuresis. He has been treated for the urinary frequency with hyoscyamine which ultimately failed and also Detrol which had no effect whatsoever. I am going to start him on Myrbetriq both 25 and 50 mg. I will consider Botox as a reasonable option for him. Genital examination is normal. Prostate is +/- and nontender. . He is advised of course that with a PSA of 1.56 it is suppressed by finasteride and we will see whether in fact there is any change in that level. Follow up will be on a p.r.n. basis based upon his response to these medications. He will contact me, we will make a decision on how to proceed at that point. DISCHARGE DIAGNOSES: 1. Urge incontinence. 2. Benign prostatic hypertrophy with urinary retention. 3. Overactive bladder refractory to two previous medications. 4. Erectile dysfunction. DICTATED BY: Fabrice Whiteside M.D. RADS/LABS: September 09, 2020-cystoscopy, UroLift August 10, [id number] urethral stricture, mild/moderate trilobar BPH with some rise middle lobe but able to see over it onto the trigone and orifices and with retroflexed scope not really protruding into the bladder and anterior prostate going into bladder a little more in the middle lobe; 1-2+ trabeculation and some residual urine; Suspect prostate volume visualized today and per CAT scanfew years ago about 35 cc December 07, 2017-CT scan of pelvis with IV contrast-moderate enlargement of prostate and moderate bilateral inguinal hernias containing fat which extends into each side of the hemiscrotum Creatinine Date Value Ref Range Status 07/24/2022 0.92 0.73 - 1.22 mg/dL Final PSA (ng/mL) Date Value 11/27/2022 1.38 09/02/2020 1.01 07/28/2020 1.22 07/18/2019 1.91 04/17/2019 1.22 04/19/2018 1.56 04/03/2017 2.49 05/13/2016 3.44 05/13/2016 3.35 Color (no units) Date Value 11/19/2020 Yellow 03/15/2004 Yellow Clarity (no units) Date Value 11/19/2020 Clear 03/15/2004 Clear Glucose, Urine Date Value 11/19/2020 Negative 07/04/2017 neg mg/dL Bilirubin, Urine (no units) Date Value 11/19/2020 Negative 07/04/2017 neg Ketones, Urine (no units) Date Value 11/19/2020 Negative 07/04/2017 neg Specific [place], Ur (no units) Date Value 11/19/2020 1.019 07/04/2017 1.015 Hemoglobin/Blood,Ur (no units) Date Value 11/19/2020 Negative 07/04/2017 neg pH, Urine (no units) Date Value 11/19/2020 5.5 07/04/2017 6.0 Protein, Urine Date Value 11/19/2020 Negative 07/04/2017 neg mg/dL Urobilinogen Date Value 11/19/2020 0.2 EU/dL 03/15/2004 0.2 EU/dL Nitrites (no units) Date Value 11/19/2020 Negative 07/04/2017 neg Leuk Esterase (no units) Date Value 11/19/2020 Negative Review of Systems Constitutional: Negative. HENT: Negative. Eyes: Negative. Respiratory: Negative. Cardiovascular: Negative. Gastrointestinal: Negative. Endocrine: Negative. Genitourinary: See HPI Musculoskeletal: Negative. Skin: Negative. Allergic/Immunologic: Negative. Neurological: Negative. Hematological: Negative. Psychiatric/Behavioral: Negative. I reviewed and confirmed ROS obtained by [facility] HISTORIES PAST MEDICAL HISTORY Diagnosis Date Anal fissure Aortic stenosis moderate Basal cell carcinoma of forehead 2010 BPH with obstruction/lower urinary tract symptoms Colon polyps Degenerative skin disorder 2003 venous leg ulcers. improved w Trental. 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 Shingles 2010 left facial - treated with antiviral and gabapentin FAMILY HISTORY Problem Relation Age of Onset Cancer Mother uterine GI Mother colon resection for diverticulitis Cancer Father non-melanoma skin ca Diabetes Father around age 50 Ischemic Heart Disease Father bypass at age 70 SOCIAL HISTORY Social History Tobacco Use Smoking status: Former Types: Pipe, Cigarettes Quit date: 11/19/1979 Years since quittin.0 Smokeless tobacco: Never Tobacco comments: quit 30yrs ago. 1 ppd for a few years Vaping Use Vaping Use: Never used Substance Use Topics Alcohol use: Yes Comment: 1 beer daily Drug use: No MEDICATIONS: furosemide (LASIX) 20 mg tablet Take 2 tablets by mouth once daily. rosuvastatin (CRESTOR) 20 mg tablet Take 1 tablet by mouth daily at bedtime. rosuvastatin (CRESTOR) 20 mg tablet Take 1 tablet by mouth daily at bedtime. ipratropium bromide (ATROVENT) 42 mcg (0.06 %) nasal spray Use 1 Center in the nose once daily. Lactobacillus acidophilus (PROBIOTIC ORAL) Take by mouth. finasteride (PROSCAR) 5 mg tablet Take 1 tablet by mouth once daily. mometasone-formoterol (DULERA) 100-5 mcg/actuation inhaler Inhale 2 Puffs as instructed twice daily. venlafaxine ER (EFFEXOR XR) 37.5 mg 24 hr capsule Take 1 capsule by mouth once daily. LORazepam (ATIVAN) 0.5 mg Take 1 tablet by mouth three times daily as needed for up to 30 days. metoprolol tartrate, short acting, (LOPRESSOR) 50 mg tablet Take 1 tablet by mouth every 12 hours. amLODIPine (NORVASC) 5 mg tablet Take 1 tablet by mouth once daily. tamsulosin (FLOMAX) 0.4 mg TAKE 1 CAPSULE BY MOUTH EVERY DAY acetaminophen (TYLENOL) 500 mg tablet Take 2 tablets by mouth every 6 hours. senna-docusate (SENNA-S) 8.6-50 mg per tablet Take 1 tablet by mouth twice daily. simethicone, chewable (MYLICON) 80 mg chewable tablet Take 1 tablet by mouth four times daily as needed. cholecalciferol, vitamin D3, (VITAMIN D3 ORAL) Take 1 capsule by mouth once daily. aspirin, enteric coated (ASPIRIN, ENTERIC COATED) 81 mg EC tablet Take 81 mg by mouth once daily. Zinc 50 mg tab Take by mouth once daily. Biotin 10,000 mcg cap Take by mouth once daily. docusate sodium (COLACE ORAL) Take by mouth as needed. polyethylene glycol 3350 (MIRALAX, GLYCOLAX) 17 gram/dose powder Take 17 g by mouth as needed. vitamin b complex tab Take 1 tablet by mouth once daily. calcium carbonate/vitamin d3(CALCIUM 600 WITH VITAMIN D3 600 MG (1,500)-200 UNIT TAB) Take one(1) tablet twice daily. CENTRUM TABLET Take one(1) tablet daily. tamsulosin (FLOMAX) 0.4 mg Take 1 capsule by mouth once daily. 30 minutes after the same meal each day. dilTIAZem ointment 2% (CPD) by RECTAL route twice daily. tiZANidine (ZANAFLEX) 4 mg tablet 1/2 to 1 tab q8h as needed for pain/ spasm (Patient not taking: No sig reported) melatonin 3 mg tablet Take 1 tablet by mouth at bedtime as needed for for insomnia. (Patient not taking: Reported on 12/04/2022) Physical Exam HENT: Head: Normocephalic and atraumatic. Nose: Nose normal. Neck: Trachea: No tracheal deviation. Pulmonary: Effort: Pulmonary effort is normal. No respiratory distress. Genitourinary: Comments: Prostate-1.5+, no nodule Musculoskeletal: General: No deformity. Comments: cane Skin: General: Skin is warm. Neurological: Mental Status: He is alert and oriented to person, place, and time. Gait: Gait is intact. Psychiatric: Mood and Affect: Mood and affect normal. Cognition and Memory: Memory normal. Risk/Benefit Discussion: FOLLOW UP (1s&1w; 3s): Return in about 1 year (around 12/05/2023) for psa-12 mo. ASSESSMENT/PLAN: 1. BPH with obstruction/lower urinary tract symptoms - ICD9: 600.01, 599.69, ICD10: N40.1, N13.8 (primary diagnosis) - PSA/PROSTSPECAG DIAG 2. Urinary frequency - ICD9: 788.41, ICD10: R35.0 3. Urgency of urination - ICD9: 788.63, ICD10: R39.15 4. ED (erectile dysfunction) of organic origin - ICD9: 607.84, ICD10: N52.9 Paul Prasad Please note: This note has been produced using speech recognition software and may contain errors related to that system including grammar, punctuation, spelling, gender and words and phrases that may be inappropriate. documented in this encounterHigh[facility]06-14-2023 Miscellaneous Notes* Telephone Encounter - Antonio Mancai PA-C - 10/25/2022 8:50 PM EDT This was sent to [facility] August 2022 for 1 yr refill JUAN [place], [place], [place] Date and Time Department Ordering/Authorizing 08/31/2022 11:48 AM [facility] [place] Paul Prasad MD Order Providers Prescribing Provider Encounter Provider MD Paul Alcazar MD Outpatient Medication Detail Disp Refills Start End tamsulosin (FLOMAX) 0.4 mg 90 capsule 3 08/31/2022 Sig: Take 1 capsule by mouth once daily. 30 minutes after the same meal each day. Sent to pharmacy as: tamsulosin (FLOMAX) 0.4 mg Class: Normal Route: ORAL Order: [id number] E-Prescribing Status: Receipt confirmed by pharmacy (08/31/2022 11:48 AM EDT) Administration Details suggestion The administrations shown are only for this specific order and not for other orders for the same medication that may be in this encounter. No Administrations Recorded Order History Outpatient Date/Time Action Taken User Additional Information 08/31/22 1018 Pend Amber [facility] 08/31/22 1148 Sign Paul Prasad MD 10/06/22 1039 Taking Flag Checked Camila Augustinekle ART DIRECTOR Associated Diagnoses Benign prostatic hyperplasia (BPH) with urinary urgency [N40.1, R39.15] - Primary Pharmacy E- [facility] [place] [place] [address] - [address] [facility] - [phone] documented in this encounterHighland District Hospital05-26-2023 NoteHNO ID: [id number] Author: Antonio Stewart MD Service: ? Author Type: Physician Type: Progress Notes Filed: 10/06/2022 11:05 AM Note Text: Patient presents with: Follow Up HPI: Patient presents today for office visit for follow up. Would like results of BMD test. Normal bone density of the lumbar spine, increased 11.2%. Normal bone density of the left hip, decreased 1.6%. Normal bone density of the right hip, decreased 0.8%. HTN: Patient is compliant with meds Yes Monitors bp at home: No. Denies side effects: Yes. Chest pain: No. Dyspnea: No. Edema: No. Would like to discuss lasix dosing. Palpitations: No. Syncope: No. Headache: No. Dizziness: No. Still seeing cardiology and dermatology. Did have a basal cell removed in May. Seeing rheumatology as well. No new issues. Sees pulmonary as well. Up to date on [employer] testing. No myalgias. Emotionally is overall doing well. Some of it is not being able to do what he used to do. No gu issues. Oarrs done. Does not use lorazepam often. Not wheezing as much. Component Latest Ref Rng AND Units 07/24/2022 09/28/2022 Protein, Total 6.3 - 8.0 g/dL 7.0 Albumin 3.9 - 4.9 g/dL 4.4 Calcium 8.5 - 10.2 mg/dL 9.2 Bilirubin, Total 0.2 - 1.3 mg/dL 0.3 Alkaline Phosphatase 38 - 113 U/L 59 AST 14 - 40 U/L 29 ALT 10 - 54 U/L 37 Glucose 74 - 99 mg/dL 100 (H) BUN 9 - 24 mg/dL 20 Creatinine 0.73 - 1.22 mg/dL 0.92 Sodium 136 - 144 mmol/L 136 Potassium 3.7 - 5.1 mmol/L 4.2 Chloride 97 - 105 mmol/L 99 CO2 22 - 30 mmol/L 28 Anion Gap 9 - 18 mmol/L 9 eGFR >=60 mL/min/1.73mA? 87 WBC 3.70 - 11.00 k/uL 6.03 RBC 4.20 - 6.00 m/uL 4.56 Hemoglobin 13.0 - 17.0 g/dL 14.2 Hematocrit 39.0 - 51.0 % 41.6 MCV 80.0 - 100.0 fL 91.2 MCH 26.0 - 34.0 pg 31.1 MCHC 30.5 - 36.0 g/dL 34.1 RDW-CV 11.5 - 15.0 % 14.1 Platelet Count 150 - 400 k/uL 136 (L) MPV 9.0 - 12.7 fL 10.3 Absolute nRBC <0.01 k/uL <0.01 Cholesterol, Total <200 mg/dL 131 Triglyceride <150 mg/dL 86 HDL Cholesterol >39 mg/dL 46 Non HDL Cholesterol <130 mg/dL 85 Fasting Time hrs 10 VLDL Cholesterol <30 mg/dL 17 TC:HDL Ratio <5.10 2.85 LDL Cholesterol <100 mg/dL 68 LDL:HDL Ratio <2.54 1.48 TSH 0.270 - 4.200 mIU/L 2.000 Magnesium 1.7 - 2.3 mg/dL 2.2 WSR 0 - 15 mm/hr 16 (H) CRP <0.9 mg/dL <0.3 CK 51 - 298 U/L 134 MEDICATIONS: Current Outpatient Medications Medication Sig rosuvastatin (CRESTOR) 20 mg tablet Take 1 tablet by mouth daily at bedtime. tamsulosin (FLOMAX) 0.4 mg Take 1 capsule by mouth once daily. 30 minutes after the same meal each day. ipratropium bromide (ATROVENT) 42 mcg (0.06 %) nasal spray Use 1 Center in the nose once daily. Lactobacillus acidophilus (PROBIOTIC ORAL) Take by mouth. finasteride (PROSCAR) 5 mg tablet Take 1 tablet by mouth once daily. mometasone-formoterol (DULERA) 100-5 mcg/actuation inhaler Inhale 2 Puffs as instructed twice daily. venlafaxine ER (EFFEXOR XR) 37.5 mg 24 hr capsule Take 1 capsule by mouth once daily. dilTIAZem ointment 2% (CPD) by RECTAL route twice daily. metoprolol tartrate, short acting, (LOPRESSOR) 50 mg tablet Take 1 tablet by mouth every 12 hours. amLODIPine (NORVASC) 5 mg tablet Take 1 tablet by mouth once daily. furosemide (LASIX) 20 mg tablet Take 1 tablet by mouth once daily. (Patient taking differently: Take 40 mg by mouth once daily.) melatonin 3 mg tablet Take 1 tablet by mouth at bedtime as needed for for insomnia. cholecalciferol, vitamin D3, (VITAMIN D3 ORAL) Take 1 capsule by mouth once daily. aspirin, enteric coated (ASPIRIN, ENTERIC COATED) 81 mg EC tablet Take 81 mg by mouth once daily. Zinc 50 mg tab Take by mouth once daily. Biotin 10,000 mcg cap Take by mouth once daily. vitamin b complex tab Take 1 tablet by mouth once daily. calcium carbonate/vitamin d3(CALCIUM 600 WITH VITAMIN D3 600 MG (1,500)-200 UNIT TAB) Take one(1) tablet twice daily. CENTRUM TABLET Take one(1) tablet daily. rosuvastatin (CRESTOR) 20 mg tablet Take 1 tablet by mouth daily at bedtime. LORazepam (ATIVAN) 0.5 mg Take 1 tablet by mouth three times daily as needed for up to 30 days. tiZANidine (ZANAFLEX) 4 mg tablet 1/2 to 1 tab q8h as needed for pain/ spasm (Patient not taking: No sig reported) tamsulosin (FLOMAX) 0.4 mg TAKE 1 CAPSULE BY MOUTH EVERY DAY acetaminophen (TYLENOL) 500 mg tablet Take 2 tablets by mouth every 6 hours. senna-docusate (SENNA-S) 8.6-50 mg per tablet Take 1 tablet by mouth twice daily. simethicone, chewable (MYLICON) 80 mg chewable tablet Take 1 tablet by mouth four times daily as needed. docusate sodium (COLACE ORAL) Take by mouth as needed. polyethylene glycol 3350 (MIRALAX, GLYCOLAX) 17 gram/dose powder Take 17 g by mouth as needed. No current facility-administered medications for this visit. ALLERGIES: ALLERGIES Allergen Reactions Amitriptyline Mental Status Change Augmentin [Amoxicil* Diarrhea, GI Upset Clavulanic Acid Melina (more content not included)...[facility] 10-04-2022 NoteHNO ID: [id number] Author: RT Tia(Samia) Service: ? Author Type: Technologist Type: Progress Notes Filed: 10/04/2022 12:40 PM Note Text: Radiology Service Progress Note PATIENT NAME: Donald Mayorga DATE OF SERVICE: October 04, 2022 TIME: 12:27 PM PATIENT IDENTITY VERIFICATION COMPLETED USING TWO (2) IDENTIFIERS: Name and Date of confirmed by patient verbally. FALL SCREENING: Has the patient had 2 falls in the last year or 1 fall with injury or currently using an Ambulatory Assistive Device (Walker, Cane, Wheelchair, Crutches, etc.)? No PATIENT GENDER DATA: Male PATIENT RELEVANT IMPLANT DATA REVIEWED: Not Applicable RADIOLOGY DEPARTMENT: Bone Density PERIPHERAL IV DATA: Not applicable SIGNED BY: RT Tia(Samia) October 04, 2022 12:27 [facility] of Present illness Narrative* Kurt Hook RT(R) - 10/04/2022 12:30 PM EDT Radiology Service Progress Note PATIENT NAME: Donald Mayorga DATE OF SERVICE: October 04, 2022 TIME: 12:27 PM PATIENT IDENTITY VERIFICATION COMPLETED USING TWO (2) IDENTIFIERS: Name and Date of confirmedby patient verbally. FALL SCREENING: Has the patient had 2 falls in the last year or 1 fall with injury or currently using an Ambulatory Assistive Device (Walker, Cane, Wheelchair, Crutches, etc.)? No PATIENT GENDER DATA: Male PATIENT RELEVANT IMPLANT DATA REVIEWED: Not Applicable RADIOLOGY DEPARTMENT: Bone Density PERIPHERAL IV DATA: Not applicable SIGNED BY: RT Tia(Samia) October 04, 2022 12:27 PM documented [facility] Miscellaneous Notes* Telephone Encounter - Amber Wood Cma - 08/31/2022 10:16 AM EDT Pharmacy faxed requesting the following refill. Requested Prescriptions Pending Prescriptions Disp Refills tamsulosin (FLOMAX) 0.4 mg 90 capsule 3 Sig: Take 1 capsule by mouth once daily. 30 minutes after the same meal each day. Patient last appointment: Visit date not found Patient Phone numbers: [phone] (home) Request is for script(s) to be escript to pharmacy. Amber Wood Cma documented in this encounterHigh[facility]03-29-2023 NoteHNO ID: [id number] Author: Steven Rojas MD Service: ? Author Type: Physician Type: Progress Notes Filed: 08/09/2022 10:51 AM Note Text: On 08/09/2022, I had the pleasure of seeing Donald Mayorga at the [facility] for follow-up of eosinophilic fasciitis. HPI: To review, Donald Mayorga is a 76 year old male - In , diagnosed with biopsy proven eosinophilic fasciitis (biopsy done from wrist), by back end web developer Dr. Hill (in shoulders, wrists, hands and knees). Presented with joint pain (wrists, fingers, knees) and minor hand swelling. Treated long-term with HCQ and prednisone. These were eventually discontinued. - Since , in remission. Later seen by Dr. Ruiz. Labs with +MACARENA and +SSA. No evidence for active autoimmune CTD - Hx of osteopenia, treated with fosamax for 10-13 years discontinued in - In September, seen by Dr. Rodriguez. With knee pain attributed to patellofemoral syndrome. No improvement with steroid or euflexxa infections. Advised to continue meloxicam every other day. - May MRI R knee with torn meniscus, quadriceps tendon tear. Was advised by ortho to do injections - In Jun, reported continuing to do bilateral RANDALL knee injections via [place] [facility]. Had done PT for the knees in the past. - In summer, evaluation for possible TAVR for found to have multi-vessel CAD s/p CABG. Then fell and hurt himself with torn L quad muscle tendon, undergoing PT x2/week, hour each time. Unable to do cardiac rehab. Meloxicam stopped. - In Jun, reported increased knee pain - Today, reports continued knee pain worse on right. Worse with activity, steps etc - Going to start PT for the knee soon, hadn't been doing the home exercises beforehand. - Has tried voltaren gel which provides relief at the time. - [facility] Hx of CAD too. PAST MEDICAL HISTORY Diagnosis Date Anal fissure Aortic stenosis moderate Basal cell carcinoma of forehead 2010 BPH with obstruction/lower urinary tract symptoms Colon polyps Degenerative skin disorder 2003 venous leg ulcers. improved w Trental. Disorder of bone and cartilage, unspecified since 1994 mild -penia at femoral neck only Esophageal reflux Gastroesophageal reflux HLD (hyperlipidemia) HTN (hypertension) Hydrocele 05/21/2011 Personal history of unspecified disease eosinophilc fasciitis [id number]. remission since 1995. 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 Shingles 2010 left facial - treated with antiviral and gabapentin PAST SURGICAL HISTORY Procedure Laterality Date CLSR ANAL FSTL W/RCT ADVMNT FLAP 1998 COLECTOMY PARTIAL W/ANASTOMOSIS 07/11/2017 For sigmoid volvulus COLONOSCOPY 09/2015 COLONOSCOPY FLX DX W/COLLJ SPEC WHEN PFRMD 10/09/2019 Colonoscopy EXCISION PILONIDAL CYST/SINUS SIMPLE 1972 PAST SURGICAL HISTORY OF 09/2010 Sphincterotomy PAST SURGICAL HISTORY OF 2013 fistulotomy PAST SURGICAL HISTORY OF Right Laser Ablation on veins PAST SURGICAL HISTORY OF 1998 sphincterotomy PAST SURGICAL HISTORY OF 11/2020 CABG/AVR PAST SURGICAL HISTORY OF Left Quadriceps tendon RPLCMT PROST AORTIC VALVE OPEN XCP HOMOGRF/STENT 11/30/2020 ALLERGIES Allergen Reactions Amitriptyline Mental Status Change Augmentin [Amoxicil* Diarrhea, GI Upset Clavulanic Acid Diarrhea Hydromorphone Other: See Comments [place] very dopey and nauseated Ibuprofen Other: See Comments ulcer from high doses MEDICATIONS: Current Outpatient Medications Medication Sig ipratropium bromide (ATROVENT) 42 mcg (0.06 %) nasal spray Use 1 Center in the nose once daily. Lactobacillus acidophilus (PROBIOTIC ORAL) Take by mouth. finasteride (PROSCAR) 5 mg tablet Take 1 tablet by mouth once daily. mometasone-formoterol (DULERA) 100-5 mcg/actuation inhaler Inhale 2 Puffs as instructed twice daily. venlafaxine ER (EFFEXOR XR) 37.5 mg 24 hr capsule Take 1 capsule by mouth once daily. dilTIAZem ointment 2% (CPD) by RECTAL route twice daily. LORazepam (ATIVAN) 0.5 mg Take 1 tablet by mouth three times daily as needed for up to 30 days. metoprolol tartrate, short acting, (LOPRESSOR) 50 mg tablet Take 1 tablet by mouth every 12 hours. amLODIPine (NORVASC) 5 mg tablet Take 1 tablet by mouth once daily. furosemide (LASIX) 20 mg tablet Take 1 tablet by mouth once daily. (Patient taking differently: Take 40 mg by mouth once daily.) tamsulosin (FLOMAX) 0.4 mg TAKE 1 CAPSULE BY MOUTH EVERY DAY rosuvastatin (CRESTOR) 20 mg tablet TAKE 1 TABLET BY MOUTH EVERYDAY AT BEDTIME acetaminophen (TYLENOL) 500 mg tablet Take 2 tablets by mouth every 6 hours. melatonin 3 mg tablet Take 1 tablet by mouth at bedtime as needed for for insomnia. senna-docusate (SENNA-S) 8.6-50 mg per tablet Take 1 tablet by (more content not included)...[facility]03-29-2023 History of Present illness Narrative* Steven Rojas MD - 08/09/2022 10:36 AM EDT On 08/09/2022, I had the pleasure of seeing Donald Mayorga at the [facility] for follow-up of eosinophilic fasciitis. HPI: To review, Donald Mayorga is a 76 year old male - In , diagnosed with biopsy proven eosinophilic fasciitis (biopsy done from wrist), by back end web developer Dr. Hill (in shoulders, wrists, hands and knees). Presented with joint pain (wrists, fingers, knees) and minor hand swelling. Treated long-term with HCQ and prednisone. These were eventually discontinued. - Since , in remission. Later seen by Dr. Ruiz. Labs with +MACARENA and +SSA. No evidence for active autoimmune CTD - Hx of osteopenia, treated with fosamax for 10-13 years discontinued in - In September, seen by Dr. Rodriguez. With knee pain attributed to patellofemoral syndrome. No improvement with steroid or euflexxa infections. Advised to continue meloxicam every other day. - May MRI R knee with torn meniscus, quadriceps tendon tear. Was advised by ortho to do injections - In Jun, reported continuing to do bilateral RANDALL knee injections via [place] [facility]. Had done PTfor the knees in the past. - In summer, evaluation for possible TAVR for found to have multi-vessel CAD s/p CABG. Then fell and hurt himself with torn L quad muscle tendon, undergoing PT x2/week, hour each time. Unable to do cardiac rehab. Meloxicam stopped. - In Jun, reported increased knee pain - Today, reports continued knee pain worse on right. Worse with activity, steps etc - Going to start PT for the knee soon, hadn't been doing the home exercises beforehand. - Has tried voltaren gel which provides relief at the time. - [facility]. Hx of CAD too. PAST MEDICAL HISTORY Diagnosis Date Anal fissure Aortic stenosis moderate Basal cell carcinoma of forehead 2010 BPH with obstruction/lower urinary tract symptoms Colon polyps Degenerative skin disorder 2003 venous leg ulcers. improved w Trental. Disorder of bone and cartilage, unspecified since 1994 mild -penia at femoral neck only Esophageal reflux Gastroesophageal reflux HLD (hyperlipidemia) HTN (hypertension) Hydrocele 05/21/2011 Personal history of unspecified disease eosinophilc fasciitis [id number]. remission since 1995. 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 Shingles 2010 left facial - treated with antiviral and gabapentin PAST SURGICAL HISTORY Procedure Laterality Date CLSR ANAL FSTL W/RCT ADVMNT FLAP 1998 COLECTOMY PARTIAL W/ANASTOMOSIS 07/11/2017 For sigmoid volvulus COLONOSCOPY 09/2015 COLONOSCOPY FLX DX W/COLLJ SPEC WHEN PFRMD 10/09/2019 Colonoscopy EXCISION PILONIDAL CYST/SINUS SIMPLE 1972 PAST SURGICAL HISTORY OF 09/2010 Sphincterotomy PAST SURGICAL HISTORY OF 2014 fistulotomy PAST SURGICAL HISTORY OF Right Laser Ablation on veins PAST SURGICAL HISTORY OF 1998 sphincterotomy PAST SURGICAL HISTORY OF 11/2020 CABG/AVR PAST SURGICAL HISTORY OF Left Quadriceps tendon RPLCMT PROST AORTIC VALVE OPEN XCP HOMOGRF/STENT 11/30/2020 ALLERGIES Allergen Reactions Amitriptyline Mental Status Change Augmentin [Amoxicil* Diarrhea, GI Upset Clavulanic Acid Diarrhea Hydromorphone Other: See Comments [place] very dopey and nauseated Ibuprofen Other: See Comments ulcer from high doses MEDICATIONS: Current Outpatient Medications Medication Sig ipratropium bromide (ATROVENT) 42 mcg (0.06 %) nasal spray Use 1 Center in the nose once daily. Lactobacillus acidophilus (PROBIOTIC ORAL) Take by mouth. finasteride (PROSCAR) 5 mg tablet Take 1 tablet by mouth once daily. mometasone-formoterol (DULERA) 100-5 mcg/actuation inhaler Inhale 2 Puffs as instructed twice daily. venlafaxine ER (EFFEXOR XR) 37.5 mg 24 hr capsule Take 1 capsule by mouth once daily. dilTIAZem ointment 2% (CPD) by RECTAL route twice daily. LORazepam (ATIVAN) 0.5 mg Take 1 tablet by mouth three times daily as needed for up to 30 days. metoprolol tartrate, short acting, (LOPRESSOR) 50 mg tablet Take 1 tablet by mouth every 12 hours. amLODIPine (NORVASC) 5 mg tablet Take 1 tablet by mouth once daily. furosemide (LASIX) 20 mg tablet Take 1 tablet by mouth once daily. (Patient taking differently: Take 40 mg by mouth once daily.) tamsulosin (FLOMAX) 0.4 mg TAKE 1 CAPSULE BY MOUTH EVERY DAY rosuvastatin (CRESTOR) 20 mg tablet TAKE 1 TABLET BY MOUTH EVERYDAY AT BEDTIME acetaminophen (TYLENOL) 500 mg tablet Take 2 tablets by mouth every 6 hours. melatonin 3 mg tablet Take 1 tablet by mouth at bedtime as needed for for insomnia. senna-docusate (SENNA-S) 8.6-50 mg per tablet Take 1 tablet by mouth twice daily. simethicone, chewable (MYLICON) 80 mg chewable tablet Take 1 tablet by mouth four times daily as needed. cholecalciferol, vitamin D3, (VITAMIN D3 ORAL) Take 1 capsule by mouth once daily. aspirin, enteric coated (ASPIRIN, ENTERIC COATED) 81 mg EC tablet Take 81 mg by mouth once daily. Zinc 50 mg tab Take by mouth once daily. Biotin 10,000 mcg cap Take by mouth once daily. docusate sodium (COLACE ORAL) Take by mouth as needed. polyethylene glycol 3350 (MIRALAX, GLYCOLAX) 17 gram/dose powder Take 17 g by mouth as needed. vitamin b complex tab Take 1 tablet by mouth once daily. calcium carbonate/vitamin d3(CALCIUM 600 WITH VITAMIN D3 600 MG (1,500)-200 UNIT TAB) Take one(1) tablet twice daily. CENTRUM TABLET Take one(1) tablet daily. tiZANidine (ZANAFLEX) 4 mg tablet 1/2 to 1 tab q8h as needed for pain/ spasm (Patient not taking: Reported on 08/09/2022) No current facility-administered medications for this visit. FAMILY HISTORY Problem Relation Age of Onset Cancer Mother uterine GI Mother colon resection for diverticulitis Cancer Father non-melanoma skin ca Diabetes Father around age 50 Ischemic Heart Disease Father bypass at age 70 SOCIAL HISTORY: Lives in [place] with . Friends with Nafisa De Los Santos Tobacco use: None Alcohol use: None REVIEW OF SYSTEMS: reviewed 02/24 systems, as above PHYSICAL EXAM: VITALS: Blood pressure 134/76, pulse 66, temperature 36.7 C (98.1 F), temperature source Temporal,height 182.9 cm (6'), weight 129.3 kg (285 lb). CONSTITUTIONAL: Well-appearing, in NAD. SKIN: No rash. No sclerodactyly, calcinosis, telangiectasias, digital ulcers, or skin thickening. EYES: No scleral icterus or conjunctivitis ENT and Mouth: External ears normal. Nares normal. RESPIRATORY: Normal breath sounds, clear to auscultation. CARDIOVASCULAR: Regular rate and rhythm EXTREMITIES/LYMPH: No edema bilaterally NEURO: Awake, alert and oriented, walker MUSCULOSKELETAL: JOINT APPEARANCE: No erythema or warmth of any upper or lower extremity joint. RANGE OF MOTION: Able to fully close fists and curl fingers bilaterally. SWOLLEN JOINTS/SYNOVITIS: No synovitis of any joint. TENDER JOINTS: None LABORATORY: Component Latest Ref Rng & Units 07/24/2022 Protein, Total 6.3 - 8.0 g/dL 7.0 Albumin 3.9 - 4.9 g/dL 4.4 Calcium 8.5 - 10.2 mg/dL 9.2 Bilirubin, Total 0.2 - 1.3 mg/dL 0.3 Alkaline Phosphatase 38 - 113 U/L 59 AST 14 - 40 U/L 29 ALT 10 - 54 U/L 37 Glucose 74 - 99 mg/dL 100 (H) BUN 9 - 24 mg/dL 20 Creatinine 0.73 - 1.22 mg/dL 0.92 Sodium 136 - 144 mmol/L 136 Potassium 3.7 - 5.1 mmol/L 4.2 Chloride 97 - 105 mmol/L 99 CO2 22 - 30 mmol/L 28 Anion Gap 9 - 18 mmol/L 9 eGFR >=60 mL/min/1.73m 87 WBC 3.70 - 11.00 k/uL 6.03 RBC 4.20 - 6.00 m/uL 4.56 Hemoglobin 13.0 - 17.0 g/dL 14.2 Platelet Count 150 - 400 k/uL 136 (L) MPV 9.0 - 12.7 fL 10.3 Absolute nRBC <0.01 k/uL <0.01 Magnesium 1.7 - 2.3 mg/dL 2.2 WSR 0 - 15 mm/hr 16 (H) CRP <0.9 mg/dL <0.3 CK 51 - 298 U/L 134 Component Latest Ref Rng & Units 11/24/2019 CRP <0.9 mg/dL 0.1 WSR 0 - 15 mm/hr 8 *Feb normal RF *Dec positive MACARENA STUDIES: *Jun xray L-spine- DEGENERATIVE CHANGE, OSTEOPENIA. SCOLIOSIS. PROGRESSION FROM THE PRIOR STUDY *October DEXA- normal IMPRESSION and PLAN: 1. Eosinophilic fasciitis: On HCQ and chronic prednisone for years, discontinued in the . Stable. - Continue monitoring symptoms 2. Positive MACARENA/SSA: No evidence for lupus. - Continue monitoring 3. Bilateral knee pain: OA, R quads tendon tear, R meniscal tear in the setting of past long-term prednisone use - Agree with PT as planned - Tylenol up to 3000mg/day as needed for pain - Advised voltaren gel prn - Avoid NSAIDs given hx of CAD and PUD from remote [facility] - Continue ortho management (undergoing serial RANDALL injections) 4. Prior history of osteopenia: October DEXA normal - Continue monitoring 5. General health maintenance: - Has received covid vaccine - Advised to continue follow-up with PCP for routine health maintenance and malignancy screening Follow-up in 1 year. Patient was instructed to call if any questions or concerns. Thank you for allowing me to participate in the care of your patient. Steven Rojas MD documented in this encounterHigh[facility]03-[facility]23 NoteHNO ID: [id number] Author: Lyric Cartagena PA-C Service: ? Author Type: Physician Lathe Mechanic Type: Progress Notes Filed: 07/27/2022 10:29 AM Note Text: Patient: Donald Mayorga PCP: Antonio Stewart MD CC: chronic cough HPI: Donald Mayorga 76 year old male former minimal pipe/cigarette smoker with PMH significant for remote eosinophilic fasciitis, GERD, HLD, HTN, BPH, CAD s/p CABG/AVR, Covid 19 04/2022, and cough variant asthma. Initially evaluated by Dr. Louis 05/29/2022 for chronic cough. PFTs showed moderate obstruction with reversibility small airways postbronchodilator. Patient was started on Dulera 100/5. Allergy labs were normal. Today, patient states he is doing the Dulera without any issues. Denies cough. Reports wheezing is improved with Dulera. No shortness of breath. Chronic rhinorrhea. Uses Atrovent nasal spray. Follows with [facility] [facility]. PAST MEDICAL HISTORY Diagnosis Date Anal fissure Aortic stenosis moderate Basal cell carcinoma of forehead 2010 BPH with obstruction/lower urinary tract symptoms Colon polyps Degenerative skin disorder 2003 venous leg ulcers. improved w Trental. Disorder of bone and cartilage, unspecified since 1994 mild -penia at femoral neck only Esophageal reflux Gastroesophageal reflux HLD (hyperlipidemia) HTN (hypertension) Hydrocele 05/21/2011 Personal history of unspecified disease eosinophilc fasciitis [id number]. remission since 1995. 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 Shingles 2010 left facial - treated with antiviral and gabapentin Allergies: Amitriptyline Mental Status Change Augmentin [Amoxicil* Diarrhea, GI Upset Clavulanic Acid Diarrhea Hydromorphone Other: See Comments Comment:[place] very dopey and nauseated Ibuprofen Other: See Comments Comment:ulcer from high doses Lactobacillus acidophilus (PROBIOTIC ORAL) Take by mouth. finasteride (PROSCAR) 5 mg tablet Take 1 tablet by mouth once daily. mometasone-formoterol (DULERA) 100-5 mcg/actuation inhaler Inhale 2 Puffs as instructed twice daily. venlafaxine ER (EFFEXOR XR) 37.5 mg 24 hr capsule Take 1 capsule by mouth once daily. dilTIAZem ointment 2% (CPD) by RECTAL route twice daily. LORazepam (ATIVAN) 0.5 mg Take 1 tablet by mouth three times daily as needed for up to 30 days. metoprolol tartrate, short acting, (LOPRESSOR) 50 mg tablet Take 1 tablet by mouth every 12 hours. amLODIPine (NORVASC) 5 mg tablet Take 1 tablet by mouth once daily. furosemide (LASIX) 20 mg tablet Take 1 tablet by mouth once daily. (Patient taking differently: Take 40 mg by mouth once daily.) pantoprazole DR (PROTONIX) 40 mg tablet Take 1 tablet by mouth daily before breakfast. Take on empty stomach, 1/2 hr before meal. (Patient not taking: Reported on 07/24/2022) tiZANidine (ZANAFLEX) 4 mg tablet 1/2 to 1 tab q8h as needed for pain/ spasm tamsulosin (FLOMAX) 0.4 mg TAKE 1 CAPSULE BY MOUTH EVERY DAY rosuvastatin (CRESTOR) 20 mg tablet TAKE 1 TABLET BY MOUTH EVERYDAY AT BEDTIME acetaminophen (TYLENOL) 500 mg tablet Take 2 tablets by mouth every 6 hours. melatonin 3 mg tablet Take 1 tablet by mouth at bedtime as needed for for insomnia. senna-docusate (SENNA-S) 8.6-50 mg per tablet Take 1 tablet by mouth twice daily. simethicone, chewable (MYLICON) 80 mg chewable tablet Take 1 tablet by mouth four times daily as needed. cholecalciferol, vitamin D3, (VITAMIN D3 ORAL) Take 1 capsule by mouth once daily. aspirin, enteric coated (ASPIRIN, ENTERIC COATED) 81 mg EC tablet Take 81 mg by mouth once daily. Zinc 50 mg tab Take by mouth once daily. Biotin 10,000 mcg cap Take by mouth once daily. docusate sodium (COLACE ORAL) Take by mouth as needed. polyethylene glycol 3350 (MIRALAX, GLYCOLAX) 17 gram/dose powder Take 17 g by mouth as needed. vitamin b complex tab Take 1 tablet by mouth once daily. calcium carbonate/vitamin d3(CALCIUM 600 WITH VITAMIN D3 600 MG (1,500)-200 UNIT TAB) Take one(1) tablet twice daily. CENTRUM TABLET Take one(1) tablet daily. Social History Tobacco Use Smoking status: Former Types: Pipe, Cigarettes Quit date: 11/19/1979 Years since quittin.7 Smokeless tobacco: Never Tobacco comments: quit 30yrs ago. 1 ppd for a few years Vaping Use Vaping Use: Never used Substance Use Topics Alcohol use: Yes Comment: 1 beer daily Drug use: No Family History Problem Relation Age of Onset Cancer Mother uterine GI Mother colon resection for diverticulitis Cancer Father non-melanoma skin ca Diabetes Father around age 50 Ischemic Heart Disease Father bypass at age 72 PAST SURGICAL HISTORY Procedure Laterality Date CLSR ANAL FSTL W/RCT ADVMNT FLAP 1998 COLECTOMY PARTIAL W/ANASTOMOSIS 07/11/2017 For sigmoid volvulus COLONOSC (more content not included)...[facility]03-16-2023 History of Present illness Narrative* Lyric Cartagena PA-C - 07/27/2022 9:07 AM EDT Patient: Donald Mayorga PCP: Antonio Stewart MD CC: chronic cough HPI: Donald Mayorga 76 year old male former minimal pipe/cigarette smoker with PMH significant for remote eosinophilic fasciitis, GERD, HLD, HTN, BPH, CAD s/p CABG/AVR, Covid 19 04/2022, and coughvariant asthma. Initially evaluated by Dr. Louis 05/29/2022 for chronic cough. PFTs showed moderateobstruction with reversibility small airways postbronchodilator. Patient was started on Dulera 100/5. Allergy labs were normal. Today, patient states he is doing the Dulera without any issues. Denies cough. Reports wheezing is improved with Dulera. No shortness of breath. Chronic rhinorrhea. Uses Atrovent nasal spray. Follows with [facility]. PAST MEDICAL HISTORY Diagnosis Date Anal fissure Aortic stenosis moderate Basal cell carcinoma of forehead 2010 BPH with obstruction/lower urinary tract symptoms Colon polyps Degenerative skin disorder 2003 venous leg ulcers. improved w Trental. Disorder of bone and cartilage, unspecified since 1994 mild -penia at femoral neck only Esophageal reflux Gastroesophageal reflux HLD (hyperlipidemia) HTN (hypertension) Hydrocele 05/21/2011 Personal history of unspecified disease eosinophilc fasciitis [id number]. remission since 1995. 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 Shingles 2010 left facial - treated with antiviral and gabapentin Allergies: Amitriptyline Mental Status Change Augmentin [Amoxicil* Diarrhea, GI Upset Clavulanic Acid Diarrhea Hydromorphone Other: See Comments Comment:[place] very dopey and nauseated Ibuprofen Other: See Comments Comment:ulcer from high doses Lactobacillus acidophilus (PROBIOTIC ORAL) Take by mouth. finasteride (PROSCAR) 5 mg tablet Take 1 tablet by mouth once daily. mometasone-formoterol (DULERA) 100-5 mcg/actuation inhaler Inhale 2 Puffs as instructed twice daily. venlafaxine ER (EFFEXOR XR) 37.5 mg 24 hr capsule Take 1 capsule by mouth once daily. dilTIAZem ointment 2% (CPD) by RECTAL route twice daily. LORazepam (ATIVAN) 0.5 mg Take 1 tablet by mouth three times daily as needed for up to 30 days. metoprolol tartrate, short acting, (LOPRESSOR) 50 mg tablet Take 1 tablet by mouth every 12 hours. amLODIPine (NORVASC) 5 mg tablet Take 1 tablet by mouth once daily. furosemide (LASIX) 20 mg tablet Take 1 tablet by mouth once daily. (Patient taking differently: Take 40 mg by mouth once daily.) pantoprazole DR (PROTONIX) 40 mg tablet Take 1 tablet by mouth daily before breakfast. Take on empty stomach, 1/2 hr before meal. (Patient not taking: Reported on 07/24/2022) tiZANidine (ZANAFLEX) 4 mg tablet 1/2 to 1 tab q8h as needed for pain/ spasm tamsulosin (FLOMAX) 0.4 mg TAKE 1 CAPSULE BY MOUTH EVERY DAY rosuvastatin (CRESTOR) 20 mg tablet TAKE 1 TABLET BY MOUTH EVERYDAY AT BEDTIME acetaminophen (TYLENOL) 500 mg tablet Take 2 tablets by mouth every 6 hours. melatonin 3 mg tablet Take 1 tablet by mouth at bedtime as needed for for insomnia. senna-docusate (SENNA-S) 8.6-50 mg per tablet Take 1 tablet by mouth twice daily. simethicone, chewable (MYLICON) 80 mg chewable tablet Take 1 tablet by mouth four times daily as needed. cholecalciferol, vitamin D3, (VITAMIN D3 ORAL) Take 1 capsule by mouth once daily. aspirin, enteric coated (ASPIRIN, ENTERIC COATED) 81 mg EC tablet Take 81 mg by mouth once daily. Zinc 50 mg tab Take by mouth once daily. Biotin 10,000 mcg cap Take by mouth once daily. docusate sodium (COLACE ORAL) Take by mouth as needed. polyethylene glycol 3350 (MIRALAX, GLYCOLAX) 17 gram/dose powder Take 17 g by mouth as needed. vitamin b complex tab Take 1 tablet by mouth once daily. calcium carbonate/vitamin d3(CALCIUM 600 WITH VITAMIN D3 600 MG (1,500)-200 UNIT TAB) Take one(1) tablet twice daily. CENTRUM TABLET Take one(1) tablet daily. Social History Tobacco Use Smoking status: Former Types: Pipe, Cigarettes Quit date: 11/19/1979 Years since quittin.7 Smokeless tobacco: Never Tobacco comments: quit 30yrs ago. 1 ppd for a few years Vaping Use Vaping Use: Never used Substance Use Topics Alcohol use: Yes Comment: 1 beer daily Drug use: No Family History Problem Relation Age of Onset Cancer Mother uterine GI Mother colon resection for diverticulitis Cancer Father non-melanoma skin ca Diabetes Father around age 50 Ischemic Heart Disease Father bypass at age 70 PAST SURGICAL HISTORY Procedure Laterality Date CLSR ANAL FSTL W/RCT ADVMNT FLAP 1998 COLECTOMY PARTIAL W/ANASTOMOSIS 07/11/2017 For sigmoid volvulus COLONOSCOPY 09/2015 COLONOSCOPY FLX DX W/COLLJ SPEC WHEN PFRMD 10/09/2019 Colonoscopy EXCISION PILONIDAL CYST/SINUS SIMPLE 1972 PAST SURGICAL HISTORY OF 09/2010 Sphincterotomy PAST SURGICAL HISTORY OF 2013 fistulotomy PAST SURGICAL HISTORY OF Right Laser Ablation on veins PAST SURGICAL HISTORY OF 1998 sphincterotomy PAST SURGICAL HISTORY OF 11/2020 CABG/AVR PAST SURGICAL HISTORY OF Left Quadriceps tendon RPLCMT PROST AORTIC VALVE OPEN XCP HOMOGRF/STENT 11/30/2020 I reviewed the past medical history, family history, social history and surgical history with changes noted above and updated in EMR. IMMUNIZATIONS Prevnar - 09/11/2014 Pneumovax - 12/17/2012 Influenza - 01/20/2022 COVID-19 - 01/20/2022, 09/11/2021, 02/10/2021, 07/07/2020, 06/16/2020 ROS: General: Generally feels well. No fevers, chills, or night sweats. Appetite good. Eyes, Ears, nose, throat: Rhinorrhea. No post nasal drip, purulent nasal discharge, epistaxis. No hoarseness. Vision stable. Cardiac: No angina, edema, orthopnea. Resp: See HPI. GI: No heartburn, dysphagia. Musculoskeletal: Sporadic back pain. Neuro: No headache, focal weakness, tremor. Skin: No new rash. Otherwise negative. PHYSICAL EXAMINATION: BP (P) 126/78 Pulse (P) 78 Resp (P) 17 Wt (P) 128.4 kg (283 lb) SpO2 (P) 99% BMI (P) 39.47 kg/m Gen: No acute distress. Cooperative with examination. HEENT: Normocephalic. Sclera, conjunctiva clear. Oral hygeine and dentition good. No thrush. Resp: No stridor, accessory respiratory muscle use, supra-sternal or intercostal retractions. No wheezes, crackles. CV: Regular rythm. Systolic murmur. Radial pulses normal. Abd: Non distended. MSK: No kyphoscoliosis. Ext: Warm and well perfused. No clubbing, cyanosis, edema. Skin: No rash, ecchymoses. Neuro: Mental status normal. Affect normal. No tremor. DATA: PFT, 05/29/2022 IMPRESSION: Spirometry reveals obstruction; reduced FVC indicates concurrent restriction. The increase in FEF 25-75 post-bronchodilator reflects an improvement in the small airway obstruction. Electronically Signed On 05-29-2022 16:38:02 EST by Ioana Louis M.D. Exhaled nitric oxide ([place]), 05/29/2022: 18 (normal < 20). Labs Component Latest Ref Rng & Units 05/29/2022 [place] IgE <0.35 kU/l <0.35 [place] Class Class 0 Class 0 [id number] Juma Grass <0.35 kU/l <0.35 Juma Grass Class Class 0 Class 0 Patricia Grass IgE <0.35 kU/l <0.35 Patricia Grass Class Class 0 Class 0 Short Ragweed IgE <0.35 kU/l <0.35 Short Ragweed Class Class 0 Class 0 [place] IgE <0.35 kU/l <0.35 [place] Class Class 0 Class 0 Cat Dander IgE <0.35 kU/l <0.35 Cat Dander Class Class 0 Class 0 Dog Dander IgE <0.35 kU/l <0.35 Dog Dander Class Class 0 Class 0 Cladosporium herbarum IgE <0.35 kU/l <0.35 Cladosporium herbarum Class Class 0 Class 0 Alternaria tenuis IgE <0.35 kU/l <0.35 Alternaria tenuis Class Class 0 Class 0 D. farinae IgE <0.35 kU/l <0.35 D. farinae Class Class 0 Class 0 IgE <114.0 kU/l 2.6 Abs Eosin <0.46 k/uL 0.17 ASSESSMENT/PLAN: 1. Cough variant asthma - ICD9: 493.82, ICD10: J45.991 (primary diagnosis) PFTs demonstrated moderate obstruction with reversibility in small airways postbronchodilator. Symptomatically doing well. Continue maintenance therapy with Dulera 100/5 with Aerochamber. Rinse mouth after each use to helpprevent oral thrush. -patient used inhaler in office with Aerochamber to make sure he is using correct technique Albuterol HFA inhaler, 2 inhalations 10-15 minutes prior to activities associated with shortness ofbreath, and as needed for rescue relief of shortness of breath or wheezing, up to 4 times daily. Up to date on annual influenza, pneumococcal and Covid 19 vaccines. 2. Obesity (BMI 30-39.9) - ICD9: 278.00, ICD10: E66.9 Weight loss advised. Lyric Cartagena PA-C [facility] NoteHNO ID: [id number] Author: Juani Douglas PA-C Service: ? Author Type: Physician Lathe Mechanic Type: Progress Notes Filed: 07/25/2022 6:42 AM Note Text: 76 year old male with c/o leg discomfort x 2 weeks with stiff knees and calves. Moving feet feels painful. Torn left quadraceps tendon. Trouble getting around Acknowledges significant fatigue, tries to walk a mile daily for exercise when weather is warm. Does not do much through the winter. Also tries to do some upper body light weight exercises. Fatigues easily. Generally sleeps through the night except for waking for urination. Does not stretch before or after exercise or at any other times. Cerebral aneurysm, nonruptured (primary encounter diagnosis) Coronary artery disease involving [place] coronary artery of [place] heart without angina pectoris Chronic diastolic congestive heart failure (hcc) Paroxysmal atrial fibrillation ([facility]) Severe aortic stenosis S/p cabg x 3 Other hyperlipidemia First degree av block S/p avr (aortic valve replacement) Pvd (peripheral vascular disease) ([facility]) Cardiovascular interval hx: [facility]: 07/14/2021 echo: RV size and RV SF WNL, ejection fraction 35%, no regional wall motion abnormalities, low diastolic dysfunction. RV: Normal size and systolic function. Bilateral atria normal size. MV, TV, PV all WNL. AV: Peak aortic gradient 30 mmHg, mean aortic gradient 17 mmHg, bioprosthetic valve. Normal aortic root. No pericardial effusion. Cerebrovascular: Dr. Gerardo Keith 04/22/2021 MRA brain without IV contrast:Stable 2 mm aneurysm at right A1 bifurcation going back to 2010. 06/12/19 MRA: Stable infundibulum versus tiny aneurysm MRI 2010 done for dysequilibrium per Dr. Papa Lobo showed aneurysm. Reviewed Dr. Keith , 4 CAT scans since have been stable. Due for recheck in early 2017. Last saw neurosurgery 2020. Discussed recheck in three to five years 01/09/2011 MRI/MRAA incidental right NOAH aneurysm Current meds: Metoprolol tartrate 50mg every 12h Amlodipine 5mg daily Furoemide 20mg daiy Use of NTG: No Chest pain, arm, jaw pain, neck, or upper back pain suggestive of angina: No. SOB: No Dyspnea with exertion: No orthopnea: No Cough : No racing or irregular heartbeats: No palpitations: No syncopal sx: No Headache: No Unexplainable fatigue: seems chronically tired Leg swelling: No Nausea: No diaphoresis: No Heartburn: No Claudication: No Smoking: No Following Low cholesterol, high fiber diet? Yes- conscious at least If on statin: muscle aches? No If on statin: GI sx or diarrhea? No Additional history none. Lab review: Overactive bladder Bph with obstruction/lower urinary tract symptoms Hydrocele, unspecified hydrocele type Current medications: Finasteride 5mg daily Tamsulosin 0.4mg daily HS Doing well with urine flow. Nocturia 1-2 HISTORIES FAMILY HISTORY Problem Relation Age of Onset Cancer Mother uterine GI Mother colon resection for diverticulitis Cancer Father non-melanoma skin ca Diabetes Father around age 50 Ischemic Heart Disease Father bypass at age 70 PAST MEDICAL HISTORY Diagnosis Date Anal fissure Aortic stenosis moderate Basal cell carcinoma of forehead 2010 BPH with obstruction/lower urinary tract symptoms Colon polyps Degenerative skin disorder 2003 venous leg ulcers. improved w Trental. 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 PVD (peripheral vascular disease) (HCC) Rosacea 01/25/2007 Shingles 2010 left facial - treated with antiviral and gabapentin PAST SURGICAL HISTORY Procedure Laterality Date CLSR ANAL FSTL W/RCT ADVMNT FLAP 1998 COLECTOMY PARTIAL W/ANASTOMOSIS 07/11/2017 For sigmoid volvulus COLONOSCOPY 09/2015 COLONOSCOPY FLX DX W/COLLJ SPEC WHEN PFRMD 10/09/2019 Colonoscopy EXCISION PILONIDAL CYST/SINUS SIMPLE 1972 PAST SURGICAL HISTORY OF 09/2010 Sphincterotomy PAST SURGICAL HISTORY OF 2013 fistulotomy PAST SURGICAL HISTORY OF Right Laser Ablation on veins PAST SURGICAL HISTORY OF 1998 sphincterotomy PAST SURGICAL HISTORY OF 11/2020 CABG/AVR PAST SURGICAL HISTORY OF Left Quadriceps tendon RPLCMT PROST AORTIC VALVE OPEN XCP HOMOGRF/STENT 11/30/2020 Social History Tobacco Use Smoking status: Former Types: Pipe, Cigarettes Quit date: 11/19/1979 Years since quittin.7 Smokeless tobacco: Never Tobacco comments: quit 30yrs ago. 1 ppd for a few years Vaping Use Vaping Use: Never used Substance Use Topics Alcohol use: Yes Comment: 1 beer daily Drug use: No ACTIVE PROBLEM LIST (more content not included)...[facility]03-13-2023 History of Present illness Narrative* Juani Douglas PA-C - 07/24/2022 11:20 AM EDT 76 year old male with c/o leg discomfort x 2 weeks with stiff knees and calves. Moving feet feels painful. Torn left quadraceps tendon. Trouble getting around Acknowledges significant fatigue, tries to walk a mile daily for exercise when weather is warm. Does not do much through the winter. Also tries to do some upper body light weight exercises. Fatigues easily. Generally sleeps through the night except for waking for urination. Does not stretch before or after exercise or at any other times. Cerebral aneurysm, nonruptured (primary encounter diagnosis) Coronary artery disease involving [place] coronary artery of [place] heart without angina pectoris Chronic diastolic congestive heart failure (hcc) Paroxysmal atrial fibrillation (hcc) Severe aortic stenosis S/p cabg x 3 Other hyperlipidemia First degree av block S/p avr (aortic valve replacement) Pvd (peripheral vascular disease) ([facility]) Cardiovascular interval hx: [facility]: 07/14/2021 echo: RV size and RV SF WNL, ejection fraction 35%, no regional wall motion abnormalities,low diastolic dysfunction. RV: Normal size and systolic function. Bilateral atria normal size. MV, TV, PV all WNL. AV: Peak aortic gradient 30 mmHg, mean aortic gradient 17 mmHg, bioprosthetic valve.Normal aortic root. No pericardial effusion. Cerebrovascular: Dr. Gerardo Keith 04/22/2021 MRA brain without IV contrast:Stable 2 mm aneurysm at right A1 bifurcation going back [id number]. 06/12/19 MRA: Stable infundibulum versus tiny aneurysm MRI 2010 done for dysequilibrium per Dr. Papa Lobo showed aneurysm. Reviewed Dr. Keith , 4 CATscans since have been stable. Due for recheck in early 2017. Last saw neurosurgery 2020. Discussed recheck in three to five years 01/09/2011 MRI/MRAA incidental right NOAH aneurysm Current meds: Metoprolol tartrate 50mg every 12h Amlodipine 5mg daily Furoemide 20mg daiy Use of NTG: No Chest pain, arm, jaw pain, neck, or upper back pain suggestive of angina: No. SOB: No Dyspnea with exertion: No orthopnea: No Cough : No racing or irregular heartbeats: No palpitations: No syncopal sx: No Headache: No Unexplainable fatigue: seems chronically tired Leg swelling: No Nausea: No diaphoresis: No Heartburn: No Claudication: No Smoking: No Following Low cholesterol, high fiber diet? Yes- conscious at least If on statin: muscle aches? No If on statin: GI sx or diarrhea? No Additional history none. Lab review: Overactive bladder Bph with obstruction/lower urinary tract symptoms Hydrocele, unspecified hydrocele type Current medications: Finasteride 5mg daily Tamsulosin 0.4mg daily HS Doing well with urine flow. Nocturia 1-2 HISTORIES FAMILY HISTORY Problem Relation Age of Onset Cancer Mother uterine GI Mother colon resection for diverticulitis Cancer Father non-melanoma skin ca Diabetes Father around age 50 Ischemic Heart Disease Father bypass at age 70 PAST MEDICAL HISTORY Diagnosis Date Anal fissure Aortic stenosis moderate Basal cell carcinoma of forehead 2010 BPH with obstruction/lower urinary tract symptoms Colon polyps Degenerative skin disorder 2003 venous leg ulcers. improved w [place]al. Disorder of bone and cartilage, unspecified since 1994 mild -penia at femoral neck only Esophageal reflux Gastroesophageal reflux HLD (hyperlipidemia) HTN (hypertension) Hydrocele 05/21/2011 Personal history of unspecified disease eosinophilc fasciitis [id number]. remission since 1995. 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 PVD (peripheral vascular disease) (HCC) Rosacea 01/25/2007 Shingles 2010 left facial - treated with antiviral and gabapentin PAST SURGICAL HISTORY Procedure Laterality Date CLSR ANAL FSTL W/RCT ADVMNT FLAP 1998 COLECTOMY PARTIAL W/ANASTOMOSIS 07/11/2017 For sigmoid volvulus COLONOSCOPY 09/2015 COLONOSCOPY FLX DX W/COLLJ SPEC WHEN PFRMD 10/09/2019 Colonoscopy EXCISION PILONIDAL CYST/SINUS SIMPLE 1972 PAST SURGICAL HISTORY OF 09/2010 Sphincterotomy PAST SURGICAL HISTORY OF 2014 fistulotomy PAST SURGICAL HISTORY OF Right Laser Ablation on veins PAST SURGICAL HISTORY OF 1998 sphincterotomy PAST SURGICAL HISTORY OF 11/2020 CABG/AVR PAST SURGICAL HISTORY OF Left Quadriceps tendon RPLCMT PROST AORTIC VALVE OPEN XCP HOMOGRF/STENT 11/30/2020 Social History Tobacco Use Smoking status: Former Types: Pipe, Cigarettes Quit date: 11/19/1979 Years since quittin.7 Smokeless tobacco: Never Tobacco comments: quit 30yrs ago. 1 ppd for a few years Vaping Use Vaping Use: Never used Substance Use Topics Alcohol use: Yes Comment: 1 beer daily Drug use: No ACTIVE PROBLEM LIST DEGENERATIVE SKIN DISORD- NLD Personal History of Diseases of Skin and Subcutaneous Tissue Malignant Neoplasm of Skin Cervicalgia Fissure in Ano Anal Fissure Colon Polyps Cerebral Aneurysm, Nonruptured Hydrocele Levator Spasm Pvd (Peripheral Vascular Disease) ([facility]) Vertigo of Central Origin Hemorrhoids First Degree Av Block Obesity Degeneration of Intervertebral Disc, Site Unspecified Bilateral Inguinal Hernia Without Obstruction Or Gangrene Severe Aortic Stenosis Bph With Obstruction/Lower Urinary Tract Symptoms Esophageal Reflux Anal Or Rectal Pain High-Tone Pelvic Floor Dysfunction History of Rectal Sphincterotomy Overactive Bladder Other Hyperlipidemia S/P Cabg X 3 S/P Avr (Aortic Valve Replacement) Cellulitis Coronary Artery Disease Involving [place] Coronary Artery of [place] Heart Without Angina Pectoris Chronic Diastolic Congestive Heart Failure (Hcc) Paroxysmal Atrial Fibrillation (Hcc) Eosinophilic Fasciitis Current Outpatient Medications Medication Sig Dispense Refill finasteride (PROSCAR) 5 mg tablet Take 1 tablet by mouth once daily. 90 tablet 3 mometasone-formoterol (DULERA) 100-5 mcg/actuation inhaler Inhale 2 Puffs as instructed twice daily. 3 Each 3 venlafaxine ER (EFFEXOR XR) 37.5 mg 24 hr capsule Take 1 capsule by mouth once daily. 90 capsule 3 dilTIAZem ointment 2% (CPD) by RECTAL route twice daily. 30 g 1 LORazepam (ATIVAN) 0.5 mg Take 1 tablet by mouth three times daily as needed for up to 30 days. 30 tablet 0 metoprolol tartrate, short acting, (LOPRESSOR) 50 mg tablet Take 1 tablet by mouth every 12 hours. 180 tablet 3 amLODIPine (NORVASC) 5 mg tablet Take 1 tablet by mouth once daily. 90 tablet 3 furosemide (LASIX) 20 mg tablet Take 1 tablet by mouth once daily. (Patient taking differently: Take 40 mg by mouth once daily.) [address] (PROTONIX) 40 mg tablet Take 1 tablet by mouth daily before breakfast. Take on empty stomach, 1/2 hr before meal. 90 tablet 3 tiZANidine (ZANAFLEX) 4 mg tablet 1/2 to 1 tab q8h as needed for pain/ spasm 30 tablet 1 tamsulosin (FLOMAX) 0.4 mg TAKE 1 CAPSULE BY MOUTH EVERY DAY 90 capsule 3 rosuvastatin (CRESTOR) 20 mg tablet TAKE 1 TABLET BY MOUTH EVERYDAY AT BEDTIME 90 tablet 1 acetaminophen (TYLENOL) 500 mg tablet Take 2 tablets by mouth every 6 hours. melatonin 3 mg tablet Take 1 tablet by mouth at bedtime as needed for for insomnia. senna-docusate (SENNA-S) 8.6-50 mg per tablet Take 1 tablet by mouth twice daily. simethicone, chewable (MYLICON) 80 mg chewable tablet Take 1 tablet by mouth four times daily as needed. cholecalciferol, vitamin D3, (VITAMIN D3 ORAL) Take 1 capsule by mouth once daily. aspirin, enteric coated (ASPIRIN, ENTERIC COATED) 81 mg EC tablet Take 81 mg by mouth once daily. Zinc 50 mg tab Take by mouth once daily. Biotin 10,000 mcg cap Take by mouth once daily. docusate sodium (COLACE ORAL) Take by mouth as needed. polyethylene glycol 3350 (MIRALAX, GLYCOLAX) 17 gram/dose powder Take 17 g by mouth as needed. vitamin b complex tab Take 1 tablet by mouth once daily. calcium carbonate/vitamin d3(CALCIUM 600 WITH VITAMIN D3 600 MG (1,500)-200 UNIT TAB) Take one(1) tablet twice daily. 0 0 CENTRUM TABLET Take one(1) tablet daily. 0 No current facility-administered medications for this visit. LDL CHOLESTEROL due on 12/27/2021 ADVANCE DIRECTIVE DISCUSSION due on 05/14/2022 DEPRESSION ASSESSMENT due on 05/14/2022 EXAM: BP 118/62 Pulse 63 Resp 16 Wt 128.4 kg (283 lb) SpO2 95% BMI 39.47 kg/m Pleasant older man in no acute distress. Alert and oriented all spheres. Normal affect and cognition. Speech normal. No deficits to learning or comprehension. Skin warm, dry, pink to lips and nailbeds. Normal turgor. Respirations regular and unlabored. HEENT: NCAT. No scleral icterus or conjunctival injection. TM's clear. Nose and oropharynx free from injection or lesion. Oral membranes moist and pink. No cervical lymph nodes. Thyroid non-tender, no masses, or enlargement. Carotids pulses 2+/4+ without bruits. No JVD with HOB at 30 degrees. Chest is normal shape. Lungs are clear to all [place] with good air exchange through out. HRRR without murmur or gallop. No lifts, heaves, or rubs. Extrem: no clubbing or cyanosis. Edema: none. Extremities are warm and pink with prompt capillary refill. Dorsal pedal pulses 2 out of 4 plus, easily palpable, smooth nails, still has hair on foot. Patient is quite stiff, reduced range of motion internal/external rotation of hips, stiff also in knees with nearly full range of motion flexion to about 100 degrees bilaterally, extension to 5 degrees of flexion. Very tight hamstrings. Some of this note may have been copied and pasted for the purpose of history context and comparison. ASSESSMENT/PLAN: 1. Cerebral aneurysm, nonruptured - ICD9: 437.3, ICD10: I67.1 (primary diagnosis) Stable without sx 2. Coronary artery disease involving [place] coronary artery of [place] heart without angina pectoris- ICD9: 414.01, ICD10: I25.10 No current sx, continue medication 3. Chronic diastolic congestive heart failure (HCC) - ICD9: 428.32, 428.0, ICD10: I50.32 Stable with current sx, as above 4. Paroxysmal atrial fibrillation (HCC) - ICD9: 427.31, ICD10: I48.0 Stable with most recent EKGs sinus bradycardia and controlled heart rate, asymptomatic with controlled rate. No anticoag. 5. Severe aortic stenosis - ICD9: 424.1, ICD10: I35.0 Resolved with valve replacement 6. S/P CABG x 3 - ICD9: V45.81, ICD10: Z95.1 stable 7. Other hyperlipidemia - ICD9: 272.4, ICD10: E78.49 Good control Continue medss, diet. 8. First degree AV block - ICD9: 426.11, ICD10: I44.0 stable 9. S/P AVR (aortic valve replacement) - ICD9: V43.3, ICD10: Z95.2 Doing well, follows with [facility] 10. Overactive bladder - ICD9: 596.51, ICD10: N32.81 Persistent issues with 11. BPH with obstruction/lower urinary tract symptoms - ICD9: 600.01, 599.69, ICD10: N40.1, N13.8 Doing well. 12. PVD (peripheral vascular disease) (HCC) - ICD9: 443.9, ICD10: I73.9 No formal testing. Clinical exam WNL. 13. Fatigue, unspecified type - ICD9: 780.79, ICD10: R53.83 Check labs - TSH BLD - CBC - COMP METABOLIC PANEL - MAGNESIUM BLD - SED RATE WESTERGREN - C-REACTIVE PROTEIN (CRP) - CK CREATINE KINASE 14. Stiffness in joint - ICD9: 719.50, ICD10: M25.60 Check labs Offered PT- would rather exercise at home Given AAOS lumbar, hip, knee rehab exercise sheets. - TSH BLD - CBC - COMP METABOLIC PANEL - MAGNESIUM BLD - SED RATE WESTERGREN - C-REACTIVE PROTEIN (CRP) - CK CREATINE KINASE F/u on results Juani Douglas PA-C documented in this encounterHigh[facility]03-10-2023 Miscellaneous Notes* Telephone Encounter - Lilliana Escobedo RN - 07/21/2022 1:39 PM EST Patient Update/FYI: Patient calling to make appt. Appt made appt with Anatoliy Douglas for 07/24/22 for evaluation due to complaints of bilateral leg discomfort over the past couple of weeks. Reports my legs feel achey and tired . States tylenol has not helped his legs. Denies: -shortness of breath -recent chest pain or palpitations -no leg swelling -no redness to legs -no numbness or tingling -no other sx's Pt sees Dr. Tipton in cardiology-last appt with him was this past May. Thank you. documented in this encounterHighland [facility] Hospital01-17-2023 Miscellaneous Notes* Telephone Encounter - Crista Rocio COX - 05/30/2022 9:59 AM EST Called patient, [facility] location is best. RX phoned. Crista Cruzdesiree COX documented in this encounterHighland District Hospital01-16-2023 NoteHNO ID: [id number] Author: Ioana Louis MD Service: ? Author Type: Physician Type: Progress Notes Filed: 05/29/2022 10:25 AM Note Text: . Respiratory [place] Note Patient name: Donald Mayorga PCP: Antonio Stewart MD Referring Physician: Consultation requested by Dr. Stewart for an opinion regarding chronic cough. My final recommendations will be communicated back to the requesting physician by way of shared Medical record or letter to requesting physician via US mail. CC: Chronic cough HPI: Donald Mayorga 76 year old obese male former minimal pipe/cigarette smoker with PMH significant for remote eosinophilic fasciitis, h/o GERD, HLD, HTN, BPH, CAD s/p CABG/AVR and recent COVID infection. Longstanding history of wheezing. Patient denies significant shortness of breath but other providers and individuals have noted hearing wheezing with normal breathing. Chronic cough dates that over a year. He had a wheezy cough without significant mucus production, although he felt chest congestion. He had paroxysms of coughing throughout the day. No particular trigger or pattern noted. No wheezing at night. No postprandial coughing. No significant dyspnea on exertion, no change in cough with exposure to changes in the weather or exposure to strong odors, fumes or scents. No current symptoms, no postnasal drip. He has no prior history of asthma, allergies or eczema. Evaluation has included referral to ENT physician who prescribed variety of nasal sprays without any resolution. He was started on Protonix 6 months ago for possible silent reflux. No interventions have improved his cough until he had COVID infection in April. Treated with Lagevrio. Cough has resolved. DATA: PFT: Review of pulmonary function test shows combined restriction and moderate obstruction with improvement in small airways obstruction postbronchodilator SERVICE DATE: 05/29/2022 SERVICE TIME: 9:23 AM Oral Exhaled Nitric Oxide measurement: 18.0 (ppb) Labs: Component Ref Range AND Units 1 mo ago COVID 19 Result Not Detected SARS-CoV-2 (Agent of COVID-19) Detected by RT-PCR or equivalent method. Abnormal Imaging/Diagnostic testing: [facility] Imaging Services [address] [place] [address] Chest PA and Lateral MR#: [id number] Acct: [id number] Name: DONALD MAYORGA Rep #: [id number] : 1945 M 76 From: Stephen Saxena MD PCP: Dr. Antonio Stewart MD Status: REG CLI Study: Chest PA and Lateral Date of Exam: 03/22/22 Exam# [id number] Ordering Dr: Papa Lobo MD STUDY: X-RAY CHEST REASON FOR EXAM: Male, 76 years old. Cough. TECHNIQUE: Frontal and lateral views of the chest. COMPARISON: None. FINDINGS: Low volume inspiration with elevation of the left hemidiaphragm. There is no demonstrated pleural abnormality. Cardiomegaly with sternotomy wires and valve replacement changes. Normal mediastinum and nataliia. Normal visualized pulmonary arteries. Aortic tortuosity. Mild osteopenia of the thoracic spine with mild spondylosis. Normal visualized ribs, clavicles, and shoulders. There is no demonstrated abnormality of the visualized soft tissue structures of the upper abdomen. I personally reviewed the images which shows low lung volumes and elevated left hemidiaphragm PAST MEDICAL HISTORY Diagnosis Date Anal fissure Aortic stenosis moderate Basal cell carcinoma of forehead 2010 BPH with obstruction/lower urinary tract symptoms Colon polyps Degenerative skin disorder 2003 venous leg ulcers. improved w Trental. 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 Take on empty stomach, 1/2 hr before meal. mometasone-formoterol (DULERA) 100-5 mcg/actuation inhaler Inhale 2 Puffs as instructed twice daily. venlafaxine ER (EFFEXOR XR) 37.5 mg 24 hr capsule Take 1 capsule by mouth once daily. dilTIAZem ointment 2% (CPD) by RECTAL route twice daily. LORazepam (ATIVAN) 0.5 mg Take 1 tablet by mouth three times daily as needed for up to 30 days. metoprolol tartrate, short acting, (LOPRESSOR) 50 mg tablet Take 1 tablet by mouth every 12 hours. a (more content not included)...[facility]01-16-2023 NoteHNO ID: [id number] Author: TUYET Sanders Service: ? Author Type: Respiratory Therapist Type: Procedures Filed: 05/29/2022 9:23 AM Note Text: RESPIRATORY THERAPY ORAL EXHALED NITRIC OXIDE SERVICE DATE: 05/29/2022 SERVICE TIME: 9:23 AM Oral Exhaled Nitric Oxide measurement: 18.0 (ppb) Normal: Adult 5-20 ppb, pediatric (<12 years) 5-15 ppb High Normal / Increased: Adult 20-35 ppb, pediatric (<12 years) 15-25 ppb Moderately raised exhaled Nitric Oxide may indicate underlying inflammation, but note that: Cold and influenza can raise exhaled Nitric Oxide and some patients have higher baseline exhaled Nitric Oxide levels than others. High: Adult >35 ppb, pediatric (<12 years) >25 ppb Indicative of ongoing eosinophilic inflammation. Symptomatic patient likely to respond to steroids. Possible causes (if already on steroids): Poor compliance, recent allergen exposure, steroid dose inadequate, and steroid resistance. Note that not all patients with high exhaled nitric oxide levels display symptoms. Oral Exhaled Nitric Oxide measurement (Previous Encounters) Test Date Oral Exhaled Nitric Oxide (ppb) 05/29/2022 18.0 NAME: TUYET Sanders PATIENT NAME: Donald Mayorga DATE: May 29, 2022 TIME: 9:23 [facility]01-16-2023 NoteHNO ID: [id number] Author: TUYET Sanders Service: ? Author Type: Respiratory Therapist Type: Progress Notes Filed: 05/29/2022 9:23 AM Note Text: PULM FUNCTION SMARTBLOCK: Provider: Ioana Louis MD Assisting Tech: TUYET Sanders Spirometry w/BD: 1 Exhaled Nitric Oxide: [facility] History of Present illness Narrative* Ioana Louis MD - 05/29/2022 10:00 AM EST Images from the original note were not included. . Respiratory [place] Note Patient name: Donald Mayorga PCP: Antonio Stewart MD Referring Physician: Consultation requested by Dr. Stewart for an opinion regarding chronic cough. My final recommendationswill be communicated back to the requesting physician by way of shared Medical record or letter to requesting physician via US mail. CC: Chronic cough HPI: Donald Mayorga 76 year old obese male former minimal pipe/cigarette smoker with PMH significant for remote eosinophilic fasciitis, h/o GERD, HLD, HTN, BPH, CAD s/p CABG/AVR and recent COVID infection. Longstanding history of wheezing. Patient denies significant shortness of breath but otherproviders and individuals have noted hearing wheezing with normal breathing. Chronic cough dates that over a year. He had a wheezy cough without significant mucus production, although he felt chest congestion. He had paroxysms of coughing throughout the day. No particular trigger or pattern noted. No wheezing at night. No postprandial coughing. No significant dyspnea on exertion, no change in cough with exposure to changes in the weather or exposure to strong odors, fumes or scents. No current symptoms, no postnasal drip. He has no prior history of asthma, allergies or eczema. Evaluation has included referral to ENT physician who prescribed variety of nasal sprays without any resolution. Hewas started on Protonix 6 months ago for possible silent reflux. No interventions have improved hiscough until he had COVID infection in April. Treated with Lagevrio. Cough has resolved. DATA: PFT: Review of pulmonary function test shows combined restriction and moderate obstruction with improvement in small airways obstruction postbronchodilator SERVICE DATE: 05/29/2022 SERVICE TIME: 9:23 AM Oral Exhaled Nitric Oxide measurement: 18.0 (ppb) Labs: Component Ref Range & Units 1 mo ago COVID 19 Result Not Detected SARS-CoV-2 (Agent of COVID-19) Detected by RT-PCR or equivalent method. Abnormal Imaging/Diagnostic testing: [facility] Imaging Services [address] [place] [address] Chest PA and Lateral MR#: [id number] Acct: [id number] Name: DONALD MAYORGA Rep #: [id number] : 1945 M 76 From: Stephen aSxena MD PCP: Dr. Antonio Stewart MD Status: REG CLI Study: Chest PA and Lateral Date of Exam: 03/22/22 Exam# [id number] Ordering Dr: Papa Lobo MD STUDY: X-RAY CHEST REASON FOR EXAM: Male, 76 years old. Cough. TECHNIQUE: Frontal and lateral views of the chest. COMPARISON: None. FINDINGS: Low volume inspiration with elevation of the left hemidiaphragm. There is no demonstrated pleural abnormality. Cardiomegaly with sternotomy wires and valve replacement changes. Normal mediastinum and nataliia. Normal visualized pulmonary arteries. Aortic tortuosity. Mild osteopenia of the thoracic spine with mild spondylosis. Normal visualized ribs, clavicles, andshoulders. There is no demonstrated abnormality of the visualized soft tissue structures of the upper abdomen. I personally reviewed the images which shows low lung volumes and elevated left hemidiaphragm PAST MEDICAL HISTORY Diagnosis Date Anal fissure Aortic stenosis moderate Basal cell carcinoma of forehead 2010 BPH with obstruction/lower urinary tract symptoms Colon polyps Degenerative skin disorder 2003 venous leg ulcers. improved w Trental. Disorder of bone and cartilage, unspecified since 1994 mild -penia at femoral neck only Esophageal reflux Gastroesophageal reflux HLD (hyperlipidemia) HTN (hypertension) Hydrocele 05/21/2011 Personal history of unspecified disease eosinophilc fasciitis 0577-9365. remission since 1995. 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 Take on empty stomach, 1/2 hr before meal. mometasone-formoterol (DULERA) 100-5 mcg/actuation inhaler Inhale 2 Puffs as instructed twice daily. venlafaxine ER (EFFEXOR XR) 37.5 mg 24 hr capsule Take 1 capsule by mouth once daily. dilTIAZem ointment 2% (CPD) by RECTAL route twice daily. LORazepam (ATIVAN) 0.5 mg Take 1 tablet by mouth three times daily as needed for up to 30 days. metoprolol tartrate, short acting, (LOPRESSOR) 50 mg tablet Take 1 tablet by mouth every 12 hours. amLODIPine (NORVASC) 5 mg tablet Take 1 tablet by mouth once daily. furosemide (LASIX) 20 mg tablet Take 1 tablet by mouth once daily. (Patient taking differently: Take 40 mg by mouth once daily.) tiZANidine (ZANAFLEX) 4 mg tablet 1/2 to 1 tab q8h as needed for pain/ spasm tamsulosin (FLOMAX) 0.4 mg TAKE 1 CAPSULE BY MOUTH EVERY DAY rosuvastatin (CRESTOR) 20 mg tablet TAKE 1 TABLET BY MOUTH EVERYDAY AT BEDTIME finasteride (PROSCAR) 5 mg tablet TAKE 1 TABLET DAILY acetaminophen (TYLENOL) 500 mg tablet Take 2 tablets by mouth every 6 hours. melatonin 3 mg tablet Take 1 tablet by mouth at bedtime as needed for for insomnia. senna-docusate (SENNA-S) 8.6-50 mg per tablet Take 1 tablet by mouth twice daily. simethicone, chewable (MYLICON) 80 mg chewable tablet Take 1 tablet by mouth four times daily as needed. cholecalciferol, vitamin D3, (VITAMIN D3 ORAL) Take 1 capsule by mouth once daily. aspirin, enteric coated (ASPIRIN, ENTERIC COATED) 81 mg EC tablet Take 81 mg by mouth once daily. Zinc 50 mg tab Take by mouth once daily. Biotin 10,000 mcg cap Take by mouth once daily. docusate sodium (COLACE ORAL) Take by mouth as needed. polyethylene glycol 3350 (MIRALAX, GLYCOLAX) 17 gram/dose powder Take 17 g by mouth as needed. vitamin b complex tab Take 1 tablet by mouth once daily. calcium carbonate/vitamin d3(CALCIUM 600 WITH VITAMIN D3 600 MG (1,500)-200 UNIT TAB) Take one(1) tablet twice daily. CENTRUM TABLET Take one(1) tablet daily. Social History Tobacco Use Smoking status: Former Types: Pipe, Cigarettes Quit date: 11/19/1979 Years since quittin.5 Smokeless tobacco: Never Tobacco comments: quit 30yrs ago. 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 /[employer] Pets: None FAMILY HISTORY Problem Relation Age of Onset Cancer Mother uterine GI Mother colon resection for diverticulitis Cancer Father non-melanoma skin ca Diabetes Father around age 50 Ischemic Heart Disease Father bypass at age 70 PAST SURGICAL HISTORY Procedure Laterality Date CLSR ANAL FSTL W/RCT ADVMNT FLAP 1998 COLECTOMY PARTIAL W/ANASTOMOSIS 07/11/2017 For sigmoid volvulus COLONOSCOPY 09/2015 COLONOSCOPY FLX DX W/COLLJ SPEC WHEN PFRMD 10/09/2019 Colonoscopy EXCISION PILONIDAL CYST/SINUS SIMPLE 1972 PAST SURGICAL HISTORY OF 09/2010 Sphincterotomy PAST SURGICAL HISTORY OF 2013 fistulotomy PAST SURGICAL HISTORY OF Right Laser Ablation on veins PAST SURGICAL HISTORY OF 1998 sphincterotomy PAST SURGICAL HISTORY OF 11/2020 CABG/AVR PAST SURGICAL HISTORY OF Left Quadriceps tendon RPLCMT PROST AORTIC VALVE OPEN XCP HOMOGRF/STENT 11/30/2020 PMH, Social history, family history and surgical history reviewed and updated in EMR REVIEW OF SYSTEMS: CONSTITUTIONAL: No fevers, chills, nightsweats, unintended weight loss, fatigue HEENT: Denies headaches, nasal congestion/sinus symptoms, allergy problems, postnasal drip. Frequent sneezing EYES: No diplopia or blurry vision, itchy eyes CARDIOVASCULAR: No chest pain, dyspnea, palpitations, orthopnea, PND. Chronic edema PULM: See HPI GI: No dysphagia/odynophagia, problematic reflux : BPH NEURO: No new balance problems, peripheral weakness/paresthesias or numbness of concern. MUSC-SKEL: No joint pain, swelling, or erythema. PSY: No concerns regarding depression, anxiety INTEGUMENTARY: No new skin changes, rashes. Easy bruising PHYSICAL EXAMINATION: BP 144/76 Pulse 69 Resp 14 Ht 5' 11 (1.80m) Wt 275 lb (124.7kg) SpO2 94% BMI 38.37 kg/(m^2). General Appearance: Obese elderly male, NAD Skin: Skin color, texture, turgor normal, no suspicious rashes or lesions. Few upper extremity ecchymoses Head: Normocephalic, no masses, lesions, tenderness or abnormalities. Eyes: Sclera, conjunctiva normal Oropharynx: Oral lesions, erythema or posterior pharyngeal cobblestoning Neck: No JVD, no masses, no adenopathy Lungs: Not labored, normal percussion, no wheezes or crackles Heart: Regular rate and rhythm, systolic murmur Extremities: Edema, no clubbing Musculoskeletal: No joint deformities or effusions Neurologic: Alert and oriented, no focal findings Lymph Nodes: No cervical lymphadenopathy and No supraclavicular lymphadenopathy. Assessment/Plan: 1. Cough variant asthma -Pulmonary function test show moderate obstruction with reversibility small airways postbronchodilator -Started Dulera 100/5. Can discontinue Protonix -Check allergic component 2. Obesity -Class II, BMI 38 -Obesity portends poor control. Weight loss advised Ioana Louis MD Res[facility] [place] documented in this encounterHigh[facility]01-16-2023 Nurse Note* Crista Chan LPN - 05/29/2022 9:25 AM EST Intake information documented in the prior visit with TUYET Sanders today. documented in this encounterHighland District Hospital01-16-2023 Procedure note* TUYET Sanders - 05/29/2022 9:23 AM ESTAssociated Order(s): NITRIC OXIDE, EXHALED RESPIRATORY THERAPY ORAL EXHALED NITRIC OXIDE SERVICE DATE: 05/29/2022 SERVICE TIME: 9:23 AM Oral Exhaled Nitric Oxide measurement: 18.0 (ppb) Normal: Adult 5-20 ppb, pediatric (<12 years) 5-15 ppb High Normal / Increased: Adult 20-35 ppb, pediatric (<12 years) 15-25 ppb Moderately raised exhaled Nitric Oxide may indicate underlying inflammation, but note that: Cold and influenza can raise exhaled Nitric Oxide and some patients have higher baseline exhaled Nitric Oxide levels than others. High: Adult >35 ppb, pediatric (<12 years) >25 ppb Indicative of ongoing eosinophilic inflammation. Symptomatic patient likely to respond to steroids. Possible causes (if already on steroids): Poor compliance, recent allergen exposure, steroid dose inadequate, and steroid resistance. Note that not all patients with high exhaled nitric oxide levels display symptoms. Oral Exhaled Nitric Oxide measurement (Previous Encounters) Test Date Oral Exhaled Nitric Oxide (ppb) 05/29/2022 18.0 NAME: TUYET Sanders PATIENT NAME: Donald Mayorga DATE: May 29, 2022 TIME: 9:23 AM documented in this encounterHighland District Hospital01-16-2023 History of Present illness Narrative* TUYET Sanders - 05/29/2022 9:04 AM EST PULM FUNCTION SMARTBLOCK: Provider: Ioana Louis MD Assisting Tech: TUYET Sanders Spirometry w/BD: 1 Exhaled Nitric Oxide: 1 documented in this encounterHighland District Hospital12-22-2022 Miscellaneous Notes* Telephone Encounter - Reina Zamora RN - 05/04/2022 12:28 PM EST Pt called and is notified of providers results. Pt voices understanding. Reina Zamora RN * Telephone Encounter - Antonio Stewart MD - 05/04/2022 11:56 AM EST Bp is ok * Telephone Encounter - Khadijah Vallecillo LPN - 05/04/2022 10:01 AM EST Manual Readin/69 Pulse: 65 Reason for blood pressure check - Last BP elevated Patient is: Taking medication as prescribed Yes Took medication today Yes If no, date medication last taken N/A Experiencing side effects No BP was elevated at last appt 04/04/22. No BP medication changes were made at that time. Taking all medications as prescribed. Denies any chest pain, shortness of breath, dizziness, or headaches. Daily caffeine use; none today. Past personal history of tobacco use; no current exposure. Alert and oriented. Pt has been identified by name and birthdate: Yes Allergies reviewed: Yes Latex allergy: no. Medication - prescribed and OTC reviewed and updated: Yes Do you need any prescription refills prior to your next visit: No Health Maintenance: Reviewed and not up to date and provider notified Patient advised to continue with current medications and would be contacted if any further instructions after review by PCP. Khadijah Vallecillo LPN documented in this encounterHighland District Hospital12-22-2022 History of Present illness Narrative* Khadijah Vallecillo LPN - 05/04/2022 9:56 AM EST Manual Readin/69 Pulse: 65 Reason for blood pressure check - Last BP elevated Patient is: Taking medication as prescribed Yes Took medication today Yes If no, date medication last taken N/A Experiencing side effects No BP was elevated at last appt 04/04/22. No BP medication changes were made at that time. Taking all medications as prescribed. Denies any chest pain, shortness of breath, dizziness, or headaches. Daily caffeine use; none today. Past personal history of tobacco use; no current exposure. Alert and oriented. Pt has been identified by name and birthdate: Yes Allergies reviewed: Yes Latex allergy: no. Medication - prescribed and OTC reviewed and updated: Yes Do you need any prescription refills prior to your next visit: No Health Maintenance: Reviewed and not up to date and provider notified Patient advised to continue with current medications and would be contacted if any further instructions after review by PCP. Khadijah Vallecillo LPN documented in this encounterHighland District Hospital12-06-2022 Miscellaneous Notes* Telephone Encounter - Katie Miramontes LPN - 04/18/2022 12:49 PM EST Patient notified and verbalized understanding of instructions given.Katie Miramontes LPN * Telephone Encounter - Henrry Baird APRN.CNP - 04/18/2022 9:19 AM EST Please notify positive for covid, negative for flu Follow the CDC guidelines for isolation: 1. Everyone, regardless of vaccination status, should stay home for 5 days. 2. If you have no symptoms or your symptoms are resolving after 5 days, you can leave your house. 3. Continue to wear a mask around others for 5 additional days. If you have a fever, continue to stay home until your fever resolves, even if it is longer than 5 days. Please monitor your symptoms, and for any worrisome symptoms, call your primary care provider or schedule a visit with [facility]. A test is not recommended to return to work/school when meeting the above criteria. -if would like treated for covid with antiviral medication options are: [facility]/best option Call primary care provider Return for another visit with express care. documented in this encounterHighland District Hospital12-05-2022 Miscellaneous Notes* Addendum Note - Henrry Baird APRN.CNP - 04/17/2022 1:37 PM ESTAddended by: HENRRY BAIRD on: 04/17/2022 01:37 PM Modules accepted: Orders documented in this encounterHighland District Hospital12-05-2022 Instructions* Patient Instructions* Henrry Baird APRN.CNP - 04/17/2022 12:19 PM EST FACT SHEET FOR PATIENTS, PARENTS, AND CAREGIVERS EMERGENCY USE AUTHORIZATION (EUA) OF PAXLOVID FOR CORONAVIRUS DISEASE 2019 (COVID-19) You are being given this Fact Sheet because your healthcare provider believes it is necessary to provide you with PAXLOVID for the treatment of gqms-ns-aeptyoum coronavirus disease (COVID-19) caused by the SARS-CoV-2 virus. This Fact Sheet contains information to help you understand the risks and benefits of taking the PAXLOVID you have received or may receive. The U.S. Food and Drug Administration (FDA) has issued an Emergency Use Authorization (EUA) to makePAXLOVID available during the COVID-19 pandemic (for more details about an EUA please see What is an Emergency Use Authorization? at the end of this document). PAXLOVID is not an FDA-approved medicine in the [place]. Read this Fact Sheet for information about PAXLOVID. Talk to your healthcareprovider about your options or if you have any questions. It is your choice to take PAXLOVID. What is COVID-19? COVID-19 is caused by a virus called a coronavirus. You can get COVID-19 through close contact withanother person who has the virus. COVID-19 illnesses have ranged from very sdsn-em-znksfg, including illness resulting in . While information so far suggests that most COVID-19 illness is mild, serious illness can happen and maycause some of your other medical conditions to become worse. Older people and people of all ages with severe, long lasting (chronic) medical conditions like heart disease, lung disease, and diabetes,for example seem to be at higher risk of being hospitalized for COVID-19. What is PAXLOVID? PAXLOVID is an investigational medicine used to treat arqu-ku-krkwfgiq COVID-19 in adults and children [12 years of age and older weighing at least 88 pounds (40 kg)] with positive results of direct SARS-CoV-2 viral testing, and who are at high risk for progression to severe COVID-19, including hospitalization or . PAXLOVID is investigational because it is still being studied. There is limited information about the safety and effectiveness of using PAXLOVID to treat people with woeg-za-hfwujopq COVID-19. The FDA has authorized the emergency use of PAXLOVID for the treatment of xuvj-vj-wklehhgb COVID-19in adults and children [12 years of age and older weighing at least 88 pounds (40 kg)] with a positive test for the virus that causes COVID-19, and who are at high risk for progression to severe COVID-19, including hospitalization or , under an EUA. 1 Revised: 29 July 2021 What should I tell my healthcare provider before I take PAXLOVID? Tell your healthcare provider if you: Have any allergies Have liver or kidney disease Are or plan to become Are a child Have any serious illnesses Tell your healthcare provider about all the medicines you take, including prescription and gtgk-pec-byudszg medicines, vitamins, and herbal supplements. Some medicines may interact with PAXLOVID and may cause serious side effects. Keep a list of your medicines to show your healthcare provider and pharmacist when you get a new medicine. You can ask your healthcare provider or pharmacist for a list of medicines that interact with PAXLOVID. Do not start taking a new medicine without telling your healthcare provider. Your healthcare provider can tell you if it is safe to take PAXLOVID with other medicines. Tell your healthcare provider if you are taking combined hormonal contraceptive. PAXLOVID may affect how your control pills work. Females who are able to become should use another effective alternative form of contraception or an additional barrier method of contraception. Talk to your healthcare provider if you have any questions about contraceptive methods thatmight be right for you. How do I take PAXLOVID? PAXLOVID consists of 2 medicines: nirmatrelvir and ritonavir. Take 2 pink tablets of nirmatrelvir with 1 white tablet of ritonavir by mouth 2 times each day (in the morning and in the evening) for 5 days. For each dose, take all 3 tablets at the same time. If you have kidney disease, talk to your healthcare provider. You may need a different dose. Swallow the tablets whole. Do not chew, break, or crush the tablets. Take PAXLOVID with or without food. Do not stop taking PAXLOVID without talking to your healthcare provider, even if you feel better. If you miss a dose of PAXLOVID within 8 hours of the time it is usually taken, take it as soon as you remember. If you miss a dose by more than 8 hours, skip the missed dose and take the next dose atyour regular time. Do not take 2 doses of PAXLOVID at the same time. If you take too much PAXLOVID, call your healthcare provider or go to the nearest hospital emergency room right away. If you are taking a ritonavir-or cobicistat-containing medicine to treat hepatitis C or Human Immunodeficiency Virus (HIV), you should continue to take your medicine as prescribed by your healthcare provider. Talk to your healthcare provider if you do not feel better or if you feel worse after 5 days. Who should generally not take PAXLOVID? Do not take PAXLOVID if: You are allergic to nirmatrelvir, ritonavir, or any of the ingredients in PAXLOVID You are taking any of the following medicines: Alfuzosin Pethidine, propoxyphene Ranolazine Amiodarone, dronedarone, flecainide, propafenone, quinidine Colchicine Lurasidone, pimozide, clozapine Dihydroergotamine, ergotamine, methylergonovine Lovastatin, simvastatin Sildenafil (Revatio ) for pulmonary arterial hypertension (PAH) Triazolam, oral midazolam Apalutamide Carbamazepine, phenobarbital, phenytoin Rifampin [place] s Wort (hypericum perforatum) Taking PAXLOVID with these medicines may cause serious or life-threatening side effects or affect how PAXLOVID works. These are not the only medicines that may cause serious side effects if taken with PAXLOVID. PAXLOVID may increase or decrease the levels of multiple other medicines. It is very important to tell your healthcare provider about all of the medicines you are taking because additional laboratory tests or changes in the dose of your other medicines may be necessary while you are taking PAXLOVID. Your healthcare provider may also tell you about specific symptoms to watch out for that may indicate that you need to stop or decrease the dose of some of your other medicines. What are the important possible side effects of PAXLOVID? Possible side effects of PAXLOVID are: Allergic Reactions. Allergic reactions can happen in people taking PAXLOVID, even after only 1 dose. Stop taking PAXLOVID and call your healthcare provider right away if you get any of the following symptoms of an allergic reaction: hives trouble swallowing or breathing swelling of the mouth, lips, or face throat tightness hoarseness skin rash Liver Problems. Tell your healthcare provider right away if you have any of these signs and symptoms of liver problems: loss of appetite, yellowing of your skin and the whites of eyes (jaundice), dark-colored urine, pale colored stools and itchy skin, stomach area (abdominal) pain. Resistance to HIV Medicines. If you have untreated HIV infection, PAXLOVID may lead to some HIV medicines not working as well in the future. Other possible side effects include: altered sense of taste diarrhea high blood pressure muscle aches These are not all the possible side effects of PAXLOVID. Not many people have taken PAXLOVID. Serious and unexpected side effects may happen. PAXLOVID is still being studied, so it is possible that all of the risks are not known at this time. What other treatment choices are there? Veklury (remdesivir) is FDA-approved for the treatment of sjdb-vo-sfzbitvw COVID-19 in certain adults and children. Talk with your doctor to see if Veklury is appropriate for you. Like PAXLOVID, FDA may also allow for the emergency use of other medicines to treat people with COVID-19. Go to https://www.fda.gov/ulqikmkfr-mqtofxkxgqen-skxnbxgjyky/gao-lpoix-ialorqfzul-and- policy-framework/gadzrqlmg-dsv-kwyeqarmwfkrs for information on the emergency use of other medicines that are authorized by FDA to treat people with COVID-19. Your healthcare provider may talk with you aboutclinical trials for which you may be eligible. It is your choice to be treated or not to be treated with PAXLOVID. Should you decide not to receive it or for your child not to receive it, it will not change your standard medical care. What if I am or ? There is macroeconomics professor treating women or mothers with PAXLOVID. For a motherand unborn baby, the benefit of taking PAXLOVID may be greater than the risk from the treatment. Ifyou are , discuss your options and specific situation with your healthcare provider. It is recommended that you use effective barrier contraception or do not have sexual activity whiletaking PAXLOVID. If you are , discuss your options and specific situation with your healthcare provider. How do I report side effects with PAXLOVID? Contact your healthcare provider if you have any side effects that bother you or do not go away. Report side effects to FDA MedWatch at www.fda.gov/medwatch or call 4-363-LTG2258 or you can reportside effects to [facility]. at the contact information provided below. Website Fax number Telephone number www.[employer] How should I store PAXLOVID? Store PAXLOVID tablets at room temperature, between 68?F to 77?F (20?C to 25?C). How can I learn more about COVID-19? Ask your healthcare provider. Visit https://www.cdc.gov/COVID19. Contact your local or state public health department. What is an Emergency Use Authorization (EUA)? The [place] FDA has made PAXLOVID available under an emergency access mechanism called an Emergency Use Authorization (EUA). The EUA is supported by a Assistant Dean Of Students of Health and Human Service (HHS) declaration that circumstances exist to justify the emergency use of drugs and biological productsduring the COVID-19 pandemic. PAXLOVID for the treatment of qjon-wm-iqsradbk COVID-19 in adults and children [12 years of age andolder weighing at least 88 pounds (40 kg)] with positive results of direct SARS-CoV-2 viral testing, and who are at high risk for progression to severe COVID-19, including hospitalization or , has not undergone the same type of review as an FDA-approved product. In issuing an EUA under the COVID-19 public health emergency, the FDA has determined, among other things, that based on the total amount of scientific evidence available including data from adequate and well-controlled clinical trials, if available, it is reasonable to believe that the product may be effective for diagnosing, treating, or preventing COVID-19, or a serious or life-threatening disease or condition caused by COVID-19; that the known and potential benefits of the product, when used to diagnose, treat, or prevent such disease or condition, outweigh the known and potential risks of such product; and that there are no adequate, approved, and available alternatives. All of these criteria must be met to allow for the product to be used in the treatment of patients during the COVID-19 pandemic. The EUA for PAXLOVID is in effect for the duration of the COVID-19 declaration justifying emergency use of this product, unless terminated or revoked (after which the products may no longer be used under the EUA). Additional Information For general questions, visit the website or call the telephone number provided below. Website Telephone number [employer] (1-268-C02-DVML) You can also go to www.[employer] or call for more information. Pfizer Distributed by [employer] [facility] [place] [address] [id number] Revised: 29 July 2021 [facility] History of Present illness Narrative* Henrry Baird APRN.NAY - 04/17/2022 12:04 PM EST Subjective HPI HPI Donald Mayorga is a 76 year old male who presents today for CC of cough, congestion, fever. This started 1 day ago. Has tried otc medication for relief. Symptoms are worsened by nothing. Risk factors no known sick exposure. .Patient presents with: Cough: Stuffy nose, congestion x1 day PAST MEDICAL HISTORY Diagnosis Date Anal fissure Aortic stenosis moderate Basal cell carcinoma of forehead 2010 BPH with obstruction/lower urinary tract symptoms Colon polyps Degenerative skin disorder 2003 venous leg ulcers. improved w Trental. Disorder of bone and cartilage, unspecified since 1994 mild -penia at femoral neck only Esophageal reflux Gastroesophageal reflux Hydrocele 05/21/2011 Personal history of unspecified disease eosinophilc fasciitis [id number]. remission since 1995. 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 PVD (peripheral vascular disease) (HCC) Rosacea 01/25/2007 Shingles 2010 left facial - treated with antiviral and gabapentin PAST SURGICAL HISTORY Procedure Laterality Date CLSR ANAL FSTL W/RCT ADVMNT FLAP 1998 COLECTOMY PARTIAL W/ANASTOMOSIS 07/11/2017 For sigmoid volvulus COLONOSCOPY 09/2015 COLONOSCOPY FLX DX W/COLLJ SPEC WHEN PFRMD 10/09/2019 Colonoscopy EXCISION PILONIDAL CYST/SINUS SIMPLE 1972 PAST SURGICAL HISTORY OF 09/2010 Sphincterotomy PAST SURGICAL HISTORY OF 2014 fistulotomy PAST SURGICAL HISTORY OF Right Laser Ablation on veins PAST SURGICAL HISTORY OF 1998 sphincterotomy RPLCMT PROST AORTIC VALVE OPEN XCP HOMOGRF/STENT 11/30/2020 ALLERGIES Amitriptyline, Augmentin [Amoxicillin-Pot Clavulanate], Clavulanic Acid, Hydromorphone, and Ibuprofen MEDICATIONS dilTIAZem ointment 2% (CPD) by RECTAL route twice daily. LORazepam (ATIVAN) 0.5 mg Take 1 tablet by mouth three times daily as needed for up to 30 days. metoprolol tartrate, short acting, (LOPRESSOR) 50 mg tablet Take 1 tablet by mouth every 12 hours. amLODIPine (NORVASC) 5 mg tablet Take 1 tablet by mouth once daily. furosemide (LASIX) 20 mg tablet Take 1 tablet by mouth once daily. pantoprazole DR (PROTONIX) 40 mg tablet Take 1 tablet by mouth daily before breakfast. Take on empty stomach, 1/2 hr before meal. tiZANidine (ZANAFLEX) 4 mg tablet 1/2 to 1 tab q8h as needed for pain/ spasm tamsulosin (FLOMAX) 0.4 mg TAKE 1 CAPSULE BY MOUTH EVERY DAY rosuvastatin (CRESTOR) 20 mg tablet TAKE 1 TABLET BY MOUTH EVERYDAY AT BEDTIME finasteride (PROSCAR) 5 mg tablet TAKE 1 TABLET DAILY venlafaxine ER (EFFEXOR XR) 37.5 mg 24 hr capsule Take 1 capsule by mouth once daily. acetaminophen (TYLENOL) 500 mg tablet Take 2 tablets by mouth every 6 hours. melatonin 3 mg tablet Take 1 tablet by mouth at bedtime as needed for for insomnia. senna-docusate (SENNA-S) 8.6-50 mg per tablet Take 1 tablet by mouth twice daily. simethicone, chewable (MYLICON) 80 mg chewable tablet Take 1 tablet by mouth four times daily as needed. cholecalciferol, vitamin D3, (VITAMIN D3 ORAL) Take 1 capsule by mouth once daily. aspirin, enteric coated (ASPIRIN, ENTERIC COATED) 81 mg EC tablet Take 81 mg by mouth once daily. Zinc 50 mg tab Take by mouth once daily. Biotin 10,000 mcg cap Take by mouth once daily. docusate sodium (COLACE ORAL) Take by mouth as needed. polyethylene glycol 3350 (MIRALAX, GLYCOLAX) 17 gram/dose powder Take 17 g by mouth as needed. vitamin b complex tab Take 1 tablet by mouth once daily. calcium carbonate/vitamin d3(CALCIUM 600 WITH VITAMIN D3 600 MG (1,500)-200 UNIT TAB) Take one(1) tablet twice daily. CENTRUM TABLET Take one(1) tablet daily. FAMILY HISTORY Problem Relation Age of Onset Cancer Mother uterine GI Mother colon resection for diverticulitis Cancer Father non-melanoma skin ca Diabetes Father around age 50 Ischemic Heart Disease Father bypass at age 70 Social History Tobacco Use Smoking status: Former Types: Pipe Quit date: 11/19/1979 Years since quittin.4 Smokeless tobacco: Never Tobacco comments: quit 30yrs ago Vaping Use Vaping Use: Never used Substance Use Topics Alcohol use: Yes Comment: 1 beer daily Drug use: No ROS Objective Blood pressure 138/74, pulse 90, temperature 37.8 C (100.1 F), resp. rate 20, weight 125.9 kg (277 lb 9.6 oz), SpO2 96 %. Physical Exam Constitutional: General: He is not in acute distress. Appearance: He is not toxic-appearing or diaphoretic. HENT: Head: Normocephalic and atraumatic. Cardiovascular: Rate and Rhythm: Normal rate and regular rhythm. Heart sounds: Normal heart sounds, S1 normal and S2 normal. Pulmonary: Effort: Accessory muscle usage (slight) present. Breath sounds: Normal breath sounds. No decreased breath sounds, wheezing, rhonchi or rales. Lymphadenopathy: Cervical: No cervical adenopathy. Right cervical: No superficial cervical adenopathy. Left cervical: No superficial cervical adenopathy. Neurological: Mental Status: He is alert and oriented to person, place, and time. Gait: Gait is intact. ASSESSMENT/PLAN: 1. URI, acute - ICD9: 465.9, ICD10: J06.9 (primary diagnosis) Suspect flu vs covid - Discussed viral etiology and rationale for treatment. - Symptomatic treatment with prn analgesia - Supportive care with fluids and rest - Follow up in 3-5 days if symptoms persist or sooner if worsening of symptoms Worsening s/s at all go to ER Info given on paxlovid. 2. Influenza-like illness - ICD9: 487.1, ICD10: J11.1 Tamiflu rx provided if positive. - OSELTAMIVIR 75 MG CAPSULE Henrry Baird APRN.TELECOM ASSISTANT documented [facility] Miscellaneous Notes* Telephone Encounter - Kimberlyn Clifton LPN - 04/17/2022 8:42 AM EST Patient calling was asking if he could take Zyrtec with his other medications, he started yesterdaywith runny nose, watery eyes, coughing, congestion. Asked if could have been exposed to someone with COVID. he said could have but not sure. Advised patient to go to [facility] for evaluation, may need COVID tested also. documented in this [facility]High[facility]12-[facility]22 Miscellaneous Notes* Telephone Encounter - Camila Ennis LPN - 04/14/2022 4:16 PM EST Patient notified. * Telephone Encounter - Antonio Stewart MD - 04/14/2022 4:08 PM EST We can do before his next visit. * Telephone Encounter - Heydi Pyle LPN - 04/14/2022 2:49 PM EST Pt calls asking about hid cholesterol results. He said can not find results. This nurse sees these labs were set out to future for this May. Were not drawn. Pt states he was sure doctor wanted them drawn this time. Asking if this was a mistake them not being drawn? documented in [facility]High[facility]11-30-[facility]22 Miscellaneous Notes* Telephone Encounter - Juani Cordova RN - 04/12/2022 8:16 AM EST Phoned patient and given provider's message below with verbalized understanding. Patient agreeable. * Telephone Encounter - Antonio Stewart MD - 04/11/2022 5:20 PM EST Labs are overall ok other than platelets are slightly low again. They were once before. Recheck platelet count in two weeks documented in [facility]High[facility] History of Present illness Narrative* Antonio Stewart MD - 04/04/2022 3:49 PM EST Patient presents with: 6 Month Exam HPI: Patient presents today for office visit for follow up. HTN: BP stable. Does not check often at home. No chest pain No shortness of breath No dizziness No headaches No edema Back to seeing [facility]. Had echo in July. Sees them again in May., HLD: No myalgias. Tolerating Rosuvastatin 20 mg daily. Sees Urology. Taking Tamsulosin and Finasteride. No urinary issues. Neurosurgery: said he does not need checked again for three to five years after last ov. Seeing rheum once a year. Had recommended seeing ortho. Using tylenol. Has chronic knee pain. Insomnia: Using Melatonin. Sleeps well. Feeling rested upon waking. Has a chronic cough. Has seen ENT. Has had chest xrays. Has been seeing ent. Not helping. Had cta and pfts's done in 2020 No heartburn. Pantoprazole has not helped. Uses ativan sparingly. Oarrs done. No current rectal pain. MEDICATIONS: Current Outpatient Medications Medication Sig dilTIAZem ointment 2% (CPD) by RECTAL route twice daily. LORazepam (ATIVAN) 0.5 mg Take 1 tablet by mouth three times daily as needed for up to 30 days. metoprolol tartrate, short acting, (LOPRESSOR) 50 mg tablet Take 1 tablet by mouth every 12 hours. amLODIPine (NORVASC) 5 mg tablet Take 1 tablet by mouth once daily. furosemide (LASIX) 20 mg tablet Take 1 tablet by mouth once daily. pantoprazole DR (PROTONIX) 40 mg tablet Take 1 tablet by mouth daily before breakfast. Take on empty stomach, 1/2 hr before meal. tiZANidine (ZANAFLEX) 4 mg tablet 1/2 to 1 tab q8h as needed for pain/ spasm tamsulosin (FLOMAX) 0.4 mg TAKE 1 CAPSULE BY MOUTH EVERY DAY rosuvastatin (CRESTOR) 20 mg tablet TAKE 1 TABLET BY MOUTH EVERYDAY AT BEDTIME finasteride (PROSCAR) 5 mg tablet TAKE 1 TABLET DAILY venlafaxine ER (EFFEXOR XR) 37.5 mg 24 hr capsule Take 1 capsule by mouth once daily. acetaminophen (TYLENOL) 500 mg tablet Take 2 tablets by mouth every 6 hours. melatonin 3 mg tablet Take 1 tablet by mouth at bedtime as needed for for insomnia. senna-docusate (SENNA-S) 8.6-50 mg per tablet Take 1 tablet by mouth twice daily. simethicone, chewable (MYLICON) 80 mg chewable tablet Take 1 tablet by mouth four times daily as needed. cholecalciferol, vitamin D3, (VITAMIN D3 ORAL) Take 1 capsule by mouth once daily. aspirin, enteric coated (ASPIRIN, ENTERIC COATED) 81 mg EC tablet Take 81 mg by mouth once daily. Zinc 50 mg tab Take by mouth once daily. Biotin 10,000 mcg cap Take by mouth once daily. docusate sodium (COLACE ORAL) Take by mouth as needed. polyethylene glycol 3350 (MIRALAX, GLYCOLAX) 17 gram/dose powder Take 17 g by mouth as needed. vitamin b complex tab Take 1 tablet by mouth once daily. calcium carbonate/vitamin d3(CALCIUM 600 WITH VITAMIN D3 600 MG (1,500)-200 UNIT TAB) Take one(1) tablet twice daily. CENTRUM TABLET Take one(1) tablet daily. No current facility-administered medications for this visit. ALLERGIES: ALLERGIES Allergen Reactions Amitriptyline Mental Status Change Augmentin [Amoxicil* Diarrhea, GI Upset Clavulanic Acid Diarrhea Hydromorphone Other: See Comments [place] very dopey and nauseated Ibuprofen Other: See Comments ulcer from high doses PAST MEDICAL HISTORY Diagnosis Date Anal fissure Aortic stenosis moderate Basal cell carcinoma of forehead 2010 BPH with obstruction/lower urinary tract symptoms Colon polyps Degenerative skin disorder 2003 venous leg ulcers. improved w Trental. Disorder of bone and cartilage, unspecified since 1994 mild -penia at femoral neck only Esophageal reflux Gastroesophageal reflux Hydrocele 05/21/2011 Personal history of unspecified disease eosinophilc fasciitis [id number]. remission since 1995. 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 PVD (peripheral vascular disease) ([facility]) Rosacea 01/25/2007 Shingles 2010 left facial - treated with antiviral and gabapentin PAST SURGICAL HISTORY Procedure Laterality Date CLSR ANAL FSTL W/RCT ADVMNT FLAP 1998 COLECTOMY PARTIAL W/ANASTOMOSIS 07/11/2017 For sigmoid volvulus COLONOSCOPY 09/2015 COLONOSCOPY FLX DX W/COLLJ SPEC WHEN PFRMD 10/09/2019 Colonoscopy EXCISION PILONIDAL CYST/SINUS SIMPLE 1972 PAST SURGICAL HISTORY OF 09/2010 Sphincterotomy PAST SURGICAL HISTORY OF 2013 fistulotomy PAST SURGICAL HISTORY OF Right Laser Ablation on veins PAST SURGICAL HISTORY OF 1998 sphincterotomy RPLCMT PROST AORTIC VALVE OPEN XCP HOMOGRF/STENT 11/30/2020 FAMILY HISTORY Problem Relation Age of Onset Cancer Mother uterine GI Mother colon resection for diverticulitis Cancer Father non-melanoma skin ca Diabetes Father around age 50 Ischemic Heart Disease Father bypass at age 70 Social History Tobacco Use Smoking status: Former Types: Pipe Quit date: 11/19/1979 Years since quittin.4 Smokeless tobacco: Never Tobacco comments: quit 30yrs ago Vaping Use Vaping Use: Never used Substance Use Topics Alcohol use: Yes Comment: 1 beer daily Drug use: No Reviewed current medications, allergies, past medical history, surgical history, family history andsocial history today. REVIEW OF SYSTEMS All other reviewed and negative other than HPI. HEALTH MAINTENANCE: Reviewed health maintenance issues today VITALS: BP 140/80 Pulse 72 Ht 185.4 cm (6' 1 ) Wt 123.5 kg (272 lb 3.2 oz) SpO2 95% BMI 35.91 kg/m Last 4 Encounter Wt Readings: Date: Wt: 12/05/2021 119.3 kg (263 lb) 10/26/2021 122.5 kg (270 lb) 10/12/2021 120.7 kg (266 lb) 08/01/2021 119.3 kg (263 lb) PHYSICAL EXAMINATION: General appearance: Well appearing, alert, in no acute distress, well-hydrated, well nourished. Skin: Skin color, texture, turgor normal, no suspicious rashes or lesions Head: Normocephalic, no masses, lesions, tenderness or abnormalities Neck: Supple, no adenopathy; thyroid symmetric, normal size, no bruits Lungs: Lungs clear to auscultation. No wheezing, rhonchi, rales Heart: RRR without murmur, gallop, or rubs. No ectopy Abdomen: Normal abdominal exam, Abdomen soft, non-tender. Bowel sounds normal. No masses, organomegaly Extremities: No deformities, edema, skin discoloration, clubbing or cyanosis. Good capillary refill. Musculoskeletal: No joint swelling, deformity, or tenderness ASSESSMENT/PLAN: 1. Chronic diastolic congestive heart failure (HCC) - ICD9: 428.32, 428.0, ICD10: I50.32 (primary diagnosis) -stable. 2. Coronary artery disease involving [place] coronary artery of [place] heart without angina pectoris- ICD9: 414.01, ICD10: I25.10 - call if any issues. Sees cardiology. 3. Other hyperlipidemia - ICD9: 272.4, ICD10: E78.49 - CBC - COMP METABOLIC PANEL - LIPID PANEL BASIC 4. Paroxysmal atrial fibrillation (HCC) - ICD9: 427.31, ICD10: I48.0 - continue meds. 5. Severe aortic stenosis - ICD9: 424.1, ICD10: I35.0 - per cardiology 6. Gastroesophageal reflux disease, unspecified whether esophagitis present - ICD9: 530.81, ICD10: K21.9 - stable. 7. BPH with obstruction/lower urinary tract symptoms - ICD9: 600.01, 599.69, ICD10: N40.1, N13.8 8. Malignant neoplasm of skin - ICD9: 173.90, ICD10: C44.90 - per derm 9. Cerebral aneurysm, nonruptured - ICD9: 437.3, ICD10: I67.1 - does not need rechecked soon 10. Eosinophilic fasciitis - ICD9: 728.89, ICD10: M35.4, D72.18 - stable 11. Chronic cough - ICD9: 786.2, ICD10: R05.3 - CONSULT TO PULM/CRITICAL CARE Antonio Stewart MD documented in this [facility]10[facility]22 Miscellaneous Notes* Telephone Encounter - Camila Ennis LPN - 03/01/2022 2:34 PM EDT Patient is fine with this. He was actually expecting the diltiazem ointment. * Telephone Encounter - Antonio Stewart MD - 03/01/2022 1:55 PM EDT Check if patient willing to switch. * Telephone Encounter - Leanne Flood RN - 03/01/2022 1:50 PM EDT Ej from [facility] pharmacy calls and states that they do not have nifedipine ointment. Ej asking ifprovider would change order to Diltiazem 2% ointment? Pharmacy has that in stock. Please review and advise, Leanne Flood RN documented in this encounterHigh[facility] Hospital10-03-2022 Miscellaneous Notes* Telephone Encounter - Micaela Fernandes MA - 02/13/2022 12:02 PM EDT Patient has been identified by name and date of : Yes Requested Prescriptions Pending Prescriptions Disp Refills LORazepam (ATIVAN) 0.5 mg 30 tablet 0 Sig: Take 1 tablet by mouth three times daily as needed for up to 30 days. RX INSTRUCTIONS: Patient aware RX will be sent to pharmacy. No need to notify patient. Micaela Fernandes MA Del: 10/2021 Nov: 03/2022 Last refill: 06/2020 documented in this encounterHigh[facility]09-26-2022 Miscellaneous Notes* Telephone Encounter - Nikole Membreno Ma - 02/06/2022 11:37 AM EDT Vaccines updated. Nikole Membreno Ma documented in this encounterHighland [facility] Hospital08-22-2022 History of Present illness Narrative* Di Camacho RN - 01/02/2022 4:16 PM EDT INSIGHT CDM ESCALATION Provider Action/FYI: Worsening swelling legs. Spoke with Cards office and will increase lasix x 3 days and check with them then. Instructed on dietary discretion and elevation of legs as much of the time as possible. Message received via: [facility] - Yes contact made with patient ACTION TAKEN: Based on law enforcement instructor, the following disposition is advised: SYMPTOMS PRESENT NOT SEVERE: No action required - Continue outreach / Phone Call documented in this encounterHigh[facility]08-09-2022 Miscellaneous Notes* Telephone Encounter - Ioana Stinson Ma - 12/20/2021 4:58 PM EDT Patient last visit with PCP 10/26/21 Follow up appointment scheduled 02/03/22 Ioana Stinson Ma documented in this encounterHigh[facility] Hospital07-26-2022 Miscellaneous Notes* Telephone Encounter - Tami Resendiz MA - 12/06/2021 1:11 PM EDT Attempted to reach patient. Phone ringing constantly, unable to leave message. Will have to try to reach patient at another time. Tami Resendiz MA * Telephone Encounter - Steven Rojas MD - 12/06/2021 12:51 PM EDT Please relay my message to him. Let me know if he'd like an ortho referral. Thanks. documented in this [facility]07-26-2022 Miscellaneous Notes* Telephone Encounter - Delmy Salmeron LPN - 12/06/2021 8:03 AM EDT Patient's pharmacy requesting new refill. Refused Prescriptions Disp Refills furosemide (LASIX) 40 mg tablet [Pharmacy Med Name: FUROSEMIDE 40 MG TABLET] 180 tablet 0 Sig: TAKE 1 TABLET BY MOUTH TWICE A DAY INES: No Refused By: DELMY SALMERON Reason for Refusal: Patient no longer under Prescriber care Reason for Refusal Comment: He is no longer a patient at [facility]. Delmy Salmeron LPN documented in this encounterHighland [facility] Hospital07-25-2022 Miscellaneous Notes* Addendum Note - Yudy Michael RN - 12/05/2021 2:32 PM EDT Addended by: YUDY MICHAEL on: 12/05/2021 02:32 PM Modules accepted: Orders documented in this encounterHighland District Hospital07-25-2022 History of Present illness Narrative* Yudy Michael RN - 12/05/2021 1:55 PM EDT [facility] CDM Enrollment Provider Action/FYI: 2nd outreach attempt- answered and stated pt is unavailable and requested to call back in 5 minutes and pt would be available. 3rd outreach attempt placed. Spoke with pt. Denies new or worsening shortness of breath or swelling. Does not check BP at home. Taken today 120/62 at urology. Denies feeling dehydrated. Checks weight weekly, Denies sudden weight gain. Patient referred by: [facility] [place] Contact made with patient: Yes - Patient identified by name and . Discussed care with patient Ceci this is Yudy Michael RN and I am calling from Antonio Stewart MD office at the [facility]. I am a RN Cutting Room Supervisor with our [employer] Chronic Disease Management program. Antonio Stewart MD wanted me to reach out to help you manage your health at home. Our goal is to keep you well at home. We want to help you manage your chronic disease by providing a safety net of resources around you, getting you the care you need in a timely manner, and hopefully keep you out of the ED and hospital. I will send you a few questions once a week through your [employer] account. It will automatically show up for you to complete. There are simple questions that will help us identify if you have a [place] concerns or symptoms and I will call you to help get what you need. We will be able to connect you, review your symptoms, do an on demand visit, or communicate with Antonio Stewart MD if needed. Yordy going to sign you up for the program now. Enrollment Questions: Let's get you enrolled in the program. Yes, Do you have regular access to a computer/smartphone? Yes. [employer] access via [facility]. Goal Setting: I would like to take some time today to discuss your personal health goals. Yes, patient has goals. Capture the goal the patient wants to accomplish: Weight loss and gaining strength. Does the goal align with programs offered at the [facility]? Yes Chronic Disease Management patient goals yes: Weight loss Most people know what to do to become healthier, yet struggle to put it into action on their own.Itcan be hard to maintain a healthy lifestyle, especially when life is so stressful. Can we connect you with a [facility] [place] to find a program that could help you meet your goals? No Closing: Patient accepts home care consultant Thank you for your time today. I am excited to work together in managing your health! You will receive information on next steps through your [employer] account, and I will check back within a few weeks to ensure you have all that you need to use the program successfully. (Place name in care team and assign [employer] Assault Amphibious Vehicle Officer questionnaire) documented in this encounterHighland [facility] Hospital06-15-2022 History of Present illness Narrative* Antonio Stewart MD - 10/26/2021 2:04 PM EDT Patient presents with: Follow Up: 2 weeks-cough maybe a little better still there-legs not really improved HPI: Patient presents today for office visit for follow up. INTERIM HX: Placed on steroids and protonix. Cough is improving. Discussed staying on the meds. No shortness of breath at this point. Still fatigued although not as bad. He feels like his prednisone may have helped. Still having leg pain. Discussed having him see rheumatology if continues. He is using tylenol prn pain. Sees cardiology soon. No chest pain or shortness of breath. Offered to set up rheumatology referral but will wait. See previous ov: Has noted fatigue for the last week. Was working in the garage and was doing a lot of standing from a seated position. His knees were bothering him and seems to go along with this. Has seen rheum several tiems in the past and wonders if similar to that. See Dr. Rojas's notes: In , diagnosed with biopsy proven eosinophilic fasciitis (biopsy done from wrist), by back end web developer Dr. Hill (in shoulders, wrists, hands and knees). Presented with joint pain (wrists, fingers, knees) and minor hand swelling. Treated long-term with HCQ and prednisone. These were eventuallydiscontinued. - Since , in remission. Later seen by Dr. Ruiz. Labs with +MACARENA and +SSA. No evidence for active autoimmune CTD - Hx of osteopenia, treated with fosamax for 10-13 years discontinued in - In September, seen by Dr. Rodriguez. With knee pain attributed to patellofemoral syndrome. No improvement with steroid or euflexxa infections. Advised to continue meloxicam every other day. - May MRI R knee with torn meniscus, quadriceps tendon tear. Was advised by ortho to do injections - In Jun, reported continuing to do bilateral RANDALL knee injections via [facility]. Had done PTfor the knees in the past. No new fever or chills. Does not feel sick. No sore throat. No ear pain. No shortness of breath. No pain. No palpitations. No nausea, vomiting or diarrhea. No urinary issues. No rashes. Does have chronic cough. Does occasionally bring things up. Has been there since first of the year. Was having a lot of nasal congestion and saw ENT for same. No worsening heartburn. Used to be on meds for gerd while on mobic. Did have some after eating occasionally. Component Latest Ref Rng & Units 10/12/2021 10/21/2021 10/22/2021 WBC 3.70 - 11.00 k/uL 5.71 6.83 RBC 4.20 - 6.00 m/uL 4.03 (L) 4.44 Hemoglobin 13.0 - 17.0 g/dL 12.8 (L) 13.7 Hematocrit 39.0 - 51.0 % 37.6 (L) 41.5 MCV 80.0 - 100.0 fL 93.3 93.5 MCH 26.0 - 34.0 pg 31.8 30.9 MCHC 30.5 - 36.0 g/dL 34.0 33.0 RDW-CV 11.5 - 15.0 % 15.5 (H) 14.9 Platelet Count 150 - 400 k/uL 176 167 MPV 9.0 - 12.7 fL 10.3 10.2 Neut% % 71.2 73.0 Abs Neut (ANC) 1.45 - 7.50 k/uL 4.07 4.98 Lymph% % 15.4 13.0 Abs Lymph 1.00 - 4.00 k/uL 0.88 (L) 0.89 (L) [place]% % 9.3 10.1 Abs [place] <0.87 k/uL 0.53 0.69 Eosin% % 2.3 2.5 Abs Eosin <0.46 k/uL 0.13 0.17 Baso% % 0.7 0.7 Abs Baso <0.11 k/uL 0.04 0.05 Immature Gran % % 1.1 0.7 IMMATURE GRANS (ABS) <0.10 k/uL 0.06 0.05 NRBC /100 WBC 0.0 0.0 Absolute nRBC <0.01 k/uL <0.01 <0.01 DTYPE Auto Auto Protein, Total 6.3 - 8.0 g/dL 6.9 Albumin 3.9 - 4.9 g/dL 4.2 Calcium 8.5 - 10.2 mg/dL 9.5 Bilirubin, Total 0.2 - 1.3 mg/dL 0.3 Alkaline Phosphatase 38 - 113 U/L 60 AST 14 - 40 U/L 30 ALT 10 - 54 U/L 30 Glucose 74 - 99 mg/dL 93 BUN 9 - 24 mg/dL 20 Creatinine 0.73 - 1.22 mg/dL 0.90 Sodium 136 - 144 mmol/L 140 Potassium 3.7 - 5.1 mmol/L 4.5 Chloride 97 - 105 mmol/L 101 CO2 22 - 30 mmol/L 28 Anion Gap 9 - 18 mmol/L 11 eGFR >=60 mL/min/1.73m 90 Iron 41 - 186 ug/dL 85 TIBC 232 - 386 ug/dL 345 Transferrin Saturation 15 - 57 % 25 Hemoglobin A1C 4.3 - 5.6 % 4.9 Estimated Average Glucose mg/dL 94 WSR 0 - 15 mm/hr 22 (H) CRP <0.9 mg/dL <0.3 CK 51 - 298 U/L 111 Magnesium 1.7 - 2.3 mg/dL 2.3 NT Pro BNP <125 pg/mL 209 (H) TSH 0.270 - 4.200 mIU/L 1.610 Vitamin B12 232-1,245 pg/mL 909 Folate >4.7 ng/mL >20.0 Ferritin 30.3 - 565.7 ng/mL 109.0 Occult Blood, Stool Negative Negative MEDICATIONS: Current Outpatient Medications Medication Sig pantoprazole DR (PROTONIX) 40 mg tablet Take 1 tablet by mouth daily before breakfast. Take on empty stomach, 1/2 hr before meal. furosemide (LASIX) 40 mg tablet TAKE 1 TABLET BY MOUTH TWICE A DAY (Patient taking differently: Take 40 mg by mouth once daily. ) tamsulosin (FLOMAX) 0.4 mg TAKE 1 CAPSULE BY MOUTH EVERY DAY rosuvastatin (CRESTOR) 20 mg tablet TAKE 1 TABLET BY MOUTH EVERYDAY AT BEDTIME finasteride (PROSCAR) 5 mg tablet TAKE 1 TABLET DAILY venlafaxine ER (EFFEXOR XR) 37.5 mg 24 hr capsule Take 1 capsule by mouth once daily. amLODIPine (NORVASC) 5 mg tablet Take 1 tablet by mouth once daily. metoprolol tartrate, short acting, (LOPRESSOR) 50 mg tablet Take 1 tablet by mouth every 12 hours. melatonin 3 mg tablet Take 1 tablet by mouth at bedtime as needed for for insomnia. cholecalciferol, vitamin D3, (VITAMIN D3 ORAL) Take 1 capsule by mouth once daily. aspirin, enteric coated (ASPIRIN, ENTERIC COATED) 81 mg EC tablet Take 81 mg by mouth once daily. Zinc 50 mg tab Take by mouth once daily. Biotin 10,000 mcg cap Take by mouth once daily. vitamin b complex (BALANCE B-50) tab Take 1 tablet by mouth once daily. calcium carbonate/vitamin d3(CALCIUM 600 WITH VITAMIN D3 600 MG (1,500)-200 UNIT TAB) Take one(1) tablet twice daily. CENTRUM TABLET Take one(1) tablet daily. tiZANidine (ZANAFLEX) 4 mg tablet 1/2 to 1 tab q8h as needed for pain/ spasm NIFEdipine topical ointment 0.2% (CPD) by RECTAL route twice daily. acetaminophen (TYLENOL) 500 mg tablet Take 2 tablets by mouth every 6 hours. senna-docusate (SENNA-S) 8.6-50 mg per tablet Take 1 tablet by mouth twice daily. simethicone, chewable (MYLICON) 80 mg chewable tablet Take 1 tablet by mouth four times daily as needed. LORazepam (ATIVAN) 0.5 mg Take 1 tablet by mouth three times daily as needed for up to 30 days. docusate sodium (COLACE ORAL) Take by mouth as needed. polyethylene glycol 3350 (MIRALAX) 17 gram/dose powder Take 17 g by mouth as needed. Current Facility-Administered Medications Medication Dose Route Frequency perflutren lipid microspheres 1.3 mL in NaCl (PF) 0.9% 10 mL injection (DEFINITY) INTRAVENOUS DIRECTED PRN sodium chloride 0.9 % (flush) 10 mL (BD POSIFLUSH) 10 mL INTRAVENOUS DIRECTED PRN ALLERGIES: ALLERGIES Allergen Reactions Amitriptyline Mental Status Change Augmentin [Amoxicil* Diarrhea, GI Upset Clavulanic Acid Diarrhea Hydromorphone Other: See Comments [place] very dopey and nauseated Ibuprofen Other: See Comments ulcer from high doses PAST MEDICAL HISTORY Diagnosis Date Anal fissure Aortic stenosis moderate Basal cell carcinoma of forehead 2010 BPH with obstruction/lower urinary tract symptoms Colon polyps Degenerative skin disorder 2003 venous leg ulcers. improved w [place]. Disorder of bone and cartilage, unspecified since 1994 mild -penia at femoral neck only Esophageal reflux Gastroesophageal reflux Hydrocele 05/21/2011 Personal history of unspecified disease eosinophilc fasciitis 7004-9389. remission since 1995. 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 PVD (peripheral vascular disease) (HCC) Rosacea 01/25/2007 Shingles 2010 left facial - treated with antiviral and gabapentin PAST SURGICAL HISTORY Procedure Laterality Date CLSR ANAL FSTL W/RCT ADVMNT FLAP 1998 COLECTOMY PARTIAL W/ANASTOMOSIS 07/11/2017 For sigmoid volvulus COLONOSCOPY 09/2015 COLONOSCOPY FLX DX W/COLLJ SPEC WHEN PFRMD 10/09/2019 Colonoscopy EXCISION PILONIDAL CYST/SINUS SIMPLE 1972 PAST SURGICAL HISTORY OF 09/2010 Sphincterotomy PAST SURGICAL HISTORY OF 2013 fistulotomy PAST SURGICAL HISTORY OF Right Laser Ablation on veins PAST SURGICAL HISTORY OF 1998 sphincterotomy RPLCMT PROST AORTIC VALVE OPEN XCP HOMOGRF/STENT 11/30/2020 FAMILY HISTORY Problem Relation Age of Onset Cancer Mother uterine GI Mother colon resection for diverticulitis Cancer Father non-melanoma skin ca Diabetes Father around age 50 Ischemic Heart Disease Father bypass at age 70 Social History Tobacco Use Smoking status: Former Smoker Types: Pipe Quit date: 11/19/1979 Years since quittin.9 Smokeless tobacco: Never Used Tobacco comment: quit 30yrs ago Vaping Use Vaping Use: Never used Substance Use Topics Alcohol use: Yes Comment: 1 beer daily Drug use: No Reviewed current medications, allergies, past medical history, surgical history, family history andsocial history today. REVIEW OF SYSTEMS All other reviewed and negative other than HPI. HEALTH MAINTENANCE: Reviewed health maintenance issues today and recommended the following in detail. ADVANCE DIRECTIVE DISCUSSION Never done VITALS: BP 110/64 Pulse 64 Wt 122.5 kg (270 lb) SpO2 95% BMI 36.62 kg/m Last 4 Encounter Wt Readings: Date: Wt: 10/26/2021 122.5 kg (270 lb) 10/12/2021 120.7 kg (266 lb) 08/01/2021 119.3 kg (263 lb) 07/06/2021 118.8 kg (262 lb) PHYSICAL EXAMINATION: General appearance: Well appearing, alert, in no acute distress, well-hydrated, well nourished. Skin: Skin color, texture, turgor normal, no suspicious rashes or lesions Head: Normocephalic, no masses, lesions, tenderness or abnormalities Lungs: Lungs clear to auscultation. No wheezing, rhonchi, rales Heart: RRR without murmur, gallop, or rubs. No ectopy Abdomen: Normal abdominal exam, Abdomen soft, non-tender. Bowel sounds normal. No masses, organomegaly Extremities: No deformities, edema, skin discoloration, clubbing or cyanosis. Good capillary refill. Musculoskeletal: No joint swelling, deformity, or tenderness Peripheral pulses: Normal Neuro: Negative. ASSESSMENT/PLAN: 1. Cough - ICD9: 786.2, ICD10: R05.9 (primary diagnosis) - continue protonix. Consider pulmonary work up if persists in one month or worsens. . 2. Fatigue, unspecified type - ICD9: 780.79, ICD10: R53.83 - improving slowly. Consider rheum eval if persists. Call if not back to normal in one month or if worsens. 3. Gastroesophageal reflux disease, unspecified whether esophagitis present - ICD9: 530.81, ICD10: K21.9 - PANTOPRAZOLE 40 MG TABLET,DELAYED RELEASE 4. Eosinophilic fasciitis - ICD9: 728.89, ICD10: M35.4, D72.18 5. Chronic cough - ICD9: 786.2, ICD10: R05.3 - PANTOPRAZOLE 40 MG TABLET,DELAYED RELEASE Antonio Stewart Keep next follow up and prn. documented in this encounterHigh[facility]06-02-2022 Miscellaneous Notes* Telephone Encounter - Miranda Escobedo Ma - 10/13/2021 3:33 PM EDT See other mychart documented in this encounterHighland [facility] Hospital06-01-2022 History of Present illness Narrative* Antonio Stewart MD - 10/12/2021 2:49 PM EDT Patient presents with: Fatigue: x1 week Leg Cramps: bilateral x 1 week Legs weak Cough: has had for months, productive HPI: Patient presents today for office visit for acute visit. Has noted fatigue for the last week. Was working in the garage and was doing a lot of standing from a seated position. His knees were bothering him and seems to go along with this. Has seen rheum several tiems in the past and wonders if similar to that. See Dr. Rojas's notes: In , diagnosed with biopsy proven eosinophilic fasciitis (biopsy done from wrist), by back end web developer Dr. Hill (in shoulders, wrists, hands and knees). Presented with joint pain (wrists, fingers, knees) and minor hand swelling. Treated long-term with HCQ and prednisone. These were eventuallydiscontinued. - Since , in remission. Later seen by Dr. Ruiz. Labs with +MACARENA and +SSA. No evidence for active autoimmune CTD - Hx of osteopenia, treated with fosamax for 10-13 years discontinued in - In September, seen by Dr. Rodriguez. With knee pain attributed to patellofemoral syndrome. No improvement with steroid or euflexxa infections. Advised to continue meloxicam every other day. - May MRI R knee with torn meniscus, quadriceps tendon tear. Was advised by ortho to do injections - In Jun, reported continuing to do bilateral RANDALL knee injections via [facility]. Had done PTfor the knees in the past. No new fever or chills. Does not feel sick. No sore throat. No ear pain. No shortness of breath. No pain. No palpitations. No nausea, vomiting or diarrhea. No urinary issues. No rashes. Does have chronic cough. Does occasionally bring things up. Has been there since first of the year. Was having a lot of nasal congestion and saw ENT for same. No worsening heartburn. Used to be on meds for gerd while on mobic. Did have some after eating occasionally. MEDICATIONS: Current Outpatient Medications Medication Sig furosemide (LASIX) 40 mg tablet TAKE 1 TABLET BY MOUTH TWICE A DAY tiZANidine (ZANAFLEX) 4 mg tablet 1/2 to 1 tab q8h as needed for pain/ spasm tamsulosin (FLOMAX) 0.4 mg TAKE 1 CAPSULE BY MOUTH EVERY DAY rosuvastatin (CRESTOR) 20 mg tablet TAKE 1 TABLET BY MOUTH EVERYDAY AT BEDTIME NIFEdipine topical ointment 0.2% (CPD) by RECTAL route twice daily. finasteride (PROSCAR) 5 mg tablet TAKE 1 TABLET DAILY venlafaxine ER (EFFEXOR XR) 37.5 mg 24 hr capsule Take 1 capsule by mouth once daily. acetaminophen (TYLENOL) 500 mg tablet Take 2 tablets by mouth every 6 hours. melatonin 3 mg tablet Take 1 tablet by mouth at bedtime as needed for for insomnia. senna-docusate (SENNA-S) 8.6-50 mg per tablet Take 1 tablet by mouth twice daily. simethicone, chewable (MYLICON) 80 mg chewable tablet Take 1 tablet by mouth four times daily as needed. cholecalciferol, vitamin D3, (VITAMIN D3 ORAL) Take 1 capsule by mouth once daily. aspirin, enteric coated (ASPIRIN, ENTERIC COATED) 81 mg EC tablet Take 81 mg by mouth once daily. Zinc 50 mg tab Take by mouth once daily. Biotin 10,000 mcg cap Take by mouth once daily. docusate sodium (COLACE ORAL) Take by mouth as needed. polyethylene glycol 3350 (MIRALAX) 17 gram/dose powder Take 17 g by mouth as needed. vitamin b complex (BALANCE B-50) tab Take 1 tablet by mouth once daily. calcium carbonate/vitamin d3(CALCIUM 600 WITH VITAMIN D3 600 MG (1,500)-200 UNIT TAB) Take one(1) tablet twice daily. CENTRUM TABLET Take one(1) tablet daily. amLODIPine (NORVASC) 5 mg tablet Take 1 tablet by mouth once daily. metoprolol tartrate, short acting, (LOPRESSOR) 50 mg tablet Take 1 tablet by mouth every 12 hours. LORazepam (ATIVAN) 0.5 mg Take 1 tablet by mouth three times daily as needed for up to 30 days. Current Facility-Administered Medications Medication Dose Route Frequency perflutren lipid microspheres 1.3 mL in NaCl (PF) 0.9% 10 mL injection (DEFINITY) INTRAVENOUS DIRECTED PRN sodium chloride 0.9 % (flush) 10 mL (BD POSIFLUSH) 10 mL INTRAVENOUS DIRECTED PRN ALLERGIES: ALLERGIES Allergen Reactions Amitriptyline Mental Status Change Augmentin [Amoxicil* Diarrhea, GI Upset Clavulanic Acid Diarrhea Hydromorphone Other: See Comments [place] very dopey and nauseated Ibuprofen Other: See Comments ulcer from high doses PAST MEDICAL HISTORY Diagnosis Date Anal fissure Aortic stenosis moderate Basal cell carcinoma of forehead 2010 BPH with obstruction/lower urinary tract symptoms Colon polyps Degenerative skin disorder 2003 venous leg ulcers. improved w [place]. Disorder of bone and cartilage, unspecified since 1994 mild -penia at femoral neck only Esophageal reflux Gastroesophageal reflux Hydrocele 05/21/2011 Personal history of unspecified disease eosinophilc fasciitis [id number]. remission since 1995. 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 PVD (peripheral vascular disease) (HCC) Rosacea 01/25/2007 Shingles 2010 left facial - treated with antiviral and gabapentin PAST SURGICAL HISTORY Procedure Laterality Date CLSR ANAL FSTL W/RCT ADVMNT FLAP 1998 COLECTOMY PARTIAL W/ANASTOMOSIS 07/11/2017 For sigmoid volvulus COLONOSCOPY 09/2015 COLONOSCOPY FLX DX W/COLLJ SPEC WHEN PFRMD 10/09/2019 Colonoscopy EXCISION PILONIDAL CYST/SINUS SIMPLE 1972 PAST SURGICAL HISTORY OF 09/2010 Sphincterotomy PAST SURGICAL HISTORY OF 2013 fistulotomy PAST SURGICAL HISTORY OF Right Laser Ablation on veins PAST SURGICAL HISTORY OF 1998 sphincterotomy RPLCMT PROST AORTIC VALVE OPEN XCP HOMOGRF/STENT 11/30/2020 FAMILY HISTORY Problem Relation Age of Onset Cancer Mother uterine GI Mother colon resection for diverticulitis Cancer Father non-melanoma skin ca Diabetes Father around age 50 Ischemic Heart Disease Father bypass at age 70 Social History Tobacco Use Smoking status: Former Smoker Types: Pipe Quit date: 11/19/1979 Years since quittin.9 Smokeless tobacco: Never Used Tobacco comment: quit 30yrs ago Vaping Use Vaping Use: Never used Substance Use Topics Alcohol use: Yes Comment: 1 beer daily Drug use: No Reviewed current medications, allergies, past medical history, surgical history, family history andsocial history today. REVIEW OF SYSTEMS All other reviewed and negative other than HPI. VITALS: BP 134/78 Pulse 71 Resp 16 Wt 120.7 kg (266 lb) SpO2 98% BMI 36.08 kg/m Last 4 Encounter Wt Readings: Date: Wt: 08/01/2021 119.3 kg (263 lb) 07/06/2021 118.8 kg (262 lb) 04/01/2021 120.2 kg (265 lb) 12/31/2020 115.3 kg (254 lb 3.1 oz) PHYSICAL EXAMINATION: General appearance: Well appearing, alert, in no acute distress, well-hydrated, well nourished. Skin: Skin color, texture, turgor normal, no suspicious rashes or lesions Head: Normocephalic, no masses, lesions, tenderness or abnormalities Lungs: Lungs clear to auscultation. No wheezing, rhonchi, rales Heart: RRR, II/ murmur, gallop, or rubs. No ectopy Abdomen: Normal abdominal exam, Abdomen soft, non-tender. Bowel sounds normal. No masses, organomegaly Extremities: No deformities, edema, skin discoloration, clubbing or cyanosis. Good capillary refill. Musculoskeletal: No joint swelling, deformity, or tenderness Peripheral pulses: Normal Neuro: Negative., Gait normal. Reflexes normal and symmetric. Sensation grossly intact. ASSESSMENT/PLAN: 1. Chronic cough - ICD9: 786.2, ICD10: R05.3 (primary diagnosis) - check labs. Suspect gerd might be a cause. reinstate ppi and follow up closely. - XR CHEST 2V FRONTAL/LAT - NT PRO BNP - PANTOPRAZOLE 40 MG TABLET,DELAYED RELEASE 2. Fatigue, unspecified type - ICD9: 780.79, ICD10: R53.83 - as above. ? Related to arthrlagias. - CBC + DIFF - COMP METABOLIC PANEL - MAGNESIUM BLD 3. Pain in both lower extremities - ICD9: 729.5, ICD10: M79.604, M79.605 -- continue meds - PREDNISONE 20 MG TABLET 4. Severe aortic stenosis - ICD9: 424.1, ICD10: I35.0 - per cardio 5. S/P CABG x 3 - ICD9: V45.81, ICD10: Z95.1 - per cardio 6. S/P AVR (aortic valve replacement) - ICD9: V43.3, ICD10: Z95.2 7. Coronary artery disease involving [place] coronary artery of [place] heart without angina pectoris- ICD9: 414.01, ICD10: I25.10 - check labs - NT PRO BNP 8. Gastroesophageal reflux disease, unspecified whether esophagitis present - ICD9: 530.81, ICD10: K21.9 - Discussed risks and benefits of new medication with the patient. Advised them to call if any sideeffects or questions. - PANTOPRAZOLE 40 MG TABLET,DELAYED RELEASE 9. History of connective tissue disease - ICD9: V13.89, ICD10: Z87.39 - try prednisone - SED RATE WESTERGREN - C-REACTIVE PROTEIN (CRP) - CK CREATINE KINASE - PREDNISONE 20 MG TABLET 10. Hyperglycemia - ICD9: 790.29, ICD10: R73.9 - check labs. - HGB A1C Antonio Stewart RTO in two weeks and prn. Medical Decision Making [facility] Miscellaneous Notes* Telephone Encounter - Ameena Bolaños LPN - 09/01/2021 7:31 AM EDT Last seen 02/07/2021 in virtual visit with . Patient instructed to follow up in 3 months.Please call patient with over due appointment. Ameena Bolaños LPN [facility] Miscellaneous Notes* Telephone Encounter - Ameena Bolaños LPN - 09/01/2021 7:29 AM EDT Patient's request for medication is as follows: Pending Prescriptions Disp Refills FUROSEMIDE 40 MG TABLET 180 tablet 0 Sig: TAKE 1 TABLET BY MOUTH TWICE A DAY INES: Yes Last seen 02/07/2021 in virtual visit with . Patient instructed to follow up in 3 months.Message sent to clerical requesting they call patient with over due appointment. Prescription(s) as above. Please process accordingly. Ameena Bolaños LPN [facility] Miscellaneous Notes* Telephone Encounter - Ameena Bolaños LPN - 08/08/2021 1:26 PM EDT Last seen 02/07/2021. Patient missed follow up scheduled for 06/13/2021. Please call patient with over due appointment. Ameena Bolaños LPN documented in this [facility]03-28-2022 Miscellaneous Notes* Telephone Encounter - Ameena Bolaños LPN - 08/08/2021 1:08 PM EDT Patient's request for medication is as follows: Pending Prescriptions Disp Refills ROSUVASTATIN 20 MG TABLET 90 tablet 1 Sig: TAKE 1 TABLET BY MOUTH EVERYDAY AT BEDTIME INES: Yes Last seen 02/07/2021. Patient missed follow up scheduled for 06/13/2021. Message sent to clerical requesting they call patient with over due appointment. Prescription(s) as above. Please process accordingly. Ameena Bolaños LPN [facility] History of Past illness Narrative* Problem Noted Date Resolved Date CAD (coronary artery disease), [place] coronary a rtery 11/30/2020 12/14/2020 Peripheral vertigo, unspecified 02/14/2012 05/12/2019 Proctalgia fugax 06/14/2011 08/20/2017 Routine General Medical Exam ination at a Health Care Facility 12/11/2008 09/11/2014 Overview: 12/11/2008, transfer from [facility] (retired) [facility] 01/25/2007 08/20/2017 documented as of this encounter (statuses as of 08/08/2021) [facility] Narrative* Problem Noted Date Resolved Date CAD (coronary artery disease), [place] coronary a rtery 11/30/2020 12/14/2020 Peripheral vertigo, unspecified 02/14/2012 05/12/2019 Proctalgia fugax 06/14/2011 08/20/2017 Routine General Medical Exam ination at a Health Care Facility 12/11/2008 09/11/2014 Overview: 12/11/2008, transfer from [facility] Aske[facility] (donaldo) [facility] 01/25/2007 08/20/2017 documented as of this encounter (statuses as of 08/08/2021) [facility] Narrative* Problem Noted Date Resolved Date CAD (coronary artery disease), [place] coronary a rtery 11/30/2020 12/14/2020 Peripheral vertigo, unspecified 02/14/2012 05/12/2019 Proctalgia fugax 06/14/2011 08/20/2017 Routine General Medical Exam ination at a Health Care Facility 12/11/2008 09/11/2014 Overview: 12/11/2008, transfer from [facility] (retired) [facility] 01/25/2007 08/20/2017 documented as of this encounter (statuses as of 08/12/2021) [facility] Narrative* Problem Noted Date Resolved Date CAD (coronary artery disease), [place] coronary a rtery 11/30/2020 12/14/2020 Peripheral vertigo, unspecified 02/14/2012 05/12/2019 Proctalgia fugax 06/14/2011 08/20/2017 Routine General Medical Exam ination at a Health Care Facility 12/11/2008 09/11/2014 Overview: 12/11/2008, transfer from [facility] (retired) [facility] 01/25/2007 08/20/2017 documented as of this encounter (statuses as of 09/01/2021) [facility] Narrative* Problem Noted Date Resolved Date CAD (coronary artery disease), [place] coronary a rtery 11/30/2020 12/14/2020 Peripheral vertigo, unspecified 02/14/2012 05/12/2019 Proctalgia fugax 06/14/2011 08/20/2017 Routine General Medical Exam ination at a Health Care Facility 12/11/2008 09/11/2014 Overview: 12/11/2008, transfer from [facility] (retired) [facility] 01/25/2007 08/20/2017 documented as of this encounter (statuses as of 09/01/2021) [facility] Narrative* Problem Noted Date Resolved Date CAD (coronary artery disease), [place] coronary a rtery 11/30/2020 12/14/2020 Peripheral vertigo, unspecified 02/14/2012 05/12/2019 Proctalgia fugax 06/14/2011 08/20/2017 Routine General Medical Exam ination at a Health Care Facility 12/11/2008 09/11/2014 Overview: 12/11/2008, transfer from [facility] (retired) [facility] 01/25/2007 08/20/2017 documented as of this encounter (statuses as of 10/12/2021) [facility]arrative* Problem Noted Date Resolved Date CAD (coronary artery disease), [place] coronary a rtery 11/30/2020 12/14/2020 Peripheral vertigo, unspecified 02/14/2012 05/12/2019 Proctalgia fugax 06/14/2011 08/20/2017 Routine General Medical Exam ination at a Health Care Facility 12/11/2008 09/11/2014 Overview: 12/11/2008, transfer from [facility] (retired) [facility] 01/25/2007 08/20/2017 documented as of this encounter (statuses as of 10/13/2021) [facility]* Problem Noted Date Resolved Date CAD (coronary artery disease), [place] coronary a rtery 11/30/2020 12/14/2020 Peripheral vertigo, unspecified 02/14/2012 05/12/2019 Proctalgia fugax 06/14/2011 08/20/2017 Routine General Medical Exam ination at a Health Care Facility 12/11/2008 09/11/2014 Overview: 12/11/2008, transfer from [facility] (retired) [facility] 01/25/2007 08/20/2017 documented as of this encounter (statuses as of 10/26/2021) [facility] Narrative* Problem Noted Date Resolved Date CAD (coronary artery disease), [place] coronary a rtery 11/30/2020 12/14/2020 Peripheral vertigo, unspecified 02/14/2012 05/12/2019 Proctalgia fugax 06/14/2011 08/20/2017 Routine General Medical Exam ination at a Health Care Facility 12/11/2008 09/11/2014 Overview: 12/11/2008, transfer from [facility] (retired) [facility] 01/25/2007 08/20/2017 documented as of this encounter (statuses as of 12/05/2021) [facility]* Problem Noted Date Resolved Date CAD (coronary artery disease), [place] coronary a rtery 11/30/2020 12/14/2020 Peripheral vertigo, unspecified 02/14/2012 05/12/2019 Proctalgia fugax 06/14/2011 08/20/2017 Routine General Medical Exam ination at a Health Care Facility 12/11/2008 09/11/2014 Overview: 12/11/2008, transfer from [facility] (retired) [facility] 01/25/2007 08/20/2017 documented as of this encounter (statuses as of 12/06/2021) [facility]* Problem Noted Date Resolved Date CAD (coronary artery disease), [place] coronary a rtery 11/30/2020 12/14/2020 Peripheral vertigo, unspecified 02/14/2012 05/12/2019 Proctalgia fugax 06/14/2011 08/20/2017 Routine General Medical Exam ination at a Health Care Facility 12/11/2008 09/11/2014 Overview: 12/11/2008, transfer from [facility] (retired) [facility] 01/25/2007 08/20/2017 documented as of this encounter (statuses as of 12/06/2021) [facility]* Problem Noted Date Resolved Date CAD (coronary artery disease), [place] coronary a rtery 11/30/2020 12/14/2020 Peripheral vertigo, unspecified 02/14/2012 05/12/2019 Proctalgia fugax 06/14/2011 08/20/2017 Routine General Medical Exam ination at a Health Care Facility 12/11/2008 09/11/2014 Overview: 12/11/2008, transfer from [facility] (retired) [facility] 01/25/2007 08/20/2017 documented as of this encounter (statuses as of 12/20/2021) [facility]* Problem Noted Date Resolved Date CAD (coronary artery disease), [place] coronary a rtery 11/30/2020 12/14/2020 Peripheral vertigo, unspecified 02/14/2012 05/12/2019 Proctalgia fugax 06/14/2011 08/20/2017 Routine General Medical Exam ination at a Health Care Facility 12/11/2008 09/11/2014 Overview: 12/11/2008, transfer from J[facility] (retired) [facility] 01/25/2007 08/20/2017 documented as of this encounter (statuses as of 01/02/2022) [facility]* Problem Noted Date Resolved Date CAD (coronary artery disease), [place] coronary a rtery 11/30/2020 12/14/2020 Peripheral vertigo, unspecified 02/14/2012 05/12/2019 Proctalgia fugax 06/14/2011 08/20/2017 Routine General Medical Exam ination at a Health Care Facility 12/11/2008 09/11/2014 Overview: 12/11/2008, transfer from [facility] (retired) [facility] 01/25/2007 08/20/2017 documented as of this encounter (statuses as of 02/06/2022) [facility]* Problem Noted Date Resolved Date CAD (coronary artery disease), [place] coronary a rtery 11/30/2020 12/14/2020 Peripheral vertigo, unspecified 02/14/2012 05/12/2019 Proctalgia fugax 06/14/2011 08/20/2017 Routine General Medical Exam ination at a Health Care Facility 12/11/2008 09/11/2014 Overview: 12/11/2008, transfer from [facility] (retired) [facility] 01/25/2007 08/20/2017 documented as of this encounter (statuses as of 02/13/2022) [facility]* Problem Noted Date Resolved Date CAD (coronary artery disease), [place] coronary a rtery 11/30/2020 12/14/2020 Peripheral vertigo, unspecified 02/14/2012 05/12/2019 Proctalgia fugax 06/14/2011 08/20/2017 Routine General Medical Exam ination at a Health Care Facility 12/11/2008 09/11/2014 Overview: 12/11/2008, transfer from [facility] (retired) [facility] 01/25/2007 08/20/2017 documented as of this encounter (statuses as of 02/28/2022) [facility]* Problem Noted Date Resolved Date CAD (coronary artery disease), [place] coronary a rtery 11/30/2020 12/14/2020 Peripheral vertigo, unspecified 02/14/2012 05/12/2019 Proctalgia fugax 06/14/2011 08/20/2017 Routine General Medical Exam ination at a Health Care Facility 12/11/2008 09/11/2014 Overview: 12/11/2008, transfer from [facility] (retired) [facility] 01/25/2007 08/20/2017 documented as of this encounter (statuses as of 03/01/2022) [facility]* Problem Noted Date Resolved Date CAD (coronary artery disease), [place] coronary a rtery 11/30/2020 12/14/2020 Urgency of urination 10/08/2020 04/04/2022 Urinary frequency 10/08/2020 04/04/2022 Painful prostate 09/21/2020 04/04/2022 Hamstring tightness 07/28/2020 04/04/2022 Musculoskeletal thigh pain, right 07/28/2020 04/04/2022 Peripheral vertigo, unspecified 02/14/2012 05/12/2019 Proctalgia fugax 06/14/2011 08/20/2017 Routine General Medical Exam ination at a Health Care Facility 12/11/2008 09/11/2014 Overview: 12/11/2008, transfer from [facility] (retired) [facility] 01/25/2007 08/20/2017 documented as of this encounter (statuses as of 04/04/2022) [facility]* Problem Noted Date Resolved Date CAD (coronary artery disease), [place] coronary a rtery 11/30/2020 12/14/2020 Urgency of urination 10/08/2020 04/04/2022 Urinary frequency 10/08/2020 04/04/2022 Painful prostate 09/21/2020 04/04/2022 Hamstring tightness 07/28/2020 04/04/2022 Musculoskeletal thigh pain, right 07/28/2020 04/04/2022 Peripheral vertigo, unspecified 02/14/2012 05/12/2019 Proctalgia fugax 06/14/2011 08/20/2017 Routine General Medical Exam ination at a Health Care Facility 12/11/2008 09/11/2014 Overview: 12/11/2008, transfer from [facility] (retired) [facility] 01/25/2007 08/20/2017 documented as of this encounter (statuses as of 04/12/2022) [facility]* Problem Noted Date Resolved Date CAD (coronary artery disease), [place] coronary a rtery 11/30/2020 12/14/2020 Urgency of urination 10/08/2020 04/04/2022 Urinary frequency 10/08/2020 04/04/2022 Painful prostate 09/21/2020 04/04/2022 Hamstring tightness 07/28/2020 04/04/2022 Musculoskeletal thigh pain, right 07/28/2020 04/04/2022 Peripheral vertigo, unspecified 02/14/2012 05/12/2019 Proctalgia fugax 06/14/2011 08/20/2017 Routine General Medical Exam ination at a Health Care Facility 12/11/2008 09/11/2014 Overview: 12/11/2008, transfer from [facility] (retired) [facility] 01/25/2007 08/20/2017 documented as of this encounter (statuses as of 04/14/2022) [facility]* Problem Noted Date Resolved Date CAD (coronary artery disease), [place] coronary a rtery 11/30/2020 12/14/2020 Urgency of urination 10/08/2020 04/04/2022 Urinary frequency 10/08/2020 04/04/2022 Painful prostate 09/21/2020 04/04/2022 Hamstring tightness 07/28/2020 04/04/2022 Musculoskeletal thigh pain, right 07/28/2020 04/04/2022 Peripheral vertigo, unspecified 02/14/2012 05/12/2019 Proctalgia fugax 06/14/2011 08/20/2017 Routine General Medical Exam ination at a Health Care Facility 12/11/2008 09/11/2014 Overview: 12/11/2008, transfer from J[facility] Aske[facility] (retired) [facility] 01/25/2007 08/20/2017 documented as of this encounter (statuses as of 04/17/2022) [facility]* Problem Noted Date Resolved Date CAD (coronary artery disease), [place] coronary a rtery 11/30/2020 12/14/2020 Urgency of urination 10/08/2020 04/04/2022 Urinary frequency 10/08/2020 04/04/2022 Painful prostate 09/21/2020 04/04/2022 Hamstring tightness 07/28/2020 04/04/2022 Musculoskeletal thigh pain, right 07/28/2020 04/04/2022 Peripheral vertigo, unspecified 02/14/2012 05/12/2019 Proctalgia fugax 06/14/2011 08/20/2017 Routine General Medical Exam ination at a Health Care Facility 12/11/2008 09/11/2014 Overview: 12/11/2008, transfer from [facility] (retired) [facility] 01/25/2007 08/20/2017 documented as of this encounter (statuses as of 04/18/2022) [facility]* Problem Noted Date Resolved Date CAD (coronary artery disease), [place] coronary a rtery 11/30/2020 12/14/2020 Urgency of urination 10/08/2020 04/04/2022 Urinary frequency 10/08/2020 04/04/2022 Painful prostate 09/21/2020 04/04/2022 Hamstring tightness 07/28/2020 04/04/2022 Musculoskeletal thigh pain, right 07/28/2020 04/04/2022 Peripheral vertigo, unspecified 02/14/2012 05/12/2019 Proctalgia fugax 06/14/2011 08/20/2017 Routine General Medical Exam ination at a Health Care Facility 12/11/2008 09/11/2014 Overview: 12/11/2008, transfer from [facility] (retired) [facility] 01/25/2007 08/20/2017 documented as of this encounter (statuses as of 05/01/2022) [facility]* Problem Noted Date Resolved Date CAD (coronary artery disease), [place] coronary a rtery 11/30/2020 12/14/2020 Urgency of urination 10/08/2020 04/04/2022 Urinary frequency 10/08/2020 04/04/2022 Painful prostate 09/21/2020 04/04/2022 Hamstring tightness 07/28/2020 04/04/2022 Musculoskeletal thigh pain, right 07/28/2020 04/04/2022 Peripheral vertigo, unspecified 02/14/2012 05/12/2019 Proctalgia fugax 06/14/2011 08/20/2017 Routine General Medical Exam ination at a Health Care Facility 12/11/2008 09/11/2014 Overview: 12/11/2008, transfer from Jasmin Askew (retired) [facility] 01/25/2007 08/20/2017 documented as of this encounter (statuses as of 05/05/2022) [facility]* Problem Noted Date Resolved Date CAD (coronary artery disease), [place] coronary a rtery 11/30/2020 12/14/2020 Urgency of urination 10/08/2020 04/04/2022 Urinary frequency 10/08/2020 04/04/2022 Painful prostate 09/21/2020 04/04/2022 Hamstring tightness 07/28/2020 04/04/2022 Musculoskeletal thigh pain, right 07/28/2020 04/04/2022 Peripheral vertigo, unspecified 02/14/2012 05/12/2019 Proctalgia fugax 06/14/2011 08/20/2017 Routine General Medical Exam ination at a Health Care Facility 12/11/2008 09/11/2014 Overview: 12/11/2008, transfer from [facility] (caiod) [facility] 01/25/2007 08/20/2017 documented as of this encounter (statuses as of 05/05/2022) [facility]* Problem Noted Date Resolved Date CAD (coronary artery disease), [place] coronary a rtery 11/30/2020 12/14/2020 Urgency of urination 10/08/2020 04/04/2022 Urinary frequency 10/08/2020 04/04/2022 Painful prostate 09/21/2020 04/04/2022 Hamstring tightness 07/28/2020 04/04/2022 Musculoskeletal thigh pain, right 07/28/2020 04/04/2022 Peripheral vertigo, unspecified 02/14/2012 05/12/2019 Proctalgia fugax 06/14/2011 08/20/2017 Routine General Medical Exam ination at a Health Care Facility 12/11/2008 09/11/2014 Overview: 12/11/2008, transfer from [facility] (caiod) [facility] 01/25/2007 08/20/2017 documented as of this encounter (statuses as of 05/29/2022) [facility]* Problem Noted Date Resolved Date CAD (coronary artery disease), [place] coronary a rtery 11/30/2020 12/14/2020 Urgency of urination 10/08/2020 04/04/2022 Urinary frequency 10/08/2020 04/04/2022 Painful prostate 09/21/2020 04/04/2022 Hamstring tightness 07/28/2020 04/04/2022 Musculoskeletal thigh pain, right 07/28/2020 04/04/2022 Peripheral vertigo, unspecified 02/14/2012 05/12/2019 Proctalgia fugax 06/14/2011 08/20/2017 Routine General Medical Exam ination at a Health Care Facility 12/11/2008 09/11/2014 Overview: 12/11/2008, transfer from [facility]kew (donaldo) [facility] 01/25/2007 08/20/2017 documented as of this encounter (statuses as of 05/29/2022) [facility]* Problem Noted Date Resolved Date CAD (coronary artery disease), [place] coronary a rtery 11/30/2020 12/14/2020 Urgency of urination 10/08/2020 04/04/2022 Urinary frequency 10/08/2020 04/04/2022 Painful prostate 09/21/2020 04/04/2022 Hamstring tightness 07/28/2020 04/04/2022 Musculoskeletal thigh pain, right 07/28/2020 04/04/2022 Peripheral vertigo, unspecified 02/14/2012 05/12/2019 Proctalgia fugax 06/14/2011 08/20/2017 Routine General Medical Exam ination at a Health Care Facility 12/11/2008 09/11/2014 Overview: 12/11/2008, transfer from [facility] (retired) [facility] 01/25/2007 08/20/2017 documented as of this encounter (statuses as of 05/30/2022) [facility]* Problem Noted Date Resolved Date CAD (coronary artery disease), [place] coronary a rtery 11/30/2020 12/14/2020 Urgency of urination 10/08/2020 04/04/2022 Urinary frequency 10/08/2020 04/04/2022 Painful prostate 09/21/2020 04/04/2022 Hamstring tightness 07/28/2020 04/04/2022 Musculoskeletal thigh pain, right 07/28/2020 04/04/2022 Peripheral vertigo, unspecified 02/14/2012 05/12/2019 Proctalgia fugax 06/14/2011 08/20/2017 Routine General Medical Exam ination at a Health Care Facility 12/11/2008 09/11/2014 Overview: 12/11/2008, transfer from [facility]kew (caiod) [facility] 01/25/2007 08/20/2017 documented as of this encounter (statuses as of 07/12/2022) [facility]* Problem Noted Date Resolved Date CAD (coronary artery disease), [place] coronary a rtery 11/30/2020 12/14/2020 Urgency of urination 10/08/2020 04/04/2022 Urinary frequency 10/08/2020 04/04/2022 Painful prostate 09/21/2020 04/04/2022 Hamstring tightness 07/28/2020 04/04/2022 Musculoskeletal thigh pain, right 07/28/2020 04/04/2022 Peripheral vertigo, unspecified 02/14/2012 05/12/2019 Proctalgia fugax 06/14/2011 08/20/2017 Routine General Medical Exam ination at a Health Care Facility 12/11/2008 09/11/2014 Overview: 12/11/2008, transfer from [facility] (retired) [facility] 01/25/2007 08/20/2017 documented as of this encounter (statuses as of 07/20/2022) [facility]* Problem Noted Date Resolved Date CAD (coronary artery disease), [place] coronary a rtery 11/30/2020 12/14/2020 Urgency of urination 10/08/2020 04/04/2022 Urinary frequency 10/08/2020 04/04/2022 Painful prostate 09/21/2020 04/04/2022 Hamstring tightness 07/28/2020 04/04/2022 Musculoskeletal thigh pain, right 07/28/2020 04/04/2022 Peripheral vertigo, unspecified 02/14/2012 05/12/2019 Proctalgia fugax 06/14/2011 08/20/2017 Routine General Medical Exam ination at a Health Care Facility 12/11/2008 09/11/2014 Overview: 12/11/2008, transfer from J[facility] Askew (caiod) [facility] 01/25/2007 08/20/2017 documented as of this encounter (statuses as of 07/21/2022) [facility]* Problem Noted Date Resolved Date CAD (coronary artery disease), [place] coronary a rtery 11/30/2020 12/14/2020 Urgency of urination 10/08/2020 04/04/2022 Urinary frequency 10/08/2020 04/04/2022 Painful prostate 09/21/2020 04/04/2022 Hamstring tightness 07/28/2020 04/04/2022 Musculoskeletal thigh pain, right 07/28/2020 04/04/2022 Severe aortic stenosis 07/26/2016 3 Overview: S/p valve replacement Sees [facility]. Last Assessment & Plan: Peripheral vertigo, unspecified 02/14/2012 05/12/2019 Proctalgia fugax 06/14/2011 08/20/2017 Routine General Medical Exam ination at a Health Care Facility 12/11/2008 09/11/2014 Overview: 12/11/2008, transfer from [facility] (retired) [facility] 01/25/2007 08/20/2017 documented as of this encounter (statuses as of 07/25/2022) [facility]* Problem Noted Date Resolved Date CAD (coronary artery disease), [place] coronary a rtery 11/30/2020 12/14/2020 Urgency of urination 10/08/2020 04/04/2022 Urinary frequency 10/08/2020 04/04/2022 Painful prostate 09/21/2020 04/04/2022 Hamstring tightness 07/28/2020 04/04/2022 Musculoskeletal thigh pain, right 07/28/2020 04/04/2022 Severe aortic stenosis 07/26/2016 3 Overview: S/p valve replacement Sees [facility]. Last Assessment & Plan: Peripheral vertigo, unspecified 02/14/2012 05/12/2019 Proctalgia fugax 06/14/2011 08/20/2017 Routine General Medical Exam ination at a Health Care Facility 12/11/2008 09/11/2014 Overview: 12/11/2008, transfer from [facility] (donaldo) [facility] 01/25/2007 08/20/2017 documented as of this encounter (statuses as of 07/26/2022) [facility] History of Past illness Narrative* Problem Noted Date Resolved Date CAD (coronary artery disease), [place] coronary a rtery 11/30/2020 12/14/2020 Urgency of urination 10/08/2020 04/04/2022 Urinary frequency 10/08/2020 04/04/2022 Painful prostate 09/21/2020 04/04/2022 Hamstring tightness 07/28/2020 04/04/2022 Musculoskeletal thigh pain, right 07/28/2020 04/04/2022 Severe aortic stenosis 07/26/2016 3 Overview: S/p valve replacement Sees [facility]. Last Assessment & Plan: Peripheral vertigo, unspecified 02/14/2012 05/12/2019 Proctalgia fugax 06/14/2011 08/20/2017 Routine General Medical Exam ination at a [facility] 12/11/2008 09/11/2014 Overview: 12/11/2008, transfer from Jasmin Askew (retired) [facility] 01/25/2007 08/20/2017 documented as of this encounter (statuses as of 07/27/2022) [facility] History of Past illness Narrative* Problem Noted Date Resolved Date CAD (coronary artery disease), [place] coronary a rtery 11/30/2020 12/14/2020 Urgency of urination 10/08/2020 04/04/2022 Urinary frequency 10/08/2020 04/04/2022 Painful prostate 09/21/2020 04/04/2022 Hamstring tightness 07/28/2020 04/04/2022 Musculoskeletal thigh pain, right 07/28/2020 04/04/2022 Severe aortic stenosis 07/26/2016 3 Overview: S/p valve replacement Sees [facility]. Last Assessment & Plan: Peripheral vertigo, unspecified 02/14/2012 05/12/2019 Proctalgia fugax 06/14/2011 08/20/2017 Routine General Medical Exam ination at a Health Care Facility 12/11/2008 09/11/2014 Overview: 12/11/2008, transfer from [facility] (retired) [facility] 01/25/2007 08/20/2017 documented as of this encounter (statuses as of 08/09/2022) [facility] History of Past illness Narrative* Problem Noted Date Resolved Date CAD (coronary artery disease), [place] coronary a rtery 11/30/2020 12/14/2020 Urgency of urination 10/08/2020 04/04/2022 Urinary frequency 10/08/2020 04/04/2022 Painful prostate 09/21/2020 04/04/2022 Hamstring tightness 07/28/2020 04/04/2022 Musculoskeletal thigh pain, right 07/28/2020 04/04/2022 Severe aortic stenosis 07/26/2016 Overview: S/p valve replacement Sees [facility]. Last Assessment & Plan: Peripheral vertigo, unspecified 02/14/2012 05/12/2019 Proctalgia fugax 06/14/2011 08/20/2017 Routine General Medical Exam ination at a Health Care Facility 12/11/2008 09/11/2014 Overview: 12/11/2008, transfer from [facility] (retired) [facility] 01/25/2007 08/20/2017 documented as of this encounter (statuses as of 08/23/2022) [facility] History of Past illness Narrative* Problem Noted Date Resolved Date CAD (coronary artery disease), [place] coronary a rtery 11/30/2020 12/14/2020 Urgency of urination 10/08/2020 04/04/2022 Urinary frequency 10/08/2020 04/04/2022 Painful prostate 09/21/2020 04/04/2022 Hamstring tightness 07/28/2020 04/04/2022 Musculoskeletal thigh pain, right 07/28/2020 04/04/2022 Severe aortic stenosis 07/26/2016 3 Overview: S/p valve replacement Sees [facility]. Last Assessment & Plan: Peripheral vertigo, unspecified 02/14/2012 05/12/2019 Proctalgia fugax 06/14/2011 08/20/2017 Routine General Medical Exam ination at a Health Care Facility 12/11/2008 09/11/2014 Overview: 12/11/2008, transfer from [facility] (retired) [facility] 01/25/2007 08/20/2017 documented as of this encounter (statuses as of 08/31/2022) [facility] History of Past illness Narrative* Problem Noted Date Resolved Date CAD (coronary artery disease), [place] coronary a rtery 11/30/2020 12/14/2020 Urgency of urination 10/08/2020 04/04/2022 Urinary frequency 10/08/2020 04/04/2022 Painful prostate 09/21/2020 04/04/2022 Hamstring tightness 07/28/2020 04/04/2022 Musculoskeletal thigh pain, right 07/28/2020 04/04/2022 Severe aortic stenosis 07/26/2016 3 Overview: S/p valve replacement Sees [facility]. Last Assessment & Plan: Peripheral vertigo, unspecified 02/14/2012 05/12/2019 Proctalgia fugax 06/14/2011 08/20/2017 Routine General Medical Exam ination at a Health Care Facility 12/11/2008 09/11/2014 Overview: 12/11/2008, transfer from [facility] (retired) [facility] 01/25/2007 08/20/2017 documented as of this encounter (statuses as of 09/01/2022) [facility] History of Past illness Narrative* Problem Noted Date Resolved Date CAD (coronary artery disease), [place] coronary a rtery 11/30/2020 12/14/2020 Urgency of urination 10/08/2020 04/04/2022 Urinary frequency 10/08/2020 04/04/2022 Painful prostate 09/21/2020 04/04/2022 Hamstring tightness 07/28/2020 04/04/2022 Musculoskeletal thigh pain, right 07/28/2020 04/04/2022 Severe aortic stenosis 07/26/2016 3 Overview: S/p valve replacement Sees [facility]. Last Assessment & Plan: Peripheral vertigo, unspecified 02/14/2012 05/12/2019 Proctalgia fugax 06/14/2011 08/20/2017 Routine General Medical Exam ination at a Health Care Facility 12/11/2008 09/11/2014 Overview: 12/11/2008, transfer from [facility] (retired) [facility] 01/25/2007 08/20/2017 documented as of this encounter (statuses as of 09/26/2022) [facility] History of Past illness Narrative* Problem Noted Date Resolved Date CAD (coronary artery disease), [place] coronary a rtery 11/30/2020 12/14/2020 Urgency of urination 10/08/2020 04/04/2022 Urinary frequency 10/08/2020 04/04/2022 Painful prostate 09/21/2020 04/04/2022 Hamstring tightness 07/28/2020 04/04/2022 Musculoskeletal thigh pain, right 07/28/2020 04/04/2022 Severe aortic stenosis 07/26/2016 3 Overview: S/p valve replacement Sees [facility]. Last Assessment & Plan: Peripheral vertigo, unspecified 02/14/2012 05/12/2019 Proctalgia fugax 06/14/2011 08/20/2017 Routine General Medical Exam ination at a Health Care Facility 12/11/2008 09/11/2014 Overview: 12/11/2008, transfer from [facility] (retired) [facility] 01/25/2007 08/20/2017 documented as of this encounter (statuses as of 10/26/2022) [facility] History of Past illness Narrative* Problem Noted Date Resolved Date CAD (coronary artery disease), [place] coronary a rtery 11/30/2020 12/14/2020 Urgency of urination 10/08/2020 04/04/2022 Urinary frequency 10/08/2020 04/04/2022 Painful prostate 09/21/2020 04/04/2022 Hamstring tightness 07/28/2020 04/04/2022 Musculoskeletal thigh pain, right 07/28/2020 04/04/2022 Severe aortic stenosis 07/26/2016 Overview: S/p valve replacement Sees [facility]. Last Assessment & Plan: Peripheral vertigo, unspecified 02/14/2012 05/12/2019 Proctalgia fugax 06/14/2011 08/20/2017 Routine General Medical Exam ination at a [facility] 12/11/2008 09/11/2014 Overview: 12/11/2008, transfer from [facility] (retired) [facility] 01/25/2007 08/20/2017 documented as of this encounter (statuses as of 11/03/2022) [facility] History of Past illness Narrative* Problem Noted Date Diagnosed Date Resolved Date CAD (coronary artery disease ), [place] coronary artery 11/30/2020 12/14/2020 Urgency of urination 10/08/2020 022 Urinary frequency 10/08/2020 04/04/2022 Painful prostate 09/21/2020 04/04/2022 Hamstring tightness 07/28/2020 04/04/20 Musculoskeletal thigh pain, right 07/28/2020 04/04/2022 Severe aortic stenosis 07/26/201607/25 Overview: S/p valve replacement Sees [facility]. Last Assessment & Plan: Peripheral vertigo, unspecified 02/14/2012 05/12/2019 Proctalgia fugax 06/14/2011 08/20/2017 Routine General Medical Exam ination at a Health Care Facility 12/11/2008 09/11/2014 Overview: 12/11/2008, transfer from [facility] (retired) [facility] 01/25/2007 08/20/2017 documented as of this encounter (statuses as of 12/07/2022) [facility] History of Past illness Narrative* Problem Noted Date Diagnosed Date Resolved Date CAD (coronary artery disease ), [place] coronary artery 11/30/2020 12/14/2020 Urgency of urination 10/08/2020 022 Urinary frequency 10/08/2020 04/04/2022 Painful prostate 09/21/2020 04/04/2022 Hamstring tightness 07/28/2020 04/04/20 22 Musculoskeletal thigh pain, right 07/28/2020 04/04/2022 Severe aortic stenosis 07/26/201607/25 Overview: S/p valve replacement Sees [facility]. Last Assessment & Plan: Peripheral vertigo, unspecified 02/14/2012 05/12/2019 Proctalgia fugax 06/14/2011 08/20/2017 Routine General Medical Exam ination at a Health Care Facility 12/11/2008 09/11/2014 Overview: 12/11/2008, transfer from [facility] (retired) [facility] 01/25/2007 08/20/2017 documented as of this encounter (statuses as of 12/07/2022) [facility] History of Past illness Narrative* Problem Noted Date Diagnosed Date Resolved Date CAD (coronary artery disease ), [place] coronary artery 11/30/2020 12/14/2020 Urgency of urination 10/08/2020 022 Urinary frequency 10/08/2020 04/04/2022 Painful prostate 09/21/2020 04/04/2022 Hamstring tightness 07/28/2020 04/04/20 22 Musculoskeletal thigh pain, right 07/28/2020 04/04/2022 Severe aortic stenosis 07/26/201607/25 Overview: S/p valve replacement Sees [facility]. Last Assessment & Plan: Peripheral vertigo, unspecified 02/14/2012 05/12/2019 Proctalgia fugax 06/14/2011 08/20/2017 Routine General Medical Exam ination at a Health Care Facility 12/11/2008 09/11/2014 Overview: 12/11/2008, transfer from [facility] (retired) [facility] 01/25/2007 08/20/2017 documented as of this encounter (statuses as of 12/08/2022) [facility] History of Past illness Narrative* Problem Noted Date Diagnosed Date Resolved Date CAD (coronary artery disease ), [place] coronary artery 11/30/2020 12/14/2020 Urgency of urination 10/08/2020 022 Urinary frequency 10/08/2020 04/04/2022 Painful prostate 09/21/2020 04/04/2022 Hamstring tightness 07/28/2020 04/04/20 22 Musculoskeletal thigh pain, right 07/28/2020 04/04/2022 Severe aortic stenosis 07/26/201607/25 Overview: S/p valve replacement Sees [facility]. Last Assessment & Plan: Peripheral vertigo, unspecified 02/14/2012 05/12/2019 Proctalgia fugax 06/14/2011 08/20/2017 Routine General Medical Exam ination at a Health Care Facility 12/11/2008 09/11/2014 Overview: 12/11/2008, transfer from [facility] (retired) [facility] 01/25/2007 08/20/2017 documented as of this encounter (statuses as of 01/05/2023) [facility] History of Past illness Narrative* Problem Noted Date Diagnosed Date Resolved Date CAD (coronary artery disease ), [place] coronary artery 11/30/2020 12/14/2020 Urgency of urination 10/08/2020 022 Urinary frequency 10/08/2020 04/04/2022 Painful prostate 09/21/2020 04/04/2022 Hamstring tightness 07/28/2020 04/04/20 22 Musculoskeletal thigh pain, right 07/28/2020 04/04/2022 Severe aortic stenosis 07/26/201607/25 Overview: S/p valve replacement Sees [facility]. Last Assessment & Plan: Peripheral vertigo, unspecified 02/14/2012 05/12/2019 Proctalgia fugax 06/14/2011 08/20/2017 Routine General Medical Exam ination at a Health Care Facility 12/11/2008 09/11/2014 Overview: 12/11/2008, transfer from [facility] (retired) [facility] 01/25/2007 08/20/2017 documented as of this encounter (statuses as of 01/09/2023) [facility] History of Past illness Narrative* Problem Noted Date Diagnosed Date Resolved Date CAD (coronary artery disease ), [place] coronary artery 11/30/2020 12/14/2020 Urgency of urination 10/08/2020 022 Urinary frequency 10/08/2020 04/04/2022 Painful prostate 09/21/2020 04/04/2022 Hamstring tightness 07/28/2020 04/04/20 22 Musculoskeletal thigh pain, right 07/28/2020 04/04/2022 Severe aortic stenosis 07/26/201607/25 Overview: S/p valve replacement Sees [facility]. Last Assessment & Plan: Peripheral vertigo, unspecified 02/14/2012 05/12/2019 Proctalgia fugax 06/14/2011 08/20/2017 Routine General Medical Exam ination at a Health Care Facility 12/11/2008 09/11/2014 Overview: 12/11/2008, transfer from [facility] (retired) [facility] 01/25/2007 08/20/2017 documented as of this encounter (statuses as of 01/23/2023) [facility] History of Past illness Narrative* Problem Noted Date Diagnosed Date Resolved Date CAD (coronary artery disease ), [place] coronary artery 11/30/2020 12/14/2020 Urgency of urination 10/08/2020 022 Urinary frequency 10/08/2020 04/04/2022 Painful prostate 09/21/2020 04/04/2022 Hamstring tightness 07/28/2020 04/04/20 22 Musculoskeletal thigh pain, right 07/28/2020 04/04/2022 Severe aortic stenosis 07/26/201607/25 Overview: S/p valve replacement Sees [facility]. Last Assessment & Plan: Peripheral vertigo, unspecified 02/14/2012 05/12/2019 Proctalgia fugax 06/14/2011 08/20/2017 Routine General Medical Exam ination at a [facility] 12/11/2008 09/11/2014 Overview: 12/11/2008, transfer from [facility] (retired) [facility] 01/25/2007 08/20/2017 documented as of this encounter (statuses as of 01/24/2023) [facility] History of Past illness Narrative* Problem Noted Date Diagnosed Date Resolved Date CAD (coronary artery disease ), [place] coronary artery 11/30/2020 12/14/2020 Urgency of urination 10/08/2020 022 Urinary frequency 10/08/2020 04/04/2022 Painful prostate 09/21/2020 04/04/2022 Hamstring tightness 07/28/2020 04/04/20 22 Musculoskeletal thigh pain, right 07/28/2020 04/04/2022 Severe aortic stenosis 07/26/201607/25 Overview: S/p valve replacement Sees [facility]. Last Assessment & Plan: Peripheral vertigo, unspecified 02/14/2012 05/12/2019 Proctalgia fugax 06/14/2011 08/20/2017 Routine General Medical Exam ination at a Health Care Facility 12/11/2008 09/11/2014 Overview: 12/11/2008, transfer from [facility] (retired) [facility] 01/25/2007 08/20/2017 documented as of this encounter (statuses as of 01/24/2023) [facility] History of Past illness Narrative* Problem Noted Date Diagnosed Date Resolved Date CAD (coronary artery disease ), [place] coronary artery 11/30/2020 12/14/2020 Urgency of urination 10/08/2020 022 Urinary frequency 10/08/2020 04/04/2022 Painful prostate 09/21/2020 04/04/2022 Hamstring tightness 07/28/2020 04/04/20 Musculoskeletal thigh pain, right 07/28/2020 04/04/2022 Severe aortic stenosis 07/26/201607/25 Overview: S/p valve replacement Sees [facility]. Last Assessment & Plan: Peripheral vertigo, unspecified 02/14/2012 05/12/2019 Proctalgia fugax 06/14/2011 08/20/2017 Routine General Medical Exam ination at a Health Care Facility 12/11/2008 09/11/2014 Overview: 12/11/2008, transfer from [facility] (retired) [facility] 01/25/2007 08/20/2017 documented as of this encounter (statuses as of 01/25/2023) [facility] of Past illness Narrative* Problem Noted Date Diagnosed Date Resolved Date CAD (coronary artery disease ), [place] coronary artery 11/30/2020 12/14/2020 Urgency of urination 10/08/2020 022 Urinary frequency 10/08/2020 04/04/2022 Painful prostate 09/21/2020 04/04/2022 Hamstring tightness 07/28/2020 11/22/20 22 Musculoskeletal thigh pain, right 07/28/2020 04/04/2022 Severe aortic stenosis 07/26/201607/25 Overview: S/p valve replacement Sees [facility]. Last Assessment & Plan: Peripheral vertigo, unspecified 02/14/2012 05/12/2019 Proctalgia fugax 06/14/2011 08/20/2017 Routine General Medical Exam ination at a Health Care Facility 12/11/2008 09/11/2014 Overview: 12/11/2008, transfer from [facility] (retired) [facility] 01/25/2007 08/20/2017 documented as of this encounter (statuses as of 01/30/2023) [facility] of Past illness Narrative* Problem Noted Date Diagnosed Date Resolved Date CAD (coronary artery disease ), [place] coronary artery 11/30/2020 12/14/2020 Urgency of urination 10/08/2020 022 Urinary frequency 10/08/2020 04/04/2022 Painful prostate 09/21/2020 04/04/2022 Hamstring tightness 07/28/2020 04/04/20 22 Musculoskeletal thigh pain, right 07/28/2020 04/04/2022 Severe aortic stenosis 07/26/201607/25 Overview: S/p valve replacement Sees [facility]. Last Assessment & Plan: Peripheral vertigo, unspecified 02/14/2012 05/12/2019 Proctalgia fugax 06/14/2011 08/20/2017 Routine General Medical Exam ination at a Health Care Facility 12/11/2008 09/11/2014 Overview: 12/11/2008, transfer from [facility] (retired) [facility] 01/25/2007 08/20/2017 documented as of this encounter (statuses as of 01/31/2023) [facility] of Past illness Narrative* Problem Noted Date Diagnosed Date Resolved Date CAD (coronary artery disease ), [place] coronary artery 11/30/2020 12/14/2020 Urgency of urination 10/08/2020 022 Urinary frequency 10/08/2020 04/04/2022 Painful prostate 09/21/2020 04/04/2022 Hamstring tightness 07/28/2020 04/04/20 22 Musculoskeletal thigh pain, right 07/28/2020 04/04/2022 Severe aortic stenosis 07/26/201607/25 Overview: S/p valve replacement Sees [facility]. Last Assessment & Plan: Peripheral vertigo, unspecified 02/14/2012 05/12/2019 Proctalgia fugax 06/14/2011 08/20/2017 Routine General Medical Exam ination at a Health Care Facility 12/11/2008 09/11/2014 Overview: 12/11/2008, transfer from [facility] Askew (retired) [facility] 01/25/2007 08/20/2017 documented as of this encounter (statuses as of 02/17/2023) [facility] of Past illness Narrative* Problem Noted Date Diagnosed Date Resolved Date CAD (coronary artery disease ), [place] coronary artery 11/30/2020 12/14/2020 Urgency of urination 10/08/2020 022 Urinary frequency 10/08/2020 04/04/2022 Painful prostate 09/21/2020 04/04/2022 Hamstring tightness 07/28/2020 04/04/20 22 Musculoskeletal thigh pain, right 07/28/2020 04/04/2022 Severe aortic stenosis 07/26/201607/25 Overview: S/p valve replacement Sees [facility]. Last Assessment & Plan: Peripheral vertigo, unspecified 02/14/2012 05/12/2019 Proctalgia fugax 06/14/2011 08/20/2017 Routine General Medical Exam ination at a Health Care Facility 12/11/2008 09/11/2014 Overview: 12/11/2008, transfer from [facility] (retired) [facility] 01/25/2007 08/20/2017 documented as of this encounter (statuses as of 03/09/2023) [facility] of Past illness Narrative* Problem Noted Date Diagnosed Date Resolved Date CAD (coronary artery disease ), [place] coronary artery 11/30/2020 12/14/2020 Urgency of urination 10/08/2020 022 Urinary frequency 10/08/2020 04/04/2022 Painful prostate 09/21/2020 04/04/2022 Hamstring tightness 07/28/2020 04/04/20 Musculoskeletal thigh pain, right 07/28/2020 04/04/2022 Severe aortic stenosis 07/26/201607/25 Overview: S/p valve replacement Sees [facility]. Last Assessment & Plan: Peripheral vertigo, unspecified 02/14/2012 05/12/2019 Proctalgia fugax 06/14/2011 08/20/2017 Routine General Medical Exam ination at a Health Care Facility 12/11/2008 09/11/2014 Overview: 12/11/2008, transfer from [facility] (retired) [facility] 01/25/2007 08/20/2017 documented as of this encounter (statuses as of 03/18/2023) [facility] of Past illness Narrative* Problem Noted Date Diagnosed Date Resolved Date CAD (coronary artery disease ), [place] coronary artery 11/30/2020 12/14/2020 Urgency of urination 10/08/2020 022 Urinary frequency 10/08/2020 04/04/2022 Painful prostate 09/21/2020 04/04/2022 Hamstring tightness 07/28/2020 04/04/20 22 Musculoskeletal thigh pain, right 07/28/2020 04/04/2022 Severe aortic stenosis 07/26/201607/25 Overview: S/p valve replacement Sees [facility]. Last Assessment & Plan: Peripheral vertigo, unspecified 02/14/2012 05/12/2019 Proctalgia fugax 06/14/2011 08/20/2017 Routine General Medical Exam ination at a Health Care Facility 12/11/2008 09/11/2014 Overview: 12/11/2008, transfer from [facility] (retired) [facility] 01/25/2007 08/20/2017 documented as of this encounter (statuses as of 03/21/2023) [facility] Diagnosis Chronic cough- Primary Cough Fatigue, unspecified type Pain in both lower extremities Severe aortic stenosis Aortic valve disorders S/P CABG x 3 Postsurgical aortocoronary bypass status S/P AVR (aortic valve replacement) Heart valve replaced by other means Coronary artery disease involving [place] coronary artery of [place] heart without angina pectoris Gastroesophageal reflux disease, unspecified whether esophagitis present History of connective tissue disease Personal history of other specified diseases Hyperglycemia Other abnormal glucose [facility] Cough- Primary Fatigue, unspecified type Gastroesophageal reflux disease, unspecified whether esophagitis present Eosinophilic fasciitis Other disorder of muscle, ligament, and fascia Chronic cough [facility] Chronic diastolic congestive heart failure (HCC)- Primary Chronic diastolic heart failure [facility] Diagnosis Chronic pain of both knees- Primary [facility] Diagnosis Predominant disturbance of emotions [facility] Anal fissure [facility] Diagnosis Chronic diastolic congestive heart failure (HCC)- Primary Chronic diastolic heart failure Coronary artery disease involving [place] coronary artery of [place] heart without angina pectoris Other hyperlipidemia Paroxysmal atrial fibrillation (HCC) Atrial fibrillation Severe aortic stenosis Aortic valve disorders Gastroesophageal reflux disease, unspecified whether esophagitis present BPH with obstruction/lower urinary tract symptoms Hypertrophy of prostate with urinary obstruction and other lower urinary tract symptoms (LUTS) Malignant neoplasm of skin Unspecified malignant neoplasm of skin, site unspecified Cerebral aneurysm, nonruptured Eosinophilic fasciitis Other disorder of muscle, ligament, and fascia Chronic cough Cough [facility] Diagnosis Thrombocytopenia (HCC)- Primary Thrombocytopenia, unspecified [facility] URI, acute- Primary Acute upper respiratory infections of unspecified site Influenza-like illness Influenza with other respiratory manifestations [facility] Diagnosis Chronic diastolic congestive heart failure (HCC)- Primary Chronic diastolic heart failure [facility] Chronic cough Cough [facility] Diagnosis Chronic cough Cough [facility] Diagnosis Cough variant asthma- Primary Class 2 obesity due to excess calories with body mass index (BMI) of 38.0 to 38.9 in adult, unspecified whether serious comorbidity present [facility] Diagnosis Cerebral aneurysm, nonruptured- Primary Coronary artery disease involving [place] coronary artery of [place] heart without angina pectoris Chronic diastolic congestive heart failure (HCC) Chronic diastolic heart failure Paroxysmal atrial fibrillation (HCC) Atrial fibrillation Severe aortic stenosis Aortic valve disorders S/P CABG x 3 Postsurgical aortocoronary bypass status Other hyperlipidemia First degree AV block First degree atrioventricular block S/P AVR (aortic valve replacement) Heart valve replaced by other means Overactive bladder 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 Hypertrophy of prostate with urinary obstruction and other lower urinary tract symptoms (LUTS) PVD (peripheral vascular disease) ([facility]) Peripheral vascular disease, unspecified Fatigue, unspecified type Stiffness in joint Stiffness of joint, not elsewhere classified, unspecified site [facility] Diagnosis Cough variant asthma- Primary Obesity (BMI 30-39.9) Obesity, unspecified [facility] Diagnosis Eosinophilic fasciitis- Primary Other disorder of muscle, ligament, and fascia Chronic pain of both knees Pain in joint, multiple sites [facility] Diagnosis Benign prostatic hyperplasia (BPH) with urinary urgency- Primary [facility] Diagnosis BPH with obstruction/lower urinary tract symptoms- Primary Hypertrophy of prostate with urinary obstruction and other lower urinary tract symptoms (LUTS) Urinary frequency Urgency of urination ED (erectile dysfunction) of organic origin Impotence of organic origin [facility] Diagnosis Pneumonia of right upper lobe due to infectious organism- Primary Hypokalemia Hypopotassemia [facility] Hyperglycemia- Primary Other abnormal glucose [facility] Diagnosis Hospital discharge follow-up- Primary Other follow-up examination Community acquired pneumonia of right upper lobe of lung Hypoxia Hypoxemia Cough variant asthma Coronary artery disease involving [place] coronary artery of [place] heart without angina pectoris Chronic diastolic congestive heart failure (HCC) Chronic diastolic heart failure Paroxysmal atrial fibrillation (HCC) Atrial fibrillation S/P CABG x 3 Postsurgical aortocoronary bypass status Other hyperlipidemia S/P AVR (aortic valve replacement) Heart valve replaced by other means PVD (peripheral vascular disease) ([facility]) Peripheral vascular disease, unspecified Abnormal CXR Other nonspecific abnormal finding of lung field Coronary artery disease involving [place] coronary artery of [place] heart with angina pectoris ([facility]) [facility] Diagnosis Bacterial pneumonia Bacterial pneumonia, unspecified [facility] Diagnosis Pneumonia of right upper lobe due to infectious organism- Primary Cough variant asthma Obesity (BMI 30-39.9) Obesity, unspecified [facility] Diagnosis IBS (irritable bowel syndrome) Irritable bowel syndrome [facility] Diagnosis Primary localized osteoarthritis of knees, bilateral- Primary Other specified injury of left quadriceps muscle, fascia and tendon, sequela [facility] Diagnosis Disorder of bone and cartilage Disorder of bone and cartilage, unspecified Other specified disorders of bone density and structure, multiple sites [facility] Diagnosis Primary localized osteoarthritis of knees, bilateral- Primary Other specified injury of left quadriceps muscle, fascia and tendon, sequela [facility] Diagnosis Cerebral aneurysm, nonruptured- Primary Malignant neoplasm of skin Unspecified malignant neoplasm of skin, site unspecified Cough variant asthma Paroxysmal atrial fibrillation (HCC) Atrial fibrillation Coronary artery disease involving [place] coronary artery of [place] heart without angina pectoris Chronic diastolic congestive heart failure (HCC) Chronic diastolic heart failure Other hyperlipidemia Eosinophilic fasciitis Other disorder of muscle, ligament, and fascia Predominant disturbance of emotions documented in this [facility] Summary Purpose Family History No Family History Records FoundNo Family History Records FoundNo Family History Records FoundNo Family History Records Found Advance Directives No Advanced Directives Records FoundDocuments on File Type Date Recorded Patient Intelligence Consultant Expl anation Advance Directive(s) Advance Directive(s) 01/01/2021 12:16 PM Advance Directive(s) 11/30/2020 6:10 AM Advance Directive(s) 10/28/2020 7:36 AM Advance Directive(s) 10/13/2020 8:43 AM Advance Directive(s) 09/09/2020 7:00 AM Advance Directive(s) 09/09/2020 6:57 AM Advance Directive(s) 10/09/2019 9:05 AM Advance Directive(s) 10/02/2019 11:54 AM Advance Directive(s) 07/21/2019 2:41 PM Advance Directive(s) 01/28/2018 12:59 PM Documents on File Type Date Recorded Patient Intelligence Consultant Expl anation Advance Directive(s) Advance Directive(s) 01/01/2021 12:16 PM Advance Directive(s) 11/30/2020 6:10 AM Advance Directive(s) 10/28/2020 7:36 AM Advance Directive(s) 10/13/2020 8:43 AM Advance Directive(s) 09/09/2020 7:00 AM Advance Directive(s) 09/09/2020 6:57 AM Advance Directive(s) 10/09/2019 9:05 AM Advance Directive(s) 10/02/2019 11:54 AM Advance Directive(s) 07/21/2019 2:41 PM Advance Directive(s) 01/28/2018 12:59 PM Documents on File Type Date Recorded Patient Intelligence Consultant Expl anation Advance Directive(s) 09/09/2020 6:57 AM Documents on File Type Date Recorded Patient Intelligence Consultant Expl anation Advance Directive(s) 09/09/2020 6:57 AM Reason for Referral Specialty Diagnoses / Procedures Referred By Te angel Referred To Contact [facility] Diagnoses Chronic pain of both knees Procedures CONSULT TO PHYSICAL THERAPY PHYSICAL THERAPY EVALUATION HIGH COMPLEX [address] [place] [address] [place] [address] [facility] [place] [phone] Referral ID Status Reason Start Date Expiration Date Visits Requested Visits Authorized [id number] Pending Review Auto-Generat ed Referral 12/06/2021 12/06/2022 1 1 Specialty Diagnoses / Procedures Referred By Contac t Referred To Contact [facility] Diagnoses Chronic cough Procedures CONSULT TO PULM/CRITICAL CARE OFFICE/OUTPATIENT NEW HIGH MDM 60-74 MINUTES Antonio Stewart MD [address] [place] [address] Referral ID Status Reason Start Date Expiration Date Visits Requested Visits Authorized [id number] Pending Review PCP Requested Referral 2 04/04/2023 1 1 Health Concerns Infection Onset Date Last Indicated Resolved Time COVID-19 Confirmed 04/17/2022 04/17/2022 Infection Onset Date Last Indicated Resolved Time COVID-19 Confirmed 04/17/2022 04/17/2022 2 8:51 PM EST Problem Noted Date High Risk Chronic Disease Home Monitorin g Problem 09/27/2022 Problem Noted Date Diagnosed Date High Risk Chronic Disease Home Monitoring Proble 09/27/2022 Problem Noted Date Diagnosed Date High Risk Chronic Disease Home Monitoring Proble 09/27/2022 Problem Noted Date Diagnosed Date High Risk Chronic Disease Home Monitoring Proble 09/27/2022 Problem Noted Date Diagnosed Date High Risk Chronic Disease Home Monitoring Proble 09/27/2022 Problem Noted Date Diagnosed Date High Risk Chronic Disease Home Monitoring Proble 09/27/2022 Problem Noted Date Diagnosed Date High Risk Chronic Disease Home Monitoring Proble 09/27/2022 Problem Noted Date Diagnosed Date High Risk Chronic Disease Home Monitoring Proble 09/27/2022 Problem Noted Date Diagnosed Date High Risk Chronic Disease Home Monitoring Proble 09/27/2022 Problem Noted Date Diagnosed Date High Risk Chronic Disease Home Monitoring Proble 09/27/2022 Problem Noted Date Diagnosed Date High Risk Chronic Disease Home Monitoring Proble 09/27/2022 Additional Source Comments (unrecognized sect ion and content) No Status Records FoundNo Status Records FoundNo Status Records FoundNo Status Records Found INFORMATION SOURCE (unrecogn ized section and content) DATE CREATED AUTHOR AUTHOR'S ORGANIZ ATION 12/12/2017 [employer] DATE CREATED AUTHOR AUTHOR'S ORGANIZ ATION 12/07/2022 [facility] DATE CREATED AUTHOR AUTHOR'S ORGANIZ ATION 05/18/2023 [facility] Source Comments (unrecognize d section and content) In the event this informatio n is protected by the Federal Confidentiality of Alcohol and Drug Abuse Patient Records regulations: The Federal rules restrict any use of the information to criminally investigate or prosecute any alcohol or drug abuse patient.[facility] event this information is protected by the Federal Confidentiality of Alcohol and Drug Abuse Patient Records regulations: The Federal rules restrict any use of the information to criminally investigate or prosecute any alcohol or drug abuse patient.[facility] the event this information is protected by the Federal Confidentiality of Alcohol and Drug Abuse Patient Records regulations: The Federal rules restrict any use of the information to criminally investigate or prosecute any alcohol or drug abuse patient.[facility] the event this information is protected by the Federal Confidentiality of Alcohol and Drug Abuse Patient Records regulations: The Federal rules restrict any use of the information to criminally investigate or prosecute any alcohol or drug abuse patient.[facility] the event this information is protected by the Federal Confidentiality of Alcohol and Drug Abuse Patient Records regulations: The Federal rules restrict any use of the information to criminally investigate or prosecute any alcohol or drug abuse patient.[facility] the event this information is protected by the Federal Confidentiality of Alcohol and Drug Abuse Patient Records regulations: The Federal rules restrict any use of the information to criminally investigate or prosecute any alcohol or drug abuse patient.[facility] the event this information is protected by the Federal Confidentiality of Alcohol and Drug Abuse Patient Records regulations: The Federal rules restrict any use of the information to criminally investigate or prosecute any alcohol or drug abuse patient.[facility] the event this information is protected by the Federal Confidentiality of Alcohol and Drug Abuse Patient Records regulations: The Federal rules restrict any use of the information to criminally investigate or prosecute any alcohol or drug abuse patient.[facility] the event this information is protected by the Federal Confidentiality of Alcohol and Drug Abuse Patient Records regulations: The Federal rules restrict any use of the information to criminally investigate or prosecute any alcohol or drug abuse patient.[facility] the event this information is protected by the Federal Confidentiality of Alcohol and Drug Abuse Patient Records regulations: The Federal rules restrict any use of the information to criminally investigate or prosecute any alcohol or drug abuse patient.[facility]In the event this information is protected by the Federal Confidentiality of Alcohol and Drug Abuse Patient Records regulations: The Federal rules restrict any use of the information to criminally investigate or prosecute any alcohol or drug abuse patient.[facility] the event this information is protected by the Federal Confidentiality of Alcohol and Drug Abuse Patient Records regulations: The Federal rules restrict any use of the information to criminally investigate or prosecute any alcohol or drug abuse patient.[facility]In the event this information is protected by the Federal Confidentiality of Alcohol and Drug Abuse Patient Records regulations: The Federal rules restrict any use of the information to criminally investigate or prosecute any alcohol or drug abuse patient.[facility]In the event this information is protected by the Federal Confidentiality of Alcohol and Drug Abuse Patient Records regulations: The Federal rules restrict any use of the information to criminally investigate or prosecute any alcohol or drug abuse patient.[facility]In the event this information is protected by the Federal Confidentiality of Alcohol and Drug Abuse Patient Records regulations: The Federal rules restrict any use of the information to criminally investigate or prosecute any alcohol or drug abuse patient.[facility]In the event this information is protected by the Federal Confidentiality of Alcohol and Drug Abuse Patient Records regulations: The Federal rules restrict any use of the information to criminally investigate or prosecute any alcohol or drug abuse patient.[facility]In the event this information is protected by the Federal Confidentiality of Alcohol and Drug Abuse Patient Records regulations: The Federal rules restrict any use of the information to criminally investigate or prosecute any alcohol or drug abuse patient.[facility]In the event this information is protected by the Federal Confidentiality of Alcohol and Drug Abuse Patient Records regulations: The Federal rules restrict any use of the information to criminally investigate or prosecute any alcohol or drug abuse patient.[facility]In the event this information is protected by the Federal Confidentiality of Alcohol and Drug Abuse Patient Records regulations: The Federal rules restrict any use of the information to criminally investigate or prosecute any alcohol or drug abuse patient.[facility]In the event this information is protected by the Federal Confidentiality of Alcohol and Drug Abuse Patient Records regulations: The Federal rules restrict any use of the information to criminally investigate or prosecute any alcohol or drug abuse patient.[facility]In the event this information is protected by the Federal Confidentiality of Alcohol and Drug Abuse Patient Records regulations: The Federal rules restrict any use of the information to criminally investigate or prosecute any alcohol or drug abuse patient.[facility]In the event this information is protected by the Federal Confidentiality of Alcohol and Drug Abuse Patient Records regulations: The Federal rules restrict any use of the information to criminally investigate or prosecute any alcohol or drug abuse patient.[facility]In the event this information is protected by the Federal Confidentiality of Alcohol and Drug Abuse Patient Records regulations: The Federal rules restrict any use of the information to criminally investigate or prosecute any alcohol or drug abuse patient.[facility]In the event this information is protected by the Federal Confidentiality of Alcohol and Drug Abuse Patient Records regulations: The Federal rules restrict any use of the information to criminally investigate or prosecute any alcohol or drug abuse patient.[facility]In the event this information is protected by the Federal Confidentiality of Alcohol and Drug Abuse Patient Records regulations: The Federal rules restrict any use of the information to criminally investigate or prosecute any alcohol or drug abuse patient.[facility]In the event this information is protected by the Federal Confidentiality of Alcohol and Drug Abuse Patient Records regulations: The Federal rules restrict any use of the information to criminally investigate or prosecute any alcohol or drug abuse patient.[facility]In the event this information is protected by the Federal Confidentiality of Alcohol and Drug Abuse Patient Records regulations: The Federal rules restrict any use of the information to criminally investigate or prosecute any alcohol or drug abuse patient.[facility] HospitalIn the event this information is protected by the Federal Confidentiality of Alcohol and Drug Abuse Patient Records regulations: The Federal rules restrict any use of the information to criminally investigate or prosecute any alcohol or drug abuse patient.[facility]In the event this information is protected by the Federal Confidentiality of Alcohol and Drug Abuse Patient Records regulations: The Federal rules restrict any use of the information to criminally investigate or prosecute any alcohol or drug abuse patient.[facility]In the event this information is protected by the Federal Confidentiality of Alcohol and Drug Abuse Patient Records regulations: The Federal rules restrict any use of the information to criminally investigate or prosecute any alcohol or drug abuse patient.[facility]In the event this information is protected by the Federal Confidentiality of Alcohol and Drug Abuse Patient Records regulations: The Federal rules restrict any use of the information to criminally investigate or prosecute any alcohol or drug abuse patient.[facility] HospitalIn the event this information is protected by the Federal Confidentiality of Alcohol and Drug Abuse Patient Records regulations: The Federal rules restrict any use of the information to criminally investigate or prosecute any alcohol or drug abuse patient.[facility]In the event this information is protected by the Federal Confidentiality of Alcohol and Drug Abuse Patient Records regulations: The Federal rules restrict any use of the information to criminally investigate or prosecute any alcohol or drug abuse patient.[facility]In the event this information is protected by the Federal Confidentiality of Alcohol and Drug Abuse Patient Records regulations: The Federal rules restrict any use of the information to criminally investigate or prosecute any alcohol or drug abuse patient.[facility]In the event this information is protected by the Federal Confidentiality of Alcohol and Drug Abuse Patient Records regulations: The Federal rules restrict any use of the information to criminally investigate or prosecute any alcohol or drug abuse patient.[facility]In the event this information is protected by the Federal Confidentiality of Alcohol and Drug Abuse Patient Records regulations: The Federal rules restrict any use of the information to criminally investigate or prosecute any alcohol or drug abuse patient.[facility]In the event this information is protected by the Federal Confidentiality of Alcohol and Drug Abuse Patient Records regulations: The Federal rules restrict any use of the information to criminally investigate or prosecute any alcohol or drug abuse patient.[facility]In the event this information is protected by the Federal Confidentiality of Alcohol and Drug Abuse Patient Records regulations: The Federal rules restrict any use of the information to criminally investigate or prosecute any alcohol or drug abuse patient.[facility]In the event this information is protected by the Federal Confidentiality of Alcohol and Drug Abuse Patient Records regulations: The Federal rules restrict any use of the information to criminally investigate or prosecute any alcohol or drug abuse patient.[facility]In the event this information is protected by the Federal Confidentiality of Alcohol and Drug Abuse Patient Records regulations: The Federal rules restrict any use of the information to criminally investigate or prosecute any alcohol or drug abuse patient.[facility]In the event this information is protected by the Federal Confidentiality of Alcohol and Drug Abuse Patient Records regulations: The Federal rules restrict any use of the information to criminally investigate or prosecute any alcohol or drug abuse patient.[facility] HospitalIn the event this information is protected by the Federal Confidentiality of Alcohol and Drug Abuse Patient Records regulations: The Federal rules restrict any use of the information to criminally investigate or prosecute any alcohol or drug abuse patient.[facility]In the event this information is protected by the Federal Confidentiality of Alcohol and Drug Abuse Patient Records regulations: The Federal rules restrict any use of the information to criminally investigate or prosecute any alcohol or drug abuse patient.[facility]In the event this information is protected by the Federal Confidentiality of Alcohol and Drug Abuse Patient Records regulations: The Federal rules restrict any use of the information to criminally investigate or prosecute any alcohol or drug abuse patient.[facility]In the event this information is protected by the Federal Confidentiality of Alcohol and Drug Abuse Patient Records regulations: The Federal rules restrict any use of the information to criminally investigate or prosecute any alcohol or drug abuse patient.[facility]In the event this information is protected by the Federal Confidentiality of Alcohol and Drug Abuse Patient Records regulations: The Federal rules restrict any use of the information to criminally investigate or prosecute any alcohol or drug abuse patient.[facility]In the event this information is protected by the Federal Confidentiality of Alcohol and Drug Abuse Patient Records regulations: The Federal rules restrict any use of the information to criminally investigate or prosecute any alcohol or drug abuse patient.[facility]In the event this information is protected by the Federal Confidentiality of Alcohol and Drug Abuse Patient Records regulations: The Federal rules restrict any use of the information to criminally investigate or prosecute any alcohol or drug abuse patient.[facility]In the event this information is protected by the Federal Confidentiality of Alcohol and Drug Abuse Patient Records regulations: The Federal rules restrict any use of the information to criminally investigate or prosecute any alcohol or drug abuse patient.[facility] HospitalIn the event this information is protected by the Federal Confidentiality of Alcohol and Drug Abuse Patient Records regulations: The Federal rules restrict any use of the information to criminally investigate or prosecute any alcohol or drug abuse patient.[facility]In the event this information is protected by the Federal Confidentiality of Alcohol and Drug Abuse Patient Records regulations: The Federal rules restrict any use of the information to criminally investigate or prosecute any alcohol or drug abuse patient.[facility]In the event this information is protected by the Federal Confidentiality of Alcohol and Drug Abuse Patient Records regulations: The Federal rules restrict any use of the information to criminally investigate or prosecute any alcohol or drug abuse patient.[facility] HospitalIn the event this information is protected by the Federal Confidentiality of Alcohol and Drug Abuse Patient Records regulations: The Federal rules restrict any use of the information to criminally investigate or prosecute any alcohol or drug abuse patient.[facility] HospitalIn the event this information is protected by the Federal Confidentiality of Alcohol and Drug Abuse Patient Records regulations: The Federal rules restrict any use of the information to criminally investigate or prosecute any alcohol or drug abuse patient.[facility] the event this information is protected by the Federal Confidentiality of Alcohol and Drug Abuse Patient Records regulations: The Federal rules restrict any use of the information to criminally investigate or prosecute any alcohol or drug abuse patient.[facility] HospitalIn the event this information is protected by the Federal Confidentiality of Alcohol and Drug Abuse Patient Records regulations: The Federal rules restrict any use of the information to criminally investigate or prosecute any alcohol or drug abuse patient.[facility]In the event this information is protected by the Federal Confidentiality of Alcohol and Drug Abuse Patient Records regulations: The Federal rules restrict any use of the information to criminally investigate or prosecute any alcohol or drug abuse patient.[facility] the event this information is protected by the Federal Confidentiality of Alcohol and Drug Abuse Patient Records regulations: The Federal rules restrict any use of the information to criminally investigate or prosecute any alcohol or drug abuse patient.[facility] Reason for Visit (unrecogniz ed section and content) Specialty Diagnoses / Procedures Referred By Te angel Referred To Contact Physical Therapy / PHYSICAL THERAPY Diagnoses m17.0 arthritis of knee s76.192s left quad muscle Procedures NEW RS PT ORTH MSK Self Stephen, Nicholas, PT [address] [place] [address] Referral ID Status Reason Start Date Expiration Date V isits Requested Visits Authorized [id number] Authorized 05/14/2022 05/13/2023 99 99 Reason Comments Appointment Reason Comments Refill Request Reason Comments Fatigue x1 week Leg Cramps bilateral x 1 week L egs weak Cough has had for months, productive Reason Comments Follow Up 2 weeks-cough maybe a little better still there-legs not really improved Reason Onset Date Comments community monitoring outreach 12/05/2021 In Sight Reason Onset Date Comments Community monitoring outreach 01/02/2022 CD M [facility] triggered call Reason Onset Date Comments Refill Request 02/13/2022 Reason Comments Medication Problem Reason Comments 6 Month Exam Reason Comments Results Reason Comments Patient Question Reason Comments Cough Stuffy nose, congest ion x1 day Reason Comments Patient Update Reason Comments Blood Pressure Check Reason Comments Spirometry Specialty Diagnoses / Procedures Referred By Te angel Referred To Contact [facility] Diagnoses Chronic cough Procedures SPIROMETRY WITH DILATOR IF OBSTRUCTED BRNCDILAT RSPSE SPMTRY PRE&POST-BRNCDILAT ADMN Ioana Louis MD [address] [place] [address] [facility] [place] [address] [place] [phone] Referral ID Status Reason Start Date Expiration Date V isits Requested Visits Authorized [id number] Closed Auto-Generate d Referral 05/26/2022 06/25/2023 1 1 Specialty Diagnoses / Procedures Referred By Te angel Referred To Contact [facility] Diagnoses Chronic cough Procedures NITRIC OXIDE, EXHALED NITRIC OXIDE GAS DETERMINATION Ioana Louis MD [address] [place] [address] Res[facility] [place] [phone] Referral ID Status Reason Start Date Expiration Date V isits Requested Visits Authorized [id number] Closed Auto-Generate d Referral 05/26/2022 06/25/2023 1 1 Reason Comments New Patient chronic cough Specialty Diagnoses / Procedures Referred By Te angel Referred To Contact Pulmonary and Critical Care Medicine Diagnoses Chronic cough Procedures CONSULT TO PULM/CRITICAL CARE OFFICE/OUTPATIENT NEW HIGH MDM 60-74 MINUTES Antonio Stewart MD [address] [place] [address] Referral ID Status Reason Start Date Expiration Date Visits Requested Visits Authorized [id number] Pending Review PCP Requested Referral 2 04/04/2023 1 1 Reason Comments Leg Pain Stiffness and aching for 2 weeks Reason Comments Established Patient 2 month chronic coug h Reason Comments Established Patient Reason Onset Date Comments Refill Request 08/31/2022 Reason Comments Calling for Appointment leg discomfort x 2 weeks Reason Comments PSA Reason Onset Date Comments Refill Request 12/08/2022 Reason Comments Hospital F/U Reason Comments Pneumonia Follow up. Not feeli ng better. Reason Comments Follow Up Reason Comments Established Patient 6 month follow up co ugh variant asthma Reason Comments PT Eval Reason Comments 6 Month Exam Care Teams (unrecognized sec tion and content) Wind Tunnel Mechanic Relationship Specialty Start Date End Date Antonio Stewart MD [address] [place], [place] [id number] PCP - General Family Practice 09/11/14 Philip Nicole MD [address] [place] [address] [place] [address] Cardiology 11/19/20 Wind Tunnel Mechanic Relationship Specialty Start Date End Date Antonio Stewart MD [address] [place], [place] [id number] PCP - General Family Practice 09/11/14 Philip Nicole MD [address] [place] [address] Cardiology 11/19/20 Wind Tunnel Mechanic Relationship Specialty Start Date End Date Antonio Stewart MD [address] [place], [place] [phone] PCP - General Family Practice 09/11/14 Philip Nicole MD [address] [place] [address] [place] [address] Cardiology 11/19/20 Wind Tunnel Mechanic Relationship Specialty Start Date End Date Antonio Stewart MD [address] [place] [address] PCP - General Family Practice 09/11/14 Philip Nicole MD [address] [place] [address] [place] [address] Cardiology 11/19/20 Wind Tunnel Mechanic Relationship Specialty Start Date End Date Antonio Stewart MD [address] [place] [address] PCP - General Family Practice 09/11/14 Philip Nicole MD [address] [place] [address] [place] [address] Cardiology 11/19/20 Wind Tunnel Mechanic Relationship Specialty Start Date End Date Antonio Stewart MD [address] [place] [address] PCP - General Family Practice 09/11/14 Philip Nicole MD [address] [place] [address] [place] [address] Cardiology 11/19/20 Yudy Michael, ELAINE [address] [place] [address] Associate Dean Of Students 12/05/21 Wind Tunnel Mechanic Relationship Specialty Start Date End Date Antnoio Stewart MD [address] [place] [address] PCP - General Family Practice 09/11/14 Philip Nicole MD [address] [place] [address] [place] [address] Cardiology 11/19/20 Yudy Michael, ELAINE [address] [place] [address] Associate Dean Of Students 12/05/21 Wind Tunnel Mechanic Relationship Specialty Start Date End Date Antonio Stewart MD [address] [place] [address] PCP - General Family Practice 09/11/14 Philip Nicole MD [address] [address] Cardiology 11/19/20 Yudy Michael, ELAINE [address] [place] [address] Associate Dean Of Students 12/05/21 Wind Tunnel Mechanic Relationship Specialty Start Date End Date Antonio Stewart MD [address] [place] [address] PCP - General Family Practice 09/11/14 Philip Nicole MD [address] [address] Cardiology 11/19/20 Yudy Michael RN [address] [place] [address] Associate Dean Of Students 12/05/21 Wind Tunnel Mechanic Relationship Specialty Start Date End Date Antonio Stewart MD [address] [place] [address] PCP - General Family Practice 09/11/14 Philip Nicole MD [address] [address] Cardiology 11/19/20 Yudy Michael RN [address] [place] [address] Associate Dean Of Students 12/05/21 Wind Tunnel Mechanic Relationship Specialty Start Date End Date Antonio Stewart MD [address] [place] [address] PCP - General Family Medicine 09/11/14 Philip Nicole MD [address] [place] [address] (Fax) Cardiology 11/19/20 Yudy Michael, ELAINE [address] [place] [address] Associate Dean Of Students 12/05/21 Wind Tunnel Mechanic Relationship Specialty Start Date End Date Antonio Stewart MD [address] [place] [address] PCP - General Family Medicine 09/11/14 Philip Nicole MD [address] [place] [address] [place] [phone] (Fax) Cardiology 11/19/20 Yudy Michael RN [address] [place] [address] Associate Dean Of Students 12/05/21 Wind Tunnel Mechanic Relationship Specialty Start Date End Date Antonio Stewart MD [address] [place] [address] PCP - General Family Medicine 09/11/14 Philip Nicole MD [address] [place] [address] [place] [phone] (Fax) Cardiology 11/19/20 Yudy Michael, ELAINE [address] [place] [address] Associate Dean Of Students 12/05/21 Wind Tunnel Mechanic Relationship Specialty Start Date End Date Antonio Stewart MD [address] [place] [address] PCP - General Family Medicine 09/11/14 Philip Nicole MD [address] [place] [address] (Fax) Cardiology 11/19/20 Lyric Cruz, information systems audit managerAssociate Dean Of Students 12/05/21 Wind Tunnel Mechanic Relationship Specialty Start Date End Date Antonio Stewart MD [address] [place] [address] PCP - General Family Medicine 09/11/14 Philip Nicole MD [address] [place] [address] Cardiology 11/19/20 Lyric Cruz, information systems audit managerAssociate Dean Of Students 12/05/21 Wind Tunnel Mechanic Relationship Specialty Start Date End Date Antonio Stewart MD [address] [place] [address] PCP - General Family Medicine 09/11/14 Philip Nicole MD [address] [place] [address] Cardiology 11/19/20 Lyric Cruz, information systems audit managerAssociate Dean Of Students 12/05/21 Wind Tunnel Mechanic Relationship Specialty Start Date End Date Antonio Stewart MD [address] [place] [address] PCP - General Family Medicine 09/11/14 Philip Nicole MD [address] [place] [address] Cardiology 11/19/20 Lyric Cruz, information systems audit managerAssociate Dean Of Students 12/05/21 Wind Tunnel Mechanic Relationship Specialty Start Date End Date Antonio Stewart MD [address] [place] [address] PCP - General Family Medicine 09/11/14 Philip Nicole MD [address] [place] [address] Cardiology 11/19/20 Lyric Cruz, information systems audit managerAssociate Dean Of Students 12/05/21 Wind Tunnel Mechanic Relationship Specialty Start Date End Date Antonio Stewart MD [address] [place] [address] PCP - General Family Medicine 09/11/14 Philip Nicole MD [address] [place] [address] Cardiology 11/19/20 Lyric Cruz, information systems audit managerAssociate Dean Of Students 12/05/21 Wind Tunnel Mechanic Relationship Specialty Start Date End Date Antonio Stewart MD [address] [place] [address] PCP - General Family Medicine 09/11/14 Philip Nicole MD [address] [place] [address] Cardiology 11/19/20 Lyric Cruz, information systems audit managerAssociate Dean Of Students 12/05/21 Wind Tunnel Mechanic Relationship Specialty Start Date End Date Antonio Stewart MD [address] [place] [address] PCP - General Family Medicine 09/11/14 Philip Nicole MD [address] [place] [address] Cardiology 11/19/20 Lyric Cruz, information systems audit managerAssociate Dean Of Students 12/05/21 Wind Tunnel Mechanic Relationship Specialty Start Date End Date Antonio Stewart MD [address] [place] [address] PCP - General Family Medicine 09/11/14 Philip Nicole MD [address] [place] [address] Cardiology 11/19/20 Lyric Cruz, information systems audit managerAssociate Dean Of Students 12/05/21 Wind Tunnel Mechanic Relationship Specialty Start Date End Date Antonio Stewart MD [address] [place] [address] PCP - General Family Medicine 09/11/14 Philip Nicole MD [address] [place] [address] Cardiology 11/19/20 Lyric Cruz, information systems audit managerAssociate Dean Of Students 12/05/21 Wind Tunnel Mechanic Relationship Specialty Start Date End Date Antonio Stewart MD [address] [place] [address] PCP - General Family Medicine 09/11/14 Philip Nicole MD [address] [place] [address] Cardiology 11/19/20 Lyric Cruz, information systems audit managerAssociate Dean Of Students 12/05/21 Wind Tunnel Mechanic Relationship Specialty Start Date End Date Antonio Stewart MD [address] [place] [address] PCP - General Family Medicine 09/11/14 Philip Nicole MD [address] [place] [address] Cardiology 11/19/20 Lyric Cruz, information systems audit managerAssociate Dean Of Students 12/05/21 Wind Tunnel Mechanic Relationship Specialty Start Date End Date Antonio Stewart MD [address] [place] [address] PCP - General Family Medicine 09/11/14 Philip Nicole MD [address] [place] [address] [place] [address] Cardiology 11/19/20 Lyric Cruz, information systems audit managerAssociate Dean Of Students 12/05/21 Wind Tunnel Mechanic Relationship Specialty Start Date End Date Antonio Stewart MD [address] [place] [address] PCP - General Family Medicine 09/11/14 Philip Nicole MD [address] [place] [address] Cardiology 11/19/20 Lyric Cruz RN Associate Dean Of Students 12/05/21 Wind Tunnel Mechanic Relationship Specialty Start Date End Date Antonio Stewart MD [address] [place] [address] PCP - General Family Medicine 09/11/14 Philip Nicole MD [address] [place] [address] [place] [address] Cardiology 11/19/20 Lyric Cruz RN Associate Dean Of Students 12/05/21 Wind Tunnel Mechanic Relationship Specialty Start Date End Date Antonio Stewart MD [address] [place] [address] PCP - General Family Medicine 09/11/14 Philip Nicole MD [address] [address] Cardiology 11/19/20 Lyric Cruz RN Associate Dean Of Students 12/05/21 Wind Tunnel Mechanic Relationship Specialty Start Date End Date Antonio Stewart MD [address] [place] [address] PCP - General Family Medicine 09/11/14 Philip Nicole MD [address] [address] Cardiology 11/19/20 Lyric Cruz RN Associate Dean Of Students 12/05/21 Wind Tunnel Mechanic Relationship Specialty Start Date End Date Antonio Stewart MD [address] [place] [address] PCP - General Family Medicine 09/11/14 Philip Nicole MD [address] [address] Cardiology 11/19/20 Lyric Cruz RN Associate Dean Of Students 12/05/21 Wind Tunnel Mechanic Relationship Specialty Start Date End Date Antonio Stewart MD [address] [place] [address] PCP - General Family Medicine 09/11/14 Philip Nicole MD [address] [place] [address] [place] [address] (Fax) Cardiology 11/19/20 Lyric Cruz RN Associate Dean Of Students 12/05/21 Wind Tunnel Mechanic Relationship Specialty Start Date End Date Antonio Stewart MD [address] [place] [address] PCP - General Family Medicine 09/11/14 Philip Nicole MD [address] [place] [address] [place] [address] (Fax) Cardiology 11/19/20 Lyric Cruz RN Associate Dean Of Students 12/05/21 Wind Tunnel Mechanic Relationship Specialty Start Date End Date Antonio Stewart MD [address] [place] [address] PCP - General Family Medicine 09/11/14 Philip Nicole MD [address] [place] [address] [place] [phone] (Fax) Cardiology 11/19/20 Lyric Cruz RN Associate Dean Of Students 12/05/21 Wind Tunnel Mechanic Relationship Specialty Start Date End Date Antonio Stewart MD [address] [place] [address] PCP - General Family Medicine 09/11/14 Philip Nicole MD [address] [place] [address] (Fax) Cardiology 11/19/20 Lyric Cruz RN Associate Dean Of Students 12/05/21 Wind Tunnel Mechanic Relationship Specialty Start Date End Date Antonio Stewart MD [address] [place] [address] PCP - General Family Medicine 09/11/14 Philip Nicoel MD [address] [place] [address] [place] [address] Cardiology 11/19/20 Lyric Cruz RN Associate Dean Of Students 12/05/21 Wind Tunnel Mechanic Relationship Specialty Start Date End Date Antonio Stewart MD [address] [place] [address] PCP - General Family Medicine 09/11/14 Philip Nicole MD [address] [id number] Cardiology 11/19/20 Lyric Cruz RN Associate Dean Of Students 12/05/21 FOR RECORDS PERTAINING TO PATIENTS WHO ARE OR HAVE BEEN ENROLLED IN A CHEMICAL DEPENDENCY/SUBSTANCEABUSE PROGRAM, SOME INFORMATION MAY BE OMITTED. This clinical summary was aggregated from multiple sources. Caution should be exercised in using it in the provision of clinical care. This summary normalizes information from multiple sources, and as a consequence, information in this document may materially change the coding, format and clinical context of patient data. In addition, data may be omitted in some cases. CLINICAL DECISIONS SHOULD BE BASED ON THE PRIMARY CLINICAL RECORDS. [facility] [employer] [facility]. provides no warranty or guarantee of the accuracy or completeness of information in this document.
[2023-06-12 10:32] LABS: AST(SGOT) 20 U/L (15-37); Alanine Aminotransfer ALT/SGPT 41 U/L (16-61); Albumin, Serum 3.6 g/dL (3.2-5.0); Alkaline Phosphatase 59 U/L (45-117); Bilirubin, Direct 0.14 mg/dL (0.00-0.30); Cholesterol 141 mg/dL (200); Globulin 3.5 g/dL (2.2-4.2); High Density Lipoprotein 50 mg/dL; Protein, Total 7.1 g/dL (6.4-8.2); Triglycerides 131 mg/dL; Very Low Density Lipoprotein 26 mg/dL (5-40)
== END | disposition home or self-care (01) ==
LOC: LAB 09:26
PROVIDERS: PCP Family Medicine; Referring Provider Nurse Practitioner Family; Visit Provider Nurse Practitioner Family
DX: I25.10 Atherosclerotic heart disease of native coronary artery without angina pectoris (principal); E78.5 Hyperlipidemia, unspecified
CPT/HCPCS: 36415; 80061; 80076

== ENCOUNTER → 2023-09-14 | Outpatient (CLI) | payer MEDICARE, OTHER, SELFPAY ==
--- NOTE | 2023-09-14 12:38 | MRI_ITS ---
HISTORY: pain. TECHNIQUE: Multiplanar and multisequence MR images of the lumbar spine were obtained without intravenous contrast. 182 images. COMPARISON: XR 08/16/2023. CT 07/20/2017. FINDINGS: VERTEBRAE: Vertebral body heights maintained. Small hemangiomas or focal fat in the L1 and L2 vertebral bodies. Degenerative bone marrow endplate changes at multiple levels. ALIGNMENT: Chronic mild retrolisthesis of L2-3, L3-4, and L5-S1. Mild dextroscoliosis. CONUS: Normal morphology and position of the conus medullaris at L1-2. INTERVERTEBRAL DISCS: T12-L1: No significant signal abnormality, posterior disc protrusion, central canal stenosis, or foraminal narrowing based on the sagittal images. L1-2: Mild posterior disc bulge osteophyte complex with facet arthropathy sulci in minimal narrowing of the thecal sac and mild bilateral foraminal narrowing. L2-3: Moderate posterior disc bulge osteophyte complex resulting in minimal narrowing of the thecal sac, mild right, and moderate left foraminal narrowing. L3-4: Mild posterior disc bulge osteophyte complex with facet arthropathy resulting in mild central canal stenosis and mild-mild bilateral foraminal narrowing. L4-5: Mild posterior disc bulge osteophyte complex with facet arthropathy resulting in minimal narrowing of the thecal sac, mild left, and moderate right foraminal narrowing. L5-S1: Mild posterior disc bulge osteophyte complex with a 7 mm superimposed right paracentral disc extrusion with inferior migration at the lateral recess in combination with facet arthropathy resulting in right S1 nerve root impingement, moderate right foraminal narrowing with right L5 nerve root abutment and mild left foraminal narrowing. No significant central canal stenosis. SOFT TISSUES: Mild posterior subcutaneous edema. MRI/Spine Lumbar (Routine) IMPRESSION: Multilevel degenerative disc disease with mild spinal canal stenosis as above. Right nerve root impingement/abutment at L5-S1 with moderate right foraminal narrowing. Electronically Signed: Jaylin Maxwell MD at 14:54 EDT ,
== END | disposition home or self-care (01) ==
LOC: MRI 12:31
PROVIDERS: PCP Family Medicine; Referring Provider Orthopaedic Surgery; Visit Provider Orthopaedic Surgery
DX: M47.816 Spondylosis without myelopathy or radiculopathy, lumbar region (principal)
CPT/HCPCS: 72148

== ENCOUNTER → 2023-12-28 | Outpatient (CLI) | payer MEDICARE, OTHER, SELFPAY ==
[2023-12-28 16:35] LABS: AST(SGOT) 30 U/L (15-37); Alanine Aminotransfer ALT/SGPT 35 U/L (16-61); Albumin, Serum 3.5 g/dL (3.2-5.0); Alkaline Phosphatase 54 U/L (45-117); Anion Gap 4 (5-15); BUN 22 mg/dL (7-18); Bilirubin, Direct 0.12 mg/dL (0.00-0.30); Calcium,Total 8.4 mg/dL (8.5-10.1); Chloride 105 mmol/L (98-107); Cholesterol 97 mg/dL (200); Creatinine, Serum 1.22 mg/dL (0.70-1.30); EST Glomerular Filtration Rate 61 mL/min (>60); Est Glom Filt Rate - Afr Amer 74 mL/min (>60); Globulin 3.3 g/dL (2.2-4.2); Glucose 98 mg/dL (74-106); High Density Lipoprotein 37 mg/dL; Protein, Total 6.8 g/dL (6.4-8.2); Sodium Level 139 mmol/L (136-145); Triglycerides 202 mg/dL; Very Low Density Lipoprotein 40 mg/dL (5-40)
== END | disposition home or self-care (01) ==
LOC: LAB 14:24
PROVIDERS: PCP Family Medicine; Referring Provider Nurse Practitioner Family; Visit Provider Nurse Practitioner Family
DX: E78.00 Pure hypercholesterolemia, unspecified (principal)
CPT/HCPCS: 36415; 80048; 80061; 80076

== ENCOUNTER 2024-01-11 21:45 | Inpatient (IN) | payer MEDICARE, OTHER, SELFPAY ==
[2024-01-11 21:45] VITALS: BP 155/69; PULSE 82; RESP 16; TEMP 36.2; O2SAT 95; BMI 39.3
[2024-01-11 21:48] VITALS: BP 155/69; PULSE 82; RESP 16; TEMP 36.2; O2SAT 95
--- NOTE | 2024-01-11 22:43 | CT_ITS ---
EXAM: CT ABDOMEN AND PELVIS WITH INTRAVENOUS CONTRAST CLINICAL INDICATION: severe left sided abd pain; recent lower scope TECHNIQUE: Helically acquired images were obtained of the abdomen and pelvis with intravenous contrast. This CT exam was performed using one or more of the following dose reduction techniques: automated exposure control, adjustment of the mA and/or kV according to patient size, and/or use of iterative reconstruction technique. CONTRAST: IV 100mL Isovue-370 RADIATION DOSE: CTDIvol = 19.44 mGy, DLP = 2220.97 mGy-cm COMPARISON: CT abdomen and pelvis 07/20/2017 FINDINGS: LIMITATIONS: Examination limited by patient body habitus with portions of the left abdomen excluded from [id number]. LOWER THORAX: Unremarkable. Lung bases are clear. No cardiomegaly. No significant pericardial effusion. ABDOMEN: LIVER: Hepatomegaly. GALLBLADDER AND BILE DUCTS: Unremarkable. No calcified gallstones. No gallbladder distention or wall edema. No intra- or extrahepatic biliary ductal dilation. PANCREAS: Unremarkable. No focal cystic or solid mass. SPLEEN: Unremarkable. Normal size without focal cystic or solid mass. ADRENALS: Unremarkable. No nodules. KIDNEYS AND URETERS: Unremarkable. Normal renal size and position. No hydronephrosis. STOMACH AND BOWEL: Distended and dilated loops of small bowel in the left abdomen measuring up to 4 cm. Possible transition point in the low midline, series 2 images 100-108. No abnormalities identified involving the colon. No focal inflammatory change. PELVIS: APPENDIX: No evidence of acute appendicitis. BLADDER: Unremarkable. REPRODUCTIVE: Unremarkable as visualized. No mass. ABDOMEN and PELVIS: INTRAPERITONEAL SPACE: Unremarkable. No ascites or other fluid collection. No free air. BONES/JOINTS: Unremarkable. No suspicious lytic or blastic abnormality. SOFT TISSUES: There is a right inguinal hernia which contains a portion of the distal right ureter, with mild focal hydroureter. Fat-containing left inguinal hernia as well. VASCULATURE: Unremarkable. Abdominal aorta is non-dilated. LYMPH NODES: Unremarkable. No enlarged lymph nodes. OTHER FINDINGS: Eventration of the diaphragm. CT/Abdomen/Pelvis W IV Cont ONLY IMPRESSION: 1. Distended and dilated loops of small bowel in the left abdomen measuring up to 4 cm. Possible transition point in the low midline, series 2 images 100-108. Findings may indicate a bowel obstruction secondary to stricture or adhesions. 2. There is a right inguinal hernia which contains a portion of the distal right ureter, with mild focal hydroureter. Electronically Signed: Oneil Brown MD at 1:21 EDT ,
--- NOTE | 2024-01-11 22:46 | ED.VIS.GI ---
HPI HPI - GI History of Present Illness Chief Complaint: Abd Pain Informant: patient and spouse/S.O. Narrative Narrative: Patient has been having periumbilical abdominal pain all day today. 2 days ago he had a colonoscopy at the same discomfort that felt like bloating and cramping that evening, he passed gas and it went away. He has been passing gas off and on all day today but it has not been changing. He took simethicone, did not change anything. He denies having any bowel movements yet. No nausea or vomiting. Poor appetite due to this today, presents after 10 PM for this since it has been there all day. He saw his doctor for this yesterday and had an exam in the office but he did not have any pain then. The colonoscopy was done for screening purposes and was told it was normal, he gets them every 5 years, he had surgical partial colectomy for a sigmoid volvulus remotely no other abdominal surgeries. [facility] Medical History Gastroesophageal reflux disease Osteoarthritis of right knee Eosinophilic fasciitis Right knee pain Paroxysmal atrial fibrillation Chronic heart failure with preserved ejection fraction (HFpEF) Atherosclerosis of coronary artery without angina pectoris Nonrheumatic aortic (valve) stenosis Osteoarthritis of right knee Nontraumatic rupture of tendon of right quadriceps muscle Lateral meniscus tear Right knee pain Quadriceps tendon rupture Wears glasses Wears partial dentures Cancer Alcohol use Hx of connective tissue disease Bladder disease Prostate disease Anemia Back pain Migraine headache Seizures History of hiatal hernia History of GI bleed History of ulceration History of IBS Gastric reflux Former smoker Shortness of breath on exertion Leg cramps Hypertension History of stress test History of echocardiogram Cardiology follow-up encounter History of atrial fibrillation Venous stasis dermatitis Depression Anxiety Benign prostate hyperplasia Debility Inability to ambulate due to multiple joints Bilateral lower leg cellulitis Bilateral edema of lower extremity Hemarthrosis of knee, left Eosinophilic fasciitis Degeneration of intervertebral disc Bilateral inguinal hernia without obstruction or gangrene Vertigo BPH (benign prostatic hyperplasia) Rosacea Cerebral aneurysm Essential hypertension Hyperlipidemia Anal fissure Obesity (BMI 30-39.9) Lipodermatosclerosis Hyperpigmentation Venous stasis ulcer Venous hypertension, chronic, with ulcer and inflammation Chronic venous insufficiency Non-healing wound of lower extremity Open wound Peripheral vascular disease of lower extremity with ulceration Home Medications ?Medication ?Instructions ?Recorded ?Last Taken ?Type finasteride 5 mg tablet 5 mg PO QHS URINARY RETENTION 07/08/17 01/02/23 History lorazepam 0.5 mg tablet 0.5 mg PO TID PRN ANXIETY 07/08/17 Unknown History biotin 10,000 mcg capsule (Etienne 10,000 mcg PO DAILY SUPPLEMENT 11/27/18 01/03/23 History Biotin) zinc 50 mg tablet 50 mg PO DAILY SUPPLEMENT 11/27/18 01/03/23 History metoprolol tartrate 50 mg tablet 50 mg PO BID BLOOD PRESSURE 12/31/20 01/03/23 History acetaminophen 500 mg tablet 500 mg PO Q6H PRN Pain 01/08/21 Unknown History amlodipine 5 mg tablet 5 mg PO DAILY BLOOD PRESSURE 01/08/21 01/03/23 History cholecalciferol (vitamin D3) 125 125 mcg PO DAILY SUPPLEMENT 01/08/21 01/03/23 History mcg (5,000 unit) tablet (Vitamin D3) multivit,Ca,min-iron 8 mg-folic 1 tab PO DAILY SUPPLEMENT 01/08/21 01/03/23 History acid 200 mcg-lycopene 600 mcg tablet (Centrum Men) venlafaxine 37.5 mg 37.5 mg PO DAILY ANTIDEPRESSANT 01/08/21 01/03/23 History capsule,extended release 24 hr aspirin 81 mg tablet,delayed 81 mg PO DAILY HEART HEALTH 06/06/21 01/03/23 History release (Adult Aspirin Regimen) lactobacillus combination no.9 4 8,000 mmu cells PO DAILY GUT HEALTH 06/06/21 01/03/23 History billion cell capsule (Adult 50 Plus Probiotic) vitamin K2 100 mcg capsule 100 mcg PO DAILY SUPPLEMENT 06/06/21 01/03/23 History rosuvastatin 20 mg tablet 20 mg PO DAILY CHOLESTEROL #90 tabs 01/25/22 01/03/23 Rx calcium carbonate 600 mg-vitamin 1 cap PO DAILY SUPPLEMENT 06/08/22 01/03/23 History D3 5 mcg (200 unit) capsule dicyclomine 20 mg tablet 20 mg PO BID PRN IRRITABLE BOWELS 06/08/22 Unknown History ipratropium bromide 42 mcg (0.06 2 spray intranasal BID allergies 06/14/23 Unknown History %) nasal spray fluticasone 100 mcg-salmeterol 50 1 inh inhalation BID asthma 09/28/23 Unknown History mcg/dose blistr powdr for inhalation (Wixela Inhub) ibuprofen 200 mg tablet 200 mg PO Q6H PRN pain 12/13/23 Unknown History melatonin 3 mg capsule 3 mg PO HS sleep 12/13/23 Unknown History naproxen sodium 220 mg capsule 220 mg PO BID PRN pain 12/13/23 Unknown History polyethylene glycol 3350 17 17 g PO DAILY PRN CONSTIPATION 12/13/23 Unknown History gram/dose oral powder psyllium husk 3.4 gram/5.4 gram 1 tsp PO DAILY CONSTIPATON 12/13/23 Unknown History oral powder (Metamucil) vitamin B complex 1 tab PO DAILY supplement 12/13/23 Unknown History furosemide 40 mg tablet 40 mg PO DAILY FLUID 01/12/24 Unknown History Allergy/AdvReac Type Severity Reaction Status Date / Time amoxicillin (From Augmentin) AdvReac Abd Verified 01/11/24 23:10 cramps/diarrhea clavulanic acid (From AdvReac Abd Verified 01/11/24 23:10 Augmentin) cramps/diarrhea hydromorphone (From Dilaudid) AdvReac Vomiting Verified 01/11/24 23:10 ibuprofen (From Motrin) AdvReac GI bleed Verified 01/11/24 23:10 Family History Mother Cancer uterine Father Cancer skin Diabetes CAD (coronary artery disease) CABG Surgical History History of aortic valve replacement with bioprosthetic valve (11/30/20) H/O coronary artery bypass surgery (11/30/20) History of cardiac catheterization History of basal cell carcinoma (BCC) excision History of rectal sphincterotomy History of colectomy History of excision of pilonidal cyst Social History household members: spouse Smoking Status: Former smoker how long ago did patient quit smokin years ago alcohol intake: current alcohol intake frequency: 0-2 drinks per day Alcohol type: beer substance use type: does not use caffeine: Yes Type: carbonated beverages Number of servings: 1 ROS ROS ED Constitutional Constitutional ED: Denies chills or fever(s) Eyes Eyes: Denies change in vision or diplopia ENT ENT ED: Denies rhinorrhea or sore throat Cardiovascular Cardiovascular: Denies chest pain or palpitations Respiratory/Chest Respiratory/Chest: Denies cough or dyspnea Gastrointestinal Gastrointestinal: Reports abdominal pain and bloating; Denies diarrhea, nausea or vomiting Genitourinary Genitourinary ED: Denies dysuria or hematuria Musculoskeletal Musculoskeletal: Denies back pain or neck pain Integumentary Denies abscess or rash Neurologic Neurologic: Denies headache(s), paresthesias or weakness Psychiatric Psychiatric: Denies anxiety or suicidal thoughts EXAM Physical Exam Const Vital Signs: 01/11/24 21:45 01/11/24 21:48 01/11/24 23:00 Temperature 97.2 F L 97.2 F L 98 F Temperature Source Temporal Temporal Temporal Pulse Rate 82 82 88 Respiratory Rate 16 16 18 Blood Pressure 155/69 H 155/69 H 135/59 H Blood Pressure Mean 97 97 84 Pulse Ox 95 95 97 Oxygen Delivery Method Room Air Room Air Room Air 01/12/24 01:00 01/12/24 03:00 Temperature 98.2 F Temperature Source Oral Pulse Rate 72 89 Respiratory Rate 18 18 Blood Pressure 127/59 H 131/87 H Blood Pressure Mean 81 101 Pulse Ox 92 97 Oxygen Delivery Method Room Air Positive well nourished and well developed General Appearance ED: well developed and NAD HEENT Reports moist mucous membranes normocephalic and atraumatic Eyes PERRL and EOMs intact bilaterally Neck full ROM and supple Resp normal respiratory effort and clear to auscultation bilaterally Cardio regular rate, regular rhythm and no murmurs GI GI Narrative: Mild diffuse distention. Mild right lower quadrant tenderness and mild tenderness throughout the left side no guarding or rebound or pulsatile mass. Hypoactive bowel sounds but they are present. Auscultation: normoactive bowel sounds and hypoactive bowel sounds Palpation: soft Back/Spine no CVA tenderness General Back: other FROM Extremity normal to inspection General Extremety ED: Negative for edema, pulses abnormal or tenderness General Extremity: Negative for edema or pulses abnormal Neuro oriented x3, CN's II-XII intact bilaterally and no sensory deficits noted Sensorium / Orientation: awake and alert Motor Exam: strength 5/5 throughout Psych mental status grossly normal and thought process normal Skin no rashes or lesions noted and no wounds MDM MDM MDM Narrative Medical decision making narrative: Obtain labs and a CT as well as urinalysis. I reviewed the CT images and the result which I agree with, the radiologist is suspicious that there is a small bowel obstruction with a transition point. There is also an inguinal hernia involving his ureter, the patient and states that is known and they have already talked to specialist about that and is being watched nonoperatively. The patient is not nauseated or vomiting. I discussed with Dr. Lutz with surgery. He reviewed the images. At this point he recommends an NG tube to light intermittent suction, n.p.o., admit to medicine given his plethora of other medical problems, and he will consult and order a small bowel series with follow-through in the morning. Lab Data Attestation: I reviewed the patient's lab results. Labs: Laboratory Results - last 24 hr 01/11/24 01/12/24 22:55 00:21 WBC 4.5 RBC 4.15 L Hgb 12.2 L Hct 37.8 L MCV 91.1 MCH 29.4 MCHC 32.3 RDW Std Deviation 49.2 H RDW Coeff of Devorah 14.7 H Plt Count 122 L MPV 10.2 Immature Gran % (Auto) 0.200 Neut % (Auto) 72.1 H Lymph % (Auto) 12.0 L Petroleum % (Auto) 13.1 H Eos % (Auto) 2.2 Baso % (Auto) 0.4 Absolute Neuts (auto) 3.2 Absolute Lymphs (auto) 0.54 L Nucleated RBC % 0 Sodium 140 Potassium 3.4 L Chloride 104 Carbon Dioxide 34.0 H Anion Gap 2 L BUN 15 Creatinine 0.86 Estim Creat Clear Calc 102.51 Est GFR (MDRD) Af Amer 111 Est GFR (MDRD) Non-Af 92 BUN/Creatinine Ratio 17.4 Glucose 129 H Calcium 8.5 Urine Color Yellow Urine Clarity Clear Urine pH 5.0 Ur Specific Otis 1.020 Urine Protein 15 H Urine Glucose (UA) Normal Urine Ketones Negative Urine Occult Blood Negative Urine Nitrite Negative Urine Bilirubin Negative Urine Urobilinogen Normal Ur Leukocyte Esterase Negative Urine RBC 0 SEEN Urine WBC 0 SEEN Ur Squamous Epith Cells 0 SEEN Urine Bacteria 0 SEEN Urine Mucus 0 SEEN Radiography Diagnostic Testing: Clinical Impression(s) from Imaging Studies Abdomen/Pelvis CT 01/11/24 22:43 IMPRESSION: 1. Distended and dilated loops of small bowel in the left abdomen measuring up to 4 cm. Possible transition point in the low midline, series 2 images 100-108. Findings may indicate a bowel obstruction secondary to stricture or adhesions. 2. There is a right inguinal hernia which contains a portion of the distal right ureter, with mild focal hydroureter. Electronically Signed: Oneil Brown MD at 1:21 EDT , KUB 1 view on my interpretation after NG placement confirms good placement of the end of the tube in the stomach. Management Discussion w/another healthcare provider: Hospitalist and Financial Supervisor ([facility]) Discharge Plan Dx/Rx/DC Orders Clinical Impression: SBO (small bowel obstruction) Disposition Disposition: Acute Care Hospital [facility] Discharge Date/Time: 01/12/24 05:36
[2024-01-11 23:00] VITALS: BP 135/59; PULSE 88; RESP 18; TEMP 36.6; O2SAT 97
[2024-01-11] MEDS: Dicyclomine 10 MG Capsule 20 MG PO (23:01)
[2024-01-11] MEDS: Ketorolac 15 MG/ML Vial 10 MG IV (23:01)
[2024-01-11] MEDS: 0.9% Normal Saline (1000mL) 1,000 ML 125 ML IV (23:02)
[2024-01-11 23:16] LABS: Absolute Lymphocyte Count 0.54 X10^3/uL (0.83-4.51); Absolute Neutrophil Count 3.2 X10^3/uL (2.0-7.7); Basophil# 0.02 X10^3/uL; Basophil% 0.4 % (0-1); Eosinophils% 2.2 % (0-5); Hematocrit 37.8 % (40-54); Hemoglobin 12.2 g/dL (13.0-16.5); Lymphocyte # 0.54 X10^3/ul (0.83-4.51); Mean Corp Hgb Conc 32.3 g/dL (32-36); Mean Corpuscular Hgb 29.4 pg (27.0-32.0); Mean Corpuscular Volume 91.1 fL (80-94); Mean Platelet Vol. 10.2 fl (6.2-12.0); Monocyte# 0.59 X10^3/uL; Monocyte% 13.1 % (0-10); NRBC Flagged by Analyzer 0 % (0-5); Neutrophil # 3.24 X10^3/uL (2.7-7.7); Neutrophil % 72.1 % (47-70); POSITIVE DIFFERENTIAL YES; Platelet Count 122 K/mm3 (150-450); RBC Distribution Width CV 14.7 % (11.6-14.6); RBC Distribution Width SD 49.2 fl (35.1-43.9); Red Blood Count 4.15 M/mm3 (4.6-6.2); White Blood Count 4.5 K/mm3 (4.4-11.0)
[2024-01-11 23:28] LABS: Anion Gap 2 (5-15); BUN 15 mg/dL (7-18); BUN/Creat Ratio 17.4 RATIO (10-20); Calcium,Total 8.5 mg/dL (8.5-10.1); Chloride 104 mmol/L (98-107); Creatinine, Serum 0.86 mg/dL (0.70-1.30); EST Glomerular Filtration Rate 92 mL/min (>60); Est Glom Filt Rate - Afr Amer 111 mL/min (>60); Estimated Creatinine Clearance 102.51 ml/min; Glucose 129 mg/dL (74-106); Potassium 3.4 mmol/L (3.5-5.1); Sodium Level 140 mmol/L (136-145)
[2024-01-12] VITALS (12 sets, daily range): BP systolic 119–150; BP diastolic 59–89; PULSE 72–89; RESP 16–18; TEMP 36.4–36.8; O2SAT 92–98; BMI 38.0; BMI 37.9
[2024-01-12 00:29] LABS: Bacteria 0 SEEN /hpf (None Seen); Mucous, Urine 0 SEEN /hpf (<or=2+); Red Blood Cells-Urine 0 SEEN /hpf (0-5); Squamous Epithelial Cells - UA 0 SEEN /hpf (0-5); White Blood Cells 0 SEEN /hpf (0-5)
[2024-01-12 00:36] LABS: Color, Urine Yellow (Yellow); Glucose, Dipstick Normal (Normal); Ketone-Dipstick Negative (Negative); Leukocyte Esterase-Dipstick Negative /ul (Negative); Nitrite-Dipstick Negative (Negative); Occult Blood-Urine Negative /ul (Negative); Protein-Dipstick 15 mg/dl (Negative); Urine Bilirubin Dipstick Negative (Negative); Urine Clarity Clear (Clear); Urine Urobilinogen Normal (Normal)
[2024-01-12] MEDS: Oxymetazoline 0.05% 1 SPRAY SPRAY.BTL 2 SPRAY NASAL (03:59)
--- NOTE | 2024-01-12 04:00 | HP.PCM.HOS_ITS ---
[facility] - [facility] General Date of Admission: 01/12/24 Date of Service: 01/12/24 Chief Complaint: Abdominal Pain, Bloating, Nausea and Vomiting. [facility] Narrative JAHAIRA BOUCHER, is a 78 M with a past medical history of essential hypertension, hyperlipidemia, obesity; with BMI of 39.3 this admission, remote history of tobacco abuse (quit ~1979), CAD; s/p CABG (2020), chronic diastolic CHF; with preserved LVEF, history of nonrheumatic aortic valve stenosis; s/p bioprosthetic AVR (2020), history of paroxysmal atrial fibrillation, PVD; with nonhealing wound of lower extremity, history of asthma, chronic anemia, history of eosinophilic fasciitis, history of nontraumatic rupture of tendon of Right quadriceps muscle, history of venous stasis dermatitis with lipodermatosclerosis, history of basal cell carcinoma; s/p excision, history of migraine headaches, depression with anxiety, IBS; on as needed dicyclomine, history of vertigo, BPH, GERD; with history of hiatal hernia and previous GI bleed, rosacea, degenerative disc disease of the lumbar spine and lumbar spondylosis; with chronic back pain, osteoarthritis of the Right knee, history of sigmoid volvulus; s/p hemicolectomy with recent screening colonoscopy done at routine 5-year surveillance interval apparently with no acute pathologic changes noted and history of bilateral inguinal hernia involving his Right ureter; with no plans for intervention who presents to [facility] ER complaining of abdominal pain, bloating, nausea and vomiting. Mr. Boucher reports his symptoms began approximately 2 days prior to admission with generalized abdominal discomfort, bloating and cramping mid-lower abdominal pain that seem to resolve after flatulence. Then over the past 24 hours he continues to have flatulence for which she took simethicone without improvement. He denies having any bowel movements but he does admit to nausea with bilious emesis and poor appetite throughout the day so he finally decided to come in for further evaluation and treatment. There is no report of fever, chills, diarrhea, constipation, chest pain, palpitations or SOB. In the ER he was noted to have CT evidence of SBO with distended and dilated loops of small bowel in the left abdomen measuring up to ~4 cm with a possible transition point in the low midline suspicious for a bowel obstruction secondary to stricture and/or adhesions along with a Right inguinal hernia which contains a portion of the distal ureter with mild focal hydroureter (that was previously known with no plans for intervention) complicated by laboratory evidence of mild hypokalemia of 3.4 mmol/L present on admission and he was then admitted to the general medical floor for ongoing care for a stay that is expected to extend beyond 2 midnights. [facility] Medical History Gastroesophageal reflux disease Osteoarthritis of right knee Eosinophilic fasciitis Right knee pain Paroxysmal atrial fibrillation Chronic heart failure with preserved ejection fraction (HFpEF) Atherosclerosis of coronary artery without angina pectoris Nonrheumatic aortic (valve) stenosis Osteoarthritis of right knee Nontraumatic rupture of tendon of right quadriceps muscle Lateral meniscus tear Right knee pain Quadriceps tendon rupture Wears glasses Wears partial dentures Cancer Alcohol use Hx of connective tissue disease Bladder disease Prostate disease Anemia Back pain Migraine headache Seizures History of hiatal hernia History of GI bleed History of ulceration History of IBS Gastric reflux Former smoker Shortness of breath on exertion Leg cramps Hypertension History of stress test History of echocardiogram Cardiology follow-up encounter History of atrial fibrillation Venous stasis dermatitis Depression Anxiety Benign prostate hyperplasia Debility Inability to ambulate due to multiple joints Bilateral lower leg cellulitis Bilateral edema of lower extremity Hemarthrosis of knee, left Eosinophilic fasciitis Degeneration of intervertebral disc Bilateral inguinal hernia without obstruction or gangrene Vertigo BPH (benign prostatic hyperplasia) Rosacea Cerebral aneurysm Essential hypertension Hyperlipidemia Anal fissure Obesity (BMI 30-39.9) Lipodermatosclerosis Hyperpigmentation Venous stasis ulcer Venous hypertension, chronic, with ulcer and inflammation Chronic venous insufficiency Non-healing wound of lower extremity Open wound Peripheral vascular disease of lower extremity with ulceration Home Medications ?Medication ?Instructions ?Recorded ?Last Taken ?Type finasteride 5 mg tablet 5 mg PO QHS URINARY RETENTION 07/08/17 01/02/23 History lorazepam 0.5 mg tablet 0.5 mg PO TID PRN ANXIETY 07/08/17 Unknown History biotin 10,000 mcg capsule (Etienne 10,000 mcg PO DAILY SUPPLEMENT 11/27/18 01/03/23 History Biotin) zinc 50 mg tablet 50 mg PO DAILY SUPPLEMENT 11/27/18 01/03/23 History metoprolol tartrate 50 mg tablet 50 mg PO BID BLOOD PRESSURE 12/31/20 01/03/23 History acetaminophen 500 mg tablet 500 mg PO Q6H PRN Pain 01/08/21 Unknown History amlodipine 5 mg tablet 5 mg PO DAILY BLOOD PRESSURE 01/08/21 01/03/23 History cholecalciferol (vitamin D3) 125 125 mcg PO DAILY SUPPLEMENT 01/08/21 01/03/23 History mcg (5,000 unit) tablet (Vitamin D3) multivit,Ca,min-iron 8 mg-folic 1 tab PO DAILY SUPPLEMENT 01/08/21 01/03/23 History acid 200 mcg-lycopene 600 mcg tablet (Centrum Men) venlafaxine 37.5 mg 37.5 mg PO DAILY ANTIDEPRESSANT 01/08/21 01/03/23 History capsule,extended release 24 hr aspirin 81 mg tablet,delayed 81 mg PO DAILY HEART HEALTH 06/06/21 01/03/23 History release (Adult Aspirin Regimen) lactobacillus combination no.9 4 8,000 mmu cells PO DAILY GUT HEALTH 06/06/21 01/03/23 History billion cell capsule (Adult 50 Plus Probiotic) vitamin K2 100 mcg capsule 100 mcg PO DAILY SUPPLEMENT 06/06/21 01/03/23 History rosuvastatin 20 mg tablet 20 mg PO DAILY CHOLESTEROL #90 tabs 01/25/22 01/03/23 Rx calcium carbonate 600 mg-vitamin 1 cap PO DAILY SUPPLEMENT 06/08/22 01/03/23 History D3 5 mcg (200 unit) capsule dicyclomine 20 mg tablet 20 mg PO BID PRN IRRITABLE BOWELS 06/08/22 Unknown History ipratropium bromide 42 mcg (0.06 2 spray intranasal BID allergies 06/14/23 Unknown History %) nasal spray fluticasone 100 mcg-salmeterol 50 1 inh inhalation BID asthma 09/28/23 Unknown History mcg/dose blistr powdr for inhalation (Wixela Inhub) ibuprofen 200 mg tablet 200 mg PO Q6H PRN pain 12/13/23 Unknown History melatonin 3 mg capsule 3 mg PO HS sleep 12/13/23 Unknown History naproxen sodium 220 mg capsule 220 mg PO BID PRN pain 12/13/23 Unknown History polyethylene glycol 3350 17 17 g PO DAILY PRN CONSTIPATION 12/13/23 Unknown History gram/dose oral powder psyllium husk 3.4 gram/5.4 gram 1 tsp PO DAILY CONSTIPATON 12/13/23 Unknown History oral powder (Metamucil) vitamin B complex 1 tab PO DAILY supplement 12/13/23 Unknown History furosemide 40 mg tablet 40 mg PO DAILY FLUID 01/12/24 Unknown History Allergy/AdvReac Type Severity Reaction Status Date / Time amoxicillin (From Augmentin) AdvReac Abd Verified 01/11/24 23:10 cramps/diarrhea clavulanic acid (From AdvReac Abd Verified 01/11/24 23:10 Augmentin) cramps/diarrhea hydromorphone (From Dilaudid) AdvReac Vomiting Verified 01/11/24 23:10 ibuprofen (From Motrin) AdvReac GI bleed Verified 01/11/24 23:10 Family History Mother Cancer uterine Father Cancer skin Diabetes CAD (coronary artery disease) CABG Surgical History History of aortic valve replacement with bioprosthetic valve (11/30/20) H/O coronary artery bypass surgery (11/30/20) History of cardiac catheterization History of basal cell carcinoma (BCC) excision History of rectal sphincterotomy History of colectomy History of excision of pilonidal cyst Social History household members: spouse Smoking Status: Former smoker how long ago did patient quit smokin years ago alcohol intake: current alcohol intake frequency: 0-2 drinks per day Alcohol type: beer substance use type: does not use caffeine: Yes Type: carbonated beverages Number of servings: 1 ROS ROS Narrative Review of systems: Constitutional: Patient denies fever, chills, weight loss/gain. Eyes: Patient denies changes in vision or discharge from eyes. ENT: Patient denies runny nose, sore throat or ear pain. CV: Patient denies chest pain, palpitations or heart racing. Resp: Patient denies shortness of breath or cough. GI: Patient admits to generalized intermittent cramping abdominal pain with nausea and bilious emesis. : Patient denies dysuria or hematuria. MSK: Patient denies arthralgias, myalgias, neck pain or back pain. Skin: Patient denies abscess, rash or jaundice. Psych: Patient denies symptoms of uncontrolled depression or anxiety. Neuro: Patient denies headache, paresthesias or focal neurologic deficits. Allergy: Patient denies lip swelling, tongue swelling or urticaria. Hematology: Patient denies easy bleeding or easy bruisability. Endocrinology: Patient denies polyuria, polydipsia or polyphagia. 14 point review of systems otherwise negative set for positives noted above in HPI. Vital Signs Vital Signs Vital Signs: 01/11/24 21:45 01/11/24 21:48 01/11/24 23:00 Temperature 97.2 F L 97.2 F L 98 F Temperature Source Temporal Temporal Temporal Pulse Rate 82 82 88 Respiratory Rate 16 16 18 Blood Pressure 155/69 H 155/69 H 135/59 H Blood Pressure Mean 97 97 84 Pulse Ox 95 95 97 Oxygen Delivery Method Room Air Room Air Room Air 01/12/24 01:00 01/12/24 03:00 Temperature 98.2 F Temperature Source Oral Pulse Rate 72 89 Respiratory Rate 18 18 Blood Pressure 127/59 H 131/87 H Blood Pressure Mean 81 101 Pulse Ox 92 97 Oxygen Delivery Method Room Air Weight Weight: 290 lb Body Mass Index (BMI) 39.3 Physical Exam Const alert, oriented x3 and no apparent distress Constitutional Narrative: Obese with distended abdomen. General Appearance: cooperative HEENT normocephalic, head/scalp atraumatic and hearing grossly normal bilaterally Eyes PERRL and EOMs intact bilaterally Neck no lymphadenopathy and supple Resp normal respiratory effort, no retractions, no use of accessory muscles and clear to auscultation bilaterally Cardio regular rate and regular rhythm GI GI Narrative: Abdomen is distended tender to palpation with hypoactive bowel sounds and NG tube in place. Extremity normal to inspection and full ROM Skin Skin Narrative: Patient has no evidence of rash, jaundice or abscess. Neuro oriented x3, CN's II-XII intact bilaterally, moves all extremities and no focal motor deficits Sensorium / Orientation: awake, alert, oriented to person, oriented to place and oriented to time Speech: speech normal Psych affect normal Results Medical Records Data Attestation: I reviewed the patient's medical records Lab / Micro Data Attestation: I reviewed the patient's lab results. 01/11/24 22:55 01/11/24 22:55 Labs: Laboratory Results - last 24 hr 01/11/24 22:55: WBC 4.5, RBC 4.15 L, Hgb 12.2 L, Hct 37.8 L, MCV 91.1, MCH 29.4, MCHC 32.3, RDW Std Deviation 49.2 H, RDW Coeff of Devorah 14.7 H, Plt Count 122 L, MPV 10.2, Immature Gran % (Auto) 0.200, Neut % (Auto) 72.1 H, Lymph % (Auto) 12.0 L, [place] % (Auto) 13.1 H, Eos % (Auto) 2.2, Baso % (Auto) 0.4, Absolute Neuts (auto) 3.2, Absolute Lymphs (auto) 0.54 L, Nucleated RBC % 0, Sodium 140, Potassium 3.4 L, Chloride 104, Carbon Dioxide 34.0 H, Anion Gap 2 L, BUN 15, Creatinine 0.86, Estim Creat Clear Calc 102.51, Est GFR (MDRD) Af Amer 111, Est GFR (MDRD) Non-Af 92, BUN/Creatinine Ratio 17.4, Glucose 129 H, Calcium 8.5 01/12/24 00:21: Urine Color Yellow, Urine Clarity Clear, Urine pH 5.0, Ur Specific Ponce 1.020, Urine Protein 15 H, Urine Glucose (UA) Normal, Urine Ketones Negative, Urine Occult Blood Negative, Urine Nitrite Negative, Urine Bilirubin Negative, Urine Urobilinogen Normal, Ur Leukocyte Esterase Negative, Urine RBC 0 SEEN, Urine WBC 0 SEEN, Ur Squamous Epith Cells 0 SEEN, Urine Bacteria 0 SEEN, Urine Mucus 0 SEEN Imaging Radiology Impression Abdomen/Pelvis CT 01/11/24 22:43 IMPRESSION: 1. Distended and dilated loops of small bowel in the left abdomen measuring up to 4 cm. Possible transition point in the low midline, series 2 images 100-108. Findings may indicate a bowel obstruction secondary to stricture or adhesions. 2. There is a right inguinal hernia which contains a portion of the distal right ureter, with mild focal hydroureter. Electronically Signed: Oneil Brown MD at 1:21 EDT , [facility] [address] [place] [address] Abdomen Single View (Portable) MR#: [id number] Acct: [id number] Name: JAHAIRA BOUCHER Rep #: [id number] : 1945 M 78 From: Oneil Brown MD PCP: Dr. Antonio Rangel MD Status: ADM IN Study: Abdomen Single View (Portable) Date of Exam: 01/12/24 Exam# [id number] Ordering Dr: Michael Vasquez MD EXAM: XR ABDOMEN, 1 VIEW CLINICAL INDICATION: NG Insertion TECHNIQUE: Frontal supine view of the abdomen/pelvis. COMPARISON: CT abdomen and pelvis from same date. FINDINGS: LOWER THORAX: No acute pathology. GASTROINTESTINAL TRACT: Dilated bowel loops in the visualized left abdomen. ORGANS: Unremarkable as visualized. No organomegaly. No abnormal calcifications. BONES/JOINTS: No acute pathology. SOFT TISSUES: No acute pathology. TUBES, LINES AND DEVICES: Enteric tube with tip in body of the stomach. RAD/Abdomen Single View (Portable) IMPRESSION: 1. Enteric tube with tip in body of the stomach. 2. Dilated bowel loops in the visualized left abdomen. Consistent with the recent CT findings. Electronically Signed: Oneil Brown MD at 6:13 EDT , CC: Dr. Michael Vasquez MD; Dr. Antonio Rangel MD ~ [facility] Teacher: Signed Assessment & Plan Assessment/Plan (1) SBO (small bowel obstruction): (2) Intractable nausea and vomiting: (3) Abdominal pain: QUALIFIERS: Abdominal location: generalized Qualified Code(s): R 10.84 - Generalized abdominal pain (4) Hypokalemia: (5) History of colectomy: (6) Gastroesophageal reflux disease: QUALIFIERS: Esophagitis presence: esophagitis presence not specified Qualified Code(s): K21.9 - Gastro-esophageal reflux disease without esophagitis (7) Obesity (BMI 30-39.9): PLAN: Plan 1. CT evidence of SBO with distended and dilated loops of small bowel in the left abdomen measuring up to ~4 cm with a possible transition point in the low midline suspicious for a bowel obstruction secondary to stricture and/or adhesions - Admit to general medical floor. Continue NG tube to LIWS. Keep strict n.p.o. and aggressively volume resuscitate. If Protonix 40 mg IV daily. Give IV Zofran as needed nausea or vomiting. Give morphine IV as needed for severe (level 6-10/10) pain. Finally, we will consult general surgeon on-call / Dr. Lutz see the patient on rounds in the a.m. for further recommendations with hopes to avoid surgical intervention if at all possible and help proceeded in advance. 2. Right inguinal hernia which contains a portion of the distal ureter with mild focal hydroureter (that was previously known with no plans for intervention) complicating #1 - Noted. 3. Intractable Nausea and Vomiting with bilious emesis arising from #1 & #2 - Place on aspiration precautions and give IV Zofran prn and give IVF to volume resuscitate. 4. Mild hypokalemia of 3.4 mmol/L present on admission compounding #1 & #2 - Give supplemental KCl and then recheck level in the AM to ensure improvement. 5. History of sigmoid volvulus; s/p hemicolectomy with recent screening colonoscopy done at routine 5-year surveillance interval apparently with no acute pathologic changes noted - Noted with adhesions related to this procedure suspected to be precipitating #1. 6. GERD; with history of hiatal hernia and previous GI bleed - Patient started on IV Protonix for #1. 7. Obesity; with BMI of 39.3 this admission adding to the pathology and disease burden of #1 - #7- Weight loss will be recommended. Check TSH. This complicates his case and may hamper his recovery. 8. Essential hypertension - Give Hydralazine IV prn for systolic BP > 160 mmHg. 9. Hyperlipidemia - Hold statin until acute pathologic issues outlined above have been resolved. 10. Remote history of tobacco abuse (quit ~1979) - Noted. 11. CAD; s/p CABG (2020) - Noted. 12. Chronic diastolic CHF; with preserved LVEF - Watch out for signs and symptoms of CHF. 13. History of nonrheumatic aortic valve stenosis; s/p bioprosthetic AVR (2020) - Apparently stable. 14. History of paroxysmal atrial fibrillation - Stable with patient in NSR currently. 15. PVD; with history of nonhealing wound of lower extremity - Noted. 16. History of asthma - Stable with no evidence of flare. 17. Chronic anemia - Stable with hemoglobin of 12.2 g/dL present on admission. 18. History of eosinophilic fasciitis - Noted. 19. History of nontraumatic rupture of tendon of Right quadriceps muscle - Noted. 20. History of venous stasis dermatitis with lipodermatosclerosis - Stable. 21. History of basal cell carcinoma; s/p excision - Noted. 22. History of migraine headaches - Stable with no evidence of recurrence at this time. 23. Depression with anxiety - Restart home regimen when patient is able to safely resume oral intake. 24. IBS; on as needed dicyclomine - Noted. 25. History of vertigo - Stable with no signs of recurrence. 26. BPH - Stable. 27. Rosacea - Stable. 28. Degenerative disc disease of the lumbar spine and lumbar spondylosis; with chronic back pain - Stable. 29. Osteoarthritis of the Right knee - Noted. 30. DVT prophylaxis - Lovenox 40 mg sq BID plus SCD's. Total time: Approximately 75 minutes. Charges/Coding Visit Charges Inpatient E&M: 51788 Init Hosp L3
--- NOTE | 2024-01-12 04:06 | ED.RN ---
2 attempts with ng. pt could not tolerate. aware. new orders received. waiting on medication.
[2024-01-12] MEDS: Lidocaine 4% 5 ML Ampul INHALATION (04:38)
--- NOTE | 2024-01-12 05:00 | RAD_ITS ---
EXAM: XR ABDOMEN, 1 VIEW CLINICAL INDICATION: NG Insertion TECHNIQUE: Frontal supine view of the abdomen/pelvis. COMPARISON: CT abdomen and pelvis from same date. FINDINGS: LOWER THORAX: No acute pathology. GASTROINTESTINAL TRACT: Dilated bowel loops in the visualized left abdomen. ORGANS: Unremarkable as visualized. No organomegaly. No abnormal calcifications. BONES/JOINTS: No acute pathology. SOFT TISSUES: No acute pathology. TUBES, LINES AND DEVICES: Enteric tube with tip in body of the stomach. RAD/Abdomen Single View (Portable) IMPRESSION: 1. Enteric tube with tip in body of the stomach. 2. Dilated bowel loops in the visualized left abdomen. Consistent with the recent CT findings. Electronically Signed: Oneil Brown MD at 6:13 EDT ,
[2024-01-12] MEDS: 0.9% Normal Saline (1000mL) 1,000 ML 125 ML IV ×2 (06:49→17:27)
[2024-01-12] MEDS: Albuterol 2.5 MG/3 ML VIAL.NEB. INHALATION ×2 (07:22→20:44)
[2024-01-12] MEDS: Budesonide Respules 0.5 MG/2 ML AMPUL.NEB. INHALATION ×2 (07:22→20:51)
[2024-01-12 07:46] LABS: Magnesium 2.3 mg/dL (1.6-2.6); Phosphorus 2.8 mg/dL (2.5-4.9)
[2024-01-12] MEDS: Enoxaparin 40 MG/0.4 ML Syringe SC ×2 (08:55→21:13)
[2024-01-12] MEDS: Ipratropium Bromide 0.06% NASAL SPRAY 2 SPRAY NASAL ×2 (08:59→21:12)
--- NOTE | 2024-01-12 09:07 | CON.PCM.SX_ITS ---
Assessment & Plan Assessment/Plan (1) SBO (small bowel obstruction): PLAN: Patient is a 78-year-old male who presents for acute onset abdominal discomfort and bloating. ER workup was consistent with a bowel obstruction. Prior abdominal surgical history consists only of a open sigmoid colectomy in 2018. In my review of patient's CT imaging identified a transition point as indicated by radiology, however, this transition appears to occur within the distal colon and not the small bowel. I find several aspects of Mr. Boucher's presentation peculiar?notably: His presentation following a normal colonoscopy 2 days prior, the presence of a low-grade fever, persistence of flatus after presentation, and the discrepancy with the CT findings already mentioned. There was distention of the stomach on his CT imaging so I requested placement of a nasogastric tube and thus far this tube is yielded over 600 mL of dark brown aspirate. I have confirmed that patient is on a PPI for gastric mucosal protection. This is also led to some symptomatic improvement, but Mr. Boucher still denies further signs of bowel function. I would like to continue decompression for another 3 hours or so before we initiate a small bowel follow- through. Mr. Boucher is advised that he should stay in the chair is much as possible during the study given the aspiration risk. I have also shared with him the implications of the contrast not propagating through the bowel. Mr. Boucher expresses understanding and appreciation. Will continue to follow. Ming Lutz MD General Surgery Endocrine Surgery Pager: [facility] [address] [place] [address], [address] [place] [address] Office: [phone] HPI Consult Data Date of Consult: 01/12/24 HPI Narrative Reason for Consultation: Small bowel obstruction HPI Narrative: JAHAIRA BOUCHER, is a 78 M who presented to [facility] on 01/11/2024 after experiencing acute onset of progressive abdominal discomfort and bloating. He shares that he underwent a routine screening colonoscopy on 01/09/[address] Bean at [facility] and the following morning woke up with a fever of 101F. He was seen by his primary care provider that same day and was informed they had no strong concerns based on his exam. Mr. Boucher shares that he went on to have more abdominal discomfort and bloating the next day and decided to present for evaluation. Here in the emergency department patient's CT of the abdomen pelvis showed dilated proximal bowel with apparent transition in the left lower quadrant as well as bilateral inguinal hernias with the right inguinal hernia containing a portion of patient's ureter contributing mild hydroureter. Patient has a complex past medical history inclusive of CAD status post CABG with paroxysmal atrial fibrillation. He denies any routine use of anticoagulation. In 2018 patient underwent urgent sigmoid colectomy for presentation of sigmoid volvulus that was initially decompressed endoscopically. This procedure was performed by Dr. Fox and represents Mr. Boucher's only past surgical history with respect to his abdominal domain. Mr. Boucher confesses that he is dealt with constipation his whole life and this was only modestly improved after his colectomy procedure. It was because of these complaints that he was advised to go for his repeat colonoscopy that was conducted earlier this week. He shares that he was given noticed that there were no significant findings on this colonoscopy, but also that he should seek a derrick boat leverman if he requires a another colonoscopy in the future because Dr. Bean had difficulty through his tortuous colon. I was notified about Mr. Boucher's presentation to the emergency department and requested a nasogastric tube be placed. Postplacement KUB confirms appropriate positioning. Mr. Boucher shares that he feels better this morning after placement and that his abdominal discomfort is also improved. However, he denies passage of flatus this morning and shares that his last passage of flatus occurred last night during his ER evaluation. [facility] Medical History Gastroesophageal reflux disease Osteoarthritis of right knee Eosinophilic fasciitis Right knee pain Paroxysmal atrial fibrillation Chronic heart failure with preserved ejection fraction (HFpEF) Atherosclerosis of coronary artery without angina pectoris Nonrheumatic aortic (valve) stenosis Osteoarthritis of right knee Nontraumatic rupture of tendon of right quadriceps muscle Lateral meniscus tear Right knee pain Quadriceps tendon rupture Wears glasses Wears partial dentures Cancer Alcohol use Hx of connective tissue disease Bladder disease Prostate disease Anemia Back pain Migraine headache Seizures History of hiatal hernia History of GI bleed History of ulceration History of IBS Gastric reflux Former smoker Shortness of breath on exertion Leg cramps Hypertension History of stress test History of echocardiogram Cardiology follow-up encounter History of atrial fibrillation Venous stasis dermatitis Depression Anxiety Benign prostate hyperplasia Debility Inability to ambulate due to multiple joints Bilateral lower leg cellulitis Bilateral edema of lower extremity Hemarthrosis of knee, left Eosinophilic fasciitis Degeneration of intervertebral disc Bilateral inguinal hernia without obstruction or gangrene Vertigo BPH (benign prostatic hyperplasia) Rosacea Cerebral aneurysm Essential hypertension Hyperlipidemia Anal fissure Obesity (BMI 30-39.9) Lipodermatosclerosis Hyperpigmentation Venous stasis ulcer Venous hypertension, chronic, with ulcer and inflammation Chronic venous insufficiency Non-healing wound of lower extremity Open wound Peripheral vascular disease of lower extremity with ulceration Home Medications ?Medication ?Instructions ?Recorded ?Last Taken ?Type finasteride 5 mg tablet 5 mg PO QHS URINARY RETENTION 07/08/17 01/02/23 History lorazepam 0.5 mg tablet 0.5 mg PO TID PRN ANXIETY 07/08/17 Unknown History biotin 10,000 mcg capsule (Etienne 10,000 mcg PO DAILY SUPPLEMENT 11/27/18 01/03/23 History Biotin) zinc 50 mg tablet 50 mg PO DAILY SUPPLEMENT 11/27/18 01/03/23 History metoprolol tartrate 50 mg tablet 50 mg PO BID BLOOD PRESSURE 12/31/20 01/03/23 History acetaminophen 500 mg tablet 500 mg PO Q6H PRN Pain 01/08/21 Unknown History amlodipine 5 mg tablet 5 mg PO DAILY BLOOD PRESSURE 01/08/21 01/03/23 History cholecalciferol (vitamin D3) 125 125 mcg PO DAILY SUPPLEMENT 01/08/21 01/03/23 History mcg (5,000 unit) tablet (Vitamin D3) multivit,Ca,min-iron 8 mg-folic 1 tab PO DAILY SUPPLEMENT 01/08/21 01/03/23 History acid 200 mcg-lycopene 600 mcg tablet (Centrum Men) venlafaxine 37.5 mg 37.5 mg PO DAILY ANTIDEPRESSANT 01/08/21 01/03/23 History capsule,extended release 24 hr aspirin 81 mg tablet,delayed 81 mg PO DAILY HEART HEALTH 06/06/21 01/03/23 History release (Adult Aspirin Regimen) lactobacillus combination no.9 4 8,000 mmu cells PO DAILY GUT HEALTH 06/06/21 01/03/23 History billion cell capsule (Adult 50 Plus Probiotic) vitamin K2 100 mcg capsule 100 mcg PO DAILY SUPPLEMENT 06/06/21 01/03/23 History rosuvastatin 20 mg tablet 20 mg PO DAILY CHOLESTEROL #90 tabs 01/25/22 01/03/23 Rx calcium carbonate 600 mg-vitamin 1 cap PO DAILY SUPPLEMENT 06/08/22 01/03/23 History D3 5 mcg (200 unit) capsule dicyclomine 20 mg tablet 20 mg PO BID PRN IRRITABLE BOWELS 06/08/22 Unknown History ipratropium bromide 42 mcg (0.06 2 spray intranasal BID allergies 06/14/23 Unknown History %) nasal spray fluticasone 100 mcg-salmeterol 50 1 inh inhalation BID asthma 09/28/23 Unknown History mcg/dose blistr powdr for inhalation (Wixela Inhub) ibuprofen 200 mg tablet 200 mg PO Q6H PRN pain 12/13/23 Unknown History melatonin 3 mg capsule 3 mg PO HS sleep 12/13/23 Unknown History naproxen sodium 220 mg capsule 220 mg PO BID PRN pain 12/13/23 Unknown History polyethylene glycol 3350 17 17 g PO DAILY PRN CONSTIPATION 12/13/23 Unknown History gram/dose oral powder psyllium husk 3.4 gram/5.4 gram 1 tsp PO DAILY CONSTIPATON 12/13/23 Unknown History oral powder (Metamucil) vitamin B complex 1 tab PO DAILY supplement 12/13/23 Unknown History furosemide 40 mg tablet 40 mg PO DAILY FLUID 01/12/24 Unknown History Allergy/AdvReac Type Severity Reaction Status Date / Time amoxicillin (From Augmentin) AdvReac Abd Verified 01/11/24 23:10 cramps/diarrhea clavulanic acid (From AdvReac Abd Verified 01/11/24 23:10 Augmentin) cramps/diarrhea hydromorphone (From Dilaudid) AdvReac Vomiting Verified 01/11/24 23:10 ibuprofen (From Motrin) AdvReac GI bleed Verified 01/11/24 23:10 Family History Mother Cancer uterine Father Cancer skin Diabetes CAD (coronary artery disease) CABG Surgical History History of aortic valve replacement with bioprosthetic valve (11/30/20) H/O coronary artery bypass surgery (11/30/20) History of cardiac catheterization History of basal cell carcinoma (BCC) excision History of rectal sphincterotomy History of colectomy History of excision of pilonidal cyst Social History household members: spouse Smoking Status: Former smoker how long ago did patient quit smokin years ago alcohol intake: current alcohol intake frequency: 0-2 drinks per day Alcohol type: beer substance use type: does not use caffeine: Yes Type: carbonated beverages Number of servings: 1 Physical Exam Const alert, oriented x3 and no apparent distress Nutritional Appearance: obese HEENT HEENT Narrative: Nasogastric tube present in right nare. GI GI Narrative: Nasogastric tube present in right nare with some thin brown output in the tubing as well as in the sump channel. The sump channel was then flushed and the tube function was restored. Patient's abdomen is mild to moderately distended. It is somewhat firm but patient denies tenderness with palpation. A small laparotomy scar is present at patient's umbilicus and running inferiorly towards the pubis. No visible ventral hernia. Lab / Micro Data 01/11/24 22:55 01/11/24 22:55 Labs: Laboratory Results - last 24 hr 01/11/24 22:55: WBC 4.5, RBC 4.15 L, Hgb 12.2 L, Hct 37.8 L, MCV 91.1, MCH 29.4, MCHC 32.3, RDW Std Deviation 49.2 H, RDW Coeff of Devorah 14.7 H, Plt Count 122 L, MPV 10.2, Immature Gran % (Auto) 0.200, Neut % (Auto) 72.1 H, Lymph % (Auto) 12.0 L, Douglas % (Auto) 13.1 H, Eos % (Auto) 2.2, Baso % (Auto) 0.4, Absolute Neuts (auto) 3.2, Absolute Lymphs (auto) 0.54 L, Nucleated RBC % 0, Sodium 140, Potassium 3.4 L, Chloride 104, Carbon Dioxide 34.0 H, Anion Gap 2 L, BUN 15, Creatinine 0.86, Estim Creat Clear Calc 102.51, Est GFR (MDRD) Af Amer 111, Est GFR (MDRD) Non-Af 92, BUN/Creatinine Ratio 17.4, Glucose 129 H, Calcium 8.5 01/12/24 00:21: Urine Color Yellow, Urine Clarity Clear, Urine pH 5.0, Ur Specific [place] 1.020, Urine Protein 15 H, Urine Glucose (UA) Normal, Urine Ketones Negative, Urine Occult Blood Negative, Urine Nitrite Negative, Urine Bilirubin Negative, Urine Urobilinogen Normal, Ur Leukocyte Esterase Negative, Urine RBC 0 SEEN, Urine WBC 0 SEEN, Ur Squamous Epith Cells 0 SEEN, Urine Bacteria 0 SEEN, Urine Mucus 0 SEEN 01/12/24 06:36: Phosphorus 2.8, Magnesium 2.3, TSH 2.240 Imaging Radiology Impression Abdomen/Pelvis CT 01/11/24 22:43 IMPRESSION: 1. Distended and dilated loops of small bowel in the left abdomen measuring up to 4 cm. Possible transition point in the low midline, series 2 images 100-108. Findings may indicate a bowel obstruction secondary to stricture or adhesions. 2. There is a right inguinal hernia which contains a portion of the distal right ureter, with mild focal hydroureter. Electronically Signed: Oneil Brown MD at 1:21 EDT , KUB X-Ray 01/12/24 05:00 IMPRESSION: 1. Enteric tube with tip in body of the stomach. 2. Dilated bowel loops in the visualized left abdomen. Consistent with the recent CT findings. Electronically Signed: Oneil Brown MD at 6:13 EDT , Charges/Coding Visit Charges Inpatient E&M: 83593 Init Hosp L2
[2024-01-12] MEDS: Pantoprazole Sodium 40 MG in 0.9% Normal Saline (100mL MB+) 100 ML 330 MG IV ×2 (09:24→21:11)
[2024-01-12] MEDS: Phenol/Sodium Phenolate 180ML 3 SPRAY MUCOUS MEM (09:46)
[2024-01-12] MEDS: Sodium Chloride 0.65% 1 SPRAY SPRAY.BTL NASAL (09:46)
--- NOTE | 2024-01-12 09:55 | CASEMGMT ---
RN CM Face to Face with patient for initial transition planning/care coordination assessment. RN CM introduced self and role at [facility]. Patient sitting in chair, alert and oriented. Patient willing to participate in assessment and is able to answer all questions appropriately. Care providers, pharmacy, and demographics verified. Strata: 2 PCP: Juan Carlos Specialists: Urologist Bora; Photo Graphics Librarian Bora; Danuta, body mechanic; Cecile Sheth, certified drug counselor; Preferred Pharmacy: [facility] Insurance: [facility], [facility] Prescription Benefit: yes Living Will/HPOA: yes, Aileen Boucher LNOK: Living Arrangements: Patient lives with in a 2 story home. Patient is independent and able to ambulate stairs. Transportation: self, DME/HHC: Patient has shower chair, BSC, raised toilet, cane, walker, and grab bars at home. Patient has been to TCU in the past. Patient has had [facility] in the past. Patient wishes to discharge home, denies need for home health at this time. Patient states he has no further needs or concerns at this time. CM to follow for discharge planning needs that may arise. Disposition Plan: Patient to discharge home with family support and follow-up plans in place. Ani ROYAL, RN, CM
--- NOTE | 2024-01-12 12:05 | RAD_ITS ---
EXAM: FL SMALL BOWEL FOLLOW THROUGH CLINICAL INDICATION: f/u SBO -- Films: Immediately post GG, 6 h, 12 h, and 24h TECHNIQUE: Fluoroscopy of the small bowel including multiple serial delayed images following oral contrast administration. Fluoroscopic guidance was provided by a physician. This is a radiographic small bowel follow-through consisting of 16 images. COMPARISON: No relevant prior studies available. FINDINGS: SMALL BOWEL: The first set of images reveal an enteric tube extending below the level of the GE junction with moderate small bowel gaseous distention suggesting small bowel obstruction or ileus. Subsequent images reveal contrast within the stomach and small bowel and on later images identified within the colon indicating ileus rather than obstruction. OTHER FINDINGS: There is excreted contrast within the urinary bladder. RAD/Small Bowel Series Only IMPRESSION: Contrast transits into the colon indicating ileus rather than obstruction. Electronically Signed: Isac Segundo DO at 11:50 EDT ,
--- NOTE | 2024-01-12 14:41 | PCM.HOSP.N ---
Hospitalist Note Patient was seen and examined today, his abdomen appears distended, he has an NG tube in place and an upper GI is planned for this afternoon with small bowel follow-through. Patient voices no complaints at the present time. He appears to be comfortable.
--- NOTE | 2024-01-12 15:20 | NURSING ---
Eulalio from lab called this RN approximately an hour ago and informed this RN that Lactic Acid that was ordered for pt was never run. Eulalio asked this RN if they should get another lactic acid on the pt. This RN informed him that this RN would have to talk with Dr. Lutz. Dr. Lutz aware of the above and wanted to get his Lactic acid level now. This RN called and spoke with Lilia from Lab as Eulalio has already gone home and explained the situation to her and explained that it was important to get this lactic acid and run it.
[2024-01-12 16:14] LABS: Lactic Acid 0.8 mmol/L (0.4-1.9)
[2024-01-13] VITALS (7 sets, daily range): BP systolic 131–143; BP diastolic 58–78; PULSE 77–103; RESP 15–18; TEMP 36.4–36.8; O2SAT 92–99; BMI 38.2
[2024-01-13] MEDS: 0.9% Normal Saline (1000mL) 1,000 ML 125 ML IV ×3 (03:15→22:45)
[2024-01-13 06:11] LABS: Absolute Lymphocyte Count 0.69 X10^3/uL (0.83-4.51); Absolute Neutrophil Count 2.6 X10^3/uL (2.0-7.7); Basophil# 0.02 X10^3/uL; Basophil% 0.5 % (0-1); Eosinophils% 2.5 % (0-5); Hematocrit 35.7 % (40-54); Hemoglobin 11.5 g/dL (13.0-16.5); Lymphocyte # 0.69 X10^3/ul (0.83-4.51); Lymphocyte % 17.5 % (19-41); Mean Corp Hgb Conc 32.2 g/dL (32-36); Mean Corpuscular Hgb 29.8 pg (27.0-32.0); Mean Corpuscular Volume 92.5 fL (80-94); Mean Platelet Vol. 10.4 fl (6.2-12.0); Monocyte# 0.49 X10^3/uL; Monocyte% 12.4 % (0-10); NRBC Flagged by Analyzer 0 % (0-5); Neutrophil # 2.62 X10^3/uL (2.7-7.7); Neutrophil % 66.6 % (47-70); Platelet Count 119 K/mm3 (150-450); RBC Distribution Width CV 14.6 % (11.6-14.6); RBC Distribution Width SD 49.6 fl (35.1-43.9); Red Blood Count 3.86 M/mm3 (4.6-6.2); White Blood Count 3.9 K/mm3 (4.4-11.0)
[2024-01-13 07:10] LABS: ALB/GLOB Ratio 0.9 RATIO (0.9-2.4); AST(SGOT) 13 U/L (15-37); Alanine Aminotransfer ALT/SGPT 18 U/L (16-61); Albumin, Serum 2.7 g/dL (3.2-5.0); Alkaline Phosphatase 44 U/L (45-117); Anion Gap 4 (5-15); BUN 10 mg/dL (7-18); BUN/Creat Ratio 13.3 RATIO (10-20); Chloride 109 mmol/L (98-107); Creatinine, Serum 0.75 mg/dL (0.70-1.30); EST Glomerular Filtration Rate 107 mL/min (>60); Est Glom Filt Rate - Afr Amer 129 mL/min (>60); Estimated Creatinine Clearance 108.53 ml/min; Glucose 94 mg/dL (74-106); Potassium 3.3 mmol/L (3.5-5.1); Protein, Total 5.7 g/dL (6.4-8.2); Sodium Level 142 mmol/L (136-145)
--- NOTE | 2024-01-13 07:14 | RAD_ITS ---
STUDY: X-RAY - ABDOMEN/PELVIS REASON FOR EXAM: Male, 78 years old. f/u bowel obstruction TECHNIQUE: 3 AP supine views of the abdomen and pelvis. COMPARISON: CT of abdomen and pelvis dated January 12, 2024 FINDINGS: Normal visualized lung bases. The feeding tube is in the proximal stomach. Persistent moderate gaseous distention of small bowel loops consistent with ileus. Oral contrast is seen in the distal ileum as well as the proximal colon, transverse colon, and descending colon indicating no complete or high-grade obstruction is present. No demonstrated extraluminal leakage of oral contrast. There is no demonstrated free abdominal air. Normal soft tissue structures. Normal visualized osseous structures. RAD/Abdomen Single View (Portable) IMPRESSION: 1. Persistent moderate gaseous distention of small bowel loops consistent with ileus. Oral contrast is seen in the distal ileum as well as the proximal colon, transverse colon, and descending colon indicating no complete or high-grade obstruction is present. Electronically Signed: Jeremy Vuong MD at 8:54 EDT ,
--- NOTE | 2024-01-13 07:16 | PCM.PN.SRG ---
Subjective Subjective Pt found sitting out of bed in chair. Reports BM X 2 (Nursing states X3) with some solids. Denies nausea and expresses an appetite. Denies ab pain. Objective Data Objective Data Vital Signs: Vital Signs Temp Pulse Resp BP Pulse Ox O2 Del Method 97.6 F L 88 16 143/73 H 94 Room Air 01/13/24 03:20 01/13/24 03:20 01/13/24 03:20 01/13/24 03:20 01/13/24 03:20 01/13/24 03:20 Oxygen Delivery Method Room Air Weight: 281 lb 12.012 oz Body Mass Index (BMI) 38.2 Intake & Output: Intake and Output for Last 24 Hours 01/11/24 01/12/24 01/13/24 23:59 23:59 23:59 Intake Total 2612.92 / 2612.92 1000 / 1000 Output Total 700 / 700 Balance 1912.92 / 1912.92 1000 / 1000 Lab / Micro Data 01/13/24 05:42 01/13/24 05:42 Labs: Laboratory Results - last 24 hr 01/12/24 04:33: Lactic Acid Cancelled 01/12/24 06:36: Phosphorus 2.8, Magnesium 2.3, TSH 2.240 01/12/24 15:41: Lactic Acid 0.8 01/13/24 05:42: WBC 3.9 L, RBC 3.86 L, Hgb 11.5 L, Hct 35.7 L, MCV 92.5, MCH 29.8, MCHC 32.2, RDW Std Deviation 49.6 H, RDW Coeff of Devorah 14.6, Plt Count 119 L, MPV 10.4, Immature Gran % (Auto) 0.500, Neut % (Auto) 66.6, Lymph % (Auto) 17.5 L, [place] % (Auto) 12.4 H, Eos % (Auto) 2.5, Baso % (Auto) 0.5, Absolute Neuts (auto) 2.6, Absolute Lymphs (auto) 0.69 L, Nucleated RBC % 0, Sodium 142, Potassium 3.3 L, Chloride 109 H, Carbon Dioxide 29.0, Anion Gap 4 L, BUN 10, Creatinine 0.75, Estim Creat Clear Calc 108.53, Est GFR (MDRD) Af Amer 129, Est GFR (MDRD) Non-Af 107, BUN/Creatinine Ratio 13.3, Glucose 94, Calcium 8.0 L, Total Bilirubin 0.40, AST 13 L, ALT 18, Alkaline Phosphatase 44 L, Total Protein 5.7 L, Albumin 2.7 L, Globulin 3.0, Albumin/Globulin Ratio 0.9 Physical Exam Const oriented x3 and no apparent distress Resp normal respiratory effort GI GI Narrative: Mild to moderately distended, nontender to palpation, less tympanic Assessment & Plan Assessment/Plan (1) SBO (small bowel obstruction): PLAN: Patient is a 78-year-old male who presents for acute onset abdominal discomfort and bloating. ER workup was consistent with a bowel obstruction. Patient completed small bowel follow-through with relatively normal transit time to the colon, however, the small bowel diameter appears dilated persistently. This is more consistent with an ileus picture. Given the patient was able to tolerate clamping of his nasogastric tube x 24 hours without nausea and vomiting I discontinued the tube and initiated a clear liquid diet. Will follow for tolerance. However, I do believe it is prudent to await proof of tolerance before relying on enteral absorption for medications. Ming Lutz MD General Surgery Endocrine Surgery Pager: [facility] [address] [place] [address], [facility], [address] [place] [address] Office: [phone] Charges/Coding Visit Charges Inpatient E&M: 66598 Subs Hosp L2
[2024-01-13] MEDS: Albuterol 2.5 MG/3 ML VIAL.NEB. INHALATION ×2 (08:23→20:15)
[2024-01-13] MEDS: Budesonide Respules 0.5 MG/2 ML AMPUL.NEB. INHALATION ×2 (08:23→20:15)
[2024-01-13] MEDS: Pantoprazole Sodium 40 MG in 0.9% Normal Saline (100mL MB+) 100 ML 330 MG IV ×2 (09:25→21:48)
[2024-01-13] MEDS: Enoxaparin 40 MG/0.4 ML Syringe SC ×2 (09:28→21:48)
[2024-01-13] MEDS: 0.9% Normal Saline (250mL Bag) 250 ML 15 ML IV (10:05)
[2024-01-13] MEDS: Potassium Chloride 10mEq/100mL 10 MEQ/100 ML IV.SOLN. 100 MEQ IV BOLUS ×2 (10:05→11:32)
--- NOTE | 2024-01-13 11:11 | PCM.PN.HOSP ---
Reason for Visit Reason for Visit: Diagnoses Obesity, unspecified (01/12/24) Hypokalemia (01/12/24) Gastro-esophageal reflux disease without esophagitis (01/12/24) Unspecified intestinal obstruction, unspecified as to partial versus complete obstruction (01/12/24) Generalized abdominal pain (01/12/24) Nausea with vomiting, unspecified (01/12/24) Acquired absence of other specified parts of digestive tract (01/12/24) Subjective Subjective Patient was seen and examined today, he has had several bowel movements, KUB shows contrast in the colon from his upper GI yesterday. Objective Data Objective Data Vital Signs: Vital Signs Temp Pulse Resp BP Pulse Ox O2 Del Method 98.2 F 91 18 132/76 H 92 Room Air 01/13/24 10:00 01/13/24 10:00 01/13/24 10:00 01/13/24 10:00 01/13/24 10:00 01/13/24 10:00 Oxygen Delivery Method Room Air Weight: 127.8 kg Body Mass Index (BMI) 38.2 Intake & Output: Intake and Output for Last 24 Hours 01/11/24 01/12/24 01/13/24 23:59 23:59 23:59 Intake Total 2612.92 / 2612.92 1110 / 1110 Output Total 700 / 700 Balance 1912.92 / 1912.92 1110 / 1110 Lab / Micro Data 01/13/24 05:42 01/13/24 05:42 Labs: Laboratory Results - last 24 hr 01/12/24 04:33: Lactic Acid Cancelled 01/12/24 15:41: Lactic Acid 0.8 01/13/24 05:42: WBC 3.9 L, RBC 3.86 L, Hgb 11.5 L, Hct 35.7 L, MCV 92.5, MCH 29.8, MCHC 32.2, RDW Std Deviation 49.6 H, RDW Coeff of Devorah 14.6, Plt Count 119 L, MPV 10.4, Immature Gran % (Auto) 0.500, Neut % (Auto) 66.6, Lymph % (Auto) 17.5 L, [place] % (Auto) 12.4 H, Eos % (Auto) 2.5, Baso % (Auto) 0.5, Absolute Neuts (auto) 2.6, Absolute Lymphs (auto) 0.69 L, Nucleated RBC % 0, Sodium 142, Potassium 3.3 L, Chloride 109 H, Carbon Dioxide 29.0, Anion Gap 4 L, BUN 10, Creatinine 0.75, Estim Creat Clear Calc 108.53, Est GFR (MDRD) Af Amer 129, Est GFR (MDRD) Non-Af 107, BUN/Creatinine Ratio 13.3, Glucose 94, Calcium 8.0 L, Total Bilirubin 0.40, AST 13 L, ALT 18, Alkaline Phosphatase 44 L, Total Protein 5.7 L, Albumin 2.7 L, Globulin 3.0, Albumin/Globulin Ratio 0.9 Radiography Diagnostic Testing: Radiology Impression KUB X-Ray 01/13/24 07:14 IMPRESSION: 1. Persistent moderate gaseous distention of small bowel loops consistent with ileus. Oral contrast is seen in the distal ileum as well as the proximal colon, transverse colon, and descending colon indicating no complete or high-grade obstruction is present. Electronically Signed: Jeremy Vuong MD at 8:54 EDT Reading Location ID and State: [facility] / [place] , Service support , Physical Exam Const alert, oriented x3, no apparent distress and healthy appearing General Appearance: cooperative, well kempt and well developed Orientation / Consciousness: awake, oriented to person, oriented to place and oriented to time HEENT normocephalic, head/scalp atraumatic and moist oral mucous membranes Eyes PERRL, EOMs intact bilaterally and conjunctivae normal Neck supple, no JVD, thyroid normal and no carotid bruits General: trachea midline Resp normal respiratory effort, no retractions, no use of accessory muscles and clear to auscultation bilaterally Auscultation: Negative for rales, rhonchi or wheezes Cardio regular rate, regular rhythm, S1 normal heart sound, S2 normal heart sound, no murmurs, no rub and no gallops GI soft to palpation and non-tender GI Narrative: Abdomen is diffusely distended, it is nontender Auscultation: hypoactive bowel sounds Extremity no clubbing, cyanosis or edema Skin no rashes or lesions noted General Skin Exam: no breakdown Neuro oriented x3, CN's II-XII intact bilaterally, moves all extremities, no focal motor deficits and no sensory deficits noted Sensorium / Orientation: awake and alert Speech: speech normal Psych affect normal Assessment & Plan Assessment/Plan (1) SBO (small bowel obstruction): PLAN: Plan 1. Small bowel obstruction-resolved at this time, continue present treatment per general surgery #2 essential hypertension-due to the patient's NG tube is hypertension medication is being held at this time #3 hyperlipidemia-patient is on a statin at home-this is being held at this time #4 chronic anxiety/depression-patient is on Effexor, this is being held at this time Total clinical time spent by myself addressing the patient's medical issues, reviewing all of his data, and collaborating with patient's care team: 35 minutes Charges/Coding Visit Charges Inpatient E&M: 36067 Subs Hosp L2
--- NOTE | 2024-01-13 15:03 | NURSING ---
This RN asked Dr. Lutz if the rate of the IVF should be decreased and if we should re-start his home meds. Dr. Lutz did not want to resume home meds yet or decrease IVF.
--- NOTE | 2024-01-13 17:36 | NURSING ---
pt walking in [place] with his at this time.
[2024-01-14] VITALS (9 sets, daily range): BP systolic 121–145; BP diastolic 50–72; PULSE 79–92; RESP 15–20; TEMP 36.4–36.8; O2SAT 92–99; BMI 40.6
[2024-01-14] MEDS: Albuterol 2.5 MG/3 ML VIAL.NEB. INHALATION ×3 (06:38→20:03)
[2024-01-14] MEDS: Budesonide Respules 0.5 MG/2 ML AMPUL.NEB. INHALATION ×2 (06:38→20:03)
[2024-01-14] MEDS: Enoxaparin 40 MG/0.4 ML Syringe SC ×2 (09:02→22:00)
[2024-01-14] MEDS: Pantoprazole Sodium 40 MG in 0.9% Normal Saline (100mL MB+) 100 ML 330 MG IV ×2 (09:05→22:00)
--- NOTE | 2024-01-14 09:31 | PCM.PN.SRG ---
Subjective Subjective Patient seen and examined during AM rounds. He is found sitting out of bed in the chair. He shares that he seems to be tolerating clear liquids without nausea or vomiting. He reports that he is having intermittent flatus but only when he goes to the bathroom. He shares that in the bathroom he is experiencing small loose stools. He denies any significant abdominal pain. Objective Data Objective Data Vital Signs: Vital Signs Temp Pulse Resp BP Pulse Ox O2 Del Method 98.3 F 80 16 121/54 H 97 Room Air 01/14/24 09:14 01/14/24 09:14 01/14/24 09:14 01/14/24 09:14 01/14/24 09:14 01/14/24 09:14 Oxygen Delivery Method Room Air Weight: 299 lb 13.259 oz Body Mass Index (BMI) 40.6 Intake & Output: Intake and Output for Last 24 Hours 01/12/24 01/13/24 01/14/24 23:59 23:59 23:59 Intake Total 2612.92 / 2612.92 3802 / 3802 Output Total 700 / 700 350 / 350 150 / 150 Balance 1912.92 / 1912.92 3452 / 3452 -150 / -150 Lab / Micro Data 01/13/24 05:42 01/13/24 05:42 Radiography Diagnostic Testing: Radiology Impression Small Bowel X-Ray 01/12/24 12:05 IMPRESSION: Contrast transits into the colon indicating ileus rather than obstruction. Electronically Signed: Isac Segundo DO at 11:50 EDT , Physical Exam Const oriented x3 and no apparent distress GI GI Narrative: Patient appears more distended today and tympanic. He is nontender to palpation. Assessment & Plan Assessment/Plan (1) SBO (small bowel obstruction): PLAN: Patient is a 78-year-old male who presents for acute onset abdominal discomfort and bloating. ER workup was consistent with a bowel obstruction. Continuing to treat patient for bowel ileus, however, this morning patient is more distended. Yet despite this exam finding he appears to be tolerating clear liquids without nausea or pain. Thus continue gradual advancement of his diet and try to reexamine his bowel gas pattern with a repeat KUB today. I have ordered another round of labs as well to be sure electrolytes are all within normal limits as a means of hastening return of bowel function. To his credit, Mr. Boucher continues to be out of bed in a chair and mobilize as he is able. Ming Lutz MD General Surgery Endocrine Surgery Pager: [facility] [address] [place] [address], [address] [place] [id number] Office: [phone] Charges/Coding Visit Charges Inpatient E&M: 13998 Subs Hosp L2
--- NOTE | 2024-01-14 10:00 | RAD_ITS ---
EXAM: XR ABDOMEN, 1 VIEW CLINICAL INDICATION: f/u ileus TECHNIQUE: Frontal supine view of the abdomen/pelvis. COMPARISON: 01/13/2024 FINDINGS: INTRAPERITONEAL SPACE: No distinct evidence of free air. GASTROINTESTINAL TRACT: Interval evacuation of the majority of previously demonstrated colorectal contrast. A small amount of colorectal contrast persists. Diffuse gaseous distention of small bowel loops similar to the prior examination suggesting ileus. ORGANS: Normal as visualized. No organomegaly. No abnormal calcifications. BONES/JOINTS: Degenerative changes and scoliotic curvature of the spine. SOFT TISSUES: No acute pathology. OTHER FINDINGS: Brachytherapy seeds of the prostate. RAD/Abdomen Single View IMPRESSION: 1. No distinct evidence of free air. 2. Interval evacuation of the majority of previously demonstrated colorectal contrast. A small amount of colorectal contrast persists. 3. Diffuse gaseous distention of small bowel loops similar to the prior examination suggesting ileus. Electronically Signed: Isac Segundo DO at 10:36 EDT ,
[2024-01-14 10:05] LABS: Absolute Lymphocyte Count 0.65 X10^3/uL (0.83-4.51); Absolute Neutrophil Count 3.5 X10^3/uL (2.0-7.7); Basophil# 0.03 X10^3/uL; Basophil% 0.6 % (0-1); Eosinophil# 0.11 X10^3/uL; Eosinophils% 2.3 % (0-5); Hemoglobin 11.9 g/dL (13.0-16.5); Lymphocyte # 0.65 X10^3/ul (0.83-4.51); Lymphocyte % 13.7 % (19-41); Mean Corp Hgb Conc 32.2 g/dL (32-36); Mean Corpuscular Hgb 29.5 pg (27.0-32.0); Mean Corpuscular Volume 91.8 fL (80-94); Mean Platelet Vol. 9.9 fl (6.2-12.0); Monocyte# 0.42 X10^3/uL; Monocyte% 8.9 % (0-10); NRBC Flagged by Analyzer 0 % (0-5); Neutrophil # 3.49 X10^3/uL (2.7-7.7); Neutrophil % 73.9 % (47-70); Platelet Count 135 K/mm3 (150-450); RBC Distribution Width CV 14.5 % (11.6-14.6); Red Blood Count 4.03 M/mm3 (4.6-6.2); White Blood Count 4.7 K/mm3 (4.4-11.0)
[2024-01-14 10:35] LABS: Anion Gap 5 (5-15); BUN 5 mg/dL (7-18); BUN/Creat Ratio 6.1 RATIO (10-20); Calcium,Total 8.1 mg/dL (8.5-10.1); Chloride 106 mmol/L (98-107); Creatinine, Serum 0.82 mg/dL (0.70-1.30); EST Glomerular Filtration Rate 97 mL/min (>60); Est Glom Filt Rate - Afr Amer 117 mL/min (>60); Estimated Creatinine Clearance 109.44 ml/min; Glucose 134 mg/dL (74-106); Magnesium 1.9 mg/dL (1.6-2.6); Phosphorus 2.4 mg/dL (2.5-4.9); Sodium Level 139 mmol/L (136-145)
[2024-01-14] MEDS: Bisacodyl 10 MG Suppository RC ×2 (10:37→17:32)
[2024-01-14] MEDS: 0.9% Normal Saline (1000mL) 1,000 ML 75 ML IV (10:38)
--- NOTE | 2024-01-14 13:43 | PN.HOSP_ITS ---
Reason for Visit Reason for Visit: Diagnoses Obesity, unspecified (01/12/24) Hypokalemia (01/12/24) Gastro-esophageal reflux disease without esophagitis (01/12/24) Unspecified intestinal obstruction, unspecified as to partial versus complete obstruction (01/12/24) Generalized abdominal pain (01/12/24) Nausea with vomiting, unspecified (01/12/24) Acquired absence of other specified parts of digestive tract (01/12/24) Subjective Subjective Patient was seen and examined today, I talked briefly with general surgery who feels that the patient still has an ileus. Patient was given a Dulcolax suppository today. Patient states he had 1 bowel movement this morning. Objective Data Objective Data Vital Signs: Vital Signs Temp Pulse Resp BP Pulse Ox O2 Del Method 97.6 F L 82 16 145/61 H 95 Room Air 01/14/24 11:52 01/14/24 13:08 01/14/24 13:08 01/14/24 11:52 01/14/24 11:52 01/14/24 13:19 Oxygen Delivery Method Room Air Weight: 136 kg Body Mass Index (BMI) 40.6 Intake & Output: Intake and Output for Last 24 Hours 01/12/24 01/13/24 01/14/24 23:59 23:59 23:59 Intake Total 2612.92 / 2612.92 3802 / 3802 1361.25 / 1361.25 Output Total 700 / 700 350 / 350 150 / 150 Balance 1912.92 / 1912.92 3452 / 3452 1211.25 / 1211.25 Lab / Micro Data 01/14/24 09:49 01/14/24 09:49 Labs: Laboratory Results - last 24 hr 01/14/24 09:49: WBC 4.7, RBC 4.03 L, Hgb 11.9 L, Hct 37.0 L, MCV 91.8, MCH 29.5, MCHC 32.2, RDW Std Deviation 49.0 H, RDW Coeff of Devorah 14.5, Plt Count 135 L, MPV 9.9, Immature Gran % (Auto) 0.600, Neut % (Auto) 73.9 H, Lymph % (Auto) 13.7 L, [place] % (Auto) 8.9, Eos % (Auto) 2.3, Baso % (Auto) 0.6, Absolute Neuts (auto) 3.5, Absolute Lymphs (auto) 0.65 L, Nucleated RBC % 0, Sodium 139, Potassium 3.0 L, Chloride 106, Carbon Dioxide 28.0, Anion Gap 5, BUN 5 L, Creatinine 0.82, Estim Creat Clear Calc 109.44, Est GFR (MDRD) Af Amer 117, Est GFR (MDRD) Non-Af 97, BUN/Creatinine Ratio 6.1 L, Glucose 134 H, Calcium 8.1 L, Phosphorus 2.4 L, Magnesium 1.9 Radiography Diagnostic Testing: Radiology Impression KUB X-Ray 01/14/24 10:00 IMPRESSION: 1. No distinct evidence of free air. 2. Interval evacuation of the majority of previously demonstrated colorectal contrast. A small amount of colorectal contrast persists. 3. Diffuse gaseous distention of small bowel loops similar to the prior examination suggesting ileus. Electronically Signed: Isac Segundo DO at 10:36 EDT , Physical Exam Narrative alert, oriented x3, no apparent distress and healthy appearing General Appearance: cooperative, well kempt and well developed Orientation / Consciousness: awake, oriented to person, oriented to place and oriented to time HEENT normocephalic, head/scalp atraumatic and moist oral mucous membranes Eyes PERRL, EOMs intact bilaterally and conjunctivae normal Neck supple, no JVD, thyroid normal and no carotid bruits General: trachea midline Resp normal respiratory effort, no retractions, no use of accessory muscles and clear to auscultation bilaterally Auscultation: Negative for rales, rhonchi or wheezes Cardio regular rate, regular rhythm, S1 normal heart sound, S2 normal heart sound, no murmurs, no rub and no gallops GI soft to palpation and non-tender GI Narrative: Abdomen is diffusely distended, it is nontender Auscultation: hypoactive bowel sounds Extremity no clubbing, cyanosis or edema Skin no rashes or lesions noted General Skin Exam: no breakdown Neuro oriented x3, CN's II-XII intact bilaterally, moves all extremities, no focal motor deficits and no sensory deficits noted Sensorium / Orientation: awake and alert Speech: speech normal Psych affect normal Assessment & Plan Assessment/Plan (1) SBO (small bowel obstruction): PLAN: Plan 1. Small bowel obstruction-resolved at this time, surgery feels that the patient has an ileus, continue present treatment per general surgery #2 essential hypertension-due to the patient's NG tube is hypertension medication is being held at this time #3 hyperlipidemia-patient is on a statin at home-this is being held at this time #4 chronic anxiety/depression-patient is on Effexor, this is being held at this time #5 hypokalemia-I will give the patient oral potassium and recheck BMP tomorrow Total clinical time spent by myself addressing the patient's medical issues, reviewing all of his data, and collaborating with patient's care team: 35 minutes Charges/Coding Visit Charges Inpatient E&M: 86838 Subs Hosp L2
[2024-01-14] MEDS: Potassium Chloride Oral Tablet 20 MEQ 40 MEQ PO (14:14)
[2024-01-14] MEDS: Metoprolol Tartrate 50 MG Tablet PO (21:59)
[2024-01-14] MEDS: Finasteride 5 MG Tablet PO (22:00)
[2024-01-14] MEDS: Venlafaxine XR 37.5 MG Capsule PO (22:01)
[2024-01-15] VITALS (10 sets, daily range): BP systolic 129–157; BP diastolic 59–88; PULSE 66–80; RESP 16–18; TEMP 36.4–37.1; O2SAT 95–98
[2024-01-15] MEDS: LORazepam 0.5 MG Tablet PO (00:54)
[2024-01-15] MEDS: Albuterol 2.5 MG/3 ML VIAL.NEB. INHALATION ×3 (07:22→19:27)
[2024-01-15] MEDS: Budesonide Respules 0.5 MG/2 ML AMPUL.NEB. INHALATION ×2 (07:22→19:27)
[2024-01-15 07:54] LABS: Anion Gap 7 (5-15); BUN 3 mg/dL (7-18); BUN/Creat Ratio 3.7 RATIO (10-20); Calcium,Total 8.4 mg/dL (8.5-10.1); Chloride 106 mmol/L (98-107); Creatinine, Serum 0.81 mg/dL (0.70-1.30); EST Glomerular Filtration Rate 98 mL/min (>60); Est Glom Filt Rate - Afr Amer 119 mL/min (>60); Estimated Creatinine Clearance 110.79 ml/min; Glucose 102 mg/dL (74-106); Potassium 3.2 mmol/L (3.5-5.1); Sodium Level 140 mmol/L (136-145)
--- NOTE | 2024-01-15 07:57 | PN.SURG_ITS ---
Subjective Subjective Patient is a 78 y/o M I am following in conjunction with Dr. Lutz. Patient notes feeling less distended than yesterday. He denies nausea, vomiting. He is tolerating clear liquids. He notes small amount of flatus overnight. He denies any pain this morning. No bowel movement. Objective Data Objective Data Vital Signs: Vital Signs Temp Pulse Resp BP Pulse Ox O2 Del Method 97.6 F L 80 18 138/67 H 98 Room Air 01/15/24 05:30 01/15/24 07:23 01/15/24 07:23 01/15/24 05:30 01/15/24 07:23 01/15/24 07:23 Oxygen Delivery Method Room Air Weight: 299 lb 13.259 oz Body Mass Index (BMI) 40.6 Intake & Output: Intake and Output for Last 24 Hours 01/13/24 01/14/24 01/15/24 23:59 23:59 23:59 Intake Total 3802 / 3802 1806.25 / 1806.25 660 / 660 Output Total 350 / 350 150 / 150 Balance 3452 / 3452 1656.25 / 1656.25 660 / 660 Lab / Micro Data 01/14/24 09:49 01/15/24 07:06 Labs: Laboratory Results - last 24 hr 01/14/24 09:49: WBC 4.7, RBC 4.03 L, Hgb 11.9 L, Hct 37.0 L, MCV 91.8, MCH 29.5, MCHC 32.2, RDW Std Deviation 49.0 H, RDW Coeff of Devorah 14.5, Plt Count 135 L, MPV 9.9, Immature Gran % (Auto) 0.600, Neut % (Auto) 73.9 H, Lymph % (Auto) 13.7 L, [place] % (Auto) 8.9, Eos % (Auto) 2.3, Baso % (Auto) 0.6, Absolute Neuts (auto) 3.5, Absolute Lymphs (auto) 0.65 L, Nucleated RBC % 0, Sodium 139, Potassium 3.0 L, Chloride 106, Carbon Dioxide 28.0, Anion Gap 5, BUN 5 L, Creatinine 0.82, Estim Creat Clear Calc 109.44, Est GFR (MDRD) Af Amer 117, Est GFR (MDRD) Non-Af 97, BUN/Creatinine Ratio 6.1 L, Glucose 134 H, Calcium 8.1 L, Phosphorus 2.4 L, Magnesium 1.9 01/15/24 07:06: Sodium 140, Potassium 3.2 L, Chloride 106, Carbon Dioxide 27.0, Anion Gap 7, BUN 3 L, Creatinine 0.81, Estim Creat Clear Calc 110.79, Est GFR (MDRD) Af Amer 119, Est GFR (MDRD) Non-Af 98, BUN/Creatinine Ratio 3.7 L, Glucose 102, Calcium 8.4 L Radiography Diagnostic Testing: Radiology Impression KUB X-Ray 01/14/24 10:00 IMPRESSION: 1. No distinct evidence of free air. 2. Interval evacuation of the majority of previously demonstrated colorectal contrast. A small amount of colorectal contrast persists. 3. Diffuse gaseous distention of small bowel loops similar to the prior examination suggesting ileus. Electronically Signed: Isac Segundo, at 10:36 EDT , Physical Exam GI GI Narrative: Abdomen- obese, slight distention. Hypoactive bowel sounds. Non-tender. Assessment & Plan Assessment/Plan (1) SBO (small bowel obstruction): PLAN: I am following this patient in conjunction with Dr. Lutz. He has independently evaluated this patient. Labs reviewed. Will replace potassium IV. Dulcolax suppository again today Will keep patient at clear liquids today Obtain enteric path stool study We will continue to monitor this patient with conservative measures Charges/Coding Visit Charges Inpatient E&M: 36139 Subs Hosp L1
[2024-01-15] MEDS: Metoprolol Tartrate 50 MG Tablet PO ×2 (08:53→21:28)
[2024-01-15] MEDS: Furosemide 40 MG Tablet PO (08:56)
[2024-01-15] MEDS: Enoxaparin 40 MG/0.4 ML Syringe SC ×2 (08:56→21:28)
[2024-01-15] MEDS: Bisacodyl 10 MG Suppository RC (09:37)
[2024-01-15] MEDS: Pantoprazole Sodium 40 MG in 0.9% Normal Saline (100mL MB+) 100 ML 330 MG IV ×2 (09:37→21:29)
[2024-01-15] MEDS: Venlafaxine XR 37.5 MG Capsule PO (09:38)
[2024-01-15] MEDS: Potassium Chloride 10mEq/100mL 10 MEQ/100 ML IV.SOLN. 100 MEQ IV BOLUS ×4 (10:38→15:09)
[2024-01-15] MEDS: Lactulose 20 GM/30 ML UDC 10 GM PO (15:52)
--- NOTE | 2024-01-15 16:19 | CHAPLAIN ---
Type of Pastoral Visit _x__ Initial Visit ___ Follow-up Visit ___ On-call Visit ___ General Patient Visit ___ Spiritual Assessment ___ Family Conference ___ Bereavement ___ Rapid Response ___ Code Blue ___ Other (describe below) Pastoral Care Referral From _x__ Patient ___ Family ___ Nurse ___ Physician ___ Registered Medical Assistant ___ Support Director ___ Other (describe below) Sacrament/Intervention _x__ Active listening ___ Anointing ___ Restorationist ___ Bereavement ___ Communion ___ Minal exploration ___ ___ Life review _x__ Prayer ___ Reconciliation ___ Sacrament of Sick _x__ Supportive presence ___ Wedding ___ Other (describe below) Pastoral Comments patient admits to disappointment and wishing I didn't agree to this; pt goal is to have body functions work again; pt states he is trying to handle this the best that he can but you can pray if you want; pt expresses thanks for the visit to offer help
--- NOTE | 2024-01-15 17:33 | PCM.PN.HOSP ---
Reason for Visit Reason for Visit: Diagnoses Obesity, unspecified (01/12/24) Hypokalemia (01/12/24) Gastro-esophageal reflux disease without esophagitis (01/12/24) Unspecified intestinal obstruction, unspecified as to partial versus complete obstruction (01/12/24) Generalized abdominal pain (01/12/24) Nausea with vomiting, unspecified (01/12/24) Acquired absence of other specified parts of digestive tract (01/12/24) Subjective Subjective Patient was seen and examined today, he still has not had significant bowel movements, lactulose ordered yesterday was canceled by surgery, patient was given a suppository today but did not have a bowel movement. I elected to place the patient on lactulose again, general surgery reduced the dose however. I am not sure a dose of 10 g is going to be enough to encourage a bowel movement. Objective Data Objective Data Vital Signs: Vital Signs Temp Pulse Resp BP Pulse Ox O2 Del Method 98.7 F 78 18 157/88 H 96 Room Air 01/15/24 16:08 01/15/24 16:08 01/15/24 16:08 01/15/24 16:08 01/15/24 16:08 01/15/24 16:08 Oxygen Delivery Method Room Air Weight: 136 kg Body Mass Index (BMI) 40.6 Intake & Output: Intake and Output for Last 24 Hours 01/13/24 01/14/24 01/15/24 23:59 23:59 23:59 Intake Total 3802 / 3802 1806.25 / 1806.25 1881.67 / 1881.67 Output Total 350 / 350 150 / 150 Balance 3452 / 3452 1656.25 / 1656.25 1881.67 / 1881.67 Lab / Micro Data 01/14/24 09:49 01/15/24 07:06 Labs: Laboratory Results - last 24 hr 01/15/24 07:06: Sodium 140, Potassium 3.2 L, Chloride 106, Carbon Dioxide 27.0, Anion Gap 7, BUN 3 L, Creatinine 0.81, Estim Creat Clear Calc 110.79, Est GFR (MDRD) Af Amer 119, Est GFR (MDRD) Non-Af 98, BUN/Creatinine Ratio 3.7 L, Glucose 102, Calcium 8.4 L Micro: Microbiology 01/15/24 08:44 Stool Enteric Bacteriology - Final Physical Exam Narrative alert, oriented x3, no apparent distress and healthy appearing General Appearance: cooperative, well kempt and well developed Orientation / Consciousness: awake, oriented to person, oriented to place and oriented to time HEENT normocephalic, head/scalp atraumatic and moist oral mucous membranes Eyes PERRL, EOMs intact bilaterally and conjunctivae normal Neck supple, no JVD, thyroid normal and no carotid bruits General: trachea midline Resp normal respiratory effort, no retractions, no use of accessory muscles and clear to auscultation bilaterally Auscultation: Negative for rales, rhonchi or wheezes Cardio regular rate, regular rhythm, S1 normal heart sound, S2 normal heart sound, no murmurs, no rub and no gallops GI soft to palpation and non-tender GI Narrative: Abdomen is diffusely distended, it is nontender Auscultation: hypoactive bowel sounds Extremity no clubbing, cyanosis or edema Skin no rashes or lesions noted General Skin Exam: no breakdown Neuro oriented x3, CN's II-XII intact bilaterally, moves all extremities, no focal motor deficits and no sensory deficits noted Sensorium / Orientation: awake and alert Speech: speech normal Psych affect normal Assessment & Plan Assessment/Plan (1) Intractable nausea and vomiting: (2) SBO (small bowel obstruction): PLAN: Plan 1. Small bowel obstruction-resolved at this time, surgery feels that the patient has an ileus, continue present treatment per general surgery #2 essential hypertension-patient is currently on furosemide and Lopressor #3 hyperlipidemia-patient is on a statin at home-this is being held at this time #4 chronic anxiety/depression-patient is on Effexor #5 hypokalemia-I will give the patient oral potassium and recheck BMP tomorrow Total clinical time spent by myself addressing the patient's medical issues, reviewing all of his data, and collaborating with patient's care team: 35 minutes Charges/Coding Visit Charges Inpatient E&M: 55481 Subs Hosp L2
[2024-01-15] MEDS: Potassium Chloride Oral Tablet 20 MEQ 40 MEQ PO (18:45)
[2024-01-15] MEDS: Finasteride 5 MG Tablet PO (21:29)
[2024-01-16] VITALS (9 sets, daily range): BP systolic 124–152; BP diastolic 56–75; PULSE 63–78; RESP 16–18; TEMP 36.4–36.9; O2SAT 94–98; BMI 40.8
[2024-01-16] MEDS: Albuterol 2.5 MG/3 ML VIAL.NEB. INHALATION ×3 (06:48→18:45)
[2024-01-16] MEDS: Budesonide Respules 0.5 MG/2 ML AMPUL.NEB. INHALATION ×2 (06:48→18:45)
[2024-01-16 07:24] LABS: Anion Gap 4 (5-15); BUN 3 mg/dL (7-18); BUN/Creat Ratio 3.8 RATIO (10-20); Calcium,Total 8.3 mg/dL (8.5-10.1); Chloride 107 mmol/L (98-107); EST Glomerular Filtration Rate 100 mL/min (>60); Est Glom Filt Rate - Afr Amer 121 mL/min (>60); Estimated Creatinine Clearance 112.36 ml/min; Glucose 92 mg/dL (74-106); Potassium 3.7 mmol/L (3.5-5.1); Sodium Level 140 mmol/L (136-145)
--- NOTE | 2024-01-16 07:55 | PN.HOSP_ITS ---
Reason for Visit Reason for Visit: Diagnoses Obesity, unspecified (01/12/24) Hypokalemia (01/12/24) Gastro-esophageal reflux disease without esophagitis (01/12/24) Unspecified intestinal obstruction, unspecified as to partial versus complete obstruction (01/12/24) Generalized abdominal pain (01/12/24) Nausea with vomiting, unspecified (01/12/24) Acquired absence of other specified parts of digestive tract (01/12/24) Subjective Subjective Patient is a 78-year-old gentleman admitted with abdominal pain following colonoscopy as outpatient imaging studies demonstrated ileus admitted to the regular nursing floor for further management Objective Data Objective Data Vital Signs: Vital Signs Temp Pulse Resp BP Pulse Ox O2 Del Method 97.8 F 63 17 152/75 H 98 Room Air 01/16/24 02:15 01/16/24 06:48 01/16/24 06:48 01/16/24 02:15 01/16/24 02:15 01/16/24 02:15 Oxygen Delivery Method Room Air Weight: 136.4 kg Body Mass Index (BMI) 40.8 Intake & Output: Intake and Output for Last 24 Hours 01/14/24 01/15/24 01/16/24 23:59 23:59 23:59 Intake Total 1806.25 / 1806.25 2941.67 / 2941.67 Output Total 150 / 150 Balance 1656.25 / 1656.25 2941.67 / 2941.67 Lab / Micro Data 01/14/24 09:49 01/16/24 06:05 Labs: Laboratory Results - last 24 hr 01/16/24 06:05: Sodium 140, Potassium 3.7, Chloride 107, Carbon Dioxide 29.0, A nion Gap 4 L, BUN 3 L, Creatinine 0.80, Estim Creat Clear Calc 112.36, Est GFR (MDRD) Af Amer 121, Est GFR (MDRD) Non-Af 100, BUN/Creatinine Ratio 3.8 L, Glucose 92, Calcium 8.3 L Micro: Microbiology 01/15/24 08:44 Stool Enteric Bacteriology - Final Physical Exam Narrative GENERAL: cooperative HEENT: Atraumatic; normocephalic EYES; Anicteric, Normal Conjunctiva NECK; supple, normal thyroid, RESPIRATORY: Diminished to auscultation CARDIOVASCULAR: Regular S1 S2, GI: soft, normoactive bowel sounds, : No Renal angle tenderness; EXTREMITIES: No edema, no clubbing, MUSCULOSKELETAL: no muscle wasting NEURO: Awake; no lateralizing signs. SKIN: No Rash PSYCH; Flat affect Assessment & Plan Assessment/Plan (1) Intractable nausea and vomiting: (2) SBO (small bowel obstruction): PLAN: Plan Patient is a 78-year-old gentleman admitted with abdominal pain following colonoscopy as outpatient imaging studies demonstrated ileus admitted to the regular nursing floor for further management 1. Small bowel obstruction-resolved at this time, surgery feels that the patient has an ileus, continue present treatment per general surgery #2 essential hypertension-patient is currently on furosemide and Lopressor #3 hyperlipidemia-patient is on a statin at home-this is being held at this time #4 chronic anxiety/depression-patient is on Effexor #5 hypokalemia-I will give the patient oral potassium and recheck BMP tomorrow Total clinical time spent by myself addressing the patient's medical issues, reviewing all of his data, and collaborating with patient's care team: 35 minutes
--- NOTE | 2024-01-16 07:55 | PCM.PN.HOSP ---
Reason for Visit Reason for Visit: Diagnoses Obesity, unspecified (01/12/24) Hypokalemia (01/12/24) Gastro-esophageal reflux disease without esophagitis (01/12/24) Unspecified intestinal obstruction, unspecified as to partial versus complete obstruction (01/12/24) Generalized abdominal pain (01/12/24) Nausea with vomiting, unspecified (01/12/24) Acquired absence of other specified parts of digestive tract (01/12/24) Subjective Subjective Patient is a 78-year-old gentleman admitted with abdominal pain following colonoscopy as outpatient imaging studies demonstrated ileus admitted to the regular nursing floor for further management Objective Data Objective Data Vital Signs: Vital Signs Temp Pulse Resp BP Pulse Ox O2 Del Method 97.8 F 63 17 152/75 H 98 Room Air 01/16/24 02:15 01/16/24 06:48 01/16/24 06:48 01/16/24 02:15 01/16/24 02:15 01/16/24 02:15 Oxygen Delivery Method Room Air Weight: 136.4 kg Body Mass Index (BMI) 40.8 Intake & Output: Intake and Output for Last 24 Hours 01/14/24 01/15/24 01/16/24 23:59 23:59 23:59 Intake Total 1806.25 / 1806.25 2941.67 / 2941.67 Output Total 150 / 150 Balance 1656.25 / 1656.25 2941.67 / 2941.67 Lab / Micro Data 01/14/24 09:49 01/16/24 06:05 Labs: Laboratory Results - last 24 hr 01/16/24 06:05: Sodium 140, Potassium 3.7, Chloride 107, Carbon Dioxide 29.0, Anion Gap 4 L, BUN 3 L, Creatinine 0.80, Estim Creat Clear Calc 112.36, Est GFR (MDRD) Af Amer 121, Est GFR (MDRD) Non-Af 100, BUN/Creatinine Ratio 3.8 L, Glucose 92, Calcium 8.3 L Micro: Microbiology 01/15/24 08:44 Stool Enteric Bacteriology - Final Physical Exam Narrative GENERAL: cooperative HEENT: Atraumatic; normocephalic EYES; Anicteric, Normal Conjunctiva NECK; supple, normal thyroid, RESPIRATORY: Diminished to auscultation CARDIOVASCULAR: Regular S1 S2, GI: Abdomen is distended and tympanitic to percussion : No Renal angle tenderness; EXTREMITIES: No edema, no clubbing, MUSCULOSKELETAL: no muscle wasting NEURO: Awake; no lateralizing signs. SKIN: No Rash PSYCH; Flat affect Assessment & Plan Assessment/Plan (1) Intractable nausea and vomiting: (2) SBO (small bowel obstruction): PLAN: Plan Patient is a 78-year-old gentleman admitted with abdominal pain following colonoscopy as outpatient imaging studies demonstrated ileus admitted to the regular nursing floor for further management 1. Ileus ? Following recent colonoscopy as outpatient. Patient has been managed conservatively with rather slow response. Imaging studies on admission demonstrated diffuse gaseous distention of small bowel loops. 2. Hypertension ? Blood pressure controlled, home medications continued with dose adjustment as needed 3. Class III obesity with BMI of 41 ? Complicating care weight loss advised 4. Hypokalemia -Corrected per protocol 5. Valvular heart disease ? With history of aortic valve replacement with bioprosthetic materia on 11/30/2020 6. Coronary artery disease ? Status post CABG patient remains on guideline directed medical therapy 7. BPH with lower urinary obstructive symptoms - Patient treated with finasteride 8. Dyslipidemia ?Patient is on statin therapy, continued at home dose 9. Depression with anxiety ? Patient is on venlafaxine 10. Generalized osteoarthritis ? Patient is on naproxen as needed 11. DVT prophylaxis ? On enoxaparin Time spent in the patient's overall evaluation,decision-making process, review of diagnostic data, adjustment of management, discussion with other providers, nursing nursing and ancillary staff involved in patient's care documentation, 51 Minutes Charges/Coding Visit Charges Inpatient E&M: 39234 [facility] L3
[2024-01-16] MEDS: Ipratropium Bromide 0.06% NASAL SPRAY 2 SPRAY NASAL (09:36)
[2024-01-16] MEDS: Venlafaxine XR 37.5 MG Capsule PO (09:37)
[2024-01-16] MEDS: Metoprolol Tartrate 50 MG Tablet PO ×2 (09:37→22:21)
[2024-01-16] MEDS: Furosemide 40 MG Tablet PO (09:37)
[2024-01-16] MEDS: Enoxaparin 40 MG/0.4 ML Syringe SC ×2 (09:41→22:22)
--- NOTE | 2024-01-16 09:42 | PCM.PN.SRG ---
Subjective Subjective Patient seen and examined during AM rounds. He is found up and about in his room. He describes feeling somewhat improved, but denies any effect with the lactulose administered yesterday. He continues to have infrequent flatus and loose bowels. He denies a significant appetite. He shares an observation that it is easier to cross his legs from left to right and right to left and suspects that as a general rule he may have more abdominal girth on the right than the left. Objective Data Objective Data Vital Signs: Vital Signs Temp Pulse Resp BP Pulse Ox O2 Del Method 97.8 F 78 17 143/73 H 98 Room Air 01/16/24 02:15 01/16/24 09:37 01/16/24 06:48 01/16/24 09:37 01/16/24 02:15 01/16/24 02:15 Oxygen Delivery Method Room Air Weight: 300 lb 11.368 oz Body Mass Index (BMI) 40.8 Intake & Output: Intake and Output for Last 24 Hours 01/14/24 01/15/24 01/16/24 23:59 23:59 23:59 Intake Total 1806.25 / 1806.25 2941.67 / 2941.67 Output Total 150 / 150 Balance 1656.25 / 1656.25 2941.67 / 2941.67 Lab / Micro Data 01/14/24 09:49 01/16/24 06:05 Labs: Laboratory Results - last 24 hr 01/16/24 06:05: Sodium 140, Potassium 3.7, Chloride 107, Carbon Dioxide 29.0, Anion Gap 4 L, BUN 3 L, Creatinine 0.80, Estim Creat Clear Calc 112.36, Est GFR (MDRD) Af Amer 121, Est GFR (MDRD) Non-Af 100, BUN/Creatinine Ratio 3.8 L, Glucose 92, Calcium 8.3 L Micro: Microbiology 01/15/24 08:44 Stool Enteric Bacteriology - Final Physical Exam Const oriented x3 and no apparent distress Resp normal respiratory effort GI GI Narrative: Some improvement in persistent abdominal distention, soft, nontender to palpation. Decreased tympany with percussion. Assessment & Plan Assessment/Plan (1) SBO (small bowel obstruction): PLAN: Patient is a 78-year-old male who presents for acute onset abdominal discomfort and bloating. ER workup was consistent with a bowel obstruction, however, further workup revealed evidence of a small bowel ileus. This morning patient's distention is improved. He is tolerating full liquids without nausea or vomiting and having some persistent bowel function. Unfortunately there was not a significant response to use of lactulose. Given the continued bowel function and tolerance of full liquid diet will advance to soft diet and monitor for tolerance. If patient tolerates this threshold would consider discharge to home as I do not believe at that point he would merit an inpatient stay any longer. Ming Lutz MD General Surgery Endocrine Surgery Pager: [facility] [address] [place] [address], [address] [place] [address] Office: [phone] Charges/Coding Visit Charges Inpatient E&M: 32691 [facility] Hosp L2
[2024-01-16] MEDS: Pantoprazole Sodium 40 MG in 0.9% Normal Saline (100mL MB+) 100 ML 330 MG IV ×2 (10:14→22:19)
[2024-01-16] MEDS: Finasteride 5 MG Tablet PO (22:21)
[2024-01-16] MEDS: 0.9% Saline Lock 10 ML Syringe IV (22:24)
[2024-01-17] VITALS (9 sets, daily range): BP systolic 115–143; BP diastolic 54–78; PULSE 70–80; RESP 16–20; TEMP 36.5–36.7; O2SAT 91–97; BMI 39.9
[2024-01-17] MEDS: Metoclopramide 10 MG/2 ML Vial 5 MG IV ×4 (05:35→23:35)
[2024-01-17] MEDS: 0.9% Saline Lock 10 ML Syringe IV ×6 (05:35→23:34)
--- NOTE | 2024-01-17 07:35 | RAD_ITS ---
STUDY: X-RAY - ABDOMEN/PELVIS REASON FOR EXAM: Male, 78 years old. Ileus TECHNIQUE: Single AP view of the abdomen / pelvis. COMPARISON: Comparison is made with prior study of January 14, 2024. FINDINGS: At this time, there is less gaseous distention of small bowel loops. There is mildly gaseous distention of the left hemicolon. This may represent colonic ileus. Nonobstructive right intrarenal calculi are seen. Radiation seeds are seen within the prostate. Normal soft tissue structures. There are diffuse degenerative changes of the visualized lumbar spine. Dextroscoliosis. RAD/Abd Inc Decub and/or Erect IMPRESSION: Less gaseous distention at this time. Electronically Signed: Waqas Yee MD at 12:11 EDT ,
--- NOTE | 2024-01-17 07:35 | PCM.PN.HOSP ---
Reason for Visit Reason for Visit: Diagnoses Obesity, unspecified (01/12/24) Hypokalemia (01/12/24) Gastro-esophageal reflux disease without esophagitis (01/12/24) Unspecified intestinal obstruction, unspecified as to partial versus complete obstruction (01/12/24) Generalized abdominal pain (01/12/24) Nausea with vomiting, unspecified (01/12/24) Acquired absence of other specified parts of digestive tract (01/12/24) Subjective Subjective Patient seen abdomen still remains distended. Diet being advanced. Ordered KUB this a.m. Objective Data Objective Data Vital Signs: Vital Signs Temp Pulse Resp BP Pulse Ox O2 Del Method 97.8 F 74 16 143/78 H 95 Room Air 01/17/24 05:47 01/17/24 05:47 01/17/24 05:47 01/17/24 05:47 01/17/24 05:47 01/17/24 05:47 Oxygen Delivery Method Room Air Weight: 133.6 kg Body Mass Index (BMI) 39.9 Intake & Output: Intake and Output for Last 24 Hours 01/15/24 01/16/24 01/17/24 23:59 23:59 23:59 Intake Total 2941.67 / 2941.67 1080 / 1080 240 / 240 Balance 2941.67 / 2941.67 1080 / 1080 240 / 240 Lab / Micro Data 01/17/24 07:15 01/17/24 07:15 Micro: Microbiology 01/15/24 08:44 Stool Enteric Bacteriology - Final Physical Exam Narrative GENERAL: cooperative HEENT: Atraumatic; normocephalic EYES; Anicteric, Normal Conjunctiva NECK; supple, normal thyroid, RESPIRATORY: Diminished to auscultation CARDIOVASCULAR: Regular S1 S2, GI: Abdomen is distended and tympanitic to percussion : No Renal angle tenderness; EXTREMITIES: No edema, no clubbing, MUSCULOSKELETAL: no muscle wasting NEURO: Awake; no lateralizing signs. SKIN: No Rash PSYCH; Flat affect Assessment & Plan Assessment/Plan (1) Intractable nausea and vomiting: (2) SBO (small bowel obstruction): PLAN: Plan Patient is a 78-year-old gentleman admitted with abdominal pain following colonoscopy as outpatient imaging studies demonstrated ileus admitted to the regular nursing floor for further management 1. Ileus ? Following recent colonoscopy as outpatient. Patient has been managed conservatively with rather slow response. Imaging studies on admission demonstrated diffuse gaseous distention of small bowel loops. ? 01/17/2024;Patient seen abdomen still remains distended. Diet being advanced. Ordered KUB this a.m. 2. Hypertension ? Blood pressure controlled, home medications continued with dose adjustment as needed 3. Class III obesity with BMI of 41 ? Complicating care weight loss advised 4. Hypokalemia -Corrected per protocol 5. Valvular heart disease ? With history of aortic valve replacement with bioprosthetic materia on 11/30/2020 6. Coronary artery disease ? Status post CABG patient remains on guideline directed medical therapy 7. BPH with lower urinary obstructive symptoms - Patient treated with finasteride 8. Dyslipidemia ?Patient is on statin therapy, continued at home dose 9. Depression with anxiety ? Patient is on venlafaxine 10. Generalized osteoarthritis ? Patient is on naproxen as needed 11. DVT prophylaxis ? On enoxaparin Time spent in the patient's overall evaluation,decision-making process, review of diagnostic data, adjustment of management, discussion with other providers, nursing nursing and ancillary staff involved in patient's care documentation, 38 minutes Charges/Coding Visit Charges Inpatient E&M: 27891 [facility] Hosp L2
--- NOTE | 2024-01-17 07:45 | PN.SURG_ITS ---
Subjective Subjective Patient seen and examined during AM rounds. He is found sitting out of bed in the chair. He is speaking with his on the phone. He expresses some frustration about his diet choices this morning. He confirms that he was able to tolerate a regular diet without subsequent nausea, vomiting, or increased abdominal pain he is passing flatus but has not had a bowel movement since yesterday which was minimal in volume Objective Data Objective Data Vital Signs: Vital Signs Temp Pulse Resp BP Pulse Ox O2 Del Method 97.8 F 74 16 143/78 H 95 Room Air 01/17/24 05:47 01/17/24 05:47 01/17/24 05:47 01/17/24 05:47 01/17/24 05:47 01/17/24 05:47 Oxygen Delivery Method Room Air Weight: 294 lb 8.601 oz Body Mass Index (BMI) 39.9 Intake & Output: Intake and Output for Last 24 Hours 01/15/24 01/16/24 01/17/24 23:59 23:59 23:59 Intake Total 2941.67 / 2941.67 1080 / 1080 240 / 240 Balance 2941.67 / 2941.67 1080 / 1080 240 / 240 Lab / Micro Data 01/17/24 07:15 01/17/24 07:15 Micro: Microbiology 01/15/24 08:44 Stool Enteric Bacteriology - Final Physical Exam Const oriented x3 and no apparent distress Resp normal respiratory effort GI GI Narrative: Stable abdominal girth, soft, nontender to palpation x 4 quadrants Assessment & Plan Assessment/Plan (1) SBO (small bowel obstruction): PLAN: Patient is a 78-year-old male who presents for acute onset abdominal discomfort and bloating. ER workup was consistent with a bowel obstruction, however, further workup revealed evidence of a small bowel ileus. This morning patient's distention is improved. He is tolerating transitional diet without nausea or vomiting but has not had bowel movement since this transition. We clarified food choices during this morning's visit and ordered a dose of MiraLAX to try to facilitate a bowel movement. I spent some substantial time simply trying to encourage Mr. Boucher as he appears discouraged by the slow progress. He was visited later in the day and found to be in a similar state of discouragement along with his . Again time was spent trying to encourage him. I also learned that a abdominal x-ray was obtained this morning showing some possibility of colonic ileus. I reviewed this independently and do not find any evidence of [place] syndrome and overall agree with radiology that the bowel gas pattern is reassuring showing significant decrease in the distention of the bowel loops. This afternoon he has ordered both milk of magnesia as well as a Dulcolax suppository to again try to facilitate a bowel movement. Will follow-up for results. Ming Lutz MD General Surgery Endocrine Surgery Pager: [facility] [address] [place] [address], [address] [place] [address] Office: [phone] Charges/Coding Visit Charges Inpatient E&M: 40811 [facility] Hosp L2
[2024-01-17] MEDS: Polyethylene Glycol 3350 17 GM PACKET PO (08:12)
[2024-01-17 08:19] LABS: Absolute Lymphocyte Count 0.88 X10^3/uL (0.83-4.51); Basophil# 0.03 X10^3/uL; Basophil% 0.7 % (0-1); Eosinophil# 0.22 X10^3/uL; Eosinophils% 4.9 % (0-5); Hematocrit 39.5 % (40-54); Hemoglobin 12.5 g/dL (13.0-16.5); Lymphocyte # 0.88 X10^3/ul (0.83-4.51); Lymphocyte % 19.4 % (19-41); Mean Corp Hgb Conc 31.6 g/dL (32-36); Mean Corpuscular Hgb 29.1 pg (27.0-32.0); Mean Corpuscular Volume 91.9 fL (80-94); Mean Platelet Vol. 10.3 fl (6.2-12.0); Monocyte% 8.8 % (0-10); NRBC Flagged by Analyzer 0 % (0-5); Neutrophil # 2.95 X10^3/uL (2.7-7.7); Neutrophil % 65.1 % (47-70); Platelet Count 179 K/mm3 (150-450); RBC Distribution Width CV 14.6 % (11.6-14.6); White Blood Count 4.5 K/mm3 (4.4-11.0)
[2024-01-17 08:48] LABS: Anion Gap 4 (5-15); BUN 6 mg/dL (7-18); BUN/Creat Ratio 6.3 RATIO (10-20); Calcium,Total 8.8 mg/dL (8.5-10.1); Chloride 104 mmol/L (98-107); Creatinine, Serum 0.94 mg/dL (0.70-1.30); EST Glomerular Filtration Rate 82 mL/min (>60); Est Glom Filt Rate - Afr Amer 100 mL/min (>60); Estimated Creatinine Clearance 94.56 ml/min; Glucose 80 mg/dL (74-106); Magnesium 2.1 mg/dL (1.6-2.6); Phosphorus 3.4 mg/dL (2.5-4.9); Potassium 3.5 mmol/L (3.5-5.1); Sodium Level 139 mmol/L (136-145)
[2024-01-17] MEDS: Furosemide 40 MG Tablet PO (10:03)
[2024-01-17] MEDS: Pantoprazole Sodium 40 MG in 0.9% Normal Saline (100mL MB+) 100 ML 330 MG IV ×2 (10:03→21:30)
[2024-01-17] MEDS: Venlafaxine XR 37.5 MG Capsule PO (10:04)
[2024-01-17] MEDS: Metoprolol Tartrate 50 MG Tablet PO ×2 (10:04→21:23)
[2024-01-17] MEDS: Enoxaparin 40 MG/0.4 ML Syringe SC ×2 (10:04→21:22)
[2024-01-17] MEDS: Albuterol 2.5 MG/3 ML VIAL.NEB. INHALATION ×2 (13:02→19:19)
[2024-01-17] MEDS: Budesonide Respules 0.5 MG/2 ML AMPUL.NEB. INHALATION ×2 (13:02→19:19)
[2024-01-17] MEDS: Magnesium Hydroxide 30 ML UDC PO (17:07)
[2024-01-17] MEDS: Bisacodyl 10 MG Suppository RC (17:07)
[2024-01-17] MEDS: Finasteride 5 MG Tablet PO (21:23)
[2024-01-17] MEDS: 0.9% Normal Saline (250mL Bag) 250 ML 15 ML IV (21:24)
[2024-01-18 02:25] VITALS: BP 114/51; PULSE 69; RESP 15; TEMP 36.8; O2SAT 94
[2024-01-18 06:00] VITALS: BMI 40.1
[2024-01-18] MEDS: Metoclopramide 10 MG/2 ML Vial 5 MG IV (06:29)
[2024-01-18] MEDS: 0.9% Saline Lock 10 ML Syringe IV (06:29)
--- NOTE | 2024-01-18 06:45 | PCM.PN.SRG ---
Subjective Subjective Patient continues to pass flatus with no bowel movement. He reports tolerating a transitional diet with no abdominal pain or nausea or vomiting Objective Data Objective Data Vital Signs: Vital Signs Temp Pulse Resp BP Pulse Ox O2 Del Method 98.3 F 69 15 114/51 L 94 Room Air 01/18/24 02:25 01/18/24 02:25 01/18/24 02:25 01/18/24 02:01/18/24 02:01/18/24 03:28 Oxygen Delivery Method Room Air Weight: 296 lb 8.348 oz Body Mass Index (BMI) 40.1 Intake & Output: Intake and Output for Last 24 Hours 01/16/24 01/17/24 01/18/24 23:59 23:59 23:59 Intake Total 1080 / 1080 1274.75 / 1274.75 210 / 210 Output Total 500 / 500 150 / 150 Balance 1080 / 1080 774.75 / 774.75 60 / 60 Lab / Micro Data 01/17/24 07:15 01/17/24 07:15 Labs: Laboratory Results - last 24 hr 01/17/24 07:15: WBC 4.5, RBC 4.30 L, Hgb 12.5 L, Hct 39.5 L, MCV 91.9, MCH 29.1, MCHC 31.6 L, RDW Std Deviation 49.0 H, RDW Coeff of [place]or[place] 14.6, Plt Count 179, MPV 10.3, Immature Gran % (Auto) 1.100 H, Neut % (Auto) 65.1, Lymph % (Auto) 19.4, [place] % (Auto) 8.8, Eos % (Auto) 4.9, Baso % (Auto) 0.7, Absolute Neuts (auto) 3.0, Absolute Lymphs (auto) 0.88, Nucleated RBC % 0, Sodium 139, Potassium 3.5, Chloride 104, Carbon Dioxide 31.0, Anion Gap 4 L, BUN 6 L, Creatinine 0.94, Estim Creat Clear Calc 94.56, Est GFR (MDRD) Af Amer 100, Est GFR (MDRD) Non-Af 82, BUN/Creatinine Ratio 6.3 L, Glucose 80, Calcium 8.8, Phosphorus 3.4, Magnesium 2.1 Micro: Microbiology 01/15/24 08:44 Stool Enteric Bacteriology - Final Radiography Diagnostic Testing: Radiology Impression Abdomen X-Ray 01/17/24 07:35 IMPRESSION: Less gaseous distention at this time. Electronically Signed: Waqas Yee MD at 12:11 EDT , Physical Exam Const oriented x3 and no apparent distress Resp normal respiratory effort GI soft to palpation Inspection: abdominal distention Assessment & Plan Assessment/Plan (1) SBO (small bowel obstruction): PLAN: Patient seems to still have colonic ileus. He is passing flatus but no bowel movement. I will order a fleets enema for stimulation. Continue diet Kun Burgess MD Pager: [facility] [address] [place] [address], [address] [place] [address] Office:
[2024-01-18] MEDS: Fleet Enema 133 ML RC (06:55)
[2024-01-18 07:29] VITALS: PULSE 69; RESP 18; O2SAT 95
[2024-01-18] MEDS: Albuterol 2.5 MG/3 ML VIAL.NEB. INHALATION ×2 (07:29→13:45)
[2024-01-18] MEDS: Budesonide Respules 0.5 MG/2 ML AMPUL.NEB. INHALATION (07:29)
[2024-01-18 08:00] VITALS: BP 133/58; PULSE 65; RESP 18; TEMP 36.3; O2SAT 96
--- NOTE | 2024-01-18 08:10 | PCM.PN.HOSP ---
Reason for Visit Reason for Visit: Diagnoses Obesity, unspecified (01/12/24) Hypokalemia (01/12/24) Gastro-esophageal reflux disease without esophagitis (01/12/24) Unspecified intestinal obstruction, unspecified as to partial versus complete obstruction (01/12/24) Generalized abdominal pain (01/12/24) Nausea with vomiting, unspecified (01/12/24) Acquired absence of other specified parts of digestive tract (01/12/24) Subjective Subjective Patient seen abdomen remains distended. He had to have a bowel movement. General surgery ordered Fleet enema for stimulation. Objective Data Objective Data Vital Signs: Vital Signs Temp Pulse Resp BP Pulse Ox O2 Del Method 98.3 F 69 15 114/51 L 94 Room Air 01/18/24 02:01/18/24 02:01/18/24 02:01/18/24 02:01/18/24 02:01/18/24 03:28 Oxygen Delivery Method Room Air Weight: 134.5 kg Body Mass Index (BMI) 40.1 Intake & Output: Intake and Output for Last 24 Hours 01/16/24 01/17/24 01/18/24 23:59 23:59 23:59 Intake Total 1080 / 1080 1274.75 / 1274.75 210 / 210 Output Total 500 / 500 150 / 150 Balance 1080 / 1080 774.75 / 774.75 60 / 60 Lab / Micro Data 01/18/24 07:53 01/17/24 07:15 Labs: Laboratory Results - last 24 hr 01/17/24 07:15: WBC 4.5, RBC 4.30 L, Hgb 12.5 L, Hct 39.5 L, MCV 91.9, MCH 29.1, MCHC 31.6 L, RDW Std Deviation 49.0 H, RDW Coeff of [place]or[place] 14.6, Plt Count 179, MPV 10.3, Immature Gran % (Auto) 1.100 H, Neut % (Auto) 65.1, Lymph % (Auto) 19.4, [place] % (Auto) 8.8, Eos % (Auto) 4.9, Baso % (Auto) 0.7, Absolute Neuts (auto) 3.0, Absolute Lymphs (auto) 0.88, Nucleated RBC % 0, Sodium 139, Potassium 3.5, Chloride 104, Carbon Dioxide 31.0, Anion Gap 4 L, BUN 6 L, Creatinine 0.94, Estim Creat Clear Calc 94.56, Est GFR (MDRD) Af Amer 100, Est GFR (MDRD) Non-Af 82, BUN/Creatinine Ratio 6.3 L, Glucose 80, Calcium 8.8, Phosphorus 3.4, Magnesium 2.1 Micro: Microbiology 01/15/24 08:44 Stool Enteric Bacteriology - Final Radiography Diagnostic Testing: Radiology Impression Abdomen X-Ray 01/17/24 07:35 IMPRESSION: Less gaseous distention at this time. Electronically Signed: Waqsa Yee MD at 12:11 EDT , Physical Exam Narrative GENERAL: cooperative HEENT: Atraumatic; normocephalic EYES; Anicteric, Normal Conjunctiva NECK; supple, normal thyroid, RESPIRATORY: Diminished to auscultation CARDIOVASCULAR: Regular S1 S2, GI: Abdomen is distended and tympanitic to percussion : No Renal angle tenderness; EXTREMITIES: No edema, no clubbing, MUSCULOSKELETAL: no muscle wasting NEURO: Awake; no lateralizing signs. SKIN: No Rash PSYCH; Flat affect Assessment & Plan Assessment/Plan (1) Intractable nausea and vomiting: (2) SBO (small bowel obstruction): PLAN: Plan Patient is a 78-year-old gentleman admitted with abdominal pain following colonoscopy as outpatient imaging studies demonstrated ileus admitted to the regular nursing floor for further management 1. Ileus ? Following recent colonoscopy as outpatient. Patient has been managed conservatively with rather slow response. Imaging studies on admission demonstrated diffuse gaseous distention of small bowel loops. ? 01/17/2024;Patient seen abdomen still remains distended. Diet being advanced. Ordered KUB this a.m. ? 01/18/2024;Patient seen abdomen remains distended. He had to have a bowel movement. General surgery ordered Fleet enema for stimulation. Added lactulose MiraLAX and Senokot 2. Hypertension ? Blood pressure controlled, home medications continued with dose adjustment as needed 3. Class III obesity with BMI of 41 ? Complicating care weight loss advised 4. Hypokalemia -Corrected per protocol 5. Valvular heart disease ? With history of aortic valve replacement with bioprosthetic materia on 11/30/2020 6. Coronary artery disease ? Status post CABG patient remains on guideline directed medical therapy 7. BPH with lower urinary obstructive symptoms - Patient treated with finasteride 8. Dyslipidemia ?Patient is on statin therapy, continued at home dose 9. Depression with anxiety ? Patient is on venlafaxine 10. Generalized osteoarthritis ? Patient is on naproxen as needed 11. DVT prophylaxis ? On enoxaparin Time spent in the patient's overall evaluation,decision-making process, review of diagnostic data, adjustment of management, discussion with other providers, nursing nursing and ancillary staff involved in patient's care documentation, 36 minutes Charges/Coding Visit Charges Inpatient E&M: [id number] [facility] Hosp L2
[2024-01-18 08:37] LABS: Absolute Lymphocyte Count 0.71 X10^3/uL (0.83-4.51); Absolute Neutrophil Count 3.2 X10^3/uL (2.0-7.7); Basophil# 0.03 X10^3/uL; Basophil% 0.7 % (0-1); Eosinophil# 0.14 X10^3/uL; Eosinophils% 3.1 % (0-5); Hematocrit 38.1 % (40-54); Hemoglobin 12.2 g/dL (13.0-16.5); Lymphocyte # 0.71 X10^3/ul (0.83-4.51); Lymphocyte % 15.6 % (19-41); Mean Corpuscular Hgb 29.6 pg (27.0-32.0); Mean Corpuscular Volume 92.5 fL (80-94); Monocyte# 0.41 X10^3/uL; NRBC Flagged by Analyzer 0 % (0-5); Neutrophil # 3.19 X10^3/uL (2.7-7.7); Neutrophil % 69.8 % (47-70); Platelet Count 158 K/mm3 (150-450); RBC Distribution Width CV 14.5 % (11.6-14.6); RBC Distribution Width SD 49.1 fl (35.1-43.9); Red Blood Count 4.12 M/mm3 (4.6-6.2); White Blood Count 4.6 K/mm3 (4.4-11.0)
[2024-01-18] MEDS: Senna/Docusate Sodium 1 Tablet 2 TABLET PO (09:52)
[2024-01-18] MEDS: Pantoprazole Sodium 40 MG in 0.9% Normal Saline (100mL MB+) 100 ML 330 MG IV (09:52)
[2024-01-18] MEDS: Lactulose 20 GM/30 ML UDC PO (09:52)
[2024-01-18] MEDS: Enoxaparin 40 MG/0.4 ML Syringe SC (09:52)
[2024-01-18 09:53] VITALS: BP 133/58; PULSE 65
[2024-01-18] MEDS: Metoprolol Tartrate 50 MG Tablet PO (09:53)
[2024-01-18] MEDS: Polyethylene Glycol 3350 17 GM PACKET 34 GM PO (09:54)
[2024-01-18] MEDS: Ipratropium Bromide 0.06% NASAL SPRAY 2 SPRAY NASAL (09:54)
[2024-01-18] MEDS: Venlafaxine XR 37.5 MG Capsule PO (09:54)
[2024-01-18 10:33] LABS: Anion Gap 6 (5-15); BUN 9 mg/dL (7-18); BUN/Creat Ratio 10.5 RATIO (10-20); Calcium,Total 8.8 mg/dL (8.5-10.1); Chloride 103 mmol/L (98-107); Creatinine, Serum 0.86 mg/dL (0.70-1.30); EST Glomerular Filtration Rate 93 mL/min (>60); Est Glom Filt Rate - Afr Amer 112 mL/min (>60); Estimated Creatinine Clearance 103.73 ml/min; Glucose 93 mg/dL (74-106); Potassium 3.5 mmol/L (3.5-5.1); Sodium Level 140 mmol/L (136-145)
--- NOTE | 2024-01-18 11:53 | CASEMGMT ---
RN CM into pt room, pt sitting up in chair dressed in no distress. Pt denies any homegoing needs. No therapy recommended.
--- NOTE | 2024-01-18 13:14 | PCM.DC.SUM ---
Providers Date of Admission: 01/12/24 Date of Discharge: 01/18/24 Primary Care Physician: Dr. Antonio Rangel MD Consultations 01/12/24 17:56 Consult: General Surgery Routine Consulting Provider: Ming Lutz Reason for Consult: SBO EMERGENT Consult: No MD Notified: Yes Date Notified: 01/12/24 Time Notified: 17:57 Method of Notification: Verbal Reason For Visit: SBO, INTRACTABLE N/V & ABDOMINAL PAIN Diagnosis Discharge Diagnosis (1) Intractable nausea and vomiting: Status: Acute Code(s): R11.2 - Nausea with vomiting, unspecified (2) SBO (small bowel obstruction): Status: Acute Code(s): K56.609 - Unspecified intestinal obstruction, unspecified as to partial versus complete obstruction Plan Patient is a 78-year-old gentleman admitted with abdominal pain following colonoscopy as outpatient imaging studies demonstrated ileus admitted to the regular nursing floor for further management 1. Ileus ? Following recent colonoscopy as outpatient. Patient has been managed conservatively with rather slow response. Imaging studies on admission demonstrated diffuse gaseous distention of small bowel loops. ? 01/17/2024;Patient seen abdomen still remains distended. Diet being advanced. Ordered KUB this a.m. ? 01/18/2024;Patient seen abdomen remains distended. He had to have a bowel movement. General surgery ordered Fleet enema for stimulation. Added lactulose MiraLAX and Senokot ? Patient responded to treatment discharged home recommend follow-up with primary care physician in 3 to 5 days for subsequent 2. Hypertension ? Blood pressure controlled, home medications continued with dose adjustment as needed 3. Class III obesity with BMI of 41 ? Complicating care weight loss advised 4. Hypokalemia -Corrected per protocol 5. Valvular heart disease ? With history of aortic valve replacement with bioprosthetic materia on 11/30/2020 6. Coronary artery disease ? Status post CABG patient remains on guideline directed medical therapy 7. BPH with lower urinary obstructive symptoms - Patient treated with finasteride 8. Dyslipidemia ?Patient is on statin therapy, continued at home dose 9. Depression with anxiety ? Patient is on venlafaxine 10. Generalized osteoarthritis ? Patient is on naproxen as needed 11. DVT prophylaxis ? On enoxaparin Time spent in the patient's overall evaluation,decision-making process, review of diagnostic data, adjustment of management, discussion with other providers, nursing nursing and ancillary staff involved in patient's care documentation, 36 minutes Medications at Discharge Home Medications finasteride 5 mg tablet 5 mg PO QHS URINARY RETENTION 07/08/17 lorazepam 0.5 mg tablet 0.5 mg PO TID PRN ANXIETY 07/08/17 biotin 10,000 mcg capsule (Etienne Biotin) 10,000 mcg PO DAILY SUPPLEMENT 11/27/18 zinc 50 mg tablet 50 mg PO DAILY SUPPLEMENT 11/27/18 metoprolol tartrate 50 mg tablet 50 mg PO BID BLOOD PRESSURE 12/31/20 acetaminophen 500 mg tablet 500 mg PO Q6H PRN Pain 01/08/21 amlodipine 5 mg tablet 5 mg PO DAILY BLOOD PRESSURE 01/08/21 cholecalciferol (vitamin D3) 125 mcg (5,000 unit) tablet (Vitamin D3) 125 mcg PO DAILY SUPPLEMENT 01/08/21 multivit,Ca,min-iron 8 mg-folic acid 200 mcg-lycopene 600 mcg tablet (Centrum Men) 1 tab PO DAILY SUPPLEMENT 01/08/21 venlafaxine 37.5 mg capsule,extended release 24 hr 37.5 mg PO DAILY ANTIDEPRESSANT 01/08/21 aspirin 81 mg tablet,delayed release (Adult Aspirin Regimen) 81 mg PO DAILY HEART HEALTH 06/06/21 lactobacillus combination no.9 4 billion cell capsule (Adult 50 Plus Probiotic) 8,000 mmu cells PO DAILY GUT HEALTH 06/06/21 vitamin K2 100 mcg capsule 100 mcg PO DAILY SUPPLEMENT 06/06/21 rosuvastatin 20 mg tablet 20 mg PO DAILY CHOLESTEROL #90 tabs 01/25/22 calcium carbonate 600 mg-vitamin D3 5 mcg (200 unit) capsule 1 cap PO DAILY SUPPLEMENT 06/08/22 dicyclomine 20 mg tablet 20 mg PO BID PRN IRRITABLE BOWELS 06/08/22 ipratropium bromide 42 mcg (0.06 %) nasal spray 2 spray intranasal BID allergies 06/14/23 fluticasone 100 mcg-salmeterol 50 mcg/dose blistr powdr for inhalation (Wixela Inhub) 1 inh inhalation BID asthma 09/28/23 melatonin 3 mg capsule 3 mg PO HS sleep 12/13/23 polyethylene glycol 3350 17 gram/dose oral powder 17 g PO DAILY PRN CONSTIPATION 12/13/23 psyllium husk 3.4 gram/5.4 gram oral powder (Metamucil) 1 tsp PO DAILY CONSTIPATON 12/13/23 vitamin B complex 1 tab PO DAILY supplement 12/13/23 furosemide 40 mg tablet 40 mg PO DAILY FLUID 01/12/24 Physical Exam Narrative GENERAL: cooperative HEENT: Atraumatic; normocephalic EYES; Anicteric, Normal Conjunctiva NECK; supple, normal thyroid, RESPIRATORY: Diminished to auscultation CARDIOVASCULAR: Regular S1 S2, GI: Abdomen less distended compared to previous : No Renal angle tenderness; EXTREMITIES: No edema, no clubbing, MUSCULOSKELETAL: no muscle wasting NEURO: Awake; no lateralizing signs. SKIN: No Rash PSYCH; Flat affect Weight / BMI Weight Weight: 134.5 kg Body Mass Index (BMI) 40.1 ABG / Lab / Microbiology Data 01/18/24 07:53 01/18/24 07:53 Laboratory: Laboratory Results - last 24 hr 01/18/24 07:53: WBC 4.6, RBC 4.12 L, Hgb 12.2 L, Hct 38.1 L, MCV 92.5, MCH 29.6, MCHC 32.0, RDW Std Deviation 49.1 H, RDW Coeff of [place] 14.5, Plt Count 158, MPV 10.0, Immature Gran % (Auto) 1.800 H, Neut % (Auto) 69.8, Lymph % (Auto) 15.[address] L, [place] % (Auto) 9.0, Eos % (Auto) 3.1, Baso % (Auto) 0.7, Absolute Neuts (auto) 3.2, Absolute Lymphs (auto) 0.71 L, Nucleated RBC % 0, Sodium 140, Potassium 3.5, Chloride 103, Carbon Dioxide 31.0, Anion Gap 6, BUN 9, Creatinine 0.86, Estim Creat Clear Calc 103.73, Est GFR (MDRD) Af Amer 112, Est GFR (MDRD) Non-Af 93, BUN/Creatinine Ratio 10.5, Glucose 93, Calcium 8.8 Microbiology: Microbiology 01/15/24 08:44 Stool Enteric Bacteriology - Final D/C Instructions Discharge Diet: No restrictions Discharge Activity: Return to Normal Activity Call your doctor if you observe: Fever of 101 or Higher, Shortness of breath, Fainting spells and Chest pain Meaningful Use Info Meaningful Use Meaningful Use Diagnoses (Choose all that apply): None applicable Ischemic Stroke Statin Dosing Therapy Reference: STATIN DOSE THERAPY REFERENCE: * Patients > 75 years receive moderate or high dose statin therapy. * Patients 75 years or YOUNGER should receive HIGH intensity statin dose unless contraindicated. You will be required to document reason for non-treatment if statin daily dose does not meet guidelines. HIGH DOSE STATIN THERAPY DAILY Atorvastatin > than or = to 40 mg Rosuvastatin > than or = to 20 mg Amlodipine + Atorvastatin > than or = to 2.5/40 mg Ezetimibe + Simvastatin 10/80 mg Simvastatin 80mg Discharge Plan Admission Admit Date/Time: 01/12/24 04:48 Attending Provider: Philip Perea Primary Care Provider: Antonio Rangel Consulting Providers: Philip Ramsey; Ming Lutz; Clem Louis Discharge Orders/Prescriptions Prescriptions: Continued zinc 50 mg tablet 50 mg PO DAILY biotin [Etienne Biotin] 10,000 mcg capsule 10,000 mcg PO DAILY calcium carbonate-vitamin D3 600 mg-5 mcg (200 unit) capsule 1 cap PO DAILY polyethylene glycol 3350 17 gram/dose powder 17 g PO DAILY PRN (Reason: CONSTIPATION ) Adult 50 Plus Probiotic 4 billion cell capsule 8,000 mmu cells PO DAILY Rx Instructions: administer with a meal aspirin [Adult Aspirin Regimen] 81 mg tablet,delayed release (DR/EC) 81 mg PO DAILY vitamin K2 100 mcg capsule 100 mcg PO DAILY dicyclomine 20 mg tablet 20 mg PO BID PRN (Reason: IRRITABLE BOWELS) Metamucil 3.4 gram/5.4 gram powder 1 tsp PO DAILY Rx Instructions: mix into at least 4 oz water or juice before administering ipratropium bromide 42 mcg (0.06 %) spray,non-aerosol 2 spray intranasal BID Patient Comments: instill 2 sprays into each nostril twice a day melatonin 3 mg capsule 3 mg PO HS vitamin B complex Tablet 1 tab PO DAILY fluticasone propion-salmeterol [Wixela Inhub] 100-50 mcg/dose blister with device 1 inh inhalation BID finasteride 5 MG tablet 5 mg PO QHS lorazepam 0.5 MG tablet 0.5 mg PO TID PRN (Reason: ANXIETY ) metoprolol tartrate 50 mg Tablet 50 mg PO BID amlodipine 5 mg Tablet 5 mg PO DAILY acetaminophen 500 mg Tablet 500 mg PO Q6H PRN (Reason: Pain) cholecalciferol (vitamin D3) [Vitamin D3] 125 mcg (5,000 unit) Tablet 125 mcg PO DAILY Centrum Men 8 mg iron- 200 mcg-600 mcg Tablet 1 tab PO DAILY venlafaxine 37.5 MG capsule,extended release 24hr 37.5 mg PO DAILY furosemide 40 mg tablet 40 mg PO DAILY rosuvastatin 20 mg tablet 20 mg PO DAILY Qty: 90 3RF Discontinued naproxen sodium 220 mg capsule 220 mg PO BID PRN (Reason: pain) ibuprofen 200 mg tablet 200 mg PO Q6H PRN (Reason: pain) Rx Instructions: Okay to take in small quantities. Referrals / Follow Up: Heydi Bean MD [Med Staff - Active Staff] - Within 1 Week Antonio Rangel MD [Primary Care Provider] - Within 1 Week Disposition Disposition (needs filled in before D/C Order can be placed): Home, Self Care Charges/Coding Visit Charges Inpatient E&M: 94825 Disch Hosp >30min
[2024-01-18 13:46] VITALS: PULSE 72; RESP 18
[2024-01-18 15:00] VITALS: BP 141/60; PULSE 67; RESP 18; TEMP 36.4; O2SAT 97
== END 2024-01-18 15:21 | disposition home or self-care (01) | DRG 394 ==
LOC: ED 01-12 03:16 → MS3 01-12 04:55
PROVIDERS: Internal Medicine; Surgery; Admitting Provider Internal Medicine; Emergency Provider Emergency Medicine; PCP Family Medicine; Visit Provider Internal Medicine
DX: K91.89 Other postprocedural complications and disorders of digestive system (principal); I50.32 Chronic diastolic (congestive) heart failure; K56.7 Ileus, unspecified; N13.4 Hydroureter; I11.0 Hypertensive heart disease with heart failure; I73.9 Peripheral vascular disease, unspecified; F32.A Depression, unspecified; E66.9 Obesity, unspecified; I25.10 Atherosclerotic heart disease of native coronary artery without angina pectoris; E87.6 Hypokalemia; E78.5 Hyperlipidemia, unspecified; K21.9 Gastro-esophageal reflux disease without esophagitis; M17.11 Unilateral primary osteoarthritis, right knee; M51.36 Other intervertebral disc degeneration, lumbar region; L71.9 Rosacea, unspecified; K40.20 Bilateral inguinal hernia, without obstruction or gangrene, not specified as recurrent; K58.9 Irritable bowel syndrome, unspecified; F41.9 Anxiety disorder, unspecified; N40.1 Benign prostatic hyperplasia with lower urinary tract symptoms; Z79.899 Other long term (current) drug therapy; Z79.82 Long term (current) use of aspirin; Z95.1 Presence of aortocoronary bypass graft; Z87.891 Personal history of nicotine dependence; Z68.39 Body mass index [BMI] 39.0-39.9, adult
CPT/HCPCS: 36415; 74018; 74019; 74177; 74250; 80048; 80053; 81001; 83605; 83735; 84100; 84443; 85025; 87506; 94640; 97110; 97116; 97162; 97166; 97530; 99284; Q9967; A4216

== ENCOUNTER → 2024-01-31 | Outpatient (CLI) | payer MEDICARE, OTHER, SELFPAY ==
--- NOTE | 2024-01-31 14:41 | ECHOCS_ITS ---
Reason For Study: AV Evaluation Procedure This was a 2D Doppler, Color Flow transthoracic echocardiogram. The study was technically difficult. Contrast injection was performed. Exam performed in department. Left Ventricle Normal LV size. Left ventricular systolic function is normal. The left ventricular ejection fraction is 65 %. Stage 1 diastolic dysfunction. No regional wall motion abnormalities noted. Right Ventricle Normal RV size. Normal systolic function. Tricuspid Valve Normal tricuspid valve. Aortic Valve Mild to moderate aortic stenosis. Peak aortic valve gradient 39 mmHg. Mean aortic valve gradient 20 mmHg. Bioprosthetic aortic valve. Pulmonic Valve The pulmonic valve is not well visualized. Great Vessels Normal aortic root. Pericardium/Pleural No pericardial effusion. Medication 22 gauge I.V. with prn adaptor inserted into left arm. Diluted definity 2ml given slow IV push to enhance endocardial definition. MMode/2D Measurements & Calculations LVIDd: 4.9 cm IVSd: 1.1 cm LVOT diam: 2.0 cm LVIDs: 3.0 cm LVPWd: 1.1 cm LVOT area: 3.0 cm2 RVDd: 4.5 cm FS: 38.1 % Ao root diam: 3.7 cm LAV(MOD-sp4): 73.0 ml LA A4 area: 23.9 cm2 LA dimension: 4.8 cm RA A4 area: 19.4 cm2 Time Measurements MV dec time: 0.21 sec Doppler Measurements & Calculations MV E max anna: 86.2 cm/sec MV V2 max: 128.6 cm/sec MV P1/2t max anna: 129.6 cm/sec MV A max anna: 106.2 cm/sec MV max P.6 mmHg MV P1/2t: 84.6 msec MV E/A: 0.81 MV V2 mean: 68.5 cm/sec MV mean P.4 mmHg MV dec slope: 448.7 cm/sec2 MV V2 VTI: 28.7 cm MVA(P1/2t): 2.6 cm2 MVA(VTI): 3.1 cm2 Ao V2 max: 311.5 cm/sec LV V1 max: 133.5 cm/sec SV(LVOT): 90.2 ml Ao max P.8 mmHg LV V1 max P.1 mmHg Ao V2 mean: 202.4 cm/sec LV V1 mean P.5 mmHg Ao mean P.5 mmHg LV V1 mean: 86.4 cm/sec Ao V2 VTI: 60.6 cm LV V1 VTI: 30.1 cm AV (velocity ratio): 0.50 ADRIANA(I,D): 1.5 cm2 ADRIANA(V,D): 1.3 cm2 PA V2 max: 113.5 cm/sec PA V2 mean: 74.0 cm/sec ECHO/Echo Complete W/ Contrast Interpretation Summary Normal LV size. Left ventricular systolic function is normal. The left ventricular ejection fraction is 65 %. Stage 1 diastolic dysfunction. Mean aortic valve gradient 20 mmHg. Compared to the previous the above gradients essentially unchanged. Bioprosthetic aortic valve. Ordering Physician: Joel Pace Referring Physician: Joel Pace Performed By: Oswaldo Miller RCS
== END | disposition home or self-care (01) ==
LOC: CVS 14:40
PROVIDERS: PCP Family Medicine; Referring Provider Nurse Practitioner Family; Visit Provider Nurse Practitioner Family
DX: Z95.3 Presence of xenogenic heart valve (principal)
CPT/HCPCS: 93306; Q9957; A4216; C8929

== ENCOUNTER → 2025-02-19 | Outpatient (CLI) | payer MEDICARE, OTHER, SELFPAY ==
--- NOTE | 2025-02-19 13:49 | ECHOCS_ITS ---
Reason For Study Reason For Study: EVAL AORTIC VALVE Procedure This was a 2D Doppler, Color Flow transthoracic echocardiogram. The study was technically difficult. Exam performed in department. Left Ventricle Normal LV size. The left ventricular ejection fraction is 65 %. No regional wall motion abnormalities noted. Right Ventricle Normal RV size. Normal systolic function. Atria The left atrium is mildly enlarged. The right atrium is mildly enlarged. Mitral Valve Normal mitral valve. Tricuspid Valve Normal tricuspid valve. Mild-Moderate (1-2+) tricuspid valve insufficiency. Pulmonary artery systolic pressure is 40 mmHg. Aortic Valve Peak aortic valve gradient 44 mmHg. Mean aortic valve gradient 23 mmHg. Mild to moderate aortic stenosis. Bioprosthetic aortic valve. Pulmonic Valve The pulmonic valve is not well visualized. Great Vessels Normal aortic root. The pulmonary artery is normal size. Inferior vena cava collapse with respiration. Pericardium/Pleural No pericardial effusion. Medication 22 gauge I.V. with prn adaptor inserted into right arm. Diluted definity 1.5ml given slow IV push to enhance endocardial definition. MMode/2D Measurements & Calculations LVIDd: 4.3 cm IVSd: 1.2 cm LVOT diam: 2.0 cm LVIDs: 2.9 cm LVPWd: 1.00 cm RVDd: 4.3 cm FS: 33.3 % LVOT area: 3.1 cm2 Ao root diam: 3.3 cm LAV(MOD-bp): 65.5 ml LVAd ap4: 40.8 cm2 LAV(MOD-bp) Indexed: 26.5 ml/m2 LVLd ap4: 9.8 cm LAV(MOD-sp2): 66.2 ml EDV(MOD-sp4): 138.9 ml LAV(MOD-sp4): 62.4 ml EDV(sp4-el): 144.1 ml LVAs ap4: 22.3 cm2 LVLs ap4: 8.6 cm ESV(MOD-sp4): 50.3 ml ESV(sp4-el): 49.2 ml EF(MOD-sp4): 63.8 % EF(sp4-el): 65.9 % SV(MOD-sp4): 88.6 ml SV(sp4-el): 94.9 ml LA A4 area: 22.3 cm2 SI(MOD-sp4): 35.8 ml/m2 LA dimension(2D): 4.7 cm RA A4 area: 21.3 cm2 TAPSE: 2.1 cm Time Measurements MV dec time: 0.26 sec Doppler Measurements & Calculations MV E max matt: 106.4 cm/sec Lat Peak E' Matt: 9.1 cm/sec Med Peak E' Matt: 7.4 cm/sec MV A max matt: 80.6 cm/sec E/E' lat: 11.7 E/E' med: 14.5 MV E/A: 1.3 Ao V2 max: 330.7 cm/sec LV V1 max: 140.8 cm/sec SV(LVOT): 110.0 ml Ao max P.7 mmHg LV V1 max P.9 mmHg Ao V2 mean: 220.7 cm/sec LV V1 mean P.1 mmHg Ao mean P.5 mmHg LV V1 mean: 108.5 cm/sec Ao V2 VTI: 74.6 cm LV V1 VTI: 36.0 cm AV (velocity ratio): 0.48 ADRIANA(I,D): 1.5 cm2 ADRIANA(V,D): 1.3 cm2 PA V2 max: 99.7 cm/sec TR max matt: 299.2 cm/sec TR max P.8 mmHg ECHO/Echo Complete W/ Contrast Interpretation Summary Normal LV size. The left ventricular ejection fraction is 65 %. The left atrium is mildly enlarged. The right atrium is mildly enlarged. Pulmonary artery systolic pressure is 40 mmHg. Bioprosthetic aortic valve. Mild to moderate aortic stenosis. Mean aortic valve gradient 23 mmHg. Contrast injection was performed. Ordering Physician: Joel Pace Referring Physician: TALITA STEWART Performed By: Reanna Delatorre RDCS
== END | disposition home or self-care (01) ==
LOC: CVS 13:48
PROVIDERS: PCP Family Medicine; Referring Provider Nurse Practitioner Family; Visit Provider Nurse Practitioner Family
DX: I35.0 Nonrheumatic aortic (valve) stenosis (principal)
CPT/HCPCS: 93306; Q9957; A4216; C8929